=== PATIENT | male | born 1965 | race Caucasian/White ===

== ENCOUNTER 2016-10-15 17:37 | Emergency (ER) | payer BC ==
[2016-10-15 17:52] VITALS: O2SAT 99
[2016-10-15] MEDS ORDERED: solu-MEDROL 125 MG IM ONE (18:37)
[2016-10-15] MEDS ORDERED: DUONEB 0.5-3 MG/3 ml Neb IH ONE ×2 (18:37→18:42)
[2016-10-15] MEDS ORDERED: solu-MEDROL 125 MG ONE (18:38)
--- NOTE | 2016-10-15 18:39 | ERPHSYRPT ---
- History of Present Illness Time Seen by Provider: 10/15/16 18:32 Source: patient Exam Limitations: no limitations Patient Subjective Stated Complaint: cough Triage Nursing Assessment: cough intermittent for 4 weeks. yellow/green sputum production. no fever. clear nasal drainage. lungs clear. states gets sob with excertion. dry cough noted. moist oral membranes Physician History: The patient is a 50-year-old male with his complaining of a cough and shortness of breath for 4 weeks. He has been treated twice with antibiotics. The last antibiotic was a Z-Arnaldo. He has a past medical history of COPD and asthma. He took a breathing treatment today because a cough and shortness of breath or worsening and the breathing treatment did not help. His past medical history also includes diabetes. Timing/Duration: week(s) (4) Cough Quality/Degree: dry cough Possible Cause: occasional episodes Modifying Factors: Improves With: activity, albuterol inhaler, coughing Associated Symptoms: chest pain/soreness, cough, shortness of breath, wheezing Allergies/Adverse Reactions: lisinopril Allergy (Mild, Verified 10/15/16 17:52) Hives naproxen Allergy (Mild, Verified 10/15/16 17:52) Hives Iodinated Contrast Media - Oral and [Iodinated Contrast Media - IV Dye] Adverse Reaction (Verified 10/15/16 17:52) Home Medications: Fluticasone/Salmeterol 500/50* [Advair 500-50 Diskus] 1 each IH BID PRN 02/26 [History] Hydrocodone/APAP 5/325 [[place] 5/325 mg] 1 tab PO Q6H PRN PRN 02/26/15 [ History] Metformin HCl 500 mg [Glucophage 500 MG] 500 mg PO BID 02/26/15 [History] Nebivolol HCl 5 MG [Bystolic 5 MG] 10 mg PO DAILY 02/26/15 [History] Loperamide HCl [Loperamide] 2 tab PO TID 10/31/15 [History] Albuterol 2.5 mg/3 ml Neb [Proventil 2.5 mg/3 ml Neb] 2.5 mg IH TIDPRN PRN 10/15/16 [History] Albuterol Sulfate [Proair Hfa] 8.5 gm IH QIDPRN PRN 10/15/16 [History] Hx Tetanus, Diphtheria Vaccination/Date Given: Yes Hx Influenza Vaccination/Date Given: No Hx Pneumococcal Vaccination/Date Given: No Immunizations Up to Date: Yes - Review of Systems Constitutional: No Fever, No Chills Eyes: No Symptoms Ears, Nose, & Throat: No Symptoms Respiratory: Cough, Dyspnea on Exertion (CURRAN) Cardiac: No Chest Pain, No Edema, No Syncope Abdominal/Gastrointestinal: No Abdominal Pain, No Nausea, No Vomiting, No Diarrhea Genitourinary Symptoms: No Dysuria Musculoskeletal: No Back Pain, No Neck Pain Skin: No Rash Neurological: No Dizziness, No Focal Weakness, No Sensory Changes Psychological: No Symptoms Endocrine: No Symptoms All Other Systems: Reviewed and Negative - Past Medical History Pertinent Past Medical History: Yes Neurological History: No Pertinent History ENT History: No Pertinent History Cardiac History: High Cholesterol, Hypertension Respiratory History: Asthma, Lung Cancer Endocrine Medical History: Diabetes Type II Musculoskeletal History: No Pertinent History GI Medical History: No Pertinent History History: No Pertinent History Psycho-Social History: No Pertinent History Male Reproductive Disorders: No Pertinent History Other Medical History: Lung CA in remission. - Past Surgical History Past Surgical History: Yes Neuro Surgical History: No Pertinent History Cardiac: No Pertinent History Respiratory: Lobectomy Gastrointestinal: Cholecystectomy Genitourinary: No Pertinent History Musculoskeletal: No Pertinent History Male Surgical History: No Pertinent History Other Surgical History: Lung resection for carcinoid tumor. lt Wrist surgery - Social History Smoking Status: Never smoker Exposure to second hand smoke: Yes Drug Use: none Patient Lives Alone: No Significant Family History: no pertinent family hx - Nursing Vital Signs Nursing Vital Signs: Initial Vital Signs Temperature 98.7 F Temperature Source Oral Pulse Rate 93 Respiratory Rate 24 Blood Pressure [Right Arm] 180/128 Pain Intensity 8 - Physical Exam General Appearance: no apparent distress, alert Eye Exam: PERRL/EOMI, eyes nml inspection Ears, Nose, Throat Exam: normal ENT inspection, TMs normal, pharynx normal, moist mucous membranes Neck Exam: normal inspection, non-tender, supple, full range of motion Respiratory Exam: diminished breath sounds Cardiovascular Exam: regular rate/rhythm, normal heart sounds Gastrointestinal/Abdomen Exam: soft, No tenderness Rectal Exam: not done Back Exam: normal inspection, No CVA tenderness, No vertebral tenderness Extremity Exam: normal inspection, normal range of motion Neurologic Exam: alert, oriented x 3, cooperative, normal mood/affect, sensation nml, No motor deficits Skin Exam: normal color, warm, dry, No rash Lymphatic Exam: No adenopathy SpO2 Interpretation: normal SpO2: 99 Oxygen Delivery: Room Air - Radiology Exams Chest X-ray Interpretation: Interpreted by me, Negative, Other (No acute, granulomatous disease, scarring right lung, comp cxr 02/26/16) Ordered Tests: Active Orders 24 hr Category Date Time Status CHEST 2 VIEWS (PA AND LAT) Stat Exams 10/15/16 18:37 Ordered Respiratory Nebulizer STAT RT 10/15/16 18:38 Active Medication Summary Discontinued Medications Generic Name Dose Route Start Last Admin Trade Name Melloq PRN Reason Stop Dose Admin Albuterol/Ipratropium 3 ml 10/15/16 18:37 10/15/16 18:50 Duoneb 0.5-3 Mg/3 Ml Neb IH 10/15/16 18:38 3 ml STAT ONE Administration Albuterol/Ipratropium Confirm 10/15/16 18:42 Duoneb 0.5-3 Mg/3 Ml Neb Administered 10/15/16 18:43 Dose 3 ml IH .STK-MED ONE Methylprednisolone Sodium Succinate 125 mg 10/15/16 18:37 Solu-Medrol 125 Mg IM 10/15/16 18:38 STAT ONE Methylprednisolone Sodium Succinate Confirm 10/15/16 18:38 Solu-Medrol 125 Mg Administered 10/15/16 18:39 Dose 125 mg .ROUTE .STK-MED ONE - Progress Progress: improved Air Movement: good Progress Note: 10/15/16 18:56 Pt feeling better after solumedrol 125 mg IV and duo neb treatment. Blood Culture(s) Obtained: No Antibiotics given: No Counseled pt/family regarding: diagnosis, rad results - Departure Time of Disposition: 18:56 Departure Disposition: Home Clinical Impression: Bronchitis Condition: Stable Critical Care Time: No Additional Instructions: You have bronchitis. You were given solumedrol 125 mg IM in the ER. Take prednisones 60 mg daily for 5 days. Take augmentin 875 twice a day for 10 days. Use your breathing treatments as needed. Follow up as needed. Prescriptions: Amoxicillin/Potassium Clav [Augmentin 875-125 Tablet] 875 mg PO BID #20 tablet Prednisone 10 mg [Deltasone 10 mg] 60 mg PO DAILY #30 tablet
[2016-10-15 19:10] VITALS: BP 130/71; PULSE 70
--- NOTE | 2016-10-16 08:50 | XRAY ---
Indication: Cough and short of breath. COPD. History of lung cancer with surgery. Comparison: February 25, 2013. PA/lateral chest demonstrates stable right mid to lower lung pleural-parenchymal opacity presumed postoperative. Remaining lungs clear. Heart is not enlarged. Bony thorax intact again with minimal degenerative changes. Impression: Stable nonacute chest with chronic features.
== END 2016-10-15 19:10 | disposition home or self-care (01) ==
LOC: ED 17:37
DX: J40 Bronchitis, not specified as acute or chronic (principal); R05 Cough; R06.02 Shortness of breath; E11.8 Type 2 diabetes mellitus with unspecified complications; I10 Essential (primary) hypertension; E78.00 Pure hypercholesterolemia, unspecified; Z79.84 Long term (current) use of oral hypoglycemic drugs; Z79.899 Other long term (current) drug therapy
CPT/HCPCS: 71020; 94640; 96372; 99284; J2930; A9270-GY

== ENCOUNTER 2016-11-09 17:16 | Emergency (ER) | payer BC ==
[2016-11-09 17:56] VITALS: O2SAT 97
[2016-11-09] MEDS ORDERED: Sodium Chloride 0.9% 1000 ML 1,000 ML ONE (18:03)
[2016-11-09] MEDS ORDERED: Zofran 4 MG/2 ML VIAL ONE (18:03)
[2016-11-09] MEDS ORDERED: Sodium Chloride 0.9% 1000 ML 1,000 ML IV STA (18:03)
[2016-11-09] MEDS ORDERED: Zofran 4 MG/2 ML VIAL IV ONE (18:03)
--- NOTE | 2016-11-09 18:08 | ERPHSYRPT ---
- History of Present Illness Time Seen by Provider: 11/09/16 18:06 Source: patient Exam Limitations: no limitations Patient Subjective Stated Complaint: states he hasnt felt well in week been puking fever nausea Triage Nursing Assessment: has been vomitting cannot keep anything down , lungs sounds clear, no cough, knows his blood pressure is high because he cannot keep b/p medicine down either Physician History: 50-year-old male came to the emergency room with complaining of nausea, vomiting , fever, generalized malaise and flulike symptoms for last 2-3 days. Since yesterday he is vomiting got worse and he could not keep anything down so he came to the emergency room. He is also complaining of headache. Timing/Duration: day(s) (2-3 days) Cough Quality/Degree: no cough Possible Cause: no prior episodes Associated Symptoms: fever, chills, muscle aches, other (vomiting) Allergies/Adverse Reactions: lisinopril Allergy (Mild, Verified 11/09/16 17:57) Hives naproxen Allergy (Mild, Verified 11/09/16 17:57) Hives Iodinated Contrast Media - Oral and [Iodinated Contrast Media - IV Dye] Adverse Reaction (Verified 11/09/16 17:57) Home Medications: Fluticasone/Salmeterol 500/50* [Advair 500-50 Diskus] 1 each IH BID PRN 02/26 [History] Hydrocodone/APAP 5/325 [[place] 5/325 mg] 1 tab PO Q6H PRN PRN 02/26/15 [ History] Metformin HCl 500 mg [Glucophage 500 MG] 500 mg PO BID 02/26/15 [History] Nebivolol HCl 5 MG [Bystolic 5 MG] 10 mg PO DAILY 02/26/15 [History] Loperamide HCl [Loperamide] 2 tab PO TID 10/31/15 [History] Albuterol 2.5 mg/3 ml Neb [Proventil 2.5 mg/3 ml Neb] 2.5 mg IH TIDPRN PRN 10/15/16 [History] Albuterol Sulfate [Proair Hfa] 8.5 gm IH QIDPRN PRN 10/15/16 [History] Hx Tetanus, Diphtheria Vaccination/Date Given: Yes Hx Influenza Vaccination/Date Given: Yes Hx Pneumococcal Vaccination/Date Given: No Immunizations Up to Date: Yes - Review of Systems Constitutional: Fever, Chills, Malaise Eyes: No Symptoms Ears, Nose, & Throat: No Symptoms Respiratory: No Cough, No Dyspnea Cardiac: No Chest Pain, No Edema, No Syncope Abdominal/Gastrointestinal: Nausea, Vomiting, No Abdominal Pain, No Diarrhea Genitourinary Symptoms: No Dysuria Musculoskeletal: No Back Pain, No Neck Pain Skin: No Rash Neurological: Headache, No Dizziness, No Focal Weakness, No Sensory Changes Psychological: No Symptoms Endocrine: No Symptoms All Other Systems: Reviewed and Negative - Past Medical History Pertinent Past Medical History: Yes Neurological History: No Pertinent History ENT History: No Pertinent History Cardiac History: High Cholesterol, Hypertension Respiratory History: Asthma, Lung Cancer Endocrine Medical History: Diabetes Type II Musculoskeletal History: No Pertinent History GI Medical History: No Pertinent History History: No Pertinent History Psycho-Social History: No Pertinent History Male Reproductive Disorders: No Pertinent History Other Medical History: Lung CA in remission. - Past Surgical History Past Surgical History: Yes Neuro Surgical History: No Pertinent History Cardiac: No Pertinent History Respiratory: Lobectomy Gastrointestinal: Cholecystectomy Genitourinary: No Pertinent History Musculoskeletal: No Pertinent History Male Surgical History: No Pertinent History Other Surgical History: Lung resection for carcinoid tumor. lt Wrist surgery - Social History Smoking Status: Never smoker Exposure to second hand smoke: Yes Drug Use: none Patient Lives Alone: No Significant Family History: no pertinent family hx - Nursing Vital Signs Nursing Vital Signs: Initial Vital Signs Temperature 99.4 F Temperature Source Oral Pulse Rate 80 Respiratory Rate 20 Blood Pressure [Right Arm] 162/100 Pain Intensity 5 - Physical Exam General Appearance: no apparent distress, alert Eye Exam: PERRL/EOMI, eyes nml inspection Ears, Nose, Throat Exam: normal ENT inspection, TMs normal, pharynx normal, moist mucous membranes Neck Exam: normal inspection, non-tender, supple, full range of motion Respiratory Exam: normal breath sounds, lungs clear, No respiratory distress Cardiovascular Exam: regular rate/rhythm, normal heart sounds Gastrointestinal/Abdomen Exam: soft, No tenderness Back Exam: normal inspection, No CVA tenderness, No vertebral tenderness Extremity Exam: normal inspection, normal range of motion Neurologic Exam: alert, oriented x 3, cooperative, normal mood/affect, sensation nml, No motor deficits Skin Exam: normal color, warm, dry, No rash Lymphatic Exam: No adenopathy SpO2: 97 Oxygen Delivery: Room Air - Course Nursing assessment & vital signs reviewed: Yes Ordered Tests: Active Orders 24 hr Category Date Time Status IV Insertion STAT Care 11/09/16 18:15 Active CBC W DIFF Stat Lab 11/09/16 18:13 Completed CMP Stat Lab 11/09/16 18:13 Completed Medication Summary Generic Name Dose Route Start Last Admin Trade Name Freq PRN Reason Stop Dose Admin Sodium Chloride 1,000 mls @ 999 mls/hr 11/09/16 18:03 11/09/16 18:05 Sodium Chloride 0.9% 1000 Ml IV 11/09/16 19:03 999 mls/hr .Q1H1M STA Administration Discontinued Medications Generic Name Dose Route Start Last Admin Trade Name Freq PRN Reason Stop Dose Admin Sodium Chloride Confirm 11/09/16 18:03 Sodium Chloride 0.9% 1000 Ml Administered 11/09/16 18:04 Dose 1,000 mls @ ud .ROUTE .STK-MED ONE Ondansetron HCl 4 mg 11/09/16 18:03 11/09/16 18:05 Zofran 4 Mg/2 Ml Vial IV 11/09/16 18:04 4 mg STAT ONE Administration Ondansetron HCl Confirm 11/09/16 18:03 Zofran 4 Mg/2 Ml Vial Administered 11/09/16 18:04 Dose 4 mg .ROUTE .STK-MED ONE Lab/Rad Data: Laboratory Result Diagrams 11/09/16 18:13 11/09/16 18:13 Laboratory Results 11/09/16 11/09/16 Range/Units 18:13 18:13 WBC 3.6 L (4.0-10.5) K/mm3 RBC 5.02 (4.1-5.6) M/mm3 Hgb 15.2 (12.5-18.0) gm/dl Hct 43.0 (42-50) % MCV 85.7 (78-100) fl MCH 30.3 (26-32) pg MCHC 35.3 (32-36) g/dl RDW 13.3 (11.5-14.0) % Plt Count 187 (150-450) K/mm3 MPV 9.3 (6-9.5) fl Gran % 52.2 (36.0-66.0) % Lymphocytes % 29.7 (24.0-44.0) % Monocytes % 17.3 H (0.0-12.0) % Eosinophils % 0.3 (0.00-5.0) % Basophils % 0.5 (0.0-0.4) % Basophils # 0.02 (0-0.4) Sodium 140 (136-145) mEq/L Potassium 4.2 (3.5-5.1) mEq/L Chloride 102 (98-107) mEq/L Carbon Dioxide 26.5 (21-32) mEq/L Anion Gap 15.8 H (5-15) MEQ/L BUN 18 (9-20) mg/dL Creatinine 1.37 H (0.55-1.30) mg/dl Estimated GFR 58 ML/MIN Glucose 311 H (70-110) MG/DL Calcium 9.1 (8.5-10.1) mg/dL Total Bilirubin 0.6 (0.2-1.0) mg/dL AST 26 (15-37) U/L ALT 37 (12-78) U/L Alkaline Phosphatase 88 (46-116) U/L Serum Total Protein 7.2 (6.4-8.2) gm/dL Albumin 4.1 (3.4-5.0) g/dL - Progress Progress: improved Air Movement: good Blood Culture(s) Obtained: No Antibiotics given: No Counseled pt/family regarding: lab results, diagnosis, need for follow-up - Departure Time of Disposition: 18:51 Departure Disposition: Home Clinical Impression: Influenza Diabetes type 2, controlled Qualifiers: Diabetes mellitus complication status: without complication Diabetes mellitus nursing home insulin use: without nursing home use Qualified Code(s): E11.9 - Type 2 diabetes mellitus without complications Condition: Stable Critical Care Time: No Referrals: HARRISON VENTURA MD [Primary Care Provider] - Instructions: Influenza -- Adult Additional Instructions: VIRAL ILLNESS 1. Rest at home and take any prescribed medications as directed or until gone. 2. Offer plenty of fluids as tolerated. 3. Acetaminophen or Ibuprofen as directed. 4. Be sure to follow up with your family physician or return to the emergency department if symptoms change or become worse. VOMITING AND DIARRHEA 1. Take only small amounts of clear, cool liquids at frequent intervals as tolerated for the next 24-48 hours. Avoid milk products and orange juice. Clear liquids are those liquids which you can see through. 2. Pedialyte and popsicles are recommended clear liquids. 3. If the condition worsens you should contact your family physician or return to the emergency department for re-evaluation. Forms: Work/School Release Form Prescriptions: Oseltamivir 75 mg [Tamiflu 75MG Capsule] 75 mg PO BID #10 cap Ondansetron [Zofran Odt] 4 mg PO Q6H #20 tab.[email or web address]
[2016-11-09 18:17] LABS: BASOPHIL % 0.5 % (0.0-0.4); Eosinophil % 0.3 % (0.00-5.0); Granulocytes % 52.2 % (36.0-66.0); Lymphocytes % 29.7 % (24.0-44.0); Mean Cell Volume 85.7 fl (78-100); Mean Corpuscular Hemoglobin 30.3 pg (26-32); Mean Platelet Volume 9.3 fl (6-9.5); Monocytes % 17.3 % (0.0-12.0); Platelet Count 187 K/mm3 (150-450); Red Blood Count 5.02 M/mm3 (4.1-5.6); Red Cell Distribution Width 13.3 % (11.5-14.0); White Blood Count 3.6 K/mm3 (4.0-10.5)
[2016-11-09 18:37] LABS: ALBUMIN 4.1 g/dL (3.4-5.0); ANION GAP 15.8 MEQ/L (5-15); BILIRUBIN,TOTAL 0.6 mg/dL (0.2-1.0); Carbon Dioxide 26.5 mEq/L (21-32); Potassium 4.2 mEq/L (3.5-5.1); Total Protein 7.2 gm/dL (6.4-8.2)
[2016-11-09] MEDS ORDERED: Tamiflu 75MG Capsule PO ONE ×2 (18:51→18:53)
[2016-11-09 20:14] VITALS: BP 150/90; PULSE 82
== END 2016-11-09 20:14 | disposition home or self-care (01) ==
LOC: ED 17:16
DX: J44.1 Chronic obstructive pulmonary disease with (acute) exacerbation (principal); E11.9 Type 2 diabetes mellitus without complications; R50.9 Fever, unspecified; R11.2 Nausea with vomiting, unspecified; Z79.84 Long term (current) use of oral hypoglycemic drugs; Z79.899 Other long term (current) drug therapy; E78.00 Pure hypercholesterolemia, unspecified; I10 Essential (primary) hypertension
CPT/HCPCS: 36000; 36415; 80053; 85025; 87631; 96360; 96365; 96374; 99284; J2405; A9270-GY

== ENCOUNTER 2017-10-17 17:54 | Inpatient (IN) | payer BC ==
[2017-10-17] MEDS ORDERED: BABY ASPIRIN 81 MG CHEW PO ONE (19:19)
[2017-10-17] MEDS ORDERED: Nitrostat 0.4 MG (ED) SL ONE ×2 (19:19→19:30)
--- NOTE | 2017-10-17 19:19 | ERPHSYRPT ---
- History of Present Illness Time Seen by Provider: 10/17/17 18:16 Historian: patient Exam Limitations: no limitations Patient Subjective Stated Complaint: pt reports increased sob over last few days -reports being dx with bronchitis a few days ago-pt has lung cancer Triage Nursing Assessment: pt flushed warm and [id number] labored upon arrival-lungs diminished Physician History: pt reports feeling like pressure on his chest after treatmetn for URI on steroids and AB and remote Hx of right lung resection for carcinoid; chronic asthma also; no N/V no fever, no prior cardiac; prior similar feelings with resp per pt. Timing/Duration: today, day(s) Activities at Onset: none Quality: fullness, pressure, tightness Location: substernal Chest Pain Radiation: no radiation Severity of Pain-Max: moderate Severity of Pain-Current: moderate Modifying Factors: Improves With: coughing Associated Symptoms: shortness of breath, cough Nitro Today/Relief: 0.4 mg x 1, provided by ED Aspirin Treatment Today: 81 mg x 4, provided by ED Allergies/Adverse Reactions: lisinopril Allergy (Mild, Verified 10/17/17 17:58) Hives naproxen Allergy (Mild, Verified 10/17/17 17:58) Hives Iodinated Contrast- Oral and IV Dye [Iodinated Contrast Media - IV Dye] Adverse Reaction (Verified 10/17/17 17:58) Home Medications: Fluticasone/Salmeterol 500/50* [Advair 500-50 Diskus] 1 each IH BID PRN 02/26 [History] Hydrocodone/APAP 5/325 [[place] 5/325 mg] 1 tab PO Q6H PRN PRN 02/26/15 [ History] Metformin HCl 500 mg [Glucophage 500 MG] 500 mg PO BID 02/26/15 [History] Nebivolol HCl 5 MG [Bystolic 5 MG] 10 mg PO DAILY 02/26/15 [History] Loperamide HCl [Loperamide] 2 tab PO TID 10/31/15 [History] Albuterol 2.5 mg/3 ml Neb [Proventil 2.5 mg/3 ml Neb] 2.5 mg IH TIDPRN PRN 10/15/16 [History] Albuterol Sulfate [Proair Hfa] 8.5 gm IH QIDPRN PRN 10/15/16 [History] Hx Tetanus, Diphtheria Vaccination/Date Given: Yes Hx Influenza Vaccination/Date Given: Yes Hx Pneumococcal Vaccination/Date Given: No Immunizations Up to Date: Yes - Review of Systems Constitutional: No Fever, No Chills Eyes: No Symptoms Ears, Nose, & Throat: No Symptoms Respiratory: Cough, Dyspnea Cardiac: Chest Pain, No Edema, No Syncope Abdominal/Gastrointestinal: No Abdominal Pain, No Nausea, No Vomiting, No Diarrhea Genitourinary Symptoms: No Dysuria Musculoskeletal: No Back Pain, No Neck Pain Skin: No Rash Neurological: No Dizziness, No Focal Weakness, No Sensory Changes Psychological: No Symptoms Endocrine: No Symptoms All Other Systems: Reviewed and Negative - Past Medical History Pertinent Past Medical History: Yes Neurological History: No Pertinent History ENT History: No Pertinent History Cardiac History: High Cholesterol, Hypertension Respiratory History: Asthma, Lung Cancer Endocrine Medical History: Diabetes Type II Musculoskeletal History: No Pertinent History GI Medical History: No Pertinent History History: No Pertinent History Psycho-Social History: No Pertinent History Male Reproductive Disorders: No Pertinent History Other Medical History: Lung CA in remission. - Past Surgical History Past Surgical History: Yes Neuro Surgical History: No Pertinent History Cardiac: No Pertinent History Respiratory: Lobectomy Gastrointestinal: Cholecystectomy Genitourinary: No Pertinent History Musculoskeletal: No Pertinent History Male Surgical History: No Pertinent History Other Surgical History: Lung resection for carcinoid tumor. lt Wrist surgery - Social History Smoking Status: Never smoker Exposure to second hand smoke: Yes Drug Use: none Patient Lives Alone: No Significant Family History: no pertinent family hx - Nursing Vital Signs Nursing Vital Signs: Initial Vital Signs Temperature 98.1 F 10/17/17 17:54 Pulse Rate 91 H 10/17/17 17:54 Respiratory Rate 18 10/17/17 17:54 Blood Pressure 177/94 10/17/17 17:54 O2 Sat by Pulse Oximetry 100 10/17/17 17:54 Pain Scale Pain Intensity 7 - Physical Exam General Appearance: no apparent distress, alert Eye Exam: PERRL/EOMI, eyes nml inspection Ears, Nose, Throat Exam: normal ENT inspection, moist mucous membranes Neck Exam: normal inspection, non-tender, supple, full range of motion Respiratory Exam: normal breath sounds, lungs clear, No respiratory distress Cardiovascular Exam: regular rate/rhythm, normal heart sounds Gastrointestinal/Abdomen Exam: soft, No tenderness, No mass Rectal Exam: deferred Back Exam: normal inspection, No CVA tenderness, No vertebral tenderness Extremity Exam: normal inspection, normal range of motion Neurologic Exam: alert, oriented x 3, cooperative, normal mood/affect, sensation nml, No motor deficits Skin Exam: normal color, warm, dry SpO2: 97 Oxygen Delivery: Room Air - Course Nursing assessment & vital signs reviewed: Yes EKG Interpreted by Me: Sinus Rhythm, Right Bundle Branch Block (incomplete), Non -specific ST Changes, Other (poor r wave prog) - Radiology Exams Chest X-ray Interpretation: Reviewed by me, No Pneumonia, No Infiltrates, Other (old scar /atelectasis) Ordered Tests: Active Orders 24 hr Category Date Time Status Planner Chief STAT Care 10/17/17 19:21 Active Clean Catch Urine Specimen STAT Care 10/17/17 18:16 Active EKG-ER Only STAT Care 10/17/17 18:14 Active IV Insertion STAT Care 10/17/17 18:14 Active Pulse Oximetry (ED) STAT Care 10/17/17 18:14 Active CHEST 1 VIEW (PORTABLE) Stat Exams 10/17/17 19:21 Completed CBC W DIFF Stat Lab 10/17/17 18:15 Completed CMP Stat Lab 10/17/17 18:15 Completed Lactic Acid Stat Lab 10/17/17 19:19 Ordered NT PRO BNP Stat Lab 10/17/17 18:15 Completed TROPONIN Q3H Lab 10/17/17 21:30 Completed TROPONIN Q3H Lab 10/18/17 00:30 Ordered TROPONIN Q3H Lab 10/18/17 03:30 Ordered TROPONIN Q3H Lab 10/18/17 06:30 Ordered TROPONIN Q3H Lab 10/18/17 09:30 Ordered Medication Summary Generic Name Dose Route Start Last Admin Trade Name Freq PRN Reason Stop Dose Admin Sodium Chloride 1,000 mls @ 100 mls/hr 10/17/17 19:30 10/17/17 19:31 Sodium Chloride 0.9% 1000 Ml IV 11/16/17 19:29 100 mls/hr .Q10H LEONIE Administration Sodium Chloride 1,000 mls @ 999 mls/hr 10/17/17 21:41 Sodium Chloride 0.9% 1000 Ml IV 10/17/17 22:41 .Q1H1M STA Discontinued Medications Generic Name Dose Route Start Last Admin Trade Name Rosalba PRN Reason Stop Dose Admin Aspirin 324 mg 10/17/17 19:19 10/17/17 19:31 Baby Aspirin 81 Mg Chew PO 10/17/17 19:20 324 mg STAT ONE Administration Aspirin Confirm 10/17/17 19:29 Baby Aspirin 81 Mg Chew Administered 10/17/17 19:30 Dose 324 mg .ROUTE .STK-MED ONE Nitroglycerin 0.4 mg 10/17/17 19:19 10/17/17 19:31 Nitrostat 0.4 Mg (Ed) SL 10/17/17 19:20 0.4 mg STAT ONE Administration Nitroglycerin Confirm 10/17/17 19:30 Nitrostat 0.4 Mg (Ed) Administered 10/17/17 19:31 Dose 0.4 mg SL .STK-MED ONE Lab/Rad Data: Laboratory Result Diagrams 10/17/17 18:15 10/17/17 18:15 Laboratory Results 10/17/17 10/17/17 10/17/17 Range/Units 21:30 19:45 18:15 WBC (4.0-10.5) K/mm3 RBC (4.1-5.6) M/mm3 Hgb (12.5-18.0) gm/dl Hct (42-50) % MCV (78-100) fl MCH (26-32) pg MCHC (32-36) g/dl RDW (11.5-14.0) % Plt Count (150-450) K/mm3 MPV (6-9.5) fl Gran % (36.0-66.0) % Lymphocytes % (24.0-44.0) % Monocytes % (0.0-12.0) % Eosinophils % (0.00-5.0) % Basophils % (0.0-0.4) % Basophils # (0-0.4) Sodium 123 L (137-145) mmol/L Potassium 3.9 (3.5-5.1) mmol/L Chloride 87 L (98-107) mmol/L Carbon Dioxide 19 L (22-30) mmol/L Anion Gap 21.1 H (5-15) MEQ/L BUN 16 (9-20) mg/dL Creatinine 1.00 (0.66-1.25) mg/dL Estimated GFR > 60 ML/MIN Glucose 876 H (74-106) mg/dL Calcium 9.3 (8.4-10.2) mg/dL Total Bilirubin 0.50 (0.2-1.3) mg/dL AST 29 (17-59) U/L ALT 35 (0-50) U/L Alkaline Phosphatase 117 (38-126) U/L Troponin I < 0.012 (0.000-0.034) ng/mL NT-Pro-B Natriuret Pep 56.9 (0-900) pg/mL Serum Total Protein 6.3 (6.3-8.2) g/dL Albumin 4.0 (3.5-5.0) g/dL Influenza Type A Ag NEGATIVE (NEGATIVE) Influenza Type B Ag NEGATIVE (NEGATIVE) RSV (PCR) NEGATIVE (Negative) 10/17/17 Range/Units 18:15 WBC 9.8 (4.0-10.5) K/mm3 RBC 4.56 (4.1-5.6) M/mm3 Hgb 13.9 (12.5-18.0) gm/dl Hct 39.5 L (42-50) % MCV 86.6 (78-100) fl MCH 30.5 (26-32) pg MCHC 35.2 (32-36) g/dl RDW 12.6 (11.5-14.0) % Plt Count 263 (150-450) K/mm3 MPV 10.4 H (6-9.5) fl Gran % 75.7 H (36.0-66.0) % Lymphocytes % 18.1 L (24.0-44.0) % Monocytes % 5.9 (0.0-12.0) % Eosinophils % 0.1 (0.00-5.0) % Basophils % 0.2 (0.0-0.4) % Basophils # 0.02 (0-0.4) Sodium (137-145) mmol/L Potassium (3.5-5.1) mmol/L Chloride (98-107) mmol/L Carbon Dioxide (22-30) mmol/L Anion Gap (5-15) MEQ/L BUN (9-20) mg/dL Creatinine (0.66-1.25) mg/dL Estimated GFR ML/MIN Glucose (74-106) mg/dL Calcium (8.4-10.2) mg/dL Total Bilirubin (0.2-1.3) mg/dL AST (17-59) U/L ALT (0-50) U/L Alkaline Phosphatase (38-126) U/L Troponin I (0.000-0.034) ng/mL NT-Pro-B Natriuret Pep (0-900) pg/mL Serum Total Protein (6.3-8.2) g/dL Albumin (3.5-5.0) g/dL Influenza Type A Ag (NEGATIVE) Influenza Type B Ag (NEGATIVE) RSV (PCR) (Negative) - Progress Progress: improved, re-examined Air Movement: good Progress Note: 10/17/17 21:54 discussed with pt , family and Dr Ervin covering and will admit for Diabetes control and rehydration Blood Culture(s) Obtained: No Antibiotics given: Yes Discussed with Dr.: Wally Tian Will see patient in: hospital (full admit) Counseled pt/family regarding: lab results, diagnosis, need for follow-up, rad results - Departure Time of Disposition: 21:55 Departure Disposition: In-patient Admission Clinical Impression: Nonketotic hyperglycinemia Condition: Good Critical Care Time: No Referrals: HARRISON VENTURA MD [Primary Care Provider] -
[2017-10-17] MEDS ORDERED: BABY ASPIRIN 81 MG CHEW ONE (19:29)
[2017-10-17] MEDS: Sodium Chloride 0.9% 1000 ML 1,000 ML IV SCH (19:31)
[2017-10-17 19:32] LABS: BASOPHIL % 0.2 % (0.0-0.4); Basophil (Absolute #) 0.02 (0-0.4); Eosinophil % 0.1 % (0.00-5.0); Eosinophil (Absolute #) 0.01 (0-0.5); Granulocyte Absolute (ANC) 7.39 (1.4-6.9); Granulocytes % 75.7 % (36.0-66.0); Hematocrit 39.5 % (42-50); Hemoglobin 13.9 gm/dl (12.5-18.0); Lymphocyte (Absolute #) 1.77 (1.0-4.6); Lymphocytes % 18.1 % (24.0-44.0); Mean Cell Volume 86.6 fl (78-100); Mean Corpuscular Hemoglobin 30.5 pg (26-32); Mean Corpuscular Hgb Concent. 35.2 g/dl (32-36); Mean Platelet Volume 10.4 fl (6-9.5); Monocyte (Absolute #) 0.58 (0.0-1.3); Monocytes % 5.9 % (0.0-12.0); Platelet Count 263 K/mm3 (150-450); Red Blood Count 4.56 M/mm3 (4.1-5.6); Red Cell Distribution Width 12.6 % (11.5-14.0); White Blood Count 9.8 K/mm3 (4.0-10.5)
[2017-10-17 19:35] LABS: ALKALINE PHOSPHATASE 117 U/L (38-126); ANION GAP 21.1 MEQ/L (5-15); BLOOD UREA NITROGEN 16 mg/dL (9-20); CHLORIDE 87 mmol/L (98-107); Calcium 9.3 mg/dL (8.4-10.2); Carbon Dioxide 19 mmol/L (22-30); Potassium 3.9 mmol/L (3.5-5.1); SGOT/AST 29 U/L (17-59); SODIUM 123 mmol/L (137-145); Total Protein 6.3 g/dL (6.3-8.2)
[2017-10-17 19:43] LABS: NT PRO BNP 56.9 pg/mL (0-900)
[2017-10-17 20:09] LABS: SGPT/ALT 35 U/L (0-50)
[2017-10-17 20:20] LABS: Glucose 876 mg/dL (74-106)
[2017-10-17 20:24] LABS: INFLUENZA A NEGATIVE (NEGATIVE); INFLUENZA B NEGATIVE (NEGATIVE); RESPIRATORY SYNCTIAL VIRUS NEGATIVE (Negative)
--- NOTE | 2017-10-17 21:36 | XRAY ---
Indication: Chest pressure and short of breath. Comparison: October 15, 2016. Portable chest unchanged with stable right lung post surgical changes. Remaining heart and lungs unremarkable. Bony thorax intact. No new/acute findings.
[2017-10-17] MEDS ORDERED: Sodium Chloride 0.9% 1000 ML 1,000 ML IV STA (21:41)
[2017-10-17] MEDS ORDERED: NOVOLIN R INSULIN (FOR DRIPS)** 100 UNITS in Sodium Chloride 0.9% 100 ML IVPB 100 ML IV PRN (23:05)
[2017-10-17] MEDS ORDERED: Zofran 4 MG/2 ML VIAL IV PRN (23:05)
[2017-10-17] MEDS ORDERED: NovoLIN R ONE (23:09)
[2017-10-17] MEDS ORDERED: Sodium Chloride 0.9% 100 ML IVPB 100 ML IV ONE (23:10)
[2017-10-18] MEDS: Pepcid 20 MG VIAL IV SCH ×2 (01:08→10:19)
[2017-10-18 01:45] LABS: Lactic Acid 2.2 (0.4-2.0)
[2017-10-18 01:47] LABS: VBG BASE EXCESS -3.1 (-2.0-2.0); VBG CARBOXYHEMOGLOBIN 3.4 % T HGB (0.0-6.9); VBG HCO3- 21.2 meq/L (22-28); VBG HEMOGLOBIN 14.2; VBG O2 SATURATION 96.5 (95-100); VBG POTASSIUM 3.2 (3.5-5.1); VBG pH 7.39 (7.32-7.42)
[2017-10-18 02:02] LABS: ANION GAP 18.3 MEQ/L (5-15); BLOOD UREA NITROGEN 15 mg/dL (9-20); CHLORIDE 97 mmol/L (98-107); Calcium 9.2 mg/dL (8.4-10.2); Carbon Dioxide 19 mmol/L (22-30); Creatinine 1 0.71 mg/dL (0.66-1.25); Glucose 439 mg/dL (74-106); Potassium 3.3 mmol/L (3.5-5.1); SODIUM 130 mmol/L (137-145)
[2017-10-18] MEDS: POTASSIUM CHLORIDE 20 mEq IN WATER 100ML 20 MEQ/100 ML BAG IV SCH ×2 (02:35→05:06)
[2017-10-18] MEDS: Sodium Chloride 0.9% W/ 20 mEq KCl/LITER 1,000 ML IV SCH ×2 (02:58→07:32)
[2017-10-18 05:21] LABS: Lactic Acid 2.2 (0.4-2.0)
[2017-10-18 05:26] LABS: BASOPHIL % 0.2 % (0.0-0.4); Basophil (Absolute #) 0.02 (0-0.4); Eosinophil % 0.1 % (0.00-5.0); Eosinophil (Absolute #) 0.01 (0-0.5); Granulocyte Absolute (ANC) 6.63 (1.4-6.9); Granulocytes % 60.9 % (36.0-66.0); Hematocrit 36.7 % (42-50); Hemoglobin 13.2 gm/dl (12.5-18.0); Lymphocyte (Absolute #) 3.25 (1.0-4.6); Lymphocytes % 29.8 % (24.0-44.0); Mean Cell Volume 83.6 fl (78-100); Mean Corpuscular Hemoglobin 30.1 pg (26-32); Monocyte (Absolute #) 0.98 (0.0-1.3); Platelet Count 247 K/mm3 (150-450); Red Blood Count 4.39 M/mm3 (4.1-5.6); Red Cell Distribution Width 12.5 % (11.5-14.0); White Blood Count 10.9 K/mm3 (4.0-10.5)
[2017-10-18 05:34] LABS: ALBUMIN 3.7 g/dL (3.5-5.0); ALKALINE PHOSPHATASE 84 U/L (38-126); ANION GAP 13.8 MEQ/L (5-15); BLOOD UREA NITROGEN 14 mg/dL (9-20); CHLORIDE 100 mmol/L (98-107); Calcium 9.3 mg/dL (8.4-10.2); Carbon Dioxide 24 mmol/L (22-30); Creatinine 1 0.67 mg/dL (0.66-1.25); Glucose 206 mg/dL (74-106); Potassium 3.4 mmol/L (3.5-5.1); SGOT/AST 20 U/L (17-59); SGPT/ALT 28 U/L (0-50); SODIUM 135 mmol/L (137-145); Total Protein 6.1 g/dL (6.3-8.2)
[2017-10-18] MEDS ORDERED: ROCEPHIN 1 Gm-D5w 50 ml Bag** 1 G/50 ML IVPB IV SCH (10:00)
[2017-10-18] MEDS: Sodium Chloride 0.9% 1000 ML 1,000 ML IV SCH (10:18)
[2017-10-18 10:31] LABS: TROPONIN 0.013 ng/mL (0.000-0.034)
[2017-10-18] MEDS: NovoLOG Insulin SQ PRN ×3 (10:42→19:44)
[2017-10-18] MEDS ORDERED: PROVENTIL 2.5 MG/3 ML NEB IH PRN (13:59)
[2017-10-18] MEDS ORDERED: ADVAIR 500-50 DISKUS IH PRN (13:59)
[2017-10-18] MEDS ORDERED: Ventolin Hfa MDI IH PRN (13:59)
[2017-10-18] MEDS ORDERED: NORCO 5/325 MG PO PRN (13:59)
[2017-10-18] MEDS ORDERED: Bystolic 5 MG PO PRN (13:59)
[2017-10-18] MEDS ORDERED: AZITHROMYCIN 500 MG PO SCH (14:00)
[2017-10-18] MEDS ORDERED: Lantus Insulin SQ SCH (14:00)
[2017-10-18] MEDS ORDERED: PROVENTIL COMMON CANISTER IH PRN (14:06)
[2017-10-18 14:55] LABS: ANION GAP 11.5 MEQ/L (5-15); BLOOD UREA NITROGEN 14 mg/dL (9-20); CHLORIDE 100 mmol/L (98-107); Calcium 9.2 mg/dL (8.4-10.2); Carbon Dioxide 27 mmol/L (22-30); Creatinine 1 0.79 mg/dL (0.66-1.25); Glucose 331 mg/dL (74-106); Potassium 4.1 mmol/L (3.5-5.1); SODIUM 134 mmol/L (137-145)
[2017-10-18] MEDS ORDERED: IMODIUM 2 MG PO PRN (15:00)
[2017-10-18] MEDS ORDERED: Zithromax 250 MG TABLET PO SCH (15:00)
[2017-10-18 15:23] LABS: A-aADO2 19; ABG HEMOGLOBIN 14.4; ABG POTASSIUM 3.2 (3.5-5.1); ARTERIAL BLD GAS O2 SATURATION 100.8 % (95-100); ARTERIAL BLOOD GAS BASE EXCESS 0.9 (-2.0-2.0); ARTERIAL BLOOD GAS FIO2 21 %; ARTERIAL BLOOD GAS PCO2 33 mmHg (35-45); ARTERIAL BLOOD GAS PO2 89 mmHg (75-100); ARTERIAL BLOOD GAS pH 7.47 (7.35-7.45); CARBOXYHEMOGLOBIN 3.8 % THgb (0.0-6.9); HGB O2 SAT 96.6 g/dF (94-100); Methhemoglobin 0.5 % (1.4-1.5); paO2 pAO1 0.82
[2017-10-18 15:24] LABS: ABG SITE RIGHT BRACHIAL; ALLEN TEST OK? YES
[2017-10-18 15:41] LABS: Appearance CLEAR (CLEAR); Bilirubin NEGATIVE (NEGATIVE); Blood NEGATIVE Ery/ul (0-5); Glucose 1000 mg/dL (NEGATIVE); Ketones NEGATIVE (NEGATIVE); Leukocyte Esterase NEGATIVE (NEGATIVE); Nitrite NEGATIVE (NEGATIVE); Protein,Urine Dip NEGATIVE (Negative); Specific Gravity 1.015 (1.005-1.025); Urobilinogen NORMAL mg/dL (0-1)
[2017-10-18 17:32] VITALS: BP 149/96; PULSE 58; O2SAT 98
[2017-10-18] MEDS ORDERED: Advair Hfa 230/21 Mcg COMMON CANISTER IH SCH (19:00)
[2017-10-18] MEDS ORDERED: Pepcid 20 MG PO SCH (22:00)
[2017-10-19] MEDS ORDERED: LOPERAMIDE HCL PO SCH (10:00)
--- NOTE | 2017-10-19 10:03 | HP ---
HISTORY OF PRESENT ILLNESS: Albert Benítez is a 51 year old male with past medical history of hypertension, hyperlipidemia, lung cancer, diabetes mellitus. Reportedly his A1C was over 14 about four months ago. The patient states on routine medication of Metformin. He was not being well controlled and hence his medication was changed to another medication and insurance did not cover that. The patient did see Dr. Silva for office visit during last week with symptoms of bronchitis and was placed on antibiotics and steroids. He presented to the emergency room yesterday with symptoms of fatigue, chest pain or shortness of breath for a few weeks. There was no reported history of fever, nausea or vomiting. Initial vitals in the emergency room were blood pressure 177/94, heart rate 90, respiratory rate 18 and temperature 98.1F. Oxygen saturation of 100%. Initial lab work up was notable for CMP with glucose of 876, anion gap of 17. He was placed on insulin drip and was admitted to ICU for further monitoring and management. He was treated with nitroglycerin 0.4 mg sublingual x1, aspirin 81 mg x1, normal saline 1 liter x1. He was placed on insulin drip and was admitted to ICU for further monitoring and management. Since admission he was continued on insulin drip overnight with close monitoring of his Accu-Chek's. Eventually I was contacted by nurse. His nurse stated earlier this morning that his Accu-Chek is near 100 and at that time his insulin drip was discontinued. Further close monitoring of his Accu-Chek's was continued. Earlier the patient ate breakfast and his Accu-Chek's did increase to more than 300. At the time of this evaluation he is alert, awake and comfortable. He states overall he feels better from yesterday. Denies chest pain, increased shortness of breath. Denies any other new complaints. PAST MEDICAL HISTORY: As noted above. PAST SURGICAL HISTORY: Lobectomy, cholecystectomy. History of lung resection for carcinoid tumor, left wrist surgery. MEDICATIONS: Current medications were reviewed. ALLERGIES: LISINOPRIL, NAPROXEN, IODINATED CONTRAST. FAMILY HISTORY: Noncontributory. SOCIAL HISTORY: The patient has never smoked, denies illicit drug use. REVIEW OF SYSTEMS: Denies headache or dizziness. Complains of fatigue. History of chest pain, shortness of breath that has resolved. Complains of dry cough. Denies abdominal pain, nausea or vomiting. Denies constipation or diarrhea. Denies urinary complaints. PHYSICAL EXAMINATION: A middle aged male lying comfortably in bed, not in acute distress. VITAL SIGNS: Blood pressure 154/95, heart rate 65, respiratory rate 14, temperature 98.4F. Oxygen saturation 99% on room air. HEENT: No pallor or icterus is noted. NECK: No JVD is present. CVS: S1, S2 present. RESPIRATORY: Breath sounds are diminished. ABDOMEN: Soft, nontender. NEURO: He is alert, oriented x3. EXTREMITIES: No edema on bilateral lower extremities. LABORATORY DATA AND TESTS: Labs from admission showed unremarkable CBC. CBC notable for white blood cell count 10.9. ABG showed pH 7.39. Initial CMP was notable for sodium 123, BUN 15, creatinine 1, glucose 876. Liver function test within normal limits. Troponin has been within normal limits x4. Today's CMP showed sodium 130, potassium 3.3 (the day after replacement). Anion gap 13. Glucose 439. Flu A/B and respiratory syncytial virus were negative. Initial lactic acid was 2.2 x2 and 2.1 earlier today. NT-BNP was 56.9. Hemoglobin A1C is pending. Chest x-ray from 10/17/2017 showed stable right posterior lung surgical changes. No new or acute findings. ASSESSMENT: A 51 year old male with impression: 1) Hyperglycemia, improved. 2) History of diabetes mellitus, uncontrolled. 3) History of hypertension. 4) History of shortness of breath. 5) History of bronchitis. 6) History of lung cancer. 7) History of hyperlipidemia. PLAN: Will follow hemoglobin A1C. The patient was started on Levemir 10 units. First dose has been given now. Continue to monitor Accu-Chek's. Will obtain repeat BMP. I discussed with patient at length regarding strict compliance with medication as directed. Will obtain D-dimer. If work up is unremarkable and the patient improves he may likely be discharged home today? I have advised the patient to continue to monitor his Accu-Chek's close and comply with diet and medication recommendations as scheduled. The patient states that he would like see assurance officer and that will be arranged from office by Dr. Silva. If discharged, I have advised the patient to follow up with Dr. Silva in office in the next couple of days. Also I have advised him to continue to monitor his Accu-Chek's and call if abnormal readings are noted. I have advised him to return to the emergency room [facility] if any new signs, symptoms or reappearance of previous signs/symptoms are noted. The patient's clinical condition, work up results, plan of management as outlined was discussed with him at length. He seems to be in understanding and agreement. I have advised the patient to continue his antibiotics for bronchitis for now and discontinue his steroids. He seems to be in understanding and agreement. The plan was discussed with the patient's nurse, Skyler.
== END 2017-10-18 19:55 | disposition home or self-care (01) | DRG 639 ==
LOC: ED 17:54 → ICU 22:57
PROVIDERS: ADMIT General Practice; ATTEND General Practice
DX: E11.65 Type 2 diabetes mellitus with hyperglycemia (principal); R53.83 Other fatigue; R07.9 Chest pain, unspecified; I10 Essential (primary) hypertension; R06.02 Shortness of breath; Z85.118 Personal history of other malignant neoplasm of bronchus and lung; J40 Bronchitis, not specified as acute or chronic; Z79.899 Other long term (current) drug therapy
CPT/HCPCS: 36000; 36415; 36600; 71045; 80048; 80053; 81002; 82375; 82803; 82805; 82962; 83036; 83605; 83735; 83880; 84132; 84484; 85025; 85379; 87631; 93005; 93041; 96360; 96361; 99285; J0696; J1815; J3480; A9270-GY

== ENCOUNTER 2018-05-17 14:00 | Observation (INO) | payer BC ==
[2018-05-17] MEDS ORDERED: PROVENTIL 2.5 MG/3 ML NEB IH PRN (16:12)
[2018-05-17] MEDS ORDERED: Bystolic 5 MG PO PRN (16:39)
[2018-05-17] MEDS ORDERED: NORCO 5/325 MG PO PRN (16:39)
[2018-05-17] MEDS: Robitussin AC Syrup Unit Dose Cup PO PRN (17:03)
[2018-05-17] MEDS: Sodium Chloride 0.9% 1000 ML 1,000 ML IV SCH (17:03)
[2018-05-17] MEDS: ROCEPHIN 1 Gm-D5w 50 ml Bag** 1 G/50 ML IVPB IV SCH (17:04)
[2018-05-17 17:10] LABS: Granulocyte Absolute (ANC) 5.61 (1.4-6.9); Hematocrit 46.8 % (42-50); Hemoglobin 17.2 gm/dl (12.5-18.0); Mean Cell Volume 82.8 fl (78-100); Mean Corpuscular Hemoglobin 30.4 pg (26-32); Mean Corpuscular Hgb Concent. 36.8 g/dl (32-36); Mean Platelet Volume 9.9 fl (6-9.5); Platelet Count 309 K/mm3 (150-450); Red Blood Count 5.65 M/mm3 (4.1-5.6); Red Cell Distribution Width 12.9 % (11.5-14.0); White Blood Count 8.7 K/mm3 (4.0-10.5)
[2018-05-17] MEDS: Lantus Insulin SQ SCH (17:17)
[2018-05-17] MEDS: NovoLOG Insulin SQ PRN ×2 (17:17→22:10)
[2018-05-17 17:30] LABS: ANION GAP 19.7 MEQ/L (5-15); BLOOD UREA NITROGEN 15 mg/dL (9-20); CHLORIDE 95 mmol/L (98-107); Calcium 10.1 mg/dL (8.4-10.2); Carbon Dioxide 25 mmol/L (22-30); Creatinine 1 0.76 mg/dL (0.66-1.25); Glucose 461 mg/dL (74-106); Potassium 4.1 mmol/L (3.5-5.1); SODIUM 136 mmol/L (137-145)
[2018-05-17] MEDS: Zithromax 500 MG/ 250 ML NaCl Premix 500 MG/250 ML IVPB IV SCH (18:14)
[2018-05-17 18:28] LABS: Lymphocytes 27 % (24-44); Monocyte 1 % (0.0-12.0); Neutrophils 72 % (36.-66.); Platelet Estimate NORMAL (NORMAL); Total Cells Counted 100
[2018-05-17 18:36] LABS: INFLUENZA A NEGATIVE (NEGATIVE); INFLUENZA B NEGATIVE (NEGATIVE); RESPIRATORY SYNCTIAL VIRUS NEGATIVE (Negative)
[2018-05-17] MEDS: PROVENTIL 2.5 MG/3 ML NEB IH SCH ×2 (19:12→22:49)
[2018-05-17] MEDS: Advair Hfa 230/21 Mcg COMMON CANISTER IH SCH (19:12)
[2018-05-18] MEDS: PROVENTIL 2.5 MG/3 ML NEB IH SCH ×3 (03:13→10:50)
[2018-05-18] MEDS: Sodium Chloride 0.9% 1000 ML 1,000 ML IV SCH (05:28)
[2018-05-18] MEDS: Advair Hfa 230/21 Mcg COMMON CANISTER IH SCH (06:57)
[2018-05-18 07:31] VITALS: BP 139/85
[2018-05-18] MEDS: NovoLOG Insulin SQ PRN ×2 (07:45→12:23)
--- NOTE | 2018-05-18 08:28 | XRAY ---
Exam: Two-view chest from 05/17/2018. Comparison: AP upright portable chest film from 10/17/2017 and two-view chest from 10/15/2016. Indication: Bronchitis 3 weeks, cough, sinus drainage and congestion, shortness of breath, history of lung right lung cancer with partial right lung resection and removal of some right-sided lymph nodes. Findings: Upright PA and lateral chest films are submitted for evaluation. The heart size is normal. The winsome and mediastinal structures appear unremarkable. There is mild elevation of the anterior aspect of the right hemidiaphragm representing no change. Fine surgical sutures are seen coursing within the right midlung field and right lower lung field. I also note some mild focal interstitial scarring/fibrosis within the peripheral right lung base representing no change. There is a small calcified granuloma within the peripheral right midlung field. This can be seen on the CT exam of the chest from 06/21/2013 as well. The remainder of the lungs appears clear. No air space infiltrates to suggest focal pneumonia are seen. No vascular congestion, pneumothorax, or pleural fluid is seen. There is mild lower thoracic dextroscoliosis and moderate osteoarthritic spurring within the mid and lower thoracic spine. There is evidence of prior cholecystectomy. Impression: 1. Stable postoperative right lower lung field changes are seen with mild right basilar interstitial scarring/fibrosis. 2. No air space infiltrates to suggest focal pneumonia or other acute cardiopulmonary disease is seen. The chest findings are stable.
[2018-05-18] MEDS ORDERED: IMODIUM 2 MG PO SCH (10:00)
[2018-05-18] MEDS ORDERED: INSULIN GLARGINE HUM REC ANLOG 15 UNIT SQ SCH (10:00)
[2018-05-18] MEDS ORDERED: LOPERAMIDE HCL PO SCH (10:00)
[2018-05-18] MEDS: ROCEPHIN 1 Gm-D5w 50 ml Bag** 1 G/50 ML IVPB IV SCH (10:45)
[2018-05-18] MEDS: Lantus Insulin SQ SCH (10:51)
[2018-05-18] MEDS: Zithromax 500 MG/ 250 ML NaCl Premix 500 MG/250 ML IVPB IV SCH (11:24)
[2018-05-18] MEDS: Robitussin AC Syrup Unit Dose Cup PO PRN (11:41)
[2018-05-18 11:47] VITALS: PULSE 75; O2SAT 94
--- NOTE | 2018-05-18 11:50 | PCM.SSS ---
History of Present Illness - Chief Complaint Chief Complaint: c/o cough, fever and shortness of breath for 3 days History of Present Illness: is a 52 year old male.came to office with cough, chest congestion and shortness of breath. - Review of Systems Constitutional: No Fever, No Chills Eyes: No Symptoms Ears, Nose, & Throat: No Symptoms Respiratory: No Cough, No Short Of Breath Cardiac: No Chest Pain, No Edema, No Syncope Abdominal/Gastrointestinal: No Abdominal Pain, No Nausea, No Vomiting, No Diarrhea Genitourinary Symptoms: No Dysuria Musculoskeletal: No Back Pain, No Neck Pain Skin: No Rash Neurological: No Dizziness, No Focal Weakness, No Sensory Changes Psychological: No Symptoms Endocrine: No Symptoms Hematologic/Lymphatic: No Symptoms Immunological/Allergic: No Symptoms Medications & Allergies Home Medications: Home Medication List Fluticasone/Salmeterol 500/50* [Advair 500-50 Diskus] 1 each IH BID PRN 02/26 [History Confirmed 05/17/18] Hydrocodone/APAP 5/325 [[place] 5/325 mg] 1 tab PO Q6H PRN PRN 02/26/15 [ History Confirmed 05/17/18] Nebivolol HCl 5 MG [Bystolic 5 MG] 5 mg PO DAILY PRN PRN 02/26/15 [ History Confirmed 05/17/18] Loperamide HCl [Loperamide] 6 tab PO DAILY 10/31/15 [History Confirmed 05/17/18] Albuterol 2.5 mg/3 ml Neb [Proventil 2.5 mg/3 ml Neb] 2.5 mg IH TIDPRN PRN 10/15/16 [History Confirmed 05/17/18] Albuterol Sulfate [Proair Hfa] 8.5 gm IH QIDPRN PRN 10/15/16 [History Confirmed 05/17/18] Insulin Glargine,Hum.rec.anlog [Basaglar Kwikpen U-100] 15 units SQ DAILY [History Confirmed 05/17/18] Codeine Phosphate/Guaifenesin [Cheratussin AC Syrup] 5 ml PO QID #150 liquid [Rx] Allergies/Adverse Reactions: Allergies Allergy/AdvReac Type Severity Reaction Status Date / Time lisinopril Allergy Mild Anaphylactic Verified 05/17/18 16:06 Reaction naproxen AdvReac Mild Rash Verified 05/17/18 16:06 Iodinated Contrast- Oral and AdvReac Verified 05/17/18 16:07 IV Dye [Iodinated Contrast Media - IV Dye] - Past Medical History Past Medical History: Yes Neurological History: No Pertinent History ENT History: No Pertinent History Cardiac History: High Cholesterol, Hypertension Respiratory History: Asthma, Bronchitis, Lung Cancer Endocrine Medical History: Diabetes Type II Musculoskelatal History: Osteoarthritis GI Medical History: Gallbladder Disease, Irritable Bowel History: No Pertinent History Pyscho-Social History: No Pertinent History Male Reproductive Disorders: No Pertinent History Comment: Lung CA in remission. - Past Surgical History Past Surgical History: Yes Neuro Surgical History: No Pertinent History Cardiac History: No Pertinent History Respiratory Surgery: Lobectomy GI Surgical History: Cholecystectomy Genitourinary Surgical Hx: No Pertinent History Musculskeletal Surgical Hx: No Pertinent History Male Surgical History: No Pertinent History Other Surgical History: right side lymph nodes removed - Social History Smoking Status: Never smoker Exposure to second hand smoke: No Alcohol: None Drug Use: none Significant Family History: no pertinent family hx - Physical Exam Vital Signs: Vital Signs - 24 hr Temp Pulse Resp BP Pulse Ox 05/18/18 10:54 80 20 05/18/18 07:29 98.2 F 72 18 139/85 92 L 05/18/18 07:03 72 20 97 05/18/18 04:00 98.2 F 65 18 117/67 99 05/18/18 03:13 66 18 96 05/18/18 00:00 98.5 F 72 18 147/77 96 05/17/18 22:49 80 18 98 05/17/18 19:42 98.1 F 78 18 127/81 96 05/17/18 19:13 93 H 18 98 05/17/18 16:16 84 20 95 05/17/18 15:30 98.0 F 96 H 18 157/98 98 05/17/18 15:07 98.0 F 96 H 18 157/98 98 General Appearance: no apparent distress, alert Neurologic Exam: alert, oriented x 3, cooperative, normal mood/affect, nml cerebellar function, nml station & gait, sensation nml, No motor deficits Eye Exam: PERRL/EOMI, eyes nml inspection Ears, Nose, Throat Exam: normal ENT inspection, TMs normal, pharynx normal, moist mucous membranes Neck Exam: normal inspection, non-tender, supple, full range of motion Respiratory Exam: normal breath sounds, lungs clear, No respiratory distress Cardiovascular Exam: regular rate/rhythm, normal heart sounds, normal peripheral pulses Gastrointestinal/Abdomen Exam: soft, normal bowel sounds, No tenderness, No mass Back Exam: normal inspection, normal range of motion, No CVA tenderness, No vertebral tenderness Extremity Exam: normal inspection, normal range of motion, pelvis stable Skin Exam: normal color, warm, dry, No rash Lymphatic Exam: No adenopathy Results - Labs Lab/Micro Results: Accuchecks Date 05/17/18 Time 22:00 Accucheck Value: 310 Accucheck Value: 360 Lab Results-Last 24 Hours 05/17/18 05/17/18 05/17/18 Range/Units 17:03 17:03 17:03 WBC 8.7 (4.0-10.5) K/mm3 RBC 5.65 H (4.1-5.6) M/mm3 Hgb 17.2 (12.5-18.0) gm/dl Hct 46.8 (42-50) % MCV 82.8 (78-100) fl MCH 30.4 (26-32) pg MCHC 36.8 H (32-36) g/dl RDW 12.9 (11.5-14.0) % Plt Count 309 (150-450) K/mm3 MPV 9.9 H (6-9.5) fl Absolute Granulocytes 5.61 (1.4-6.9) Segmented Neutrophils 72 H (36.-66.) % Lymphocytes (Manual) 27 (24-44) % Monocytes (Manual) 1 (0.0-12.0) % Platelet Estimate NORMAL (NORMAL) RBC Morphology NORMAL Sodium 136 L (137-145) mmol/L Potassium 4.1 (3.5-5.1) mmol/L Chloride 95 L (98-107) mmol/L Carbon Dioxide 25 (22-30) mmol/L Anion Gap 19.7 H (5-15) MEQ/L BUN 15 (9-20) mg/dL Creatinine 0.76 (0.66-1.25) mg/dL Estimated GFR > 60.0 ML/MIN Glucose 461 H (74-106) mg/dL Hemoglobin A1c > 14.00 H (4.5-6.0) % Calcium 10.1 (8.4-10.2) mg/dL Influenza Type A Ag (NEGATIVE) Influenza Type B Ag (NEGATIVE) RSV (PCR) (Negative) 05/17/18 Range/Units 17:16 WBC (4.0-10.5) K/mm3 RBC (4.1-5.6) M/mm3 Hgb (12.5-18.0) gm/dl Hct (42-50) % MCV (78-100) fl MCH (26-32) pg MCHC (32-36) g/dl RDW (11.5-14.0) % Plt Count (150-450) K/mm3 MPV (6-9.5) fl Absolute Granulocytes (1.4-6.9) Segmented Neutrophils (36.-66.) % Lymphocytes (Manual) (24-44) % Monocytes (Manual) (0.0-12.0) % Platelet Estimate (NORMAL) RBC Morphology Sodium (137-145) mmol/L Potassium (3.5-5.1) mmol/L Chloride (98-107) mmol/L Carbon Dioxide (22-30) mmol/L Anion Gap (5-15) MEQ/L BUN (9-20) mg/dL Creatinine (0.66-1.25) mg/dL Estimated GFR ML/MIN Glucose (74-106) mg/dL Hemoglobin A1c (4.5-6.0) % Calcium (8.4-10.2) mg/dL Influenza Type A Ag NEGATIVE (NEGATIVE) Influenza Type B Ag NEGATIVE (NEGATIVE) RSV (PCR) NEGATIVE (Negative) Accuchecks Date 05/17/18 Time 22:00 Accucheck Value: 310 Accucheck Value: 360 - Radiology Impressions Radiology Exams & Impressions: Radiology Procedures Category Date Time Status CHEST 2 VIEWS (PA AND LAT) Stat Exams 05/17/18 16:31 Completed - Other Procedures and Tests Respiratory Therapy 05/17/18 16:00 Peak Expiratory Flow Rate ONCE Respiratory Therapy Assessment DAILY Assessment/Plan (1) Viral bronchitis Current Visit: Yes Status: Acute Assessment & Plan: Chief Complaint Diagnosis Bronchitis Allergies Allergy/AdvReac Type Severity Reaction Status Date / Time lisinopril Allergy Mild Anaphylactic Verified 05/17/18 16:06 Reaction naproxen AdvReac Mild Rash Verified 05/17/18 16:06 Iodinated Contrast- Oral and AdvReac Verified 05/17/18 16:07 IV Dye [Iodinated Contrast Media - IV Dye] Vital Signs (Last 24 hours) Temp Pulse Resp BP Pulse Ox 05/18/18 11:47 98.5 F 75 18 139/85 94 L 05/18/18 10:54 80 20 05/18/18 07:29 98.2 F 72 18 139/85 92 L 05/18/18 07:03 72 20 97 05/18/18 04:00 98.2 F 65 18 117/67 99 05/18/18 03:13 66 18 96 05/18/18 00:00 98.5 F 72 18 147/77 96 05/17/18 22:49 80 18 98 05/17/18 19:42 98.1 F 78 18 127/81 96 05/17/18 19:13 93 H 18 98 05/17/18 16:16 84 20 95 05/17/18 15:30 98.0 F 96 H 18 157/98 98 05/17/18 15:07 98.0 F 96 H 18 157/98 98 Home Medications Medication Instructions Recorded Confirmed Last Taken Type Insulin Glargine,Hum.rec.anlog 15 units SQ DAILY 05/17/18 05/17/18 04/17/18 History [Basaglar [place] U-100] Current Medications Generic Name Dose Route Start Last Admin Trade Name Freq PRN Reason Stop Dose Admin Hydrocodone Bitart/Acetaminophen 1 tab 05/17/18 16:39 [place] 5/325 Mg PO 05/22/18 16:38 Q6H PRN PRN pain Albuterol Sulfate 2.5 mg 05/17/18 19:00 05/18/18 10:50 Proventil 2.5 Mg/3 Ml Neb IH 06/16/18 18:59 2.5 mg Q4HRT LEONIE Administration Albuterol Sulfate 2.5 mg 05/17/18 16:12 05/17/18 16:14 Proventil 2.5 Mg/3 Ml Neb IH 06/16/18 16:11 2.5 mg Q2H PRN PRN Administration SHORTNESS OF BREATH/WHEEZING Guaifenesin/Codeine Phosphate 5 ml 05/17/18 16:30 05/18/18 11:41 Robitussin Ac Syrup Unit Dose Cup PO 06/16/18 16:29 5 ml Q4H PRN PRN Administration COUGH Ceftriaxone Sodium/Dextrose 1 g in 50 mls @ 100 mls/hr 05/17/18 17:00 10:45 Rocephin 1 Gm-D5w 50 Ml Bag IV 06/16/18 16:59 100 mls/hr Q24H10 LEONIE Administration Azithromycin 500 mg in 250 mls @ 125 mls/hr 05/17/18 17:00 05/18/18 11:24 Zithromax 500 Mg/ 250 Ml Nacl Premix IV 06/16/18 16:59 125 mls/hr DAILY LEONIE Administration Sodium Chloride 1,000 mls @ 100 mls/hr 05/17/18 16:45 05/18/18 05:28 Sodium Chloride 0.9% 1000 Ml IV 06/16/18 16:44 100 mls/hr .Q10H LEONIE Administration Insulin Aspart 0 unit 05/17/18 16:52 05/18/18 07:45 Novolog Insulin SQ 06/16/18 16:51 12 unit UD PRN Administration HYPERGLYCEMIA Insulin Glargine 15 unit 05/17/18 17:00 05/18/18 10:51 Lantus Insulin SQ 06/16/18 16:59 15 unit DAILY LEONIE Administration Loperamide HCl 12 mg 05/18/18 10:00 05/18/18 10:44 Imodium 2 Mg PO 06/17/18 09:59 12 mg DAILY LEONIE Administration Nebivolol 5 mg 05/17/18 16:39 Bystolic 5 Mg PO 06/16/18 16:38 DAILY PRN PRN HYPERTENSION Fluticasone/Salmeterol 2 puff 05/17/18 19:00 05/18/18 06:57 Advair Hfa 230/21 Mcg Common Canister* IH 06/16/18 18:59 2 puff BIDRT LEONIE Administration Intake & Output (Last 24 hours) 05/15/18 05/16/18 05/17/18 05/18/18 11:59 11:59 11:59 11:59 Intake Total 2621 Output Total 450 Balance 2171 Weight 76.1 kg Microbiology Results (Last 24 hours) 05/17/18 17:03 Blood Blood Culture Gram Stain - Pending 05/17/18 17:03 Blood Blood Culture - Pending 05/17/18 17:03 Blood Blood Culture Gram Stain - Pending 05/17/18 17:03 Blood Blood Culture - Pending Laboratory Results (Last 24 hours) 05/17/18 05/17/18 05/17/18 17:16 17:03 17:03 WBC RBC Hgb Hct MCV MCH MCHC RDW Plt Count MPV Absolute Granulocytes Segmented Neutrophils Lymphocytes (Manual) Monocytes (Manual) Platelet Estimate RBC Morphology Sodium 136 L Potassium 4.1 Chloride 95 L Carbon Dioxide 25 Anion Gap 19.7 H BUN 15 Creatinine 0.76 Estimated GFR > 60.0 Glucose 461 H Hemoglobin A1c > 14.00 H Calcium 10.1 Influenza Type A Ag NEGATIVE Influenza Type B Ag NEGATIVE RSV (PCR) NEGATIVE 05/17/18 17:03 WBC 8.7 RBC 5.65 H Hgb 17.2 Hct 46.8 MCV 82.8 MCH 30.4 MCHC 36.8 H RDW 12.9 Plt Count 309 MPV 9.9 H Absolute Granulocytes 5.61 Segmented Neutrophils 72 H Lymphocytes (Manual) 27 Monocytes (Manual) 1 Platelet Estimate NORMAL RBC Morphology NORMAL Sodium Potassium Chloride Carbon Dioxide Anion Gap BUN Creatinine Estimated GFR Glucose Hemoglobin A1c Calcium Influenza Type A Ag Influenza Type B Ag RSV (PCR) Orders (Last 24 hours) Category Date Time Status Up Ad Silvia ROUTINE Activity 05/17/18 16:30 Active ACCUCHECK [Accucheck] ACHS Care 05/17/18 16:47 Active Code Status Order ROUTINE Care 05/17/18 16:30 Active IV Insertion ROUTINE Care 05/17/18 16:31 Completed Implement Pneumonia Pathway ROUTINE Care 05/17/18 16:[address] in Observation ROUTINE Care 05/17/18 16:30 Active Vital Signs Q4H Care 05/17/18 16:30 Active Nutritional Admission Screen Diet 05/17/18 16:02 Active Nutritional Admission Screen Diet 05/17/18 16:33 Active Regular Diet Diet 05/17/18 Dinner Active CHEST 2 VIEWS (PA AND LAT) Stat Exams 05/17/18 16:31 Completed BLOOD CULTURE Stat Lab 05/17/18 17:03 Received BMP Stat Lab 05/17/18 17:03 Completed CBC W DIFF Stat Lab 05/17/18 17:03 Completed HEMOGLOBIN A1C Urgent Lab 05/17/18 17:03 Completed Manual Differential NC Stat Lab 05/17/18 17:03 Completed Respiratory Panel Routine Lab 05/17/18 17:16 Completed Albuterol 2.5 mg/3 ml Neb [Proventil 2.5 mg/3 ml Neb Med 05/17/18 16:12 Active ] 2.5 mg IH Q2H PRN PRN Albuterol 2.5 mg/3 ml Neb [Proventil 2.5 mg/3 ml Neb Med 05/17/18 19:00 Active ] 2.5 mg IH Q4HRT Azithromycin 500 mg/250 ml [Zithromax 500 MG/ 250 ML Med 05/17/18 17:00 Active NaCl Premix] 500 mg in 250 ml IV DAILY Ceftriaxone 1 GM/50 ML PREMIX* [ROCEPHIN 1 Gm-D5w 50 ml Med 05/17/18 17:00 Active Bag] 1 g in 50 ml IV Q24H10 Fluticasone/Salmeterol 230/21 [Advair Hfa 230/21 Mcg Med 05/17/18 19:00 Active COMMON CANISTER*] 2 puff IH BIDRT Guaifenesin/Codeine 5 ml [Robitussin AC Syrup Unit Med 05/17/18 16:30 Active Dose Cup] 5 ml PO Q4H PRN PRN Hydrocodone/APAP 5/325 [[place] 5/325 mg] Med 05/17/18 16:39 Active 1 tab PO Q6H PRN PRN Insulin Aspart [NovoLOG Insulin] Med 05/17/18 16:52 Active See Dose Instructions SQ UD PRN Insulin Glargine [Lantus Insulin] Med 05/17/18 17:00 Active 15 unit SQ DAILY Loperamide HCl 2 mg [Imodium 2 mg] Med 05/18/18 10:00 Active 12 mg PO DAILY NaCl 0.9% 1000 ml [Sodium Chloride 0.9% 1000 ML] 1,000 Med 05/17/18 16:45 Active ml IV 100 mls/hr Nebivolol HCl 5 MG [Bystolic 5 MG] Med 05/17/18 16:39 Active 5 mg PO DAILY PRN PRN Peak Expiratory Flow Rate ONCE RT 05/17/18 16:00 Active Pulse Oximetry .spot check RT 05/17/18 16:00 Active RT Screen per Nursing Assess ONCE RT 05/17/18 16:02 Completed Respiratory MDI BID RT 05/17/18 19:00 Completed Respiratory Nebulizer Q4H RT 05/17/18 19:00 Completed Respiratory Therapy Assessment DAILY RT 05/17/18 16:00 Active Respiratory Therapy Consult ROUTINE RT 05/17/18 16:30 Completed Respiratory Therapy Consult ROUTINE RT 05/17/18 16:31 Completed Code(s): J20.8 - ACUTE BRONCHITIS DUE TO OTHER SPECIFIED ORGANISMS Hospital Summary - Hospital Course Hospital Course: Last Vital Signs Temp 98.5 F 05/18/18 11:47 Pulse 75 05/18/18 11:47 Resp 18 05/18/18 11:47 BP 139/85 05/18/18 11:47 Pulse Ox 94 L 05/18/18 11:47 Allergies lisinopril Allergy (Mild, Verified 05/17/18 16:06) Anaphylactic Reaction naproxen Adverse Reaction (Mild, Verified 05/17/18 16:06) Rash Iodinated Contrast- Oral and IV Dye [Iodinated Contrast Media - IV Dye] Adverse Reaction (Verified 05/17/18 16:07) Pt states unsure if he is really allergic to contrast Active Medications Hydrocodone Bitart/Acetaminophen ([place] 5/325 Mg) 1 tab PO Q6H PRN PRN PRN Reason: pain Stop: 05/22/18 16:38 Albuterol Sulfate (Proventil 2.5 Mg/3 Ml Neb) 2.5 mg IH Q4HRT LEONIE Stop: 06/16/18 18:59 Last Admin: 05/18/18 10:50 Dose: 2.5 mg Albuterol Sulfate (Proventil 2.5 Mg/3 Ml Neb) 2.5 mg IH Q2H PRN PRN PRN Reason: SHORTNESS OF BREATH/WHEEZING Stop: 06/16/18 16:11 Last Admin: 05/17/18 16:14 Dose: 2.5 mg Guaifenesin/Codeine Phosphate (Robitussin Ac Syrup Unit Dose Cup) 5 ml PO Q4H PRN PRN PRN Reason: COUGH Stop: 06/16/18 16:29 Last Admin: 05/18/18 11:41 Dose: 5 ml Ceftriaxone Sodium/Dextrose (Rocephin 1 Gm-D5w 50 Ml Bag) 1 g in 50 mls @ 100 mls/hr IV Q24H10 [facility] Stop: 06/16/18 16:59 Last Admin: 05/18/18 10:45 Dose: 100 mls/hr Azithromycin (Zithromax 500 Mg/ 250 Ml Nacl Premix) 500 mg in 250 mls @ 125 mls /hr IV DAILY [facility] Stop: 06/16/18 16:59 Last Admin: 05/18/18 11:24 Dose: 125 mls/hr Sodium Chloride (Sodium Chloride 0.9% 1000 Ml) 1,000 mls @ 100 mls/hr IV .Q10H [facility] Stop: 06/16/18 16:44 Last Admin: 05/18/18 05:28 Dose: 100 mls/hr Insulin Aspart (Novolog Insulin) 0 unit SQ UD PRN PRN Reason: HYPERGLYCEMIA Stop: 06/16/18 16:51 Last Admin: 05/18/18 07:45 Dose: 12 unit Insulin Glargine (Lantus Insulin) 15 unit SQ DAILY [facility] Stop: 06/16/18 16:59 Last Admin: 05/18/18 10:51 Dose: 15 unit Loperamide HCl (Imodium 2 Mg) 12 mg PO DAILY [facility] Stop: 06/17/18 09:59 Last Admin: 05/18/18 10:44 Dose: 12 mg Nebivolol (Bystolic 5 Mg) 5 mg PO DAILY PRN PRN PRN Reason: HYPERTENSION Stop: 06/16/18 16:38 Fluticasone/Salmeterol (Advair Hfa 230/21 Mcg Common Canister*) 2 puff IH BIDRT [facility] Stop: 06/16/18 18:59 Last Admin: 05/18/18 06:57 Dose: 2 puff Intake & Output 05/17/18 05/18/18 11:59 11:59 Intake Total 2621 Output Total 450 Balance 2171 Weight 76.1 kg Orders 05/17/18 16:00 Peak Expiratory Flow Rate ONCE Pulse Oximetry .spot check Respiratory Therapy Assessment DAILY 05/17/18 16:02 Nutritional Admission Screen 05/17/18 16:12 Albuterol 2.5 mg/3 ml Neb [Proventil 2.5 mg/3 ml Neb] 2.5 mg IH Q2H PRN PRN 05/17/18 16:30 Up Ad Silvia ROUTINE Code Status Order ROUTINE Place in Observation ROUTINE Vital Signs Q4H Guaifenesin/Codeine 5 ml [Robitussin AC Syrup Unit Dose Cup] 5 ml PO Q4H PRN PRN 05/17/18 16:31 Implement Pneumonia Pathway ROUTINE 05/17/18 16:33 Nutritional Admission Screen 05/17/18 16:39 Hydrocodone/APAP 5/325 [[place] 5/325 mg] 1 tab PO Q6H PRN PRN Nebivolol HCl 5 MG [Bystolic 5 MG] 5 mg PO DAILY PRN PRN 05/17/18 16:45 NaCl 0.9% 1000 ml [Sodium Chloride 0.9% 1000 ML] 1,000 ml IV 100 mls/hr 05/17/18 16:47 ACCUCHECK [Accucheck] ACHS 05/17/18 16:52 Insulin Aspart [NovoLOG Insulin] See Dose Instructions SQ UD PRN 05/17/18 17:00 Azithromycin 500 mg/250 ml [Zithromax 500 MG/ 250 ML NaCl Premix] 500 mg in 250 ml IV DAILY Ceftriaxone 1 GM/50 ML PREMIX* [ROCEPHIN 1 Gm-D5w 50 ml Bag] 1 g in 50 ml IV Q24H10 Insulin Glargine [Lantus Insulin] 15 unit SQ DAILY 05/17/18 17:03 BLOOD CULTURE Stat 05/17/18 19:00 Albuterol 2.5 mg/3 ml Neb [Proventil 2.5 mg/3 ml Neb] 2.5 mg IH Q4HRT Fluticasone/Salmeterol 230/21 [Advair Hfa 230/21 Mcg COMMON CANISTER*] 2 puff IH BIDRT 05/17/18 Dinner Regular Diet 05/18/18 10:00 Loperamide HCl 2 mg [Imodium 2 mg] 12 mg PO DAILY Lab Tests 05/17/18 05/17/18 05/17/18 17:03 17:03 17:03 WBC 8.7 RBC 5.65 H Hgb 17.2 Hct 46.8 MCV 82.8 MCH 30.4 MCHC 36.8 H RDW 12.9 Plt Count 309 MPV 9.9 H Absolute Granulocytes 5.61 Segmented Neutrophils 72 H Lymphocytes (Manual) 27 Monocytes (Manual) 1 Platelet Estimate NORMAL RBC Morphology NORMAL Sodium 136 L Potassium 4.1 Chloride 95 L Carbon Dioxide 25 Anion Gap 19.7 H BUN 15 Creatinine 0.76 Estimated GFR > 60.0 Glucose 461 H Hemoglobin A1c > 14.00 H Calcium 10.1 Influenza Type A Ag Influenza Type B Ag RSV (PCR) 05/17/18 17:16 WBC RBC Hgb Hct MCV MCH MCHC RDW Plt Count MPV Absolute Granulocytes Segmented Neutrophils Lymphocytes (Manual) Monocytes (Manual) Platelet Estimate RBC Morphology Sodium Potassium Chloride Carbon Dioxide Anion Gap BUN Creatinine Estimated GFR Glucose Hemoglobin A1c Calcium Influenza Type A Ag NEGATIVE Influenza Type B Ag NEGATIVE RSV (PCR) NEGATIVE - Vitals & Intake/Output Vital Signs: Vital Signs Temperature 98.2 F 05/18/18 07:29 Pulse Rate 80 05/18/18 10:54 Respiratory Rate 20 05/18/18 10:54 Blood Pressure 139/85 05/18/18 07:29 O2 Sat by Pulse Oximetry 92 L 05/18/18 07:29 Intake & Output: Intake & Output 05/15/18 05/16/18 05/17/18 05/18/18 11:59 11:59 11:59 11:59 Intake Total 2621 Output Total 450 Balance 2171 Weight 76.1 kg - Lab Result Diagrams: 05/17/18 17:03 05/17/18 17:03 Lab Results-Last 24 Hrs: Accuchecks Date 05/17/18 Time 22:00 Accucheck Value: 310 Accucheck Value: 360 Lab Results-Last 24 Hours 05/17/18 05/17/18 05/17/18 Range/Units 17:03 17:03 17:03 WBC 8.7 (4.0-10.5) K/mm3 RBC 5.65 H (4.1-5.6) M/mm3 Hgb 17.2 (12.5-18.0) gm/dl Hct 46.8 (42-50) % MCV 82.8 (78-100) fl MCH 30.4 (26-32) pg MCHC 36.8 H (32-36) g/dl RDW 12.9 (11.5-14.0) % Plt Count 309 (150-450) K/mm3 MPV 9.9 H (6-9.5) fl Absolute Granulocytes 5.61 (1.4-6.9) Segmented Neutrophils 72 H (36.-66.) % Lymphocytes (Manual) 27 (24-44) % Monocytes (Manual) 1 (0.0-12.0) % Platelet Estimate NORMAL (NORMAL) RBC Morphology NORMAL Sodium 136 L (137-145) mmol/L Potassium 4.1 (3.5-5.1) mmol/L Chloride 95 L (98-107) mmol/L Carbon Dioxide 25 (22-30) mmol/L Anion Gap 19.7 H (5-15) MEQ/L BUN 15 (9-20) mg/dL Creatinine 0.76 (0.66-1.25) mg/dL Estimated GFR > 60.0 ML/MIN Glucose 461 H (74-106) mg/dL Hemoglobin A1c > 14.00 H (4.5-6.0) % Calcium 10.1 (8.4-10.2) mg/dL Influenza Type A Ag (NEGATIVE) Influenza Type B Ag (NEGATIVE) RSV (PCR) (Negative) 05/17/18 Range/Units 17:16 WBC (4.0-10.5) K/mm3 RBC (4.1-5.6) M/mm3 Hgb (12.5-18.0) gm/dl Hct (42-50) % MCV (78-100) fl MCH (26-32) pg MCHC (32-36) g/dl RDW (11.5-14.0) % Plt Count (150-450) K/mm3 MPV (6-9.5) fl Absolute Granulocytes (1.4-6.9) Segmented Neutrophils (36.-66.) % Lymphocytes (Manual) (24-44) % Monocytes (Manual) (0.0-12.0) % Platelet Estimate (NORMAL) RBC Morphology Sodium (137-145) mmol/L Potassium (3.5-5.1) mmol/L Chloride (98-107) mmol/L Carbon Dioxide (22-30) mmol/L Anion Gap (5-15) MEQ/L BUN (9-20) mg/dL Creatinine (0.66-1.25) mg/dL Estimated GFR ML/MIN Glucose (74-106) mg/dL Hemoglobin A1c (4.5-6.0) % Calcium (8.4-10.2) mg/dL Influenza Type A Ag NEGATIVE (NEGATIVE) Influenza Type B Ag NEGATIVE (NEGATIVE) RSV (PCR) NEGATIVE (Negative) Micro Results-Entire Visit: Accuchecks Date 05/17/18 Time 22:00 Accucheck Value: 310 Accucheck Value: 360 - Radiology Exams Ordered Rad Exams-Entire Visit: Radiology Procedures Category Date Time Status CHEST 2 VIEWS (PA AND LAT) Stat Exams 05/17/18 16:31 Completed - Procedures and Test Procedures and Tests throughout Hospitalization: Therapy Orders & Screens 05/17/18 16:00 Peak Expiratory Flow Rate ONCE Comment: Reason For Exam: Diagnosis: Bronchitis Respiratory Therapy Assessment DAILY Comment: Diagnosis: Bronchitis 05/17/18 16:02 RT Screen per Nursing Assess ONCE Comment: Protocol Order Physician Instructions: Greater than 3 points order RT Admission Screen Reason For Exam: Triggered on Admission Diagnosis: Bronchitis Diagnosis: Bronchitis Pneumonia: No Home O2: No Asthma: Yes CHF: No Home CPAP/BIPAP: No Home Nebs/MDI: Yes Total Points: 9 05/17/18 16:30 Respiratory Therapy Consult ROUTINE Comment: Reason For Exam: Diagnosis: Bronchitis 05/17/18 16:31 Respiratory Therapy Consult ROUTINE Comment: Reason For Exam: Diagnosis: Bronchitis 05/17/18 19:00 Respiratory MDI BID Comment: Diagnosis: Bronchitis Respiratory Nebulizer Q4H Comment: Diagnosis: Bronchitis - Discharge Discharge Date: 05/18/18 Disposition: Home, Self-Care Condition: Stable Prescriptions: New Codeine Phosphate/Guaifenesin [Cheratussin AC Syrup] 5 ml PO QID #150 liquid Continue Nebivolol HCl 5 MG [Bystolic 5 MG] 5 mg PO DAILY PRN PRN PRN Reason: Hypertension Fluticasone/Salmeterol 500/50* [Advair 500-50 Diskus] 1 each IH BID PRN PRN Reason: asthma Hydrocodone/APAP 5/325 [[place] 5/325 mg] 1 tab PO Q6H PRN PRN PRN Reason: pain Loperamide HCl [Loperamide] 6 tab PO DAILY Albuterol Sulfate [Proair Hfa] 8.5 gm IH QIDPRN PRN PRN Reason: sob Albuterol 2.5 mg/3 ml Neb [Proventil 2.5 mg/3 ml Neb] 2.5 mg IH TIDPRN PRN PRN Reason: sob Insulin Glargine,Hum.rec.anlog [Joshaglfiona Oglesbyikpen U-100] 15 units SQ DAILY Follow up with: HARRISON VENTURA MD [Primary Care Provider] - 05/25/18 10:45 am ([facility])
== END 2018-05-18 14:40 | disposition home or self-care (01) ==
LOC: MED SURG 14:46
PROVIDERS: ADMIT General Practice; ATTEND General Practice
DX: J20.8 Acute bronchitis due to other specified organisms (principal); I10 Essential (primary) hypertension; E78.00 Pure hypercholesterolemia, unspecified; J45.909 Unspecified asthma, uncomplicated; Z85.118 Personal history of other malignant neoplasm of bronchus and lung; M19.90 Unspecified osteoarthritis, unspecified site; E11.9 Type 2 diabetes mellitus without complications; Z79.4 Long term (current) use of insulin; K58.9 Irritable bowel syndrome, unspecified; Z79.899 Other long term (current) drug therapy
CPT/HCPCS: 36415; 71046; 80048; 82962; 83036; 85025; 87040; 87631; 94150; 94640; 94760; G0378; J7609; J0456; J0696; A9270-GY

== ENCOUNTER 2020-07-22 23:44 | Observation (INO) | payer BC ==
[2020-07-23] MEDS ORDERED: VENTOLIN COMMON CANISTER IH PRN (00:07)
[2020-07-23] MEDS ORDERED: Decadron 4 MG PO STA (00:07)
--- NOTE | 2020-07-23 00:10 | ERPHSYRPT ---
- History of Present Illness Time Seen by Provider: 07/23/20 00:00 Source: patient, EMS Exam Limitations: no limitations Physician History: The patient is a 54-year-old male with a past medical history significant for COPD/asthma, lung cancer for which he is currently in remission and what was reported to be a partial lobectomy, and who recently tested positive for COVID- 19 on July 12, 2020 presents with a chief complaint of shortness of breath. Onset reportedly was around the 10th of this month. He is also endorsed having a cough that is been nonproductive. Your shortness of breath reportedly got worse this evening prompting him to call EMS to have been transported to the emergency department for further evaluation and management. The patient reportedly just finished a course of azithromycin and what sounds like p.o. steroids. The steroids finished a couple days ago according the patient. He denies chest pain, history of PE or DVT, diarrhea. He reportedly felt nauseous and had an episode of vomiting today. There is no reported fever. He does not use supplemental oxygen at home. EMS reports that the patient's room air oxygen saturations on the scene were 87 to 89% for which they administered supplemental oxygen via nasal cannula prior to arrival. Associated Symptoms: nausea, vomiting, shortness of breath, cough, No chest pain, No fever Allergies/Adverse Reactions: lisinopril Allergy (Mild, Verified 07/23/20 00:14) Anaphylactic Reaction naproxen Adverse Reaction (Mild, Verified 07/23/20 00:14) Rash Home Medications: Fluticasone/Salmeterol 500/50* [Advair 500-50 Diskus] 1 each IH BID PRN 02/26/15 [History] Hydrocodone/APAP 5/325 [[place] 5/325 mg] 1 tab PO Q6H PRN PRN 02/26/15 [History] Nebivolol HCl 5 MG [Bystolic 5 MG] 5 mg PO DAILY PRN PRN 02/26/15 [History] Loperamide HCl [Loperamide] 6 tab PO DAILY 10/31/15 [History] Albuterol 2.5 mg/3 ml Neb [Proventil 2.5 mg/3 ml Neb] 2.5 mg IH TIDPRN PRN 10/15/16 [History] Albuterol Sulfate [Proair Hfa] 8.5 gm IH QIDPRN PRN 10/15/16 [History] Insulin Glargine,Hum.rec.anlog [Basaglar Kwikpen U-100] 15 units SQ DAILY 05/17/18 [History] Hx Tetanus, Diphtheria Vaccination/Date Given: Yes Hx Influenza Vaccination/Date Given: Yes Hx Pneumococcal Vaccination/Date Given: No - Review of Systems Constitutional: No Symptoms, Chills, Fatigue, No Fever Eyes: No Symptoms Ears, Nose, & Throat: No Symptoms Respiratory: Cough, Dyspnea, Wheezing Cardiac: No Chest Pain, No Palpitations, No Syncope Abdominal/Gastrointestinal: Nausea, Vomiting, No Abdominal Pain Genitourinary Symptoms: No Symptoms Musculoskeletal: No Symptoms Skin: No Symptoms Neurological: No Symptoms Psychological: No Symptoms Endocrine: No Symptoms Hematologic/Lymphatic: No Symptoms Immunological/Allergic: No Symptoms - Past Medical History Pertinent Past Medical History: Yes Neurological History: No Pertinent History ENT History: No Pertinent History Cardiac History: High Cholesterol, Hypertension Respiratory History: Asthma, Bronchitis, Lung Cancer Endocrine Medical History: Diabetes Type II Musculoskeletal History: Osteoarthritis GI Medical History: Gallbladder Disease, Irritable Bowel History: No Pertinent History Psycho-Social History: No Pertinent History Male Reproductive Disorders: No Pertinent History Other Medical History: Lung CA in remission. - Past Surgical History Past Surgical History: Yes Neuro Surgical History: No Pertinent History Cardiac: No Pertinent History Respiratory: Lobectomy Gastrointestinal: Cholecystectomy Genitourinary: No Pertinent History Musculoskeletal: No Pertinent History Male Surgical History: No Pertinent History Other Surgical History: right side lymph nodes removed - Social History Smoking Status: Never smoker Exposure to second hand smoke: No Drug Use: none Patient Lives Alone: No Significant Family History: no pertinent family hx - Nursing Vital Signs Nursing Vital Signs: Initial Vital Signs Temperature 100.8 F 07/23/20 00:24 Pulse Rate 109 H 07/23/20 00:24 Respiratory Rate 26 H 07/23/20 00:24 Blood Pressure 197/116 07/23/20 00:24 O2 Sat by Pulse Oximetry 93 L 07/23/20 00:24 Pain Scale Pain Intensity 0 - Physical Exam General Appearance: no apparent distress, alert Eye Exam: PERRL/EOMI, eyes nml inspection Ears, Nose, Throat Exam: normal ENT inspection Neck Exam: normal inspection, non-tender, supple Respiratory Exam: wheezing (Fine scattered intermittent expiratory wheezing when auscultating posteriorly), other (The patient was able to speak in full sentences and appeared to be comfortabley tachypneic.), No chest tenderness, No respiratory distress Cardiovascular Exam: normal peripheral pulses, capillary refill <2 sec, other (Tachycardia), No murmur, No friction rub, No gallop Gastrointestinal/Abdomen Exam: soft Back Exam: normal inspection Extremity Exam: normal inspection Neurologic Exam: alert, oriented x 3, cooperative Skin Exam: normal color, warm, dry, other (Skin is hot to touch), No rash, No petechiae SpO2 Interpretation: normal O2 Delivery: Nasal Cannula - Course Nursing assessment & vital signs reviewed: Yes EKG Interpreted by Me: RATE, Sinus Tach, Right Bundle Branch Block, NORMAL ST-T, Other (No evidence of STEMI) - CT Exams Chest CT Interpretation: Tele-radiologist Report (Patchy groundglass nodular opacities in the lung suspicious for pneumonitis. No evidence of pulmonary embolus.) Ordered Tests: Active Orders 24 hr Category Date Time Status Up Ad Silvia ROUTINE Activity 07/23/20 02:07 Active Supervisor Shuttle Fitting STAT Care 07/23/20 00:06 Active Code Status Order ROUTINE Care 07/23/20 02:06 Active EKG-ER Only STAT Care 07/23/20 00:03 Active IV Care Q6H Care 07/23/20 02:04 Active IV Insertion STAT Care 07/23/20 00:03 Active Isolation, Initiate & Maintain Q6H Care 07/23/20 02:[address] in Observation ROUTINE Care 07/23/20 02:05 Active Consistent Carbohydrate Diet 1800 Calorie Diet 07/23/20 Breakfast Active CHEST WITH CONTRAST [CT] Stat Exams 07/23/20 00:05 Ordered ABG [ARTERIAL BLOOD GASES] Stat Lab 07/23/20 01:17 Completed BMP Stat Lab 07/23/20 00:25 Completed CBC W DIFF Stat Lab 07/23/20 00:25 Completed Manual Differential NC Stat Lab 07/23/20 00:25 Completed NT PRO BNP Stat Lab 07/23/20 00:25 Completed TROPONIN Stat Lab 07/23/20 00:25 Completed Pulse Oximetry ROUTINE RT 07/23/20 02:04 Active Respiratory Therapy Assessment DAILY RT 07/23/20 00:33 Active Respiratory Therapy Consult ROUTINE RT 07/23/20 02:04 Active Medication Summary Generic Name Dose Route Start Last Admin Trade Name Rosalba PRN Reason Stop Dose Admin Acetaminophen 650 mg 07/23/20 02:04 Tylenol 325 Mg PO 08/22/20 02:03 Q4H PRN PRN PAIN AND/OR FEVER Albuterol Sulfate 4 puff 07/23/20 00:07 07/23/20 00:33 Ventolin Common Canister IH 08/22/20 00:06 4 puff Q4H PRN PRN Administration SHORTNESS OF BREATH/WHEEZING Albuterol Sulfate 4 puff 07/23/20 02:04 Ventolin Common Canister IH 08/22/20 02:03 Q4H PRN PRN SHORTNESS OF BREATH/WHEEZING Enoxaparin Sodium 40 mg 07/23/20 10:00 Enoxaparin Sodium SQ 08/22/20 09:59 DAILY LEONIE Famotidine 20 mg 07/23/20 10:00 Pepcid 20 Mg Vial IV 08/22/20 09:59 Q12HT LEONIE Discontinued Medications Generic Name Dose Route Start Last Admin Trade Name Rosalba PRN Reason Stop Dose Admin Acetaminophen 1,000 mg 07/23/20 00:36 07/23/20 00:38 Tylenol Extra Strength 500 Mg PO 07/23/20 00:37 1,000 mg STAT STA Administration Acetaminophen Confirm 07/23/20 00:35 Tylenol Extra Strength 500 Mg Administered 07/23/20 00:36 Dose 1,000 mg .ROUTE .STK-MED ONE Dexamethasone 6 mg 07/23/20 00:07 07/23/20 00:22 Decadron 4 Mg PO 07/23/20 00:08 6 mg STAT STA Administration Sodium Chloride 1,000 mls @ 999 mls/hr 07/23/20 01:22 07/23/20 02:01 Sodium Chloride 0.9% 1000 Ml IV 07/23/20 02:22 999 mls/hr .Q1H1M STA Administration Sodium Chloride Confirm 07/23/20 02:00 Sodium Chloride 0.9% 1000 Ml Administered 07/23/20 02:01 Dose 1,000 mls @ ud .ROUTE .STK-MED ONE Insulin Human Lispro 20 unit 07/23/20 01:18 07/23/20 02:00 Humalog SQ 07/23/20 01:19 20 unit STAT ONE Administration Insulin Human Lispro Confirm 07/23/20 02:00 Humalog Administered 07/23/20 02:01 Dose 20 unit .ROUTE .[facility]-MED ONE Lab/Rad Data: Laboratory Result Diagrams 07/23/20 00:25 07/23/20 00:25 Laboratory Results 07/23/20 07/23/20 07/23/20 Range/Units 01:17 00:25 00:25 WBC 10.7 H (4.0-10.5) K/mm3 RBC 5.20 (4.1-5.6) M/mm3 Hgb 15.5 (12.5-18.0) gm/dl Hct 43.7 (42-50) % MCV 84.0 (78-100) fl MCH 29.8 (26-32) pg MCHC 35.5 (32-36) g/dl RDW 12.6 (11.5-14.0) % Plt Count 262 (150-450) K/mm3 MPV 9.9 (7.5-11.0) fl Segmented Neutrophils 78 H (36.-66.) % Lymphocytes (Manual) 18 L (24-44) % Monocytes (Manual) 4 (0.0-12.0) % Platelet Estimate NORMAL (NORMAL) RBC Morphology NORMAL Puncture Site RIGHT BRACHIAL pCO2 34 L (35-45) mmHg pO2 76 (75-100) mmHg Base Excess -0.5 (-2.0-2.0) O2 Saturation 94.8 (94-100) g/dF ABG pH 7.44 (7.35-7.45) ABG HCO3 23.1 (22-28) ABG O2 Sat (Measured) 96.9 (95-100) % Kapil Test YES A-a Gradient 31 a/A Ratio 0.71 Hemoglobin 15.1 Carboxyhemoglobin 1.5 (0.0-6.9) % THgb Methemoglobin 0.7 L (1.4-1.5) % Temperature 37.0 C POC O2 Flow Rate 21 % Sodium 128 L (137-145) mmol/L Potassium 3.7 4.1 (3.5-5.1) mmol/L Chloride 91 L (98-107) mmol/L Carbon Dioxide 25 (22-30) mmol/L Anion Gap 16.4 H (5-15) MEQ/L BUN 16 (9-20) mg/dL Creatinine 0.75 (0.66-1.25) mg/dL Estimated GFR > 60.0 ML/MIN Glucose 517 H* (74-106) mg/dL Calcium 9.3 (8.4-10.2) mg/dL Troponin I < 0.012 (0.000-0.034) ng/mL NT-Pro-B Natriuret Pep 77.0 (0-900) pg/mL - Progress Progress: improved Progress Note: 07/23/20 01:20 Corrected serum sodium for glucose was 135 mEq/L. I also reviewed the patient's EMR and it appears he has a positive COVID-19 test in our system dated July 12, 2020. 07/23/20 01:21 The patient was noted to have hyperglycemia with a level in the 500s. This is likely sequelae of his history of diabetes mellitus in conjunction with recently taking oral steroids. 20 units of insulin have been ordered. It also appears the patient has low bicarb and an ABG has been ordered to eval for evidence of acidosis. 07/23/20 02:[address] Ventura who agreed to admit for observation The patient was reassessed to find that his dyspnea had improved after receiving an Albuterol MDI and his room air SpO2 was 95%. He appeared to be in no obvious distress. 07/23/20 02:28 I reviewed the patient's chest CT and did not notice any obvious pulmonary embolus. Currently awaiting formal radiology review. Discussed with : Marshall Will see patient in: hospital (observation) Counseled pt/family regarding: lab results, diagnosis, rad results - Departure Departure Disposition: Observation Clinical Impression: Acute respiratory failure with hypoxia, Pneumonia due to 2019-nCoV, Hyperglyc emia, History of COPD, Hx of diabetes mellitus Condition: Stable Critical Care Time: No Referrals: HARRISON VENTURA MD [Primary Care Provider] -
[2020-07-23] MEDS ORDERED: TYLENOL EXTRA STRENGTH 500 MG ONE (00:35)
[2020-07-23] MEDS ORDERED: TYLENOL EXTRA STRENGTH 500 MG PO STA (00:36)
[2020-07-23 00:40] LABS: Hematocrit 43.7 % (42-50); Hemoglobin 15.5 gm/dl (12.5-18.0); Mean Corpuscular Hemoglobin 29.8 pg (26-32); Mean Corpuscular Hgb Concent. 35.5 g/dl (32-36); Mean Platelet Volume 9.9 fl (7.5-11.0); Platelet Count 262 K/mm3 (150-450); Red Cell Distribution Width 12.6 % (11.5-14.0); White Blood Count 10.7 K/mm3 (4.0-10.5)
[2020-07-23 01:04] LABS: ANION GAP 16.4 MEQ/L (5-15); BLOOD UREA NITROGEN 16 mg/dL (9-20); CHLORIDE 91 mmol/L (98-107); Calcium 9.3 mg/dL (8.4-10.2); Carbon Dioxide 25 mmol/L (22-30); Creatinine 1 0.75 mg/dL (0.66-1.25); EST GLOMERULAR FILTRATION RATE > 60.0 ML/MIN; Potassium 4.1 mmol/L (3.5-5.1); SODIUM 128 mmol/L (137-145); TROPONIN < 0.012 ng/mL (0.000-0.034)
[2020-07-23 01:15] LABS: Glucose 517 mg/dL (74-106)
[2020-07-23] MEDS ORDERED: HUMALOG SQ ONE (01:18)
[2020-07-23] MEDS ORDERED: Sodium Chloride 0.9% 1000 ML 1,000 ML IV STA (01:22)
[2020-07-23 01:33] LABS: A-aADO2 31; ABG HEMOGLOBIN 15.1; ABG POTASSIUM 3.7 (3.5-5.1); ABG SITE RIGHT BRACHIAL; ALLEN TEST OK? YES; ARTERIAL BLD GAS O2 SATURATION 96.9 % (95-100); ARTERIAL BLOOD GAS BASE EXCESS -0.5 (-2.0-2.0); ARTERIAL BLOOD GAS FIO2 21 %; ARTERIAL BLOOD GAS PCO2 34 mmHg (35-45); ARTERIAL BLOOD GAS PO2 76 mmHg (75-100); ARTERIAL BLOOD GAS pH 7.44 (7.35-7.45); CARBOXYHEMOGLOBIN 1.5 % THgb (0.0-6.9); HCO3- 23.1 (22-28); HGB O2 SAT 94.8 g/dF (94-100); Methhemoglobin 0.7 % (1.4-1.5); paO2 pAO1 0.71
[2020-07-23 01:49] LABS: Lymphocytes 18 % (24-44); Monocyte 4 % (0.0-12.0); Neutrophils 78 % (36.-66.); Total Cells Counted 100
[2020-07-23 01:50] LABS: Platelet Estimate NORMAL (NORMAL)
[2020-07-23] MEDS ORDERED: HUMALOG ONE (02:00)
[2020-07-23] MEDS ORDERED: Sodium Chloride 0.9% 1000 ML 1,000 ML ONE (02:00)
[2020-07-23] MEDS ORDERED: TYLENOL 325 MG PO PRN (02:04)
--- NOTE | 2020-07-23 09:04 | XRAY ---
Indication: [place] breath and nonproductive cough. Positive Covid 19. History lung cancer. Multiple contiguous axial images obtained through the chest using 100 cc Isovue 370 contrast and PE protocol. Comparison: Conventional CT chest June 21, 2013. There is good opacification of the pulmonary arteries to includes the lobar and segmental branches. No pulmonary embolus. Heart is not enlarged. Aorta is normal in course and caliber without aneurysm/dissection. No pathologic mediastinal/hilar lymphadenopathy. Lungs demonstrates new diffuse patchy groundglass airspace disease bilaterally. No consolidation/effusion. Stable right pleural-parenchymal fibrosis/scarring and tiny right mid lung calcified granuloma. Bony thorax intact with mild degenerative changes throughout the spine. Limited upper abdomen again demonstrates cholecystectomy. Impression: 1. Negative pulmonary embolus. 2. New diffuse bilateral patchy groundglass airspace disease without consolidation/effusion. 3. Stable right lung pleural-parenchymal fibrosis/scarring. Comment: Preliminary interpretation was made by [facility]. No critical discrepancy.
[2020-07-23] MEDS ORDERED: FLUZONE QUAD 2020-2021 SYRINGE IM ONE (10:00)
[2020-07-23] MEDS ORDERED: Pepcid 20 MG VIAL IV SCH (10:00)
[2020-07-23] MEDS: ENOXAPARIN SODIUM SQ SCH (11:04)
[2020-07-23] MEDS ORDERED: Ativan 1 MG PO PRN (11:10)
[2020-07-23] MEDS ORDERED: ADVAIR 500-50 DISKUS IH PRN (11:15)
[2020-07-23] MEDS ORDERED: LOPERAMIDE HCL PO PRN (11:15)
[2020-07-23] MEDS: HUMALOG SQ PRN ×3 (11:36→23:34)
[2020-07-23] MEDS: Lantus Insulin SQ SCH (11:36)
[2020-07-23] MEDS: Protonix 40MG Tablet PO SCH (11:51)
[2020-07-23] MEDS: Decadron 4 MG INJ IV SCH ×2 (11:51→22:48)
[2020-07-23] MEDS ORDERED: Advair Hfa 230/21 Mcg COMMON CANISTER IH SCH (12:00)
[2020-07-23] MEDS ORDERED: REMDESIVIR 200 MG in Sodium Chloride 0.9% 250 ML 250 ML IV ONE (12:00)
[2020-07-23] MEDS: IMODIUM 2 MG PO PRN ×2 (12:12→12:28)
[2020-07-23] MEDS: QUESTRAN Light 4 GM Packet PO SCH (12:29)
[2020-07-23] MEDS: VENTOLIN COMMON CANISTER IH PRN (21:10)
[2020-07-23] MEDS ORDERED: Ativan 1 MG PO SCH (22:00)
[2020-07-24 06:19] LABS: INR 1.13 (0.8-3.0); PROTIME 12.8 SECONDS (8.83-12.87)
[2020-07-24 06:26] LABS: ALBUMIN 3.4 g/dL (3.5-5.0); ALKALINE PHOSPHATASE 82 U/L (38-126); BLOOD UREA NITROGEN 19 mg/dL (9-20); CHLORIDE 99 mmol/L (98-107); Calcium 9.2 mg/dL (8.4-10.2); Carbon Dioxide 26 mmol/L (22-30); Creatinine 1 0.68 mg/dL (0.66-1.25); EST GLOMERULAR FILTRATION RATE > 60.0 ML/MIN; Glucose 328 mg/dL (74-106); Potassium 4.5 mmol/L (3.5-5.1); SGOT/AST 20 U/L (17-59); SGPT/ALT 15 U/L (0-50); SODIUM 131 mmol/L (137-145); Total Protein 6.1 g/dL (6.3-8.2)
[2020-07-24] MEDS: HUMALOG SQ PRN (08:34)
[2020-07-24] MEDS: IMODIUM 2 MG PO PRN (08:34)
[2020-07-24] MEDS ORDERED: NON-FORMULARY ITEM (Omeprazole [Omeprazole] 40 MG) PO SCH (10:00)
[2020-07-24] MEDS ORDERED: REMDESIVIR 100 MG in Sodium Chloride 0.9% 100 ML IVPB 100 ML IV SCH (10:00)
[2020-07-24] MEDS ORDERED: Pepcid 20 MG PO SCH (10:00)
[2020-07-24] MEDS ORDERED: INSULIN GLARGINE HUM REC ANLOG 20 UNIT SQ SCH (10:00)
[2020-07-24] MEDS ORDERED: FLUZONE QUAD 2020-2021 SYRINGE IM ONE (10:00)
[2020-07-24] MEDS ORDERED: NON-FORMULARY ITEM (Famotidine [Pepcid] 40 MG) PO SCH (10:00)
[2020-07-24] MEDS: VENTOLIN COMMON CANISTER IH PRN (10:34)
[2020-07-24 10:35] VITALS: O2SAT 96
[2020-07-24] MEDS: Decadron 4 MG INJ IV SCH (10:45)
[2020-07-24] MEDS: ENOXAPARIN SODIUM SQ SCH (10:48)
[2020-07-24] MEDS: Protonix 40MG Tablet PO SCH (10:52)
[2020-07-24] MEDS: QUESTRAN Light 4 GM Packet PO SCH (10:52)
[2020-07-24] MEDS: Lantus Insulin SQ SCH (11:02)
[2020-07-24 12:33] VITALS: BP 147/92; PULSE 70
== END 2020-07-24 13:00 | disposition home or self-care (01) ==
LOC: ED 23:44 → MED SURG 07-23 02:54
PROVIDERS: ADMIT General Practice; ATTEND General Practice
DX: U07.1 COVID-19 (principal); J12.89 Other viral pneumonia; J45.909 Unspecified asthma, uncomplicated; Z79.899 Other long term (current) drug therapy; Z85.118 Personal history of other malignant neoplasm of bronchus and lung; I10 Essential (primary) hypertension; E78.00 Pure hypercholesterolemia, unspecified; E11.65 Type 2 diabetes mellitus with hyperglycemia; Z23 Encounter for immunization
CPT/HCPCS: 36000; 36415; 36600; 71260; 80048; 80053; 82375; 82803; 82947; 83036; 83880; 84484; 85025; 85379; 85610; 93005; 93041; 93268; 94640; 94762; 99285; G0008; G0378; 90686; J1100; J1650; J1817; A9270-GY

== ENCOUNTER 2020-11-12 17:50 | Observation (INO) | payer BC ==
[2020-11-12] MEDS ORDERED: Sodium Chloride 0.9% 1000 ML 1,000 ML IV STA ×3 (18:18→20:14)
[2020-11-12] MEDS ORDERED: Sodium Chloride 0.9% 1000 ML 1,000 ML ONE ×3 (18:20→20:31)
[2020-11-12] MEDS ORDERED: HUMULIN R SQ ONE (18:21)
[2020-11-12] MEDS ORDERED: HUMULIN R ONE ×3 (18:23→20:19)
[2020-11-12 18:35] LABS: Hematocrit 46.4 % (42-50); Hemoglobin 16.2 gm/dl (12.5-18.0); Mean Cell Volume 87.5 fl (78-100); Mean Corpuscular Hemoglobin 30.6 pg (26-32); Mean Corpuscular Hgb Concent. 34.9 g/dl (32-36); Mean Platelet Volume 10.4 fl (7.5-11.0); Platelet Count 294 K/mm3 (150-450); Red Cell Distribution Width 12.9 % (11.5-14.0); White Blood Count 11.4 K/mm3 (4.0-10.5)
[2020-11-12 18:47] LABS: ALBUMIN 4.4 g/dL (3.5-5.0); ALKALINE PHOSPHATASE 105 U/L (38-126); ANION GAP 27.9 MEQ/L (5-15); BLOOD UREA NITROGEN 39 mg/dL (9-20); CHLORIDE 91 mmol/L (98-107); Calcium 9.8 mg/dL (8.4-10.2); Creatinine 1 1.15 mg/dL (0.66-1.25); EST GLOMERULAR FILTRATION RATE > 60.0 ML/MIN; Potassium 4.5 mmol/L (3.5-5.1); SGOT/AST 20 U/L (17-59); SGPT/ALT 58 U/L (0-50); SODIUM 127 mmol/L (137-145); Total Protein 6.6 g/dL (6.3-8.2)
[2020-11-12] MEDS ORDERED: Zofran 4 MG/2 ML VIAL IV ONE (18:58)
[2020-11-12 18:59] LABS: Carbon Dioxide 12 mmol/L (22-30); Glucose 684 mg/dL (74-106)
[2020-11-12] MEDS ORDERED: Zofran 4 MG/2 ML VIAL ONE (19:04)
[2020-11-12] MEDS ORDERED: HUMULIN R IV ONE (19:05)
[2020-11-12 19:47] LABS: BAND 3 % (0.0-2.0); Lymphocytes 9 % (24-44); Neutrophils 85 % (36.-66.); Total Cells Counted 100
[2020-11-12 19:48] LABS: Monocyte 3 % (0.0-12.0); Platelet Estimate NORMAL (NORMAL)
[2020-11-12] MEDS ORDERED: HUMULIN R 100 UNIT in Sodium Chloride 0.9% 100 ML IVPB 100 ML IV PRN (20:12)
[2020-11-12] MEDS ORDERED: Sodium Chloride 0.9% 100 ML IVPB 100 ML IV ONE (20:19)
[2020-11-12 20:30] LABS: Appearance CLEAR (CLEAR); Bilirubin NEGATIVE (NEGATIVE); Blood NEGATIVE Ery/ul (0-5); Glucose >=500 mg/dL (NEGATIVE); Ketones MODERATE (NEGATIVE); Leukocyte Esterase NEGATIVE (NEGATIVE); Nitrite NEGATIVE (NEGATIVE); Protein,Urine Dip NEGATIVE (Negative); Specific Gravity 1.026 (1.005-1.025); Urobilinogen NEGATIVE mg/dL (0-1)
[2020-11-12 21:00] LABS: INFLUENZA A NEGATIVE (NEGATIVE); INFLUENZA B NEGATIVE (NEGATIVE); RESPIRATORY SYNCTIAL VIRUS NEGATIVE (Negative)
[2020-11-12 21:32] LABS: ANION GAP 16.3 MEQ/L (5-15); BLOOD UREA NITROGEN 33 mg/dL (9-20); Calcium 8.8 mg/dL (8.4-10.2); Carbon Dioxide 19 mmol/L (22-30); Creatinine 1 0.89 mg/dL (0.66-1.25); EST GLOMERULAR FILTRATION RATE > 60.0 ML/MIN; Glucose 302 mg/dL (74-106)
[2020-11-12 21:33] LABS: CHLORIDE 103 mmol/L (98-107); Potassium 3.5 mmol/L (3.5-5.1); SODIUM 135 mmol/L (137-145)
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
[2020-11-12] MEDS ORDERED: Zofran 4 MG/2 ML VIAL IV PRN (21:51)
[2020-11-12] MEDS ORDERED: Sodium Chloride 0.9% W/ 20 mEq KCl/LITER 1,000 ML IV SCH (22:00)
[2020-11-12] MEDS ORDERED: SODIUM CHLORIDE 0.9% W/ 40 mEq KCL 1000ML 1,000 ML IV ONE (22:21)
[2020-11-12] MEDS ORDERED: SODIUM CHLORIDE 0.9% W/ 40 mEq KCL 1000ML 1,000 ML IV SCH (22:30)
[2020-11-12] MEDS: D5W/0.45NS W/ 20mEq KCl 1000 ML 1,000 ML IV SCH (23:28)
[2020-11-13] MEDS ORDERED: Lantus Insulin SQ ONE (00:15)
[2020-11-13 00:27] LABS: ANION GAP 10.6 MEQ/L (5-15); BLOOD UREA NITROGEN 30 mg/dL (9-20); CHLORIDE 107 mmol/L (98-107); Calcium 8.7 mg/dL (8.4-10.2); Carbon Dioxide 21 mmol/L (22-30); Creatinine 1 0.73 mg/dL (0.66-1.25); EST GLOMERULAR FILTRATION RATE > 60.0 ML/MIN; Glucose 184 mg/dL (74-106); Potassium 3.5 mmol/L (3.5-5.1); SODIUM 135 mmol/L (137-145)
[2020-11-13] MEDS ORDERED: HUMULIN R SQ PRN (02:07)
[2020-11-13 03:37] VITALS: O2SAT 98
[2020-11-13 04:07] LABS: BASOPHIL % 0.3 % (0.0-0.4); Basophil (Absolute #) 0.03 (0-0.4); Eosinophil % 0.1 % (0.00-5.0); Eosinophil (Absolute #) 0.01 (0-0.5); Hematocrit 37.2 % (42-50); Hemoglobin 13.2 gm/dl (12.5-18.0); Lymphocytes % 12.1 % (24.0-44.0); Mean Cell Volume 87.5 fl (78-100); Mean Corpuscular Hemoglobin 31.1 pg (26-32); Mean Corpuscular Hgb Concent. 35.5 g/dl (32-36); Mean Platelet Volume 9.4 fl (7.5-11.0); Monocyte (Absolute #) 1.07 (0.0-1.3); Neutrophil % 77.5 % (36.0-66.0); Platelet Count 238 K/mm3 (150-450); Red Blood Count 4.25 M/mm3 (4.1-5.6); Red Cell Distribution Width 12.7 % (11.5-14.0); White Blood Count 10.7 K/mm3 (4.0-10.5)
[2020-11-13 04:26] LABS: ALBUMIN 2.9 g/dL (3.5-5.0); ALKALINE PHOSPHATASE 78 U/L (38-126); ANION GAP 9.2 MEQ/L (5-15); BLOOD UREA NITROGEN 27 mg/dL (9-20); CHLORIDE 106 mmol/L (98-107); Calcium 8.6 mg/dL (8.4-10.2); Carbon Dioxide 21 mmol/L (22-30); Creatinine 1 0.69 mg/dL (0.66-1.25); EST GLOMERULAR FILTRATION RATE > 60.0 ML/MIN; Glucose 223 mg/dL (74-106); Potassium 3.6 mmol/L (3.5-5.1); SGOT/AST 35 U/L (17-59); SGPT/ALT 45 U/L (0-50); SODIUM 133 mmol/L (137-145); Total Protein 4.9 g/dL (6.3-8.2)
[2020-11-13] MEDS: D5W/0.45NS W/ 20mEq KCl 1000 ML 1,000 ML IV SCH (05:05)
[2020-11-13] MEDS: HUMALOG SQ PRN ×2 (05:51→10:00)
[2020-11-13] MEDS ORDERED: ADVAIR 500-50 DISKUS IH PRN (07:53)
[2020-11-13] MEDS ORDERED: PROVENTIL 2.5 MG/3 ML NEB IH PRN (07:53)
[2020-11-13] MEDS ORDERED: Ventolin Hfa MDI IH PRN (07:53)
[2020-11-13] MEDS ORDERED: Advair Hfa 230/21 Mcg COMMON CANISTER IH PRN (08:01)
[2020-11-13] MEDS ORDERED: VENTOLIN COMMON CANISTER IH PRN (08:08)
[2020-11-13] MEDS ORDERED: MEDICATION INTERVENTION MC SCH (08:15)
[2020-11-13 09:01] LABS: ANION GAP 8.6 MEQ/L (5-15); BLOOD UREA NITROGEN 24 mg/dL (9-20); CHLORIDE 105 mmol/L (98-107); Calcium 8.8 mg/dL (8.4-10.2); Carbon Dioxide 23 mmol/L (22-30); Creatinine 1 0.68 mg/dL (0.66-1.25); EST GLOMERULAR FILTRATION RATE > 60.0 ML/MIN; Glucose 219 mg/dL (74-106); Potassium 3.4 mmol/L (3.5-5.1); SODIUM 133 mmol/L (137-145)
[2020-11-13] MEDS ORDERED: NON-FORMULARY ITEM (Fluticasone/Umeclidin/Vilanter [Trelegy Ellipta 100-62.5-25] 1 PUFF) IH SCH (10:00)
[2020-11-13] MEDS ORDERED: PROTONIX 40 MG IV IV SCH (10:00)
[2020-11-13] MEDS ORDERED: NON-FORMULARY ITEM (Omeprazole [Omeprazole] 40 MG) PO SCH (10:00)
[2020-11-13] MEDS ORDERED: NON-FORMULARY ITEM (Famotidine [Pepcid] 40 MG) PO SCH (10:00)
[2020-11-13] MEDS ORDERED: Pepcid 20 MG PO SCH (10:00)
[2020-11-13] MEDS ORDERED: Lomotil PO PRN (10:00)
[2020-11-13] MEDS ORDERED: NORVASC 5 MG PO SCH (10:00)
[2020-11-13] MEDS ORDERED: Protonix 40MG Tablet PO SCH (10:00)
[2020-11-13] MEDS ORDERED: DELTASONE 20 MG PO SCH (10:00)
[2020-11-13 11:44] VITALS: BP 135/77; PULSE 82
--- NOTE | 2020-11-13 13:02 | PCM.SSS ---
History of Present Illness - Chief Complaint Chief Complaint: nausea and vomiting for 1-2 days History of Present Illness: is a 54 year old male.presents w N/V/anorexia x1 day. Pt denies abdominal pain/chest pain/fever/hematemesis/diarrhea/melena/hematochezia/cough. Timing/Duration: yesterday Activities at Onset: rest Quality: other (No pain) Abdominal Pain Onset Location: other (No pain) Pain Radiation: no radiation Severity of Pain-Max: none Severity of Pain-Current: none Modifying Factors: Improves With: eating, vomiting. Worsens With: analgesics, antacids, breathing, coughing, defecating, exercise, lying down, movement, palpation, rest, urinating, position, walking Associated Symptoms: loss of appetite, nausea, vomiting, weakness, No back, No chest pain, No diaphoresis, No diarrhea, No fever/chills, No fatigue, No headache, No heartburn, No neck pain, No rash, No shortness of breath, No syncope, No testicular pain Previous symptoms: same symptoms as today - Review of Systems Constitutional: Weakness, No Fever, No Chills Eyes: No Symptoms Ears, Nose, & Throat: No Symptoms Respiratory: No Cough, No Short Of Breath Cardiac: No Chest Pain, No Edema, No Syncope Abdominal/Gastrointestinal: Nausea, Vomiting, No Abdominal Pain, No Diarrhea Genitourinary Symptoms: No Dysuria Musculoskeletal: No Back Pain, No Neck Pain Skin: No Rash Neurological: No Dizziness, No Focal Weakness, No Sensory Changes Psychological: No Symptoms Endocrine: No Symptoms Hematologic/Lymphatic: No Symptoms Immunological/Allergic: No Symptoms Medications & Allergies Home Medications: Home Medication List Fluticasone/Salmeterol 500/50* [Advair 500-50 Diskus] 1 puff IH BID PRN 02/26/15 [History Confirmed 11/12/20] Albuterol 2.5 mg/3 ml Neb [Proventil 2.5 mg/3 ml Neb] 3 ml IH QID PRN PRN 10/15/16 [History Confirmed 11/12/20] Albuterol Sulfate [Proair Hfa] 2 puffs IH QIDPRN PRN 10/15/16 [History Confirmed 11/12/20] Famotidine [Pepcid] 40 mg PO DAILY 07/23/20 [History Confirmed 11/12/20] Fluticasone/Umeclidin/Vilanter [Trelegy Ellipta 100-62.5-25] 1 puff IH DAILY 07/23/20 [History Confirmed 11/12/20] Omeprazole 40 mg PO DAILY 07/23/20 [History Confirmed 11/12/20] predniSONE [Prednisone] 20 mg PO UD #60 tablet 07/24/20 [Rx Confirmed 11/12/20] Amlodipine Besylate 5 mg [Norvasc 5 mg] 5 mg PO DAILY 11/12/20 [History Confirmed 11/12/20] Diphenoxylate HCl/Atropine [Lomotil] 3 udtab PO DAILY 11/12/20 [History Confirmed 11/12/20] Insulin Glargine,Hum.rec.anlog [Basaglar Kwikpen U-100] 30 unit SQ HS 11/13/20 [History Confirmed 11/13/20] Insulin Regular, Human [Novolin R Flexpen] 20 units SQ BID 11/13/20 [History Confirmed 11/13/20] Allergies/Adverse Reactions: Allergies Allergy/AdvReac Type Severity Reaction Status Date / Time lisinopril Allergy Mild Anaphylactic Verified 07/23/20 00:14 Reaction naproxen AdvReac Mild Rash Verified 07/23/20 00:14 - Past Medical History Past Medical History: Yes Neurological History: No Pertinent History ENT History: Cataracts Cardiac History: No Pertinent History Respiratory History: Asthma, COPD, Lung Cancer, Pneumonia, Other Endocrine Medical History: Diabetes Type II Musculoskelatal History: Fractures GI Medical History: Gallbladder Disease, Irritable Bowel History: No Pertinent History Pyscho-Social History: No Pertinent History Male Reproductive Disorders: No Pertinent History Comment: HAS BEEN IN REMISSION FOR LUNG CANCER X 10 YEARS. HX FRACTURE RIBS AND T6, T7 6 YEARS AGO AFTER FALL FROM LADDER. HX OF IBS, CHOLECYSTECTOMY - Past Surgical History Past Surgical History: Yes Neuro Surgical History: No Pertinent History Cardiac History: No Pertinent History Respiratory Surgery: Lobectomy GI Surgical History: Cholecystectomy Genitourinary Surgical Hx: No Pertinent History Musculskeletal Surgical Hx: No Pertinent History Male Surgical History: No Pertinent History Other Surgical History: right side lymph nodes removed - Social History Smoking Status: Never smoker Exposure to second hand smoke: No Alcohol: None Drug Use: none Significant Family History: no pertinent family hx - Physical Exam Vital Signs: Vital Signs - 24 hr Temp Pulse Resp BP Pulse Ox 11/13/20 11:44 98.2 F 82 16 135/77 98 11/13/20 11:15 18 11/13/20 07:32 71 18 11/13/20 05:06 67 16 131/74 98 11/13/20 03:37 79 19 11/13/20 03:36 70 19 114/68 98 11/13/20 02:00 78 18 145/79 99 11/13/20 00:52 77 18 123/79 98 11/12/20 23:39 84 17 98 11/12/20 23:19 87 14 126/72 11/12/20 22:21 97.3 F 94 H 16 124/83 99 11/12/20 21:56 99 11/12/20 21:00 79 16 136/72 99 11/12/20 20:00 88 16 118/73 97 11/12/20 19:00 83 16 147/86 100 11/12/20 18:54 95 H 14 136/88 99 11/12/20 17:57 97.0 F 96 H 20 147/92 100 General Appearance: no apparent distress, alert Neurologic Exam: alert, oriented x 3, cooperative, normal mood/affect, nml cerebellar function, nml station & gait, sensation nml, No motor deficits Eye Exam: PERRL/EOMI, eyes nml inspection Ears, Nose, Throat Exam: normal ENT inspection, TMs normal, pharynx normal, moist mucous membranes Neck Exam: normal inspection, non-tender, supple, full range of motion Respiratory Exam: normal breath sounds, lungs clear, No respiratory distress Cardiovascular Exam: regular rate/rhythm, normal heart sounds, normal peripheral pulses Gastrointestinal/Abdomen Exam: soft, normal bowel sounds, No tenderness, No mass Back Exam: normal inspection, normal range of motion, No CVA tenderness, No vertebral tenderness Extremity Exam: normal inspection, normal range of motion, pelvis stable Skin Exam: normal color, warm, dry, No rash Lymphatic Exam: No adenopathy Results - Labs Lab/Micro Results: Lab Results-Last 24 Hours 11/12/20 11/12/20 11/12/20 Range/Units 18:00 18:00 18:00 WBC 11.4 H (4.0-10.5) K/mm3 RBC 5.30 (4.1-5.6) M/mm3 Hgb 16.2 (12.5-18.0) gm/dl Hct 46.4 (42-50) % MCV 87.5 (78-100) fl MCH 30.6 (26-32) pg MCHC 34.9 (32-36) g/dl RDW 12.9 (11.5-14.0) % Plt Count 294 (150-450) K/mm3 MPV 10.4 (7.5-11.0) fl Gran % (36.0-66.0) % Eos # (Auto) (0-0.5) Absolute Lymphs (auto) (1.0-4.6) Absolute Monos (auto) (0.0-1.3) Lymphocytes % (24.0-44.0) % Monocytes % (0.0-12.0) % Eosinophils % (0.00-5.0) % Basophils % (0.0-0.4) % Absolute Granulocytes (1.4-6.9) Segmented Neutrophils 85 H (36.-66.) % Band Neutrophils 3 H (0.0-2.0) % Lymphocytes (Manual) 9 L (24-44) % Monocytes (Manual) 3 (0.0-12.0) % Basophils # (0-0.4) Platelet Estimate NORMAL (NORMAL) RBC Morphology NORMAL Sodium 127 L (137-145) mmol/L Potassium 4.5 (3.5-5.1) mmol/L Chloride 91 L (98-107) mmol/L Carbon Dioxide 12 L* (22-30) mmol/L Anion Gap 27.9 H (5-15) MEQ/L BUN 39 H (9-20) mg/dL Creatinine 1.15 (0.66-1.25) mg/dL Estimated GFR > 60.0 ML/MIN Glucose 684 H* (74-106) mg/dL POC Glucometer (50 to 500) mg/dL Lactic Acid (0.4-2.0) Calcium 9.8 (8.4-10.2) mg/dL Phosphorus (2.5-4.5) mg/dL Magnesium (1.6-2.3) mg/dL Total Bilirubin 0.50 (0.2-1.3) mg/dL AST 20 (17-59) U/L ALT 58 H (0-50) U/L Alkaline Phosphatase 105 (38-126) U/L Troponin I < 0.012 (0.000-0.034) ng/mL Serum Total Protein 6.6 (6.3-8.2) g/dL Albumin 4.4 (3.5-5.0) g/dL Urine Color (YELLOW) Urine Appearance (CLEAR) Urine pH (5-6) Ur Specific [place] (1.005-1.025) Urine Protein (Negative) Urine Ketones (NEGATIVE) Urine Blood (0-5) Kaden/ul Urine Nitrite (NEGATIVE) Urine Bilirubin (NEGATIVE) Urine Urobilinogen (0-1) mg/dL Ur Leukocyte Esterase (NEGATIVE) Urine WBC (Auto) (0-5) /HPF Urine RBC (Auto) (0-2) /HPF U Epithel Cells (Auto) (FEW) /HPF Urine Bacteria (Auto) (NEGATIVE) /HPF Urine Culture Reflexed (NO) Urine Glucose (NEGATIVE) mg/dL Influenza Type A Ag (NEGATIVE) Influenza Type B Ag (NEGATIVE) RSV (PCR) (Negative) SARS-CoV-2 (PCR) (NEGATIVE) 11/12/20 11/12/20 11/12/20 Range/Units 18:00 18:00 18:45 WBC (4.0-10.5) K/mm3 RBC (4.1-5.6) M/mm3 Hgb (12.5-18.0) gm/dl Hct (42-50) % MCV (78-100) fl MCH (26-32) pg MCHC (32-36) g/dl RDW (11.5-14.0) % Plt Count (150-450) K/mm3 MPV (7.5-11.0) fl Gran % (36.0-66.0) % Eos # (Auto) (0-0.5) Absolute Lymphs (auto) (1.0-4.6) Absolute Monos (auto) (0.0-1.3) Lymphocytes % (24.0-44.0) % Monocytes % (0.0-12.0) % Eosinophils % (0.00-5.0) % Basophils % (0.0-0.4) % Absolute Granulocytes (1.4-6.9) Segmented Neutrophils (36.-66.) % Band Neutrophils (0.0-2.0) % Lymphocytes (Manual) (24-44) % Monocytes (Manual) (0.0-12.0) % Basophils # (0-0.4) Platelet Estimate (NORMAL) RBC Morphology Sodium (137-145) mmol/L Potassium (3.5-5.1) mmol/L Chloride (98-107) mmol/L Carbon Dioxide (22-30) mmol/L Anion Gap (5-15) MEQ/L BUN (9-20) mg/dL Creatinine (0.66-1.25) mg/dL Estimated GFR ML/MIN Glucose (74-106) mg/dL POC Glucometer (50 to 500) mg/dL Lactic Acid 2.1 H (0.4-2.0) Calcium (8.4-10.2) mg/dL Phosphorus 4.4 (2.5-4.5) mg/dL Magnesium 2.5 H (1.6-2.3) mg/dL Total Bilirubin (0.2-1.3) mg/dL AST (17-59) U/L ALT (0-50) U/L Alkaline Phosphatase (38-126) U/L Troponin I (0.000-0.034) ng/mL Serum Total Protein (6.3-8.2) g/dL Albumin (3.5-5.0) g/dL Urine Color (YELLOW) Urine Appearance (CLEAR) Urine pH (5-6) Ur Specific [place] (1.005-1.025) Urine Protein (Negative) Urine Ketones (NEGATIVE) Urine Blood (0-5) Kaden/ul Urine Nitrite (NEGATIVE) Urine Bilirubin (NEGATIVE) Urine Urobilinogen (0-1) mg/dL Ur Leukocyte Esterase (NEGATIVE) Urine WBC (Auto) (0-5) /HPF Urine RBC (Auto) (0-2) /HPF U Epithel Cells (Auto) (FEW) /HPF Urine Bacteria (Auto) (NEGATIVE) /HPF Urine Culture Reflexed (NO) Urine Glucose (NEGATIVE) mg/dL Influenza Type A Ag (NEGATIVE) Influenza Type B Ag (NEGATIVE) RSV (PCR) (Negative) SARS-CoV-2 (PCR) (NEGATIVE) 11/12/20 11/12/20 11/12/20 Range/Units 20:00 20:10 20:11 WBC (4.0-10.5) K/mm3 RBC (4.1-5.6) M/mm3 Hgb (12.5-18.0) gm/dl Hct (42-50) % MCV (78-100) fl MCH (26-32) pg MCHC (32-36) g/dl RDW (11.5-14.0) % Plt Count (150-450) K/mm3 MPV (7.5-11.0) fl Gran % (36.0-66.0) % Eos # (Auto) (0-0.5) Absolute Lymphs (auto) (1.0-4.6) Absolute Monos (auto) (0.0-1.3) Lymphocytes % (24.0-44.0) % Monocytes % (0.0-12.0) % Eosinophils % (0.00-5.0) % Basophils % (0.0-0.4) % Absolute Granulocytes (1.4-6.9) Segmented Neutrophils (36.-66.) % Band Neutrophils (0.0-2.0) % Lymphocytes (Manual) (24-44) % Monocytes (Manual) (0.0-12.0) % Basophils # (0-0.4) Platelet Estimate (NORMAL) RBC Morphology Sodium (137-145) mmol/L Potassium (3.5-5.1) mmol/L Chloride (98-107) mmol/L Carbon Dioxide (22-30) mmol/L Anion Gap (5-15) MEQ/L BUN (9-20) mg/dL Creatinine (0.66-1.25) mg/dL Estimated GFR ML/MIN Glucose (74-106) mg/dL POC Glucometer 521 H* (50 to 500) mg/dL Lactic Acid (0.4-2.0) Calcium (8.4-10.2) mg/dL Phosphorus (2.5-4.5) mg/dL Magnesium (1.6-2.3) mg/dL Total Bilirubin (0.2-1.3) mg/dL AST (17-59) U/L ALT (0-50) U/L Alkaline Phosphatase (38-126) U/L Troponin I (0.000-0.034) ng/mL Serum Total Protein (6.3-8.2) g/dL Albumin (3.5-5.0) g/dL Urine Color YELLOW (YELLOW) Urine Appearance CLEAR (CLEAR) Urine pH 5.0 (5-6) Ur Specific [place] 1.026 (1.005-1.025) Urine Protein NEGATIVE (Negative) Urine Ketones MODERATE (NEGATIVE) Urine Blood NEGATIVE (0-5) Kaden/ul Urine Nitrite NEGATIVE (NEGATIVE) Urine Bilirubin NEGATIVE (NEGATIVE) Urine Urobilinogen NEGATIVE (0-1) mg/dL Ur Leukocyte Esterase NEGATIVE (NEGATIVE) Urine WBC (Auto) NONE (0-5) /HPF Urine RBC (Auto) NONE (0-2) /HPF U Epithel Cells (Auto) NONE (FEW) /HPF Urine Bacteria (Auto) NONE (NEGATIVE) /HPF Urine Culture Reflexed NO (NO) Urine Glucose >=500 (NEGATIVE) mg/dL Influenza Type A Ag NEGATIVE (NEGATIVE) Influenza Type B Ag NEGATIVE (NEGATIVE) RSV (PCR) NEGATIVE (Negative) SARS-CoV-2 (PCR) NEGATIVE (NEGATIVE) 11/12/20 11/12/20 11/12/20 Range/Units 20:53 21:20 21:31 WBC (4.0-10.5) K/mm3 RBC (4.1-5.6) M/mm3 Hgb (12.5-18.0) gm/dl Hct (42-50) % MCV (78-100) fl MCH (26-32) pg MCHC (32-36) g/dl RDW (11.5-14.0) % Plt Count (150-450) K/mm3 MPV (7.5-11.0) fl Gran % (36.0-66.0) % Eos # (Auto) (0-0.5) Absolute Lymphs (auto) (1.0-4.6) Absolute Monos (auto) (0.0-1.3) Lymphocytes % (24.0-44.0) % Monocytes % (0.0-12.0) % Eosinophils % (0.00-5.0) % Basophils % (0.0-0.4) % Absolute Granulocytes (1.4-6.9) Segmented Neutrophils (36.-66.) % Band Neutrophils (0.0-2.0) % Lymphocytes (Manual) (24-44) % Monocytes (Manual) (0.0-12.0) % Basophils # (0-0.4) Platelet Estimate (NORMAL) RBC Morphology Sodium 135 L D (137-145) mmol/L Potassium 3.5 D (3.5-5.1) mmol/L Chloride 103 D (98-107) mmol/L Carbon Dioxide 19 L (22-30) mmol/L Anion Gap 16.3 H (5-15) MEQ/L BUN 33 H (9-20) mg/dL Creatinine 0.89 (0.66-1.25) mg/dL Estimated GFR > 60.0 ML/MIN Glucose 302 H (74-106) mg/dL POC Glucometer 302 H (50 to 500) mg/dL Lactic Acid 1.9 (0.4-2.0) Calcium 8.8 (8.4-10.2) mg/dL Phosphorus (2.5-4.5) mg/dL Magnesium (1.6-2.3) mg/dL Total Bilirubin (0.2-1.3) mg/dL AST (17-59) U/L ALT (0-50) U/L Alkaline Phosphatase (38-126) U/L Troponin I (0.000-0.034) ng/mL Serum Total Protein (6.3-8.2) g/dL Albumin (3.5-5.0) g/dL Urine Color (YELLOW) Urine Appearance (CLEAR) Urine pH (5-6) Ur Specific [place] (1.005-1.025) Urine Protein (Negative) Urine Ketones (NEGATIVE) Urine Blood (0-5) Kaden/ul Urine Nitrite (NEGATIVE) Urine Bilirubin (NEGATIVE) Urine Urobilinogen (0-1) mg/dL Ur Leukocyte Esterase (NEGATIVE) Urine WBC (Auto) (0-5) /HPF Urine RBC (Auto) (0-2) /HPF U Epithel Cells (Auto) (FEW) /HPF Urine Bacteria (Auto) (NEGATIVE) /HPF Urine Culture Reflexed (NO) Urine Glucose (NEGATIVE) mg/dL Influenza Type A Ag (NEGATIVE) Influenza Type B Ag (NEGATIVE) RSV (PCR) (Negative) SARS-CoV-2 (PCR) (NEGATIVE) 11/12/20 11/12/20 11/13/20 Range/Units 22:59 23:59 00:14 WBC (4.0-10.5) K/mm3 RBC (4.1-5.6) M/mm3 Hgb (12.5-18.0) gm/dl Hct (42-50) % MCV (78-100) fl MCH (26-32) pg MCHC (32-36) g/dl RDW (11.5-14.0) % Plt Count (150-450) K/mm3 MPV (7.5-11.0) fl Gran % (36.0-66.0) % Eos # (Auto) (0-0.5) Absolute Lymphs (auto) (1.0-4.6) Absolute Monos (auto) (0.0-1.3) Lymphocytes % (24.0-44.0) % Monocytes % (0.0-12.0) % Eosinophils % (0.00-5.0) % Basophils % (0.0-0.4) % Absolute Granulocytes (1.4-6.9) Segmented Neutrophils (36.-66.) % Band Neutrophils (0.0-2.0) % Lymphocytes (Manual) (24-44) % Monocytes (Manual) (0.0-12.0) % Basophils # (0-0.4) Platelet Estimate (NORMAL) RBC Morphology Sodium 135 L (137-145) mmol/L Potassium 3.5 (3.5-5.1) mmol/L Chloride 107 (98-107) mmol/L Carbon Dioxide 21 L (22-30) mmol/L Anion Gap 10.6 (5-15) MEQ/L BUN 30 H (9-20) mg/dL Creatinine 0.73 (0.66-1.25) mg/dL Estimated GFR > 60.0 ML/MIN Glucose 184 H (74-106) mg/dL POC Glucometer 234 H 183 H (50 to 500) mg/dL Lactic Acid (0.4-2.0) Calcium 8.7 (8.4-10.2) mg/dL Phosphorus (2.5-4.5) mg/dL Magnesium (1.6-2.3) mg/dL Total Bilirubin (0.2-1.3) mg/dL AST (17-59) U/L ALT (0-50) U/L Alkaline Phosphatase (38-126) U/L Troponin I (0.000-0.034) ng/mL Serum Total Protein (6.3-8.2) g/dL Albumin (3.5-5.0) g/dL Urine Color (YELLOW) Urine Appearance (CLEAR) Urine pH (5-6) Ur Specific [place] (1.005-1.025) Urine Protein (Negative) Urine Ketones (NEGATIVE) Urine Blood (0-5) Kaedn/ul Urine Nitrite (NEGATIVE) Urine Bilirubin (NEGATIVE) Urine Urobilinogen (0-1) mg/dL Ur Leukocyte Esterase (NEGATIVE) Urine WBC (Auto) (0-5) /HPF Urine RBC (Auto) (0-2) /HPF U Epithel Cells (Auto) (FEW) /HPF Urine Bacteria (Auto) (NEGATIVE) /HPF Urine Culture Reflexed (NO) Urine Glucose (NEGATIVE) mg/dL Influenza Type A Ag (NEGATIVE) Influenza Type B Ag (NEGATIVE) RSV (PCR) (Negative) SARS-CoV-2 (PCR) (NEGATIVE) 11/13/20 11/13/20 11/13/20 Range/Units 01:02 01:57 04:04 WBC 10.7 H (4.0-10.5) K/mm3 RBC 4.25 (4.1-5.6) M/mm3 Hgb 13.2 (12.5-18.0) gm/dl Hct 37.2 L (42-50) % MCV 87.5 (78-100) fl MCH 31.1 (26-32) pg MCHC 35.5 (32-36) g/dl RDW 12.7 (11.5-14.0) % Plt Count 238 (150-450) K/mm3 MPV 9.4 (7.5-11.0) fl Gran % 77.5 H (36.0-66.0) % Eos # (Auto) 0.01 (0-0.5) Absolute Lymphs (auto) 1.30 (1.0-4.6) Absolute Monos (auto) 1.07 (0.0-1.3) Lymphocytes % 12.1 L (24.0-44.0) % Monocytes % 10.0 (0.0-12.0) % Eosinophils % 0.1 (0.00-5.0) % Basophils % 0.3 (0.0-0.4) % Absolute Granulocytes 8.30 H (1.4-6.9) Segmented Neutrophils (36.-66.) % Band Neutrophils (0.0-2.0) % Lymphocytes (Manual) (24-44) % Monocytes (Manual) (0.0-12.0) % Basophils # 0.03 (0-0.4) Platelet Estimate (NORMAL) RBC Morphology Sodium (137-145) mmol/L Potassium (3.5-5.1) mmol/L Chloride (98-107) mmol/L Carbon Dioxide (22-30) mmol/L Anion Gap (5-15) MEQ/L BUN (9-20) mg/dL Creatinine (0.66-1.25) mg/dL Estimated GFR ML/MIN Glucose (74-106) mg/dL POC Glucometer 190 H 186 H (50 to 500) mg/dL Lactic Acid (0.4-2.0) Calcium (8.4-10.2) mg/dL Phosphorus (2.5-4.5) mg/dL Magnesium (1.6-2.3) mg/dL Total Bilirubin (0.2-1.3) mg/dL AST (17-59) U/L ALT (0-50) U/L Alkaline Phosphatase (38-126) U/L Troponin I (0.000-0.034) ng/mL Serum Total Protein (6.3-8.2) g/dL Albumin (3.5-5.0) g/dL Urine Color (YELLOW) Urine Appearance (CLEAR) Urine pH (5-6) Ur Specific [place] (1.005-1.025) Urine Protein (Negative) Urine Ketones (NEGATIVE) Urine Blood (0-5) Kaden/ul Urine Nitrite (NEGATIVE) Urine Bilirubin (NEGATIVE) Urine Urobilinogen (0-1) mg/dL Ur Leukocyte Esterase (NEGATIVE) Urine WBC (Auto) (0-5) /HPF Urine RBC (Auto) (0-2) /HPF U Epithel Cells (Auto) (FEW) /HPF Urine Bacteria (Auto) (NEGATIVE) /HPF Urine Culture Reflexed (NO) Urine Glucose (NEGATIVE) mg/dL Influenza Type A Ag (NEGATIVE) Influenza Type B Ag (NEGATIVE) RSV (PCR) (Negative) SARS-CoV-2 (PCR) (NEGATIVE) 0411/13/20 11/13/20 Range/Units 04:04 05:46 07:50 WBC (4.0-10.5) K/mm3 RBC (4.1-5.6) M/mm3 Hgb (12.5-18.0) gm/dl Hct (42-50) % MCV (78-100) fl MCH (26-32) pg MCHC (32-36) g/dl RDW (11.5-14.0) % Plt Count (150-450) K/mm3 MPV (7.5-11.0) fl Gran % (36.0-66.0) % Eos # (Auto) (0-0.5) Absolute Lymphs (auto) (1.0-4.6) Absolute Monos (auto) (0.0-1.3) Lymphocytes % (24.0-44.0) % Monocytes % (0.0-12.0) % Eosinophils % (0.00-5.0) % Basophils % (0.0-0.4) % Absolute Granulocytes (1.4-6.9) Segmented Neutrophils (36.-66.) % Band Neutrophils (0.0-2.0) % Lymphocytes (Manual) (24-44) % Monocytes (Manual) (0.0-12.0) % Basophils # (0-0.4) Platelet Estimate (NORMAL) RBC Morphology Sodium 133 L 133 L (137-145) mmol/L Potassium 3.6 3.4 L (3.5-5.1) mmol/L Chloride 106 105 (98-107) mmol/L Carbon Dioxide 21 L 23 (22-30) mmol/L Anion Gap 9.2 8.6 (5-15) MEQ/L BUN 27 H 24 H (9-20) mg/dL Creatinine 0.69 0.68 (0.66-1.25) mg/dL Estimated GFR > 60.0 > 60.0 ML/MIN Glucose 223 H 219 H (74-106) mg/dL POC Glucometer 217 H (50 to 500) mg/dL Lactic Acid (0.4-2.0) Calcium 8.6 8.8 (8.4-10.2) mg/dL Phosphorus (2.5-4.5) mg/dL Magnesium (1.6-2.3) mg/dL Total Bilirubin 0.30 (0.2-1.3) mg/dL AST 35 (17-59) U/L ALT 45 (0-50) U/L Alkaline Phosphatase 78 (38-126) U/L Troponin I (0.000-0.034) ng/mL Serum Total Protein 4.9 L (6.3-8.2) g/dL Albumin 2.9 L (3.5-5.0) g/dL Urine Color (YELLOW) Urine Appearance (CLEAR) Urine pH (5-6) Ur Specific [place] (1.005-1.025) Urine Protein (Negative) Urine Ketones (NEGATIVE) Urine Blood (0-5) Kaden/ul Urine Nitrite (NEGATIVE) Urine Bilirubin (NEGATIVE) Urine Urobilinogen (0-1) mg/dL Ur Leukocyte Esterase (NEGATIVE) Urine WBC (Auto) (0-5) /HPF Urine RBC (Auto) (0-2) /HPF U Epithel Cells (Auto) (FEW) /HPF Urine Bacteria (Auto) (NEGATIVE) /HPF Urine Culture Reflexed (NO) Urine Glucose (NEGATIVE) mg/dL Influenza Type A Ag (NEGATIVE) Influenza Type B Ag (NEGATIVE) RSV (PCR) (Negative) SARS-CoV-2 (PCR) (NEGATIVE) 11/13/20 Range/Units 11:11 WBC (4.0-10.5) K/mm3 RBC (4.1-5.6) M/mm3 Hgb (12.5-18.0) gm/dl Hct (42-50) % MCV (78-100) fl MCH (26-32) pg MCHC (32-36) g/dl RDW (11.5-14.0) % Plt Count (150-450) K/mm3 MPV (7.5-11.0) fl Gran % (36.0-66.0) % Eos # (Auto) (0-0.5) Absolute Lymphs (auto) (1.0-4.6) Absolute Monos (auto) (0.0-1.3) Lymphocytes % (24.0-44.0) % Monocytes % (0.0-12.0) % Eosinophils % (0.00-5.0) % Basophils % (0.0-0.4) % Absolute Granulocytes (1.4-6.9) Segmented Neutrophils (36.-66.) % Band Neutrophils (0.0-2.0) % Lymphocytes (Manual) (24-44) % Monocytes (Manual) (0.0-12.0) % Basophils # (0-0.4) Platelet Estimate (NORMAL) RBC Morphology Sodium (137-145) mmol/L Potassium (3.5-5.1) mmol/L Chloride (98-107) mmol/L Carbon Dioxide (22-30) mmol/L Anion Gap (5-15) MEQ/L BUN (9-20) mg/dL Creatinine (0.66-1.25) mg/dL Estimated GFR ML/MIN Glucose (74-106) mg/dL POC Glucometer 144 H (50 to 500) mg/dL Lactic Acid (0.4-2.0) Calcium (8.4-10.2) mg/dL Phosphorus (2.5-4.5) mg/dL Magnesium (1.6-2.3) mg/dL Total Bilirubin (0.2-1.3) mg/dL AST (17-59) U/L ALT (0-50) U/L Alkaline Phosphatase (38-126) U/L Troponin I (0.000-0.034) ng/mL Serum Total Protein (6.3-8.2) g/dL Albumin (3.5-5.0) g/dL Urine Color (YELLOW) Urine Appearance (CLEAR) Urine pH (5-6) Ur Specific [place] (1.005-1.025) Urine Protein (Negative) Urine Ketones (NEGATIVE) Urine Blood (0-5) Kaden/ul Urine Nitrite (NEGATIVE) Urine Bilirubin (NEGATIVE) Urine Urobilinogen (0-1) mg/dL Ur Leukocyte Esterase (NEGATIVE) Urine WBC (Auto) (0-5) /HPF Urine RBC (Auto) (0-2) /HPF U Epithel Cells (Auto) (FEW) /HPF Urine Bacteria (Auto) (NEGATIVE) /HPF Urine Culture Reflexed (NO) Urine Glucose (NEGATIVE) mg/dL Influenza Type A Ag (NEGATIVE) Influenza Type B Ag (NEGATIVE) RSV (PCR) (Negative) SARS-CoV-2 (PCR) (NEGATIVE) Accuchecks Date 11/13/20 Date 11/13/20 Date 11/13/20 Date 11/13/20 Date 11/13/20 Date 11/13/20 Date 11/12/20 Date 11/12/20 Time 11:12 Time 05:49 Time 01:57 Time 01:00 Time 00:00 Time 21:30 Time 18:42 Assessment/Plan (1) DKA (diabetic ketoacidoses) Current Visit: Yes Status: Acute Assessment & Plan: Chief Complaint Diagnosis dka Allergies Allergy/AdvReac Type Severity Reaction Status Date / Time lisinopril Allergy Mild Anaphylactic Verified 07/23/20 00:14 Reaction naproxen AdvReac Mild Rash Verified 07/23/20 00:14 Vital Signs (Last 24 hours) Temp Pulse Resp BP Pulse Ox 11/13/20 11:44 98.2 F 82 16 135/77 98 11/13/20 11:15 18 11/13/20 07:32 71 18 11/13/20 05:06 67 16 131/74 98 11/13/20 03:37 79 19 11/13/20 03:36 70 19 114/68 98 11/13/20 02:00 78 18 145/79 99 11/13/20 00:52 77 18 123/79 98 11/12/20 23:39 84 17 98 11/12/20 23:19 87 14 126/72 11/12/20 22:21 97.3 F 94 H 16 124/83 99 11/12/20 21:56 99 11/12/20 21:00 79 16 136/72 99 11/12/20 20:00 88 16 118/73 97 11/12/20 19:00 83 16 147/86 100 11/12/20 18:54 95 H 14 136/88 99 11/12/20 17:57 97.0 F 96 H 20 147/92 100 Home Medications Medication Instructions Recorded Confirmed Last Taken Type Amlodipine Besylate 5 mg 5 mg PO DAILY 11/12/20 11/12/20 11/11/20 10:00 History [Norvasc 5 mg] Diphenoxylate HCl/Atropine 3 udtab PO DAILY 11/12/20 11/12/20 11/11/20 10:00 History [Lomotil] 3 tabs Insulin Glargine,Hum.rec.anlog 30 unit SQ HS 11/13/20 11/13/20 11/12/20 History [Basaglar Kwikpen U-100] Insulin Regular, Human [Novolin R 20 units SQ BID 11/13/20 11/13/20 11/13/20 History Flexpen] Current Medications Generic Name Dose Route Start Last Admin Trade Name Freq PRN Reason Stop Dose Admin Albuterol Sulfate 2.5 mg 11/13/20 07:53 Proventil 2.5 Mg/3 Ml Neb IH 12/13/20 07:52 QID PRN PRN sob Albuterol Sulfate 2 puff 11/13/20 08:08 Ventolin Common Canister IH 12/13/20 08:07 QIDPRN PRN sob Amlodipine Besylate 5 mg 11/13/20 10:00 11/13/20 08:52 Norvasc 5 Mg PO 12/13/20 09:59 5 mg DAILY LEONIE Administration Diphenoxylate HCl/Atropine 3 tablet 11/13/20 10:00 11/13/20 08:52 Lomotil PO 12/13/20 09:59 3 tablet DAILY PRN PRN Administration DIARRHEA Famotidine 40 mg 11/13/20 10:00 11/13/20 08:52 Pepcid 20 Mg PO 12/13/20 09:59 40 mg DAILY LEONIE Administration Insulin Glargine 20 unit 11/13/20 22:00 Lantus Insulin SQ 12/13/20 21:59 HS LEONIE Insulin Human Lispro 0 unit 11/13/20 02:10 11/13/20 10:00 Humalog SQ 12/13/20 02:09 5 unit UD PRN Administration HYPERGLYCEMIA Miscellaneous Information 1 each 11/13/20 08:15 Medication Intervention 12/13/20 08:14 .RT TO CHECK ON LEONIE Ondansetron HCl 4 mg 11/12/20 21:51 Zofran 4 Mg/2 Ml Vial IV 12/12/20 21:50 Q6H PRN PRN NAUSEA/VOMITING Pantoprazole Sodium 40 mg 11/13/20 10:00 11/13/20 08:52 Protonix 40mg Tablet PO 12/13/20 09:59 40 mg DAILY LEONIE Administration Prednisone 40 mg 11/13/20 10:00 11/13/20 08:51 Deltasone 20 Mg PO 11/17/20 10:01 40 mg DAILY LEONIE Administration Fluticasone/Salmeterol 2 puff 11/13/20 08:01 Advair Hfa 230/21 Mcg Common Canister* IH 12/13/20 08:00 BID PRN PRN ASTHMA Discontinued Medications Generic Name Dose Route Start Last Admin Trade Name Freq PRN Reason Stop Dose Admin Sodium Chloride 1,000 mls @ 999 mls/hr 11/12/20 18:18 11/12/20 18:22 Sodium Chloride 0.9% 1000 Ml IV 11/12/20 19:18 999 mls/hr .Q1H1M STA Administration Sodium Chloride Confirm 11/12/20 18:20 Sodium Chloride 0.9% 1000 Ml Administered 11/12/20 18:21 Dose 1,000 mls @ ud .ROUTE .STK-MED ONE Sodium Chloride 1,000 mls @ 999 mls/hr 11/12/20 19:05 11/12/20 19:29 Sodium Chloride 0.9% 1000 Ml IV 11/12/20 20:05 999 mls/hr .Q1H1M STA Administration Sodium Chloride Confirm 11/12/20 19:27 Sodium Chloride 0.9% 1000 Ml Administered 11/12/20 19:28 Dose 1,000 mls @ ud .ROUTE .STK-MED ONE Insulin Human Regular 100 unit 100 mls @ 6 mls/hr 11/12/20 20:12 11/13/20 02:01 / Sodium Chloride IV 12/12/20 20:11 0 unit/hr .[id number] PRN 0 mls/hr DKA/HYPERGLYCEMIA Titration Protocol 6 UNIT/HR Sodium Chloride 1,000 mls @ 999 mls/hr 11/12/20 20:14 11/12/20 20:32 Sodium Chloride 0.9% 1000 Ml IV 11/12/20 21:14 999 mls/hr .Q1H1M STA Administration Sodium Chloride Confirm 11/12/20 20:19 Sodium Chloride 0.9% 100 Ml Ivpb Administered 11/12/20 20:20 Dose 100 mls @ ud IV .STK-MED ONE Sodium Chloride Confirm 11/12/20 20:31 Sodium Chloride 0.9% 1000 Ml Administered 11/12/20 20:32 Dose 1,000 mls @ ud .ROUTE .STK-MED ONE Potassium Chloride/Sodium Chloride 1,000 mls @ 150 mls/hr 11/12/20 22:00 11/13/20 07:16 Sodium Chloride 0.9% W/ 20 Meq Kcl/Liter IV 12/12/20 21:59 Not Given .Q6H40M LEONIE Potassium Chloride/Sodium Chloride 1,000 mls @ 150 mls/hr 11/12/20 22:30 11/01 09/23 22:34 Sodium Chloride 0.9% W/ 40 Meq Kcl 1000ml IV 12/12/20 22:29 150 mls/hr .Q6H40M LEONIE Administration Potassium Chloride/Dextrose/Sod Cl 1,000 mls @ 150 mls/hr 11/12/20 23:30 05:05 D5w/0.45ns W/ 20meq Kcl 1000 Ml IV 12/12/20 23:29 100 mls/hr .Q6H40M LEONIE Administration Potassium Chloride/Sodium Chloride Confirm 11/12/20 22:21 Sodium Chloride 0.9% W/ 40 Meq Kcl 1000ml Administered 11/12/20 22:22 Dose 1,000 mls @ ud IV .STK-MED ONE Insulin Glargine 28 unit 11/13/20 00:15 11/13/20 00:06 Lantus Insulin SQ 11/13/20 00:16 28 unit STAT ONE Administration Insulin Human Regular 10 unit 11/12/20 18:21 11/12/20 18:24 Humulin R SQ 11/12/20 18:22 10 unit STAT ONE Administration Insulin Human Regular Confirm 11/12/20 18:23 Humulin R Administered 11/12/20 18:24 Dose 10 unit .ROUTE .STK-MED ONE Insulin Human Regular 10 unit 11/12/20 19:05 11/12/20 19:21 Humulin R IV 11/12/20 19:06 10 unit STAT ONE Administration Insulin Human Regular Confirm 11/12/20 19:19 Humulin R Administered 11/12/20 19:20 Dose 10 unit .ROUTE .STK-MED ONE Insulin Human Regular Confirm 11/12/20 20:19 Humulin R Administered 11/12/20 20:20 Dose 100 unit .ROUTE .STK-MED ONE Insulin Human Regular 0 unit 11/13/20 02:07 Humulin R SQ 12/13/20 02:06 UD PRN HYPERGLYCEMIA Ondansetron HCl 4 mg 11/12/20 18:58 11/12/20 19:05 Zofran 4 Mg/2 Ml Vial IV 11/12/20 18:59 4 mg STAT ONE Administration Ondansetron HCl Confirm 11/12/20 19:04 Zofran 4 Mg/2 Ml Vial Administered 11/12/20 19:05 Dose 4 mg .ROUTE .STK-MED ONE Pantoprazole Sodium 40 mg 11/13/20 10:00 Protonix 40 Mg Iv IV 12/13/20 09:59 Q24H10 LEONIE Intake & Output (Last 24 hours) 11/11/20 11/12/20 11/13/20 11/14/20 11:59 11:59 11:59 11:59 Intake Total 1520 Output Total 1000 Balance 520 Weight 70.9 kg Laboratory Results (Last 24 hours) 11/13/20 11/13/20 11/13/20 11:11 07:50 05:46 WBC RBC Hgb Hct MCV MCH MCHC RDW Plt Count MPV Gran % Eos # (Auto) Absolute Lymphs (auto) Absolute Monos (auto) Lymphocytes % Monocytes % Eosinophils % Basophils % Absolute Granulocytes Segmented Neutrophils Band Neutrophils Lymphocytes (Manual) Monocytes (Manual) Basophils # Platelet Estimate RBC Morphology Sodium 133 L Potassium 3.4 L Chloride 105 Carbon Dioxide 23 Anion Gap 8.6 BUN 24 H Creatinine 0.68 Estimated GFR > 60.0 Glucose 219 H POC Glucometer 144 H 217 H Lactic Acid Calcium 8.8 Phosphorus Magnesium Total Bilirubin AST ALT Alkaline Phosphatase Troponin I Serum Total Protein Albumin Urine Color Urine Appearance Urine pH Ur Specific [place] Urine Protein Urine Ketones Urine Blood Urine Nitrite Urine Bilirubin Urine Urobilinogen Ur Leukocyte Esterase Urine WBC (Auto) Urine RBC (Auto) U Epithel Cells (Auto) Urine Bacteria (Auto) Urine Culture Reflexed Urine Glucose Influenza Type A Ag Influenza Type B Ag RSV (PCR) SARS-CoV-2 (PCR) 11/13/20 11/13/20 11/13/20 04:04 04:04 01:57 WBC 10.7 H RBC 4.25 Hgb 13.2 Hct 37.2 L MCV 87.5 MCH 31.1 MCHC 35.5 RDW 12.7 Plt Count 238 MPV 9.4 Gran % 77.5 H Eos # (Auto) 0.01 Absolute Lymphs (auto) 1.30 Absolute Monos (auto) 1.07 Lymphocytes % 12.1 L Monocytes % 10.0 Eosinophils % 0.1 Basophils % 0.3 Absolute Granulocytes 8.30 H Segmented Neutrophils Band Neutrophils Lymphocytes (Manual) Monocytes (Manual) Basophils # 0.03 Platelet Estimate RBC Morphology Sodium 133 L Potassium 3.6 Chloride 106 Carbon Dioxide 21 L Anion Gap 9.2 BUN 27 H Creatinine 0.69 Estimated GFR > 60.0 Glucose 223 H POC Glucometer 186 H Lactic Acid Calcium 8.6 Phosphorus Magnesium Total Bilirubin 0.30 AST 35 ALT 45 Alkaline Phosphatase 78 Troponin I Serum Total Protein 4.9 L Albumin 2.9 L Urine Color Urine Appearance Urine pH Ur Specific [place] Urine Protein Urine Ketones Urine Blood Urine Nitrite Urine Bilirubin Urine Urobilinogen Ur Leukocyte Esterase Urine WBC (Auto) Urine RBC (Auto) U Epithel Cells (Auto) Urine Bacteria (Auto) Urine Culture Reflexed Urine Glucose Influenza Type A Ag Influenza Type B Ag RSV (PCR) SARS-CoV-2 (PCR) 11/13/20 11/13/20 11/12/20 01:02 00:14 23:59 WBC RBC Hgb Hct MCV MCH MCHC RDW Plt Count MPV Gran % Eos # (Auto) Absolute Lymphs (auto) Absolute Monos (auto) Lymphocytes % Monocytes % Eosinophils % Basophils % Absolute Granulocytes Segmented Neutrophils Band Neutrophils Lymphocytes (Manual) Monocytes (Manual) Basophils # Platelet Estimate RBC Morphology Sodium 135 L Potassium 3.5 Chloride 107 Carbon Dioxide 21 L Anion Gap 10.6 BUN 30 H Creatinine 0.73 Estimated GFR > 60.0 Glucose 184 H POC Glucometer 190 H 183 H Lactic Acid Calcium 8.7 Phosphorus Magnesium Total Bilirubin AST ALT Alkaline Phosphatase Troponin I Serum Total Protein Albumin Urine Color Urine Appearance Urine pH Ur Specific [place] Urine Protein Urine Ketones Urine Blood Urine Nitrite Urine Bilirubin Urine Urobilinogen Ur Leukocyte Esterase Urine WBC (Auto) Urine RBC (Auto) U Epithel Cells (Auto) Urine Bacteria (Auto) Urine Culture Reflexed Urine Glucose Influenza Type A Ag Influenza Type B Ag RSV (PCR) SARS-CoV-2 (PCR) 11/12/20 11/12/20 11/12/20 22:59 21:31 21:20 WBC RBC Hgb Hct MCV MCH MCHC RDW Plt Count MPV Gran % Eos # (Auto) Absolute Lymphs (auto) Absolute Monos (auto) Lymphocytes % Monocytes % Eosinophils % Basophils % Absolute Granulocytes Segmented Neutrophils Band Neutrophils Lymphocytes (Manual) Monocytes (Manual) Basophils # Platelet Estimate RBC Morphology Sodium 135 L D Potassium 3.5 D Chloride 103 D Carbon Dioxide 19 L Anion Gap 16.3 H BUN 33 H Creatinine 0.89 Estimated GFR > 60.0 Glucose 302 H POC Glucometer 234 H 302 H Lactic Acid Calcium 8.8 Phosphorus Magnesium Total Bilirubin AST ALT Alkaline Phosphatase Troponin I Serum Total Protein Albumin Urine Color Urine Appearance Urine pH Ur Specific [place] Urine Protein Urine Ketones Urine Blood Urine Nitrite Urine Bilirubin Urine Urobilinogen Ur Leukocyte Esterase Urine WBC (Auto) Urine RBC (Auto) U Epithel Cells (Auto) Urine Bacteria (Auto) Urine Culture Reflexed Urine Glucose Influenza Type A Ag Influenza Type B Ag RSV (PCR) SARS-CoV-2 (PCR) 11/12/20 11/12/20 11/12/20 20:53 20:11 20:10 WBC RBC Hgb Hct MCV MCH MCHC RDW Plt Count MPV Gran % Eos # (Auto) Absolute Lymphs (auto) Absolute Monos (auto) Lymphocytes % Monocytes % Eosinophils % Basophils % Absolute Granulocytes Segmented Neutrophils Band Neutrophils Lymphocytes (Manual) Monocytes (Manual) Basophils # Platelet Estimate RBC Morphology Sodium Potassium Chloride Carbon Dioxide Anion Gap BUN Creatinine Estimated GFR Glucose POC Glucometer 521 H* Lactic Acid 1.9 Calcium Phosphorus Magnesium Total Bilirubin AST ALT Alkaline Phosphatase Troponin I Serum Total Protein Albumin Urine Color Urine Appearance Urine pH Ur Specific [place] Urine Protein Urine Ketones Urine Blood Urine Nitrite Urine Bilirubin Urine Urobilinogen Ur Leukocyte Esterase Urine WBC (Auto) Urine RBC (Auto) U Epithel Cells (Auto) Urine Bacteria (Auto) Urine Culture Reflexed Urine Glucose Influenza Type A Ag NEGATIVE Influenza Type B Ag NEGATIVE RSV (PCR) NEGATIVE SARS-CoV-2 (PCR) NEGATIVE 11/12/20 11/12/20 11/12/20 20:00 18:45 18:00 WBC RBC Hgb Hct MCV MCH MCHC RDW Plt Count MPV Gran % Eos # (Auto) Absolute Lymphs (auto) Absolute Monos (auto) Lymphocytes % Monocytes % Eosinophils % Basophils % Absolute Granulocytes Segmented Neutrophils Band Neutrophils Lymphocytes (Manual) Monocytes (Manual) Basophils # Platelet Estimate RBC Morphology Sodium Potassium Chloride Carbon Dioxide Anion Gap BUN Creatinine Estimated GFR Glucose POC Glucometer Lactic Acid 2.1 H Calcium Phosphorus Magnesium 2.5 H Total Bilirubin AST ALT Alkaline Phosphatase Troponin I Serum Total Protein Albumin Urine Color YELLOW Urine Appearance CLEAR Urine pH 5.0 Ur Specific [place] 1.026 Urine Protein NEGATIVE Urine Ketones MODERATE Urine Blood NEGATIVE Urine Nitrite NEGATIVE Urine Bilirubin NEGATIVE Urine Urobilinogen NEGATIVE Ur Leukocyte Esterase NEGATIVE Urine WBC (Auto) NONE Urine RBC (Auto) NONE U Epithel Cells (Auto) NONE Urine Bacteria (Auto) NONE Urine Culture Reflexed NO Urine Glucose >=500 Influenza Type A Ag Influenza Type B Ag RSV (PCR) SARS-CoV-2 (PCR) 11/12/20 11/12/20 11/12/20 18:00 18:00 18:00 WBC RBC Hgb Hct MCV MCH MCHC RDW Plt Count MPV Gran % Eos # (Auto) Absolute Lymphs (auto) Absolute Monos (auto) Lymphocytes % Monocytes % Eosinophils % Basophils % Absolute Granulocytes Segmented Neutrophils Band Neutrophils Lymphocytes (Manual) Monocytes (Manual) Basophils # Platelet Estimate RBC Morphology Sodium 127 L Potassium 4.5 Chloride 91 L Carbon Dioxide 12 L* Anion Gap 27.9 H BUN 39 H Creatinine 1.15 Estimated GFR > 60.0 Glucose 684 H* POC Glucometer Lactic Acid Calcium 9.8 Phosphorus 4.4 Magnesium Total Bilirubin 0.50 AST 20 ALT 58 H Alkaline Phosphatase 105 Troponin I < 0.012 Serum Total Protein 6.6 Albumin 4.4 Urine Color Urine Appearance Urine pH Ur Specific [place] Urine Protein Urine Ketones Urine Blood Urine Nitrite Urine Bilirubin Urine Urobilinogen Ur Leukocyte Esterase Urine WBC (Auto) Urine RBC (Auto) U Epithel Cells (Auto) Urine Bacteria (Auto) Urine Culture Reflexed Urine Glucose Influenza Type A Ag Influenza Type B Ag RSV (PCR) SARS-CoV-2 (PCR) 11/12/20 18:00 WBC 11.4 H RBC 5.30 Hgb 16.2 Hct 46.4 MCV 87.5 MCH 30.6 MCHC 34.9 RDW 12.9 Plt Count 294 MPV 10.4 Gran % Eos # (Auto) Absolute Lymphs (auto) Absolute Monos (auto) Lymphocytes % Monocytes % Eosinophils % Basophils % Absolute Granulocytes Segmented Neutrophils 85 H Band Neutrophils 3 H Lymphocytes (Manual) 9 L Monocytes (Manual) 3 Basophils # Platelet Estimate NORMAL RBC Morphology NORMAL Sodium Potassium Chloride Carbon Dioxide Anion Gap BUN Creatinine Estimated GFR Glucose POC Glucometer Lactic Acid Calcium Phosphorus Magnesium Total Bilirubin AST ALT Alkaline Phosphatase Troponin I Serum Total Protein Albumin Urine Color Urine Appearance Urine pH Ur Specific [place] Urine Protein Urine Ketones Urine Blood Urine Nitrite Urine Bilirubin Urine Urobilinogen Ur Leukocyte Esterase Urine WBC (Auto) Urine RBC (Auto) U Epithel Cells (Auto) Urine Bacteria (Auto) Urine Culture Reflexed Urine Glucose Influenza Type A Ag Influenza Type B Ag RSV (PCR) SARS-CoV-2 (PCR) Orders (Last 24 hours) Category Date Time Status Bedrest with BRP/BSC ROUTINE Activity 11/12/20 21:52 Active Code Status Order ROUTINE Care 11/12/20 21:51 Active EKG-ER Only STAT Care 11/12/20 18:18 Completed IV Care Q6H Care 11/12/20 21:51 Active IV Insertion STAT Care 11/12/20 18:18 Completed Intake and Output Q12H Care 11/12/20 21:51 Active POCT Glucose Check ACHS Care 11/13/20 10:[address] in Observation ROUTINE Care 11/12/20 21:51 Active Telemetry q6h Care 11/13/20 07:44 Active Consistent Carbohydrate Diet 2000 Calorie Diet 11/13/20 Breakfast Active NPO Diet 11/12/20 21:52 Completed Nutritional Admission Screen ONCE Diet 11/12/20 22:40 Completed Discharge Routine Discharge 11/13/20 Ordered BMP Q4H Lab 11/13/20 00:14 Completed BMP Q4H Lab 11/13/20 07:50 Completed BMP Stat Lab 11/12/20 21:20 Completed CBC W DIFF Stat Lab 11/12/20 18:00 Completed CBC W DIFF Urgent Lab 11/12/20 21:51 Completed CMP AM.LAB Lab 11/13/20 04:04 Completed CMP Stat Lab 11/12/20 18:00 Completed Lactic Acid Stat Lab 11/12/20 18:45 Completed Lactic Acid Stat Lab 11/12/20 20:53 Completed MAGNESIUM Stat Lab 11/12/20 18:00 Completed Manual Differential NC Stat Lab 11/12/20 18:00 Completed PHOSPHOROUS Stat Lab 11/12/20 18:00 Completed POCT GLUCOSE Stat Lab 11/12/20 20:11 Completed POCT GLUCOSE Stat Lab 11/12/20 21:31 Completed POCT GLUCOSE Stat Lab 11/12/20 22:59 Completed POCT GLUCOSE Stat Lab 11/12/20 23:59 Completed POCT GLUCOSE Stat Lab 11/13/20 01:02 Completed POCT GLUCOSE Stat Lab 11/13/20 01:57 Completed POCT GLUCOSE Stat Lab 11/13/20 05:46 Completed POCT GLUCOSE Stat Lab 11/13/20 11:11 Completed TROPONIN Q3H Lab 11/12/20 18:00 Completed UA W/RFX UR CULTURE Stat Lab 11/12/20 20:00 Completed Albuterol 2.5 mg/3 ml Neb [Proventil 2.5 mg/3 ml Neb Med 11/13/20 07:53 Active ] 2.5 mg IH QID PRN PRN Albuterol Common Canister [Ventolin Common Canister* Med 11/13/20 08:08 Active ] 2 puff IH QIDPRN PRN Amlodipine Besylate 5 mg [Norvasc 5 mg] Med 11/13/20 10:00 Active 5 mg PO DAILY D5w-0.45NACL W/ 20Meq KCl [D5W/0.45NS W/ 20mEq KCl 1000 Med 11/12/20 23:30 Discontinued ML] 1,000 ml IV 150 mls/hr Diphenoxylate HCl/Atropine [Lomotil] Med 11/13/20 10:00 Active 3 tablet PO DAILY PRN PRN Famotidine 20 mg [Pepcid 20 MG] Med 11/13/20 10:00 Active 40 mg PO DAILY Fluticasone/Salmeterol [Advair Hfa Mcg Med 11/13/20 08:01 Active COMMON CANISTER*] 2 puff IH BID PRN PRN Insulin Glargine [Lantus Insulin] Med 11/13/20 22:00 Active 20 unit SQ HS Insulin Glargine [Lantus Insulin] Med 11/13/20 00:15 Discontinued 28 unit SQ STAT ONE Insulin Lispro [Humalog] Med 11/13/20 02:10 Active See Dose Instructions SQ UD PRN Insulin Regular, Human [Humulin R] Med 11/12/20 18:23 Discontinued 10 unit .ROUTE .STK-MED ONE Insulin Regular, Human [Humulin R] Med 11/12/20 19:19 Discontinued 10 unit .ROUTE .STK-MED ONE Insulin Regular, Human [Humulin R] Med 11/12/20 19:05 Discontinued 10 unit IV STAT ONE Insulin Regular, Human [Humulin R] Med 11/12/20 18:21 Discontinued 10 unit SQ STAT ONE Insulin Regular, Human [Humulin R] Med 11/12/20 20:19 Discontinued 100 unit .ROUTE .STK-MED ONE Insulin Regular, Human [Humulin R] Med 11/13/20 02:07 Discontinued See Dose Instructions SQ UD PRN Medication Intervention Med 11/13/20 08:15 Active 1 each .RT TO CHECK ON NaCl 0.9% 1000 ml + KCl 20 Meq [Sodium Chloride 0.9% W/ Med 11/12/20 22:00 Discontinued 20 mEq KCl/LITER] 1,000 ml IV 150 mls/hr NaCl 0.9% 1000 ml + KCl 40 Meq [SODIUM CHLORIDE 0.9% W/ Med 11/12/20 22:30 Discontinued 40 mEq KCL 1000ML] 1,000 ml IV 150 mls/hr NaCl 0.9% 1000 ml + KCl 40 Meq [SODIUM CHLORIDE 0.9% W/ Med 11/12/20 22:21 Discontinued 40 mEq KCL 1000ML] 1,000 ml IV UD NaCl 0.9% 1000 ml [Sodium Chloride 0.9% 1000 ML] 1,000 Med 11/12/20 18:20 Discontinued ml .ROUTE UD NaCl 0.9% 1000 ml [Sodium Chloride 0.9% 1000 ML] 1,000 Med 11/12/20 19:27 Discontinued ml .ROUTE UD NaCl 0.9% 1000 ml [Sodium Chloride 0.9% 1000 ML] 1,000 Med 11/12/20 20:31 Discontinued ml .ROUTE UD NaCl 0.9% 1000 ml [Sodium Chloride 0.9% 1000 ML] 1,000 Med 11/12/20 18:18 Discontinued ml IV 999 mls/hr NaCl 0.9% 1000 ml [Sodium Chloride 0.9% 1000 ML] 1,000 Med 11/12/20 19:05 Discontinued ml IV 999 mls/hr NaCl 0.9% 1000 ml [Sodium Chloride 0.9% 1000 ML] 1,000 Med 11/12/20 20:14 Discontinued ml IV 999 mls/hr NaCl 0.9% 100Ml [Sodium Chloride 0.9% 100 ML IVPB] 100 Med 11/12/20 20:12 Discontinued ml Insulin Regular, Human [Humulin R] 100 unit IV 6 unit/hr NaCl 0.9% 100Ml [Sodium Chloride 0.9% 100 ML IVPB] 100 Med 11/12/20 20:19 Discontinued ml IV UD Ondansetron HCl 4 mg/2 ml [Zofran 4 MG/2 ML VIAL] Med 11/12/20 19:04 Di scontinued 4 mg .ROUTE .STK-MED ONE Ondansetron HCl 4 mg/2 ml [Zofran 4 MG/2 ML VIAL] Med 11/12/20 21:51 Active 4 mg IV Q6H PRN PRN Ondansetron HCl 4 mg/2 ml [Zofran 4 MG/2 ML VIAL] Med 11/12/20 18:58 Discontinued 4 mg IV STAT ONE PANTOPRAZOLE 40 mg Tablet [Protonix 40MG Tablet] Med 11/13/20 10:00 Active 40 mg PO DAILY Pantoprazole 40 mg [Protonix 40 mg IV] Med 11/13/20 10:00 Discontinued 40 mg IV Q24H10 Prednisone 20 mg [Deltasone 20 mg] Med 11/13/20 10:00 Active 40 mg PO DAILY Transfer Order Routine Transfer 11/13/20 Completed Patient Care Notes (Last 24 hours) 11/13/20 09:26 Nursing Note by Maria Luisa Koenig DR NOTIFIED THAT HIS PATIENT WAS ADMITTED. Initialized on 11/13/20 09:26 - END OF NOTE Code(s): E11.10 - TYPE 2 DIABETES MELLITUS WITH KETOACIDOSIS WITHOUT COMA Hospital Summary - Hospital Course Hospital Course: Last Vital Signs Temp 98.2 F 11/13/20 11:44 Pulse 82 11/13/20 11:44 Resp 16 11/13/20 11:44 BP 135/77 11/13/20 11:44 Pulse Ox 98 11/13/20 11:44 Allergies lisinopril Allergy (Mild, Verified 07/23/20 00:14) Anaphylactic Reaction naproxen Adverse Reaction (Mild, Verified 07/23/20 00:14) Rash Active Medications Albuterol Sulfate (Proventil 2.5 Mg/3 Ml Neb) 2.5 mg IH QID PRN PRN PRN Reason: sob Stop: 12/13/20 07:52 Albuterol Sulfate (Ventolin Common Canister) 2 puff IH QIDPRN PRN PRN Reason: sob Stop: 12/13/20 08:07 Amlodipine Besylate (Norvasc 5 Mg) 5 mg PO DAILY LEONIE Stop: 12/13/20 09:59 Last Admin: 11/13/20 08:52 Dose: 5 mg Documented by: Diphenoxylate HCl/Atropine (Lomotil) 3 tablet PO DAILY PRN PRN PRN Reason: DIARRHEA Stop: 12/13/20 09:59 Last Admin: 11/13/20 08:52 Dose: 3 tablet Documented by: Famotidine (Pepcid 20 Mg) 40 mg PO DAILY LEONIE Stop: 12/13/20 09:59 Last Admin: 11/13/20 08:52 Dose: 40 mg Documented by: Insulin Glargine (Lantus Insulin) 20 unit SQ HS LEONIE Stop: 12/13/20 21:59 Insulin Human Lispro (Humalog) 0 unit SQ UD PRN PRN Reason: HYPERGLYCEMIA Stop: 12/13/20 02:09 Last Admin: 11/13/20 10:00 Dose: 5 unit Documented by: Miscellaneous Information (Medication Intervention) 1 each MC .RT TO CHECK ON [facility] Stop: 12/13/20 08:14 Ondansetron HCl (Zofran 4 Mg/2 Ml Vial) 4 mg IV Q6H PRN PRN PRN Reason: NAUSEA/VOMITING Stop: 12/12/20 21:50 Pantoprazole Sodium (Protonix 40mg Tablet) 40 mg PO DAILY [facility] Stop: 12/13/20 09:59 Last Admin: 11/13/20 08:52 Dose: 40 mg Documented by: Prednisone (Deltasone 20 Mg) 40 mg PO DAILY [facility] Stop: 11/17/20 10:01 Last Admin: 11/13/20 08:51 Dose: 40 mg Documented by: Fluticasone/Salmeterol (Advair Hfa 230/21 Mcg Common Canister*) 2 puff IH BID PRN PRN PRN Reason: ASTHMA Stop: 12/13/20 08:00 Intake & Output 11/13/20 11/14/20 11:59 11:59 Intake Total 1520 Output Total 1000 Balance 520 Weight 70.9 kg Orders 11/12/20 21:51 Code Status Order ROUTINE IV Care Q6H Intake and Output Q12H Place in Observation ROUTINE 11/12/20 21:52 Bedrest with BRP/BSC ROUTINE 11/13/20 Discharge Routine 11/13/20 Breakfast Consistent Carbohydrate Diet 2000 Calorie 11/13/20 07:44 Telemetry q6h 11/13/20 07:53 Albuterol 2.5 mg/3 ml Neb [Proventil 2.5 mg/3 ml Neb] 2.5 mg IH QID PRN PRN 11/13/20 08:01 Fluticasone/Salmeterol 230/21 [Advair Hfa 230/21 Mcg COMMON CANISTER*] 2 puff IH BID PRN PRN 11/13/20 08:08 Albuterol Common Canister [Ventolin Common Canister] 2 puff IH QIDPRN PRN 11/13/20 08:15 Medication Intervention 1 each .RT TO CHECK ON 11/13/20 10:00 POCT Glucose Check ACHS Amlodipine Besylate 5 mg [Norvasc 5 mg] 5 mg PO DAILY Diphenoxylate HCl/Atropine [Lomotil] 3 tablet PO DAILY PRN PRN Famotidine 20 mg [Pepcid 20 MG] 40 mg PO DAILY PANTOPRAZOLE 40 mg Tablet [Protonix 40MG Tablet] 40 mg PO DAILY Prednisone 20 mg [Deltasone 20 mg] 40 mg PO DAILY 11/13/20 22:00 Insulin Glargine [Lantus Insulin] 20 unit SQ HS Lab Tests 11/12/20 11/12/20 11/12/20 18:00 18:00 18:00 WBC 11.4 H RBC 5.30 Hgb 16.2 Hct 46.4 MCV 87.5 MCH 30.6 MCHC 34.9 RDW 12.9 Plt Count 294 MPV 10.4 Gran % Eos # (Auto) Absolute Lymphs (auto) Absolute Monos (auto) Lymphocytes % Monocytes % Eosinophils % Basophils % Absolute Granulocytes Segmented Neutrophils 85 H Band Neutrophils 3 H Lymphocytes (Manual) 9 L Monocytes (Manual) 3 Basophils # Platelet Estimate NORMAL RBC Morphology NORMAL Sodium 127 L Potassium 4.5 Chloride 91 L Carbon Dioxide 12 L* Anion Gap 27.9 H BUN 39 H Creatinine 1.15 Estimated GFR > 60.0 Glucose 684 H* POC Glucometer Lactic Acid Calcium 9.8 Phosphorus Magnesium Total Bilirubin 0.50 AST 20 ALT 58 H Alkaline Phosphatase 105 Troponin I < 0.012 Serum Total Protein 6.6 Albumin 4.4 Urine Color Urine Appearance Urine pH Ur Specific [place] Urine Protein Urine Ketones Urine Blood Urine Nitrite Urine Bilirubin Urine Urobilinogen Ur Leukocyte Esterase Urine WBC (Auto) Urine RBC (Auto) U Epithel Cells (Auto) Urine Bacteria (Auto) Urine Culture Reflexed Urine Glucose Influenza Type A Ag Influenza Type B Ag RSV (PCR) SARS-CoV-2 (PCR) 11/12/20 11/12/20 11/12/20 18:00 18:00 18:45 WBC RBC Hgb Hct MCV MCH MCHC RDW Plt Count MPV Gran % Eos # (Auto) Absolute Lymphs (auto) Absolute Monos (auto) Lymphocytes % Monocytes % Eosinophils % Basophils % Absolute Granulocytes Segmented Neutrophils Band Neutrophils Lymphocytes (Manual) Monocytes (Manual) Basophils # Platelet Estimate RBC Morphology Sodium Potassium Chloride Carbon Dioxide Anion Gap BUN Creatinine Estimated GFR Glucose POC Glucometer Lactic Acid 2.1 H Calcium Phosphorus 4.4 Magnesium 2.5 H Total Bilirubin AST ALT Alkaline Phosphatase Troponin I Serum Total Protein Albumin Urine Color Urine Appearance Urine pH Ur Specific [place] Urine Protein Urine Ketones Urine Blood Urine Nitrite Urine Bilirubin Urine Urobilinogen Ur Leukocyte Esterase Urine WBC (Auto) Urine RBC (Auto) U Epithel Cells (Auto) Urine Bacteria (Auto) Urine Culture Reflexed Urine Glucose Influenza Type A Ag Influenza Type B Ag RSV (PCR) SARS-CoV-2 (PCR) 11/12/20 11/12/20 11/12/20 20:00 20:10 20:11 WBC RBC Hgb Hct MCV MCH MCHC RDW Plt Count MPV Gran % Eos # (Auto) Absolute Lymphs (auto) Absolute Monos (auto) Lymphocytes % Monocytes % Eosinophils % Basophils % Absolute Granulocytes Segmented Neutrophils Band Neutrophils Lymphocytes (Manual) Monocytes (Manual) Basophils # Platelet Estimate RBC Morphology Sodium Potassium Chloride Carbon Dioxide Anion Gap BUN Creatinine Estimated GFR Glucose POC Glucometer 521 H* Lactic Acid Calcium Phosphorus Magnesium Total Bilirubin AST ALT Alkaline Phosphatase Troponin I Serum Total Protein Albumin Urine Color YELLOW Urine Appearance CLEAR Urine pH 5.0 Ur Specific [place] 1.026 Urine Protein NEGATIVE Urine Ketones MODERATE Urine Blood NEGATIVE Urine Nitrite NEGATIVE Urine Bilirubin NEGATIVE Urine Urobilinogen NEGATIVE Ur Leukocyte Esterase NEGATIVE Urine WBC (Auto) NONE Urine RBC (Auto) NONE U Epithel Cells (Auto) NONE Urine Bacteria (Auto) NONE Urine Culture Reflexed NO Urine Glucose >=500 Influenza Type A Ag NEGATIVE Influenza Type B Ag NEGATIVE RSV (PCR) NEGATIVE SARS-CoV-2 (PCR) NEGATIVE 11/12/20 11/12/20 11/12/20 20:53 21:20 21:31 WBC RBC Hgb Hct MCV MCH MCHC RDW Plt Count MPV Gran % Eos # (Auto) Absolute Lymphs (auto) Absolute Monos (auto) Lymphocytes % Monocytes % Eosinophils % Basophils % Absolute Granulocytes Segmented Neutrophils Band Neutrophils Lymphocytes (Manual) Monocytes (Manual) Basophils # Platelet Estimate RBC Morphology Sodium 135 L D Potassium 3.5 D Chloride 103 D Carbon Dioxide 19 L Anion Gap 16.3 H BUN 33 H Creatinine 0.89 Estimated GFR > 60.0 Glucose 302 H POC Glucometer 302 H Lactic Acid 1.9 Calcium 8.8 Phosphorus Magnesium Total Bilirubin AST ALT Alkaline Phosphatase Troponin I Serum Total Protein Albumin Urine Color Urine Appearance Urine pH Ur Specific [place] Urine Protein Urine Ketones Urine Blood Urine Nitrite Urine Bilirubin Urine Urobilinogen Ur Leukocyte Esterase Urine WBC (Auto) Urine RBC (Auto) U Epithel Cells (Auto) Urine Bacteria (Auto) Urine Culture Reflexed Urine Glucose Influenza Type A Ag Influenza Type B Ag RSV (PCR) SARS-CoV-2 (PCR) 11/12/20 11/12/20 11/13/20 22:59 23:59 00:14 WBC RBC Hgb Hct MCV MCH MCHC RDW Plt Count MPV Gran % Eos # (Auto) Absolute Lymphs (auto) Absolute Monos (auto) Lymphocytes % Monocytes % Eosinophils % Basophils % Absolute Granulocytes Segmented Neutrophils Band Neutrophils Lymphocytes (Manual) Monocytes (Manual) Basophils # Platelet Estimate RBC Morphology Sodium 135 L Potassium 3.5 Chloride 107 Carbon Dioxide 21 L Anion Gap 10.6 BUN 30 H Creatinine 0.73 Estimated GFR > 60.0 Glucose 184 H POC Glucometer 234 H 183 H Lactic Acid Calcium 8.7 Phosphorus Magnesium Total Bilirubin AST ALT Alkaline Phosphatase Troponin I Serum Total Protein Albumin Urine Color Urine Appearance Urine pH Ur Specific [place] Urine Protein Urine Ketones Urine Blood Urine Nitrite Urine Bilirubin Urine Urobilinogen Ur Leukocyte Esterase Urine WBC (Auto) Urine RBC (Auto) U Epithel Cells (Auto) Urine Bacteria (Auto) Urine Culture Reflexed Urine Glucose Influenza Type A Ag Influenza Type B Ag RSV (PCR) SARS-CoV-2 (PCR) 11/13/20 11/13/20 11/13/20 01:02 01:57 04:04 WBC 10.7 H RBC 4.25 Hgb 13.2 Hct 37.2 L MCV 87.5 MCH 31.1 MCHC 35.5 RDW 12.7 Plt Count 238 MPV 9.4 Gran % 77.5 H Eos # (Auto) 0.01 Absolute Lymphs (auto) 1.30 Absolute Monos (auto) 1.07 Lymphocytes % 12.1 L Monocytes % 10.0 Eosinophils % 0.1 Basophils % 0.3 Absolute Granulocytes 8.30 H Segmented Neutrophils Band Neutrophils Lymphocytes (Manual) Monocytes (Manual) Basophils # 0.03 Platelet Estimate RBC Morphology Sodium Potassium Chloride Carbon Dioxide Anion Gap BUN Creatinine Estimated GFR Glucose POC Glucometer 190 H 186 H Lactic Acid Calcium Phosphorus Magnesium Total Bilirubin AST ALT Alkaline Phosphatase Troponin I Serum Total Protein Albumin Urine Color Urine Appearance Urine pH Ur Specific [place] Urine Protein Urine Ketones Urine Blood Urine Nitrite Urine Bilirubin Urine Urobilinogen Ur Leukocyte Esterase Urine WBC (Auto) Urine RBC (Auto) U Epithel Cells (Auto) Urine Bacteria (Auto) Urine Culture Reflexed Urine Glucose Influenza Type A Ag Influenza Type B Ag RSV (PCR) SARS-CoV-2 (PCR) 11/13/20 11/13/20 11/13/20 04:04 05:46 07:50 WBC RBC Hgb Hct MCV MCH MCHC RDW Plt Count MPV Gran % Eos # (Auto) Absolute Lymphs (auto) Absolute Monos (auto) Lymphocytes % Monocytes % Eosinophils % Basophils % Absolute Granulocytes Segmented Neutrophils Band Neutrophils Lymphocytes (Manual) Monocytes (Manual) Basophils # Platelet Estimate RBC Morphology Sodium 133 L 133 L Potassium 3.6 3.4 L Chloride 106 105 Carbon Dioxide 21 L 23 Anion Gap 9.2 8.6 BUN 27 H 24 H Creatinine 0.69 0.68 Estimated GFR > 60.0 > 60.0 Glucose 223 H 219 H POC Glucometer 217 H Lactic Acid Calcium 8.6 8.8 Phosphorus Magnesium Total Bilirubin 0.30 AST 35 ALT 45 Alkaline Phosphatase 78 Troponin I Serum Total Protein 4.9 L Albumin 2.9 L Urine Color Urine Appearance Urine pH Ur Specific [place] Urine Protein Urine Ketones Urine Blood Urine Nitrite Urine Bilirubin Urine Urobilinogen Ur Leukocyte Esterase Urine WBC (Auto) Urine RBC (Auto) U Epithel Cells (Auto) Urine Bacteria (Auto) Urine Culture Reflexed Urine Glucose Influenza Type A Ag Influenza Type B Ag RSV (PCR) SARS-CoV-2 (PCR) 11/13/20 11:11 WBC RBC Hgb Hct MCV MCH MCHC RDW Plt Count MPV Gran % Eos # (Auto) Absolute Lymphs (auto) Absolute Monos (auto) Lymphocytes % Monocytes % Eosinophils % Basophils % Absolute Granulocytes Segmented Neutrophils Band Neutrophils Lymphocytes (Manual) Monocytes (Manual) Basophils # Platelet Estimate RBC Morphology Sodium Potassium Chloride Carbon Dioxide Anion Gap BUN Creatinine Estimated GFR Glucose POC Glucometer 144 H Lactic Acid Calcium Phosphorus Magnesium Total Bilirubin AST ALT Alkaline Phosphatase Troponin I Serum Total Protein Albumin Urine Color Urine Appearance Urine pH Ur Specific [place] Urine Protein Urine Ketones Urine Blood Urine Nitrite Urine Bilirubin Urine Urobilinogen Ur Leukocyte Esterase Urine WBC (Auto) Urine RBC (Auto) U Epithel Cells (Auto) Urine Bacteria (Auto) Urine Culture Reflexed Urine Glucose Influenza Type A Ag Influenza Type B Ag RSV (PCR) SARS-CoV-2 (PCR) - Vitals & Intake/Output Vital Signs: Vital Signs Temperature 98.2 F 11/13/20 11:44 Pulse Rate 82 11/13/20 11:44 Respiratory Rate 16 11/13/20 11:44 Blood Pressure 135/77 11/13/20 11:44 O2 Sat by Pulse Oximetry 98 11/13/20 11:44 Intake & Output: Intake & Output 11/11/20 11/12/20 11/13/20 11/14/20 11:59 11:59 11:59 11:59 Intake Total 1520 Output Total 1000 Balance 520 Weight 70.9 kg - Lab Result Diagrams: 11/13/20 04:04 11/13/20 07:50 Lab Results-Last 24 Hrs: Lab Results-Last 24 Hours 11/12/20 11/12/20 11/12/20 Range/Units 18:00 18:00 18:00 WBC 11.4 H (4.0-10.5) K/mm3 RBC 5.30 (4.1-5.6) M/mm3 Hgb 16.2 (12.5-18.0) gm/dl Hct 46.4 (42-50) % MCV 87.5 (78-100) fl MCH 30.6 (26-32) pg MCHC 34.9 (32-36) g/dl RDW 12.9 (11.5-14.0) % Plt Count 294 (150-450) K/mm3 MPV 10.4 (7.5-11.0) fl Gran % (36.0-66.0) % Eos # (Auto) (0-0.5) Absolute Lymphs (auto) (1.0-4.6) Absolute Monos (auto) (0.0-1.3) Lymphocytes % (24.0-44.0) % Monocytes % (0.0-12.0) % Eosinophils % (0.00-5.0) % Basophils % (0.0-0.4) % Absolute Granulocytes (1.4-6.9) Segmented Neutrophils 85 H (36.-66.) % Band Neutrophils 3 H (0.0-2.0) % Lymphocytes (Manual) 9 L (24-44) % Monocytes (Manual) 3 (0.0-12.0) % Basophils # (0-0.4) Platelet Estimate NORMAL (NORMAL) RBC Morphology NORMAL Sodium 127 L (137-145) mmol/L Potassium 4.5 (3.5-5.1) mmol/L Chloride 91 L (98-107) mmol/L Carbon Dioxide 12 L* (22-30) mmol/L Anion Gap 27.9 H (5-15) MEQ/L BUN 39 H (9-20) mg/dL Creatinine 1.15 (0.66-1.25) mg/dL Estimated GFR > 60.0 ML/MIN Glucose 684 H* (74-106) mg/dL POC Glucometer (50 to 500) mg/dL Lactic Acid (0.4-2.0) Calcium 9.8 (8.4-10.2) mg/dL Phosphorus (2.5-4.5) mg/dL Magnesium (1.6-2.3) mg/dL Total Bilirubin 0.50 (0.2-1.3) mg/dL AST 20 (17-59) U/L ALT 58 H (0-50) U/L Alkaline Phosphatase 105 (38-126) U/L Troponin I < 0.012 (0.000-0.034) ng/mL Serum Total Protein 6.6 (6.3-8.2) g/dL Albumin 4.4 (3.5-5.0) g/dL Urine Color (YELLOW) Urine Appearance (CLEAR) Urine pH (5-6) Ur Specific [place] (1.005-1.025) Urine Protein (Negative) Urine Ketones (NEGATIVE) Urine Blood (0-5) Kaden/ul Urine Nitrite (NEGATIVE) Urine Bilirubin (NEGATIVE) Urine Urobilinogen (0-1) mg/dL Ur Leukocyte Esterase (NEGATIVE) Urine WBC (Auto) (0-5) /HPF Urine RBC (Auto) (0-2) /HPF U Epithel Cells (Auto) (FEW) /HPF Urine Bacteria (Auto) (NEGATIVE) /HPF Urine Culture Reflexed (NO) Urine Glucose (NEGATIVE) mg/dL Influenza Type A Ag (NEGATIVE) Influenza Type B Ag (NEGATIVE) RSV (PCR) (Negative) SARS-CoV-2 (PCR) (NEGATIVE) 11/12/20 11/12/20 11/12/20 Range/Units 18:00 18:00 18:45 WBC (4.0-10.5) K/mm3 RBC (4.1-5.6) M/mm3 Hgb (12.5-18.0) gm/dl Hct (42-50) % MCV (78-100) fl MCH (26-32) pg MCHC (32-36) g/dl RDW (11.5-14.0) % Plt Count (150-450) K/mm3 MPV (7.5-11.0) fl Gran % (36.0-66.0) % Eos # (Auto) (0-0.5) Absolute Lymphs (auto) (1.0-4.6) Absolute Monos (auto) (0.0-1.3) Lymphocytes % (24.0-44.0) % Monocytes % (0.0-12.0) % Eosinophils % (0.00-5.0) % Basophils % (0.0-0.4) % Absolute Granulocytes (1.4-6.9) Segmented Neutrophils (36.-66.) % Band Neutrophils (0.0-2.0) % Lymphocytes (Manual) (24-44) % Monocytes (Manual) (0.0-12.0) % Basophils # (0-0.4) Platelet Estimate (NORMAL) RBC Morphology Sodium (137-145) mmol/L Potassium (3.5-5.1) mmol/L Chloride (98-107) mmol/L Carbon Dioxide (22-30) mmol/L Anion Gap (5-15) MEQ/L BUN (9-20) mg/dL Creatinine (0.66-1.25) mg/dL Estimated GFR ML/MIN Glucose (74-106) mg/dL POC Glucometer (50 to 500) mg/dL Lactic Acid 2.1 H (0.4-2.0) Calcium (8.4-10.2) mg/dL Phosphorus 4.4 (2.5-4.5) mg/dL Magnesium 2.5 H (1.6-2.3) mg/dL Total Bilirubin (0.2-1.3) mg/dL AST (17-59) U/L ALT (0-50) U/L Alkaline Phosphatase (38-126) U/L Troponin I (0.000-0.034) ng/mL Serum Total Protein (6.3-8.2) g/dL Albumin (3.5-5.0) g/dL Urine Color (YELLOW) Urine Appearance (CLEAR) Urine pH (5-6) Ur Specific [place] (1.005-1.025) Urine Protein (Negative) Urine Ketones (NEGATIVE) Urine Blood (0-5) Kaden/ul Urine Nitrite (NEGATIVE) Urine Bilirubin (NEGATIVE) Urine Urobilinogen (0-1) mg/dL Ur Leukocyte Esterase (NEGATIVE) Urine WBC (Auto) (0-5) /HPF Urine RBC (Auto) (0-2) /HPF U Epithel Cells (Auto) (FEW) /HPF Urine Bacteria (Auto) (NEGATIVE) /HPF Urine Culture Reflexed (NO) Urine Glucose (NEGATIVE) mg/dL Influenza Type A Ag (NEGATIVE) Influenza Type B Ag (NEGATIVE) RSV (PCR) (Negative) SARS-CoV-2 (PCR) (NEGATIVE) 11/12/20 11/12/20 11/12/20 Range/Units 20:00 20:10 20:11 WBC (4.0-10.5) K/mm3 RBC (4.1-5.6) M/mm3 Hgb (12.5-18.0) gm/dl Hct (42-50) % MCV (78-100) fl MCH (26-32) pg MCHC (32-36) g/dl RDW (11.5-14.0) % Plt Count (150-450) K/mm3 MPV (7.5-11.0) fl Gran % (36.0-66.0) % Eos # (Auto) (0-0.5) Absolute Lymphs (auto) (1.0-4.6) Absolute Monos (auto) (0.0-1.3) Lymphocytes % (24.0-44.0) % Monocytes % (0.0-12.0) % Eosinophils % (0.00-5.0) % Basophils % (0.0-0.4) % Absolute Granulocytes (1.4-6.9) Segmented Neutrophils (36.-66.) % Band Neutrophils (0.0-2.0) % Lymphocytes (Manual) (24-44) % Monocytes (Manual) (0.0-12.0) % Basophils # (0-0.4) Platelet Estimate (NORMAL) RBC Morphology Sodium (137-145) mmol/L Potassium (3.5-5.1) mmol/L Chloride (98-107) mmol/L Carbon Dioxide (22-30) mmol/L Anion Gap (5-15) MEQ/L BUN (9-20) mg/dL Creatinine (0.66-1.25) mg/dL Estimated GFR ML/MIN Glucose (74-106) mg/dL POC Glucometer 521 H* (50 to 500) mg/dL Lactic Acid (0.4-2.0) Calcium (8.4-10.2) mg/dL Phosphorus (2.5-4.5) mg/dL Magnesium (1.6-2.3) mg/dL Total Bilirubin (0.2-1.3) mg/dL AST (17-59) U/L ALT (0-50) U/L Alkaline Phosphatase (38-126) U/L Troponin I (0.000-0.034) ng/mL Serum Total Protein (6.3-8.2) g/dL Albumin (3.5-5.0) g/dL Urine Color YELLOW (YELLOW) Urine Appearance CLEAR (CLEAR) Urine pH 5.0 (5-6) Ur Specific [place] 1.026 (1.005-1.025) Urine Protein NEGATIVE (Negative) Urine Ketones MODERATE (NEGATIVE) Urine Blood NEGATIVE (0-5) Kaden/ul Urine Nitrite NEGATIVE (NEGATIVE) Urine Bilirubin NEGATIVE (NEGATIVE) Urine Urobilinogen NEGATIVE (0-1) mg/dL Ur Leukocyte Esterase NEGATIVE (NEGATIVE) Urine WBC (Auto) NONE (0-5) /HPF Urine RBC (Auto) NONE (0-2) /HPF U Epithel Cells (Auto) NONE (FEW) /HPF Urine Bacteria (Auto) NONE (NEGATIVE) /HPF Urine Culture Reflexed NO (NO) Urine Glucose >=500 (NEGATIVE) mg/dL Influenza Type A Ag NEGATIVE (NEGATIVE) Influenza Type B Ag NEGATIVE (NEGATIVE) RSV (PCR) NEGATIVE (Negative) SARS-CoV-2 (PCR) NEGATIVE (NEGATIVE) 11/12/20 11/12/20 11/12/20 Range/Units 20:53 21:20 21:31 WBC (4.0-10.5) K/mm3 RBC (4.1-5.6) M/mm3 Hgb (12.5-18.0) gm/dl Hct (42-50) % MCV (78-100) fl MCH (26-32) pg MCHC (32-36) g/dl RDW (11.5-14.0) % Plt Count (150-450) K/mm3 MPV (7.5-11.0) fl Gran % (36.0-66.0) % Eos # (Auto) (0-0.5) Absolute Lymphs (auto) (1.0-4.6) Absolute Monos (auto) (0.0-1.3) Lymphocytes % (24.0-44.0) % Monocytes % (0.0-12.0) % Eosinophils % (0.00-5.0) % Basophils % (0.0-0.4) % Absolute Granulocytes (1.4-6.9) Segmented Neutrophils (36.-66.) % Band Neutrophils (0.0-2.0) % Lymphocytes (Manual) (24-44) % Monocytes (Manual) (0.0-12.0) % Basophils # (0-0.4) Platelet Estimate (NORMAL) RBC Morphology Sodium 135 L D (137-145) mmol/L Potassium 3.5 D (3.5-5.1) mmol/L Chloride 103 D (98-107) mmol/L Carbon Dioxide 19 L (22-30) mmol/L Anion Gap 16.3 H (5-15) MEQ/L BUN 33 H (9-20) mg/dL Creatinine 0.89 (0.66-1.25) mg/dL Estimated GFR > 60.0 ML/MIN Glucose 302 H (74-106) mg/dL POC Glucometer 302 H (50 to 500) mg/dL Lactic Acid 1.9 (0.4-2.0) Calcium 8.8 (8.4-10.2) mg/dL Phosphorus (2.5-4.5) mg/dL Magnesium (1.6-2.3) mg/dL Total Bilirubin (0.2-1.3) mg/dL AST (17-59) U/L ALT (0-50) U/L Alkaline Phosphatase (38-126) U/L Troponin I (0.000-0.034) ng/mL Serum Total Protein (6.3-8.2) g/dL Albumin (3.5-5.0) g/dL Urine Color (YELLOW) Urine Appearance (CLEAR) Urine pH (5-6) Ur Specific [place] (1.005-1.025) Urine Protein (Negative) Urine Ketones (NEGATIVE) Urine Blood (0-5) Kaden/ul Urine Nitrite (NEGATIVE) Urine Bilirubin (NEGATIVE) Urine Urobilinogen (0-1) mg/dL Ur Leukocyte Esterase (NEGATIVE) Urine WBC (Auto) (0-5) /HPF Urine RBC (Auto) (0-2) /HPF U Epithel Cells (Auto) (FEW) /HPF Urine Bacteria (Auto) (NEGATIVE) /HPF Urine Culture Reflexed (NO) Urine Glucose (NEGATIVE) mg/dL Influenza Type A Ag (NEGATIVE) Influenza Type B Ag (NEGATIVE) RSV (PCR) (Negative) SARS-CoV-2 (PCR) (NEGATIVE) 11/12/20 11/12/20 11/13/20 Range/Units 22:59 23:59 00:14 WBC (4.0-10.5) K/mm3 RBC (4.1-5.6) M/mm3 Hgb (12.5-18.0) gm/dl Hct (42-50) % MCV (78-100) fl MCH (26-32) pg MCHC (32-36) g/dl RDW (11.5-14.0) % Plt Count (150-450) K/mm3 MPV (7.5-11.0) fl Gran % (36.0-66.0) % Eos # (Auto) (0-0.5) Absolute Lymphs (auto) (1.0-4.6) Absolute Monos (auto) (0.0-1.3) Lymphocytes % (24.0-44.0) % Monocytes % (0.0-12.0) % Eosinophils % (0.00-5.0) % Basophils % (0.0-0.4) % Absolute Granulocytes (1.4-6.9) Segmented Neutrophils (36.-66.) % Band Neutrophils (0.0-2.0) % Lymphocytes (Manual) (24-44) % Monocytes (Manual) (0.0-12.0) % Basophils # (0-0.4) Platelet Estimate (NORMAL) RBC Morphology Sodium 135 L (137-145) mmol/L Potassium 3.5 (3.5-5.1) mmol/L Chloride 107 (98-107) mmol/L Carbon Dioxide 21 L (22-30) mmol/L Anion Gap 10.6 (5-15) MEQ/L BUN 30 H (9-20) mg/dL Creatinine 0.73 (0.66-1.25) mg/dL Estimated GFR > 60.0 ML/MIN Glucose 184 H (74-106) mg/dL POC Glucometer 234 H 183 H (50 to 500) mg/dL Lactic Acid (0.4-2.0) Calcium 8.7 (8.4-10.2) mg/dL Phosphorus (2.5-4.5) mg/dL Magnesium (1.6-2.3) mg/dL Total Bilirubin (0.2-1.3) mg/dL AST (17-59) U/L ALT (0-50) U/L Alkaline Phosphatase (38-126) U/L Troponin I (0.000-0.034) ng/mL Serum Total Protein (6.3-8.2) g/dL Albumin (3.5-5.0) g/dL Urine Color (YELLOW) Urine Appearance (CLEAR) Urine pH (5-6) Ur Specific [place] (1.005-1.025) Urine Protein (Negative) Urine Ketones (NEGATIVE) Urine Blood (0-5) Kaden/ul Urine Nitrite (NEGATIVE) Urine Bilirubin (NEGATIVE) Urine Urobilinogen (0-1) mg/dL Ur Leukocyte Esterase (NEGATIVE) Urine WBC (Auto) (0-5) /HPF Urine RBC (Auto) (0-2) /HPF U Epithel Cells (Auto) (FEW) /HPF Urine Bacteria (Auto) (NEGATIVE) /HPF Urine Culture Reflexed (NO) Urine Glucose (NEGATIVE) mg/dL Influenza Type A Ag (NEGATIVE) Influenza Type B Ag (NEGATIVE) RSV (PCR) (Negative) SARS-CoV-2 (PCR) (NEGATIVE) 11/13/20 11/13/20 11/13/20 Range/Units 01:02 01:57 04:04 WBC 10.7 H (4.0-10.5) K/mm3 RBC 4.25 (4.1-5.6) M/mm3 Hgb 13.2 (12.5-18.0) gm/dl Hct 37.2 L (42-50) % MCV 87.5 (78-100) fl MCH 31.1 (26-32) pg MCHC 35.5 (32-36) g/dl RDW 12.7 (11.5-14.0) % Plt Count 238 (150-450) K/mm3 MPV 9.4 (7.5-11.0) fl Gran % 77.5 H (36.0-66.0) % Eos # (Auto) 0.01 (0-0.5) Absolute Lymphs (auto) 1.30 (1.0-4.6) Absolute Monos (auto) 1.07 (0.0-1.3) Lymphocytes % 12.1 L (24.0-44.0) % Monocytes % 10.0 (0.0-12.0) % Eosinophils % 0.1 (0.00-5.0) % Basophils % 0.3 (0.0-0.4) % Absolute Granulocytes 8.30 H (1.4-6.9) Segmented Neutrophils (36.-66.) % Band Neutrophils (0.0-2.0) % Lymphocytes (Manual) (24-44) % Monocytes (Manual) (0.0-12.0) % Basophils # 0.03 (0-0.4) Platelet Estimate (NORMAL) RBC Morphology Sodium (137-145) mmol/L Potassium (3.5-5.1) mmol/L Chloride (98-107) mmol/L Carbon Dioxide (22-30) mmol/L Anion Gap (5-15) MEQ/L BUN (9-20) mg/dL Creatinine (0.66-1.25) mg/dL Estimated GFR ML/MIN Glucose (74-106) mg/dL POC Glucometer 190 H 186 H (50 to 500) mg/dL Lactic Acid (0.4-2.0) Calcium (8.4-10.2) mg/dL Phosphorus (2.5-4.5) mg/dL Magnesium (1.6-2.3) mg/dL Total Bilirubin (0.2-1.3) mg/dL AST (17-59) U/L ALT (0-50) U/L Alkaline Phosphatase (38-126) U/L Troponin I (0.000-0.034) ng/mL Serum Total Protein (6.3-8.2) g/dL Albumin (3.5-5.0) g/dL Urine Color (YELLOW) Urine Appearance (CLEAR) Urine pH (5-6) Ur Specific [place] (1.005-1.025) Urine Protein (Negative) Urine Ketones (NEGATIVE) Urine Blood (0-5) Kaden/ul Urine Nitrite (NEGATIVE) Urine Bilirubin (NEGATIVE) Urine Urobilinogen (0-1) mg/dL Ur Leukocyte Esterase (NEGATIVE) Urine WBC (Auto) (0-5) /HPF Urine RBC (Auto) (0-2) /HPF U Epithel Cells (Auto) (FEW) /HPF Urine Bacteria (Auto) (NEGATIVE) /HPF Urine Culture Reflexed (NO) Urine Glucose (NEGATIVE) mg/dL Influenza Type A Ag (NEGATIVE) Influenza Type B Ag (NEGATIVE) RSV (PCR) (Negative) SARS-CoV-2 (PCR) (NEGATIVE) 11/13/20 11/13/20 11/13/20 Range/Units 04:04 05:46 07:50 WBC (4.0-10.5) K/mm3 RBC (4.1-5.6) M/mm3 Hgb (12.5-18.0) gm/dl Hct (42-50) % MCV (78-100) fl MCH (26-32) pg MCHC (32-36) g/dl RDW (11.5-14.0) % Plt Count (150-450) K/mm3 MPV (7.5-11.0) fl Gran % (36.0-66.0) % Eos # (Auto) (0-0.5) Absolute Lymphs (auto) (1.0-4.6) Absolute Monos (auto) (0.0-1.3) Lymphocytes % (24.0-44.0) % Monocytes % (0.0-12.0) % Eosinophils % (0.00-5.0) % Basophils % (0.0-0.4) % Absolute Granulocytes (1.4-6.9) Segmented Neutrophils (36.-66.) % Band Neutrophils (0.0-2.0) % Lymphocytes (Manual) (24-44) % Monocytes (Manual) (0.0-12.0) % Basophils # (0-0.4) Platelet Estimate (NORMAL) RBC Morphology Sodium 133 L 133 L (137-145) mmol/L Potassium 3.6 3.4 L (3.5-5.1) mmol/L Chloride 106 105 (98-107) mmol/L Carbon Dioxide 21 L 23 (22-30) mmol/L Anion Gap 9.2 8.6 (5-15) MEQ/L BUN 27 H 24 H (9-20) mg/dL Creatinine 0.69 0.68 (0.66-1.25) mg/dL Estimated GFR > 60.0 > 60.0 ML/MIN Glucose 223 H 219 H (74-106) mg/dL POC Glucometer 217 H (50 to 500) mg/dL Lactic Acid (0.4-2.0) Calcium 8.6 8.8 (8.4-10.2) mg/dL Phosphorus (2.5-4.5) mg/dL Magnesium (1.6-2.3) mg/dL Total Bilirubin 0.30 (0.2-1.3) mg/dL AST 35 (17-59) U/L ALT 45 (0-50) U/L Alkaline Phosphatase 78 (38-126) U/L Troponin I (0.000-0.034) ng/mL Serum Total Protein 4.9 L (6.3-8.2) g/dL Albumin 2.9 L (3.5-5.0) g/dL Urine Color (YELLOW) Urine Appearance (CLEAR) Urine pH (5-6) Ur Specific [place] (1.005-1.025) Urine Protein (Negative) Urine Ketones (NEGATIVE) Urine Blood (0-5) Kaden/ul Urine Nitrite (NEGATIVE) Urine Bilirubin (NEGATIVE) Urine Urobilinogen (0-1) mg/dL Ur Leukocyte Esterase (NEGATIVE) Urine WBC (Auto) (0-5) /HPF Urine RBC (Auto) (0-2) /HPF U Epithel Cells (Auto) (FEW) /HPF Urine Bacteria (Auto) (NEGATIVE) /HPF Urine Culture Reflexed (NO) Urine Glucose (NEGATIVE) mg/dL Influenza Type A Ag (NEGATIVE) Influenza Type B Ag (NEGATIVE) RSV (PCR) (Negative) SARS-CoV-2 (PCR) (NEGATIVE) 11/13/20 Range/Units 11:11 WBC (4.0-10.5) K/mm3 RBC (4.1-5.6) M/mm3 Hgb (12.5-18.0) gm/dl Hct (42-50) % MCV (78-100) fl MCH (26-32) pg MCHC (32-36) g/dl RDW (11.5-14.0) % Plt Count (150-450) K/mm3 MPV (7.5-11.0) fl Gran % (36.0-66.0) % Eos # (Auto) (0-0.5) Absolute Lymphs (auto) (1.0-4.6) Absolute Monos (auto) (0.0-1.3) Lymphocytes % (24.0-44.0) % Monocytes % (0.0-12.0) % Eosinophils % (0.00-5.0) % Basophils % (0.0-0.4) % Absolute Granulocytes (1.4-6.9) Segmented Neutrophils (36.-66.) % Band Neutrophils (0.0-2.0) % Lymphocytes (Manual) (24-44) % Monocytes (Manual) (0.0-12.0) % Basophils # (0-0.4) Platelet Estimate (NORMAL) RBC Morphology Sodium (137-145) mmol/L Potassium (3.5-5.1) mmol/L Chloride (98-107) mmol/L Carbon Dioxide (22-30) mmol/L Anion Gap (5-15) MEQ/L BUN (9-20) mg/dL Creatinine (0.66-1.25) mg/dL Estimated GFR ML/MIN Glucose (74-106) mg/dL POC Glucometer 144 H (50 to 500) mg/dL Lactic Acid (0.4-2.0) Calcium (8.4-10.2) mg/dL Phosphorus (2.5-4.5) mg/dL Magnesium (1.6-2.3) mg/dL Total Bilirubin (0.2-1.3) mg/dL AST (17-59) U/L ALT (0-50) U/L Alkaline Phosphatase (38-126) U/L Troponin I (0.000-0.034) ng/mL Serum Total Protein (6.3-8.2) g/dL Albumin (3.5-5.0) g/dL Urine Color (YELLOW) Urine Appearance (CLEAR) Urine pH (5-6) Ur Specific [place] (1.005-1.025) Urine Protein (Negative) Urine Ketones (NEGATIVE) Urine Blood (0-5) Kaden/ul Urine Nitrite (NEGATIVE) Urine Bilirubin (NEGATIVE) Urine Urobilinogen (0-1) mg/dL Ur Leukocyte Esterase (NEGATIVE) Urine WBC (Auto) (0-5) /HPF Urine RBC (Auto) (0-2) /HPF U Epithel Cells (Auto) (FEW) /HPF Urine Bacteria (Auto) (NEGATIVE) /HPF Urine Culture Reflexed (NO) Urine Glucose (NEGATIVE) mg/dL Influenza Type A Ag (NEGATIVE) Influenza Type B Ag (NEGATIVE) RSV (PCR) (Negative) SARS-CoV-2 (PCR) (NEGATIVE) Micro Results-Entire Visit: Accuchecks Date 11/13/20 Date 11/13/20 Date 11/13/20 Date 11/13/20 Date 11/13/20 Date 11/13/20 Date 11/12/20 Date 11/12/20 Time 11:12 Time 05:49 Time 01:57 Time 01:00 Time 00:00 Time 21:30 Time 18:42 - Discharge Discharge Date: 11/13/20 Disposition: Home, Self-Care Condition: Stable Prescriptions: Continue Fluticasone/Salmeterol 500/50* [Advair 500-50 Diskus] 1 puff IH BID PRN PRN Reason: asthma Albuterol Sulfate [Proair Hfa] 2 puffs IH QIDPRN PRN PRN Reason: sob Albuterol 2.5 mg/3 ml Neb [Proventil 2.5 mg/3 ml Neb] 3 ml IH QID PRN PRN PRN Reason: sob Omeprazole 40 mg PO DAILY Famotidine [Pepcid] 40 mg PO DAILY Fluticasone/Umeclidin/Vilanter [Trelegy Ellipta 100-62.5-25] 1 puff IH DAILY predniSONE [Prednisone] 20 mg PO UD #60 tablet Diphenoxylate HCl/Atropine [Lomotil] 3 udtab PO DAILY Amlodipine Besylate 5 mg [Norvasc 5 mg] 5 mg PO DAILY Insulin Glargine,Hum.rec.anlog [Basaglar Kwikpen U-100] 30 unit SQ HS Insulin Regular, Human [Novolin R Flexpen] 20 units SQ BID Instructions: Diabetic Ketoacidosis (DC) Follow up with: HARRISON VENTURA MD [Primary Care Provider] - 11/20/20 3:30 pm (WILL BE SEEN AT THE [facility] OFFICE)
[2020-11-13] MEDS ORDERED: INSULIN GLARGINE HUM REC ANLOG 20 UNIT SQ SCH (22:00)
[2020-11-13] MEDS ORDERED: Lantus Insulin SQ SCH (22:00)
== END 2020-11-13 12:33 | disposition home or self-care (01) ==
LOC: ED 17:50 → ICU 22:02
PROVIDERS: ADMIT General Practice; ATTEND General Practice
DX: E11.10 Type 2 diabetes mellitus with ketoacidosis without coma (principal); R11.2 Nausea with vomiting, unspecified; Z79.899 Other long term (current) drug therapy; Z79.4 Long term (current) use of insulin; Z85.118 Personal history of other malignant neoplasm of bronchus and lung; Z20.828 Contact with and (suspected) exposure to other viral communicable diseases
CPT/HCPCS: 0241U; 36000; 36415; 80048; 80053; 81001; 82947; 83605; 83735; 84100; 84484; 85025; 93005; 93268; 96365; 96372; 96374; 96376; 99284; 99291; G0378; 96375; J1815; J1817; J2405; A9270-GY

== ENCOUNTER 2020-11-28 17:55 | Observation (INO) | payer BC ==
[2020-11-28] MEDS ORDERED: DUONEB 0.5-3 MG/3 ml Neb IH ONE ×2 (18:24→18:31)
[2020-11-28] MEDS ORDERED: solu-MEDROL 125 MG IV ONE (18:24)
[2020-11-28] MEDS ORDERED: BABY ASPIRIN 81 MG CHEW PO ONE (18:26)
[2020-11-28] MEDS ORDERED: BABY ASPIRIN 81 MG CHEW ONE (18:30)
[2020-11-28] MEDS ORDERED: solu-MEDROL 125 MG ONE (18:30)
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
[2020-11-28 18:37] LABS: Absolute Neutrophil Ct (ANC) 5.16 (1.4-6.9); BASOPHIL % 0.7 % (0.0-0.4); Basophil (Absolute #) 0.05 (0-0.4); Eosinophil (Absolute #) 0.08 (0-0.5); Hematocrit 38.7 % (42-50); Hemoglobin 12.6 gm/dl (12.5-18.0); Lymphocyte (Absolute #) 1.41 (1.0-4.6); Lymphocytes % 18.4 % (24.0-44.0); Mean Cell Volume 94.6 fl (78-100); Mean Corpuscular Hemoglobin 30.8 pg (26-32); Mean Corpuscular Hgb Concent. 32.6 g/dl (32-36); Mean Platelet Volume 9.1 fl (7.5-11.0); Monocyte (Absolute #) 0.95 (0.0-1.3); Monocytes % 12.4 % (0.0-12.0); Neutrophil % 67.5 % (36.0-66.0); Platelet Count 272 K/mm3 (150-450); Red Blood Count 4.09 M/mm3 (4.1-5.6); Red Cell Distribution Width 13.4 % (11.5-14.0); White Blood Count 7.7 K/mm3 (4.0-10.5)
[2020-11-28 18:50] LABS: ALBUMIN 4.2 g/dL (3.5-5.0); ALKALINE PHOSPHATASE 177 U/L (38-126); ANION GAP 13.3 MEQ/L (5-15); BLOOD UREA NITROGEN 16 mg/dL (9-20); CHLORIDE 100 mmol/L (98-107); Calcium 9.4 mg/dL (8.4-10.2); Carbon Dioxide 26 mmol/L (22-30); Creatinine 1 0.59 mg/dL (0.66-1.25); EST GLOMERULAR FILTRATION RATE > 60.0 ML/MIN; Glucose 269 mg/dL (74-106); MAGNESIUM 1.8 mg/dL (1.6-2.3); NT PRO BNP 163 pg/mL (0-900); Potassium 3.6 mmol/L (3.5-5.1); SGOT/AST 36 U/L (17-59); SGPT/ALT 47 U/L (0-50); SODIUM 136 mmol/L (137-145); Total Protein 6.9 g/dL (6.3-8.2)
[2020-11-28] MEDS ORDERED: ROCEPHIN 1 Gm-D5w 50 ml Bag** 1 G/50 ML IVPB IV STA (19:38)
[2020-11-28] MEDS ORDERED: Zithromax 500 MG/ 250 ML NaCl Premix 500 MG/250 ML IVPB IV STA (19:38)
[2020-11-28] MEDS ORDERED: ROCEPHIN 1 Gm-D5w 50 ml Bag** 1 G/50 ML IVPB IV ONE (21:02)
[2020-11-28] MEDS ORDERED: Zithromax 500 MG/ 250 ML NaCl Premix 500 MG/250 ML IVPB IV ONE (21:02)
[2020-11-28 21:03] LABS: INFLUENZA A NEGATIVE (NEGATIVE); INFLUENZA B NEGATIVE (NEGATIVE); RESPIRATORY SYNCTIAL VIRUS NEGATIVE (Negative)
[2020-11-28] MEDS ORDERED: Pepcid 20 MG VIAL IV SCH (22:07)
[2020-11-28] MEDS ORDERED: TYLENOL 325 MG PO PRN (22:07)
[2020-11-28] MEDS ORDERED: MORPHINE SULFATE 2 MG INJ IV PRN (22:07)
[2020-11-28] MEDS ORDERED: HUMALOG SQ PRN (22:07)
[2020-11-28] MEDS ORDERED: DUONEB 0.5-3 MG/3 ml Neb IH PRN (22:49)
[2020-11-28] MEDS ORDERED: DUONEB 0.5-3 MG/3 ml Neb IH SCH (23:00)
[2020-11-28] MEDS ORDERED: Lantus Insulin SQ SCH (23:00)
[2020-11-28] MEDS: HUMALOG SQ PRN (23:12)
[2020-11-28] MEDS: solu-MEDROL 125 MG IV SCH (23:13)
[2020-11-29] MEDS: solu-MEDROL 125 MG IV SCH (03:59)
[2020-11-29 05:21] LABS: Absolute Neutrophil Ct (ANC) 6.39 (1.4-6.9); BASOPHIL % 0.4 % (0.0-0.4); Basophil (Absolute #) 0.03 (0-0.4); Eosinophil (Absolute #) 0 (0-0.5); Hematocrit 34.9 % (42-50); Hemoglobin 11.5 gm/dl (12.5-18.0); Lymphocytes % 8.4 % (24.0-44.0); Mean Cell Volume 93.8 fl (78-100); Mean Corpuscular Hemoglobin 30.9 pg (26-32); Monocyte (Absolute #) 0.12 (0.0-1.3); Monocytes % 1.7 % (0.0-12.0); Neutrophil % 89.5 % (36.0-66.0); Platelet Count 241 K/mm3 (150-450); Red Blood Count 3.72 M/mm3 (4.1-5.6); Red Cell Distribution Width 13.3 % (11.5-14.0); White Blood Count 7.1 K/mm3 (4.0-10.5)
[2020-11-29 05:40] LABS: ALBUMIN 3.5 g/dL (3.5-5.0); ALKALINE PHOSPHATASE 146 U/L (38-126); ANION GAP 12.8 MEQ/L (5-15); BLOOD UREA NITROGEN 20 mg/dL (9-20); CHLORIDE 100 mmol/L (98-107); Calcium 8.9 mg/dL (8.4-10.2); Carbon Dioxide 23 mmol/L (22-30); Creatinine 1 0.58 mg/dL (0.66-1.25); EST GLOMERULAR FILTRATION RATE > 60.0 ML/MIN; Glucose 446 mg/dL (74-106); SGOT/AST 26 U/L (17-59); SGPT/ALT 40 U/L (0-50); SODIUM 132 mmol/L (137-145)
[2020-11-29] MEDS ORDERED: INSULIN REGULAR HUMAN SQ PRN (07:43)
[2020-11-29] MEDS ORDERED: ADVAIR 500-50 DISKUS IH PRN (07:43)
[2020-11-29] MEDS ORDERED: Ventolin Hfa MDI IH PRN (07:43)
[2020-11-29] MEDS ORDERED: NON-FORMULARY ITEM (Fluticasone/Umeclidin/Vilanter [Trelegy Ellipta 100-62.5-25] 1 PUFF) IH PRN (07:43)
[2020-11-29] MEDS ORDERED: PROVENTIL 2.5 MG/3 ML NEB IH PRN (07:43)
[2020-11-29] MEDS ORDERED: Advair Hfa 230/21 Mcg COMMON CANISTER IH PRN (07:47)
[2020-11-29] MEDS ORDERED: VENTOLIN COMMON CANISTER IH PRN (07:49)
[2020-11-29] MEDS ORDERED: HUMULIN R SQ PRN (07:49)
[2020-11-29] MEDS: HUMALOG SQ PRN ×2 (07:58→11:59)
[2020-11-29] MEDS ORDERED: MEDICATION INTERVENTION MC SCH (08:00)
--- NOTE | 2020-11-29 08:50 | XRAY ---
Indication: Recurrent pneumonia. History right lung cancer. Multiple contiguous axial images obtained through the chest prior to and following 80 cc Isovue 370 contrast as ordered. Comparison: September 11, 2020. Stable right midlung pleural parenchymal fibrosis/scarring and suture material. Also stable right mid lung calcified granuloma. No new pulmonary mass/nodule, infiltrate, or effusion. Heart is not enlarged. Aorta is normal in course and caliber. Stable tiny right hilar calcified node. No pathologic mediastinal/hilar lymphadenopathy. Bony thorax intact again with mild degenerative changes throughout the spine. Limited upper abdomen again demonstrates cholecystectomy clips. Impression: 1. Stable right lung postsurgical changes and old granulomatous disease. 2. Remaining CT chest with and without contrast exam is negative.
--- NOTE | 2020-11-29 08:52 | XRAY ---
Indication: Short of breath. History right lung cancer with surgery. Comparison: May 17, 2018. Portable chest demonstrates new right midlung suture material with lung volume loss consistent with patient's surgical history. Stable right mid lung calcified granuloma. Remaining heart and lungs unremarkable. Bony thorax intact.
[2020-11-29] MEDS ORDERED: Lomotil PO SCH (10:00)
[2020-11-29] MEDS ORDERED: NON-FORMULARY ITEM (Omeprazole [Omeprazole] 40 MG) PO SCH (10:00)
[2020-11-29] MEDS ORDERED: Protonix 40MG Tablet PO SCH (10:00)
[2020-11-29] MEDS ORDERED: Pepcid 20 MG PO SCH (10:00)
[2020-11-29] MEDS ORDERED: NORVASC 5 MG PO SCH (10:00)
[2020-11-29] MEDS ORDERED: NON-FORMULARY ITEM (Famotidine [Pepcid] 40 MG) PO SCH (10:00)
[2020-11-29 11:49] VITALS: BP 134/81; PULSE 76; O2SAT 97
[2020-11-29] MEDS ORDERED: solu-MEDROL 125 MG IV SCH ×2 (12:00→18:00)
[2020-11-29] MEDS ORDERED: Zithromax 500 MG/ 250 ML NaCl Premix 500 MG/250 ML IVPB IV SCH (22:00)
[2020-11-29] MEDS ORDERED: ROCEPHIN 1 Gm-D5w 50 ml Bag** 1 G/50 ML IVPB IV SCH (22:00)
--- NOTE | 2020-11-30 11:58 | PCM.SSS ---
History of Present Illness - Chief Complaint Chief Complaint: shortness of breath for 1 day History of Present Illness: is a 55 year old male.with history of COPD, lung cancer status post lobectomy, hypertension, hyperlipidemia, diabetes mellitus presented to the ER with chief complaint of increasing shortness of breath for the last 2 days. Patient report initially started with a cough minimally productive and gradually worsening to productive of yellow-green sputum moderate in amount. Initially patient was feeling short of breath with activity and now having coughing bouts and feeling short of breath even at resting. He also started to have low-grade fever and chills feeling this afternoon. He has been using his inhaler with no significant relief. Denies any chest pain but has generalized soreness. Denies any sick contact. Timing/Duration: day(s) (2), intermittent, gradual onset, worse Activities at Onset: rest Severity of Dyspnea-Max: moderate Severity of Dyspnea-Current: moderate Modifying Factors: Improves With: albuterol inhaler. Worsens With: coughing, exertion Associated Symptoms: anxiety, cough, chest pain/discomfort, fever, ankle swelling, lightheadedness, painful breathing, productive cough, tightness - Review of Systems Constitutional: No Fever, No Chills Eyes: No Symptoms Ears, Nose, & Throat: No Symptoms Respiratory: Short Of Breath, No Cough Cardiac: No Chest Pain, No Edema, No Syncope Abdominal/Gastrointestinal: No Abdominal Pain, No Nausea, No Vomiting, No Diarrhea Genitourinary Symptoms: No Dysuria Musculoskeletal: No Back Pain, No Neck Pain Skin: No Rash Neurological: No Dizziness, No Focal Weakness, No Sensory Changes Psychological: No Symptoms Endocrine: No Symptoms Hematologic/Lymphatic: No Symptoms Immunological/Allergic: No Symptoms Medications & Allergies Home Medications: Home Medication List Fluticasone/Salmeterol 500/50* [Advair 500-50 Diskus] 1 puff IH BID PRN PRN 02/26/15 [History Confirmed 11/28/20] Albuterol 2.5 mg/3 ml Neb [Proventil 2.5 mg/3 ml Neb] 3 ml IH QID PRN PRN 10/15/16 [History Confirmed 11/28/20] Albuterol Sulfate [Proair Hfa] 2 puffs IH QIDPRN PRN 10/15/16 [History Confirmed 11/28/20] Famotidine [Pepcid] 40 mg PO DAILY 07/23/20 [History Confirmed 11/28/20] Fluticasone/Umeclidin/Vilanter [Trelegy Ellipta 100-62.5-25] 1 puff IH DAILY PRN PRN 07/23/20 [History Confirmed 11/28/20] Omeprazole 40 mg PO DAILY 07/23/20 [History Confirmed 11/28/20] Amlodipine Besylate 5 mg [Norvasc 5 mg] 5 mg PO DAILY 11/12/20 [History Confirmed 11/28/20] Diphenoxylate HCl/Atropine [Lomotil] 3 udtab PO DAILY 11/12/20 [History Confirmed 11/28/20] Insulin Glargine,Hum.rec.anlog [Basaglar Kwikpen U-100] 20 unit SQ HS 11/13/20 [History Confirmed 11/28/20] Insulin Regular, Human [Novolin R Flexpen] 20 units SQ DAILY PRN PRN 11/13/20 [History Confirmed 11/28/20] Methylprednisolone Packet [Medrol Dosepack] 4 mg PO UD #30 packet 11/29/20 [Rx] Allergies/Adverse Reactions: Allergies Allergy/AdvReac Type Severity Reaction Status Date / Time lisinopril Allergy Mild Anaphylactic Verified 11/28/20 22:13 Reaction naproxen AdvReac Mild Rash Verified 11/28/20 22:13 - Past Medical History Past Medical History: Yes Neurological History: No Pertinent History ENT History: Cataracts Cardiac History: No Pertinent History Respiratory History: Asthma, COPD, Lung Cancer, Pneumonia, Other Endocrine Medical History: Diabetes Type II Musculoskelatal History: Fractures GI Medical History: Gallbladder Disease, Irritable Bowel History: No Pertinent History Pyscho-Social History: No Pertinent History Male Reproductive Disorders: No Pertinent History Comment: HAS BEEN IN REMISSION FOR LUNG CANCER X 10 YEARS. HX FRACTURE RIBS AND T6, T7 6 YEARS AGO AFTER FALL FROM LADDER. 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 both cataracts removed- suboptical implant in - Social History Smoking Status: Never smoker Exposure to second hand smoke: No Alcohol: None Drug Use: none Significant Family History: no pertinent family hx - Physical Exam General Appearance: no apparent distress, alert Neurologic Exam: alert, oriented x 3, cooperative, normal mood/affect, nml cerebellar function, nml station & gait, sensation nml, No motor deficits Eye Exam: PERRL/EOMI, eyes nml inspection Ears, Nose, Throat Exam: normal ENT inspection, TMs normal, pharynx normal, moist mucous membranes Neck Exam: normal inspection, non-tender, supple, full range of motion Respiratory Exam: normal breath sounds, lungs clear, No respiratory distress Cardiovascular Exam: regular rate/rhythm, normal heart sounds, normal peripheral pulses Gastrointestinal/Abdomen Exam: soft, normal bowel sounds, No tenderness, No mass Back Exam: normal inspection, normal range of motion, No CVA tenderness, No vertebral tenderness Extremity Exam: normal inspection, normal range of motion, pelvis stable Skin Exam: normal color, warm, dry, No rash Lymphatic Exam: No adenopathy Results - Labs Lab/Micro Results: Lab Results-Last 24 Hours 11/29/20 Range/Units 08:00 Hemoglobin A1c > 14.00 H (4.5-6.0) % - Radiology Impressions Radiology Exams & Impressions: Radiology Procedures Category Date Time Status CHEST 1 VIEW (PORTABLE) Stat Exams 11/28/20 18:25 Completed CHEST W/WO CONTRAST [CT] Stat Exams 11/28/20 20:01 Completed Assessment/Plan (1) Viral bronchitis Status: Acute Assessment & Plan: Last Vital Signs Temp 97.6 F 11/29/20 11:48 Pulse 76 11/29/20 11:48 Resp 16 11/29/20 11:48 BP 134/81 11/29/20 11:48 Pulse Ox 97 11/29/20 11:48 Allergies lisinopril Allergy (Mild, Verified 11/28/20 22:13) Anaphylactic Reaction naproxen Adverse Reaction (Mild, Verified 11/28/20 22:13) Rash Intake & Output 11/29/20 11/30/20 11:59 11:59 Intake Total 2480 360 Output Total 3400 1900 Balance -920 -1540 Weight 77 kg Lab Tests 11/29/20 08:00 Hemoglobin A1c > 14.00 H Code(s): J20.8 - ACUTE BRONCHITIS DUE TO OTHER SPECIFIED ORGANISMS (2) Hx of diabetes mellitus Status: Acute Code(s): Z86.39 - PERSONAL HISTORY OF ENDO, NUTRITIONAL AND METABOLIC DISEASE (3) Hypertension Status: Acute Code(s): I10 - ESSENTIAL (PRIMARY) HYPERTENSION Hospital Summary - Hospital Course Hospital Course: Chief Complaint Diagnosis pneumonia Allergies Allergy/AdvReac Type Severity Reaction Status Date / Time lisinopril Allergy Mild Anaphylactic Verified 11/28/20 22:13 Reaction naproxen AdvReac Mild Rash Verified 11/28/20 22:13 Home Medications Medication Instructions Recorded Confirmed Last Taken Type Methylprednisolone Packet 4 mg PO UD #30 packet 11/29/20 Unknown Rx [Medrol Dosepack] Current Medications Discontinued Medications Generic Name Dose Route Start Last Admin Trade Name Freq PRN Reason Stop Dose Admin Acetaminophen 650 mg 11/28/20 22:07 11/29/20 08:01 Tylenol 325 Mg PO 12/28/20 22:06 650 mg Q4H PRN PRN Administration PAIN AND/OR FEVER Albuterol Sulfate 2.5 mg 11/29/20 07:43 Proventil 2.5 Mg/3 Ml Neb IH 12/29/20 07:42 QID PRN PRN sob Albuterol Sulfate 2 puff 11/29/20 07:49 Ventolin Common Canister IH 12/29/20 07:48 QIDPRN PRN sob Albuterol/Ipratropium 3 ml 11/28/20 18:24 11/28/20 18:33 Duoneb 0.5-3 Mg/3 Ml Neb IH 11/28/20 18:25 3 ml STAT ONE Administration Albuterol/Ipratropium Confirm 11/28/20 18:31 Duoneb 0.5-3 Mg/3 Ml Neb Administered 11/28/20 18:32 Dose 3 ml IH .STK-MED ONE Albuterol/Ipratropium 3 ml 11/28/20 23:00 Duoneb 0.5-3 Mg/3 Ml Neb IH 12/28/20 22:59 Q4HRT LEONIE Albuterol/Ipratropium 3 ml 11/28/20 22:49 11/29/20 05:24 Duoneb 0.5-3 Mg/3 Ml Neb IH 12/28/20 22:48 3 ml Q4HPRN PRN Administration SHORTNESS OF BREATH/WHEEZING Amlodipine Besylate 5 mg 11/29/20 10:00 11/29/20 09:47 Norvasc 5 Mg PO 12/29/20 09:59 5 mg DAILY LEONIE Administration Aspirin 324 mg 11/28/20 18:26 11/28/20 18:32 Baby Aspirin 81 Mg Chew PO 11/28/20 18:27 324 mg STAT ONE Administration Aspirin Confirm 11/28/20 18:30 Baby Aspirin 81 Mg Chew Administered 11/28/20 18:31 Dose 324 mg .ROUTE .STK-MED ONE Diphenoxylate HCl/Atropine 3 tablet 11/29/20 10:00 11/29/20 09:47 Lomotil PO 12/29/20 09:59 3 tablet DAILY LEONIE Administration Famotidine 20 mg 11/28/20 22:07 11/28/20 23:13 Pepcid 20 Mg Vial IV 12/28/20 22:06 20 mg Q12HT LEONIE Administration Famotidine 40 mg 11/29/20 10:00 11/29/20 09:46 Pepcid 20 Mg PO 12/29/20 09:59 40 mg DAILY LEONIE Administration Azithromycin 500 mg in 250 mls @ 250 mls/hr 11/28/20 19:38 11/28/20 21:05 Zithromax 500 Mg/ 250 Ml Nacl Premix IV 11/28/20 20:37 250 ml/hr STAT STA 250 mls/hr Administration Ceftriaxone Sodium/Dextrose 1 g in 50 mls @ 100 mls/hr 11/28/20 19:38 11/28/20 21:04 Rocephin 1 Gm-D5w 50 Ml Bag IV 11/28/20 20:07 100 ml/hr STAT STA 100 mls/hr Administration Azithromycin Confirm 11/28/20 21:02 Zithromax 500 Mg/ 250 Ml Nacl Premix Administered 11/28/20 21:03 Dose 500 mg in 250 mls @ ud IV .STK-MED ONE Ceftriaxone Sodium/Dextrose Confirm 11/28/20 21:02 Rocephin 1 Gm-D5w 50 Ml Bag Administered 11/28/20 21:03 Dose 1 g in 50 mls @ ud IV .STK-MED ONE Azithromycin 500 mg in 250 mls @ 250 mls/hr 11/29/20 22:00 Zithromax 500 Mg/ 250 Ml Nacl Premix IV 12/29/20 21:59 Q24H22 LEONIE Ceftriaxone Sodium/Dextrose 1 g in 50 mls @ 100 mls/hr 11/29/20 22:00 Rocephin 1 Gm-D5w 50 Ml Bag IV 12/02/20 21:59 Q24H22 LEONIE Insulin Glargine 20 unit 11/28/20 23:00 11/28/20 23:12 Lantus Insulin SQ 12/28/20 22:59 20 unit HS LEONIE Administration Insulin Human Lispro 0 unit 11/28/20 22:07 Humalog SQ 12/28/20 22:06 UD PRN HYPERGLYCEMIA Insulin Human Lispro 0 unit 11/28/20 22:54 11/29/20 11:59 Humalog SQ 12/28/20 22:53 8 unit UD PRN Administration HYPERGLYCEMIA Insulin Human Regular 20 unit 11/29/20 07:49 Humulin R SQ 12/29/20 07:48 DAILY PRN PRN HYPERGLYCEMIA Methylprednisolone Sodium Succinate 125 mg 11/28/20 18:24 11/28/20 18:32 Solu-Medrol 125 Mg IV 11/28/20 18:25 125 mg STAT ONE Administration Methylprednisolone Sodium Succinate Confirm 11/28/20 18:30 Solu-Medrol 125 Mg Administered 11/28/20 18:31 Dose 125 mg .ROUTE .STK-MED ONE Methylprednisolone Sodium Succinate 80 mg 11/28/20 22:07 11/29/20 03:59 Solu-Medrol 125 Mg IV 12/28/20 22:06 80 mg Q6H LEONIE Administration Methylprednisolone Sodium Succinate 80 mg 11/29/20 12:00 Solu-Medrol 125 Mg IV 12/29/20 11:59 Q6HT LEONIE Methylprednisolone Sodium Succinate 80 mg 11/29/20 18:00 Solu-Medrol 125 Mg IV 12/29/20 17:59 Q12H [facility] Miscellaneous Information 1 each 11/29/20 08:00 Medication Intervention 12/29/20 07:59 .RT TO CHECK ON LEONIE Morphine Sulfate 2 mg 11/28/20 22:07 Morphine Sulfate 2 Mg Inj IV 12/03/20 22:06 Q4H PRN PRN PAIN Pantoprazole Sodium 40 mg 11/29/20 10:00 11/29/20 09:47 Protonix 40mg Tablet PO 12/29/20 09:59 40 mg DAILY LEONIE Administration Fluticasone/Salmeterol 2 puff 11/29/20 07:47 Advair Hfa 230/ Mcg Common Canister* IH 12/29/20 07:46 BID PRN PRN ASTHMA Intake & Output (Last 24 hours) 11/27/20 11/28/20 11/29/20 11/30/20 11:59 11:59 11:59 11:59 Intake Total 2480 360 Output Total 3400 1900 Balance -920 -1540 Weight 77 kg Laboratory Results (Last 24 hours) 11/29/20 08:00 Hemoglobin A1c > 14.00 H Orders (Last 24 hours) Category Date Time Status POCT GLUCOSE Stat Lab 11/29/20 11:16 Completed Azithromycin 500 mg/250 ml [Zithromax 500 MG/ 250 ML Med 11/29/20 22:00 Dis continued NaCl Premix] 500 mg in 250 ml IV Q24H22 Ceftriaxone 1 GM/50 ML PREMIX* [ROCEPHIN 1 Gm-D5w 50 ml Med 11/29/20 22:00 Discontinued Bag] 1 g in 50 ml IV Q24H22 Methylprednis Sod Succ 125 mg* [solu-MEDROL 125 MG] Med 11/29/20 18:00 Discontinued 80 mg IV Q12H Methylprednis Sod Succ 125 mg* [solu-MEDROL 125 MG] Med 11/29/20 12:00 Discontinued 80 mg IV Q6HT - Vitals & Intake/Output Vital Signs: Vital Signs Temperature 97.6 F 11/29/20 11:48 Pulse Rate 76 11/29/20 11:48 Respiratory Rate 16 11/29/20 11:48 Blood Pressure 134/81 11/29/20 11:48 O2 Sat by Pulse Oximetry 97 11/29/20 11:48 Intake & Output: Intake & Output 11/27/20 11/28/20 11/29/20 11/30/20 11:59 11:59 11:59 11:59 Intake Total 2480 360 Output Total 3400 1900 Balance -920 -1540 Weight 77 kg - Lab Result Diagrams: 11/29/20 04:55 11/29/20 04:55 Lab Results-Last 24 Hrs: Lab Results-Last 24 Hours 11/29/20 Range/Units 08:00 Hemoglobin A1c > 14.00 H (4.5-6.0) % - Radiology Exams Ordered Rad Exams-Entire Visit: Radiology Procedures Category Date Time Status CHEST 1 VIEW (PORTABLE) Stat Exams 11/28/20 18:25 Completed CHEST W/WO CONTRAST [CT] Stat Exams 11/28/20 20:01 Completed - Procedures and Test Procedures and Tests throughout Hospitalization: Therapy Orders & Screens 11/28/20 18:30 Respiratory Therapy Assessment DAILY Comment: 11/28/20 22:07 Oxygen Nasal Cannula 2 lpm Comment: 11/28/20 22:51 Respiratory Therapy Assessment DAILY Comment: Diagnosis: pneumonia 11/28/20 23:44 RT Screen per Nursing Assess ONCE Comment: Protocol Order Physician Instructions: Greater than 3 points order RT Admission Screen Reason For Exam: Triggered on Admission Diagnosis: pneumonia Diagnosis: pneumonia Pneumonia: Yes Home O2: No Asthma: Yes CHF: No Home CPAP/BIPAP: No Home Nebs/MDI: Yes Total Points: 12 - Discharge Discharge Date: 11/29/20 Disposition: Home, Self-Care Condition: Stable Prescriptions: New Methylprednisolone Packet [Medrol Dosepack] 4 mg PO UD #30 packet Continue Fluticasone/Salmeterol 500/50* [Advair 500-50 Diskus] 1 puff IH BID PRN PRN PRN Reason: asthma Albuterol Sulfate [Proair Hfa] 2 puffs IH QIDPRN PRN PRN Reason: sob Albuterol 2.5 mg/3 ml Neb [Proventil 2.5 mg/3 ml Neb] 3 ml IH QID PRN PRN PRN Reason: sob Omeprazole 40 mg PO DAILY Famotidine [Pepcid] 40 mg PO DAILY Fluticasone/Umeclidin/Vilanter [Trelegy Ellipta 100-62.5-25] 1 puff IH DAILY PRN PRN PRN Reason: Shortness Of Breath Diphenoxylate HCl/Atropine [Lomotil] 3 udtab PO DAILY Amlodipine Besylate 5 mg [Norvasc 5 mg] 5 mg PO DAILY Insulin Glargine,Hum.rec.anlog [Basaglar Kwikpen U-100] 20 unit SQ HS Insulin Regular, Human [Novolin R Flexpen] 20 units SQ DAILY PRN PRN PRN Reason: Hyperglycemia Instructions: Pneumonia, Adult (DC) Follow up with: HARRISON VENTURA MD [Primary Care Provider] - 12/10/20 2:30 pm (AT [facility]) Forms: Discharge Instructions
== END 2020-11-29 14:00 | disposition home or self-care (01) ==
LOC: ED 17:55 → MED SURG 22:00
PROVIDERS: ADMIT General Practice; ATTEND General Practice
DX: J20.8 Acute bronchitis due to other specified organisms (principal); Z85.118 Personal history of other malignant neoplasm of bronchus and lung; I10 Essential (primary) hypertension; E78.5 Hyperlipidemia, unspecified; E11.9 Type 2 diabetes mellitus without complications; Z79.899 Other long term (current) drug therapy; Z20.828 Contact with and (suspected) exposure to other viral communicable diseases; J44.9 Chronic obstructive pulmonary disease, unspecified; Z86.16 Personal history of COVID-19; Z79.4 Long term (current) use of insulin
CPT/HCPCS: 0241U; 36000; 36415; 71045; 71270; 80053; 82947; 83036; 83605; 83735; 83880; 84145; 84484; 85025; 85379; 93005; 93041; 94640; 94760; 96365; 96368; 96374; 99285; 93268; J0456; J0696; J1817; J2930; A9270-GY; G0378

== ENCOUNTER 2021-02-17 21:59 | Emergency (ER) | payer BC ==
[2021-02-17] MEDS ORDERED: PERCOCET TABLET 5/325MG PO ONE (22:24)
[2021-02-17] MEDS ORDERED: Norflex 60 MG/2 ML IM ONE (22:24)
[2021-02-17] MEDS ORDERED: PERCOCET TABLET 5/325MG ONE (22:28)
[2021-02-17] MEDS ORDERED: Norflex 60 MG/2 ML ONE (22:28)
--- NOTE | 2021-02-17 22:30 | ERPHSYRPT ---
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 Physician History: 55 years old male with history of hypertension, diabetes mellitus, chronic back pain presented in the ER with acute worsening of low back pain after he tried to lift it right on the lawn more to get it fixed around 5 PM this evening with sudden onset low back pain more in the left sacroiliac area which is aggravated with ambulation and no significant relieving factor. He took 1 Aleve with no significant relief. Patient denies any numbness tingling or weakness of lower extremities. No loss of bowel or bladder control. No perineal numbness. Timing/Duration: hour(s) (5), constant, sudden, worse Method of Injury: lifting Quality: sharp Back Pain Location: lumbar spine, paraspinous muscles Severity of Pain-Max: severe Severity of Pain-Current: severe Modifying Factors: Improves With: rest. Worsens With: movement Associated Symptoms: lower back pain, No urinary incontinence, No loss of bowel control, No constipation, No problems urinating, No light-headedness, No dizziness, No numbness in legs/feet, No weakness, No sensory/motor loss, No muscle spasms Previous symptoms: same symptoms as today Allergies/Adverse Reactions: lisinopril Allergy (Mild, Verified 02/17/21 22:06) Anaphylactic Reaction naproxen Adverse Reaction (Mild, Verified 02/17/21 22:06) Rash Home Medications: Fluticasone/Salmeterol 500/50* [Advair 500-50 Diskus] 1 puff IH BID PRN PRN 02/26/15 [History] Albuterol 2.5 mg/3 ml Neb [Proventil 2.5 mg/3 ml Neb] 3 ml IH QID PRN PRN 10/15/16 [History] Albuterol Sulfate [Proair Hfa] 2 puffs IH QIDPRN PRN 10/15/16 [History] Famotidine [Pepcid] 40 mg PO DAILY 07/23/20 [History] Fluticasone/Umeclidin/Vilanter [Trelegy Ellipta 100-62.5-25] 1 puff IH DAILY PRN PRN 07/23/20 [History] Omeprazole 40 mg PO DAILY 07/23/20 [History] Amlodipine Besylate 5 mg [Norvasc 5 mg] 5 mg PO DAILY 11/12/20 [History] Diphenoxylate HCl/Atropine [Lomotil] 3 udtab PO DAILY 11/12/20 [History] Insulin Glargine,Hum.rec.anlog [Basaglar Kwikpen U-100] 20 unit SQ DAILY 11/13/20 [History] Insulin Regular, Human [Novolin R Flexpen] 20 units SQ DAILY PRN PRN 11/13/20 [History] Gabapentin 300 mg [Neurontin 300 mg] 600 mg PO TID 02/17/21 [History] Hydrocodone/Acetaminophen [Hydrocodone-Acetamin 5-325 mg] 1 tab PO Q4HPRN PRN MDD 6 02/17/21 [History] Hx Tetanus, Diphtheria Vaccination/Date Given: Yes Hx Influenza Vaccination/Date Given: Yes Hx Pneumococcal Vaccination/Date Given: Yes Immunizations Up to Date: Yes Travel Risk - International Travel Have you traveled outside of the country in past 3 weeks: No - Coronavirus Screening Are you exhibiting any of the following symptoms?: No Close contact with a COVID-19 positive Pt in past 14-21 Days: No - Vaccine Status Have you recieved a Covid-19 vaccination: Yes 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[employer] [place] - Vaccination Dates Comment: pt was scheduled to take [employer] and Brayan then got pout on hold; pt is going to reschedule - Review of Systems Constitutional: No Symptoms Eyes: No Symptoms Respiratory: No Symptoms Cardiac: No Symptoms Abdominal/Gastrointestinal: No Symptoms Genitourinary Symptoms: No Symptoms Musculoskeletal: Back Pain Skin: No Symptoms Neurological: No Symptoms Psychological: No Symptoms Endocrine: No Symptoms Hematologic/Lymphatic: No Symptoms Immunological/Allergic: No Symptoms - Past Medical History Pertinent Past Medical History: Yes Neurological History: No Pertinent History ENT History: Cataracts Cardiac History: No Pertinent History Respiratory History: Asthma, COPD, Lung Cancer, Pneumonia, Other Endocrine Medical History: Diabetes Type II Musculoskeletal History: Fractures GI Medical History: Gallbladder Disease, Irritable Bowel History: No Pertinent History Psycho-Social History: No Pertinent History Male Reproductive Disorders: No Pertinent History Other Medical History: HAS BEEN IN REMISSION FOR LUNG CANCER X 10 YEARS. HX FRACTURE RIBS AND T6, T7 6 YEARS AGO AFTER FALL FROM LADDER. 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 both cataracts removed- suboptical implant in - Social History Smoking Status: Never smoker Exposure to second hand smoke: Yes Drug Use: none Patient Lives Alone: No Significant Family History: no pertinent family hx - Nursing Vital Signs Nursing Vital Signs: Initial Vital Signs Temperature 98.6 F 02/17/21 22:05 Pulse Rate 74 02/17/21 22:05 Respiratory Rate 20 02/17/21 22:05 Blood Pressure 167/93 02/17/21 22:05 O2 Sat by Pulse Oximetry 98 02/17/21 22:05 Pain Scale Pain Intensity [Lower Back] 9 Pain Intensity 7 - Physical Exam General Appearance: no apparent distress, alert Eye Exam: eyes nml inspection Neck Exam: normal inspection, supple, full range of motion Respiratory Exam: normal breath sounds, lungs clear Cardiovascular Exam: regular rate/rhythm, normal heart sounds Gastrointestinal Exam: soft, normal bowel sounds, No tenderness Back Exam: normal inspection, decreased range of motion, muscle spasm, point tenderness, No vertebral tenderness (Left sacroiliac area) Extremity Exam: normal inspection, normal range of motion, pelvis stable Neurologic Exam: alert, oriented x 3, cooperative, test preparer II-XII nml as tested, normal mood/affect, nml cerebellar function, sensation nml, other (Straight leg raising test positive at 60 degrees elevation on the left.), No motor deficits, No sensory deficit Skin Exam: normal color, warm SpO2 Interpretation: normal SpO2: 98 O2 Delivery: Room Air Ordered Tests: Medication Summary Discontinued Medications Generic Name Dose Route Start Last Admin Trade Name Freq PRN Reason Stop Dose Admin Orphenadrine Citrate 60 mg 02/17/21 22:24 02/17/21 22:30 Norflex 60 Mg/2 Ml IM 02/17/21 22:25 60 mg STAT ONE Administration Orphenadrine Citrate Confirm 02/17/21 22:28 Norflex 60 Mg/2 Ml Administered 02/17/21 22:29 Dose 60 mg .ROUTE .STK-MED ONE Oxycodone/Acetaminophen 1 tab 02/17/21 22:24 02/17/21 22:30 Percocet Tablet 5/325mg PO 02/17/21 22:25 1 tab STAT ONE Administration Oxycodone/Acetaminophen Confirm 02/17/21 22:28 Percocet Tablet 5/325mg Administered 02/17/21 22:29 Dose 1 tab .ROUTE .STK-MED ONE - Progress Progress: improved, re-examined Progress Note: he is given Percocet and Norflex, reevaluation feeling better. Negative neuro exam in lower extremities. Patient does have Mcbain at home which he is advised to take as needed. Do not think he needs imaging or any other work-up I believe he has a back strain. We will continue with muscle relaxants and NSAIDs to go home along with Mcbain which he has at home. Discussed signs symptoms of worsening needing return to ER which he seems understanding. Stable for discharge. 02/17/21 23:37 Counseled pt/family regarding: diagnosis, need for follow-up - Departure Departure Disposition: Home Clinical Impression: Low back strain Qualifiers: Encounter type: initial encounter Qualified Code(s): S39.012A - Strain of muscle, fascia and tendon of lower back, initial encounter Condition: Stable Critical Care Time: No Referrals: HARRISON VENTURA MD [Primary Care Provider] - Follow Up with PCP/3 days () Instructions: Low Back Pain (DC), Sciatica (DC) Additional Instructions: Take Mcbain's which you have at home as needed. Take ibuprofen as needed along with muscle relaxant. Follow-up with primary care for reevaluation. Return to ER for intractable low back pain, numbness tingling weakness of lower extremities/loss of bowel or bladder control or perineal numbness. Prescriptions: Ibuprofen 600 mg PO Q6HPRN PRN 10 Days #20 tablet PRN Reason: Pain Cyclobenzaprine HCl 10 mg [Flexeril 10 MG] 10 mg PO TID #20 tablet
[2021-02-17 23:33] VITALS: BP 158/92; PULSE 67
[2021-02-17 23:38] VITALS: O2SAT 98
== END 2021-02-17 23:34 | disposition home or self-care (01) ==
LOC: ED 21:59
DX: S39.012A Strain of muscle, fascia and tendon of lower back, initial encounter (principal); X50.0XXA Overexertion from strenuous movement or load, initial encounter; Y93.89 Activity, other specified; Y92.9 Unspecified place or not applicable; I10 Essential (primary) hypertension; M45.4 Ankylosing spondylitis of thoracic region; E11.9 Type 2 diabetes mellitus without complications; J44.9 Chronic obstructive pulmonary disease, unspecified; Z85.118 Personal history of other malignant neoplasm of bronchus and lung
CPT/HCPCS: 96372; 99283; J2360; A9270-GY

== ENCOUNTER 2021-07-06 12:57 | Emergency (ER) | payer BC ==
[2021-07-06] MEDS ORDERED: TORAdol 30 mg Injection IM ONE (13:22)
[2021-07-06] MEDS ORDERED: Norflex 60 MG/2 ML IM ONE (13:23)
[2021-07-06] MEDS ORDERED: TORAdol 30 mg Injection ONE (13:33)
[2021-07-06] MEDS ORDERED: Norflex 60 MG/2 ML ONE (13:33)
--- NOTE | 2021-07-06 14:13 | ERPHSYRPT ---
- History of Present Illness Time Seen by Provider: 07/06/21 13:00 Source: patient Exam Limitations: no limitations Patient Subjective Stated Complaint: Pt states "Last night I was walking into the kitchen and my back popped really loud and now it hurts. I took a norco last night and was able to sleep but i have tried a heating pad and naproxen and it does not help." Triage Nursing Assessment: Pt presented alert and oriented X 3, skin pwd Pt am bulates with a slow hunched over gait with arms outstretched and grunting with each step. no bruising, deformity noted to lower back, CSMX 4 Physician History: 55 years old male with history of hypertension, hyperlipidemia, remote history of low back injury, chronic pain and some numbness in lower extremities on Neurontin presented in the ER with chief complaint of sudden onset low back pain while he was walking and heard a popping sound in the low back with moderate to severe sharp pain, partial relief with heating pad and Manning. This morning he woke up and is having difficulty ambulation due to pain in the low back. Nonradiating. No numbness tingling weakness of lower extremities, no loss of bowel or bladder control. Timing/Duration: yesterday, constant, sudden, worse Method of Injury: unknown Quality: sharp Back Pain Location: lumbar spine Severity of Pain-Max: moderate Severity of Pain-Current: moderate Modifying Factors: Improves With: other. Worsens With: movement Associated Symptoms: numbness in legs/feet, lower back pain, muscle spasms, No fever, No urinary incontinence, No loss of bowel control, No constipation, No problems urinating, No weakness Allergies/Adverse Reactions: lisinopril Allergy (Mild, Verified 02/17/21 22:06) Anaphylactic Reaction naproxen Adverse Reaction (Mild, Verified 02/17/21 22:06) Rash Home Medications: Fluticasone/Salmeterol 500/50* [Advair 500-50 Diskus] 1 puff IH BID PRN PRN 02/26/15 [History] Albuterol 2.5 mg/3 ml Neb [Proventil 2.5 mg/3 ml Neb] 3 ml IH QID PRN PRN 10/15/16 [History] Albuterol Sulfate [Proair Hfa] 2 puffs IH QIDPRN PRN 10/15/16 [History] Famotidine [Pepcid] 40 mg PO DAILY 07/23/20 [History] Fluticasone/Umeclidin/Vilanter [Trelegy Ellipta 100-62.5-25] 1 puff IH DAILY PRN PRN 07/23/20 [History] Omeprazole 40 mg PO DAILY 07/23/20 [History] Amlodipine Besylate 5 mg [Norvasc 5 mg] 5 mg PO DAILY 11/12/20 [History] Diphenoxylate HCl/Atropine [Lomotil] 3 udtab PO DAILY 11/12/20 [History] Insulin Glargine,Hum.rec.anlog [Basaglar Kwikpen U-100] 20 unit SQ DAILY 11/13/20 [History] Insulin Regular, Human [Novolin R Flexpen] 20 units SQ DAILY PRN PRN 11/13/20 [History] Gabapentin 300 mg [Neurontin 300 mg] 600 mg PO TID 02/17/21 [History] Hydrocodone/Acetaminophen [Hydrocodone-Acetamin 5-325 mg] 1 tab PO Q4HPRN PRN MDD 6 02/17/21 [History] Hx Tetanus, Diphtheria Vaccination/Date Given: Yes Hx Influenza Vaccination/Date Given: Yes Hx Pneumococcal Vaccination/Date Given: Yes Immunizations Up to Date: Yes Travel Risk - International Travel Have you traveled outside of the country in past 3 weeks: No - Coronavirus Screening Are you exhibiting any of the following symptoms?: No - Vaccine Status Have you recieved a Covid-19 vaccination: Yes [employer] Super[employer]: [employer] - Vaccination Dates Comment: pt was scheduled to take Brayan and Brayan then got pout on hold; pt is going to reschedule - Review of Systems Constitutional: No Symptoms Eyes: No Symptoms Ears, Nose, & Throat: No Symptoms Respiratory: No Symptoms Cardiac: No Symptoms Abdominal/Gastrointestinal: No Symptoms Genitourinary Symptoms: No Symptoms Musculoskeletal: Back Pain Skin: No Symptoms Neurological: Sensory Changes Psychological: No Symptoms Endocrine: No Symptoms Hematologic/Lymphatic: No Symptoms Immunological/Allergic: No Symptoms - Past Medical History Pertinent Past Medical History: Yes Neurological History: No Pertinent History ENT History: Cataracts Cardiac History: No Pertinent History Respiratory History: Asthma, COPD, Lung Cancer, Pneumonia, Other Endocrine Medical History: Diabetes Type II Musculoskeletal History: Fractures GI Medical History: Gallbladder Disease, Irritable Bowel History: No Pertinent History Psycho-Social History: No Pertinent History Male Reproductive Disorders: No Pertinent History Other Medical History: HAS BEEN IN REMISSION FOR LUNG CANCER X 10 YEARS. HX FRACTURE RIBS AND T6, T7 6 YEARS AGO AFTER FALL FROM LADDER. 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 both cataracts removed- suboptical implant in - Social History Smoking Status: Never smoker Exposure to second hand smoke: Yes Drug Use: none Patient Lives Alone: No Significant Family History: no pertinent family hx - Nursing Vital Signs Nursing Vital Signs: Initial Vital Signs Temperature 98.2 F 07/06/21 13:03 Pulse Rate 86 07/06/21 13:03 Respiratory Rate 20 07/06/21 13:03 Blood Pressure 187/106 07/06/21 13:03 O2 Sat by Pulse Oximetry 99 07/06/21 13:03 Pain Scale Pain Intensity [Lower Back] 8 Pain Intensity 4 - Physical Exam General Appearance: no apparent distress, alert Eye Exam: PERRL/EOMI, eyes nml inspection Ears, Nose, Throat Exam: normal ENT inspection Neck Exam: normal inspection, supple, full range of motion Respiratory Exam: normal breath sounds, lungs clear Cardiovascular Exam: regular rate/rhythm, normal heart sounds Gastrointestinal Exam: soft, normal bowel sounds, No tenderness Back Exam: normal inspection, vertebral tenderness (Mild lumbar spinal and paraspinal tenderness.), muscle spasm Extremity Exam: normal inspection, normal range of motion Neurologic Exam: alert, oriented x 3, cooperative, 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 author of II-XII nml as tested, other (Straight leg raising test negative on right but positive on the left at 60 degrees.), No nml station & gait, No sensation nml Skin Exam: normal color (Given FOLFOX) SpO2 Interpretation: normal SpO2: 99 O2 Delivery: Room Air Ordered Tests: Active Orders 24 hr Category Date Time Status LUMBAR SPINE W/O [CT] Stat Exams 07/06/21 13:39 Taken Medication Summary Discontinued Medications Generic Name Dose Route Start Last Admin Trade Name Rosalba PRN Reason Stop Dose Admin Ketorolac Tromethamine 30 mg 07/06/21 13:22 07/06/21 13:34 Ketorolac Tromethamine 30 Mg/Ml Inj IM 07/06/21 13:23 30 mg STAT ONE Administration Ketorolac Tromethamine Confirm 07/06/21 13:33 Ketorolac Tromethamine 30 Mg/Ml Inj Administered 07/06/21 13:34 Dose 30 mg .ROUTE .STK-MED ONE Orphenadrine Citrate 60 mg 07/06/21 13:23 07/06/21 13:34 Orphenadrine Citrate 60 Mg/2 Ml Amp IM 07/06/21 13:24 60 mg STAT ONE Administration Orphenadrine Citrate Confirm 07/06/21 13:33 Orphenadrine Citrate 60 Mg/2 Ml Amp Administered 07/06/21 13:34 Dose 60 mg .ROUTE .STK-MED ONE - Progress Progress: improved, pain not gone completely, re-examined Progress Note: 07/06/21 14:56 Given symptomatic treatment with Toradol and Norflex, reevaluation feeling b tadeo. No signs of cauda equina. Has chronic numbness in lower extremity which is not any worse than usual. I have obtained CT lumbar spine which did not show any acute fracture or subluxation. I believe patient has a strain, recommended continuing with pain medication he is on and will give it course of muscle relaxants to go home. Discussed signs symptoms of worsening needing return to ER which he seems understanding. Stable for discharge. Counseled pt/family regarding: diagnosis, need for follow-up, rad results - Departure Departure Disposition: Home Clinical Impression: Low back strain Qualifiers: Encounter type: initial encounter Qualified Code(s): S39.012A - Strain of muscle, fascia and tendon of lower back, initial encounter Condition: Stable Critical Care Time: No Referrals: HARRISON VENTURA MD [Primary Care Provider] - Follow up/PCP as directed (In 2 days for reevaluation) Instructions: Low Back Pain (DC) Additional Instructions: Take pain medication which you have at home as needed. Follow-up with your primary care for reevaluation. Return to ER if having increased/excruciating low back pain with numbness tingling weakness of lower extremities/perineal numbness/loss of bowel or bladder control. Prescriptions: Cyclobenzaprine HCl 10 mg [Flexeril 10 MG] 10 mg PO TID #21 tablet
[2021-07-06 15:07] VITALS: BP 159/90; PULSE 59; O2SAT 98
--- NOTE | 2021-07-06 23:04 | XRAY ---
Indication: Low back pain radiating to tailbone. Multiple contiguous axial images obtained through the lumbar spine. Sagittal and coronal reformatted images obtained. Comparison: October 31, 2015. New remote-appearing L3 superior endplate fracture with less than 25% height loss and minimal L2-L3 degenerative vacuum disc phenomena. Again minimal broad-based disc bulge L3-S1 levels and mild bilateral degenerative facet arthropathy. No acute fracture, suspicious bony lesions, or spinal canal stenosis. Sagittal and coronal reformatted images again demonstrates normal lumbar alignment with disc spaces maintained. No acute compression fracture or subluxation. Visualized noncontrasted soft tissues again demonstrates minimal aortoiliac calcifications. Impression: 1. New remote L3 superior endplate fracture and minimal L2-L3 degenerative vacuum disc phenomena. 2. Stable multilevel degenerative spondylosis and aortoiliac calcifications. Comment: Preliminary interpretation made by [facility]. No critical discrepancy.
== END 2021-07-06 15:23 | disposition home or self-care (01) ==
LOC: ED 12:57
DX: S39.012A Strain of muscle, fascia and tendon of lower back, initial encounter (principal); I10 Essential (primary) hypertension; E78.5 Hyperlipidemia, unspecified; G89.29 Other chronic pain; E11.8 Type 2 diabetes mellitus with unspecified complications; Z79.4 Long term (current) use of insulin; G54.5 Neuralgic amyotrophy; U09.9 Post COVID-19 condition, unspecified; Z79.891 Long term (current) use of opiate analgesic
CPT/HCPCS: 72131; 96372; 99284; J1885; J2360

== ENCOUNTER 2021-08-25 00:22 | Emergency (ER) | payer BC ==
[2021-08-25] MEDS ORDERED: Hydromorphone 1 mg/ml Injection IV ONE (00:34)
[2021-08-25] MEDS ORDERED: Zofran 4 MG/2 ML VIAL IV ONE (00:34)
[2021-08-25] MEDS ORDERED: Compazine 10 MG/2 ML IV ONE (00:34)
[2021-08-25] MEDS ORDERED: PROTONIX 40 MG IV IV ONE ×2 (00:34→00:39)
[2021-08-25] MEDS ORDERED: Sodium Chloride 0.9% 1000 ML 1,000 ML IV STA (00:34)
[2021-08-25] MEDS ORDERED: Hydromorphone 1 mg/ml Injection ONE (00:39)
[2021-08-25] MEDS ORDERED: Zofran 4 MG/2 ML VIAL ONE (00:39)
[2021-08-25] MEDS ORDERED: Compazine 10 MG/2 ML ONE (00:40)
[2021-08-25] MEDS ORDERED: Sodium Chloride 0.9% 1000 ML 1,000 ML ONE (00:40)
[2021-08-25 00:56] LABS: Basophil (Absolute #) 0.05 (0-0.4); Eosinophil (Absolute #) 0.08 (0-0.5); Hematocrit 38.6 % (42-50); Hemoglobin 13.6 gm/dl (12.5-18.0); Lymphocyte (Absolute #) 2.51 (1.0-4.6); Mean Cell Volume 85.6 fl (78-100); Mean Corpuscular Hemoglobin 30.2 pg (26-32); Mean Corpuscular Hgb Concent. 35.2 g/dl (32-36); Mean Platelet Volume 9.3 fl (7.5-11.0); Monocyte (Absolute #) 0.61 (0.0-1.3); Monocytes % 7.8 % (0.0-12.0); Neutrophil % 58.6 % (36.0-66.0); Platelet Count 243 K/mm3 (150-450); Red Blood Count 4.51 M/mm3 (4.1-5.6); Red Cell Distribution Width 12.7 % (11.5-14.0); White Blood Count 7.9 K/mm3 (4.0-10.5)
[2021-08-25 01:00] LABS: Appearance CLEAR (CLEAR); Bilirubin NEGATIVE (NEGATIVE); Blood NEGATIVE Ery/ul (0-5); Glucose >=500 mg/dL (NEGATIVE); Ketones NEGATIVE (NEGATIVE); Leukocyte Esterase NEGATIVE (NEGATIVE); Nitrite NEGATIVE (NEGATIVE); Protein,Urine Dip NEGATIVE (Negative); Specific Gravity 1.021 (1.005-1.025); Urobilinogen NEGATIVE mg/dL (0-1)
[2021-08-25 01:03] LABS: Bacteria NONE SEEN /HPF (NEGATIVE); RBC NONE SEEN /HPF (0-2)
[2021-08-25 01:07] LABS: ALBUMIN 4.2 g/dL (3.5-5.0); ALKALINE PHOSPHATASE 93 U/L (38-126); AMYLASE 46 U/L (30-110); ANION GAP 13.2 MEQ/L (5-15); BLOOD UREA NITROGEN 18 mg/dL (9-20); CHLORIDE 95 mmol/L (98-107); Calcium 9.2 mg/dL (8.4-10.2); Carbon Dioxide 29 mmol/L (22-30); Creatinine 1 0.93 mg/dL (0.66-1.25); EST GLOMERULAR FILTRATION RATE > 60.0 ML/MIN; LIPASE 51 U/L (23-300); Potassium 3.8 mmol/L (3.5-5.1); SGOT/AST 18 U/L (17-59); SGPT/ALT 18 U/L (0-50); SODIUM 133 mmol/L (137-145); Total Protein 6.7 g/dL (6.3-8.2)
--- NOTE | 2021-08-25 01:09 | ERPHSYRPT ---
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 Patient denies any diarrhea vomiting nausea. Patient also denies any fever or chills. Patient has COVID infection and is also fully vaccinated. Timing/Duration: day(s) (two days) Activities at Onset: none Quality: cramping Abdominal Pain Onset Location: RLQ Pain Radiation: no radiation Severity of Pain-Max: moderate Severity of Pain-Current: moderate Modifying Factors: Improves With: nothing Associated Symptoms: denies symptoms Previous symptoms: same symptoms as today Allergies/Adverse Reactions: lisinopril Allergy (Mild, Verified 02/17/21 22:06) Anaphylactic Reaction naproxen Adverse Reaction (Mild, Verified 02/17/21 22:06) Rash Home Medications: Fluticasone/Salmeterol 500/50* [Advair 500-50 Diskus] 1 puff IH BID PRN PRN 02/26/15 [History] Albuterol 2.5 mg/3 ml Neb [Proventil 2.5 mg/3 ml Neb] 3 ml IH QID PRN PRN 10/15/16 [History] Albuterol Sulfate [Proair Hfa] 2 puffs IH QIDPRN PRN 10/15/16 [History] Famotidine [Pepcid] 40 mg PO DAILY 07/23/20 [History] Fluticasone/Umeclidin/Vilanter [Trelegy Ellipta 100-62.5-25] 1 puff IH DAILY PRN PRN 07/23/20 [History] Omeprazole 40 mg PO DAILY 07/23/20 [History] Amlodipine Besylate 5 mg [Norvasc 5 mg] 5 mg PO DAILY 11/12/20 [History] Diphenoxylate HCl/Atropine [Lomotil] 3 udtab PO DAILY 11/12/20 [History] Insulin Glargine,Hum.rec.anlog [Basaglar Kwikpen U-100] 20 unit SQ DAILY 11/13 [History] Insulin Regular, Human [Novolin R Flexpen] 20 units SQ DAILY PRN PRN 11/13/20 [History] Gabapentin 300 mg [Neurontin 300 mg] 600 mg PO TID 02/17/21 [History] Hydrocodone/Acetaminophen [Hydrocodone-Acetamin 5-325 mg] 1 tab PO Q4HPRN PRN MDD 6 02/17/21 [History] Hx Tetanus, Diphtheria Vaccination/Date Given: Yes Hx Influenza Vaccination/Date Given: Yes Hx Pneumococcal Vaccination/Date Given: Yes Travel Risk - International Travel Have you traveled outside of the country in past 3 weeks: No - Coronavirus Screening Are you exhibiting any of the following symptoms?: No Close contact with a COVID-19 positive Pt in past 14-21 Days: No - Vaccine Status Have you recieved a Covid-19 vaccination: Yes [employer]: [employer] - Vaccination Dates Date of 2cond Vaccination (if applicable): january Comment: pt was scheduled to take Brayan and Bryaan then got pout on hold; pt is going to reschedule - Review of Systems Constitutional: No Fever, No Chills Eyes: No Symptoms Ears, Nose, & Throat: No Symptoms Respiratory: No Cough, No Dyspnea Cardiac: No Chest Pain, No Edema, No Syncope Abdominal/Gastrointestinal: Abdominal Pain, No Nausea, No Vomiting, No Diarrhea Genitourinary Symptoms: No Dysuria Musculoskeletal: No Back Pain, No Neck Pain Skin: No Rash Neurological: No Dizziness, No Focal Weakness, No Sensory Changes Psychological: No Symptoms Endocrine: No Symptoms All Other Systems: Reviewed and Negative - Past Medical History Pertinent Past Medical History: Yes Neurological History: No Pertinent History ENT History: Cataracts Cardiac History: No Pertinent History Respiratory History: Asthma, COPD, Lung Cancer, Pneumonia, Other Endocrine Medical History: Diabetes Type II Musculoskeletal History: Fractures GI Medical History: Gallbladder Disease, Irritable Bowel History: No Pertinent History Psycho-Social History: No Pertinent History Male Reproductive Disorders: No Pertinent History Other Medical History: HAS BEEN IN REMISSION FOR LUNG CANCER X 10 YEARS. HX FRA CTURE RIBS AND T6, T7 6 YEARS AGO AFTER FALL FROM LADDER. 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 both cataracts removed- suboptical implant in - Social History Smoking Status: Never smoker Exposure to second hand smoke: Yes Drug Use: none Patient Lives Alone: No Significant Family History: no pertinent family hx - Nursing Vital Signs Nursing Vital Signs: Initial Vital Signs Temperature 97.7 F 08/25/21 00:29 Pulse Rate 79 08/25/21 00:29 Respiratory Rate 20 08/25/21 00:29 Blood Pressure 227/127 08/25/21 00:29 O2 Sat by Pulse Oximetry 98 08/25/21 00:29 Pain Scale Pain Intensity 3 - Physical Exam General Appearance: no apparent distress, alert Eye Exam: PERRL/EOMI, eyes nml inspection Ears, Nose, Throat Exam: normal ENT inspection, pharynx normal, moist mucous membranes Neck Exam: normal inspection, non-tender, supple, full range of motion Respiratory Exam: normal breath sounds, lungs clear, No respiratory distress Cardiovascular Exam: regular rate/rhythm, normal heart sounds Gastrointestinal/Abdomen Exam: soft, tenderness (Right mid and lower abdomen), No mass Male Genitalia Exam: No hernia, No testicular tenderness Back Exam: normal inspection, normal range of motion, No CVA tenderness, No vertebral tenderness Extremity Exam: normal inspection, normal range of motion, pelvis stable Neurologic Exam: alert, oriented x 3, cooperative, normal mood/affect, nml cerebellar function, sensation nml, No motor deficits Skin Exam: normal color, warm, dry SpO2: 98 - Course Nursing assessment & vital signs reviewed: Yes - CT Exams Abdomen/Pelvis CT Interpretation: Tele-radiologist Report (noacute pathology) Ordered Tests: Active Orders 24 hr Category Date Time Status EKG-ER Only STAT Care 08/25/21 00:34 Active ABDOMEN AND PELVIS W/0 CONTRAS [CT] Stat Exams 08/25/21 00:35 Taken AMYLASE Stat Lab 08/25/21 00:53 Completed CBC W DIFF Stat Lab 08/25/21 00:53 Completed CMP Stat Lab 08/25/21 00:53 Completed LIPASE Stat Lab 08/25/21 00:53 Completed Lactic Acid Stat Lab 08/25/21 00:34 Completed POCT GLUCOSE Stat Lab 08/25/21 01:52 Received UA W/RFX UR CULTURE Stat Lab 08/25/21 00:53 Completed Medication Summary Discontinued Medications Generic Name Dose Route Start Last Admin Trade Name Freq PRN Reason Stop Dose Admin Hydromorphone HCl 1 mg 08/25/21 00:34 08/25/21 00:44 Hydromorphone 1 Mg/1ml Inj 1 Mg/Ml Syringe IV 08/25/21 00:35 1 mg STAT ONE Administration Hydromorphone HCl Confirm 08/25/21 00:39 Hydromorphone 1 Mg/1ml Inj 1 Mg/Ml Syringe Administered 08/25/21 00:40 Dose 1 mg .ROUTE .STK-MED ONE Sodium Chloride 1,000 mls @ 999 mls/hr 08/25/21 00:34 08/25/21 00:43 Sodium Chloride 0.9% 1000 Ml IV 08/25/21 01:34 999 mls/hr .Q1H1M STA Administration Sodium Chloride Confirm 08/25/21 00:40 Sodium Chloride 0.9% 1000 Ml Administered 08/25/21 00:41 Dose 1,000 mls @ ud .ROUTE .STK-MED ONE Insulin Human Regular 15 unit 08/25/21 01:20 08/25/21 01:25 Insulin Regular, Human 1 Unit IV 08/25/21 01:21 15 unit STAT ONE Administration Insulin Human Regular Confirm 08/25/21 01:23 Insulin Regular, Human 1 Unit Administered 08/25/21 01:24 Dose 15 unit .ROUTE .STK-MED ONE Ondansetron HCl 4 mg 08/25/21 00:34 08/25/21 00:43 Ondansetron Hcl 4 Mg/2 Ml Vial IV 08/25/21 00:35 4 mg STAT ONE Administration Ondansetron HCl Confirm 08/25/21 00:39 Ondansetron Hcl 4 Mg/2 Ml Vial Administered 08/25/21 00:40 Dose 4 mg .ROUTE .STK-MED ONE Pantoprazole Sodium 40 mg 08/25/21 00:34 08/25/21 00:44 Pantoprazole 40 Mg Vial IV 08/25/21 00:35 40 mg STAT ONE Administration Pantoprazole Sodium Confirm 08/25/21 00:39 Pantoprazole 40 Mg Vial Administered 08/25/21 00:40 Dose 40 mg IV .STK-MED ONE Prochlorperazine Edisylate 5 mg 08/25/21 00:34 08/25/21 00:42 Prochlorperazine Edisylate 10 Mg/2 Ml Vial IV 08/25/21 00:35 5 mg STAT ONE Administration Prochlorperazine Edisylate Confirm 08/25/21 00:40 Prochlorperazine Edisylate 10 Mg/2 Ml Vial Administered 08/25/21 00:41 Dose 10 mg .ROUTE .[facility] ONE Lab/Rad Data: Laboratory Result Diagrams 08/25/21 00:53 08/25/21 00:53 Laboratory Results 08/25/21 08/25/21 08/25/21 Range/Units 00:53 00:53 00:53 WBC 7.9 (4.0-10.5) K/mm3 RBC 4.51 (4.1-5.6) M/mm3 Hgb 13.6 (12.5-18.0) gm/dl Hct 38.6 L (42-50) % MCV 85.6 (78-100) fl MCH 30.2 (26-32) pg MCHC 35.2 (32-36) g/dl RDW 12.7 (11.5-14.0) % Plt Count 243 (150-450) K/mm3 MPV 9.3 (7.5-11.0) fl Gran % 58.6 (36.0-66.0) % Eos # (Auto) 0.08 (0-0.5) Absolute Lymphs (auto) 2.51 (1.0-4.6) Absolute Monos (auto) 0.61 (0.0-1.3) Lymphocytes % 32.0 (24.0-44.0) % Monocytes % 7.8 (0.0-12.0) % Eosinophils % 1.0 (0.00-5.0) % Basophils % 0.6 (0.0-0.4) % Absolute Granulocytes 4.60 (1.4-6.9) Basophils # 0.05 (0-0.4) Sodium 133 L (137-145) mmol/L Potassium 3.8 (3.5-5.1) mmol/L Chloride 95 L (98-107) mmol/L Carbon Dioxide 29 (22-30) mmol/L Anion Gap 13.2 (5-15) MEQ/L BUN 18 (9-20) mg/dL Creatinine 0.93 (0.66-1.25) mg/dL Estimated GFR > 60.0 ML/MIN Glucose 542 H* (74-106) mg/dL Lactic Acid (0.4-2.0) Calcium 9.2 (8.4-10.2) mg/dL Total Bilirubin 0.60 (0.2-1.3) mg/dL AST 18 (17-59) U/L ALT 18 (0-50) U/L Alkaline Phosphatase 93 (38-126) U/L Serum Total Protein 6.7 (6.3-8.2) g/dL Albumin 4.2 (3.5-5.0) g/dL Amylase 46 (30-110) U/L Lipase 51 (23-300) U/L Urine Color COLORLESS (YELLOW) Urine Appearance CLEAR (CLEAR) Urine pH 7.0 (5-6) Ur Specific [place] 1.021 (1.005-1.025) Urine Protein NEGATIVE (Negative) Urine Ketones NEGATIVE (NEGATIVE) Urine Blood NEGATIVE (0-5) Kaden/ul Urine Nitrite NEGATIVE (NEGATIVE) Urine Bilirubin NEGATIVE (NEGATIVE) Urine Urobilinogen NEGATIVE (0-1) mg/dL Ur Leukocyte Esterase NEGATIVE (NEGATIVE) Urine WBC (Auto) NONE (0-5) /HPF Urine RBC (Auto) NONE SEEN (0-2) /HPF U Epithel Cells (Auto) NONE (FEW) /HPF Urine Bacteria (Auto) NONE SEEN (NEGATIVE) /HPF Urine Culture Reflexed NO (NO) Urine Glucose >=500 (NEGATIVE) mg/dL 08/25/21 Range/Units 00:34 WBC (4.0-10.5) K/mm3 RBC (4.1-5.6) M/mm3 Hgb (12.5-18.0) gm/dl Hct (42-50) % MCV (78-100) fl MCH (26-32) pg MCHC (32-36) g/dl RDW (11.5-14.0) % Plt Count (150-450) K/mm3 MPV (7.5-11.0) fl Gran % (36.0-66.0) % Eos # (Auto) (0-0.5) Absolute Lymphs (auto) (1.0-4.6) Absolute Monos (auto) (0.0-1.3) Lymphocytes % (24.0-44.0) % Monocytes % (0.0-12.0) % Eosinophils % (0.00-5.0) % Basophils % (0.0-0.4) % Absolute Granulocytes (1.4-6.9) Basophils # (0-0.4) Sodium (137-145) mmol/L Potassium (3.5-5.1) mmol/L Chloride (98-107) mmol/L Carbon Dioxide (22-30) mmol/L Anion Gap (5-15) MEQ/L BUN (9-20) mg/dL Creatinine (0.66-1.25) mg/dL Estimated GFR ML/MIN Glucose (74-106) mg/dL Lactic Acid 1.4 (0.4-2.0) Calcium (8.4-10.2) mg/dL Total Bilirubin (0.2-1.3) mg/dL AST (17-59) U/L ALT (0-50) U/L Alkaline Phosphatase (38-126) U/L Serum Total Protein (6.3-8.2) g/dL Albumin (3.5-5.0) g/dL Amylase (30-110) U/L Lipase (23-300) U/L Urine Color (YELLOW) Urine Appearance (CLEAR) Urine pH (5-6) Ur Specific [place] (1.005-1.025) Urine Protein (Negative) Urine Ketones (NEGATIVE) Urine Blood (0-5) Kaden/ul Urine Nitrite (NEGATIVE) Urine Bilirubin (NEGATIVE) Urine Urobilinogen (0-1) mg/dL Ur Leukocyte Esterase (NEGATIVE) Urine WBC (Auto) (0-5) /HPF Urine RBC (Auto) (0-2) /HPF U Epithel Cells (Auto) (FEW) /HPF Urine Bacteria (Auto) (NEGATIVE) /HPF Urine Culture Reflexed (NO) Urine Glucose (NEGATIVE) mg/dL - Progress Progress: improved, pain not gone completely Counseled pt/family regarding: lab results, diagnosis, need for follow-up, rad results - Departure Departure Disposition: Home Clinical Impression: Constipation by delayed colonic transit, Hyperglycemia Abdominal pain Qualifiers: Abdominal location: right lower quadrant Qualified Code(s): R10.31 - Right lower quadrant pain Hypertension Qualifiers: Hypertension type: primary hypertension Qualified Code(s): I10 - Essential (primary) hypertension Condition: Stable Critical Care Time: Yes Critical Care Time(excluding separately billable procedures): Critical 30-74 mins Referrals: HARRISON VENTURA MD [Primary Care Provider] - Follow up/PCP as directed Instructions: Acute Abdomen (Belly Pain), Adult (DC) Additional Instructions: Discharge/Care Plan NILAY MOREJON was seen on 08/25/21 in the Emergency Room. The patient was counseled regarding Diagnosis,Lab results, Imaging studies, need for follow up and when to return to the Emergency Room. Prescriptions given: Discharge Note I have spoken with the patient and/or caregivers. I have explained the patient's condition, diagnosis and treatment plan based on the information available to me at this time. I have answered the patient's and/or caregiver's questions and addressed any concerns. The patient and/or caregivers have as good understanding of the patient's diagnosis, condition and treatment plan as can be expected at t his point. The vital signs have been stable. The patient's condition is stable and appropriate for discharge from the emergency department. The patient will pursue further outpatient evaluation with the primary care physician or other designated or consulting physician as outlined in the discharge instructions. The patient and/or caregivers are agreeable to this plan of care and follow-up instructions have been explained in detail. The patient and/or caregivers have received these instruction. The patient/and or caregivers are aware that any significant change in condition or worsening of symptoms should prompt an immediate return to this or the closest emergency department or call 911. NILAY MOREJON was seen on 08/25/21 n the Emergency Room. At that time you were treated for an emergent condition, during your visit Laboratory, Radiology and/or other procedures may have been ordered. It is very important that you follow-up with your Primary Care Physician HARRISON VENTURA within the next 24-48 hours to review your Emergency Room visit and the final results of testing that was ordered. Some test results such as Urine Cultures, Blood Cultures, and other cultures if ordered will not be finalized for 24-48 hours. If you do not have a Primary Care Provider please call the medical records department at [phone] to obtain a copy of your results or you may sign into our patient portal to obtain these results by visiting us @ [email or web address] and completing the following steps: 1. Click on the Patient Portal link 2. Click the Patient Self Enrollment Link to complete the enrollment form and entering your 3. Once the enrollment form is completed you will receive an email with a temporary ID and password at the email address you provided. 4. Next choose a user name and password. Your user name must be at least 4 characters long and your password must be at least 4 characters long. 5. Choose a security question from the list and provide your answer to the question. If you already have signed into the Health Portal you may access your Health Care Information 23/02 by the following steps: 1. Login to our website @ [email or web address] 2. Enter your original user name and password. FAQS The [facility] Health Portal is an online tool that contains your Lab Results, Ra diology Reports, Visit History, Discharge Instructions and Health Summary Lab and Radiology Results will not be available for 72 hours on the portal. The Portal is a secure site, passwords are encryted and URLs are re-written so they cannot be copied and pasted. You and authorized family members are the only ones who can access your Portal. Also there is a timeout feature that protects your information if you leave the Portal page open. If you have technical difficulty please use the Contact Us link on the page this will allow you to submit any questions you have regarding the Portal or you may contact the Medical Record Department at [phone].
[2021-08-25 01:15] LABS: Glucose 542 mg/dL (74-106)
[2021-08-25] MEDS ORDERED: HUMULIN R IV ONE ×2 (01:20→01:54)
[2021-08-25] MEDS ORDERED: HUMULIN R ONE (01:23)
[2021-08-25] MEDS ORDERED: HUMALOG ONE (01:57)
[2021-08-25 03:06] VITALS: BP 127/72; PULSE 100; O2SAT 97
--- NOTE | 2021-08-25 08:42 | XRAY ---
Indication: Right lower quadrant pain. Multiple contiguous axial images obtained through the abdomen and pelvis without contrast. Comparison: October 31, 2015 Lung bases demonstrate stable right mid lung pleural-parenchymal fibrosis/scarring. No infiltrate or effusion. Heart not enlarged. Stomach is markedly distended with food/fluid. Noncontrasted stomach and bowel loops nonobstructed with normal appendix. There is now moderate diffuse scatter colonic fecal debris throughout including rectum. Again previous cholecystectomy. No free fluid/air. Remaining liver, pancreas, spleen, adrenal glands, kidneys, ureters, and bladder are unremarkable for noncontrast exam. Again minimal aortoiliac calcifications without AAA. Osseous structures again demonstrates mild osteopenia and mild degenerative changes throughout the thoracolumbar spine. Superior endplate L3 demonstrates new remote-appearing compression fracture with less than 25% height loss. Impression: 1. New diffuse fecal stasis. 2. New remote L3 endplate fracture. 3. Again osteopenia and multilevel degenerative spondylosis. 4. Remaining CT abdomen/pelvis without contrast exam is negative. Comment: Preliminary interpretation made by [facility]. No critical discrepancy.
== END 2021-08-25 03:08 | disposition home or self-care (01) ==
LOC: ED 00:22
DX: K59.01 Slow transit constipation (principal); K31.9 Disease of stomach and duodenum, unspecified; E11.65 Type 2 diabetes mellitus with hyperglycemia; Z79.4 Long term (current) use of insulin; R10.31 Right lower quadrant pain; I10 Essential (primary) hypertension; G54.5 Neuralgic amyotrophy; U09.9 Post COVID-19 condition, unspecified; Z85.110 Personal history of malignant carcinoid tumor of bronchus and lung; J44.9 Chronic obstructive pulmonary disease, unspecified; Z79.891 Long term (current) use of opiate analgesic; Z79.899 Other long term (current) drug therapy
CPT/HCPCS: 36415; 74176; 80053; 81001; 82150; 82947; 83605; 83690; 85025; 93005; 96374; 96375; 96376; 99284; 99291; J1170; J1815; J1817; J2405

== ENCOUNTER 2021-09-01 10:22 | Observation (INO) | payer BC ==
--- NOTE | 2021-09-01 11:11 | ERPHSYRPT ---
- History of Present Illness Time Seen by Provider: 09/01/21 11:11 Historian: patient, old records Exam Limitations: no limitations Patient Subjective Stated Complaint: "Right side abd pain x1 week. Seen here in ER 1 wk ago and was told was constipated". Instructed to go home drink apple juice and take otc laxatives". Back today d/t increased abd pain and no bm for past 2 days. Triage Nursing Assessment: AAox3, c/o right side abd pain. Patient states worried about intestinal blockage d/t no bm past 2 days. Pain in right side upper and lower abd, vomiting off and on, liquid stools a few days ago. Denies problems with urination. Walked in. Physician History: pt is 55 yr old male with abd pain at least [address] except for old fx L3 and fecal stasis last week, some vomiting. nondistended with tender general right abdomen. no hx recent trauma. did have glucose of 500s at that visit one week ago. Timing/Duration: day(s) Activities at Onset: none Quality: cramping, sharpness Abdominal Pain Onset Location: RUQ, RLQ Pain Radiation: RUQ, RLQ Severity of Pain-Max: moderate Severity of Pain-Current: moderate Modifying Factors: Improves With: nothing Associated Symptoms: nausea, vomiting Previous symptoms: same symptoms as today Allergies/Adverse Reactions: lisinopril Allergy (Mild, Verified 02/17/21 22:06) Anaphylactic Reaction naproxen Adverse Reaction (Mild, Verified 02/17/21 22:06) Rash Home Medications: Fluticasone/Salmeterol 500/50* [Advair 500-50 Diskus] 1 puff IH BID PRN PRN 02/26/15 [History] Albuterol 2.5 mg/3 ml Neb [Proventil 2.5 mg/3 ml Neb] 3 ml IH QID PRN PRN 10/15/16 [History] Albuterol Sulfate [Proair Hfa] 2 puffs IH QIDPRN PRN 10/15/16 [History] Famotidine [Pepcid] 40 mg PO DAILY 07/23/20 [History] Fluticasone/Umeclidin/Vilanter [Trelegy Ellipta 100-62.5-25] 1 puff IH DAILY PRN PRN 07/23/20 [History] Omeprazole 40 mg PO DAILY 07/23/20 [History] Amlodipine Besylate 5 mg [Norvasc 5 mg] 5 mg PO DAILY 11/12/20 [History] Diphenoxylate HCl/Atropine [Lomotil] 3 udtab PO DAILY 11/12/20 [History] Insulin Glargine,Hum.rec.anlog [Basaglar Kwikpen U-100] 20 unit SQ DAILY 11/13/20 [History] Insulin Regular, Human [Novolin R Flexpen] 20 units SQ DAILY PRN PRN 11/13/20 [History] Gabapentin 300 mg [Neurontin 300 mg] 600 mg PO TID 02/17/21 [History] Hydrocodone/Acetaminophen [Hydrocodone-Acetamin 5-325 mg] 1 tab PO Q4HPRN PRN MDD 6 02/17/21 [History] Hx Tetanus, Diphtheria Vaccination/Date Given: Yes Hx Influenza Vaccination/Date Given: Yes Hx Pneumococcal Vaccination/Date Given: Yes Immunizations Up to Date: Yes Travel Risk - International Travel Have you traveled outside of the country in past 3 weeks: No - Coronavirus Screening Are you exhibiting any of the following symptoms?: No Close contact with a COVID-19 positive Pt in past 14-21 Days: No - Vaccine Status Have you recieved a Covid-19 vaccination: Yes [employer]: [employer] - Vaccination Dates Date of 2cond Vaccination (if applicable): January 2021 - Review of Systems Constitutional: No Fever, No Chills Eyes: No Symptoms Ears, Nose, & Throat: No Symptoms Respiratory: No Cough, No Dyspnea Cardiac: No Chest Pain, No Edema, No Syncope Abdominal/Gastrointestinal: Abdominal Pain, Nausea, Vomiting, No Diarrhea Genitourinary Symptoms: No Dysuria Musculoskeletal: No Symptoms, No Back Pain, No Neck Pain Skin: No Symptoms, No Rash Neurological: No Dizziness, No Focal Weakness, No Sensory Changes Psychological: No Symptoms Endocrine: No Symptoms Hematologic/Lymphatic: No Symptoms Immunological/Allergic: No Symptoms All Other Systems: Reviewed and Negative - Past Medical History Pertinent Past Medical History: Yes Neurological History: No Pertinent History ENT History: Cataracts Cardiac History: No Pertinent History Respiratory History: Asthma, COPD, Lung Cancer, Pneumonia, Other Endocrine Medical History: Diabetes Type II Musculoskeletal History: Fractures GI Medical History: Gallbladder Disease, Irritable Bowel History: No Pertinent History Psycho-Social History: No Pertinent History Male Reproductive Disorders: No Pertinent History Other Medical History: HAS BEEN IN REMISSION FOR LUNG CANCER X 10 YEARS. HX FRACTURE RIBS AND T6, T7 6 YEARS AGO AFTER FALL FROM LADDER. 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 both cataracts removed- suboptical implant in - Social History Smoking Status: Never smoker Exposure to second hand smoke: Yes Drug Use: none Patient Lives Alone: No Significant Family History: no pertinent family hx - Nursing Vital Signs Nursing Vital Signs: Initial Vital Signs Temperature 98.8 F 09/01/21 10:41 Pulse Rate 74 09/01/21 10:41 Respiratory Rate 16 09/01/21 10:41 Blood Pressure 187/113 09/01/21 10:41 Pain Scale Pain Intensity 4 - Physical Exam General Appearance: no apparent distress, alert Eye Exam: PERRL/EOMI, eyes nml inspection Ears, Nose, Throat Exam: normal ENT inspection, pharynx normal, moist mucous membranes Neck Exam: normal inspection, non-tender, supple, full range of motion Respiratory Exam: normal breath sounds, lungs clear, No respiratory distress Cardiovascular Exam: regular rate/rhythm, normal heart sounds Gastrointestinal/Abdomen Exam: soft, tenderness, guarding, No mass, No pulsatile mass, No rebound Male Genitalia Exam: normal genitalia, No hernia Rectal Exam: deferred Back Exam: normal inspection, normal range of motion, No CVA tenderness, No vertebral tenderness Extremity Exam: normal inspection, normal range of motion, pelvis stable Neurologic Exam: alert, oriented x 3, cooperative, normal mood/affect, nml cerebellar function, sensation nml, No motor deficits Skin Exam: normal color, warm, dry - Course Nursing assessment & vital signs reviewed: Yes EKG Interpreted by Me: Sinus Rhythm, Non-specific ST Changes, Other (incomplete RBBB) - Radiology Exams Abdomen X-ray Interpretation: Reviewed by me, Other (one area of slightly dilated bowel) - CT Exams Abdomen/Pelvis CT Interpretation: Tele-radiologist Report, Normal Appendix, Other (ileus with slight increase in jejunal dilation.) Ordered Tests: Active Orders 24 hr Category Date Time Status EKG-ER Only STAT Care 09/01/21 11:22 Active Enema STAT Care 09/01/21 11:25 Active Enema STAT Care 09/01/21 12:52 Active IV Insertion STAT Care 09/01/21 11:22 Active Pulse Oximetry (ED) STAT Care 09/01/21 11:22 Active ABDOMEN AND PELVIS W/0 CONTRAS [CT] Stat Exams 09/01/21 17:22 Taken OBSTR/ACUTE ABDOMEN SERIES Stat Exams 09/01/21 16:16 Taken AMYLASE Stat Lab 09/01/21 11:00 Completed CBC W DIFF Stat Lab 09/01/21 11:00 Completed CMP Stat Lab 09/01/21 11:00 Completed LIPASE Stat Lab 09/01/21 11:00 Completed Lactic Acid Stat Lab 09/01/21 11:22 Completed POCT GLUCOSE Stat Lab 09/01/21 10:59 Completed POCT GLUCOSE Stat Lab 09/01/21 14:32 Completed TROPONIN Q3H Lab 09/01/21 11:00 Completed UA W/RFX UR CULTURE Stat Lab 09/01/21 12:49 Completed Medication Summary Discontinued Medications Generic Name Dose Route Start Last Admin Trade Name Freq PRN Reason Stop Dose Admin Diphenhydramine HCl 25 mg 09/01/21 11:22 09/01/21 11:36 Diphenhydramine Hcl 50 Mg/Ml Vial IV 09/01/21 11:23 25 mg STAT ONE Administration Diphenhydramine HCl Confirm 09/01/21 11:29 Diphenhydramine Hcl 50 Mg/Ml Vial Administered 09/01/21 11:30 Dose 50 mg .ROUTE .STK-MED ONE Sodium Chloride 1,000 mls @ 999 mls/hr 09/01/21 11:22 09/01/21 12:49 Sodium Chloride 0.9% 1000 Ml IV 09/01/21 12:22 Infused .Q1H1M STA Infusion Sodium Chloride Confirm 09/01/21 11:30 Sodium Chloride 0.9% 1000 Ml Administered 09/01/21 11:31 Dose 1,000 mls @ ud .ROUTE .STK-MED ONE Sodium Chloride 1,000 mls @ 999 mls/hr 09/01/21 14:41 09/01/21 16:06 Sodium Chloride 0.9% 1000 Ml IV 09/01/21 15:41 Infused .Q1H1M STA Infusion Sodium Chloride Confirm 09/01/21 14:48 Sodium Chloride 0.9% 1000 Ml Administered 09/01/21 14:49 Dose 1,000 mls @ ud .ROUTE .STK-MED ONE Insulin Human Regular 10 unit 09/01/21 12:53 09/01/21 12:57 Insulin Regular, Human 1 Unit IV 09/01/21 12:54 10 unit STAT ONE Administration Insulin Human Regular Confirm 09/01/21 12:57 Insulin Regular, Human 1 Unit Administered 09/01/21 12:58 Dose 10 unit .ROUTE .STK-MED ONE Magnesium Citrate 296 ml 09/01/21 12:51 09/01/21 12:58 Magnesium Citrate 296 Ml Solution PO 09/01/21 12:52 296 ml STAT ONE Administration Magnesium Citrate Confirm 09/01/21 12:55 Magnesium Citrate 296 Ml Solution Administered 09/01/21 12:56 Dose 296 ml .ROUTE .STK-MED ONE Morphine Sulfate 4 mg 09/01/21 11:22 09/01/21 11:38 Morphine Sulfate 4 Mg/Ml Injection IV 09/01/21 11:23 4 mg STAT ONE Administration Morphine Sulfate Confirm 09/01/21 11:29 Morphine Sulfate 4 Mg/Ml Injection Administered 09/01/21 11:30 Dose 4 mg .ROUTE .STK-MED ONE Ondansetron HCl 4 mg 09/01/21 11:22 09/01/21 11:33 Ondansetron Hcl 4 Mg/2 Ml Vial IV 09/01/21 11:23 4 mg STAT ONE Administration Ondansetron HCl Confirm 09/01/21 11:29 Ondansetron Hcl 4 Mg/2 Ml Vial Administered 09/01/21 11:30 Dose 4 mg .ROUTE .STK-MED ONE Lab/Rad Data: Laboratory Result Diagrams 09/01/21 11:00 09/01/21 11:00 Laboratory Results 09/01/21 09/01/21 09/01/21 Range/Units 14:32 12:49 11:22 WBC (4.0-10.5) K/mm3 RBC (4.1-5.6) M/mm3 Hgb (12.5-18.0) gm/dl Hct (42-50) % MCV (78-100) fl MCH (26-32) pg MCHC (32-36) g/dl RDW (11.5-14.0) % Plt Count (150-450) K/mm3 MPV (7.5-11.0) fl Gran % (36.0-66.0) % Eos # (Auto) (0-0.5) Absolute Lymphs (auto) (1.0-4.6) Absolute Monos (auto) (0.0-1.3) Lymphocytes % (24.0-44.0) % Monocytes % (0.0-12.0) % Eosinophils % (0.00-5.0) % Basophils % (0.0-0.4) % Absolute Granulocytes (1.4-6.9) Basophils # (0-0.4) Sodium (137-145) mmol/L Potassium (3.5-5.1) mmol/L Chloride (98-107) mmol/L Carbon Dioxide (22-30) mmol/L Anion Gap (5-15) MEQ/L BUN (9-20) mg/dL Creatinine (0.66-1.25) mg/dL Estimated GFR ML/MIN Glucose (74-106) mg/dL POC Glucometer 237 H (74 to 106) mg/dL Lactic Acid 1.3 (0.4-2.0) Calcium (8.4-10.2) mg/dL Total Bilirubin (0.2-1.3) mg/dL AST (17-59) U/L ALT (0-50) U/L Alkaline Phosphatase (38-126) U/L Troponin I (0.000-0.034) ng/mL Serum Total Protein (6.3-8.2) g/dL Albumin (3.5-5.0) g/dL Amylase (30-110) U/L Lipase (23-300) U/L Urine Color STRAW (YELLOW) Urine Appearance CLEAR (CLEAR) Urine pH 5.0 (5-6) Ur Specific [place] 1.030 (1.005-1.025) Urine Protein NEGATIVE (Negative) Urine Ketones SMALL (NEGATIVE) Urine Blood NEGATIVE (0-5) Kaden/ul Urine Nitrite NEGATIVE (NEGATIVE) Urine Bilirubin NEGATIVE (NEGATIVE) Urine Urobilinogen NEGATIVE (0-1) mg/dL Ur Leukocyte Esterase NEGATIVE (NEGATIVE) Urine WBC (Auto) NONE (0-5) /HPF Urine RBC (Auto) NONE (0-2) /HPF U Epithel Cells (Auto) NONE (FEW) /HPF Urine Bacteria (Auto) NONE (NEGATIVE) /HPF Urine Culture Reflexed NO (NO) Urine Glucose >=500 (NEGATIVE) mg/dL 09/01/21 09/01/21 09/01/21 Range/Units 11:00 11:00 11:00 WBC 8.1 (4.0-10.5) K/mm3 RBC 4.65 (4.1-5.6) M/mm3 Hgb 14.1 (12.5-18.0) gm/dl Hct 40.0 L (42-50) % MCV 86.0 (78-100) fl MCH 30.3 (26-32) pg MCHC 35.3 (32-36) g/dl RDW 12.7 (11.5-14.0) % Plt Count 255 (150-450) K/mm3 MPV 9.5 (7.5-11.0) fl Gran % 65.6 (36.0-66.0) % Eos # (Auto) 0.08 (0-0.5) Absolute Lymphs (auto) 2.11 (1.0-4.6) Absolute Monos (auto) 0.56 (0.0-1.3) Lymphocytes % 26.0 (24.0-44.0) % Monocytes % 6.9 (0.0-12.0) % Eosinophils % 1.0 (0.00-5.0) % Basophils % 0.5 (0.0-0.4) % Absolute Granulocytes 5.33 (1.4-6.9) Basophils # 0.04 (0-0.4) Sodium 132 L (137-145) mmol/L Potassium 3.9 (3.5-5.1) mmol/L Chloride 98 (98-107) mmol/L Carbon Dioxide 26 (22-30) mmol/L Anion Gap 11.7 (5-15) MEQ/L BUN 28 H (9-20) mg/dL Creatinine 0.98 (0.66-1.25) mg/dL Estimated GFR > 60.0 ML/MIN Glucose 376 H (74-106) mg/dL POC Glucometer (74 to 106) mg/dL Lactic Acid (0.4-2.0) Calcium 9.0 (8.4-10.2) mg/dL Total Bilirubin 0.60 (0.2-1.3) mg/dL AST 17 (17-59) U/L ALT 16 (0-50) U/L Alkaline Phosphatase 89 (38-126) U/L Troponin I < 0.012 (0.000-0.034) ng/mL Serum Total Protein 6.7 (6.3-8.2) g/dL Albumin 4.2 (3.5-5.0) g/dL Amylase 62 (30-110) U/L Lipase 207 (23-300) U/L Urine Color (YELLOW) Urine Appearance (CLEAR) Urine pH (5-6) Ur Specific [place] (1.005-1.025) Urine Protein (Negative) Urine Ketones (NEGATIVE) Urine Blood (0-5) Kaden/ul Urine Nitrite (NEGATIVE) Urine Bilirubin (NEGATIVE) Urine Urobilinogen (0-1) mg/dL Ur Leukocyte Esterase (NEGATIVE) Urine WBC (Auto) (0-5) /HPF Urine RBC (Auto) (0-2) /HPF U Epithel Cells (Auto) (FEW) /HPF Urine Bacteria (Auto) (NEGATIVE) /HPF Urine Culture Reflexed (NO) Urine Glucose (NEGATIVE) mg/dL 09/01/21 Range/Units 10:59 WBC (4.0-10.5) K/mm3 RBC (4.1-5.6) M/mm3 Hgb (12.5-18.0) gm/dl Hct (42-50) % MCV (78-100) fl MCH (26-32) pg MCHC (32-36) g/dl RDW (11.5-14.0) % Plt Count (150-450) K/mm3 MPV (7.5-11.0) fl Gran % (36.0-66.0) % Eos # (Auto) (0-0.5) Absolute Lymphs (auto) (1.0-4.6) Absolute Monos (auto) (0.0-1.3) Lymphocytes % (24.0-44.0) % Monocytes % (0.0-12.0) % Eosinophils % (0.00-5.0) % Basophils % (0.0-0.4) % Absolute Granulocytes (1.4-6.9) Basophils # (0-0.4) Sodium (137-145) mmol/L Potassium (3.5-5.1) mmol/L Chloride (98-107) mmol/L Carbon Dioxide (22-30) mmol/L Anion Gap (5-15) MEQ/L BUN (9-20) mg/dL Creatinine (0.66-1.25) mg/dL Estimated GFR ML/MIN Glucose (74-106) mg/dL POC Glucometer 385 H (74 to 106) mg/dL Lactic Acid (0.4-2.0) Calcium (8.4-10.2) mg/dL Total Bilirubin (0.2-1.3) mg/dL AST (17-59) U/L ALT (0-50) U/L Alkaline Phosphatase (38-126) U/L Troponin I (0.000-0.034) ng/mL Serum Total Protein (6.3-8.2) g/dL Albumin (3.5-5.0) g/dL Amylase (30-110) U/L Lipase (23-300) U/L Urine Color (YELLOW) Urine Appearance (CLEAR) Urine pH (5-6) Ur Specific [place] (1.005-1.025) Urine Protein (Negative) Urine Ketones (NEGATIVE) Urine Blood (0-5) Kaden/ul Urine Nitrite (NEGATIVE) Urine Bilirubin (NEGATIVE) Urine Urobilinogen (0-1) mg/dL Ur Leukocyte Esterase (NEGATIVE) Urine WBC (Auto) (0-5) /HPF Urine RBC (Auto) (0-2) /HPF U Epithel Cells (Auto) (FEW) /HPF Urine Bacteria (Auto) (NEGATIVE) /HPF Urine Culture Reflexed (NO) Urine Glucose (NEGATIVE) mg/dL - Progress Progress: improved, re-examined Progress Note: 09/01/21 13:09 taking time for the enemas to work and observing for results and any additional symptoms. 09/01/21 14:32 pt had small stool result, and glucose has improved to about his average in mid to low 200s. He feels that bowels are about to move and would like to stay a while longer to confirm that in ER. 09/01/21 16:15 pt did not have further result so will check abd film. 09/01/21 17:20 unfortunately the abd film does show a small somewhat dilated loop and tenderness persists and pt not yet comfortable to leave and would like further evaluatoin. discussed risks and benefits and will proceed for comparison CT. but this will add to time to eval. 09/01/21 18:[address] reading which has been taking more time recently. 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 09/01/21 18:27 CT a slightly increased in dilation and ileus. Discussed with Dr. Tinoco amd pt and will place in on obs anbd routine surg consult for in am. 09/01/21 18:29 Discussed with .: Catalina Will see patient in: hospital (observation) Counseled pt/family regarding: lab results, diagnosis, need for follow-up - Departure Departure Disposition: Observation Clinical Impression: Adynamic ileus Condition: Good Critical Care Time: No Referrals: HARRISON VENTURA MD [Primary Care Provider] - Follow up/PCP as directed Additional Instructions: follow-up blood pressure with your
[2021-09-01] MEDS ORDERED: MORPHINE SULFATE 4 MG INJ IV ONE (11:22)
[2021-09-01] MEDS ORDERED: BENADRYL 50 MG/ML IV ONE (11:22)
[2021-09-01] MEDS ORDERED: Sodium Chloride 0.9% 1000 ML 1,000 ML IV STA ×2 (11:22→14:41)
[2021-09-01] MEDS ORDERED: Zofran 4 MG/2 ML VIAL IV ONE (11:22)
[2021-09-01] MEDS ORDERED: Zofran 4 MG/2 ML VIAL ONE (11:29)
[2021-09-01] MEDS ORDERED: MORPHINE SULFATE 4 MG INJ ONE (11:29)
[2021-09-01] MEDS ORDERED: BENADRYL 50 MG/ML ONE (11:29)
[2021-09-01] MEDS ORDERED: Sodium Chloride 0.9% 1000 ML 1,000 ML ONE ×2 (11:30→14:48)
[2021-09-01 11:33] LABS: Absolute Neutrophil Ct (ANC) 5.33 (1.4-6.9); Basophil (Absolute #) 0.04 (0-0.4); Eosinophil (Absolute #) 0.08 (0-0.5); Hemoglobin 14.1 gm/dl (12.5-18.0); Lymphocyte (Absolute #) 2.11 (1.0-4.6); Mean Corpuscular Hemoglobin 30.3 pg (26-32); Mean Corpuscular Hgb Concent. 35.3 g/dl (32-36); Mean Platelet Volume 9.5 fl (7.5-11.0); Monocyte (Absolute #) 0.56 (0.0-1.3); Monocytes % 6.9 % (0.0-12.0); Neutrophil % 65.6 % (36.0-66.0); Platelet Count 255 K/mm3 (150-450); Red Blood Count 4.65 M/mm3 (4.1-5.6); Red Cell Distribution Width 12.7 % (11.5-14.0); White Blood Count 8.1 K/mm3 (4.0-10.5)
[2021-09-01 12:10] LABS: ALBUMIN 4.2 g/dL (3.5-5.0); ALKALINE PHOSPHATASE 89 U/L (38-126); AMYLASE 62 U/L (30-110); ANION GAP 11.7 MEQ/L (5-15); BLOOD UREA NITROGEN 28 mg/dL (9-20); CHLORIDE 98 mmol/L (98-107); Carbon Dioxide 26 mmol/L (22-30); Creatinine 1 0.98 mg/dL (0.66-1.25); EST GLOMERULAR FILTRATION RATE > 60.0 ML/MIN; Glucose 376 mg/dL (74-106); LIPASE 207 U/L (23-300); Potassium 3.9 mmol/L (3.5-5.1); SGOT/AST 17 U/L (17-59); SGPT/ALT 16 U/L (0-50); SODIUM 132 mmol/L (137-145); Total Protein 6.7 g/dL (6.3-8.2)
[2021-09-01] MEDS ORDERED: CITROMA 296 ML PO ONE (12:51)
[2021-09-01] MEDS ORDERED: HUMULIN R IV ONE (12:53)
[2021-09-01] MEDS ORDERED: CITROMA 296 ML ONE (12:55)
[2021-09-01] MEDS ORDERED: HUMULIN R ONE (12:57)
[2021-09-01 13:04] LABS: Appearance CLEAR (CLEAR); Bilirubin NEGATIVE (NEGATIVE); Blood NEGATIVE Ery/ul (0-5); Glucose >=500 mg/dL (NEGATIVE); Ketones SMALL (NEGATIVE); Leukocyte Esterase NEGATIVE (NEGATIVE); Nitrite NEGATIVE (NEGATIVE); Protein,Urine Dip NEGATIVE (Negative); Urobilinogen NEGATIVE mg/dL (0-1)
[2021-09-01 19:20] LABS: INFLUENZA A NEGATIVE (NEGATIVE); INFLUENZA B NEGATIVE (NEGATIVE); RESPIRATORY SYNCTIAL VIRUS NEGATIVE (Negative); SARS-CoV-2 Xpert Express NEGATIVE (NEGATIVE)
[2021-09-01] MEDS ORDERED: HUMULIN R SQ PRN (20:38)
[2021-09-01] MEDS ORDERED: TYLENOL 325 MG PO PRN (20:38)
[2021-09-01] MEDS ORDERED: MORPHINE SULFATE 4 MG INJ IV PRN (20:38)
[2021-09-01] MEDS ORDERED: Zofran 4 MG/2 ML VIAL IV PRN (20:38)
[2021-09-01] MEDS ORDERED: NORVASC 5 MG PO ONE (20:38)
[2021-09-01] MEDS ORDERED: Sodium Chloride 0.9% 1000 ML 1,000 ML IV SCH (20:38)
[2021-09-01] MEDS ORDERED: VENTOLIN COMMON CANISTER IH PRN (21:58)
[2021-09-01] MEDS ORDERED: HUMALOG ONE (22:24)
[2021-09-01] MEDS: NEURONTIN 300 MG PO SCH (22:25)
[2021-09-01] MEDS: HUMALOG SQ PRN (22:33)
[2021-09-02 05:23] LABS: Absolute Neutrophil Ct (ANC) 4.19 (1.4-6.9); Basophil (Absolute #) 0.04 (0-0.4); Eosinophil % 1.3 % (0.00-5.0); Hemoglobin 13.6 gm/dl (12.5-18.0); Lymphocyte (Absolute #) 2.73 (1.0-4.6); Lymphocytes % 35.7 % (24.0-44.0); Mean Cell Volume 86.1 fl (78-100); Mean Corpuscular Hgb Concent. 34.9 g/dl (32-36); Mean Platelet Volume 9.2 fl (7.5-11.0); Monocyte (Absolute #) 0.58 (0.0-1.3); Monocytes % 7.6 % (0.0-12.0); Neutrophil % 54.9 % (36.0-66.0); Platelet Count 234 K/mm3 (150-450); Red Blood Count 4.53 M/mm3 (4.1-5.6); Red Cell Distribution Width 12.9 % (11.5-14.0); White Blood Count 7.6 K/mm3 (4.0-10.5)
[2021-09-02 05:43] LABS: ALBUMIN 3.6 g/dL (3.5-5.0); ALKALINE PHOSPHATASE 91 U/L (38-126); ANION GAP 8.6 MEQ/L (5-15); BLOOD UREA NITROGEN 21 mg/dL (9-20); CHLORIDE 101 mmol/L (98-107); Calcium 8.5 mg/dL (8.4-10.2); Carbon Dioxide 29 mmol/L (22-30); Creatinine 1 0.78 mg/dL (0.66-1.25); EST GLOMERULAR FILTRATION RATE > 60.0 ML/MIN; Glucose 141 mg/dL (74-106); Potassium 3.3 mmol/L (3.5-5.1); SGOT/AST 178 U/L (17-59); SGPT/ALT 74 U/L (0-50); SODIUM 135 mmol/L (137-145); Total Protein 6.1 g/dL (6.3-8.2)
[2021-09-02] MEDS: Advair Hfa 230/21 Mcg COMMON CANISTER IH SCH ×2 (06:54→07:08)
[2021-09-02 08:07] VITALS: O2SAT 98
[2021-09-02] MEDS: HUMALOG SQ PRN ×2 (08:40→12:07)
--- NOTE | 2021-09-02 08:49 | XRAY ---
Indication: Right abdomen pain. Constipation. Multiple contiguous axial images obtained through the abdomen and pelvis without contrast. Comparison: August 25, 2021. Lung bases again demonstrates right midlung pleural-parenchymal fibrosis/scarring. Heart is not enlarged. Noncontrasted stomach and bowel loops are nonobstructed again with normal appendix. There is now mild fluid distended jejunal bowel loops up to 2.6 cm, ileus versus enteritis. There remains moderate diffuse scattered colonic fecal debris throughout. Again cholecystectomy. No free fluid/air. Remaining liver, pancreas, spleen, adrenal glands, kidneys, ureters, and bladder are unremarkable for noncontrast exam. Again minimal aortoiliac calcifications without AAA. Osseous structures again emesis mild osteopenia, degenerative changes throughout the thoracal lumbar spine, and remote L3 superior endplate fracture. Impression: 1. Mild fluid distended jejunum, ileus versus enteritis. 2. Stable diffuse fecal stasis and chronic bony findings. Comment: Preliminary interpretation made by [facility]. No critical discrepancy
--- NOTE | 2021-09-02 08:51 | XRAY ---
Indication: Constipation. Comparison: Chest exam November 28, 2020. 2 view abdomen nonacute and nonobstructed with mild diffuse fecal debris and cholecystotomy clips. Solid organs unremarkable. Osseous structures intact with mild osteopenia and mild degenerative changes throughout the spine. Single frontal chest again demonstrates right base fibrosis/scarring and right mid lung calcified granuloma. Remaining heart and lungs unremarkable. Bony thorax intact. Impression: 1. Fecal stasis without obstruction. 2. Nonacute one view chest with chronic features.
[2021-09-02] MEDS ORDERED: NORCO 5/325 MG PO PRN (10:22)
[2021-09-02] MEDS ORDERED: PROVENTIL 2.5 MG/3 ML NEB IH PRN (10:22)
[2021-09-02] MEDS ORDERED: ADVAIR 500-50 DISKUS IH PRN (10:22)
[2021-09-02] MEDS ORDERED: Ventolin Hfa MDI IH PRN (10:22)
[2021-09-02] MEDS ORDERED: MOTRIN 600 MG PO PRN (10:22)
[2021-09-02] MEDS: NEURONTIN 300 MG PO SCH (10:30)
[2021-09-02] MEDS ORDERED: HUMULIN R SQ PRN (10:33)
[2021-09-02] MEDS ORDERED: NORVASC 5 MG PO SCH (11:00)
[2021-09-02] MEDS ORDERED: Protonix 40MG Tablet PO SCH (11:00)
[2021-09-02] MEDS ORDERED: Pepcid 20 MG PO SCH (11:00)
[2021-09-02] MEDS ORDERED: Lomotil PO SCH (11:00)
[2021-09-02] MEDS ORDERED: Lantus Insulin SQ SCH (11:00)
[2021-09-02 12:06] VITALS: BP 162/93; PULSE 65
--- NOTE | 2021-09-02 18:01 | PCM.SSS ---
History of Present Illness - Chief Complaint Chief Complaint: abdominal pain for 1 days History of Present Illness: is a 55 year old male with abd pain at least [address] ex cept for old fx L3 and fecal stasis last week, some vomiting. nondistended with tender general right abdomen. no hx recent trauma. did have glucose of 500s at that visit one week ago. - Review of Systems Constitutional: No Fever, No Chills Eyes: No Symptoms Ears, Nose, & Throat: No Symptoms Respiratory: No Cough, No Short Of Breath Cardiac: No Chest Pain, No Edema, No Syncope Abdominal/Gastrointestinal: Abdominal Pain, Constipation, No Nausea, No Vomiting, No Diarrhea Genitourinary Symptoms: No Dysuria Musculoskeletal: No Back Pain, No Neck Pain Skin: No Rash Neurological: No Dizziness, No Focal Weakness, No Sensory Changes Psychological: No Symptoms Endocrine: No Symptoms Hematologic/Lymphatic: No Symptoms Immunological/Allergic: No Symptoms Medications & Allergies Home Medications: Home Medication List Fluticasone/Salmeterol 500/50* [Advair 500-50 Diskus] 1 puff IH BID PRN PRN 02/26/15 [History Confirmed 07/06/21] Albuterol 2.5 mg/3 ml Neb [Proventil 2.5 mg/3 ml Neb] 3 ml IH QID PRN PRN 10/15/16 [History Confirmed 07/06/21] Albuterol Sulfate [Proair Hfa] 2 puffs IH QIDPRN PRN 10/15/16 [History Confirmed 07/06/21] Famotidine [Pepcid] 40 mg PO DAILY 07/23/20 [History Confirmed 07/06/21] Fluticasone/Umeclidin/Vilanter [Trelegy Ellipta 100-62.5-25] 1 puff IH DAILY PRN PRN 07/23/20 [History Confirmed 07/06/21] Omeprazole 40 mg PO DAILY 07/23/20 [History Confirmed 07/06/21] Amlodipine Besylate 5 mg [Norvasc 5 mg] 5 mg PO DAILY 11/12/20 [History Confirmed 07/06/21] Insulin Glargine,Hum.rec.anlog [Tremayne Oseguera U-100] 20 unit SQ BID 11/13/20 [History Confirmed 07/06/21] Insulin Regular, Human [Novolin R Flexpen] 20 units SQ DAILY PRN PRN 11/13/20 [History Confirmed 07/06/21] Gabapentin 300 mg [Neurontin 300 mg] 600 mg PO BID 02/17/21 [History Confirmed 07/06/21] Hydrocodone/Acetaminophen [Hydrocodone-Acetamin 5-325 mg] 1 tab PO Q4HPRN PRN MDD 6 02/17/21 [History Confirmed 07/06/21] Ibuprofen 600 mg PO Q6HPRN PRN 10 Days #20 tablet 02/17/21 [Rx Confirmed 07/06/21] Allergies/Adverse Reactions: Allergies Allergy/AdvReac Type Severity Reaction Status Date / Time lisinopril Allergy Mild Anaphylactic Verified 02/17/21 22:06 Reaction naproxen AdvReac Mild Rash Verified 02/17/21 22:06 - Past Medical History Past Medical History: Yes Neurological History: No Pertinent History ENT History: Cataracts Cardiac History: No Pertinent History Respiratory History: Asthma, COPD, Lung Cancer, Pneumonia, Other Endocrine Medical History: Diabetes Type II Musculoskelatal History: Fractures GI Medical History: Gallbladder Disease, Irritable Bowel History: No Pertinent History Pyscho-Social History: No Pertinent History Male Reproductive Disorders: No Pertinent History Comment: HAS BEEN IN REMISSION FOR LUNG CANCER X 10 YEARS. HX FRACTURE RIBS AND T6, T7 6 YEARS AGO AFTER FALL FROM LADDER. 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 both cataracts removed- suboptical implant in - Social History Smoking Status: Never smoker Exposure to second hand smoke: Yes Alcohol: None Drug Use: none Significant Family History: no pertinent family hx - Physical Exam Vital Signs: Vital Signs - 24 hr Temp Pulse Resp BP Pulse Ox 09/02/21 12:00 98.0 F 65 18 162/93 98 09/02/21 08:00 98.1 F 69 14 168/89 98 01/31/22 06:56 60 16 95 09/02/21 04:00 97.9 F 62 18 117/74 98 09/02/21 00:00 97.9 F 65 18 109/59 96 09/01/21 22:35 164/90 09/01/21 21:55 67 16 97 09/01/21 21:00 37.1 F 63 16 178/107 98 09/01/21 20:38 97 General Appearance: no apparent distress, alert Neurologic Exam: alert, oriented x 3, cooperative, normal mood/affect, nml cerebellar function, nml station & gait, sensation nml, No motor deficits Eye Exam: PERRL/EOMI, eyes nml inspection Ears, Nose, Throat Exam: normal ENT inspection, TMs normal, pharynx normal, moist mucous membranes Neck Exam: normal inspection, non-tender, supple, full range of motion Respiratory Exam: normal breath sounds, lungs clear, No respiratory distress Cardiovascular Exam: regular rate/rhythm, normal heart sounds, normal peripheral pulses Gastrointestinal/Abdomen Exam: soft, distention, No tenderness, No mass Back Exam: normal inspection, normal range of motion, No CVA tenderness, No vertebral tenderness Extremity Exam: normal inspection, normal range of motion, pelvis stable Skin Exam: normal color, warm, dry, No rash Lymphatic Exam: No adenopathy Results - Labs Lab/Micro Results: Lab Results-Last 24 Hours 09/01/21 09/01/21 09/02/21 Range/Units 18:37 22:19 04:30 WBC 7.6 (4.0-10.5) K/mm3 RBC 4.53 (4.1-5.6) M/mm3 Hgb 13.6 (12.5-18.0) gm/dl Hct 39.0 L (42-50) % MCV 86.1 (78-100) fl MCH 30.0 (26-32) pg MCHC 34.9 (32-36) g/dl RDW 12.9 (11.5-14.0) % Plt Count 234 (150-450) K/mm3 MPV 9.2 (7.5-11.0) fl Gran % 54.9 (36.0-66.0) % Eos # (Auto) 0.10 (0-0.5) Absolute Lymphs (auto) 2.73 (1.0-4.6) Absolute Monos (auto) 0.58 (0.0-1.3) Lymphocytes % 35.7 (24.0-44.0) % Monocytes % 7.6 (0.0-12.0) % Eosinophils % 1.3 (0.00-5.0) % Basophils % 0.5 (0.0-0.4) % Absolute Granulocytes 4.19 (1.4-6.9) Basophils # 0.04 (0-0.4) Sodium (137-145) mmol/L Potassium (3.5-5.1) mmol/L Chloride (98-107) mmol/L Carbon Dioxide (22-30) mmol/L Anion Gap (5-15) MEQ/L BUN (9-20) mg/dL Creatinine (0.66-1.25) mg/dL Estimated GFR ML/MIN Glucose (74-106) mg/dL POC Glucometer 217 H (74 to 106) mg/dL Lactic Acid (0.4-2.0) Calcium (8.4-10.2) mg/dL Total Bilirubin (0.2-1.3) mg/dL AST (17-59) U/L ALT (0-50) U/L Alkaline Phosphatase (38-126) U/L Serum Total Protein (6.3-8.2) g/dL Albumin (3.5-5.0) g/dL Influenza Type A Ag NEGATIVE (NEGATIVE) Influenza Type B Ag NEGATIVE (NEGATIVE) RSV (PCR) NEGATIVE (Negative) SARS-CoV-2 (PCR) NEGATIVE (NEGATIVE) 09/02/21 09/02/21 09/02/21 Range/Units 04:30 04:30 07:44 WBC (4.0-10.5) K/mm3 RBC (4.1-5.6) M/mm3 Hgb (12.5-18.0) gm/dl Hct (42-50) % MCV (78-100) fl MCH (26-32) pg MCHC (32-36) g/dl RDW (11.5-14.0) % Plt Count (150-450) K/mm3 MPV (7.5-11.0) fl Gran % (36.0-66.0) % Eos # (Auto) (0-0.5) Absolute Lymphs (auto) (1.0-4.6) Absolute Monos (auto) (0.0-1.3) Lymphocytes % (24.0-44.0) % Monocytes % (0.0-12.0) % Eosinophils % (0.00-5.0) % Basophils % (0.0-0.4) % Absolute Granulocytes (1.4-6.9) Basophils # (0-0.4) Sodium 135 L (137-145) mmol/L Potassium 3.3 L (3.5-5.1) mmol/L Chloride 101 (98-107) mmol/L Carbon Dioxide 29 (22-30) mmol/L Anion Gap 8.6 (5-15) MEQ/L BUN 21 H (9-20) mg/dL Creatinine 0.78 (0.66-1.25) mg/dL Estimated GFR > 60.0 ML/MIN Glucose 141 H (74-106) mg/dL POC Glucometer 176 H (74 to 106) mg/dL Lactic Acid 0.9 (0.4-2.0) Calcium 8.5 (8.4-10.2) mg/dL Total Bilirubin 0.80 (0.2-1.3) mg/dL AST 178 H (17-59) U/L ALT 74 H (0-50) U/L Alkaline Phosphatase 91 (38-126) U/L Serum Total Protein 6.1 L (6.3-8.2) g/dL Albumin 3.6 (3.5-5.0) g/dL Influenza Type A Ag (NEGATIVE) Influenza Type B Ag (NEGATIVE) RSV (PCR) (Negative) SARS-CoV-2 (PCR) (NEGATIVE) 09/02/21 Range/Units 11:46 WBC (4.0-10.5) K/mm3 RBC (4.1-5.6) M/mm3 Hgb (12.5-18.0) gm/dl Hct (42-50) % MCV (78-100) fl MCH (26-32) pg MCHC (32-36) g/dl RDW (11.5-14.0) % Plt Count (150-450) K/mm3 MPV (7.5-11.0) fl Gran % (36.0-66.0) % Eos # (Auto) (0-0.5) Absolute Lymphs (auto) (1.0-4.6) Absolute Monos (auto) (0.0-1.3) Lymphocytes % (24.0-44.0) % Monocytes % (0.0-12.0) % Eosinophils % (0.00-5.0) % Basophils % (0.0-0.4) % Absolute Granulocytes (1.4-6.9) Basophils # (0-0.4) Sodium (137-145) mmol/L Potassium (3.5-5.1) mmol/L Chloride (98-107) mmol/L Carbon Dioxide (22-30) mmol/L Anion Gap (5-15) MEQ/L BUN (9-20) mg/dL Creatinine (0.66-1.25) mg/dL Estimated GFR ML/MIN Glucose (74-106) mg/dL POC Glucometer 196 H (74 to 106) mg/dL Lactic Acid (0.4-2.0) Calcium (8.4-10.2) mg/dL Total Bilirubin (0.2-1.3) mg/dL AST (17-59) U/L ALT (0-50) U/L Alkaline Phosphatase (38-126) U/L Serum Total Protein (6.3-8.2) g/dL Albumin (3.5-5.0) g/dL Influenza Type A Ag (NEGATIVE) Influenza Type B Ag (NEGATIVE) RSV (PCR) (Negative) SARS-CoV-2 (PCR) (NEGATIVE) Accuchecks Date 09/02/21 Date 09/02/21 Time 11:46 Time 07:45 - Radiology Impressions Radiology Exams & Impressions: Radiology Procedures Category Date Time Status ABDOMEN AND PELVIS W/0 CONTRAS [CT] Stat Exams 09/01/21 17:22 Completed OBSTR/ACUTE ABDOMEN SERIES Stat Exams 09/01/21 16:16 Completed Assessment/Plan (1) Abdominal pain Status: Acute Qualifiers: Abdominal location: right lower quadrant Qualified Code(s): R10.31 - Right lower quadrant pain Assessment & Plan: Chief Complaint Diagnosis abdominal pain for 1 days Allergies Allergy/AdvReac Type Severity Reaction Status Date / Time lisinopril Allergy Mild Anaphylactic Verified 02/17/21 22:06 Reaction naproxen AdvReac Mild Rash Verified 02/17/21 22:06 Vital Signs (Last 24 hours) Temp Pulse Resp BP Pulse Ox 09/02/21 12:00 98.0 F 65 18 162/93 98 09/02/21 08:00 98.1 F 69 14 168/89 98 09/02/21 06:56 60 16 95 09/02/21 04:00 97.9 F 62 18 117/74 98 09/02/21 00:00 97.9 F 65 18 109/59 96 09/01/21 22:35 164/90 09/01/21 21:55 67 16 97 09/01/21 21:00 37.1 F 63 16 178/107 98 09/01/21 20:38 97 Current Medications Discontinued Medications Generic Name Dose Route Start Last Admin Trade Name Freq PRN Reason Stop Dose Admin Acetaminophen 650 mg 09/01/21 20:38 09/02/21 08:46 Acetaminophen 325 Mg Tablet PO 10/01/21 20:37 650 mg Q4H PRN PRN Administration PAIN AND/OR FEVER Hydrocodone Bitart/Acetaminophen 1 tab 09/02/21 10:22 Hydrocodone/Apap 5/325 Mg Tablet PO 09/07/21 10:21 Q4HPRN PRN PAIN Albuterol Sulfate 4 puff 09/01/21 21:58 Albuterol Common Canister Inhaler 10/01/21 21:57 Q4H PRN PRN SHORTNESS OF BREATH/WHEEZING Albuterol Sulfate gm 09/02/21 10:22 Albuterol Sulfate 8 Gm Mdi Hfa 10/02/21 10:21 QIDPRN PRN sob Albuterol Sulfate 2.5 mg 09/02/21 10:22 Albuterol Sulfate 2.5 Mg/3 Ml Neb 10/02/21 10:21 QID PRN PRN sob Amlodipine Besylate 5 mg 09/01/21 20:38 09/01/21 21:21 Amlodipine Besylate 5 Mg Tablet PO 09/01/21 20:39 5 mg STAT ONE Administration Amlodipine Besylate 5 mg 09/02/21 11:00 09/02/21 11:04 Amlodipine Besylate 5 Mg Tablet PO 10/02/21 10:59 5 mg DAILY LEONIE Administration Diphenhydramine HCl 25 mg 09/01/21 11:22 09/01/21 11:36 Diphenhydramine Hcl 50 Mg/Ml Vial IV 09/01/21 11:23 25 mg STAT ONE Administration Diphenhydramine HCl Confirm 09/01/21 11:29 Diphenhydramine Hcl 50 Mg/Ml Vial Administered 09/01/21 11:30 Dose 50 mg .ROUTE .STK-MED ONE Diphenoxylate HCl/Atropine 3 tablet 09/02/21 11:00 Diphenoxylate Hcl/Atropine 1 Tablet PO 10/02/21 10:59 DAILY LEONIE Famotidine 40 mg 09/02/21 11:00 09/02/21 11:04 Famotidine 20 Mg Tablet PO 10/02/21 10:59 40 mg DAILY LEONIE Administration Gabapentin 600 mg 09/01/21 22:15 09/02/21 10:30 Gabapentin 300 Mg Capsule PO 10/01/21 22:14 600 mg BID LEONIE Administration Gabapentin 600 mg 09/02/21 22:00 Gabapentin 300 Mg Capsule PO 10/02/21 21:59 BID LEONIE Sodium Chloride 1,000 mls @ 999 mls/hr 09/01/21 11:22 09/01/21 12:49 Sodium Chloride 0.9% 1000 Ml IV 09/01/21 12:22 Infused .Q1H1M STA Infusion Sodium Chloride Confirm 09/01/21 11:30 Sodium Chloride 0.9% 1000 Ml Administered 09/01/21 11:31 Dose 1,000 mls @ ud .ROUTE .STK-MED ONE Sodium Chloride 1,000 mls @ 999 mls/hr 09/01/21 14:41 09/01/21 16:06 Sodium Chloride 0.9% 1000 Ml IV 09/01/21 15:41 Infused .Q1H1M STA Infusion Sodium Chloride Confirm 09/01/21 14:48 Sodium Chloride 0.9% 1000 Ml Administered 09/01/21 14:49 Dose 1,000 mls @ ud .ROUTE .STK-MED ONE Sodium Chloride 1,000 mls @ 150 mls/hr 09/01/21 20:38 09/02/21 04:55 Sodium Chloride 0.9% 1000 Ml IV 10/01/21 20:37 150 mls/hr .Q6H40M LEONIE Administration Ibuprofen 600 mg 09/02/21 10:22 Ibuprofen 600 Mg Tablet PO 10/02/21 10:21 Q6HPRN PRN PAIN Insulin Glargine 20 unit 09/02/21 11:00 09/02/21 11:11 Insulin Glargine 1 Unit SQ 10/02/21 10:59 Not Given BID LEONIE Insulin Human Lispro Confirm 09/01/21 22:24 Insulin Lispro 1 Unit Administered 09/01/21 22:25 Dose 5 unit .ROUTE .STK-MED ONE Insulin Human Lispro 0 unit 09/01/21 22:31 09/02/21 12:07 Insulin Lispro 1 Unit SQ 10/01/21 22:30 1 unit UD PRN Administration HYPERGLYCEMIA Insulin Human Regular 10 unit 09/01/21 12:53 09/01/21 12:57 Insulin Regular, Human 1 Unit IV 09/01/21 12:54 10 unit STAT ONE Administration Insulin Human Regular Confirm 09/01/21 12:57 Insulin Regular, Human 1 Unit Administered 09/01/21 12:58 Dose 10 unit .ROUTE .STK-MED ONE Insulin Human Regular 0 unit 09/01/21 20:38 Insulin Regular, Human 1 Unit SQ 10/01/21 20:37 UD PRN HYPERGLYCEMIA Insulin Human Regular 20 unit 09/02/21 10:33 Insulin Regular, Human 1 Unit SQ 10/02/21 10:32 DAILY PRN PRN HYPERGLYCEMIA Magnesium Citrate 296 ml 09/01/21 12:51 09/01/21 12:58 Magnesium Citrate 296 Ml Solution PO 09/01/21 12:52 296 ml STAT ONE Administration Magnesium Citrate Confirm 09/01/21 12:55 Magnesium Citrate 296 Ml Solution Administered 09/01/21 12:56 Dose 296 ml .ROUTE .STK-MED ONE Morphine Sulfate 4 mg 09/01/21 11:22 09/01/21 11:38 Morphine Sulfate 4 Mg/Ml Injection IV 09/01/21 11:23 4 mg STAT ONE Administration Morphine Sulfate Confirm 09/01/21 11:29 Morphine Sulfate 4 Mg/Ml Injection Administered 09/01/21 11:30 Dose 4 mg .ROUTE .STK-MED ONE Morphine Sulfate 4 mg 09/01/21 20:38 09/01/21 21:21 Morphine Sulfate 4 Mg/Ml Injection IV 09/06/21 20:37 4 mg Q3H/PRN PRN Administration PAIN Ondansetron HCl 4 mg 09/01/21 11:22 09/01/21 11:33 Ondansetron Hcl 4 Mg/2 Ml Vial IV 09/01/21 11:23 4 mg STAT ONE Administration Ondansetron HCl Confirm 09/01/21 11:29 Ondansetron Hcl 4 Mg/2 Ml Vial Administered 09/01/21 11:30 Dose 4 mg .ROUTE .STK-MED ONE Ondansetron HCl 4 mg 09/01/21 20:38 09/01/21 21:20 Ondansetron Hcl 4 Mg/2 Ml Vial IV 10/01/21 20:37 4 mg Q6H PRN PRN Administration NAUSEA/VOMITING Pantoprazole Sodium 40 mg 09/02/21 11:00 09/02/21 11:04 Protonix (Pantoprazole) 40 Mg Tablet PO 10/02/21 10:59 40 mg DAILY LEONIE Administration Fluticasone/Salmeterol 2 puff 09/02/21 07:00 09/02/21 07:08 Fluticasone/Salmeterol 230/21 Common Canister IH 10/02/21 06:59 2 puff BIDRT LEONIE Administration Fluticasone/Salmeterol each 09/02/21 10:22 Fluticasone/Salmeterol 500/50* 1 Each Inh IH 10/02/21 10:21 BID PRN PRN asthma Intake & Output (Last 24 hours) 08/31/21 09/01/21 09/02/21 09/03/21 11:59 11:59 11:59 11:59 Intake Total 1832 480 Output Total 1 Balance 1831 480 Weight 77.111 kg 75.8 kg Laboratory Results (Last 24 hours) 09/02/21 09/02/21 09/02/21 11:46 07:44 04:30 WBC RBC Hgb Hct MCV MCH MCHC RDW Plt Count MPV Gran % Eos # (Auto) Absolute Lymphs (auto) Absolute Monos (auto) Lymphocytes % Monocytes % Eosinophils % Basophils % Absolute Granulocytes Basophils # Sodium 135 L Potassium 3.3 L Chloride 101 Carbon Dioxide 29 Anion Gap 8.6 BUN 21 H Creatinine 0.78 Estimated GFR > 60.0 Glucose 141 H POC Glucometer 196 H 176 H Lactic Acid Calcium 8.5 Total Bilirubin 0.80 AST 178 H ALT 74 H Alkaline Phosphatase 91 Serum Total Protein 6.1 L Albumin 3.6 Influenza Type A Ag Influenza Type B Ag RSV (PCR) SARS-CoV-2 (PCR) 09/02/21 09/02/21 09/01/21 04:30 04:30 22:19 WBC 7.6 RBC 4.53 Hgb 13.6 Hct 39.0 L MCV 86.1 MCH 30.0 MCHC 34.9 RDW 12.9 Plt Count 234 MPV 9.2 Gran % 54.9 Eos # (Auto) 0.10 Absolute Lymphs (auto) 2.73 Absolute Monos (auto) 0.58 Lymphocytes % 35.7 Monocytes % 7.6 Eosinophils % 1.3 Basophils % 0.5 Absolute Granulocytes 4.19 Basophils # 0.04 Sodium Potassium Chloride Carbon Dioxide Anion Gap BUN Creatinine Estimated GFR Glucose POC Glucometer 217 H Lactic Acid 0.9 Calcium Total Bilirubin AST ALT Alkaline Phosphatase Serum Total Protein Albumin Influenza Type A Ag Influenza Type B Ag RSV (PCR) SARS-CoV-2 (PCR) 09/01/21 18:37 WBC RBC Hgb Hct MCV MCH MCHC RDW Plt Count MPV Gran % Eos # (Auto) Absolute Lymphs (auto) Absolute Monos (auto) Lymphocytes % Monocytes % Eosinophils % Basophils % Absolute Granulocytes Basophils # Sodium Potassium Chloride Carbon Dioxide Anion Gap BUN Creatinine Estimated GFR Glucose POC Glucometer Lactic Acid Calcium Total Bilirubin AST ALT Alkaline Phosphatase Serum Total Protein Albumin Influenza Type A Ag NEGATIVE Influenza Type B Ag NEGATIVE RSV (PCR) NEGATIVE SARS-CoV-2 (PCR) NEGATIVE Orders (Last 24 hours) Category Date Time Status Bedrest with BRP/BSC ROUTINE Activity 09/01/21 20:38 Completed Up With Assistance ROUTINE Activity 09/01/21 20:38 Completed Code Status Order ROUTINE Care 09/01/21 20:38 Completed Fall Protocol Q1H Care 09/01/21 20:38 Completed IV Care Q6H Care 09/01/21 20:38 Completed POCT Glucose Check ACHS Care 09/01/21 20:[address] in Observation ROUTINE Care 09/01/21 20:38 Completed Loy Mcdowell, Apply ROUTINE Care 09/01/21 20:38 Completed Telemetry q6h Care 09/01/21 20:38 Completed Weight,Daily 0600 Care 09/01/21 20:38 Completed Consult Surgery ROUTINE Cons 09/01/21 20:38 Completed Infection Control Consult ROUTINE Cons 09/02/21 08:00 Completed Button Spindler/Discharge Plan ROUTINE Cons 09/02/21 08:00 Completed 1800 Calorie Carbohydrate Diet [Consistent Carbohydrate Diet 09/02/21 [facility] Completed Diet 1800 Calorie] Nutritional Admission Screen ONCE Diet 09/02/21 08:00 Completed Discharge Routine Discharge 09/02/21 Ordered ABDOMEN AND PELVIS W/0 CONTRAS [CT] Stat Exams 09/01/21 17:22 Completed CBC W DIFF AM.LAB Lab 09/02/21 04:30 Completed CMP AM.LAB Lab 09/02/21 04:30 Completed Lactic Acid AM.LAB Lab 09/02/21 04:30 Completed POCT GLUCOSE Stat Lab 09/01/21 22:19 Completed POCT GLUCOSE Stat Lab 09/02/21 07:44 Completed POCT GLUCOSE Stat Lab 09/02/21 11:46 Completed Acetaminophen 325 mg [Tylenol 325 mg] Med 09/01/21 20:38 Discontinued 650 mg PO Q4H PRN PRN Albuterol 2.5 mg/3 ml Neb [Proventil 2.5 mg/3 ml Neb Med 09/02/21 10:22 Discontinued ] 2.5 mg IH QID PRN PRN Albuterol 8 gm Mdi Hfa [Ventolin Hfa MDI] Med 09/02/21 10:22 Discontinued DOSE gm IH QIDPRN PRN Albuterol Common Canister [Ventolin Common Canister* Med 09/01/21 21:58 Discontinued ] 4 puff IH Q4H PRN PRN Amlodipine Besylate 5 mg [Norvasc 5 mg] Med 09/02/21 11:00 Discontinued 5 mg PO DAILY Amlodipine Besylate 5 mg [Norvasc 5 mg] Med 09/01/21 20:38 Discontinued 5 mg PO STAT ONE Diphenoxylate HCl/Atropine [Lomotil] Med 09/02/21 11:00 Discontinued 3 tablet PO DAILY Famotidine 20 mg [Pepcid 20 MG] Med 09/02/21 11:00 Discontinued 40 mg PO DAILY Fluticasone/Salmeterol 230/21 [Advair Hfa 230/21 Mcg Med 09/02/21 07:00 Discontinued COMMON CANISTER*] 2 puff IH BIDRT Fluticasone/Salmeterol 500/50* [Advair 500-50 Diskus Med 09/02/21 10:22 Discontinued ] DOSE each IH BID PRN PRN Gabapentin 300 mg [Neurontin 300 mg] Med 09/01/21 22:15 Discontinued 600 mg PO BID Gabapentin 300 mg [Neurontin 300 mg] Med 09/02/21 22:00 Discontinued 600 mg PO BID Hydrocodone/APAP 5/325 [[place] 5/325 mg] Med 09/02/21 10:22 Discontinued 1 tab PO Q4HPRN PRN Ibuprofen 600 mg [Motrin 600 mg] Med 09/02/21 10:22 Discontinued 600 mg PO Q6HPRN PRN Insulin Glargine [Lantus Insulin] Med 09/02/21 11:00 Discontinued 20 unit SQ BID Insulin Lispro [Humalog] Med 09/01/21 22:24 Discontinued 5 unit .ROUTE .STK-MED ONE Insulin Lispro [Humalog] Med 09/01/21 22:31 Discontinued See Dose Instructions SQ UD PRN Insulin Regular, Human [Humulin R] Med 09/02/21 10:33 Discontinued 20 unit SQ DAILY PRN PRN Insulin Regular, Human [Humulin R] Med 09/01/21 20:38 Discontinued See Dose Instructions SQ UD PRN Morphine Sulfate 4 mg Inj Med 09/01/21 20:38 Discontinued 4 mg IV Q3H/PRN PRN NaCl 0.9% 1000 ml [Sodium Chloride 0.9% 1000 ML] 1,000 Med 09/01/21 20:38 Discontinued ml IV 150 mls/hr Ondansetron HCl 4 mg/2 ml [Zofran 4 MG/2 ML VIAL] Med 09/01/21 20:38 Discontinued 4 mg IV Q6H PRN PRN PANTOPRAZOLE 40 mg Tablet [Protonix 40MG Tablet] Med 09/02/21 11:00 Discontinued 40 mg PO DAILY Pulse Oximetry CONTINUOUS RT 09/01/21 20:38 Completed Respiratory Therapy Assessment DAILY RT 09/01/21 21:56 Completed Respiratory Therapy Consult ROUTINE RT 09/01/21 20:38 Completed Patient Care Notes (Last 24 hours) 09/02/21 09:50 Nursing Note by Maria Luisa Koenig CALLED [facility] ABOUT REFERRAL. SPOKE TO ANTONI WILL WAIT FOR FOLLOW UP JEANINE [id number] JEANINE Initialized on 09/02/21 09:50 - END OF NOTE 09/01/21 22:32 Nursing Note by Asmita Will Called Dr. Zuñiga, ER physician to clarify insulin sliding scale. He stated it could be changed to Humalog. Initialized on 09/01/21 22:32 - END OF NOTE 09/01/21 22:00 (created 09/02/21 07:26) Nursing Note by Amelia Haley Dr. was contacted by this RN for orders to restart patients home medications. Gabapentin 600mg PO BID was restarted at this time. Initialized on 09/02/21 07:26 - END OF NOTE Code(s): R10.9 - UNSPECIFIED ABDOMINAL PAIN (2) Adynamic ileus Status: Acute Code(s): K56.0 - PARALYTIC ILEUS (3) Hx of diabetes mellitus Status: Acute Code(s): Z86.39 - PERSONAL HISTORY OF ENDO, NUTRITIONAL AND METABOLIC DISEASE Hospital Summary - Hospital Course Hospital Course: Last Vital Signs Temp 98.0 F 09/02/21 12:00 Pulse 65 09/02/21 12:00 Resp 18 09/02/21 12:00 BP 162/93 09/02/21 12:00 Pulse Ox 98 09/02/21 12:00 Allergies lisinopril Allergy (Mild, Verified 02/17/21 22:06) Anaphylactic Reaction naproxen Adverse Reaction (Mild, Verified 02/17/21 22:06) Rash Intake & Output 09/02/21 09/03/21 11:59 11:59 Intake Total 1832 480 Output Total 1 Balance 1831 480 Weight 75.8 kg Orders 09/02/21 Discharge Routine Lab Tests 09/01/21 09/01/21 09/02/21 18:37 22:19 04:30 WBC 7.6 RBC 4.53 Hgb 13.6 Hct 39.0 L MCV 86.1 MCH 30.0 MCHC 34.9 RDW 12.9 Plt Count 234 MPV 9.2 Gran % 54.9 Eos # (Auto) 0.10 Absolute Lymphs (auto) 2.73 Absolute Monos (auto) 0.58 Lymphocytes % 35.7 Monocytes % 7.6 Eosinophils % 1.3 Basophils % 0.5 Absolute Granulocytes 4.19 Basophils # 0.04 Sodium Potassium Chloride Carbon Dioxide Anion Gap BUN Creatinine Estimated GFR Glucose POC Glucometer 217 H Lactic Acid Calcium Total Bilirubin AST ALT Alkaline Phosphatase Serum Total Protein Albumin Influenza Type A Ag NEGATIVE Influenza Type B Ag NEGATIVE RSV (PCR) NEGATIVE SARS-CoV-2 (PCR) NEGATIVE 09/02/21 09/02/21 09/02/21 04:30 04:30 07:44 WBC RBC Hgb Hct MCV MCH MCHC RDW Plt Count MPV Gran % Eos # (Auto) Absolute Lymphs (auto) Absolute Monos (auto) Lymphocytes % Monocytes % Eosinophils % Basophils % Absolute Granulocytes Basophils # Sodium 135 L Potassium 3.3 L Chloride 101 Carbon Dioxide 29 Anion Gap 8.6 BUN 21 H Creatinine 0.78 Estimated GFR > 60.0 Glucose 141 H POC Glucometer 176 H Lactic Acid 0.9 Calcium 8.5 Total Bilirubin 0.80 AST 178 H ALT 74 H Alkaline Phosphatase 91 Serum Total Protein 6.1 L Albumin 3.6 Influenza Type A Ag Influenza Type B Ag RSV (PCR) SARS-CoV-2 (PCR) 09/02/21 11:46 WBC RBC Hgb Hct MCV MCH MCHC RDW Plt Count MPV Gran % Eos # (Auto) Absolute Lymphs (auto) Absolute Monos (auto) Lymphocytes % Monocytes % Eosinophils % Basophils % Absolute Granulocytes Basophils # Sodium Potassium Chloride Carbon Dioxide Anion Gap BUN Creatinine Estimated GFR Glucose POC Glucometer 196 H Lactic Acid Calcium Total Bilirubin AST ALT Alkaline Phosphatase Serum Total Protein Albumin Influenza Type A Ag Influenza Type B Ag RSV (PCR) SARS-CoV-2 (PCR) - Vitals & Intake/Output Vital Signs: Vital Signs Temperature 98.0 F 09/02/21 12:00 Pulse Rate 65 09/02/21 12:00 Respiratory Rate 18 09/02/21 12:00 Blood Pressure 162/93 09/02/21 12:00 O2 Sat by Pulse Oximetry 98 09/02/21 12:00 Intake & Output: Intake & Output 08/31/21 09/01/21 09/02/21 09/03/21 11:59 11:59 11:59 11:59 Intake Total 1832 480 Output Total 1 Balance 1831 480 Weight 77.111 kg 75.8 kg - Lab Result Diagrams: 09/02/21 04:30 09/02/21 04:30 Lab Results-Last 24 Hrs: Lab Results-Last 24 Hours 09/01/21 09/01/21 09/02/21 Range/Units 18:37 22:19 04:30 WBC 7.6 (4.0-10.5) K/mm3 RBC 4.53 (4.1-5.6) M/mm3 Hgb 13.6 (12.5-18.0) gm/dl Hct 39.0 L (42-50) % MCV 86.1 (78-100) fl MCH 30.0 (26-32) pg MCHC 34.9 (32-36) g/dl RDW 12.9 (11.5-14.0) % Plt Count 234 (150-450) K/mm3 MPV 9.2 (7.5-11.0) fl Gran % 54.9 (36.0-66.0) % Eos # (Auto) 0.10 (0-0.5) Absolute Lymphs (auto) 2.73 (1.0-4.6) Absolute Monos (auto) 0.58 (0.0-1.3) Lymphocytes % 35.7 (24.0-44.0) % Monocytes % 7.6 (0.0-12.0) % Eosinophils % 1.3 (0.00-5.0) % Basophils % 0.5 (0.0-0.4) % Absolute Granulocytes 4.19 (1.4-6.9) Basophils # 0.04 (0-0.4) Sodium (137-145) mmol/L Potassium (3.5-5.1) mmol/L Chloride (98-107) mmol/L Carbon Dioxide (22-30) mmol/L Anion Gap (5-15) MEQ/L BUN (9-20) mg/dL Creatinine (0.66-1.25) mg/dL Estimated GFR ML/MIN Glucose (74-106) mg/dL POC Glucometer 217 H (74 to 106) mg/dL Lactic Acid (0.4-2.0) Calcium (8.4-10.2) mg/dL Total Bilirubin (0.2-1.3) mg/dL AST (17-59) U/L ALT (0-50) U/L Alkaline Phosphatase (38-126) U/L Serum Total Protein (6.3-8.2) g/dL Albumin (3.5-5.0) g/dL Influenza Type A Ag NEGATIVE (NEGATIVE) Influenza Type B Ag NEGATIVE (NEGATIVE) RSV (PCR) NEGATIVE (Negative) SARS-CoV-2 (PCR) NEGATIVE (NEGATIVE) 09/02/21 09/02/21 09/02/21 Range/Units 04:30 04:30 07:44 WBC (4.0-10.5) K/mm3 RBC (4.1-5.6) M/mm3 Hgb (12.5-18.0) gm/dl Hct (42-50) % MCV (78-100) fl MCH (26-32) pg MCHC (32-36) g/dl RDW (11.5-14.0) % Plt Count (150-450) K/mm3 MPV (7.5-11.0) fl Gran % (36.0-66.0) % Eos # (Auto) (0-0.5) Absolute Lymphs (auto) (1.0-4.6) Absolute Monos (auto) (0.0-1.3) Lymphocytes % (24.0-44.0) % Monocytes % (0.0-12.0) % Eosinophils % (0.00-5.0) % Basophils % (0.0-0.4) % Absolute Granulocytes (1.4-6.9) Basophils # (0-0.4) Sodium 135 L (137-145) mmol/L Potassium 3.3 L (3.5-5.1) mmol/L Chloride 101 (98-107) mmol/L Carbon Dioxide 29 (22-30) mmol/L Anion Gap 8.6 (5-15) MEQ/L BUN 21 H (9-20) mg/dL Creatinine 0.78 (0.66-1.25) mg/dL Estimated GFR > 60.0 ML/MIN Glucose 141 H (74-106) mg/dL POC Glucometer 176 H (74 to 106) mg/dL Lactic Acid 0.9 (0.4-2.0) Calcium 8.5 (8.4-10.2) mg/dL Total Bilirubin 0.80 (0.2-1.3) mg/dL AST 178 H (17-59) U/L ALT 74 H (0-50) U/L Alkaline Phosphatase 91 (38-126) U/L Serum Total Protein 6.1 L (6.3-8.2) g/dL Albumin 3.6 (3.5-5.0) g/dL Influenza Type A Ag (NEGATIVE) Influenza Type B Ag (NEGATIVE) RSV (PCR) (Negative) SARS-CoV-2 (PCR) (NEGATIVE) 09/02/21 Range/Units 11:46 WBC (4.0-10.5) K/mm3 RBC (4.1-5.6) M/mm3 Hgb (12.5-18.0) gm/dl Hct (42-50) % MCV (78-100) fl MCH (26-32) pg MCHC (32-36) g/dl RDW (11.5-14.0) % Plt Count (150-450) K/mm3 MPV (7.5-11.0) fl Gran % (36.0-66.0) % Eos # (Auto) (0-0.5) Absolute Lymphs (auto) (1.0-4.6) Absolute Monos (auto) (0.0-1.3) Lymphocytes % (24.0-44.0) % Monocytes % (0.0-12.0) % Eosinophils % (0.00-5.0) % Basophils % (0.0-0.4) % Absolute Granulocytes (1.4-6.9) Basophils # (0-0.4) Sodium (137-145) mmol/L Potassium (3.5-5.1) mmol/L Chloride (98-107) mmol/L Carbon Dioxide (22-30) mmol/L Anion Gap (5-15) MEQ/L BUN (9-20) mg/dL Creatinine (0.66-1.25) mg/dL Estimated GFR ML/MIN Glucose (74-106) mg/dL POC Glucometer 196 H (74 to 106) mg/dL Lactic Acid (0.4-2.0) Calcium (8.4-10.2) mg/dL Total Bilirubin (0.2-1.3) mg/dL AST (17-59) U/L ALT (0-50) U/L Alkaline Phosphatase (38-126) U/L Serum Total Protein (6.3-8.2) g/dL Albumin (3.5-5.0) g/dL Influenza Type A Ag (NEGATIVE) Influenza Type B Ag (NEGATIVE) RSV (PCR) (Negative) SARS-CoV-2 (PCR) (NEGATIVE) Micro Results-Entire Visit: Accuchecks Date 09/02/21 Date 09/02/21 Time 11:46 Time 07:45 - Radiology Exams Ordered Rad Exams-Entire Visit: Radiology Procedures Category Date Time Status ABDOMEN AND PELVIS W/0 CONTRAS [CT] Stat Exams 09/01/21 17:22 Completed OBSTR/ACUTE ABDOMEN SERIES Stat Exams 09/01/21 16:16 Completed - Procedures and Test Procedures and Tests throughout Hospitalization: Therapy Orders & Screens 09/01/21 20:38 Respiratory Therapy Consult ROUTINE Comment: Reason For Exam: 09/01/21 21:56 Respiratory Therapy Assessment DAILY Comment: - Discharge Discharge Date: 09/02/21 Disposition: Home, Self-Care Condition: Stable Prescriptions: Continue Fluticasone/Salmeterol 500/50* [Advair 500-50 Diskus] 1 puff IH BID PRN PRN PRN Reason: asthma Albuterol Sulfate [Proair Hfa] 2 puffs IH QIDPRN PRN PRN Reason: sob Albuterol 2.5 mg/3 ml Neb [Proventil 2.5 mg/3 ml Neb] 3 ml IH QID PRN PRN PRN Reason: sob Omeprazole 40 mg PO DAILY Famotidine [Pepcid] 40 mg PO DAILY Fluticasone/Umeclidin/Vilanter [Trelegy Ellipta 100-62.5-25] 1 puff IH DAILY PRN PRN PRN Reason: Shortness Of Breath Amlodipine Besylate 5 mg [Norvasc 5 mg] 5 mg PO DAILY Insulin Glargine,Hum.rec.anlog [Basaglar Kwikpen U-100] 20 unit SQ BID Insulin Regular, Human [Novolin R Flexpen] 20 units SQ DAILY PRN PRN PRN Reason: Hyperglycemia Ibuprofen 600 mg PO Q6HPRN PRN 10 Days #20 tablet PRN Reason: Pain Gabapentin 300 mg [Neurontin 300 mg] 600 mg PO BID Discontinued Diphenoxylate HCl/Atropine [Lomotil] 3 udtab PO DAILY No Action Hydrocodone/Acetaminophen [Hydrocodone-Acetamin 5-325 mg] 1 tab PO Q4HPRN PRN MDD 6 PRN Reason: Pain Instructions: Intestinal Pseudo-obstruction (DC), Diabetic Meal Planning Follow up with: BLANCA RIVERS [ACTIVE STAFF] - 09/23/22 8:20 am HARRISON VENTURA MD [Primary Care Provider] - 09/09/21 11:00 am Forms: Discharge Instructions, Work/School Release Form
[2021-09-02] MEDS ORDERED: NEURONTIN 300 MG PO SCH (22:00)
[2021-09-03] MEDS ORDERED: NON-FORMULARY ITEM (Famotidine [Pepcid] 40 MG Tablet) PO SCH (10:00)
[2021-09-03] MEDS ORDERED: NON-FORMULARY ITEM (Omeprazole [Omeprazole] 40 MG Capsule.Dr) PO SCH (10:00)
== END 2021-09-02 13:18 | disposition home or self-care (01) ==
LOC: ED 10:22 → MED SURG 20:37
PROVIDERS: ADMIT Family Medicine; ATTEND General Practice
DX: R10.31 Right lower quadrant pain (principal); K56.0 Paralytic ileus; E11.9 Type 2 diabetes mellitus without complications; Z86.39 Personal history of other endocrine, nutritional and metabolic disease; Z20.828 Contact with and (suspected) exposure to other viral communicable diseases; Z79.899 Other long term (current) drug therapy
CPT/HCPCS: 0241U; 36000; 36415; 74022; 74176; 80053; 81001; 82150; 82947; 83605; 83690; 84484; 85025; 93005; 93268; 94640; 94760; 94762; 96360; 96361; 96374; 96375; 99285; G0378; J1200; J1815; J1817; J2270; J2405; A9270-GY

== ENCOUNTER 2021-10-21 08:27 | Day surgery (SDC) | payer BC ==
--- NOTE | 2021-10-21 08:46 | HP ---
DATE OF SURGERY: 10/21/2021 HISTORY OF PRESENT ILLNESS: The patient is a 55-year-old had emergency room visit twice. He had some pain on the right side of his abdomen and a burning sensation. He had some loose stools, had some change in bowel habits. No bloody stools. Family history negative for colon cancer, negative for ulcerative colitis. Last colonoscopy ten years ago. He had some abdominal pain, change in bowel habits. He is in need of upper and lower endoscopy for evaluate for colitis, neoplasia, peptic ulcer disease, inflammatory bowel disease, celiac disease or other etiology. PAST MEDICAL HISTORY: He had some lung cancer follow up with Dr. Fernandes. Arthritis, diabetes, hypertension, chronic obstructive pulmonary disease, lung cancer. He had some [place] Syndrome from [facility]. PAST SURGICAL HISTORY: Cholecystectomy. Lung removed in the past. MEDICATIONS: Include albuterol, amlodipine, cyclobenzaprine, Diphenoxylate/atropine, omeprazole, famotidine, fluticasone, gabapentin, hydrocodone, ibuprofen, loperamide, Sildenafil. ALLERGIES: LISINOPRIL. NAPROXEN. FAMILY HISTORY: Cancer but negative for colon cancer or ulcerative colitis. SOCIAL HISTORY: No smoking or alcohol abuse. REVIEW OF SYSTEMS: Fourteen systems reviewed. No chest pain or palpitations. Other systems negative or noncontributory as above and per preadmission questionnaire. PHYSICAL EXAMINATION: GENERAL: No acute distress. HEENT: Sclerae nonicteric. NECK: No JVD. CHEST: Equal excursion, nonlabored breathing. CVS: Regular rate and rhythm. ABDOMEN: Soft. No peritoneal signs. EXTREMITIES: No significant edema. NEURO: Alert, oriented, moving extremities symmetrically. No gross motor deficits noted. RECTAL: Deferred timed to endoscopy exam. PSYCH: Appropriate mood and affect. IMPRESSION: Abdominal pain, change in bowel habits, history of carcinoma in the past. He is in need of upper and lower endoscopy to evaluate for colitis, neoplasia, peptic ulcer disease, inflammatory bowel disease, celiac disease, GI carcinoid or other issues. Risks and benefits explained in detail including but not limited to bleeding or infection, risk of bowel injury or perforation, risk of missed or nondiagnosis or incomplete exam possibly requiring barium enema, barium swallow, other studies or procedures. General risk of anesthesia or sedation, risk of bowel prep but not limited to, consent obtained. Will proceed with EGD and colonoscopy as an outpatient.
[2021-10-21] MEDS ORDERED: Lactated Ringers 1,000 ML IV SCH (09:00)
[2021-10-21 09:03] VITALS: O2SAT 98
[2021-10-21] MEDS ORDERED: Lactated Ringers 1,000 ML IV ONE (09:05)
[2021-10-21] MEDS ORDERED: DIPRIVAN 200 MG/20 ML IV ONE ×2 (10:31→10:32)
[2021-10-21] MEDS ORDERED: Xylocaine-Mpf 2% 5 Ml Vial ONE (10:31)
[2021-10-21] MEDS ORDERED: Versed 2 MG/2 ML Injection ONE (10:32)
[2021-10-21 11:50] VITALS: BP 156/94; PULSE 70
--- NOTE | 2021-10-21 13:49 | OP ---
SURGERY DATE/TIME: 10/21/2021 1037 PREOPERATIVE DIAGNOSES: History of change in bowel habits, history of some vague right side abdominal pain, history of carcinoid in the past, need for upper and lower endoscopy for further evaluation. POSTOPERATIVE DIAGNOSES: 1) Erosive gastritis in the antrum. 2) Mild diverticulosis. 3) Small early polyp versus hyperplastic lesion cecum and ascending colon. 4) Fair bowel prep. 5) Normal appearing terminal ileum. PROCEDURES: 1) EGD with cold biopsy of the antrum to evaluate for Helicobacter pylori. 2) Cold biopsy distal esophagus to evaluate for possible short segment of Lepe's distal esophagus. 3) Colonoscopy to terminal ileum. 4) Retrograde ileoscopy. 5) Random cold biopsy of ileum to evaluate for microscopic ileitis. 6) Random cold biopsy of colon to evaluate for microscopic colitis. 7) Hot biopsy removal of small vague early polyp versus hyperplastic lesion of cecum. 8) Hot biopsy polypectomy small early polyp versus hyperplastic lesion proximal ascending colon x2. 9) ASA Class II. SURGEON: Dr. Isaac Ramos. ANESTHESIA: MAC. ESTIMATED BLOOD LOSS: Minimal. INDICATIONS: As noted above. Risks and benefits explained in detail and not limited to and consent obtained. DESCRIPTION OF PROCEDURE AND FINDINGS: The patient is taken to the operating room. MAC anesthesia introduced. After official time out and no disagreement with planned procedure, bite block positioned. Video gastroscope easily passed down the esophagus to the third portion of the duodenum. Third, second and first portion of the duodenum grossly unremarkable. Given his right side symptom complaints, cold biopsy taken to evaluate for celiac sprue or other etiology in this normal appearing small bowel. Scope pulled back in the stomach. He did have an area of some erosive gastritis in the antrum. Cold biopsy taken to evaluate for Helicobacter pylori. There is no evidence of any vague ulcer. On retroflex, the gastroesophageal junction is snug against the scope. The scope straightened. Gastroesophageal junction about 40 cm. There was one little fingerlette of salmon-pink mucosa extending up. Cold biopsy taken to evaluate for Lepe's esophagus. Otherwise, there are no signs of any obvious masses or nodules on withdrawal of the scope. The patient tolerated the procedure well. Attention was then turned to colonoscopy. Digital rectal exam did not reveal any rectal masses. Video colonoscope inserted and passed up through the slightly tortuous sigmoid, descending, transverse, ascending colon around to the cecum. Up in the terminal ileum, the terminal ileum grossly unremarkable. Given his right side complaints, some random cold biopsies taken in the ileum to evaluate for microscopic colitis. Some random cold biopsies taken in the right colon to evaluate for microscopic colitis. The prep overall was fair, a little bit of liquidy semi-solid stool and a few solid stool balls just slightly limiting the exam for small lesions. There was a very small, vague early polyp versus hyperplastic lesion of the cecum removed with hot biopsy forceps with brief bursts of cautery. Good hemostasis noted. Two small, early polyps removed in the proximal ascending colon. Early polyps versus hyperplastic lesions proximal ascending colon removed with hot biopsy forceps with brief bursts of cautery. Good hemostasis noted. Otherwise some random cold biopsies taken in the right colon to evaluate for microscopic colitis. Otherwise, he had a few scattered diverticula throughout mostly the left colon. There were no signs of any large polyps, masses or obstructing lesions. The patient tolerated the procedure well. There were no immediate complications. Question whether the burning pain on the right could be some sort of musculoskeletal back issue or referred pain. There is no gross macroscopic sources identified with the scope. Findings discussed with the family out in the waiting area.
== END 2021-10-21 11:55 | disposition home or self-care (01) ==
LOC: SDC 08:27
PROVIDERS: ATTEND Surgery
DX: K29.70 Gastritis, unspecified, without bleeding (principal); K57.30 Diverticulosis of large intestine without perforation or abscess without bleeding; D12.2 Benign neoplasm of ascending colon; D12.0 Benign neoplasm of cecum; R19.4 Change in bowel habit; R10.9 Unspecified abdominal pain; E11.9 Type 2 diabetes mellitus without complications; Z85.118 Personal history of other malignant neoplasm of bronchus and lung
CPT/HCPCS: 82947; J2250; J2704

== ENCOUNTER 2021-12-26 20:39 | Emergency (ER) | payer BC ==
[2021-12-26 21:36] LABS: Absolute Neutrophil Ct (ANC) 5.55 x10^3/uL (1.4-6.9); Basophil (Absolute #) 0.04 x10^3/uL (0-0.4); Eosinophil % 1.1 % (0.00-5.0); Eosinophil (Absolute #) 0.09 x10^3/uL (0-0.5); Hematocrit 40.7 % (42-50); Hemoglobin 14.1 g/dL (12.5-18.0); Lymphocyte (Absolute #) 1.84 x10^3/uL (1.0-4.6); Lymphocytes % 22.5 % (24.0-44.0); Mean Cell Volume 90.4 fL (78-100); Mean Corpuscular Hemoglobin 31.3 pg (26-32); Mean Corpuscular Hgb Concent. 34.6 g/dL (32-36); Mean Platelet Volume 10.1 fL (7.5-11.0); Monocyte (Absolute #) 0.64 x10^3/uL (0.0-1.3); Monocytes % 7.8 % (0.0-12.0); Neutrophil % 67.9 % (36.0-66.0); Platelet Count 263 x10^3/uL (150-450); Red Cell Distribution Width 12.4 % (11.5-14.0); White Blood Count 8.2 x10^3/uL (4.0-10.5)
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
[2021-12-26 21:51] LABS: ALBUMIN 4.4 g/dL (3.5-5.0); ALKALINE PHOSPHATASE 123 U/L (38-126); ANION GAP 18.2 MEQ/L (5-15); BLOOD UREA NITROGEN 16 mg/dL (9-20); CHLORIDE 93 mmol/L (98-107); Calcium 10.1 mg/dL (8.4-10.2); Carbon Dioxide 26 mmol/L (22-30); Creatinine 1 0.81 mg/dL (0.66-1.25); EST GLOMERULAR FILTRATION RATE > 60.0 ML/MIN; Potassium 4.5 mmol/L (3.5-5.1); SGOT/AST 27 U/L (17-59); SGPT/ALT 24 U/L (0-50); SODIUM 133 mmol/L (137-145); Total Protein 6.8 g/dL (6.3-8.2)
[2021-12-26 22:20] LABS: Glucose 720 mg/dL (74-106)
[2021-12-26] MEDS ORDERED: Sodium Chloride 0.9% 1000 ML 1,000 ML IV STA ×2 (22:20→23:59)
[2021-12-26] MEDS ORDERED: Sodium Chloride 0.9% 1000 ML 1,000 ML ONE ×2 (22:21→23:58)
[2021-12-26] MEDS ORDERED: Zofran 4 MG/2 ML VIAL IV ONE (22:34)
[2021-12-26] MEDS ORDERED: Zofran 4 MG/2 ML VIAL ONE (22:35)
[2021-12-26] MEDS ORDERED: HUMULIN R ONE (23:06)
[2021-12-26] MEDS ORDERED: HUMULIN R SQ ONE (23:07)
[2021-12-26] MEDS ORDERED: DUONEB 0.5-3 MG/3 ml Neb IH ONE (23:59)
[2021-12-27] MEDS ORDERED: DUONEB 0.5-3 MG/3 ml Neb IH ONE (00:10)
[2021-12-27 01:40] LABS: ALBUMIN 4.2 g/dL (3.5-5.0); ALKALINE PHOSPHATASE 112 U/L (38-126); ANION GAP 12.5 MEQ/L (5-15); BLOOD UREA NITROGEN 16 mg/dL (9-20); CHLORIDE 99 mmol/L (98-107); Carbon Dioxide 29 mmol/L (22-30); Creatinine 1 0.73 mg/dL (0.66-1.25); EST GLOMERULAR FILTRATION RATE > 60.0 ML/MIN; Glucose 337 mg/dL (74-106); SGOT/AST 25 U/L (17-59); SGPT/ALT 23 U/L (0-50); SODIUM 137 mmol/L (137-145)
[2021-12-27 01:44] LABS: Potassium 3.4 mmol/L (3.5-5.1)
[2021-12-27 02:16] VITALS: BP 132/75; PULSE 78
[2021-12-27 02:17] VITALS: O2SAT 97
[2021-12-27] MEDS ORDERED: Klor Con PO ONE ×2 (02:24→02:25)
--- NOTE | 2021-12-27 09:03 | XRAY ---
Indication: Chest pressure and cough. Pulmonary embolus. History right lung cancer, COPD, and asthma. Multiple contiguous images obtained through the chest using 100 cc Isovue 370 contrast and PE protocol. Comparison: November 28, 2020. Good opacification of the pulmonary arteries to include the lobar and segmental branches. No pulmonary embolus. Heart not enlarged. Aorta is minimally arteriosclerotic without aneurysm/dissection. No pathologic mediastinal/hilar lymphadenopathy. Stable subcentimeter left thyroid hypodense nodule/cyst. Lungs demonstrate stable right midlung pleural parenchymal fibrosis/scarring and suture material. Again incidental small right midlung peripheral calcified granuloma. No new pulmonary mass/nodule, infiltrate, or effusion. Bony thorax intact again with mild degenerative changes throughout the spine. Limited upper abdomen demonstrates moderately distended stomach with food/fluid and cholecystectomy clips. Impression: 1. Negative pulmonary embolus. No new/acute cardiopulmonary abnormalities. 2. Stable right lung postsurgical changes, small left thyroid hypodense nodule/cyst, chronic bony findings, and old granulomatous disease. Comment: Preliminary interpretation made by [facility]. No critical discrepancy.
== END 2021-12-27 02:32 | disposition home or self-care (01) ==
LOC: ED 20:39
DX: R06.02 Shortness of breath (principal); E04.1 Nontoxic single thyroid nodule; J84.10 Pulmonary fibrosis, unspecified; I11.9 Hypertensive heart disease without heart failure; I25.10 Atherosclerotic heart disease of native coronary artery without angina pectoris; R05.1 Acute cough; J44.9 Chronic obstructive pulmonary disease, unspecified; E11.9 Type 2 diabetes mellitus without complications; Z86.16 Personal history of COVID-19; Z79.4 Long term (current) use of insulin; Z79.899 Other long term (current) drug therapy
CPT/HCPCS: 36000; 36415; 71260; 80053; 82947; 84484; 85025; 87040; 94640; 96360; 96372; 96374; 99284; J1815; J2405; A9270-GY

== ENCOUNTER 2022-03-29 21:27 | Observation (INO) | payer BC ==
[2022-03-29] MEDS ORDERED: Sodium Chloride 0.9% 1000 ML 1,000 ML IV STA ×2 (21:36→22:42)
[2022-03-29] MEDS ORDERED: Zofran 4 MG/2 ML VIAL IV ONE (21:36)
[2022-03-29] MEDS ORDERED: PROTONIX 40 MG IV IV ONE ×2 (21:36→21:41)
[2022-03-29] MEDS ORDERED: Sodium Chloride 0.9% 1000 ML 1,000 ML ONE ×2 (21:41→22:43)
[2022-03-29] MEDS ORDERED: Zofran 4 MG/2 ML VIAL ONE (21:41)
--- NOTE | 2022-03-29 22:19 | ERPHSYRPT ---
- History of Present Illness Time Seen by Provider: 03/29/22 21:28 Historian: patient Exam Limitations: no limitations Patient Subjective Stated Complaint: pt states "I took a home test last night and it was positive. I have been vomiting and diarrhea for the past 2 days. I can't keep anything down." Triage Nursing Assessment: pt came into the er via ambulance; pt is axo x4; c/o N/V/D; pt denies pain; hyperactive bowel sounds in all quads; abd is soft and round; non tender with palpation; tachycardic; hypertensive Physician History: 56 years old male with a history of diabetes mellitus presented in the ER with chief complaint of abdominal pain with nausea vomiting and diarrhea off and on for the last 6 days. Patient is tested positive for COVID-19. Patient reports having multiple episodes of nonprojectile, nonbilious vomiting which are getting worse for the last couple of days. He is not able to hold anything down. Abdominal pain is dull aching to cramping mild to moderate which is more with vomiting. He had diarrhea initially which is improved now and last episode of loose stool was yesterday. Having generalized weakness fatigue and tiredness. Denies any fever or chills. Timing/Duration: day(s) (6), gradual onset, worse Activities at Onset: rest Quality: aching, cramping Abdominal Pain Onset Location: generalized abdomen Pain Radiation: no radiation Severity of Pain-Max: moderate Severity of Pain-Current: mild Modifying Factors: Worsens With: movement, palpation, vomiting Associated Symptoms: diarrhea, fatigue, nausea, vomiting, No shortness of breath Previous symptoms: no prior history Allergies/Adverse Reactions: lisinopril Allergy (Mild, Verified 12/26/21 20:41) Anaphylactic Reaction naproxen Adverse Reaction (Mild, Verified 12/26/21 20:41) Rash Home Medications: Albuterol 2.5 mg/3 ml Neb [Proventil 2.5 mg/3 ml Neb] 3 ml IH QID PRN PRN 10/15/16 [History] Albuterol Sulfate [Proair Hfa] 2 puffs IH QIDPRN PRN 10/15/16 [History] Amlodipine Besylate 5 mg [Norvasc 5 mg] 5 mg PO DAILY 11/12/20 [History] Insulin Glargine,Hum.rec.anlog [Basaglar Kwikpen U-100] 30 unit SQ BID 11/13/20 [History] Insulin Regular, Human [Novolin R Flexpen] 20 units SQ DAILY PRN PRN 11/13/20 [History] Gabapentin [Neurontin ] 600 mg PO TID 02/17/21 [History] Esomeprazole Magnesium [Nexium] 40 mg PO 12/26/21 [History] Sildenafil Citrate [Viagra] 100 mg PO 12/26/21 [History] Hx Tetanus, Diphtheria Vaccination/Date Given: Yes Hx Influenza Vaccination/Date Given: Yes Hx Pneumococcal Vaccination/Date Given: Yes Travel Risk - International Travel Have you traveled outside of the country in past 3 weeks: No - Coronavirus Screening Are you exhibiting any of the following symptoms?: Yes Symptoms: Vomiting/Diarrhea - Vaccine Status Have you recieved a Covid-19 vaccination: Yes 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[employer] - Vaccination Dates Date of 2cond Vaccination (if applicable): January 2021 - Review of Systems Constitutional: Fatigue, Weakness Eyes: No Symptoms Ears, Nose, & Throat: No Symptoms Respiratory: No Symptoms Cardiac: No Symptoms Abdominal/Gastrointestinal: Abdominal Pain, Nausea, Vomiting, Diarrhea Genitourinary Symptoms: No Symptoms Musculoskeletal: Myalgias Skin: No Symptoms Neurological: No Symptoms Psychological: No Symptoms Endocrine: No Symptoms Hematologic/Lymphatic: No Symptoms Immunological/Allergic: No Symptoms - Past Medical History Pertinent Past Medical History: Yes Neurological History: Other ENT History: Cataracts Cardiac History: Hypertension Respiratory History: Asthma, COPD, Lung Cancer, Pneumonia, Other Endocrine Medical History: Diabetes Type II Musculoskeletal History: Fractures GI Medical History: Gallbladder Disease, Irritable Bowel, Other History: No Pertinent History Psycho-Social History: No Pertinent History Male Reproductive Disorders: No Pertinent History Other Medical History: HAS BEEN IN REMISSION FOR LUNG CANCER X 10 YEARS. HX FR ACTURE RIBS AND T6, T7 6 YEARS AGO AFTER FALL FROM LADDER. 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 both cataracts removed- suboptical implant in;. rt middle lobe remove - Social History Smoking Status: Never smoker Exposure to second hand smoke: No Drug Use: none Patient Lives Alone: No Significant Family History: no pertinent family hx - Nursing Vital Signs Nursing Vital Signs: Initial Vital Signs Temperature 97.9 F 03/29/22 21:30 Pulse Rate 106 H 03/29/22 21:30 Respiratory Rate 20 03/29/22 21:30 Blood Pressure 143/85 03/29/22 21:30 O2 Sat by Pulse Oximetry 99 03/29/22 21:30 Pain Scale Pain Intensity 4 - Physical Exam General Appearance: no apparent distress, alert Eye Exam: PERRL/EOMI, eyes nml inspection Ears, Nose, Throat Exam: normal ENT inspection, TMs normal, pharynx normal, moist mucous membranes Neck Exam: normal inspection, non-tender, supple, full range of motion Respiratory Exam: normal breath sounds, lungs clear Cardiovascular Exam: regular rate/rhythm, normal heart sounds Gastrointestinal/Abdomen Exam: soft, normal bowel sounds, tenderness (Mild generalized), No guarding Back Exam: normal inspection, normal range of motion Extremity Exam: normal inspection, normal range of motion Neurologic Exam: alert, oriented x 3, cooperative, 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 repairer II-XII nml as tested Skin Exam: normal color SpO2 Interpretation: normal SpO2: 99 O2 Delivery: Room Air - Course EKG Interpreted by Me: RATE (105), Sinus Tach, NORMAL AXIS, Right Bundle Branch Block, Q-wave (Inferior leads), Non-specific ST Changes, Other (Nonspecific T wave change) Ordered Tests: Active Orders 24 hr Category Date Time Status EKG-ER Only STAT Care 03/29/22 21:36 Active IV Insertion STAT Care 03/29/22 21:36 Active ABDOMEN AND PELVIS W/0 CONTRAS [CT] Stat Exams 03/29/22 21:36 Taken BLOOD CULTURE Stat Lab 03/29/22 22:35 Received CBC W DIFF Stat Lab 03/29/22 22:30 Completed CMP Stat Lab 03/29/22 22:30 Completed LIPASE Stat Lab 03/29/22 22:30 Completed Lactic Acid Stat Lab 03/29/22 22:35 Completed Lactic Acid Stat Lab 03/30/22 00:41 Received MAGNESIUM Stat Lab 03/29/22 22:30 Completed TROPONIN Q4H Lab 03/29/22 22:30 Completed TROPONIN Q4H Lab 03/30/22 01:45 Ordered TROPONIN Q4H Lab 03/30/22 05:45 Ordered UA W/RFX CULTURE Stat Lab 03/29/22 21:54 Completed VENOUS BLOOD GAS Urgent Lab 03/29/22 22:35 Completed Transfer Order Routine Transfer 03/30/22 Ordered Medication Summary Generic Name Dose Route Start Last Admin Trade Name Freq PRN Reason Stop Dose Admin Remdesivir 200 mg/ Sodium 250 mls @ 125 mls/hr 03/29/22 23:35 Chloride IV 03/30/22 01:34 ONCE ONE Insulin Human Regular 100 unit 100 mls @ 7.412 mls/hr 03/30/22 00:32 03/30/22 00:34 / Sodium Chloride IV 04/29/22 00:31 0.1 unit/kg/hr .[id number] PRN 7.412 mls/hr DKA/HYPERGLYCEMIA Administration Protocol 0.1 UNIT/KG/HR Sodium Chloride 1,000 mls @ 150 mls/hr 03/30/22 00:45 03/30/22 00:34 Sodium Chloride 0.9% 1000 Ml IV 04/29/22 00:44 150 mls/hr .[id number] LEONIE Administration Discontinued Medications Generic Name Dose Route Start Last Admin Trade Name Melloq PRN Reason Stop Dose Admin Sodium Chloride 1,000 mls @ 999 mls/hr 03/29/22 21:36 03/29/22 22:58 Sodium Chloride 0.9% 1000 Ml IV 03/29/22 22:36 Infused .Q1H1M STA Infusion Sodium Chloride Confirm 03/29/22 21:41 Sodium Chloride 0.9% 1000 Ml Administered 03/29/22 21:42 Dose 1,000 mls @ ud .ROUTE .STK-MED ONE Promethazine HCl 25 mg/ Sodium 101 mls @ 200 mls/hr 03/29/22 22:40 03/29/22 22:47 Chloride IV 03/29/22 23:10 200 mls/hr ONCE ONE Administration Sodium Chloride 1,000 mls @ 999 mls/hr 03/29/22 22:42 03/30/22 00:14 Sodium Chloride 0.9% 1000 Ml IV 03/29/22 23:42 Infused .Q1H1M STA Infusion Sodium Chloride Confirm 03/29/22 22:43 Sodium Chloride 0.9% Administered 03/29/22 22:44 Dose 100 mls @ ud .ROUTE .STK-MED ONE Sodium Chloride Confirm 03/29/22 22:43 Sodium Chloride 0.9% 1000 Ml Administered 03/29/22 22:44 Dose 1,000 mls @ ud .ROUTE .STK-MED ONE Sodium Chloride Confirm 03/30/22 00:26 Sodium Chloride 0.9% Administered 03/30/22 00:27 Dose 100 mls @ ud .ROUTE .STK-MED ONE Sodium Chloride Confirm 03/30/22 00:26 Sodium Chloride 0.9% 1000 Ml Administered 03/30/22 00:27 Dose 1,000 mls @ ud .ROUTE .STK-MED ONE Insulin Human Regular Confirm 03/30/22 00:26 Insulin Regular, Human 1 Unit Administered 03/30/22 00:27 Dose 100 unit .ROUTE .STK-MED ONE Ondansetron HCl 4 mg 03/29/22 21:36 03/29/22 21:44 Ondansetron Hcl 4 Mg/2 Ml Vial IV 03/29/22 21:37 4 mg STAT ONE Administration Ondansetron HCl Confirm 03/29/22 21:41 Ondansetron Hcl 4 Mg/2 Ml Vial Administered 03/29/22 21:42 Dose 4 mg .ROUTE .STK-MED ONE Pantoprazole Sodium 40 mg 03/29/22 21:36 03/29/22 21:44 Pantoprazole 40 Mg Vial IV 03/29/22 21:37 40 mg STAT ONE Administration Pantoprazole Sodium Confirm 03/29/22 21:41 Pantoprazole 40 Mg Vial Administered 03/29/22 21:42 Dose 40 mg IV .STK-MED ONE Promethazine HCl Confirm 03/29/22 22:43 Promethazine Hcl 25 Mg/Ml Vial Administered 03/29/22 22:44 Dose 25 mg .ROUTE .STK-MED ONE Lab/Rad Data: Laboratory Result Diagrams 03/29/22 22:30 03/29/22 22:30 Laboratory Results 03/29/22 03/29/22 03/29/22 Range/Units 23:57 22:35 22:35 WBC (4.0-10.5) x10^3/uL RBC (4.1-5.6) x10^6/uL Hgb (12.5-18.0) g/dL Hct (42-50) % MCV (78-100) fL MCH (26-32) pg MCHC (32-36) g/dL RDW (11.5-14.0) % Plt Count (150-450) x10^3/uL MPV (7.5-11.0) fL Gran % (36.0-66.0) % Immature Gran % (Auto) (0.00-0.4) % Nucleat RBC Rel Count (0.00-0.1) % Eos # (Auto) (0-0.5) x10^3/uL Immature Gran # (Auto) (0.00-0.03) x10^3u/L Absolute Lymphs (auto) (1.0-4.6) x10^3/uL Absolute Monos (auto) (0.0-1.3) x10^3/uL Absolute Nucleated RBC (0.00-0.01) x10^3u/L Lymphocytes % (24.0-44.0) % Monocytes % (0.0-12.0) % Eosinophils % (0.00-5.0) % Basophils % (0.0-0.4) % Absolute Granulocytes (1.4-6.9) x10^3/uL Basophils # (0-0.4) x10^3/uL pO2/FiO2 Ratio 21.0 % VBG pH 7.22 L* (7.32-7.42) VBG pCO2 at Pat Temp 22 L* (42-55) mm/Hg VBG pO2 at Pat Temp 80 H (25-40) mm/Hg VBG HCO3 9.0 L* (22-28) meq/L VBG O2 Sat ([place]) 95.7 (95-100) VBG Base Excess -16.7 L (-2.0-2.0) VBG Hemoglobin 16.5 VBG Carboxyhemoglobin 3.7 (0.0-6.9) % T HGB POC Potassium 4.3 (3.5-5.1) Sodium (137-145) mmol/L Potassium (3.5-5.1) mmol/L Chloride (98-107) mmol/L Carbon Dioxide (22-30) mmol/L Anion Gap (5-15) MEQ/L BUN (9-20) mg/dL Creatinine (0.66-1.25) mg/dL Estimated GFR ML/MIN Glucose (74-106) mg/dL Lactic Acid 4.3 H (0.4-2.0) Calcium (8.4-10.2) mg/dL Magnesium (1.6-2.3) mg/dL Total Bilirubin (0.2-1.3) mg/dL AST (17-59) U/L ALT (0-50) U/L Alkaline Phosphatase (38-126) U/L Troponin I (0.000-0.034) ng/mL Serum Total Protein (6.3-8.2) g/dL Albumin (3.5-5.0) g/dL Lipase (23-300) U/L Urinalys Dipstick Clnc Urine Color (YELLOW) Urine Appearance (CLEAR) Urine pH (5-6) Ur Specific [place] (1.005-1.025) POC Urine Protein Conf (Negative) Urine Ketones (NEGATIVE) Urine Nitrite (NEGATIVE) Urine Bilirubin (NEGATIVE) Urine Urobilinogen (0-1) mg/dL Urine Leukocytes (NEGATIVE) Urine WBC (Auto) (0-5) /HPF Urine RBC (Auto) (0-2) /HPF U Epithel Cells (Auto) (FEW) /HPF Urine Bacteria (Auto) (NEGATIVE) /HPF Urine RBC (0-5) Kaden/ul Ur Culture Indicated? Urine Glucose (NEGATIVE) mg/dL Influenza Type A Ag NEGATIVE (NEGATIVE) Influenza Type B Ag NEGATIVE (NEGATIVE) RSV (PCR) NEGATIVE (Negative) SARS-CoV-2 (PCR) NEGATIVE (NEGATIVE) 03/29/22 03/29/22 03/29/22 Range/Units 22:30 22:30 22:30 WBC 15.6 H (4.0-10.5) x10^3/uL RBC 5.15 (4.1-5.6) x10^6/uL Hgb 15.7 (12.5-18.0) g/dL Hct 48.1 (42-50) % MCV 93.4 (78-100) fL MCH 30.5 (26-32) pg MCHC 32.6 (32-36) g/dL RDW 12.8 (11.5-14.0) % Plt Count 298 (150-450) x10^3/uL MPV 9.6 (7.5-11.0) fL Gran % 90.6 H (36.0-66.0) % Immature Gran % (Auto) 0.7 H (0.00-0.4) % Nucleat RBC Rel Count 0.0 (0.00-0.1) % Eos # (Auto) 0.01 (0-0.5) x10^3/uL Immature Gran # (Auto) 0.11 H (0.00-0.03) x10^3u/L Absolute Lymphs (auto) 0.91 L (1.0-4.6) x10^3/uL Absolute Monos (auto) 0.39 (0.0-1.3) x10^3/uL Absolute Nucleated RBC 0.00 (0.00-0.01) x10^3u/L Lymphocytes % 5.8 L (24.0-44.0) % Monocytes % 2.5 (0.0-12.0) % Eosinophils % 0.1 (0.00-5.0) % Basophils % 0.3 (0.0-0.4) % Absolute Granulocytes 14.10 H (1.4-6.9) x10^3/uL Basophils # 0.05 (0-0.4) x10^3/uL pO2/FiO2 Ratio % VBG pH (7.32-7.42) VBG pCO2 at Pat Temp (42-55) mm/Hg VBG pO2 at Pat Temp (25-40) mm/Hg VBG HCO3 (22-28) meq/L VBG O2 Sat ([place]) (95-100) VBG Base Excess (-2.0-2.0) VBG Hemoglobin VBG Carboxyhemoglobin (0.0-6.9) % T HGB POC Potassium (3.5-5.1) Sodium 142 (137-145) mmol/L Potassium 4.4 (3.5-5.1) mmol/L Chloride 106 (98-107) mmol/L Carbon Dioxide 7 L* (22-30) mmol/L Anion Gap 33.0 H (5-15) MEQ/L BUN 31 H (9-20) mg/dL Creatinine 1.21 (0.66-1.25) mg/dL Estimated GFR > 60.0 ML/MIN Glucose 255 H (74-106) mg/dL Lactic Acid (0.4-2.0) Calcium 9.4 (8.4-10.2) mg/dL Magnesium 2.2 (1.6-2.3) mg/dL Total Bilirubin 1.10 (0.2-1.3) mg/dL AST 31 (17-59) U/L ALT 37 (0-50) U/L Alkaline Phosphatase 142 H (38-126) U/L Troponin I < 0.012 (0.000-0.034) ng/mL Serum Total Protein 8.0 (6.3-8.2) g/dL Albumin 5.1 H (3.5-5.0) g/dL Lipase 14 L (23-300) U/L Urinalys Dipstick Clnc Urine Color (YELLOW) Urine Appearance (CLEAR) Urine pH (5-6) Ur Specific [place] (1.005-1.025) POC Urine Protein Conf (Negative) Urine Ketones (NEGATIVE) Urine Nitrite (NEGATIVE) Urine Bilirubin (NEGATIVE) Urine Urobilinogen (0-1) mg/dL Urine Leukocytes (NEGATIVE) Urine WBC (Auto) (0-5) /HPF Urine RBC (Auto) (0-2) /HPF U Epithel Cells (Auto) (FEW) /HPF Urine Bacteria (Auto) (NEGATIVE) /HPF Urine RBC (0-5) Kaden/ul Ur Culture Indicated? Urine Glucose (NEGATIVE) mg/dL Influenza Type A Ag (NEGATIVE) Influenza Type B Ag (NEGATIVE) RSV (PCR) (Negative) SARS-CoV-2 (PCR) (NEGATIVE) 03/29/22 Range/Units 21:54 WBC (4.0-10.5) x10^3/uL RBC (4.1-5.6) x10^6/uL Hgb (12.5-18.0) g/dL Hct (42-50) % MCV (78-100) fL MCH (26-32) pg MCHC (32-36) g/dL RDW (11.5-14.0) % Plt Count (150-450) x10^3/uL MPV (7.5-11.0) fL Gran % (36.0-66.0) % Immature Gran % (Auto) (0.00-0.4) % Nucleat RBC Rel Count (0.00-0.1) % Eos # (Auto) (0-0.5) x10^3/uL Immature Gran # (Auto) (0.00-0.03) x10^3u/L Absolute Lymphs (auto) (1.0-4.6) x10^3/uL Absolute Monos (auto) (0.0-1.3) x10^3/uL Absolute Nucleated RBC (0.00-0.01) x10^3u/L Lymphocytes % (24.0-44.0) % Monocytes % (0.0-12.0) % Eosinophils % (0.00-5.0) % Basophils % (0.0-0.4) % Absolute Granulocytes (1.4-6.9) x10^3/uL Basophils # (0-0.4) x10^3/uL pO2/FiO2 Ratio % VBG pH (7.32-7.42) VBG pCO2 at Pat Temp (42-55) mm/Hg VBG pO2 at Pat Temp (25-40) mm/Hg VBG HCO3 (22-28) meq/L VBG O2 Sat ([place]) (95-100) VBG Base Excess (-2.0-2.0) VBG Hemoglobin VBG Carboxyhemoglobin (0.0-6.9) % T HGB POC Potassium (3.5-5.1) Sodium (137-145) mmol/L Potassium (3.5-5.1) mmol/L Chloride (98-107) mmol/L Carbon Dioxide (22-30) mmol/L Anion Gap (5-15) MEQ/L BUN (9-20) mg/dL Creatinine (0.66-1.25) mg/dL Estimated GFR ML/MIN Glucose (74-106) mg/dL Lactic Acid (0.4-2.0) Calcium (8.4-10.2) mg/dL Magnesium (1.6-2.3) mg/dL Total Bilirubin (0.2-1.3) mg/dL AST (17-59) U/L ALT (0-50) U/L Alkaline Phosphatase (38-126) U/L Troponin I (0.000-0.034) ng/mL Serum Total Protein (6.3-8.2) g/dL Albumin (3.5-5.0) g/dL Lipase (23-300) U/L Urinalys Dipstick Clnc MAIN LAB Urine Color YELLOW (YELLOW) Urine Appearance CLEAR (CLEAR) Urine pH 5.5 (5-6) Ur Specific [place] >=1.030 (1.005-1.025) POC Urine Protein Conf NEGATIVE (Negative) Urine Ketones LARGE-80 (NEGATIVE) Urine Nitrite NEGATIVE (NEGATIVE) Urine Bilirubin NEGATIVE (NEGATIVE) Urine Urobilinogen 0.2 (0-1) mg/dL Urine Leukocytes NEGATIVE (NEGATIVE) Urine WBC (Auto) NONE (0-5) /HPF Urine RBC (Auto) NONE (0-2) /HPF U Epithel Cells (Auto) RARE (FEW) /HPF Urine Bacteria (Auto) NONE (NEGATIVE) /HPF Urine RBC NEGATIVE (0-5) Kaden/ul Ur Culture Indicated? NO Urine Glucose 500 (NEGATIVE) mg/dL Influenza Type A Ag (NEGATIVE) Influenza Type B Ag (NEGATIVE) RSV (PCR) (Negative) SARS-CoV-2 (PCR) (NEGATIVE) - Progress Progress: improved Progress Note: 03/30/22 00:02 56 years old is evaluated for abdominal pain with nausea vomiting and diarrhea with positive COVID-19. Given fluid bolus along with symptomatic treatment, on reevaluation feeling much better. Work-up showed white count of 15, pH of 7.2 with a bicarb of 7, gap of 33 and lactate of 4.3. Positive ketones in urine. EKG showed sinus tach with no acute ST elevations. Is given a dose of remdesivir as well. Patient does not have any respiratory symptoms at all. I believe patient has a combination of factor with DKA and dehydration causing above lab abnormalities. Started on low-dose insulin drip. Discussed with Dr. Barajas, reviewed history, work-up and patient is excepted for admission. Discussed with : Rajiv Counseled pt/family regarding: lab results, diagnosis, rad results - Departure Departure Disposition: Observation Clinical Impression: DKA (diabetic ketoacidoses), COVID-19, Acute gastroenteritis Condition: Stable Critical Care Time: No Referrals: HARRISON VENTURA MD [Primary Care Provider] - Follow up/PCP as directed
[2022-03-29 22:20] LABS: Epithelial Cells RARE /HPF (FEW)
[2022-03-29 22:21] LABS: Appearance CLEAR (CLEAR); Bilirubin NEGATIVE (NEGATIVE); Glucose 500 mg/dL (NEGATIVE); Ketones LARGE-80 (NEGATIVE); Ph 5.5 (5-6); Protein,Urine Dip NEGATIVE (Negative); RBC NEGATIVE Ery/ul (0-5); Specific Gravity >=1.030 (1.005-1.025); Urobilinogen 0.2 mg/dL (0-1)
[2022-03-29 22:22] LABS: Dipstick done @ ? MAIN LAB; Nitrite NEGATIVE (NEGATIVE); Urine Cultured Indicated? NO
[2022-03-29] MEDS ORDERED: Phenergan 25 MG INJ*** 25 MG in Sodium Chloride 0.9% 100 ML IV ONE (22:40)
[2022-03-29 22:43] LABS: VBG BASE EXCESS -16.7 (-2.0-2.0); VBG CARBOXYHEMOGLOBIN 3.7 % T HGB (0.0-6.9); VBG HEMOGLOBIN 16.5; VBG O2 SATURATION 95.7 (95-100); VBG POTASSIUM 4.3 (3.5-5.1); VBG pH 7.22 (7.32-7.42)
[2022-03-29] MEDS ORDERED: Sodium Chloride 0.9% 100 ML ONE (22:43)
[2022-03-29] MEDS ORDERED: Phenergan 25 MG INJ ONE (22:43)
[2022-03-29 22:47] LABS: Basophil (Absolute #) 0.05 x10^3/uL (0-0.4); Eosinophil % 0.1 % (0.00-5.0); Eosinophil (Absolute #) 0.01 x10^3/uL (0-0.5); Hematocrit 48.1 % (42-50); Hemoglobin 15.7 g/dL (12.5-18.0); Lymphocyte (Absolute #) 0.91 x10^3/uL (1.0-4.6); Lymphocytes % 5.8 % (24.0-44.0); Mean Cell Volume 93.4 fL (78-100); Mean Corpuscular Hemoglobin 30.5 pg (26-32); Mean Corpuscular Hgb Concent. 32.6 g/dL (32-36); Mean Platelet Volume 9.6 fL (7.5-11.0); Monocyte (Absolute #) 0.39 x10^3/uL (0.0-1.3); Monocytes % 2.5 % (0.0-12.0); Neutrophil % 90.6 % (36.0-66.0); Platelet Count 298 x10^3/uL (150-450); Red Blood Count 5.15 x10^6/uL (4.1-5.6); Red Cell Distribution Width 12.8 % (11.5-14.0); White Blood Count 15.6 x10^3/uL (4.0-10.5)
[2022-03-29 23:06] LABS: ALBUMIN 5.1 g/dL (3.5-5.0); ALKALINE PHOSPHATASE 142 U/L (38-126); BLOOD UREA NITROGEN 31 mg/dL (9-20); CHLORIDE 106 mmol/L (98-107); Calcium 9.4 mg/dL (8.4-10.2); Creatinine 1 1.21 mg/dL (0.66-1.25); EST GLOMERULAR FILTRATION RATE > 60.0 ML/MIN; Glucose 255 mg/dL (74-106); LIPASE 14 U/L (23-300); MAGNESIUM 2.2 mg/dL (1.6-2.3); Potassium 4.4 mmol/L (3.5-5.1); SGOT/AST 31 U/L (17-59); SGPT/ALT 37 U/L (0-50); SODIUM 142 mmol/L (137-145)
[2022-03-29 23:15] LABS: Carbon Dioxide 7 mmol/L (22-30)
[2022-03-29] MEDS ORDERED: REMDESIVIR 200 MG in Sodium Chloride 0.9% 250 ML 250 ML IV ONE (23:35)
[2022-03-30] MEDS ORDERED: HUMULIN R ONE (00:26)
[2022-03-30] MEDS ORDERED: Sodium Chloride 0.9% 1000 ML 1,000 ML ONE ×2 (00:26→22:08)
[2022-03-30] MEDS ORDERED: Sodium Chloride 0.9% 100 ML ONE (00:26)
[2022-03-30] MEDS: HUMULIN R 100 UNIT in Sodium Chloride 0.9% 100 ML IV PRN ×2 (00:34→04:22)
[2022-03-30 00:36] LABS: INFLUENZA A NEGATIVE (NEGATIVE); INFLUENZA B NEGATIVE (NEGATIVE); RESPIRATORY SYNCTIAL VIRUS NEGATIVE (Negative); SARS-CoV-2 Xpert Express NEGATIVE (NEGATIVE)
[2022-03-30] MEDS ORDERED: Sodium Chloride 0.9% 1000 ML 1,000 ML IV SCH (00:45)
[2022-03-30] MEDS ORDERED: Reglan 10 MG/2 ML IV ONE (00:49)
[2022-03-30] MEDS ORDERED: BENADRYL 50 MG/ML IV ONE (00:49)
[2022-03-30] MEDS ORDERED: BENADRYL 50 MG/ML ONE (00:52)
[2022-03-30] MEDS ORDERED: Reglan 10 MG/2 ML ONE (00:52)
[2022-03-30] MEDS ORDERED: TYLENOL 325 MG PO PRN (01:28)
[2022-03-30] MEDS ORDERED: Zofran 4 MG/2 ML VIAL IV PRN (01:28)
[2022-03-30] MEDS ORDERED: DUONEB 0.5-3 MG/3 ml Neb IH PRN (01:28)
[2022-03-30] MEDS ORDERED: MORPHINE SULFATE 2 MG INJ IV PRN (01:28)
[2022-03-30] MEDS ORDERED: PROVENTIL 2.5 MG/3 ML NEB IH PRN ×2 (02:36→12:15)
[2022-03-30] MEDS ORDERED: VENTOLIN COMMON CANISTER IH PRN ×2 (02:37→12:15)
[2022-03-30 02:38] LABS: ALBUMIN 4.6 g/dL (3.5-5.0); ALKALINE PHOSPHATASE 121 U/L (38-126); ANION GAP 27.7 MEQ/L (5-15); BLOOD UREA NITROGEN 28 mg/dL (9-20); CHLORIDE 111 mmol/L (98-107); Calcium 8.6 mg/dL (8.4-10.2); Creatinine 1 1.22 mg/dL (0.66-1.25); Direct Bilirubin 0.2 mg/dL (0.0-0.4); EST GLOMERULAR FILTRATION RATE > 60.0 ML/MIN; Glucose 260 mg/dL (74-106); Potassium 4.6 mmol/L (3.5-5.1); SGOT/AST 25 U/L (17-59); SGPT/ALT 33 U/L (0-50); SODIUM 142 mmol/L (137-145); Total Protein 7.2 g/dL (6.3-8.2)
[2022-03-30 02:44] LABS: Carbon Dioxide 7 mmol/L (22-30)
[2022-03-30] MEDS ORDERED: D5W/0.45NS W/ 20mEq KCl 1000 ML 1,000 ML IV ONE (05:07)
[2022-03-30] MEDS: D5W/0.45NS W/ 20mEq KCl 1000 ML 1,000 ML IV SCH ×3 (05:13→20:06)
[2022-03-30] MEDS ORDERED: DEXTROSE 5% -NACL 0.9% 1000 ML + KCl 20 MEQ 1,000 ML IV SCH (05:30)
--- NOTE | 2022-03-30 07:22 | XRAY ---
Indication: Abdomen pain, nausea, and vomiting. Multiple contiguous axial images obtained through the abdomen and pelvis without contrast. Comparison: September 01, 2021 Lung bases again demonstrates right midlung pleural-parenchymal fibrosis/scarring. Heart not enlarged. Visualized esophagus is now mildly fluid distended favoring gastroesophageal reflux. Stomach is mildly fluid distended. Noncontrasted stomach and bowel loops appear nonobstructed again with normal appendix. Mild descending and sigmoid diverticulosis without diverticulitis. No free fluid/air. Again previous cholecystectomy. Remaining liver, pancreas, spleen, adrenal glands, kidneys, ureters, and bladder are unremarkable for noncontrast exam. Again mild scattered aortoiliac calcifications without AAA. Osseous structures intact again with osteopenia, mild multilevel degenerative spondylosis, and remote L3 superior endplate fracture. Impression: 1. Fluid distended distal esophagus favoring GERD. 2. Chronic findings including right mid lung pleural-parenchymal fibrosis/scarring, colonic diverticulosis, arteriosclerotic disease, and chronic bony findings. 3. Remaining CT abdomen/pelvis without contrast exam is negative. Comment: Preliminary interpretation made by [facility]. No critical discrepancy.
[2022-03-30 07:23] LABS: Hematocrit 42.8 % (42-50); Hemoglobin 14.5 g/dL (12.5-18.0); Mean Cell Volume 91.5 fL (78-100); Mean Corpuscular Hgb Concent. 33.9 g/dL (32-36); Mean Platelet Volume 9.6 fL (7.5-11.0); Platelet Count 278 x10^3/uL (150-450); Red Blood Count 4.68 x10^6/uL (4.1-5.6); White Blood Count 15.6 x10^3/uL (4.0-10.5)
[2022-03-30 08:00] LABS: ALBUMIN 4.5 g/dL (3.5-5.0); ALKALINE PHOSPHATASE 109 U/L (38-126); ANION GAP 24.7 MEQ/L (5-15); BLOOD UREA NITROGEN 28 mg/dL (9-20); CHLORIDE 112 mmol/L (98-107); Calcium 8.9 mg/dL (8.4-10.2); Creatinine 1 1.23 mg/dL (0.66-1.25); Direct Bilirubin 0.2 mg/dL (0.0-0.4); EST GLOMERULAR FILTRATION RATE > 60.0 ML/MIN; Glucose 220 mg/dL (74-106); Potassium 4.6 mmol/L (3.5-5.1); SGOT/AST 21 U/L (17-59); SGPT/ALT 31 U/L (0-50); SODIUM 144 mmol/L (137-145); Total Protein 6.9 g/dL (6.3-8.2)
[2022-03-30 08:03] LABS: Carbon Dioxide 12 mmol/L (22-30)
[2022-03-30] MEDS ORDERED: PROTONIX 40 MG IV IV SCH (10:00)
[2022-03-30 11:27] LABS: ALBUMIN 4.6 g/dL (3.5-5.0); ALKALINE PHOSPHATASE 116 U/L (38-126); ANION GAP 19.9 MEQ/L (5-15); BLOOD UREA NITROGEN 26 mg/dL (9-20); CHLORIDE 113 mmol/L (98-107); Calcium 9.1 mg/dL (8.4-10.2); Creatinine 1 1.11 mg/dL (0.66-1.25); Direct Bilirubin 0.4 mg/dL (0.0-0.4); EST GLOMERULAR FILTRATION RATE > 60.0 ML/MIN; Glucose 215 mg/dL (74-106); Potassium 4.4 mmol/L (3.5-5.1); SGOT/AST 23 U/L (17-59); SGPT/ALT 30 U/L (0-50); SODIUM 143 mmol/L (137-145); Total Protein 7.1 g/dL (6.3-8.2)
[2022-03-30] MEDS ORDERED: Sodium Chloride 0.9% 1000 ML 1,000 ML IV STA (11:32)
[2022-03-30 11:34] LABS: Carbon Dioxide 15 mmol/L (22-30)
[2022-03-30] MEDS ORDERED: NON-FORMULARY ITEM (Dulaglutide [Trulicity] 0.75 MG/0.5 ML Pen.Injctr) SQ SCH (12:15)
[2022-03-30 14:29] LABS: ALBUMIN 4.1 g/dL (3.5-5.0); ALKALINE PHOSPHATASE 103 U/L (38-126); ANION GAP 15.3 MEQ/L (5-15); BLOOD UREA NITROGEN 23 mg/dL (9-20); CHLORIDE 117 mmol/L (98-107); Calcium 8.6 mg/dL (8.4-10.2); Creatinine 1 0.98 mg/dL (0.66-1.25); Direct Bilirubin 0.2 mg/dL (0.0-0.4); EST GLOMERULAR FILTRATION RATE > 60.0 ML/MIN; Glucose 165 mg/dL (74-106); SGOT/AST 19 U/L (17-59); SGPT/ALT 27 U/L (0-50); SODIUM 144 mmol/L (137-145); Total Protein 6.7 g/dL (6.3-8.2)
[2022-03-30 14:42] LABS: Carbon Dioxide 14 mmol/L (22-30)
[2022-03-30] MEDS ORDERED: HUMULIN R SQ SCH (15:00)
[2022-03-30] MEDS ORDERED: MEDICATION INTERVENTION MC SCH ×2 (15:00)
[2022-03-30] MEDS: NEURONTIN PO SCH ×2 (16:11→22:14)
[2022-03-30 20:27] LABS: ANION GAP 14.1 MEQ/L (5-15); BLOOD UREA NITROGEN 18 mg/dL (9-20); CHLORIDE 113 mmol/L (98-107); Calcium 9.1 mg/dL (8.4-10.2); Carbon Dioxide 20 mmol/L (22-30); EST GLOMERULAR FILTRATION RATE > 60.0 ML/MIN; Glucose 140 mg/dL (74-106); Potassium 3.9 mmol/L (3.5-5.1); SODIUM 143 mmol/L (137-145)
[2022-03-30] MEDS ORDERED: NON-FORMULARY ITEM (Esomeprazole Magnesium [Nexium] 40 MG Suspdr.Pkt) PO SCH (22:00)
[2022-03-30] MEDS ORDERED: NON-FORMULARY ITEM (Insulin Glargine,Hum.Rec.Anlog [Basaglar Kwikpen U-100] 100 UNIT/ML In SQ SCH (22:00)
[2022-03-30] MEDS ORDERED: NORVASC 5 MG PO PRN (22:00)
[2022-03-30] MEDS ORDERED: Lantus Insulin ONE (22:07)
[2022-03-30] MEDS: Lantus Insulin SQ SCH (22:13)
[2022-03-30] MEDS: Sodium Chloride 0.9% 1000 ML 1,000 ML IV SCH (22:13)
[2022-03-30] MEDS: Lopressor 25MG Tab PO SCH (22:14)
[2022-03-31] MEDS: Sodium Chloride 0.9% 1000 ML 1,000 ML IV SCH (05:12)
[2022-03-31 05:46] LABS: Absolute Neutrophil Ct (ANC) 9.62 x10^3/uL (1.4-6.9); Basophil (Absolute #) 0.04 x10^3/uL (0-0.4); Eosinophil (Absolute #) 0 x10^3/uL (0-0.5); Hematocrit 40.6 % (42-50); Hemoglobin 13.4 g/dL (12.5-18.0); Lymphocyte (Absolute #) 1.68 x10^3/uL (1.0-4.6); Lymphocytes % 13.5 % (24.0-44.0); Mean Cell Volume 93.1 fL (78-100); Mean Corpuscular Hemoglobin 30.7 pg (26-32); Mean Platelet Volume 9.6 fL (7.5-11.0); Monocyte (Absolute #) 1.03 x10^3/uL (0.0-1.3); Monocytes % 8.3 % (0.0-12.0); Neutrophil % 77.3 % (36.0-66.0); Platelet Count 240 x10^3/uL (150-450); Red Blood Count 4.36 x10^6/uL (4.1-5.6); White Blood Count 12.4 x10^3/uL (4.0-10.5)
[2022-03-31 06:04] LABS: ANION GAP 13.5 MEQ/L (5-15); BLOOD UREA NITROGEN 16 mg/dL (9-20); CHLORIDE 112 mmol/L (98-107); Calcium 8.4 mg/dL (8.4-10.2); Carbon Dioxide 20 mmol/L (22-30); Creatinine 1 0.85 mg/dL (0.66-1.25); EST GLOMERULAR FILTRATION RATE > 60.0 ML/MIN; Glucose 107 mg/dL (74-106); Potassium 3.2 mmol/L (3.5-5.1); SODIUM 142 mmol/L (137-145)
[2022-03-31] MEDS: HUMULIN R SQ SCH ×2 (09:23→12:43)
[2022-03-31] MEDS ORDERED: VITAMIN D2 PO SCH (10:00)
[2022-03-31] MEDS ORDERED: JARDIANCE PO SCH (10:00)
[2022-03-31] MEDS ORDERED: Protonix 40MG Tablet PO SCH (10:00)
[2022-03-31] MEDS ORDERED: TESTOSTERONE TOP SCH (10:00)
[2022-03-31] MEDS: Lantus Insulin SQ SCH (10:31)
[2022-03-31] MEDS: Lopressor 25MG Tab PO SCH (10:33)
[2022-03-31] MEDS: NEURONTIN PO SCH (10:33)
[2022-03-31 12:02] VITALS: BP 146/87; PULSE 67; O2SAT 98
[2022-03-31] MEDS ORDERED: Klor Con PO ONE (12:03)
--- NOTE | 2022-03-31 19:41 | PCM.SSS ---
History of Present Illness - Chief Complaint Chief Complaint: nausea vomiting diarrhea for 2-3 days History of Present Illness: is a 56 year old male.with a history of diabetes mellitus presented in the ER with chief complaint of abdominal pain with nausea vomiting and diarrhea off and on for the last 6 days. Patient is tested positive for COVID-19. Patient reports having multiple episodes of nonprojectile, nonbilious vomiting which are getting worse for the last couple of days. He is not able to hold anything down. Abdominal pain is dull aching to cramping mild to moderate which is more with vomiting. He had diarrhea initially which is improved now and last episode of loose stool was yesterday. Having generalized weakness fatigue and tiredness. Denies any fever or chills. Timing/Duration: day(s) (6), gradual onset, worse Activities at Onset: rest Quality: aching, cramping Abdominal Pain Onset Location: generalized abdomen Pain Radiation: no radiation Severity of Pain-Max: moderate Severity of Pain-Current: mild Modifying Factors: Worsens With: movement, palpation, vomiting Associated Symptoms: diarrhea, fatigue, nausea, vomiting, No shortness of breath Previous symptoms: no prior history - Review of Systems Constitutional: Weakness, No Fever, No Chills Eyes: No Symptoms Ears, Nose, & Throat: No Symptoms Respiratory: No Cough, No Short Of Breath Cardiac: No Chest Pain, No Edema, No Syncope Abdominal/Gastrointestinal: Nausea, Vomiting, Diarrhea, No Abdominal Pain Genitourinary Symptoms: No Dysuria Musculoskeletal: No Back Pain, No Neck Pain Skin: No Rash Neurological: No Dizziness, No Focal Weakness, No Sensory Changes Psychological: No Symptoms Endocrine: No Symptoms Hematologic/Lymphatic: No Symptoms Immunological/Allergic: No Symptoms Medications & Allergies Home Medications: Home Medication List Albuterol 2.5 mg/3 ml Neb [Proventil 2.5 mg/3 ml Neb] 3 ml IH QID PRN PRN 10/15/16 [History Confirmed 03/30/22] Albuterol Sulfate [Proair Hfa] 2 puffs IH QIDPRN PRN 10/15/16 [History Confirmed 03/30/22] Amlodipine Besylate 5 mg [Norvasc 5 mg] 10 mg PO BID 11/12/20 [History Confirmed 03/30/22] Insulin Glargine,Hum.rec.anlog [Basaglar Kwikpen U-100] 20 unit SQ BID 11/13/20 [History Confirmed 03/30/22] Insulin Regular, Human [Novolin R Flexpen] 10 units SQ UD 11/13/20 [History Confirmed 03/30/22] Gabapentin [Neurontin ] 600 mg PO TID 02/17/21 [History Confirmed 2] Esomeprazole Magnesium [Nexium] 40 mg PO BID 12/26/21 [History Confirmed 03/30/22] Sildenafil Citrate [Viagra] 100 mg PO DAILY PRN PRN 12/26/21 [History Confirmed 03/30/22] Dulaglutide [Trulicity] 0.75 mg SQ UD 03/30/22 [History Confirmed 03/30/22] Empagliflozin [Jardiance] 25 mg PO DAILY 03/30/22 [History Confirmed 03/30/22] Ergocalciferol (Vitamin D2) [Vitamin D2] 50,000 unit PO UD 03/30/22 [History Confirmed 03/30/22] Metoprolol Tartrate 25 mg [Lopressor 25MG Tab] 25 mg PO BID 03/30/22 [History Confirmed 03/30/22] Testosterone 2 pump TOP DAILY 03/30/22 [History Confirmed 03/30/22] Allergies/Adverse Reactions: Allergies Allergy/AdvReac Type Severity Reaction Status Date / Time lisinopril Allergy Mild Anaphylactic Verified 03/30/22 01:35 Reaction naproxen AdvReac Mild Rash Verified 03/30/22 01:35 - Past Medical History Past Medical History: Yes Neurological History: Peripheral Neuropathy ENT History: Cataracts Cardiac History: Hypertension Respiratory History: Asthma, COPD, Lung Cancer, Pneumonia, Other Endocrine Medical History: Diabetes Type II Musculoskelatal History: Fractures GI Medical History: GERD, Gallbladder Disease, Irritable Bowel, Other History: No Pertinent History Pyscho-Social History: No Pertinent History Male Reproductive Disorders: No Pertinent History Comment: HAS BEEN IN REMISSION FOR LUNG CANCER X 10 YEARS. HX FRACTURE RIBS AND T6, T7 6 YEARS AGO AFTER FALL FROM LADDER. 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 both cataracts removed- suboptical implant in;. rt middle lobe remove - Social History Smoking Status: Never smoker Exposure to second hand smoke: No Alcohol: None Drug Use: none Significant Family History: no pertinent family hx - Physical Exam Vital Signs: Vital Signs - 24 hr Temp Pulse Resp BP Pulse Ox 03/31/22 12:00 97.9 F 67 16 146/87 98 03/31/22 08:00 70 03/31/22 07:56 98.7 F 70 12 130/59 95 03/31/22 07:14 69 18 98 03/31/22 04:00 98.5 F 71 18 136/74 99 03/31/22 00:01 83 03/31/22 00:00 83 18 152/78 97 03/30/22 20:00 97.0 F 88 18 160/92 98 General Appearance: no apparent distress, alert Neurologic Exam: alert, oriented x 3, cooperative, normal mood/affect, nml cer ebellar function, nml station & gait, sensation nml, No motor deficits Eye Exam: PERRL/EOMI, eyes nml inspection Ears, Nose, Throat Exam: normal ENT inspection, TMs normal, pharynx normal, moist mucous membranes Neck Exam: normal inspection, non-tender, supple, full range of motion Respiratory Exam: normal breath sounds, lungs clear, No respiratory distress Cardiovascular Exam: regular rate/rhythm, normal heart sounds, normal peripheral pulses Gastrointestinal/Abdomen Exam: soft, normal bowel sounds, No tenderness, No mass Back Exam: normal inspection, normal range of motion, No CVA tenderness, No vertebral tenderness Extremity Exam: normal inspection, normal range of motion, pelvis stable Skin Exam: normal color, warm, dry, No rash Lymphatic Exam: No adenopathy Results - Labs Lab/Micro Results: Lab Results-Last 24 Hours 03/30/22 03/30/22 03/30/22 Range/Units 14:10 20:09 21:08 WBC (4.0-10.5) x10^3/uL RBC (4.1-5.6) x10^6/uL Hgb (12.5-18.0) g/dL Hct (42-50) % MCV (78-100) fL MCH (26-32) pg MCHC (32-36) g/dL RDW (11.5-14.0) % Plt Count (150-450) x10^3/uL MPV (7.5-11.0) fL Gran % (36.0-66.0) % Immature Gran % (Auto) (0.00-0.4) % Nucleat RBC Rel Count (0.00-0.1) % Eos # (Auto) (0-0.5) x10^3/uL Immature Gran # (Auto) (0.00-0.03) x10^3u/L Absolute Lymphs (auto) (1.0-4.6) x10^3/uL Absolute Monos (auto) (0.0-1.3) x10^3/uL Absolute Nucleated RBC (0.00-0.01) x10^3u/L Lymphocytes % (24.0-44.0) % Monocytes % (0.0-12.0) % Eosinophils % (0.00-5.0) % Basophils % (0.0-0.4) % Absolute Granulocytes (1.4-6.9) x10^3/uL Basophils # (0-0.4) x10^3/uL Sodium 144 143 (137-145) mmol/L Potassium 4.0 3.9 (3.5-5.1) mmol/L Chloride 117 H 113 H (98-107) mmol/L Carbon Dioxide 14 L* 20 L (22-30) mmol/L Anion Gap 15.3 H 14.1 (5-15) MEQ/L BUN 23 H 18 (9-20) mg/dL Creatinine 0.98 1.00 (0.66-1.25) mg/dL Estimated GFR > 60.0 > 60.0 ML/MIN Glucose 165 H 140 H (74-106) mg/dL POC Glucometer 144 H (74 to 106) mg/dL Calcium 8.6 9.1 (8.4-10.2) mg/dL Total Bilirubin 0.90 (0.2-1.3) mg/dL Direct Bilirubin 0.2 (0.0-0.4) mg/dL AST 19 (17-59) U/L ALT 27 (0-50) U/L Alkaline Phosphatase 103 (38-126) U/L Serum Total Protein 6.7 (6.3-8.2) g/dL Albumin 4.1 (3.5-5.0) g/dL 03/30/22 03/31/22 03/31/22 Range/Units 22:04 01:53 05:45 WBC 12.4 H (4.0-10.5) x10^3/uL RBC 4.36 (4.1-5.6) x10^6/uL Hgb 13.4 (12.5-18.0) g/dL Hct 40.6 L (42-50) % MCV 93.1 (78-100) fL MCH 30.7 (26-32) pg MCHC 33.0 (32-36) g/dL RDW 13.0 (11.5-14.0) % Plt Count 240 (150-450) x10^3/uL MPV 9.6 (7.5-11.0) fL Gran % 77.3 H (36.0-66.0) % Immature Gran % (Auto) 0.6 H (0.00-0.4) % Nucleat RBC Rel Count 0.0 (0.00-0.1) % Eos # (Auto) 0 (0-0.5) x10^3/uL Immature Gran # (Auto) 0.07 H (0.00-0.03) x10^3u/L Absolute Lymphs (auto) 1.68 (1.0-4.6) x10^3/uL Absolute Monos (auto) 1.03 (0.0-1.3) x10^3/uL Absolute Nucleated RBC 0.00 (0.00-0.01) x10^3u/L Lymphocytes % 13.5 L (24.0-44.0) % Monocytes % 8.3 (0.0-12.0) % Eosinophils % 0.0 (0.00-5.0) % Basophils % 0.3 (0.0-0.4) % Absolute Granulocytes 9.62 H (1.4-6.9) x10^3/uL Basophils # 0.04 (0-0.4) x10^3/uL Sodium (137-145) mmol/L Potassium (3.5-5.1) mmol/L Chloride (98-107) mmol/L Carbon Dioxide (22-30) mmol/L Anion Gap (5-15) MEQ/L BUN (9-20) mg/dL Creatinine (0.66-1.25) mg/dL Estimated GFR ML/MIN Glucose (74-106) mg/dL POC Glucometer 139 H 110 H (74 to 106) mg/dL Calcium (8.4-10.2) mg/dL Total Bilirubin (0.2-1.3) mg/dL Direct Bilirubin (0.0-0.4) mg/dL AST (17-59) U/L ALT (0-50) U/L Alkaline Phosphatase (38-126) U/L Serum Total Protein (6.3-8.2) g/dL Albumin (3.5-5.0) g/dL 03/31/22 03/31/22 03/31/22 Range/Units 05:45 07:31 11:57 WBC (4.0-10.5) x10^3/uL RBC (4.1-5.6) x10^6/uL Hgb (12.5-18.0) g/dL Hct (42-50) % MCV (78-100) fL MCH (26-32) pg MCHC (32-36) g/dL RDW (11.5-14.0) % Plt Count (150-450) x10^3/uL MPV (7.5-11.0) fL Gran % (36.0-66.0) % Immature Gran % (Auto) (0.00-0.4) % Nucleat RBC Rel Count (0.00-0.1) % Eos # (Auto) (0-0.5) x10^3/uL Immature Gran # (Auto) (0.00-0.03) x10^3u/L Absolute Lymphs (auto) (1.0-4.6) x10^3/uL Absolute Monos (auto) (0.0-1.3) x10^3/uL Absolute Nucleated RBC (0.00-0.01) x10^3u/L Lymphocytes % (24.0-44.0) % Monocytes % (0.0-12.0) % Eosinophils % (0.00-5.0) % Basophils % (0.0-0.4) % Absolute Granulocytes (1.4-6.9) x10^3/uL Basophils # (0-0.4) x10^3/uL Sodium 142 (137-145) mmol/L Potassium 3.2 L (3.5-5.1) mmol/L Chloride 112 H (98-107) mmol/L Carbon Dioxide 20 L (22-30) mmol/L Anion Gap 13.5 (5-15) MEQ/L BUN 16 (9-20) mg/dL Creatinine 0.85 (0.66-1.25) mg/dL Estimated GFR > 60.0 ML/MIN Glucose 107 H (74-106) mg/dL POC Glucometer 83 89 (74 to 106) mg/dL Calcium 8.4 (8.4-10.2) mg/dL Total Bilirubin (0.2-1.3) mg/dL Direct Bilirubin (0.0-0.4) mg/dL AST (17-59) U/L ALT (0-50) U/L Alkaline Phosphatase (38-126) U/L Serum Total Protein (6.3-8.2) g/dL Albumin (3.5-5.0) g/dL Microbiology 03/29/22 22:35 Blood Culture - Preliminary Blood NO GROWTH TO DATE 03/29/22 22:30 Blood Culture - Preliminary Blood NO GROWTH TO DATE Accuchecks Date 03/31/22 Date 03/31/22 Date 03/31/22 Date 03/30/22 Date 03/30/22 Date 03/30/22 Time 12:03 Time 05:30 Time 01:55 Time 22:00 Time 21:00 Time 20:00 - Radiology Impressions Radiology Exams & Impressions: Radiology Procedures Category Date Time Status ABDOMEN AND PELVIS W/0 CONTRAS [CT] Stat Exams 03/29/22 21:[address]/ABDOMEN AND PELVIS W/0 CONTRAS Indication: Abdomen pain, nausea, and vomiting. Multiple contiguous axial images obtained through the abdomen and pelvis without contrast. Comparison: September 01, 2021 Lung bases again demonstrates right midlung pleural-parenchymal fibrosis/scarring. Heart not enlarged. Visualized esophagus is now mildly fluid distended favoring gastroesophageal reflux. Stomach is mildly fluid distended. Noncontrasted stomach and bowel loops appear nonobstructed again with normal appendix. Mild descending and sigmoid diverticulosis without diverticulitis. No free fluid/air. Again previous cholecystectomy. Remaining liver, pancreas, spleen, adrenal glands, kidneys, ureters, and bladder are unremarkable for noncontrast exam. Again mild scattered aortoiliac calcifications without AAA. Osseous structures intact again with osteopenia, mild multilevel degenerative spondylosis, and remote L3 superior endplate fracture. Impression: 1. Fluid distended distal esophagus favoring GERD. 2. Chronic findings including right mid lung pleural-parenchymal fibrosis/scarring, colonic diverticulosis, arteriosclerotic disease, and chronic bony findings. 3. Remaining CT abdomen/pelvis without contrast exam is negative. Assessment/Plan (1) DKA (diabetic ketoacidoses) Status: Acute Qualifiers: Diabetes mellitus type: type 2 Diabetes mellitus complication detail: without coma Qualified Code(s): E11.10 - Type 2 diabetes mellitus with ketoacidosis without coma Assessment & Plan: Chief Complaint Diagnosis DKA Allergies Allergy/AdvReac Type Severity Reaction Status Date / Time lisinopril Allergy Mild Anaphylactic Verified 03/30/22 01:35 Reaction naproxen AdvReac Mild Rash Verified 03/30/22 01:35 Vital Signs (Last 24 hours) Temp Pulse Resp BP Pulse Ox 03/31/22 12:00 97.9 F 67 16 146/87 98 03/31/22 08:00 70 03/31/22 07:56 98.7 F 70 12 130/59 95 03/31/22 07:14 69 18 98 03/31/22 04:00 98.5 F 71 18 136/74 99 03/31/22 00:01 83 03/31/22 00:00 83 18 152/78 97 03/30/22 20:00 97.0 F 88 18 160/92 98 Home Medications Medication Instructions Recorded Confirmed Last Taken Type Dulaglutide [Trulicity] 0.75 mg SQ UD 03/30/22 03/30/22 03/26/22 History Empagliflozin [Jardiance] 25 mg PO DAILY 03/30/22 03/30/22 03/27/22 History Ergocalciferol (Vitamin D2) 50,000 unit PO UD 03/30/22 03/30/22 03/24/22 History [Vitamin D2] Metoprolol Tartrate 25 mg 25 mg PO BID 03/30/22 03/30/22 03/27/22 History [Lopressor 25MG Tab] Testosterone 2 pump TOP DAILY 03/30/22 03/30/22 03/27/22 History Current Medications Discontinued Medications Generic Name Dose Route Start Last Admin Trade Name Freq PRN Reason Stop Dose Admin Acetaminophen 650 mg 03/30/22 01:28 Acetaminophen 325 Mg Tablet PO 04/29/22 01:27 Q4H PRN PRN PAIN AND/OR FEVER Albuterol Sulfate 2.5 mg 03/30/22 02:36 Albuterol Sulfate 2.5 Mg/3 Ml [facility] 04/29/22 02:35 Q4H PRN PRN SHORTNESS OF BREATH/WHEEZING Albuterol Sulfate 2 puff 03/30/22 02:37 Albuterol Common Canister Inhaler 04/29/22 02:36 Q4H PRN PRN SHORTNESS OF BREATH/WHEEZING Albuterol Sulfate 2.5 mg 03/30/22 12:15 Albuterol Sulfate 2.5 Mg/3 Ml [facility] 04/29/22 02:35 QIDPRN PRN SHORTNESS OF BREATH/WHEEZING Albuterol Sulfate 2 puff 03/30/22 12:15 Albuterol Common Canister Inhaler 04/29/22 02:36 QIDPRN PRN SHORTNESS OF BREATH/WHEEZING Albuterol/Ipratropium 3 ml 03/30/22 01:28 Ipratropium/Albuterol Sulfate 3 Ml Ampul.[facility] 04/29/22 01:27 Q4HPRN PRN SHORTNESS OF BREATH/WHEEZING Amlodipine Besylate 10 mg 03/30/22 22:00 Amlodipine Besylate 5 Mg Tablet PO 04/29/22 21:59 BIDPRN PRN Diphenhydramine HCl 25 mg 03/30/22 00:49 03/30/22 00:52 Diphenhydramine Hcl 50 Mg/Ml Vial IV 03/30/22 00:50 25 mg STAT ONE Administration Diphenhydramine HCl Confirm 03/30/22 00:52 Diphenhydramine Hcl 50 Mg/Ml Vial Administered 03/30/22 00:53 Dose 50 mg .ROUTE .STK-MED ONE Empagliflozin 25 mg 03/31/22 10:00 03/31/22 10:32 Empagliflozin 10 Mg Tablet PO 04/30/22 09:59 25 mg DAILY LEONIE Administration Ergocalciferol 50,000 unit 03/31/22 10:00 03/31/22 10:32 Ergocalciferol (Vitamin D2) 50,000 Unit Capsule PO 04/30/22 09:59 50,000 unit Q7D LEONIE Administration Gabapentin 600 mg 03/30/22 15:00 03/31/22 10:33 Gabapentin 300 Mg Capsule PO 04/29/22 14:59 600 mg TID LEONIE Administration Sodium Chloride 1,000 mls @ 999 mls/hr 03/29/22 21:36 03/29/22 22:58 Sodium Chloride 0.9% 1000 Ml IV 03/29/22 22:36 Infused .Q1H1M STA Infusion Sodium Chloride Confirm 03/29/22 21:41 Sodium Chloride 0.9% 1000 Ml Administered 03/29/22 21:42 Dose 1,000 mls @ ud .ROUTE .STK-MED ONE Promethazine HCl 25 mg/ Sodium 101 mls @ 200 mls/hr 03/29/22 22:40 03/29/22 22:47 Chloride IV 03/29/22 23:10 200 mls/hr ONCE ONE Administration Sodium Chloride 1,000 mls @ 999 mls/hr 03/29/22 22:42 03/30/22 00:14 Sodium Chloride 0.9% 1000 Ml IV 03/29/22 23:42 Infused .Q1H1M STA Infusion Sodium Chloride Confirm 03/29/22 22:43 Sodium Chloride 0.9% Administered 03/29/22 22:44 Dose 100 mls @ ud .ROUTE .STK-MED ONE Sodium Chloride Confirm 03/29/22 22:43 Sodium Chloride 0.9% 1000 Ml Administered 03/29/22 22:44 Dose 1,000 mls @ ud .ROUTE .STK-MED ONE Remdesivir 200 mg/ Sodium 250 mls @ 125 mls/hr 03/29/22 23:35 03/30/22 00:48 Chloride IV 03/30/22 01:34 Not Given ONCE ONE Sodium Chloride Confirm 03/30/22 00:26 Sodium Chloride 0.9% Administered 03/30/22 00:27 Dose 100 mls @ ud .ROUTE .STK-MED ONE Sodium Chloride Confirm 03/30/22 00:26 Sodium Chloride 0.9% 1000 Ml Administered 03/30/22 00:27 Dose 1,000 mls @ ud .ROUTE .STK-MED ONE Insulin Human Regular 100 unit 100 mls @ 7.412 mls/hr 03/30/22 00:32 03/30/22 22:15 / Sodium Chloride IV 04/29/22 00:31 0 unit/kg/hr .[id number] PRN 0 mls/hr DKA/HYPERGLYCEMIA Titration Protocol 0.1 UNIT/KG/HR Sodium Chloride 1,000 mls @ 150 mls/hr 03/30/22 00:45 03/30/22 00:34 Sodium Chloride 0.9% 1000 Ml IV 04/29/22 00:44 150 mls/hr .Q6H40M LEONIE Administration Sodium Chloride 1,000 mls @ 150 mls/hr 03/30/22 03:30 03/30/22 03:18 Sodium Chloride 0.45% 1000 Ml IV 04/29/22 03:29 150 mls/hr .Q6H40M LEONIE Administration Potassium Chloride/Dextrose/Sod Cl 1,000 mls @ 150 mls/hr 03/30/22 05:30 Dextrose 5% -Nacl 0.9% 1000 Ml + Kcl 20 Meq IV 04/29/22 05:29 .Q6H40M LEONIE Potassium Chloride/Dextrose/Sod Cl Confirm 03/30/22 05:07 D5w/0.45ns W/ 20meq Kcl 1000 Ml Administered 03/30/22 05:08 Dose 1,000 mls @ ud IV .STK-MED ONE Potassium Chloride/Dextrose/Sod Cl 1,000 mls @ 150 mls/hr 03/30/22 05:30 03/30/22 20:06 D5w/0.45ns W/ 20meq Kcl 1000 Ml IV 04/29/22 05:29 150 mls/hr .Q6H40M LEONIE Administration Sodium Chloride Confirm 03/30/22 03:18 Sodium Chloride 0.45% 1000 Ml Administered 03/30/22 03:19 Dose 1,000 mls @ ud IV .STK-MED ONE Sodium Chloride 1,000 mls @ 999 mls/hr 03/30/22 11:32 03/30/22 11:57 Sodium Chloride 0.9% 1000 Ml IV 03/30/22 12:32 999 mls/hr .Q1H1M STA Administration Sodium Chloride Confirm 03/30/22 22:08 Sodium Chloride 0.9% 1000 Ml Administered 03/30/22 22:09 Dose 1,000 mls @ ud .ROUTE .STK-MED ONE Sodium Chloride 1,000 mls @ 150 mls/hr 03/30/22 22:15 03/31/22 05:12 Sodium Chloride 0.9% 1000 Ml IV 04/29/22 22:14 150 mls/hr .Q6H40M LEONIE Administration Insulin Glargine 20 unit 03/30/22 22:00 03/31/22 10:31 Insulin Glargine 1 Unit SQ 04/29/22 21:59 20 unit BID LEONIE Administration Insulin Glargine Confirm 03/30/22 22:07 Insulin Glargine 1 Unit Administered 03/30/22 22:08 Dose 20 unit .ROUTE .STK-MED ONE Insulin Human Regular Confirm 03/30/22 00:26 Insulin Regular, Human 1 Unit Administered 03/30/22 00:27 Dose 100 unit .ROUTE .STK-MED ONE Insulin Human Regular 10 unit 03/30/22 15:00 Insulin Regular, Human 1 Unit SQ 04/29/22 14:59 UD LEONIE Insulin Human Regular 10 unit 03/31/22 08:00 03/31/22 12:43 Insulin Regular, Human 1 Unit SQ 04/29/22 14:59 Not Given TIDWM LEONIE Metoclopramide HCl 10 mg 03/30/22 00:49 03/30/22 00:53 Metoclopramide Hcl 10 Mg/2 Ml Vial IV 03/30/22 00:50 10 mg STAT ONE Administration Metoclopramide HCl Confirm 03/30/22 00:52 Metoclopramide Hcl 10 Mg/2 Ml Vial Administered 03/30/22 00:53 Dose 10 mg .ROUTE .STK-MED ONE Metoprolol Tartrate 25 mg 03/30/22 22:00 03/31/22 10:33 Metoprolol Tartrate 25 Mg Tab PO 04/29/22 21:59 25 mg BID LEONIE Administration Miscellaneous Information 1 each 03/30/22 15:00 Medication Intervention 1 Each Each 04/29/22 14:59 .RN TO CHECK LEONIE Miscellaneous Information 1 each 03/30/22 15:00 Medication Intervention 1 Each Each 04/29/22 14:59 .RN TO CHECK LEONIE Morphine Sulfate 2 mg 03/30/22 01:28 Morphine Sulfate 2 Mg/Ml Inj IV 04/04/22 01:27 Q4H PRN PRN PAIN Ondansetron HCl 4 mg 03/29/22 21:36 03/29/22 21:44 Ondansetron Hcl 4 Mg/2 Ml Vial IV 03/29/22 21:37 4 mg STAT ONE Administration Ondansetron HCl Confirm 03/29/22 21:41 Ondansetron Hcl 4 Mg/2 Ml Vial Administered 03/29/22 21:42 Dose 4 mg .ROUTE .STK-MED ONE Ondansetron HCl 4 mg 03/30/22 01:28 Ondansetron Hcl 4 Mg/2 Ml Vial IV 04/29/22 01:27 Q6H PRN PRN NAUSEA/VOMITING Pantoprazole Sodium 40 mg 03/29/22 21:36 03/29/22 21:44 Pantoprazole 40 Mg Vial IV 03/29/22 21:37 40 mg STAT ONE Administration Pantoprazole Sodium Confirm 03/29/22 21:41 Pantoprazole 40 Mg Vial Administered 03/29/22 21:42 Dose 40 mg IV .STK-MED ONE Pantoprazole Sodium 40 mg 03/30/22 10:00 03/30/22 11:34 Pantoprazole 40 Mg Vial IV 04/29/22 09:59 40 mg Q24H10 LEONIE Administration Pantoprazole Sodium 40 mg 03/31/22 10:00 03/31/22 10:49 Protonix (Pantoprazole) 40 Mg Tablet PO 04/30/22 09:59 40 mg DAILY LEONIE Administration Potassium Chloride 40 meq 03/31/22 12:03 03/31/22 12:14 Potassium Chloride Tab 10 Meq Tab PO 03/31/22 12:04 40 meq STAT ONE Administration Promethazine HCl Confirm 03/29/22 22:43 Promethazine Hcl 25 Mg/Ml Vial Administered 03/29/22 22:44 Dose 25 mg .ROUTE .STK-MED ONE Intake & Output (Last 24 hours) 03/29/22 03/30/22 03/31/22 04/01/22 11:59 11:59 11:59 11:59 Intake Total 754 2931 Output Total 2400 4000 Balance -1646 -1069 Weight 75.3 kg Microbiology Results (Last 24 hours) 03/29/22 22:35 Blood Blood Culture Gram Stain - Pending 03/29/22 22:35 Blood Blood Culture - Preliminary NO GROWTH TO DATE 03/29/22 22:30 Blood Blood Culture Gram Stain - Pending 03/29/22 22:30 Blood Blood Culture - Preliminary NO GROWTH TO DATE Laboratory Results (Last 24 hours) 03/31/22 03/31/22 03/31/22 11:57 07:31 05:45 WBC RBC Hgb Hct MCV MCH MCHC RDW Plt Count MPV Gran % Immature Gran % (Auto) Nucleat RBC Rel Count Eos # (Auto) Immature Gran # (Auto) Absolute Lymphs (auto) Absolute Monos (auto) Absolute Nucleated RBC Lymphocytes % Monocytes % Eosinophils % Basophils % Absolute Granulocytes Basophils # Sodium 142 Potassium 3.2 L Chloride 112 H Carbon Dioxide 20 L Anion Gap 13.5 BUN 16 Creatinine 0.85 Estimated GFR > 60.0 Glucose 107 H POC Glucometer 89 83 Calcium 8.4 Total Bilirubin Direct Bilirubin AST ALT Alkaline Phosphatase Serum Total Protein Albumin 03/31/22 03/31/22 03/30/22 05:45 01:53 22:04 WBC 12.4 H RBC 4.36 Hgb 13.4 Hct 40.6 L MCV 93.1 MCH 30.7 MCHC 33.0 RDW 13.0 Plt Count 240 MPV 9.6 Gran % 77.3 H Immature Gran % (Auto) 0.6 H Nucleat RBC Rel Count 0.0 Eos # (Auto) 0 Immature Gran # (Auto) 0.07 H Absolute Lymphs (auto) 1.68 Absolute Monos (auto) 1.03 Absolute Nucleated RBC 0.00 Lymphocytes % 13.5 L Monocytes % 8.3 Eosinophils % 0.0 Basophils % 0.3 Absolute Granulocytes 9.62 H Basophils # 0.04 Sodium Potassium Chloride Carbon Dioxide Anion Gap BUN Creatinine Estimated GFR Glucose POC Glucometer 110 H 139 H Calcium Total Bilirubin Direct Bilirubin AST ALT Alkaline Phosphatase Serum Total Protein Albumin 03/30/22 03/30/22 03/30/22 21:08 20:09 14:10 WBC RBC Hgb Hct MCV MCH MCHC RDW Plt Count MPV Gran % Immature Gran % (Auto) Nucleat RBC Rel Count Eos # (Auto) Immature Gran # (Auto) Absolute Lymphs (auto) Absolute Monos (auto) Absolute Nucleated RBC Lymphocytes % Monocytes % Eosinophils % Basophils % Absolute Granulocytes Basophils # Sodium 143 144 Potassium 3.9 4.0 Chloride 113 H 117 H Carbon Dioxide 20 L 14 L* Anion Gap 14.1 15.3 H BUN 18 23 H Creatinine 1.00 0.98 Estimated GFR > 60.0 > 60.0 Glucose 140 H 165 H POC Glucometer 144 H Calcium 9.1 8.6 Total Bilirubin 0.90 Direct Bilirubin 0.2 AST 19 ALT 27 Alkaline Phosphatase 103 Serum Total Protein 6.7 Albumin 4.1 Orders (Last 24 hours) Category Date Time Status Discharge Routine Discharge 03/31/22 13:00 Ordered BMP Routine Lab 03/31/22 05:45 Completed BMP Stat Lab 03/30/22 20:09 Completed CBC W DIFF Routine Lab 03/31/22 05:45 Completed POCT GLUCOSE Stat Lab 03/30/22 19:05 Completed POCT GLUCOSE Stat Lab 03/30/22 21:08 Completed POCT GLUCOSE Stat Lab 03/30/22 22:04 Completed POCT GLUCOSE Stat Lab 03/31/22 01:53 Completed POCT GLUCOSE Stat Lab 03/31/22 07:31 Completed POCT GLUCOSE Stat Lab 03/31/22 11:57 Completed Amlodipine Besylate 5 mg [Norvasc 5 mg] Med 03/30/22 22:00 Discontinued 10 mg PO BIDPRN PRN Empagliflozin [Jardiance] Med 03/31/22 10:00 Discontinued 25 mg PO DAILY Ergocalciferol (Vitamin D2) [Vitamin D2] Med 03/31/22 10:00 Discontinued 50,000 unit PO Q7D Insulin Glargine [Lantus Insulin] Med 03/30/22 22:07 Discontinued 20 unit .ROUTE .STK-MED ONE Insulin Glargine [Lantus Insulin] Med 03/30/22 22:00 Discontinued 20 unit SQ BID Insulin Regular, Human [Humulin R] Med 03/31/22 08:00 Discontinued 10 unit SQ TIDWM Metoprolol Tartrate 25 mg [Lopressor 25MG Tab] Med 03/30/22 22:00 Discontinued 25 mg PO BID NaCl 0.9% 1000 ml [Sodium Chloride 0.9% 1000 ML] 1,000 Med 03/30/22 22:08 Discontinued ml .ROUTE UD NaCl 0.9% 1000 ml [Sodium Chloride 0.9% 1000 ML] 1,000 Med 03/30/22 22:15 Discontinued ml IV 150 mls/hr PANTOPRAZOLE 40 mg Tablet [Protonix 40MG Tablet] Med 03/31/22 10:00 Discontinued 40 mg PO DAILY Potassium Chloride Tab* [Klor Con] Med 03/31/22 12:03 Discontinued 40 meq PO STAT ONE Patient Care Notes (Last 24 hours) 03/31/22 12:52 Nursing Note by Mica Damon DC instructions reviewed and verbalized understanding Initialized on 03/31/22 12:52 - END OF NOTE 03/31/22 12:01 Nursing Note by Steph Henson ON PT WITH DR. VENTURA AT THIS TIME. REVIEWED POTASSIUM OF 3.2 TODAY. RECEIVED THE FOLLOWING ORDERS: GIVE POTASSIUM 40MEQ PO X 1 THEN DISCHARGE TO HOME AFTER LUNCH. Initialized on 03/31/22 12:01 - END OF NOTE 03/30/22 22:17 Nursing Note by Jennifer Mims This nurse contacted Dr. Barajas and notified him of patient's CO2 20, anion gap 14.1, blood glucose 139. Order received to discontinue insulin drip, change IV fluids to NS, and resume home insulins. New orders entered into EMR, and POC explained to patient. Initialized on 03/30/22 22:17 - END OF NOTE 03/30/22 21:31 Nursing Note by Jennifer Mims This nurse attempted to contact Dr. Barajas to notify him that patient's DKA has corrected. No answer at this time. Voicemail left for him to return call. Initialized on 03/30/22 21:31 - END OF NOTE Patient is feeling much better. Eating well Code(s): E11.10 - TYPE 2 DIABETES MELLITUS WITH KETOACIDOSIS WITHOUT COMA (2) Acute gastroenteritis Status: Acute Code(s): K52.9 - NONINFECTIVE GASTROENTERITIS AND COLITIS, UNSPECIFIED (3) COVID-19 Status: Acute Code(s): U07.1 - COVID-19 Hospital Summary - Hospital Course Hospital Course: Chief Complaint Diagnosis DKA Allergies Allergy/AdvReac Type Severity Reaction Status Date / Time lisinopril Allergy Mild Anaphylactic Verified 03/30/22 01:35 Reaction naproxen AdvReac Mild Rash Verified 03/30/22 01:35 Vital Signs (Last 24 hours) Temp Pulse Resp BP Pulse Ox 03/31/22 12:00 97.9 F 67 16 146/87 98 03/31/22 08:00 70 03/31/22 07:56 98.7 F 70 12 130/59 95 03/31/22 07:14 69 18 98 03/31/22 04:00 98.5 F 71 18 136/74 99 03/31/22 00:01 83 03/31/22 00:00 83 18 152/78 97 03/30/22 20:00 97.0 F 88 18 160/92 98 Home Medications Medication Instructions Recorded Confirmed Last Taken Type Dulaglutide [Trulicity] 0.75 mg SQ UD 03/30/22 03/30/22 03/26/22 History Empagliflozin [Jardiance] 25 mg PO DAILY 03/30/22 03/30/22 03/27/22 History Ergocalciferol (Vitamin D2) 50,000 unit PO UD 03/30/22 03/30/22 03/24/22 History [Vitamin D2] Metoprolol Tartrate 25 mg 25 mg PO BID 03/30/22 03/30/22 03/27/22 History [Lopressor 25MG Tab] Testosterone 2 pump TOP DAILY 03/30/22 03/30/22 03/27/22 History Current Medications Discontinued Medications Generic Name Dose Route Start Last Admin Trade Name Freq PRN Reason Stop Dose Admin Acetaminophen 650 mg 03/30/22 01:28 Acetaminophen 325 Mg Tablet PO 04/29/22 01:27 Q4H PRN PRN PAIN AND/OR FEVER Albuterol Sulfate 2.5 mg 03/30/22 02:36 Albuterol Sulfate 2.5 Mg/3 Ml [facility] 04/29/22 02:35 Q4H PRN PRN SHORTNESS OF BREATH/WHEEZING Albuterol Sulfate 2 puff 03/30/22 02:37 Albuterol Common Canister Inhaler 04/29/22 02:36 Q4H PRN PRN SHORTNESS OF BREATH/WHEEZING Albuterol Sulfate 2.5 mg 03/30/22 12:15 Albuterol Sulfate 2.5 Mg/3 Ml [facility] 04/29/22 02:35 QIDPRN PRN SHORTNESS OF BREATH/WHEEZING Albuterol Sulfate 2 puff 03/30/22 12:15 Albuterol Common Canister Inhaler 04/29/22 02:36 QIDPRN PRN SHORTNESS OF BREATH/WHEEZING Albuterol/Ipratropium 3 ml 03/30/22 01:28 Ipratropium/Albuterol Sulfate 3 Ml Ampul.Neb 04/29/22 01:27 Q4HPRN PRN SHORTNESS OF BREATH/WHEEZING Amlodipine Besylate 10 mg 03/30/22 22:00 Amlodipine Besylate 5 Mg Tablet PO 04/29/22 21:59 BIDPRN PRN Diphenhydramine HCl 25 mg 03/30/22 00:49 03/30/22 00:52 Diphenhydramine Hcl 50 Mg/Ml Vial IV 03/30/22 00:50 25 mg STAT ONE Administration Diphenhydramine HCl Confirm 03/30/22 00:52 Diphenhydramine Hcl 50 Mg/Ml Vial Administered 03/30/22 00:53 Dose 50 mg .ROUTE .STK-MED ONE Empagliflozin 25 mg 03/31/22 10:00 03/31/22 10:32 Empagliflozin 10 Mg Tablet PO 04/30/22 09:59 25 mg DAILY LEONIE Administration Ergocalciferol 50,000 unit 03/31/22 10:00 03/31/22 10:32 Ergocalciferol (Vitamin D2) 50,000 Unit Capsule PO 04/30/22 09:59 50,000 unit Q7D LEONIE Administration Gabapentin 600 mg 03/30/22 15:00 03/31/22 10:33 Gabapentin 300 Mg Capsule PO 04/29/22 14:59 600 mg TID LEONIE Administration Sodium Chloride 1,000 mls @ 999 mls/hr 03/29/22 21:36 03/29/22 22:58 Sodium Chloride 0.9% 1000 Ml IV 03/29/22 22:36 Infused .Q1H1M STA Infusion Sodium Chloride Confirm 03/29/22 21:41 Sodium Chloride 0.9% 1000 Ml Administered 03/29/22 21:42 Dose 1,000 mls @ ud .ROUTE .STK-MED ONE Promethazine HCl 25 mg/ Sodium 101 mls @ 200 mls/hr 03/29/22 22:40 03/29/22 22:47 Chloride IV 03/29/22 23:10 200 mls/hr ONCE ONE Administration Sodium Chloride 1,000 mls @ 999 mls/hr 03/29/22 22:42 03/30/22 00:14 Sodium Chloride 0.9% 1000 Ml IV 03/29/22 23:42 Infused .Q1H1M STA Infusion Sodium Chloride Confirm 03/29/22 22:43 Sodium Chloride 0.9% Administered 03/29/22 22:44 Dose 100 mls @ ud .ROUTE .STK-MED ONE Sodium Chloride Confirm 03/29/22 22:43 Sodium Chloride 0.9% 1000 Ml Administered 03/29/22 22:44 Dose 1,000 mls @ ud .ROUTE .STK-MED ONE Remdesivir 200 mg/ Sodium 250 mls @ 125 mls/hr 03/29/22 23:35 03/30/22 00:48 Chloride IV 03/30/22 01:34 Not Given ONCE ONE Sodium Chloride Confirm 03/30/22 00:26 Sodium Chloride 0.9% Administered 03/30/22 00:27 Dose 100 mls @ ud .ROUTE .STK-MED ONE Sodium Chloride Confirm 03/30/22 00:26 Sodium Chloride 0.9% 1000 Ml Administered 03/30/22 00:27 Dose 1,000 mls @ ud .ROUTE .STK-MED ONE Insulin Human Regular 100 unit 100 mls @ 7.412 mls/hr 03/30/22 00:32 03/30/22 22:15 / Sodium Chloride IV 04/29/22 00:31 0 unit/kg/hr .[id number] PRN 0 mls/hr DKA/HYPERGLYCEMIA Titration Protocol 0.1 UNIT/KG/HR Sodium Chloride 1,000 mls @ 150 mls/hr 03/30/22 00:45 03/30/22 00:34 Sodium Chloride 0.9% 1000 Ml IV 04/29/22 00:44 150 mls/hr .Q6H40M LEONIE Administration Sodium Chloride 1,000 mls @ 150 mls/hr 03/30/22 03:30 03/30/22 03:18 Sodium Chloride 0.45% 1000 Ml IV 04/29/22 03:29 150 mls/hr .Q6H40M LEONIE Administration Potassium Chloride/Dextrose/Sod Cl 1,000 mls @ 150 mls/hr 03/30/22 05:30 Dextrose 5% -Nacl 0.9% 1000 Ml + Kcl 20 Meq IV 04/29/22 05:29 .Q6H40M LEONIE Potassium Chloride/Dextrose/Sod Cl Confirm 03/30/22 05:07 D5w/0.45ns W/ 20meq Kcl 1000 Ml Administered 03/30/22 05:08 Dose 1,000 mls @ ud IV .STK-MED ONE Potassium Chloride/Dextrose/Sod Cl 1,000 mls @ 150 mls/hr 03/30/22 05:30 03/30/22 20:06 D5w/0.45ns W/ 20meq Kcl 1000 Ml IV 04/29/22 05:29 150 mls/hr .Q6H40M LEONIE Administration Sodium Chloride Confirm 03/30/22 03:18 Sodium Chloride 0.45% 1000 Ml Administered 03/30/22 03:19 Dose 1,000 mls @ ud IV .STK-MED ONE Sodium Chloride 1,000 mls @ 999 mls/hr 03/30/22 11:32 03/30/22 11:57 Sodium Chloride 0.9% 1000 Ml IV 03/30/22 12:32 999 mls/hr .Q1H1M STA Administration Sodium Chloride Confirm 03/30/22 22:08 Sodium Chloride 0.9% 1000 Ml Administered 03/30/22 22:09 Dose 1,000 mls @ ud .ROUTE .STK-MED ONE Sodium Chloride 1,000 mls @ 150 mls/hr 03/30/22 22:15 03/31/22 05:12 Sodium Chloride 0.9% 1000 Ml IV 04/29/22 22:14 150 mls/hr .Q6H40M LEONIE Administration Insulin Glargine 20 unit 03/30/22 22:00 03/31/22 10:31 Insulin Glargine 1 Unit SQ 04/29/22 21:59 20 unit BID LEONIE Administration Insulin Glargine Confirm 03/30/22 22:07 Insulin Glargine 1 Unit Administered 03/30/22 22:08 Dose 20 unit .ROUTE .STK-MED ONE Insulin Human Regular Confirm 03/30/22 00:26 Insulin Regular, Human 1 Unit Administered 03/30/22 00:27 Dose 100 unit .ROUTE .STK-MED ONE Insulin Human Regular 10 unit 03/30/22 15:00 Insulin Regular, Human 1 Unit SQ 04/29/22 14:59 UD [facility] Insulin Human Regular 10 unit 03/31/22 08:00 03/31/22 12:43 Insulin Regular, Human 1 Unit SQ 04/29/22 14:59 Not Given TIDWM LEONIE Metoclopramide HCl 10 mg 03/30/22 00:49 03/30/22 00:53 Metoclopramide Hcl 10 Mg/2 Ml Vial IV 03/30/22 00:50 10 mg STAT ONE Administration Metoclopramide HCl Confirm 03/30/22 00:52 Metoclopramide Hcl 10 Mg/2 Ml Vial Administered 03/30/22 00:53 Dose 10 mg .ROUTE .STK-MED ONE Metoprolol Tartrate 25 mg 03/30/22 22:00 03/31/22 10:33 Metoprolol Tartrate 25 Mg Tab PO 04/29/22 21:59 25 mg BID LEONIE Administration Miscellaneous Information 1 each 03/30/22 15:00 Medication Intervention 1 Each Each MC 04/29/22 14:59 .RN TO CHECK [facility] Miscellaneous Information 1 each 03/30/22 15:00 Medication Intervention 1 Each Each MC 04/29/22 14:59 .RN TO CHECK LEONIE Morphine Sulfate 2 mg 03/30/22 01:28 Morphine Sulfate 2 Mg/Ml Inj IV 04/04/22 01:27 Q4H PRN PRN PAIN Ondansetron HCl 4 mg 03/29/22 21:36 03/29/22 21:44 Ondansetron Hcl 4 Mg/2 Ml Vial IV 03/29/22 21:37 4 mg STAT ONE Administration Ondansetron HCl Confirm 03/29/22 21:41 Ondansetron Hcl 4 Mg/2 Ml Vial Administered 03/29/22 21:42 Dose 4 mg .ROUTE .STK-MED ONE Ondansetron HCl 4 mg 03/30/22 01:28 Ondansetron Hcl 4 Mg/2 Ml Vial IV 04/29/22 01:27 Q6H PRN PRN NAUSEA/VOMITING Pantoprazole Sodium 40 mg 03/29/22 21:36 03/29/22 21:44 Pantoprazole 40 Mg Vial IV 03/29/22 21:37 40 mg STAT ONE Administration Pantoprazole Sodium Confirm 03/29/22 21:41 Pantoprazole 40 Mg Vial Administered 03/29/22 21:42 Dose 40 mg IV .STK-MED ONE Pantoprazole Sodium 40 mg 03/30/22 10:00 03/30/22 11:34 Pantoprazole 40 Mg Vial IV 04/29/22 09:59 40 mg Q24H10 LEONIE Administration Pantoprazole Sodium 40 mg 03/31/22 10:00 03/31/22 10:49 Protonix (Pantoprazole) 40 Mg Tablet PO 04/30/22 09:59 40 mg DAILY LEONIE Administration Potassium Chloride 40 meq 03/31/22 12:03 03/31/22 12:14 Potassium Chloride Tab 10 Meq Tab PO 03/31/22 12:04 40 meq STAT ONE Administration Promethazine HCl Confirm 03/29/22 22:43 Promethazine Hcl 25 Mg/Ml Vial Administered 03/29/22 22:44 Dose 25 mg .ROUTE .STK-MED ONE Intake & Output (Last 24 hours) 03/29/22 03/30/22 03/31/22 04/01/22 11:59 11:59 11:59 11:59 Intake Total 754 2931 Output Total 2400 4000 Balance -1646 -1069 Weight 75.3 kg Microbiology Results (Last 24 hours) 03/29/22 22:35 Blood Blood Culture Gram Stain - Pending 03/29/22 22:35 Blood Blood Culture - Preliminary NO GROWTH TO DATE 03/29/22 22:30 Blood Blood Culture Gram Stain - Pending 03/29/22 22:30 Blood Blood Culture - Preliminary NO GROWTH TO DATE Laboratory Results (Last 24 hours) 03/31/22 03/31/22 03/31/22 11:57 07:31 05:45 WBC RBC Hgb Hct MCV MCH MCHC RDW Plt Count MPV Gran % Immature Gran % (Auto) Nucleat RBC Rel Count Eos # (Auto) Immature Gran # (Auto) Absolute Lymphs (auto) Absolute Monos (auto) Absolute Nucleated RBC Lymphocytes % Monocytes % Eosinophils % Basophils % Absolute Granulocytes Basophils # Sodium 142 Potassium 3.2 L Chloride 112 H Carbon Dioxide 20 L Anion Gap 13.5 BUN 16 Creatinine 0.85 Estimated GFR > 60.0 Glucose 107 H POC Glucometer 89 83 Calcium 8.4 Total Bilirubin Direct Bilirubin AST ALT Alkaline Phosphatase Serum Total Protein Albumin 03/31/22 03/31/2222 05:45 01:53 22:04 WBC 12.4 H RBC 4.36 Hgb 13.4 Hct 40.6 L MCV 93.1 MCH 30.7 MCHC 33.0 RDW 13.0 Plt Count 240 MPV 9.6 Gran % 77.3 H Immature Gran % (Auto) 0.6 H Nucleat RBC Rel Count 0.0 Eos # (Auto) 0 Immature Gran # (Auto) 0.07 H Absolute Lymphs (auto) 1.68 Absolute Monos (auto) 1.03 Absolute Nucleated RBC 0.00 Lymphocytes % 13.5 L Monocytes % 8.3 Eosinophils % 0.0 Basophils % 0.3 Absolute Granulocytes 9.62 H Basophils # 0.04 Sodium Potassium Chloride Carbon Dioxide Anion Gap BUN Creatinine Estimated GFR Glucose POC Glucometer 110 H 139 H Calcium Total Bilirubin Direct Bilirubin AST ALT Alkaline Phosphatase Serum Total Protein Albumin 03/30/22 03/30/22 03/30/22 21:08 20:09 14:10 WBC RBC Hgb Hct MCV MCH MCHC RDW Plt Count MPV Gran % Immature Gran % (Auto) Nucleat RBC Rel Count Eos # (Auto) Immature Gran # (Auto) Absolute Lymphs (auto) Absolute Monos (auto) Absolute Nucleated RBC Lymphocytes % Monocytes % Eosinophils % Basophils % Absolute Granulocytes Basophils # Sodium 143 144 Potassium 3.9 4.0 Chloride 113 H 117 H Carbon Dioxide 20 L 14 L* Anion Gap 14.1 15.3 H BUN 18 23 H Creatinine 1.00 0.98 Estimated GFR > 60.0 > 60.0 Glucose 140 H 165 H POC Glucometer 144 H Calcium 9.1 8.6 Total Bilirubin 0.90 Direct Bilirubin 0.2 AST 19 ALT 27 Alkaline Phosphatase 103 Serum Total Protein 6.7 Albumin 4.1 Orders (Last 24 hours) Category Date Time Status Discharge Routine Discharge 03/31/22 13:00 Ordered BMP Routine Lab 03/31/22 05:45 Completed BMP Stat Lab 03/30/22 20:09 Completed CBC W DIFF Routine Lab 03/31/22 05:45 Completed POCT GLUCOSE Stat Lab 03/30/22 19:05 Completed POCT GLUCOSE Stat Lab 03/30/22 21:08 Completed POCT GLUCOSE Stat Lab 03/30/22 22:04 Completed POCT GLUCOSE Stat Lab 03/31/22 01:53 Completed POCT GLUCOSE Stat Lab 03/31/22 07:31 Completed POCT GLUCOSE Stat Lab 03/31/22 11:57 Completed Amlodipine Besylate 5 mg [Norvasc 5 mg] Med 03/30/22 22:00 Discontinued 10 mg PO BIDPRN PRN Empagliflozin [Jardiance] Med 03/31/22 10:00 Discontinued 25 mg PO DAILY Ergocalciferol (Vitamin D2) [Vitamin D2] Med 03/31/22 10:00 Discontinued 50,000 unit PO Q7D Insulin Glargine [Lantus Insulin] Med 03/30/22 22:07 Discontinued 20 unit .ROUTE .STK-MED ONE Insulin Glargine [Lantus Insulin] Med 03/30/22 22:00 Discontinued 20 unit SQ BID Insulin Regular, Human [Humulin R] Med 03/31/22 08:00 Discontinued 10 unit SQ TIDWM Metoprolol Tartrate 25 mg [Lopressor 25MG Tab] Med 03/30/22 22:00 Discontinued 25 mg PO BID NaCl 0.9% 1000 ml [Sodium Chloride 0.9% 1000 ML] 1,000 Med 03/30/22 22:08 Discontinued ml .ROUTE UD NaCl 0.9% 1000 ml [Sodium Chloride 0.9% 1000 ML] 1,000 Med 03/30/22 22:15 Discontinued ml IV 150 mls/hr PANTOPRAZOLE 40 mg Tablet [Protonix 40MG Tablet] Med 03/31/22 10:00 Discontinued 40 mg PO DAILY Potassium Chloride Tab* [Klor Con] Med 03/31/22 12:03 Discontinued 40 meq PO STAT ONE Patient Care Notes (Last 24 hours) 03/31/22 12:52 Nursing Note by Mica Damon DC instructions reviewed and verbalized understanding Initialized on 03/31/22 12:52 - END OF NOTE 03/31/22 12:01 Nursing Note by Steph Henson ON PT WITH DR. VENTURA AT THIS TIME. REVIEWED POTASSIUM OF 3.2 TODAY. RECEIVED THE FOLLOWING ORDERS: GIVE POTASSIUM 40MEQ PO X 1 THEN DISCHARGE TO HOME AFTER LUNCH. Initialized on 03/31/22 12:01 - END OF NOTE 03/30/22 22:17 Nursing Note by Jennifer Mims This nurse contacted Dr. Barajas and notified him of patient's CO2 20, anion gap 14.1, blood glucose 139. Order received to discontinue insulin drip, change IV fluids to NS, and resume home insulins. New orders entered into EMR, and POC explained to patient. Initialized on 03/30/22 22:17 - END OF NOTE 03/30/22 21:31 Nursing Note by Jennifer Mims This nurse attempted to contact Dr. Barajas to notify him that patient's DKA has corrected. No answer at this time. Voicemail left for him to return call. Initialized on 03/30/22 21:31 - END OF NOTE - Vitals & Intake/Output Vital Signs: Vital Signs Temperature 97.9 F 03/31/22 12:00 Pulse Rate 67 03/31/22 12:00 Respiratory Rate 16 03/31/22 12:00 Blood Pressure 146/87 03/31/22 12:00 O2 Sat by Pulse Oximetry 98 03/31/22 12:00 Intake & Output: Intake & Output 03/29/22 03/30/22 03/31/22 04/01/22 11:59 11:59 11:59 11:59 Intake Total 754 2931 Output Total 2400 4000 Balance -1646 -1069 Weight 75.3 kg - Lab Result Diagrams: 03/31/22 05:45 03/31/22 05:45 Lab Results-Last 24 Hrs: Lab Results-Last 24 Hours 03/30/22 03/30/22 03/30/22 Range/Units 14:10 20:09 21:08 WBC (4.0-10.5) x10^3/uL RBC (4.1-5.6) x10^6/uL Hgb (12.5-18.0) g/dL Hct (42-50) % MCV (78-100) fL MCH (26-32) pg MCHC (32-36) g/dL RDW (11.5-14.0) % Plt Count (150-450) x10^3/uL MPV (7.5-11.0) fL Gran % (36.0-66.0) % Immature Gran % (Auto) (0.00-0.4) % Nucleat RBC Rel Count (0.00-0.1) % Eos # (Auto) (0-0.5) x10^3/uL Immature Gran # (Auto) (0.00-0.03) x10^3u/L Absolute Lymphs (auto) (1.0-4.6) x10^3/uL Absolute Monos (auto) (0.0-1.3) x10^3/uL Absolute Nucleated RBC (0.00-0.01) x10^3u/L Lymphocytes % (24.0-44.0) % Monocytes % (0.0-12.0) % Eosinophils % (0.00-5.0) % Basophils % (0.0-0.4) % Absolute Granulocytes (1.4-6.9) x10^3/uL Basophils # (0-0.4) x10^3/uL Sodium 144 143 (137-145) mmol/L Potassium 4.0 3.9 (3.5-5.1) mmol/L Chloride 117 H 113 H (98-107) mmol/L Carbon Dioxide 14 L* 20 L (22-30) mmol/L Anion Gap 15.3 H 14.1 (5-15) MEQ/L BUN 23 H 18 (9-20) mg/dL Creatinine 0.98 1.00 (0.66-1.25) mg/dL Estimated GFR > 60.0 > 60.0 ML/MIN Glucose 165 H 140 H (74-106) mg/dL POC Glucometer 144 H (74 to 106) mg/dL Calcium 8.6 9.1 (8.4-10.2) mg/dL Total Bilirubin 0.90 (0.2-1.3) mg/dL Direct Bilirubin 0.2 (0.0-0.4) mg/dL AST 19 (17-59) U/L ALT 27 (0-50) U/L Alkaline Phosphatase 103 (38-126) U/L Serum Total Protein 6.7 (6.3-8.2) g/dL Albumin 4.1 (3.5-5.0) g/dL 03/30/22 03/31/22 03/31/22 Range/Units 22:04 01:53 05:45 WBC 12.4 H (4.0-10.5) x10^3/uL RBC 4.36 (4.1-5.6) x10^6/uL Hgb 13.4 (12.5-18.0) g/dL Hct 40.6 L (42-50) % MCV 93.1 (78-100) fL MCH 30.7 (26-32) pg MCHC 33.0 (32-36) g/dL RDW 13.0 (11.5-14.0) % Plt Count 240 (150-450) x10^3/uL MPV 9.6 (7.5-11.0) fL Gran % 77.3 H (36.0-66.0) % Immature Gran % (Auto) 0.6 H (0.00-0.4) % Nucleat RBC Rel Count 0.0 (0.00-0.1) % Eos # (Auto) 0 (0-0.5) x10^3/uL Immature Gran # (Auto) 0.07 H (0.00-0.03) x10^3u/L Absolute Lymphs (auto) 1.68 (1.0-4.6) x10^3/uL Absolute Monos (auto) 1.03 (0.0-1.3) x10^3/uL Absolute Nucleated RBC 0.00 (0.00-0.01) x10^3u/L Lymphocytes % 13.5 L (24.0-44.0) % Monocytes % 8.3 (0.0-12.0) % Eosinophils % 0.0 (0.00-5.0) % Basophils % 0.3 (0.0-0.4) % Absolute Granulocytes 9.62 H (1.4-6.9) x10^3/uL Basophils # 0.04 (0-0.4) x10^3/uL Sodium (137-145) mmol/L Potassium (3.5-5.1) mmol/L Chloride (98-107) mmol/L Carbon Dioxide (22-30) mmol/L Anion Gap (5-15) MEQ/L BUN (9-20) mg/dL Creatinine (0.66-1.25) mg/dL Estimated GFR ML/MIN Glucose (74-106) mg/dL POC Glucometer 139 H 110 H (74 to 106) mg/dL Calcium (8.4-10.2) mg/dL Total Bilirubin (0.2-1.3) mg/dL Direct Bilirubin (0.0-0.4) mg/dL AST (17-59) U/L ALT (0-50) U/L Alkaline Phosphatase (38-126) U/L Serum Total Protein (6.3-8.2) g/dL Albumin (3.5-5.0) g/dL 03/31/22 03/31/22 03/31/22 Range/Units 05:45 07:31 11:57 WBC (4.0-10.5) x10^3/uL RBC (4.1-5.6) x10^6/uL Hgb (12.5-18.0) g/dL Hct (42-50) % MCV (78-100) fL MCH (26-32) pg MCHC (32-36) g/dL RDW (11.5-14.0) % Plt Count (150-450) x10^3/uL MPV (7.5-11.0) fL Gran % (36.0-66.0) % Immature Gran % (Auto) (0.00-0.4) % Nucleat RBC Rel Count (0.00-0.1) % Eos # (Auto) (0-0.5) x10^3/uL Immature Gran # (Auto) (0.00-0.03) x10^3u/L Absolute Lymphs (auto) (1.0-4.6) x10^3/uL Absolute Monos (auto) (0.0-1.3) x10^3/uL Absolute Nucleated RBC (0.00-0.01) x10^3u/L Lymphocytes % (24.0-44.0) % Monocytes % (0.0-12.0) % Eosinophils % (0.00-5.0) % Basophils % (0.0-0.4) % Absolute Granulocytes (1.4-6.9) x10^3/uL Basophils # (0-0.4) x10^3/uL Sodium 142 (137-145) mmol/L Potassium 3.2 L (3.5-5.1) mmol/L Chloride 112 H (98-107) mmol/L Carbon Dioxide 20 L (22-30) mmol/L Anion Gap 13.5 (5-15) MEQ/L BUN 16 (9-20) mg/dL Creatinine 0.85 (0.66-1.25) mg/dL Estimated GFR > 60.0 ML/MIN Glucose 107 H (74-106) mg/dL POC Glucometer 83 89 (74 to 106) mg/dL Calcium 8.4 (8.4-10.2) mg/dL Total Bilirubin (0.2-1.3) mg/dL Direct Bilirubin (0.0-0.4) mg/dL AST (17-59) U/L ALT (0-50) U/L Alkaline Phosphatase (38-126) U/L Serum Total Protein (6.3-8.2) g/dL Albumin (3.5-5.0) g/dL Micro Results-Entire Visit: Microbiology 03/29/22 22:35 Blood Culture - Preliminary Blood NO GROWTH TO DATE 03/29/22 22:30 Blood Culture - Preliminary Blood NO GROWTH TO DATE Accuchecks Date 03/31/22 Date 03/31/22 Date 03/31/22 Date 03/30/22 Date 03/30/22 Date 03/30/22 Time 12:03 Time 05:30 Time 01:55 Time 22:00 Time 21:00 Time 20:00 - Radiology Exams Ordered Rad Exams-Entire Visit: Radiology Procedures Category Date Time Status ABDOMEN AND PELVIS W/0 CONTRAS [CT] Stat Exams 03/29/22 21:36 Completed - Procedures and Test Procedures and Tests throughout Hospitalization: Therapy Orders & Screens 03/30/22 02:37 Respiratory Therapy Assessment DAILY Comment: Diagnosis: DKA - Discharge Discharge Date: 03/31/22 Disposition: Home, Self-Care Condition: Stable Prescriptions: Continue Albuterol Sulfate [Proair Hfa] 2 puffs IH QIDPRN PRN PRN Reason: sob Albuterol 2.5 mg/3 ml Neb [Proventil 2.5 mg/3 ml Neb] 3 ml IH QID PRN PRN PRN Reason: sob Amlodipine Besylate 5 mg [Norvasc 5 mg] 10 mg PO BID Insulin Glargine,Hum.rec.anlog [Basaglar Kwikpen U-100] 20 unit SQ BID Insulin Regular, Human [Novolin R Flexpen] 10 units SQ UD Gabapentin [Neurontin ] 600 mg PO TID Sildenafil Citrate [Viagra] 100 mg PO DAILY PRN PRN PRN Reason: erectile dysfuction Esomeprazole Magnesium [Nexium] 40 mg PO BID Metoprolol Tartrate 25 mg [Lopressor 25MG Tab] 25 mg PO BID Ergocalciferol (Vitamin D2) [Vitamin D2] 50,000 unit PO UD Testosterone 2 pump TOP DAILY Empagliflozin [Jardiance] 25 mg PO DAILY Dulaglutide [Trulicity] 0.75 mg SQ UD Instructions: Diabetic Ketoacidosis (DC) Follow up with: HARRISON VENTURA MD [Primary Care Provider] - 04/08/22 11:00 am Forms: Discharge Instructions
== END 2022-03-31 13:15 | disposition home or self-care (01) ==
LOC: ED 21:27 → ICU 03-30 01:26
PROVIDERS: ADMIT Family Medicine; ATTEND General Practice
DX: E11.10 Type 2 diabetes mellitus with ketoacidosis without coma (principal); K52.9 Noninfective gastroenteritis and colitis, unspecified; U07.1 COVID-19; I10 Essential (primary) hypertension; J44.9 Chronic obstructive pulmonary disease, unspecified; Z79.899 Other long term (current) drug therapy; Z20.828 Contact with and (suspected) exposure to other viral communicable diseases; Z85.118 Personal history of other malignant neoplasm of bronchus and lung
CPT/HCPCS: 0241U; 36000; 36415; 74176; 80048; 80053; 80076; 81015; 82805; 82947; 83605; 83690; 83735; 84484; 85025; 85027; 87040; 93005; 93268; 96360; 96361; 96365; 96367; 96374; 96375; 99285; G0378; J1200; J1815; J2405; J2550; A9270-GY

== ENCOUNTER 2022-07-28 14:58 | Inpatient (IN) | payer BC ==
[2022-07-28] MEDS ORDERED: Zofran 4 MG/2 ML VIAL IV ONE (15:26)
[2022-07-28 15:42] LABS: Absolute Neutrophil Ct (ANC) 14.24 x10^3/uL (1.4-6.9); Basophil (Absolute #) 0.04 x10^3/uL (0-0.4); Eosinophil (Absolute #) 0 x10^3/uL (0-0.5); Hematocrit 56.5 % (42-50); Hemoglobin 17.9 g/dL (12.5-18.0); Lymphocyte (Absolute #) 1.16 x10^3/uL (1.0-4.6); Lymphocytes % 7.2 % (24.0-44.0); Mean Cell Volume 93.1 fL (78-100); Mean Corpuscular Hemoglobin 29.5 pg (26-32); Mean Corpuscular Hgb Concent. 31.7 g/dL (32-36); Mean Platelet Volume 9.8 fL (7.5-11.0); Monocyte (Absolute #) 0.55 x10^3/uL (0.0-1.3); Monocytes % 3.4 % (0.0-12.0); Neutrophil % 88.6 % (36.0-66.0); Platelet Count 316 x10^3/uL (150-450); Red Blood Count 6.07 x10^6/uL (4.1-5.6); Red Cell Distribution Width 13.2 % (11.5-14.0); White Blood Count 16.1 x10^3/uL (4.0-10.5)
[2022-07-28] MEDS ORDERED: Zofran 4 MG/2 ML VIAL ONE (15:51)
[2022-07-28 15:57] LABS: ALBUMIN 5.5 g/dL (3.5-5.0); ANION GAP 40.6 MEQ/L (5-15); BILIRUBIN,TOTAL 0.8 mg/dL (0.2-1.3); Calcium 10.6 mg/dL (8.4-10.2); Creatinine 1 1.9 mg/dL (0.66-1.25); D-DIMER QUANTITATIVE 0.38 mg/L (0.0-0.50); EST GLOMERULAR FILTRATION RATE 38.9 ML/MIN; INR 1.03 (0.8-3.0); PROTIME 10.9 SECONDS (9.4-12.5); PTT 25.6 SECONDS (25.1-36.5); Potassium 4.1 mmol/L (3.5-5.1); Total Protein 9.5 g/dL (6.3-8.2)
--- NOTE | 2022-07-28 16:12 | XRAY ---
Indication: Dyspnea. Covid 19. Comparison: November 28, 2020 Portable chest better inflated and is now clear again with incidental right midlung suture material and tiny calcified granuloma. Remaining heart and lungs unremarkable. Bony thorax intact again with mild osteopenia, degenerative changes, and mild dextroscoliosis. Impression: Nonacute chest with chronic features.
[2022-07-28 16:18] LABS: INFLUENZA A NEGATIVE (NEGATIVE); INFLUENZA B NEGATIVE (NEGATIVE); RESPIRATORY SYNCTIAL VIRUS NEGATIVE (Negative)
[2022-07-28 16:26] LABS: SARS-CoV-2 Xpert Express POSITIVE (NEGATIVE)
[2022-07-28 16:38] LABS: VBG BASE EXCESS -19.5 (-2.0-2.0); VBG HCO3- 7.7 meq/L (22-28); VBG HEMOGLOBIN 18.4; VBG O2 SATURATION 90.6 (95-100); VBG POTASSIUM 4.2 (3.5-5.1); VBG pH 7.13 (7.32-7.42)
[2022-07-28] MEDS: HUMULIN R 100 UNIT in Sodium Chloride 0.9% 100 ML IV PRN (17:09)
[2022-07-28] MEDS ORDERED: Sodium Chloride 0.9% 1000 ML 1,000 ML ONE (19:19)
--- NOTE | 2022-07-28 19:23 | ERPHSYRPT ---
- History of Present Illness Historian: patient Exam Limitations: no limitations Patient Subjective Stated Complaint: Pt states "I took an at home covid test on thursday and it was positive, I have not been able to keep anything down. I have even tried just sprite and i keep vomiting." Triage Nursing Assessment: Pt presented alert and oriented X 3, skin pwd. Pt able to speak in clear full sentences pt in no apparent respiratory distress. pt has general weakness as well Physician History: 56yo M presents to the ER w/ a 4 day hx of dizziness, weakness, nausea, vomiting and abdominal pain. He took a home COVID on Thursday that was positive. He reports over 10 episodes of NBNB emesis per day over this time. Patient also reports starting Ozempic 2 weeks ago. His abdominal pain is diffuse and sharp in nature. Patient states his glucose levels haven't been well controlled. Timing/Duration: day(s) (5) Activities at Onset: none Quality: aching Abdominal Pain Onset Location: RLQ, epigastric Pain Radiation: no radiation Severity of Pain-Max: mild Severity of Pain-Current: mild Modifying Factors: Improves With: nothing Associated Symptoms: diarrhea, fever/chills, fatigue, loss of appetite, nausea, vomiting, weakness, No shortness of breath Previous symptoms: no prior history Allergies/Adverse Reactions: lisinopril Allergy (Mild, Verified 07/28/22 22:28) Anaphylactic Reaction naproxen Adverse Reaction (Mild, Verified 07/28/22 22:28) Rash Home Medications: Albuterol 2.5 mg/3 ml Neb [Proventil 2.5 mg/3 ml Neb] 3 ml IH QID PRN PRN 10/15/16 [History] Albuterol Sulfate [Proair Hfa] 2 puffs IH QIDPRN PRN 10/15/16 [History] Amlodipine Besylate 5 mg [Norvasc 5 mg] 10 mg PO BID 11/12/20 [History] Insulin Glargine,Hum.rec.anlog [Basaglar Kwikpen U-100] 20 unit SQ BID 11/13/20 [History] Gabapentin [Neurontin ] 600 mg PO TID 02/17/21 [History] Esomeprazole Magnesium [Nexium] 40 mg PO BID 12/26/21 [History] Sildenafil Citrate [Viagra] 100 mg PO DAILY PRN PRN 12/26/21 [History] Empagliflozin [Jardiance] 25 mg PO DAILY 03/30/22 [History] Ergocalciferol (Vitamin D2) [Vitamin D2] 50,000 unit PO UD 03/30/22 [History] Metoprolol Tartrate 25 mg [Lopressor 25MG Tab] 25 mg PO BID 03/30/22 [History] Testosterone 1 pump TOP DAILY 03/30/22 [History] Diphenoxylate HCl/Atropine [Lomotil] 1 tab PO QIDPRN PRN 07/28/22 [History] Semaglutide [Ozempic] 0.5 mg SQ WEEKLY 07/28/22 [History] Hx Tetanus, Diphtheria Vaccination/Date Given: Yes Hx Influenza Vaccination/Date Given: Yes Hx Pneumococcal Vaccination/Date Given: Yes Immunizations Up to Date: Yes Travel Risk - International Travel Have you traveled outside of the country in past 3 weeks: No - Coronavirus Screening Are you exhibiting any of the following symptoms?: Yes Symptoms: Cough: New Onset, Vomiting/Diarrhea - Vaccine Status Have you recieved a Covid-19 vaccination: Yes Clinical Dental Technician: Personal Medicine - Vaccination Dates Date of 2cond Vaccination (if applicable): January 2021 - Review of Systems Constitutional: Fatigue, Lethargy, Malaise, Weakness, No Fever, No Chills Eyes: No Symptoms Ears, Nose, & Throat: No Symptoms Respiratory: Cough, No Dyspnea, No Wheezing Cardiac: No Symptoms Abdominal/Gastrointestinal: Abdominal Pain (RLQ, Epigastric), Nausea, Vomiting, Diarrhea, Appetite Changes Genitourinary Symptoms: No Symptoms Musculoskeletal: No Symptoms Skin: No Symptoms Neurological: No Symptoms Psychological: No Symptoms Endocrine: No Symptoms Hematologic/Lymphatic: No Symptoms Immunological/Allergic: No Symptoms All Other Systems: Reviewed and Negative - Past Medical History Pertinent Past Medical History: Yes Neurological History: Peripheral Neuropathy ENT History: Cataracts Cardiac History: Hypertension Respiratory History: Asthma, COPD, Lung Cancer, Pneumonia, Other Endocrine Medical History: Diabetes Type II Musculoskeletal History: Fractures GI Medical History: GERD, Gallbladder Disease, Irritable Bowel, Other History: No Pertinent History Psycho-Social History: No Pertinent History Male Reproductive Disorders: No Pertinent History Other Medical History: HAS BEEN IN REMISSION FOR LUNG CANCER X 10 YEARS. HX FRACTURE RIBS AND T6, T7 6 YEARS AGO AFTER FALL FROM LADDER. 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 both cataracts removed- suboptical implant in;. rt middle lobe remove - Social History Smoking Status: Never smoker Exposure to second hand smoke: No Drug Use: none Patient Lives Alone: No Significant Family History: no pertinent family hx - Nursing Vital Signs Nursing Vital Signs: Initial Vital Signs Temperature 97.2 F 07/28/22 14:59 Pulse Rate 103 H 07/28/22 14:59 Respiratory Rate 20 07/28/22 14:59 Blood Pressure 125/96 07/28/22 14:59 O2 Sat by Pulse Oximetry 99 07/28/22 14:59 Pain Scale Pain Intensity 4 - Physical Exam General Appearance: moderate distress Eye Exam: PERRL/EOMI Ears, Nose, Throat Exam: normal ENT inspection Neck Exam: normal inspection, non-tender, supple, full range of motion Respiratory Exam: normal breath sounds, lungs clear Cardiovascular Exam: regular rate/rhythm, normal heart sounds Gastrointestinal/Abdomen Exam: soft, tenderness, No distention, No guarding, No rebound Extremity Exam: normal inspection, No calf tenderness, No maría's sign, No swelling Neurologic Exam: alert, oriented x 3, cooperative Skin Exam: normal color, warm, dry, pale SpO2 Interpretation: normal SpO2: 98 O2 Delivery: Room Air - Course Nursing assessment & vital signs reviewed: Yes - Radiology Exams Chest X-ray Interpretation: Negative Ordered Tests: Medication Summary Discontinued Medications Generic Name Dose Route Start Last Admin Trade Name Freq PRN Reason Stop Dose Admin Albuterol Sulfate 2.5 mg 07/28/22 22:47 Albuterol Sulfate 2.5 Mg/3 Ml Neb 08/27/22 22:46 QIDPRN PRN SHORTNESS OF BREATH/WHEEZING Albuterol Sulfate 2 puff 07/28/22 22:47 07/29/22 05:23 Albuterol Common Canister Inhaler 08/27/22 22:46 2 puff QIDPRN PRN Administration SHORTNESS OF BREATH/WHEEZING Albuterol Sulfate 4 puff 07/29/22 06:44 Albuterol Common Canister Inhaler 08/27/22 22:46 QIDPRN PRN SHORTNESS OF BREATH/WHEEZING Albuterol Sulfate puff 07/29/22 16:54 Albuterol Common Canister Inhaler 08/28/22 16:53 QIDPRN PRN sob Albuterol Sulfate 2.5 mg 07/29/22 16:54 Albuterol Sulfate 2.5 Mg/3 Ml Neb 08/28/22 16:53 QID PRN PRN sob Amlodipine Besylate 10 mg 07/29/22 23:00 07/28/22 22:59 Amlodipine Besylate 5 Mg Tablet PO 07/29/22 23:01 10 mg ONCE ONE Administration Amlodipine Besylate Confirm 07/28/22 22:58 Amlodipine Besylate 5 Mg Tablet Administered 07/28/22 22:59 Dose 10 mg .ROUTE .STK-MED ONE Amlodipine Besylate 10 mg 07/29/22 22:00 07/30/22 09:32 Amlodipine Besylate 5 Mg Tablet PO 08/28/22 21:59 10 mg BID LEONIE Administration Benzonatate 200 mg 07/30/22 13:08 Benzonatate 100 Mg Capsule PO 08/29/22 13:07 TID PRN PRN COUGH Chlorphenir/Hydrocodone Polistirex 5 ml 07/29/22 13:15 07/30/22 09:33 Hydrocodone/Chlorphen P-Stirex 1 Ml Cyndie.Er.12h PO 08/28/22 13:14 5 ml [id number] PRN Administration COUGH Diphenoxylate HCl/Atropine 1 tablet 07/28/22 22:48 07/29/22 06:36 Diphenoxylate Hcl/Atropine 1 Tablet PO 08/27/22 22:47 1 tablet QID PRN PRN Administration DIARRHEA Diphenoxylate HCl/Atropine tablet 07/29/22 16:54 Diphenoxylate Hcl/Atropine 1 Tablet PO 08/28/22 16:53 QIDPRN PRN DIARRHEA Droperidol 1.25 mg 07/28/22 17:03 07/28/22 17:10 Droperidol 5 Mg/2 Ml Vial IV 07/28/22 17:04 1.25 mg STAT ONE Administration Droperidol Confirm 07/28/22 17:09 Droperidol 5 Mg/2 Ml Vial Administered 07/28/22 17:10 Dose 5 mg .ROUTE .STK-MED ONE Empagliflozin 25 mg 07/29/22 18:00 07/30/22 09:34 Empagliflozin 10 Mg Tablet PO 08/28/22 17:59 25 mg DAILY LEONIE Administration Ergocalciferol 50,000 unit 07/31/22 10:00 Ergocalciferol (Vitamin D2) 50,000 Unit Capsule PO 08/30/22 09:59 MoTh LEONIE Gabapentin 600 mg 07/29/22 23:00 07/28/22 22:59 Gabapentin 300 Mg Capsule PO 07/29/22 23:01 600 mg ONCE ONE Administration Gabapentin Confirm 07/28/22 22:58 Gabapentin 300 Mg Capsule Administered 07/28/22 22:59 Dose 600 mg .ROUTE .STK-MED ONE Gabapentin 600 mg 07/29/22 22:00 07/30/22 09:33 Gabapentin 300 Mg Capsule PO 08/28/22 21:59 600 mg TID LEONIE Administration Insulin Human Regular 100 unit 100 mls @ 7.39 mls/hr 07/28/22 16:36 07/29/22 12:08 / Sodium Chloride IV 08/27/22 16:35 0.1 unit/kg/hr .[id number] PRN 7.3 mls/hr DKA/HYPERGLYCEMIA Administration Protocol 0.1 UNIT/KG/HR Sodium Chloride 1,000 mls @ 150 mls/hr 07/28/22 19:30 07/28/22 19:20 Sodium Chloride 0.9% 1000 Ml IV 08/27/22 19:29 150 mls/hr .[id number] LEONIE Administration Sodium Chloride Confirm 07/28/22 19:19 Sodium Chloride 0.9% 1000 Ml Administered 07/28/22 19:20 Dose 1,000 mls @ ud .ROUTE .STK-MED ONE Sodium Chloride 1,000 mls @ 250 mls/hr 07/28/22 22:42 07/29/22 01:19 Sodium Chloride 0.9% 1000 Ml IV 07/29/22 02:41 999 mls/hr .Q4H STA Administration Potassium Chloride 20 meq in 100 mls @ 50 mls/hr 07/29/22 00:15 07/29/22 02:21 Potassium Chloride 20 Meq In Water 100ml IV 07/29/22 04:14 50 mls/hr Q2H LEONIE Administration Potassium Chloride/Dextrose/Sod Cl 1,000 mls @ 150 mls/hr 07/29/22 02:30 07/29/22 09:43 D5w/0.45ns W/ 20meq Kcl 1000 Ml IV 08/28/22 02:29 150 mls/hr .[id number] LEONIE Administration Potassium Chloride 20 meq in 100 mls @ 50 mls/hr 07/29/22 08:15 07/29/22 10:29 Potassium Chloride 20 Meq In Water 100ml IV 07/29/22 12:14 50 mls/hr Q2H LEONIE Administration Insulin Glargine 20 unit 07/29/22 22:00 07/30/22 09:33 Insulin Glargine 1 Unit SQ 08/28/22 21:59 20 unit BID LEONIE Administration Insulin Human Lispro 0 unit 07/29/22 12:21 07/30/22 12:52 Insulin Lispro 1 Unit SQ 08/28/22 12:20 4 unit UD PRN Administration HYPERGLYCEMIA Metoprolol Tartrate 25 mg 07/29/22 23:00 07/28/22 22:59 Metoprolol Tartrate 25 Mg Tab PO 07/29/22 23:01 25 mg ONCE ONE Administration Metoprolol Tartrate Confirm 07/28/22 22:58 Metoprolol Tartrate 25 Mg Tab Administered 07/28/22 22:59 Dose 25 mg .ROUTE .STK-MED ONE Metoprolol Tartrate 25 mg 07/29/22 22:00 07/30/22 09:32 Metoprolol Tartrate 25 Mg Tab PO 08/28/22 21:59 25 mg BID LEONIE Administration Miscellaneous Information 1 each 07/29/22 17:15 Medication Intervention 1 Each Each 08/28/22 17:14 .RN TO CHECK LEONIE Miscellaneous Information 1 each 07/29/22 17:15 Medication Intervention 1 Each Each 08/28/22 17:14 .RN TO CHECK LEONIE Ondansetron HCl 4 mg 07/28/22 15:26 07/28/22 15:52 Ondansetron Hcl 4 Mg/2 Ml Vial IV 07/28/22 15:27 4 mg STAT ONE Administration Ondansetron HCl Confirm 07/28/22 15:51 Ondansetron Hcl 4 Mg/2 Ml Vial Administered 07/28/22 15:52 Dose 4 mg .ROUTE .STK-MED ONE Ondansetron HCl 4 mg 07/28/22 22:51 Ondansetron Hcl 4 Mg/2 Ml Vial IV 08/27/22 22:50 Q4H PRN PRN NAUSEA/VOMITING Pantoprazole Sodium 40 mg 07/29/22 23:00 07/28/22 22:59 Protonix (Pantoprazole) 40 Mg Tablet PO 07/29/22 23:01 40 mg ONCE ONE Administration Pantoprazole Sodium Confirm 07/28/22 22:58 Protonix (Pantoprazole) 40 Mg Tablet Administered 07/28/22 22:59 Dose 40 mg .ROUTE .STK-MED ONE Pantoprazole Sodium 40 mg 07/29/22 22:00 07/30/22 09:32 Protonix (Pantoprazole) 40 Mg Tablet PO 08/28/22 21:59 40 mg BID LEONIE Administration Lab/Rad Data: Laboratory Result Diagrams 07/28/22 15:26 07/28/22 15:37 Laboratory Results 07/28/22 07/28/22 07/28/22 Range/Units 21:24 19:24 19:20 WBC (4.0-10.5) x10^3/uL RBC (4.1-5.6) x10^6/uL Hgb (12.5-18.0) g/dL Hct (42-50) % MCV (78-100) fL MCH (26-32) pg MCHC (32-36) g/dL RDW (11.5-14.0) % Plt Count (150-450) x10^3/uL MPV (7.5-11.0) fL Gran % (36.0-66.0) % Immature Gran % (Auto) (0.00-0.4) % Nucleat RBC Rel Count (0.00-0.1) % Eos # (Auto) (0-0.5) x10^3/uL Immature Gran # (Auto) (0.00-0.03) x10^3u/L Absolute Lymphs (auto) (1.0-4.6) x10^3/uL Absolute Monos (auto) (0.0-1.3) x10^3/uL Absolute Nucleated RBC (0.00-0.01) x10^3u/L Lymphocytes % (24.0-44.0) % Monocytes % (0.0-12.0) % Eosinophils % (0.00-5.0) % Basophils % (0.0-0.4) % Absolute Granulocytes (1.4-6.9) x10^3/uL Basophils # (0-0.4) x10^3/uL PT (9.4-12.5) SECONDS INR (0.8-3.0) APTT (25.1-36.5) SECONDS D-Dimer (0.0-0.50) mg/L pO2/FiO2 Ratio % VBG pH (7.32-7.42) VBG pCO2 at Pat Temp (42-55) mm/Hg VBG pO2 at Pat Temp (25-40) mm/Hg VBG HCO3 (22-28) meq/L VBG O2 Sat ([place]) (95-100) VBG Base Excess (-2.0-2.0) VBG Hemoglobin VBG Carboxyhemoglobin (0.0-6.9) % T HGB POC Potassium (3.5-5.1) Sodium (137-145) mmol/L Potassium (3.5-5.1) mmol/L Chloride (98-107) mmol/L Carbon Dioxide (22-30) mmol/L Anion Gap (5-15) MEQ/L BUN (9-20) mg/dL Creatinine (0.66-1.25) mg/dL Estimated GFR ML/MIN Glucose (74-106) mg/dL POC Glucometer 262 H (74 to 106) mg/dL Lactic Acid 3.9 H (0.4-2.0) Calcium (8.4-10.2) mg/dL Ferritin (17.9-464) ng/mL Total Bilirubin (0.2-1.3) mg/dL AST (17-59) U/L ALT (0-50) U/L Alkaline Phosphatase (38-126) U/L Lactate Dehydrogenase (120-246) U/L Troponin I < 0.012 (0.000-0.034) ng/mL Serum Total Protein (6.3-8.2) g/dL Albumin (3.5-5.0) g/dL Lipase (23-300) U/L Urinalys Dipstick Clnc Urine Color (YELLOW) Urine Appearance (CLEAR) Urine pH (5-6) Ur Specific [place] (1.005-1.025) POC Urine Protein Conf (Negative) Urine Ketones (NEGATIVE) Urine Nitrite (NEGATIVE) Urine Bilirubin (NEGATIVE) Urine Urobilinogen (0-1) mg/dL Urine Leukocytes (NEGATIVE) Urine WBC (Auto) (0-5) /HPF Urine RBC (Auto) (0-2) /HPF U Hyaline Cast (Auto) (0-2) /LPF U Epithel Cells (Auto) (FEW) /HPF Urine Bacteria (Auto) (NEGATIVE) /HPF Urine RBC (0-5) Kaden/ul Urine Mucus (Auto) (NEGATIVE) /HPF Ur Culture Indicated? Urine Glucose (NEGATIVE) mg/dL Influenza Type A Ag (NEGATIVE) Influenza Type B Ag (NEGATIVE) RSV (PCR) (Negative) SARS-CoV-2 (PCR) (NEGATIVE) 07/28/22 07/28/22 07/28/22 Range/Units 19:16 16:36 15:40 WBC (4.0-10.5) x10^3/uL RBC (4.1-5.6) x10^6/uL Hgb (12.5-18.0) g/dL Hct (42-50) % MCV (78-100) fL MCH (26-32) pg MCHC (32-36) g/dL RDW (11.5-14.0) % Plt Count (150-450) x10^3/uL MPV (7.5-11.0) fL Gran % (36.0-66.0) % Immature Gran % (Auto) (0.00-0.4) % Nucleat RBC Rel Count (0.00-0.1) % Eos # (Auto) (0-0.5) x10^3/uL Immature Gran # (Auto) (0.00-0.03) x10^3u/L Absolute Lymphs (auto) (1.0-4.6) x10^3/uL Absolute Monos (auto) (0.0-1.3) x10^3/uL Absolute Nucleated RBC (0.00-0.01) x10^3u/L Lymphocytes % (24.0-44.0) % Monocytes % (0.0-12.0) % Eosinophils % (0.00-5.0) % Basophils % (0.0-0.4) % Absolute Granulocytes (1.4-6.9) x10^3/uL Basophils # (0-0.4) x10^3/uL PT (9.4-12.5) SECONDS INR (0.8-3.0) APTT (25.1-36.5) SECONDS D-Dimer (0.0-0.50) mg/L pO2/FiO2 Ratio 21.0 % VBG pH 7.13 L* (7.32-7.42) VBG pCO2 at Pat Temp 23 L* (42-55) mm/Hg VBG pO2 at Pat Temp 57 H (25-40) mm/Hg VBG HCO3 7.7 L* (22-28) meq/L VBG O2 Sat ([place]) 90.6 L (95-100) VBG Base Excess -19.5 L (-2.0-2.0) VBG Hemoglobin 18.4 VBG Carboxyhemoglobin 3.0 (0.0-6.9) % T HGB POC Potassium 4.2 (3.5-5.1) Sodium (137-145) mmol/L Potassium (3.5-5.1) mmol/L Chloride (98-107) mmol/L Carbon Dioxide (22-30) mmol/L Anion Gap (5-15) MEQ/L BUN (9-20) mg/dL Creatinine (0.66-1.25) mg/dL Estimated GFR ML/MIN Glucose (74-106) mg/dL POC Glucometer 420 H (74 to 106) mg/dL Lactic Acid (0.4-2.0) Calcium (8.4-10.2) mg/dL Ferritin (17.9-464) ng/mL Total Bilirubin (0.2-1.3) mg/dL AST (17-59) U/L ALT (0-50) U/L Alkaline Phosphatase (38-126) U/L Lactate Dehydrogenase (120-246) U/L Troponin I (0.000-0.034) ng/mL Serum Total Protein (6.3-8.2) g/dL Albumin (3.5-5.0) g/dL Lipase (23-300) U/L Urinalys Dipstick Clnc Urine Color (YELLOW) Urine Appearance (CLEAR) Urine pH (5-6) Ur Specific [place] (1.005-1.025) POC Urine Protein Conf (Negative) Urine Ketones (NEGATIVE) Urine Nitrite (NEGATIVE) Urine Bilirubin (NEGATIVE) Urine Urobilinogen (0-1) mg/dL Urine Leukocytes (NEGATIVE) Urine WBC (Auto) (0-5) /HPF Urine RBC (Auto) (0-2) /HPF U Hyaline Cast (Auto) (0-2) /LPF U Epithel Cells (Auto) (FEW) /HPF Urine Bacteria (Auto) (NEGATIVE) /HPF Urine RBC (0-5) Kaden/ul Urine Mucus (Auto) (NEGATIVE) /HPF Ur Culture Indicated? Urine Glucose (NEGATIVE) mg/dL Influenza Type A Ag NEGATIVE (NEGATIVE) Influenza Type B Ag NEGATIVE (NEGATIVE) RSV (PCR) NEGATIVE (Negative) SARS-CoV-2 (PCR) POSITIVE A (NEGATIVE) 07/28/22 07/28/22 07/28/22 Range/Units 15:37 15:37 15:37 WBC (4.0-10.5) x10^3/uL RBC (4.1-5.6) x10^6/uL Hgb (12.5-18.0) g/dL Hct (42-50) % MCV (78-100) fL MCH (26-32) pg MCHC (32-36) g/dL RDW (11.5-14.0) % Plt Count (150-450) x10^3/uL MPV (7.5-11.0) fL Gran % (36.0-66.0) % Immature Gran % (Auto) (0.00-0.4) % Nucleat RBC Rel Count (0.00-0.1) % Eos # (Auto) (0-0.5) x10^3/uL Immature Gran # (Auto) (0.00-0.03) x10^3u/L Absolute Lymphs (auto) (1.0-4.6) x10^3/uL Absolute Monos (auto) (0.0-1.3) x10^3/uL Absolute Nucleated RBC (0.00-0.01) x10^3u/L Lymphocytes % (24.0-44.0) % Monocytes % (0.0-12.0) % Eosinophils % (0.00-5.0) % Basophils % (0.0-0.4) % Absolute Granulocytes (1.4-6.9) x10^3/uL Basophils # (0-0.4) x10^3/uL PT (9.4-12.5) SECONDS INR (0.8-3.0) APTT (25.1-36.5) SECONDS D-Dimer (0.0-0.50) mg/L pO2/FiO2 Ratio % VBG pH (7.32-7.42) VBG pCO2 at Pat Temp (42-55) mm/Hg VBG pO2 at Pat Temp (25-40) mm/Hg VBG HCO3 (22-28) meq/L VBG O2 Sat ([place]) (95-100) VBG Base Excess (-2.0-2.0) VBG Hemoglobin VBG Carboxyhemoglobin (0.0-6.9) % T HGB POC Potassium (3.5-5.1) Sodium (137-145) mmol/L Potassium (3.5-5.1) mmol/L Chloride (98-107) mmol/L Carbon Dioxide (22-30) mmol/L Anion Gap (5-15) MEQ/L BUN (9-20) mg/dL Creatinine (0.66-1.25) mg/dL Estimated GFR ML/MIN Glucose (74-106) mg/dL POC Glucometer (74 to 106) mg/dL Lactic Acid (0.4-2.0) Calcium (8.4-10.2) mg/dL Ferritin 454 (17.9-464) ng/mL Total Bilirubin (0.2-1.3) mg/dL AST (17-59) U/L ALT (0-50) U/L Alkaline Phosphatase (38-126) U/L Lactate Dehydrogenase (120-246) U/L Troponin I < 0.012 (0.000-0.034) ng/mL Serum Total Protein (6.3-8.2) g/dL Albumin (3.5-5.0) g/dL Lipase 31 (23-300) U/L Urinalys Dipstick Clnc Urine Color (YELLOW) Urine Appearance (CLEAR) Urine pH (5-6) Ur Specific [place] (1.005-1.025) POC Urine Protein Conf (Negative) Urine Ketones (NEGATIVE) Urine Nitrite (NEGATIVE) Urine Bilirubin (NEGATIVE) Urine Urobilinogen (0-1) mg/dL Urine Leukocytes (NEGATIVE) Urine WBC (Auto) (0-5) /HPF Urine RBC (Auto) (0-2) /HPF U Hyaline Cast (Auto) (0-2) /LPF U Epithel Cells (Auto) (FEW) /HPF Urine Bacteria (Auto) (NEGATIVE) /HPF Urine RBC (0-5) Kaden/ul Urine Mucus (Auto) (NEGATIVE) /HPF Ur Culture Indicated? Urine Glucose (NEGATIVE) mg/dL Influenza Type A Ag (NEGATIVE) Influenza Type B Ag (NEGATIVE) RSV (PCR) (Negative) SARS-CoV-2 (PCR) (NEGATIVE) 07/28/22 07/28/22 07/28/22 Range/Units 15:37 15:37 15:32 WBC (4.0-10.5) x10^3/uL RBC (4.1-5.6) x10^6/uL Hgb (12.5-18.0) g/dL Hct (42-50) % MCV (78-100) fL MCH (26-32) pg MCHC (32-36) g/dL RDW (11.5-14.0) % Plt Count (150-450) x10^3/uL MPV (7.5-11.0) fL Gran % (36.0-66.0) % Immature Gran % (Auto) (0.00-0.4) % Nucleat RBC Rel Count (0.00-0.1) % Eos # (Auto) (0-0.5) x10^3/uL Immature Gran # (Auto) (0.00-0.03) x10^3u/L Absolute Lymphs (auto) (1.0-4.6) x10^3/uL Absolute Monos (auto) (0.0-1.3) x10^3/uL Absolute Nucleated RBC (0.00-0.01) x10^3u/L Lymphocytes % (24.0-44.0) % Monocytes % (0.0-12.0) % Eosinophils % (0.00-5.0) % Basophils % (0.0-0.4) % Absolute Granulocytes (1.4-6.9) x10^3/uL Basophils # (0-0.4) x10^3/uL PT 10.9 (9.4-12.5) SECONDS INR 1.03 (0.8-3.0) APTT 25.6 (25.1-36.5) SECONDS D-Dimer 0.38 (0.0-0.50) mg/L pO2/FiO2 Ratio % VBG pH (7.32-7.42) VBG pCO2 at Pat Temp (42-55) mm/Hg VBG pO2 at Pat Temp (25-40) mm/Hg VBG HCO3 (22-28) meq/L VBG O2 Sat ([place]) (95-100) VBG Base Excess (-2.0-2.0) VBG Hemoglobin VBG Carboxyhemoglobin (0.0-6.9) % T HGB POC Potassium (3.5-5.1) Sodium 146 H (137-145) mmol/L Potassium 4.1 (3.5-5.1) mmol/L Chloride 104 (98-107) mmol/L Carbon Dioxide 6 L* (22-30) mmol/L Anion Gap 40.6 H (5-15) MEQ/L BUN 39 H (9-20) mg/dL Creatinine 1.90 H (0.66-1.25) mg/dL Estimated GFR 38.9 ML/MIN Glucose 521 H* (74-106) mg/dL POC Glucometer (74 to 106) mg/dL Lactic Acid 4.8 H (0.4-2.0) Calcium 10.6 H (8.4-10.2) mg/dL Ferritin (17.9-464) ng/mL Total Bilirubin 0.80 (0.2-1.3) mg/dL AST 24 (17-59) U/L ALT 24 (0-50) U/L Alkaline Phosphatase 154 H (38-126) U/L Lactate Dehydrogenase 201 (120-246) U/L Troponin I (0.000-0.034) ng/mL Serum Total Protein 9.5 H (6.3-8.2) g/dL Albumin 5.5 H (3.5-5.0) g/dL Lipase (23-300) U/L Urinalys Dipstick Clnc Urine Color (YELLOW) Urine Appearance (CLEAR) Urine pH (5-6) Ur Specific [place] (1.005-1.025) POC Urine Protein Conf (Negative) Urine Ketones (NEGATIVE) Urine Nitrite (NEGATIVE) Urine Bilirubin (NEGATIVE) Urine Urobilinogen (0-1) mg/dL Urine Leukocytes (NEGATIVE) Urine WBC (Auto) (0-5) /HPF Urine RBC (Auto) (0-2) /HPF U Hyaline Cast (Auto) (0-2) /LPF U Epithel Cells (Auto) (FEW) /HPF Urine Bacteria (Auto) (NEGATIVE) /HPF Urine RBC (0-5) Kaden/ul Urine Mucus (Auto) (NEGATIVE) /HPF Ur Culture Indicated? Urine Glucose (NEGATIVE) mg/dL Influenza Type A Ag (NEGATIVE) Influenza Type B Ag (NEGATIVE) RSV (PCR) (Negative) SARS-CoV-2 (PCR) (NEGATIVE) 07/28/22 07/28/22 Range/Units 15:26 00:25 WBC 16.1 H (4.0-10.5) x10^3/uL RBC 6.07 H (4.1-5.6) x10^6/uL Hgb 17.9 (12.5-18.0) g/dL Hct 56.5 H (42-50) % MCV 93.1 (78-100) fL MCH 29.5 (26-32) pg MCHC 31.7 L (32-36) g/dL RDW 13.2 (11.5-14.0) % Plt Count 316 (150-450) x10^3/uL MPV 9.8 (7.5-11.0) fL Gran % 88.6 H (36.0-66.0) % Immature Gran % (Auto) 0.6 H (0.00-0.4) % Nucleat RBC Rel Count 0.0 (0.00-0.1) % Eos # (Auto) 0 (0-0.5) x10^3/uL Immature Gran # (Auto) 0.09 H (0.00-0.03) x10^3u/L Absolute Lymphs (auto) 1.16 (1.0-4.6) x10^3/uL Absolute Monos (auto) 0.55 (0.0-1.3) x10^3/uL Absolute Nucleated RBC 0.00 (0.00-0.01) x10^3u/L Lymphocytes % 7.2 L (24.0-44.0) % Monocytes % 3.4 (0.0-12.0) % Eosinophils % 0.0 (0.00-5.0) % Basophils % 0.2 (0.0-0.4) % Absolute Granulocytes 14.24 H (1.4-6.9) x10^3/uL Basophils # 0.04 (0-0.4) x10^3/uL PT (9.4-12.5) SECONDS INR (0.8-3.0) APTT (25.1-36.5) SECONDS D-Dimer (0.0-0.50) mg/L pO2/FiO2 Ratio % VBG pH (7.32-7.42) VBG pCO2 at Pat Temp (42-55) mm/Hg VBG pO2 at Pat Temp (25-40) mm/Hg VBG HCO3 (22-28) meq/L VBG O2 Sat ([place]) (95-100) VBG Base Excess (-2.0-2.0) VBG Hemoglobin VBG Carboxyhemoglobin (0.0-6.9) % T HGB POC Potassium (3.5-5.1) Sodium (137-145) mmol/L Potassium (3.5-5.1) mmol/L Chloride (98-107) mmol/L Carbon Dioxide (22-30) mmol/L Anion Gap (5-15) MEQ/L BUN (9-20) mg/dL Creatinine (0.66-1.25) mg/dL Estimated GFR ML/MIN Glucose (74-106) mg/dL POC Glucometer (74 to 106) mg/dL Lactic Acid (0.4-2.0) Calcium (8.4-10.2) mg/dL Ferritin (17.9-464) ng/mL Total Bilirubin (0.2-1.3) mg/dL AST (17-59) U/L ALT (0-50) U/L Alkaline Phosphatase (38-126) U/L Lactate Dehydrogenase (120-246) U/L Troponin I (0.000-0.034) ng/mL Serum Total Protein (6.3-8.2) g/dL Albumin (3.5-5.0) g/dL Lipase (23-300) U/L Urinalys Dipstick Clnc MAIN LAB Urine Color YELLOW (YELLOW) Urine Appearance CLEAR (CLEAR) Urine pH 5.0 (5-6) Ur Specific [place] 1.015 (1.005-1.025) POC Urine Protein Conf 30 A (Negative) Urine Ketones LARGE-80 A (NEGATIVE) Urine Nitrite NEGATIVE (NEGATIVE) Urine Bilirubin MODERATE A (NEGATIVE) Urine Urobilinogen 0.2 (0-1) mg/dL Urine Leukocytes NEGATIVE (NEGATIVE) Urine WBC (Auto) 0-2 (0-5) /HPF Urine RBC (Auto) NONE (0-2) /HPF U Hyaline Cast (Auto) 6-10 A (0-2) /LPF U Epithel Cells (Auto) RARE (FEW) /HPF Urine Bacteria (Auto) NONE (NEGATIVE) /HPF Urine RBC MODERATE A (0-5) Kaden/ul Urine Mucus (Auto) SLIGHT A (NEGATIVE) /HPF Ur Culture Indicated? YES Urine Glucose 500 A (NEGATIVE) mg/dL Influenza Type A Ag (NEGATIVE) Influenza Type B Ag (NEGATIVE) RSV (PCR) (Negative) SARS-CoV-2 (PCR) (NEGATIVE) - Progress Progress: unchanged Progress Note: Patient has tested positive for COVID and appears to be in DKA. pH 7.13, HCO3 6, AG 22, K 4.1, Glu 521, lactate 4.8, WBC 16.1. Patient was started on insulin gtt and IVF. He will go to ICU. 07/31/22 15:12 07/31/22 15:13 Discussed with : Catalina Will see patient in: hospital (observation) Counseled pt/family regarding: lab results, diagnosis, rad results - Departure Departure Disposition: In-patient Admission Clinical Impression: DKA (diabetic ketoacidosis), COVID-19, Leukocytosis Condition: Stable Critical Care Time: Yes Critical Care Time(excluding separately billable procedures): Critical 30-74 mins
[2022-07-28] MEDS ORDERED: Sodium Chloride 0.9% 1000 ML 1,000 ML IV SCH (19:30)
[2022-07-28] MEDS ORDERED: VENTOLIN COMMON CANISTER IH PRN (22:47)
[2022-07-28] MEDS ORDERED: PROVENTIL 2.5 MG/3 ML NEB IH PRN (22:47)
[2022-07-28] MEDS ORDERED: Lomotil PO PRN (22:48)
[2022-07-28] MEDS ORDERED: Zofran 4 MG/2 ML VIAL IV PRN (22:51)
[2022-07-28] MEDS ORDERED: NEURONTIN ONE (22:58)
[2022-07-28] MEDS ORDERED: NORVASC 5 MG ONE (22:58)
[2022-07-28] MEDS ORDERED: Protonix 40MG Tablet ONE (22:58)
[2022-07-28] MEDS ORDERED: Lopressor 25MG Tab ONE (22:58)
[2022-07-28] MEDS: Sodium Chloride 0.9% 1000 ML 1,000 ML IV STA (22:59)
[2022-07-28 23:43] LABS: A-aADO2 -17; ABG HEMOGLOBIN 16.8; ABG POTASSIUM 3.4 (3.5-5.1); ARTERIAL BLD GAS O2 SATURATION 98.4 % (95-100); ARTERIAL BLOOD GAS BASE EXCESS -9.5 (-2.0-2.0); ARTERIAL BLOOD GAS FIO2 21 %; ARTERIAL BLOOD GAS PCO2 21 mmHg (35-45); ARTERIAL BLOOD GAS PO2 140 mmHg (75-100); ARTERIAL BLOOD GAS pH 7.39 (7.35-7.45); CARBOXYHEMOGLOBIN 2.1 % THgb (0.0-6.9); HCO3- 12.7 (22-28); HGB O2 SAT 95.5 g/dF (94-100); Methhemoglobin 0.8 % (1.4-1.5)
[2022-07-28 23:45] LABS: ABG SITE RIGHT RADIAL; ALLEN TEST OK? YES
[2022-07-28 23:55] LABS: Calcium 9.8 mg/dL (8.4-10.2); Creatinine 1 1.67 mg/dL (0.66-1.25); EST GLOMERULAR FILTRATION RATE 45.1 ML/MIN; Potassium 3.3 mmol/L (3.5-5.1)
[2022-07-29] MEDS: POTASSIUM CHLORIDE 20 mEq IN WATER 100ML 20 MEQ/100 ML BAG IV SCH ×4 (00:17→10:29)
[2022-07-29 01:04] LABS: Appearance CLEAR (CLEAR); Bilirubin MODERATE (NEGATIVE); Dipstick done @ ? MAIN LAB; Glucose 500 mg/dL (NEGATIVE); Ketones LARGE-80 (NEGATIVE); Nitrite NEGATIVE (NEGATIVE); Protein,Urine Dip 30 (Negative); RBC MODERATE Ery/ul (0-5); Specific Gravity 1.015 (1.005-1.025); Urobilinogen 0.2 mg/dL (0-1)
[2022-07-29 01:12] LABS: Epithelial Cells RARE /HPF (FEW); Mucus SLIGHT /HPF (NEGATIVE); WBC 0-2 /HPF (0-5)
[2022-07-29 01:18] LABS: Urine Cultured Indicated? YES
[2022-07-29] MEDS: Sodium Chloride 0.9% 1000 ML 1,000 ML IV STA (01:19)
[2022-07-29] MEDS: D5W/0.45NS W/ 20mEq KCl 1000 ML 1,000 ML IV SCH ×2 (02:07→09:43)
[2022-07-29 03:32] LABS: A-aADO2 12; ABG HEMOGLOBIN 14.4; ABG POTASSIUM 4.1 (3.5-5.1); ARTERIAL BLD GAS O2 SATURATION 98.7 % (95-100); ARTERIAL BLOOD GAS BASE EXCESS -6.5 (-2.0-2.0); ARTERIAL BLOOD GAS FIO2 21 %; ARTERIAL BLOOD GAS PCO2 27 mmHg (35-45); ARTERIAL BLOOD GAS PO2 104 mmHg (75-100); CARBOXYHEMOGLOBIN 2.5 % THgb (0.0-6.9); HCO3- 16.7 (22-28); HGB O2 SAT 95.5 g/dF (94-100); Methhemoglobin 0.7 % (1.4-1.5)
[2022-07-29 03:33] LABS: ABG SITE RIGHT RADIAL; ALLEN TEST OK? YES
[2022-07-29 03:43] LABS: ANION GAP 11.9 MEQ/L (5-15); Calcium 8.3 mg/dL (8.4-10.2); Creatinine 1 1.31 mg/dL (0.66-1.25); EST GLOMERULAR FILTRATION RATE 59.7 ML/MIN; Potassium 3.8 mmol/L (3.5-5.1)
[2022-07-29 06:02] LABS: Hematocrit 42.4 % (42-50); Hemoglobin 14.2 g/dL (12.5-18.0); Mean Cell Volume 88.9 fL (78-100); Mean Corpuscular Hemoglobin 29.8 pg (26-32); Mean Corpuscular Hgb Concent. 33.5 g/dL (32-36); Mean Platelet Volume 9.6 fL (7.5-11.0); Platelet Count 262 x10^3/uL (150-450); Red Blood Count 4.77 x10^6/uL (4.1-5.6); Red Cell Distribution Width 13.2 % (11.5-14.0); White Blood Count 14.5 x10^3/uL (4.0-10.5)
[2022-07-29] MEDS ORDERED: VENTOLIN COMMON CANISTER IH PRN ×2 (06:44→16:54)
[2022-07-29 07:54] LABS: ANION GAP 14.7 MEQ/L (5-15); BLOOD UREA NITROGEN 40 mg/dL (9-20); CHLORIDE 114 mmol/L (98-107); Calcium 8.2 mg/dL (8.4-10.2); Creatinine 1 1.18 mg/dL (0.66-1.25); EST GLOMERULAR FILTRATION RATE > 60.0 ML/MIN; Glucose 252 mg/dL (74-106); Potassium 3.7 mmol/L (3.5-5.1); SODIUM 140 mmol/L (137-145)
[2022-07-29 07:56] LABS: Carbon Dioxide 14 mmol/L (22-30)
[2022-07-29 11:18] LABS: BLOOD UREA NITROGEN 32 mg/dL (9-20); CHLORIDE 112 mmol/L (98-107); Carbon Dioxide 18 mmol/L (22-30); Creatinine 1 1.05 mg/dL (0.66-1.25); EST GLOMERULAR FILTRATION RATE > 60.0 ML/MIN; Glucose 169 mg/dL (74-106); Potassium 4.2 mmol/L (3.5-5.1); SODIUM 135 mmol/L (137-145)
--- NOTE | 2022-07-29 11:28 | PCM.HP ---
History of Present Illness - Chief Complaint Chief Complaint: DKA, COVID History of Present Illness: is a 56 year old male came to Abdominal pain RLQ, nausea, vomiting - Review of Systems Constitutional: No Fever, No Chills Eyes: No Symptoms Ears, Nose, & Throat: No Symptoms Respiratory: No Cough, No Short Of Breath Cardiac: No Chest Pain, No Edema, No Syncope Abdominal/Gastrointestinal: Abdominal Pain, No Nausea, No Vomiting, No Diarrhea Genitourinary Symptoms: No Dysuria Musculoskeletal: No Back Pain, No Neck Pain Skin: No Rash Neurological: No Dizziness, No Focal Weakness, No Sensory Changes Psychological: No Symptoms Endocrine: No Symptoms Hematologic/Lymphatic: No Symptoms Immunological/Allergic: No Symptoms Medications & Allergies Home Medications: Home Medication List Albuterol 2.5 mg/3 ml Neb [Proventil 2.5 mg/3 ml Neb] 3 ml IH QID PRN PRN 10/15/16 [History Confirmed 07/28/22] Albuterol Sulfate [Proair Hfa] 2 puffs IH QIDPRN PRN 10/15/16 [History Confirmed 07/28/22] Amlodipine Besylate 5 mg [Norvasc 5 mg] 10 mg PO BID 11/12/20 [History Confirmed 07/28/22] Insulin Glargine,Hum.rec.anlog [Basaglar Kwikpen U-100] 20 unit SQ BID 11/13/20 [History Confirmed 07/28/22] Gabapentin [Neurontin ] 600 mg PO TID 02/17/21 [History Confirmed 07/04 01/22] Esomeprazole Magnesium [Nexium] 40 mg PO BID 12/26/21 [History Confirmed 07/28/22] Sildenafil Citrate [Viagra] 100 mg PO DAILY PRN PRN 12/26/21 [History Confirmed 07/28/22] Empagliflozin [Jardiance] 25 mg PO DAILY 03/30/22 [History Confirmed 07/28/22] Ergocalciferol (Vitamin D2) [Vitamin D2] 50,000 unit PO UD 03/30/22 [History Confirmed 07/28/22] Metoprolol Tartrate 25 mg [Lopressor 25MG Tab] 25 mg PO BID 03/30/22 [History Confirmed 07/28/22] Testosterone 1 pump TOP DAILY 03/30/22 [History Confirmed 07/28/22] Diphenoxylate HCl/Atropine [Lomotil] 1 tab PO QIDPRN PRN 07/28/22 [History Confirmed 07/28/22] Semaglutide [Ozempic] 0.5 mg SQ WEEKLY 07/28/22 [History Confirmed 07/28/22] Allergies/Adverse Reactions: Allergies Allergy/AdvReac Type Severity Reaction Status Date / Time lisinopril Allergy Mild Anaphylactic Verified 07/28/22 22:28 Reaction naproxen AdvReac Mild Rash Verified 07/28/22 22:28 - Past Medical History Past Medical History: Yes Neurological History: Peripheral Neuropathy ENT History: Cataracts Cardiac History: Hypertension Respiratory History: Asthma, COPD, Lung Cancer, Pneumonia, Other Endocrine Medical History: Diabetes Type II Musculoskelatal History: Fractures GI Medical History: GERD, Gallbladder Disease, Irritable Bowel, Other History: No Pertinent History Pyscho-Social History: No Pertinent History Male Reproductive Disorders: No Pertinent History Comment: HAS BEEN IN REMISSION FOR LUNG CANCER X 10 YEARS. HX FRACTURE RIBS AND T6, T7 6 YEARS AGO AFTER FALL FROM LADDER. 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 both cataracts removed- suboptical implant in;. rt middle lobe remove - Social History Smoking Status: Never smoker Exposure to second hand smoke: No Alcohol: None Drug Use: none Significant Family History: no pertinent family hx - Physical Exam Vital Signs: Vital Signs - 24 hr Temp Pulse Resp BP Pulse Ox 07/29/22 10:00 84 24 115/70 07/29/22 08:00 88 19 07/29/22 07:20 97.3 F 88 19 127/69 97 07/29/22 06:00 87 20 128/80 97 07/29/22 05:24 88 23 95 07/29/22 04:00 98.6 F 82 20 144/87 96 07/29/22 02:00 83 17 124/78 97 07/29/22 00:01 93 H 07/29/22 00:00 98.8 F 93 H 17 126/82 97 07/28/22 23:45 109 H 17 98 07/28/22 23:11 97.3 F 111 H 16 117/79 98 07/28/22 21:00 115 H 102/65 97 07/28/22 20:08 107 H 22 101/64 99 07/28/22 19:23 98 07/28/22 19:09 108 H 26 H 98 07/28/22 18:13 97.9 F 106 H 26 H 99/68 98 07/28/22 17:15 97.2 F 111 H 22 120/74 99 07/28/22 16:31 97.2 F 104 H 22 129/85 99 07/28/22 14:59 97.2 F 103 H 20 125/96 99 General Appearance: no apparent distress, alert Neurologic Exam: alert, oriented x 3, cooperative, normal mood/affect, nml cerebellar function, nml station & gait, sensation nml, No motor deficits Eye Exam: PERRL/EOMI, eyes nml inspection Ears, Nose, Throat Exam: normal ENT inspection, TMs normal, pharynx normal, moist mucous membranes Neck Exam: normal inspection, non-tender, supple, full range of motion Respiratory Exam: normal breath sounds, lungs clear, No respiratory distress Cardiovascular Exam: regular rate/rhythm, normal heart sounds, normal peripheral pulses Gastrointestinal/Abdomen Exam: soft, normal bowel sounds, No tenderness, No mass Back Exam: normal inspection, normal range of motion, No CVA tenderness, No vertebral tenderness Extremity Exam: normal inspection, normal range of motion, pelvis stable Skin Exam: normal color, warm, dry, No rash Lymphatic Exam: No adenopathy Results - Labs Lab/Micro Results: Lab Results-Last 24 Hours 07/28/22 07/28/22 07/28/22 Range/Units 00:25 15:26 15:32 WBC 16.1 H (4.0-10.5) x10^3/uL RBC 6.07 H (4.1-5.6) x10^6/uL Hgb 17.9 (12.5-18.0) g/dL Hct 56.5 H (42-50) % MCV 93.1 (78-100) fL MCH 29.5 (26-32) pg MCHC 31.7 L (32-36) g/dL RDW 13.2 (11.5-14.0) % Plt Count 316 (150-450) x10^3/uL MPV 9.8 (7.5-11.0) fL Gran % 88.6 H (36.0-66.0) % Immature Gran % (Auto) 0.6 H (0.00-0.4) % Nucleat RBC Rel Count 0.0 (0.00-0.1) % Eos # (Auto) 0 (0-0.5) x10^3/uL Immature Gran # (Auto) 0.09 H (0.00-0.03) x10^3u/L Absolute Lymphs (auto) 1.16 (1.0-4.6) x10^3/uL Absolute Monos (auto) 0.55 (0.0-1.3) x10^3/uL Absolute Nucleated RBC 0.00 (0.00-0.01) x10^3u/L Lymphocytes % 7.2 L (24.0-44.0) % Monocytes % 3.4 (0.0-12.0) % Eosinophils % 0.0 (0.00-5.0) % Basophils % 0.2 (0.0-0.4) % Absolute Granulocytes 14.24 H (1.4-6.9) x10^3/uL Basophils # 0.04 (0-0.4) x10^3/uL PT (9.4-12.5) SECONDS INR (0.8-3.0) APTT (25.1-36.5) SECONDS D-Dimer (0.0-0.50) mg/L Puncture Site pCO2 (35-45) mmHg pO2 (75-100) mmHg pO2/FiO2 Ratio % Base Excess (-2.0-2.0) O2 Saturation (94-100) g/dF ABG pH (7.35-7.45) ABG HCO3 (22-28) ABG O2 Sat (Measured) (95-100) % Kapil Test VBG pH (7.32-7.42) VBG pCO2 at Pat Temp (42-55) mm/Hg VBG pO2 at Pat Temp (25-40) mm/Hg VBG HCO3 (22-28) meq/L VBG O2 Sat ([place]) (95-100) VBG Base Excess (-2.0-2.0) VBG Hemoglobin VBG Carboxyhemoglobin (0.0-6.9) % T HGB A-a Gradient a/A Ratio Hemoglobin Carboxyhemoglobin (0.0-6.9) % THgb Methemoglobin (1.4-1.5) % POC Potassium (3.5-5.1) Temperature C POC O2 Flow Rate % Sodium (137-145) mmol/L Potassium (3.5-5.1) mmol/L Chloride (98-107) mmol/L Carbon Dioxide (22-30) mmol/L Anion Gap (5-15) MEQ/L BUN (9-20) mg/dL Creatinine (0.66-1.25) mg/dL Estimated GFR ML/MIN Glucose (74-106) mg/dL POC Glucometer (74 to 106) mg/dL Hemoglobin A1c (4.5-6.0) % Lactic Acid 4.8 H (0.4-2.0) Calcium (8.4-10.2) mg/dL Ferritin (17.9-464) ng/mL Total Bilirubin (0.2-1.3) mg/dL AST (17-59) U/L ALT (0-50) U/L Alkaline Phosphatase (38-126) U/L Lactate Dehydrogenase (120-246) U/L Troponin I (0.000-0.034) ng/mL Serum Total Protein (6.3-8.2) g/dL Albumin (3.5-5.0) g/dL Lipase (23-300) U/L Urinalys Dipstick Clnc MAIN LAB Urine Color YELLOW (YELLOW) Urine Appearance CLEAR (CLEAR) Urine pH 5.0 (5-6) Ur Specific Adger 1.015 (1.005-1.025) POC Urine Protein Conf 30 A (Negative) Urine Ketones LARGE-80 A (NEGATIVE) Urine Nitrite NEGATIVE (NEGATIVE) Urine Bilirubin MODERATE A (NEGATIVE) Urine Urobilinogen 0.2 (0-1) mg/dL Urine Leukocytes NEGATIVE (NEGATIVE) Urine WBC (Auto) 0-2 (0-5) /HPF Urine RBC (Auto) NONE (0-2) /HPF U Hyaline Cast (Auto) 6-10 A (0-2) /LPF U Epithel Cells (Auto) RARE (FEW) /HPF Urine Bacteria (Auto) NONE (NEGATIVE) /HPF Urine RBC MODERATE A (0-5) Kaden/ul Urine Mucus (Auto) SLIGHT A (NEGATIVE) /HPF Ur Culture Indicated? YES Urine Glucose 500 A (NEGATIVE) mg/dL Influenza Type A Ag (NEGATIVE) Influenza Type B Ag (NEGATIVE) RSV (PCR) (Negative) SARS-CoV-2 (PCR) (NEGATIVE) 07/28/22 07/28/22 07/28/22 Range/Units 15:37 15:37 15:37 WBC (4.0-10.5) x10^3/uL RBC (4.1-5.6) x10^6/uL Hgb (12.5-18.0) g/dL Hct (42-50) % MCV (78-100) fL MCH (26-32) pg MCHC (32-36) g/dL RDW (11.5-14.0) % Plt Count (150-450) x10^3/uL MPV (7.5-11.0) fL Gran % (36.0-66.0) % Immature Gran % (Auto) (0.00-0.4) % Nucleat RBC Rel Count (0.00-0.1) % Eos # (Auto) (0-0.5) x10^3/uL Immature Gran # (Auto) (0.00-0.03) x10^3u/L Absolute Lymphs (auto) (1.0-4.6) x10^3/uL Absolute Monos (auto) (0.0-1.3) x10^3/uL Absolute Nucleated RBC (0.00-0.01) x10^3u/L Lymphocytes % (24.0-44.0) % Monocytes % (0.0-12.0) % Eosinophils % (0.00-5.0) % Basophils % (0.0-0.4) % Absolute Granulocytes (1.4-6.9) x10^3/uL Basophils # (0-0.4) x10^3/uL PT 10.9 (9.4-12.5) SECONDS INR 1.03 (0.8-3.0) APTT 25.6 (25.1-36.5) SECONDS D-Dimer 0.38 (0.0-0.50) mg/L Puncture Site pCO2 (35-45) mmHg pO2 (75-100) mmHg pO2/FiO2 Ratio % Base Excess (-2.0-2.0) O2 Saturation (94-100) g/dF ABG pH (7.35-7.45) ABG HCO3 (22-28) ABG O2 Sat (Measured) (95-100) % Kapil Test VBG pH (7.32-7.42) VBG pCO2 at Pat Temp (42-55) mm/Hg VBG pO2 at Pat Temp (25-40) mm/Hg VBG HCO3 (22-28) meq/L VBG O2 Sat ([place]) (95-100) VBG Base Excess (-2.0-2.0) VBG Hemoglobin VBG Carboxyhemoglobin (0.0-6.9) % T HGB A-a Gradient a/A Ratio Hemoglobin Carboxyhemoglobin (0.0-6.9) % THgb Methemoglobin (1.4-1.5) % POC Potassium (3.5-5.1) Temperature C POC O2 Flow Rate % Sodium 146 H (137-145) mmol/L Potassium 4.1 (3.5-5.1) mmol/L Chloride 104 (98-107) mmol/L Carbon Dioxide 6 L* (22-30) mmol/L Anion Gap 40.6 H (5-15) MEQ/L BUN 39 H (9-20) mg/dL Creatinine 1.90 H (0.66-1.25) mg/dL Estimated GFR 38.9 ML/MIN Glucose 521 H* (74-106) mg/dL POC Glucometer (74 to 106) mg/dL Hemoglobin A1c (4.5-6.0) % Lactic Acid (0.4-2.0) Calcium 10.6 H (8.4-10.2) mg/dL Ferritin (17.9-464) ng/mL Total Bilirubin 0.80 (0.2-1.3) mg/dL AST 24 (17-59) U/L ALT 24 (0-50) U/L Alkaline Phosphatase 154 H (38-126) U/L Lactate Dehydrogenase 201 (120-246) U/L Troponin I < 0.012 (0.000-0.034) ng/mL Serum Total Protein 9.5 H (6.3-8.2) g/dL Albumin 5.5 H (3.5-5.0) g/dL Lipase (23-300) U/L Urinalys Dipstick Clnc Urine Color (YELLOW) Urine Appearance (CLEAR) Urine pH (5-6) Ur Specific Adger (1.005-1.025) POC Urine Protein Conf (Negative) Urine Ketones (NEGATIVE) Urine Nitrite (NEGATIVE) Urine Bilirubin (NEGATIVE) Urine Urobilinogen (0-1) mg/dL Urine Leukocytes (NEGATIVE) Urine WBC (Auto) (0-5) /HPF Urine RBC (Auto) (0-2) /HPF U Hyaline Cast (Auto) (0-2) /LPF U Epithel Cells (Auto) (FEW) /HPF Urine Bacteria (Auto) (NEGATIVE) /HPF Urine RBC (0-5) Kaden/ul Urine Mucus (Auto) (NEGATIVE) /HPF Ur Culture Indicated? Urine Glucose (NEGATIVE) mg/dL Influenza Type A Ag (NEGATIVE) Influenza Type B Ag (NEGATIVE) RSV (PCR) (Negative) SARS-CoV-2 (PCR) (NEGATIVE) 07/28/22 07/28/22 07/28/22 Range/Units 15:37 15:37 15:40 WBC (4.0-10.5) x10^3/uL RBC (4.1-5.6) x10^6/uL Hgb (12.5-18.0) g/dL Hct (42-50) % MCV (78-100) fL MCH (26-32) pg MCHC (32-36) g/dL RDW (11.5-14.0) % Plt Count (150-450) x10^3/uL MPV (7.5-11.0) fL Gran % (36.0-66.0) % Immature Gran % (Auto) (0.00-0.4) % Nucleat RBC Rel Count (0.00-0.1) % Eos # (Auto) (0-0.5) x10^3/uL Immature Gran # (Auto) (0.00-0.03) x10^3u/L Absolute Lymphs (auto) (1.0-4.6) x10^3/uL Absolute Monos (auto) (0.0-1.3) x10^3/uL Absolute Nucleated RBC (0.00-0.01) x10^3u/L Lymphocytes % (24.0-44.0) % Monocytes % (0.0-12.0) % Eosinophils % (0.00-5.0) % Basophils % (0.0-0.4) % Absolute Granulocytes (1.4-6.9) x10^3/uL Basophils # (0-0.4) x10^3/uL PT (9.4-12.5) SECONDS INR (0.8-3.0) APTT (25.1-36.5) SECONDS D-Dimer (0.0-0.50) mg/L Puncture Site pCO2 (35-45) mmHg pO2 (75-100) mmHg pO2/FiO2 Ratio % Base Excess (-2.0-2.0) O2 Saturation (94-100) g/dF ABG pH (7.35-7.45) ABG HCO3 (22-28) ABG O2 Sat (Measured) (95-100) % Kapil Test VBG pH (7.32-7.42) VBG pCO2 at Pat Temp (42-55) mm/Hg VBG pO2 at Pat Temp (25-40) mm/Hg VBG HCO3 (22-28) meq/L VBG O2 Sat ([place]) (95-100) VBG Base Excess (-2.0-2.0) VBG Hemoglobin VBG Carboxyhemoglobin (0.0-6.9) % T HGB A-a Gradient a/A Ratio Hemoglobin Carboxyhemoglobin (0.0-6.9) % THgb Methemoglobin (1.4-1.5) % POC Potassium (3.5-5.1) Temperature C POC O2 Flow Rate % Sodium (137-145) mmol/L Potassium (3.5-5.1) mmol/L Chloride (98-107) mmol/L Carbon Dioxide (22-30) mmol/L Anion Gap (5-15) MEQ/L BUN (9-20) mg/dL Creatinine (0.66-1.25) mg/dL Estimated GFR ML/MIN Glucose (74-106) mg/dL POC Glucometer (74 to 106) mg/dL Hemoglobin A1c (4.5-6.0) % Lactic Acid (0.4-2.0) Calcium (8.4-10.2) mg/dL Ferritin 454 (17.9-464) ng/mL Total Bilirubin (0.2-1.3) mg/dL AST (17-59) U/L ALT (0-50) U/L Alkaline Phosphatase (38-126) U/L Lactate Dehydrogenase (120-246) U/L Troponin I (0.000-0.034) ng/mL Serum Total Protein (6.3-8.2) g/dL Albumin (3.5-5.0) g/dL Lipase 31 (23-300) U/L Urinalys Dipstick Clnc Urine Color (YELLOW) Urine Appearance (CLEAR) Urine pH (5-6) Ur Specific Adger (1.005-1.025) POC Urine Protein Conf (Negative) Urine Ketones (NEGATIVE) Urine Nitrite (NEGATIVE) Urine Bilirubin (NEGATIVE) Urine Urobilinogen (0-1) mg/dL Urine Leukocytes (NEGATIVE) Urine WBC (Auto) (0-5) /HPF Urine RBC (Auto) (0-2) /HPF U Hyaline Cast (Auto) (0-2) /LPF U Epithel Cells (Auto) (FEW) /HPF Urine Bacteria (Auto) (NEGATIVE) /HPF Urine RBC (0-5) Kaden/ul Urine Mucus (Auto) (NEGATIVE) /HPF Ur Culture Indicated? Urine Glucose (NEGATIVE) mg/dL Influenza Type A Ag NEGATIVE (NEGATIVE) Influenza Type B Ag NEGATIVE (NEGATIVE) RSV (PCR) NEGATIVE (Negative) SARS-CoV-2 (PCR) POSITIVE A (NEGATIVE) 07/28/22 07/28/22 07/28/22 Range/Units 16:36 19:16 19:20 WBC (4.0-10.5) x10^3/uL RBC (4.1-5.6) x10^6/uL Hgb (12.5-18.0) g/dL Hct (42-50) % MCV (78-100) fL MCH (26-32) pg MCHC (32-36) g/dL RDW (11.5-14.0) % Plt Count (150-450) x10^3/uL MPV (7.5-11.0) fL Gran % (36.0-66.0) % Immature Gran % (Auto) (0.00-0.4) % Nucleat RBC Rel Count (0.00-0.1) % Eos # (Auto) (0-0.5) x10^3/uL Immature Gran # (Auto) (0.00-0.03) x10^3u/L Absolute Lymphs (auto) (1.0-4.6) x10^3/uL Absolute Monos (auto) (0.0-1.3) x10^3/uL Absolute Nucleated RBC (0.00-0.01) x10^3u/L Lymphocytes % (24.0-44.0) % Monocytes % (0.0-12.0) % Eosinophils % (0.00-5.0) % Basophils % (0.0-0.4) % Absolute Granulocytes (1.4-6.9) x10^3/uL Basophils # (0-0.4) x10^3/uL PT (9.4-12.5) SECONDS INR (0.8-3.0) APTT (25.1-36.5) SECONDS D-Dimer (0.0-0.50) mg/L Puncture Site pCO2 (35-45) mmHg pO2 (75-100) mmHg pO2/FiO2 Ratio 21.0 % Base Excess (-2.0-2.0) O2 Saturation (94-100) g/dF ABG pH (7.35-7.45) ABG HCO3 (22-28) ABG O2 Sat (Measured) (95-100) % Kapil Test VBG pH 7.13 L* (7.32-7.42) VBG pCO2 at Pat Temp 23 L* (42-55) mm/Hg VBG pO2 at Pat Temp 57 H (25-40) mm/Hg VBG HCO3 7.7 L* (22-28) meq/L VBG O2 Sat ([place]) 90.6 L (95-100) VBG Base Excess -19.5 L (-2.0-2.0) VBG Hemoglobin 18.4 VBG Carboxyhemoglobin 3.0 (0.0-6.9) % T HGB A-a Gradient a/A Ratio Hemoglobin Carboxyhemoglobin (0.0-6.9) % THgb Methemoglobin (1.4-1.5) % POC Potassium 4.2 (3.5-5.1) Temperature C POC O2 Flow Rate % Sodium (137-145) mmol/L Potassium (3.5-5.1) mmol/L Chloride (98-107) mmol/L Carbon Dioxide (22-30) mmol/L Anion Gap (5-15) MEQ/L BUN (9-20) mg/dL Creatinine (0.66-1.25) mg/dL Estimated GFR ML/MIN Glucose (74-106) mg/dL POC Glucometer 420 H (74 to 106) mg/dL Hemoglobin A1c (4.5-6.0) % Lactic Acid (0.4-2.0) Calcium (8.4-10.2) mg/dL Ferritin (17.9-464) ng/mL Total Bilirubin (0.2-1.3) mg/dL AST (17-59) U/L ALT (0-50) U/L Alkaline Phosphatase (38-126) U/L Lactate Dehydrogenase (120-246) U/L Troponin I < 0.012 (0.000-0.034) ng/mL Serum Total Protein (6.3-8.2) g/dL Albumin (3.5-5.0) g/dL Lipase (23-300) U/L Urinalys Dipstick Clnc Urine Color (YELLOW) Urine Appearance (CLEAR) Urine pH (5-6) Ur Specific Adger (1.005-1.025) POC Urine Protein Conf (Negative) Urine Ketones (NEGATIVE) Urine Nitrite (NEGATIVE) Urine Bilirubin (NEGATIVE) Urine Urobilinogen (0-1) mg/dL Urine Leukocytes (NEGATIVE) Urine WBC (Auto) (0-5) /HPF Urine RBC (Auto) (0-2) /HPF U Hyaline Cast (Auto) (0-2) /LPF U Epithel Cells (Auto) (FEW) /HPF Urine Bacteria (Auto) (NEGATIVE) /HPF Urine RBC (0-5) Kaden/ul Urine Mucus (Auto) (NEGATIVE) /HPF Ur Culture Indicated? Urine Glucose (NEGATIVE) mg/dL Influenza Type A Ag (NEGATIVE) Influenza Type B Ag (NEGATIVE) RSV (PCR) (Negative) SARS-CoV-2 (PCR) (NEGATIVE) 07/28/22 07/28/22 07/28/22 Range/Units 19:24 21:24 23:05 WBC (4.0-10.5) x10^3/uL RBC (4.1-5.6) x10^6/uL Hgb (12.5-18.0) g/dL Hct (42-50) % MCV (78-100) fL MCH (26-32) pg MCHC (32-36) g/dL RDW (11.5-14.0) % Plt Count (150-450) x10^3/uL MPV (7.5-11.0) fL Gran % (36.0-66.0) % Immature Gran % (Auto) (0.00-0.4) % Nucleat RBC Rel Count (0.00-0.1) % Eos # (Auto) (0-0.5) x10^3/uL Immature Gran # (Auto) (0.00-0.03) x10^3u/L Absolute Lymphs (auto) (1.0-4.6) x10^3/uL Absolute Monos (auto) (0.0-1.3) x10^3/uL Absolute Nucleated RBC (0.00-0.01) x10^3u/L Lymphocytes % (24.0-44.0) % Monocytes % (0.0-12.0) % Eosinophils % (0.00-5.0) % Basophils % (0.0-0.4) % Absolute Granulocytes (1.4-6.9) x10^3/uL Basophils # (0-0.4) x10^3/uL PT (9.4-12.5) SECONDS INR (0.8-3.0) APTT (25.1-36.5) SECONDS D-Dimer (0.0-0.50) mg/L Puncture Site pCO2 (35-45) mmHg pO2 (75-100) mmHg pO2/FiO2 Ratio % Base Excess (-2.0-2.0) O2 Saturation (94-100) g/dF ABG pH (7.35-7.45) ABG HCO3 (22-28) ABG O2 Sat (Measured) (95-100) % Kapil Test VBG pH (7.32-7.42) VBG pCO2 at Pat Temp (42-55) mm/Hg VBG pO2 at Pat Temp (25-40) mm/Hg VBG HCO3 (22-28) meq/L VBG O2 Sat ([place]) (95-100) VBG Base Excess (-2.0-2.0) VBG Hemoglobin VBG Carboxyhemoglobin (0.0-6.9) % T HGB A-a Gradient a/A Ratio Hemoglobin Carboxyhemoglobin (0.0-6.9) % THgb Methemoglobin (1.4-1.5) % POC Potassium (3.5-5.1) Temperature C POC O2 Flow Rate % Sodium (137-145) mmol/L Potassium (3.5-5.1) mmol/L Chloride (98-107) mmol/L Carbon Dioxide (22-30) mmol/L Anion Gap (5-15) MEQ/L BUN (9-20) mg/dL Creatinine (0.66-1.25) mg/dL Estimated GFR ML/MIN Glucose (74-106) mg/dL POC Glucometer 262 H 189 H (74 to 106) mg/dL Hemoglobin A1c (4.5-6.0) % Lactic Acid 3.9 H (0.4-2.0) Calcium (8.4-10.2) mg/dL Ferritin (17.9-464) ng/mL Total Bilirubin (0.2-1.3) mg/dL AST (17-59) U/L ALT (0-50) U/L Alkaline Phosphatase (38-126) U/L Lactate Dehydrogenase (120-246) U/L Troponin I (0.000-0.034) ng/mL Serum Total Protein (6.3-8.2) g/dL Albumin (3.5-5.0) g/dL Lipase (23-300) U/L Urinalys Dipstick Clnc Urine Color (YELLOW) Urine Appearance (CLEAR) Urine pH (5-6) Ur Specific Adger (1.005-1.025) POC Urine Protein Conf (Negative) Urine Ketones (NEGATIVE) Urine Nitrite (NEGATIVE) Urine Bilirubin (NEGATIVE) Urine Urobilinogen (0-1) mg/dL Urine Leukocytes (NEGATIVE) Urine WBC (Auto) (0-5) /HPF Urine RBC (Auto) (0-2) /HPF U Hyaline Cast (Auto) (0-2) /LPF U Epithel Cells (Auto) (FEW) /HPF Urine Bacteria (Auto) (NEGATIVE) /HPF Urine RBC (0-5) Kaden/ul Urine Mucus (Auto) (NEGATIVE) /HPF Ur Culture Indicated? Urine Glucose (NEGATIVE) mg/dL Influenza Type A Ag (NEGATIVE) Influenza Type B Ag (NEGATIVE) RSV (PCR) (Negative) SARS-CoV-2 (PCR) (NEGATIVE) 07/28/22 07/28/22 07/28/22 Range/Units 23:35 23:35 23:38 WBC (4.0-10.5) x10^3/uL RBC (4.1-5.6) x10^6/uL Hgb (12.5-18.0) g/dL Hct (42-50) % MCV (78-100) fL MCH (26-32) pg MCHC (32-36) g/dL RDW (11.5-14.0) % Plt Count (150-450) x10^3/uL MPV (7.5-11.0) fL Gran % (36.0-66.0) % Immature Gran % (Auto) (0.00-0.4) % Nucleat RBC Rel Count (0.00-0.1) % Eos # (Auto) (0-0.5) x10^3/uL Immature Gran # (Auto) (0.00-0.03) x10^3u/L Absolute Lymphs (auto) (1.0-4.6) x10^3/uL Absolute Monos (auto) (0.0-1.3) x10^3/uL Absolute Nucleated RBC (0.00-0.01) x10^3u/L Lymphocytes % (24.0-44.0) % Monocytes % (0.0-12.0) % Eosinophils % (0.00-5.0) % Basophils % (0.0-0.4) % Absolute Granulocytes (1.4-6.9) x10^3/uL Basophils # (0-0.4) x10^3/uL PT (9.4-12.5) SECONDS INR (0.8-3.0) APTT (25.1-36.5) SECONDS D-Dimer (0.0-0.50) mg/L Puncture Site RIGHT RADIAL pCO2 21 L (35-45) mmHg pO2 140 H* (75-100) mmHg pO2/FiO2 Ratio % Base Excess -9.5 L (-2.0-2.0) O2 Saturation 95.5 (94-100) g/dF ABG pH 7.39 (7.35-7.45) ABG HCO3 12.7 L* (22-28) ABG O2 Sat (Measured) 98.4 (95-100) % Kapil Test YES VBG pH (7.32-7.42) VBG pCO2 at Pat Temp (42-55) mm/Hg VBG pO2 at Pat Temp (25-40) mm/Hg VBG HCO3 (22-28) meq/L VBG O2 Sat ([place]) (95-100) VBG Base Excess (-2.0-2.0) VBG Hemoglobin VBG Carboxyhemoglobin (0.0-6.9) % T HGB A-a Gradient -17 a/A Ratio 1.14 Hemoglobin 16.8 Carboxyhemoglobin 2.1 (0.0-6.9) % THgb Methemoglobin 0.8 L (1.4-1.5) % POC Potassium (3.5-5.1) Temperature 37.0 C POC O2 Flow Rate 21 % Sodium 147 H (137-145) mmol/L Potassium 3.3 L 3.4 L (3.5-5.1) mmol/L Chloride 116 H (98-107) mmol/L Carbon Dioxide 14 L* (22-30) mmol/L Anion Gap 22.0 H (5-15) MEQ/L BUN 56 H (9-20) mg/dL Creatinine 1.67 H (0.66-1.25) mg/dL Estimated GFR 45.1 ML/MIN Glucose 187 H (74-106) mg/dL POC Glucometer (74 to 106) mg/dL Hemoglobin A1c (4.5-6.0) % Lactic Acid (0.4-2.0) Calcium 9.8 (8.4-10.2) mg/dL Ferritin (17.9-464) ng/mL Total Bilirubin (0.2-1.3) mg/dL AST (17-59) U/L ALT (0-50) U/L Alkaline Phosphatase (38-126) U/L Lactate Dehydrogenase (120-246) U/L Troponin I < 0.012 (0.000-0.034) ng/mL Serum Total Protein (6.3-8.2) g/dL Albumin (3.5-5.0) g/dL Lipase (23-300) U/L Urinalys Dipstick Clnc Urine Color (YELLOW) Urine Appearance (CLEAR) Urine pH (5-6) Ur Specific Adger (1.005-1.025) POC Urine Protein Conf (Negative) Urine Ketones (NEGATIVE) Urine Nitrite (NEGATIVE) Urine Bilirubin (NEGATIVE) Urine Urobilinogen (0-1) mg/dL Urine Leukocytes (NEGATIVE) Urine WBC (Auto) (0-5) /HPF Urine RBC (Auto) (0-2) /HPF U Hyaline Cast (Auto) (0-2) /LPF U Epithel Cells (Auto) (FEW) /HPF Urine Bacteria (Auto) (NEGATIVE) /HPF Urine RBC (0-5) Kaden/ul Urine Mucus (Auto) (NEGATIVE) /HPF Ur Culture Indicated? Urine Glucose (NEGATIVE) mg/dL Influenza Type A Ag (NEGATIVE) Influenza Type B Ag (NEGATIVE) RSV (PCR) (Negative) SARS-CoV-2 (PCR) (NEGATIVE) 07/29/22 07/29/22 07/29/22 Range/Units 00:02 01:05 02:01 WBC (4.0-10.5) x10^3/uL RBC (4.1-5.6) x10^6/uL Hgb (12.5-18.0) g/dL Hct (42-50) % MCV (78-100) fL MCH (26-32) pg MCHC (32-36) g/dL RDW (11.5-14.0) % Plt Count (150-450) x10^3/uL MPV (7.5-11.0) fL Gran % (36.0-66.0) % Immature Gran % (Auto) (0.00-0.4) % Nucleat RBC Rel Count (0.00-0.1) % Eos # (Auto) (0-0.5) x10^3/uL Immature Gran # (Auto) (0.00-0.03) x10^3u/L Absolute Lymphs (auto) (1.0-4.6) x10^3/uL Absolute Monos (auto) (0.0-1.3) x10^3/uL Absolute Nucleated RBC (0.00-0.01) x10^3u/L Lymphocytes % (24.0-44.0) % Monocytes % (0.0-12.0) % Eosinophils % (0.00-5.0) % Basophils % (0.0-0.4) % Absolute Granulocytes (1.4-6.9) x10^3/uL Basophils # (0-0.4) x10^3/uL PT (9.4-12.5) SECONDS INR (0.8-3.0) APTT (25.1-36.5) SECONDS D-Dimer (0.0-0.50) mg/L Puncture Site pCO2 (35-45) mmHg pO2 (75-100) mmHg pO2/FiO2 Ratio % Base Excess (-2.0-2.0) O2 Saturation (94-100) g/dF ABG pH (7.35-7.45) ABG HCO3 (22-28) ABG O2 Sat (Measured) (95-100) % Kapil Test VBG pH (7.32-7.42) VBG pCO2 at Pat Temp (42-55) mm/Hg VBG pO2 at Pat Temp (25-40) mm/Hg VBG HCO3 (22-28) meq/L VBG O2 Sat ([place]) (95-100) VBG Base Excess (-2.0-2.0) VBG Hemoglobin VBG Carboxyhemoglobin (0.0-6.9) % T HGB A-a Gradient a/A Ratio Hemoglobin Carboxyhemoglobin (0.0-6.9) % THgb Methemoglobin (1.4-1.5) % POC Potassium (3.5-5.1) Temperature C POC O2 Flow Rate % Sodium (137-145) mmol/L Potassium (3.5-5.1) mmol/L Chloride (98-107) mmol/L Carbon Dioxide (22-30) mmol/L Anion Gap (5-15) MEQ/L BUN (9-20) mg/dL Creatinine (0.66-1.25) mg/dL Estimated GFR ML/MIN Glucose (74-106) mg/dL POC Glucometer 164 H 174 H 97 (74 to 106) mg/dL Hemoglobin A1c (4.5-6.0) % Lactic Acid (0.4-2.0) Calcium (8.4-10.2) mg/dL Ferritin (17.9-464) ng/mL Total Bilirubin (0.2-1.3) mg/dL AST (17-59) U/L ALT (0-50) U/L Alkaline Phosphatase (38-126) U/L Lactate Dehydrogenase (120-246) U/L Troponin I (0.000-0.034) ng/mL Serum Total Protein (6.3-8.2) g/dL Albumin (3.5-5.0) g/dL Lipase (23-300) U/L Urinalys Dipstick Clnc Urine Color (YELLOW) Urine Appearance (CLEAR) Urine pH (5-6) Ur Specific Adger (1.005-1.025) POC Urine Protein Conf (Negative) Urine Ketones (NEGATIVE) Urine Nitrite (NEGATIVE) Urine Bilirubin (NEGATIVE) Urine Urobilinogen (0-1) mg/dL Urine Leukocytes (NEGATIVE) Urine WBC (Auto) (0-5) /HPF Urine RBC (Auto) (0-2) /HPF U Hyaline Cast (Auto) (0-2) /LPF U Epithel Cells (Auto) (FEW) /HPF Urine Bacteria (Auto) (NEGATIVE) /HPF Urine RBC (0-5) Kaden/ul Urine Mucus (Auto) (NEGATIVE) /HPF Ur Culture Indicated? Urine Glucose (NEGATIVE) mg/dL Influenza Type A Ag (NEGATIVE) Influenza Type B Ag (NEGATIVE) RSV (PCR) (Negative) SARS-CoV-2 (PCR) (NEGATIVE) 07/29/22 07/29/22 07/29/22 Range/Units 03:01 03:20 03:29 WBC (4.0-10.5) x10^3/uL RBC (4.1-5.6) x10^6/uL Hgb (12.5-18.0) g/dL Hct (42-50) % MCV (78-100) fL MCH (26-32) pg MCHC (32-36) g/dL RDW (11.5-14.0) % Plt Count (150-450) x10^3/uL MPV (7.5-11.0) fL Gran % (36.0-66.0) % Immature Gran % (Auto) (0.00-0.4) % Nucleat RBC Rel Count (0.00-0.1) % Eos # (Auto) (0-0.5) x10^3/uL Immature Gran # (Auto) (0.00-0.03) x10^3u/L Absolute Lymphs (auto) (1.0-4.6) x10^3/uL Absolute Monos (auto) (0.0-1.3) x10^3/uL Absolute Nucleated RBC (0.00-0.01) x10^3u/L Lymphocytes % (24.0-44.0) % Monocytes % (0.0-12.0) % Eosinophils % (0.00-5.0) % Basophils % (0.0-0.4) % Absolute Granulocytes (1.4-6.9) x10^3/uL Basophils # (0-0.4) x10^3/uL PT (9.4-12.5) SECONDS INR (0.8-3.0) APTT (25.1-36.5) SECONDS D-Dimer (0.0-0.50) mg/L Puncture Site RIGHT RADIAL pCO2 27 L (35-45) mmHg pO2 104 H (75-100) mmHg pO2/FiO2 Ratio % Base Excess -6.5 L (-2.0-2.0) O2 Saturation 95.5 (94-100) g/dF ABG pH 7.40 (7.35-7.45) ABG HCO3 16.7 L* (22-28) ABG O2 Sat (Measured) 98.7 (95-100) % Kapil Test YES VBG pH (7.32-7.42) VBG pCO2 at Pat Temp (42-55) mm/Hg VBG pO2 at Pat Temp (25-40) mm/Hg VBG HCO3 (22-28) meq/L VBG O2 Sat ([place]) (95-100) VBG Base Excess (-2.0-2.0) VBG Hemoglobin VBG Carboxyhemoglobin (0.0-6.9) % T HGB A-a Gradient 12 a/A Ratio 0.90 Hemoglobin 14.4 Carboxyhemoglobin 2.5 (0.0-6.9) % THgb Methemoglobin 0.7 L (1.4-1.5) % POC Potassium (3.5-5.1) Temperature 37.0 C POC O2 Flow Rate 21 % Sodium 143 (137-145) mmol/L Potassium 3.8 4.1 (3.5-5.1) mmol/L Chloride 117 H (98-107) mmol/L Carbon Dioxide 18 L (22-30) mmol/L Anion Gap 11.9 (5-15) MEQ/L BUN 47 H (9-20) mg/dL Creatinine 1.31 H (0.66-1.25) mg/dL Estimated GFR 59.7 ML/MIN Glucose 168 H (74-106) mg/dL POC Glucometer 131 H (74 to 106) mg/dL Hemoglobin A1c (4.5-6.0) % Lactic Acid (0.4-2.0) Calcium 8.3 L D (8.4-10.2) mg/dL Ferritin (17.9-464) ng/mL Total Bilirubin (0.2-1.3) mg/dL AST (17-59) U/L ALT (0-50) U/L Alkaline Phosphatase (38-126) U/L Lactate Dehydrogenase (120-246) U/L Troponin I (0.000-0.034) ng/mL Serum Total Protein (6.3-8.2) g/dL Albumin (3.5-5.0) g/dL Lipase (23-300) U/L Urinalys Dipstick Clnc Urine Color (YELLOW) Urine Appearance (CLEAR) Urine pH (5-6) Ur Specific Adger (1.005-1.025) POC Urine Protein Conf (Negative) Urine Ketones (NEGATIVE) Urine Nitrite (NEGATIVE) Urine Bilirubin (NEGATIVE) Urine Urobilinogen (0-1) mg/dL Urine Leukocytes (NEGATIVE) Urine WBC (Auto) (0-5) /HPF Urine RBC (Auto) (0-2) /HPF U Hyaline Cast (Auto) (0-2) /LPF U Epithel Cells (Auto) (FEW) /HPF Urine Bacteria (Auto) (NEGATIVE) /HPF Urine RBC (0-5) Kaden/ul Urine Mucus (Auto) (NEGATIVE) /HPF Ur Culture Indicated? Urine Glucose (NEGATIVE) mg/dL Influenza Type A Ag (NEGATIVE) Influenza Type B Ag (NEGATIVE) RSV (PCR) (Negative) SARS-CoV-2 (PCR) (NEGATIVE) 07/29/22 07/29/22 07/29/22 Range/Units 04:00 04:30 05:03 WBC 14.5 H (4.0-10.5) x10^3/uL RBC 4.77 (4.1-5.6) x10^6/uL Hgb 14.2 D (12.5-18.0) g/dL Hct 42.4 (42-50) % MCV 88.9 (78-100) fL MCH 29.8 (26-32) pg MCHC 33.5 (32-36) g/dL RDW 13.2 (11.5-14.0) % Plt Count 262 (150-450) x10^3/uL MPV 9.6 (7.5-11.0) fL Gran % (36.0-66.0) % Immature Gran % (Auto) (0.00-0.4) % Nucleat RBC Rel Count (0.00-0.1) % Eos # (Auto) (0-0.5) x10^3/uL Immature Gran # (Auto) (0.00-0.03) x10^3u/L Absolute Lymphs (auto) (1.0-4.6) x10^3/uL Absolute Monos (auto) (0.0-1.3) x10^3/uL Absolute Nucleated RBC (0.00-0.01) x10^3u/L Lymphocytes % (24.0-44.0) % Monocytes % (0.0-12.0) % Eosinophils % (0.00-5.0) % Basophils % (0.0-0.4) % Absolute Granulocytes (1.4-6.9) x10^3/uL Basophils # (0-0.4) x10^3/uL PT (9.4-12.5) SECONDS INR (0.8-3.0) APTT (25.1-36.5) SECONDS D-Dimer (0.0-0.50) mg/L Puncture Site pCO2 (35-45) mmHg pO2 (75-100) mmHg pO2/FiO2 Ratio % Base Excess (-2.0-2.0) O2 Saturation (94-100) g/dF ABG pH (7.35-7.45) ABG HCO3 (22-28) ABG O2 Sat (Measured) (95-100) % Kapil Test VBG pH (7.32-7.42) VBG pCO2 at Pat Temp (42-55) mm/Hg VBG pO2 at Pat Temp (25-40) mm/Hg VBG HCO3 (22-28) meq/L VBG O2 Sat ([place]) (95-100) VBG Base Excess (-2.0-2.0) VBG Hemoglobin VBG Carboxyhemoglobin (0.0-6.9) % T HGB A-a Gradient a/A Ratio Hemoglobin Carboxyhemoglobin (0.0-6.9) % THgb Methemoglobin (1.4-1.5) % POC Potassium (3.5-5.1) Temperature C POC O2 Flow Rate % Sodium (137-145) mmol/L Potassium (3.5-5.1) mmol/L Chloride (98-107) mmol/L Carbon Dioxide (22-30) mmol/L Anion Gap (5-15) MEQ/L BUN (9-20) mg/dL Creatinine (0.66-1.25) mg/dL Estimated GFR ML/MIN Glucose (74-106) mg/dL POC Glucometer 173 H 158 H (74 to 106) mg/dL Hemoglobin A1c (4.5-6.0) % Lactic Acid (0.4-2.0) Calcium (8.4-10.2) mg/dL Ferritin (17.9-464) ng/mL Total Bilirubin (0.2-1.3) mg/dL AST (17-59) U/L ALT (0-50) U/L Alkaline Phosphatase (38-126) U/L Lactate Dehydrogenase (120-246) U/L Troponin I (0.000-0.034) ng/mL Serum Total Protein (6.3-8.2) g/dL Albumin (3.5-5.0) g/dL Lipase (23-300) U/L Urinalys Dipstick Clnc Urine Color (YELLOW) Urine Appearance (CLEAR) Urine pH (5-6) Ur Specific Adger (1.005-1.025) POC Urine Protein Conf (Negative) Urine Ketones (NEGATIVE) Urine Nitrite (NEGATIVE) Urine Bilirubin (NEGATIVE) Urine Urobilinogen (0-1) mg/dL Urine Leukocytes (NEGATIVE) Urine WBC (Auto) (0-5) /HPF Urine RBC (Auto) (0-2) /HPF U Hyaline Cast (Auto) (0-2) /LPF U Epithel Cells (Auto) (FEW) /HPF Urine Bacteria (Auto) (NEGATIVE) /HPF Urine RBC (0-5) Kaden/ul Urine Mucus (Auto) (NEGATIVE) /HPF Ur Culture Indicated? Urine Glucose (NEGATIVE) mg/dL Influenza Type A Ag (NEGATIVE) Influenza Type B Ag (NEGATIVE) RSV (PCR) (Negative) SARS-CoV-2 (PCR) (NEGATIVE) 07/29/22 07/29/22 07/29/22 Range/Units 06:00 06:02 06:56 WBC (4.0-10.5) x10^3/uL RBC (4.1-5.6) x10^6/uL Hgb (12.5-18.0) g/dL Hct (42-50) % MCV (78-100) fL MCH (26-32) pg MCHC (32-36) g/dL RDW (11.5-14.0) % Plt Count (150-450) x10^3/uL MPV (7.5-11.0) fL Gran % (36.0-66.0) % Immature Gran % (Auto) (0.00-0.4) % Nucleat RBC Rel Count (0.00-0.1) % Eos # (Auto) (0-0.5) x10^3/uL Immature Gran # (Auto) (0.00-0.03) x10^3u/L Absolute Lymphs (auto) (1.0-4.6) x10^3/uL Absolute Monos (auto) (0.0-1.3) x10^3/uL Absolute Nucleated RBC (0.00-0.01) x10^3u/L Lymphocytes % (24.0-44.0) % Monocytes % (0.0-12.0) % Eosinophils % (0.00-5.0) % Basophils % (0.0-0.4) % Absolute Granulocytes (1.4-6.9) x10^3/uL Basophils # (0-0.4) x10^3/uL PT (9.4-12.5) SECONDS INR (0.8-3.0) APTT (25.1-36.5) SECONDS D-Dimer (0.0-0.50) mg/L Puncture Site pCO2 (35-45) mmHg pO2 (75-100) mmHg pO2/FiO2 Ratio % Base Excess (-2.0-2.0) O2 Saturation (94-100) g/dF ABG pH (7.35-7.45) ABG HCO3 (22-28) ABG O2 Sat (Measured) (95-100) % Kapil Test VBG pH (7.32-7.42) VBG pCO2 at Pat Temp (42-55) mm/Hg VBG pO2 at Pat Temp (25-40) mm/Hg VBG HCO3 (22-28) meq/L VBG O2 Sat ([place]) (95-100) VBG Base Excess (-2.0-2.0) VBG Hemoglobin VBG Carboxyhemoglobin (0.0-6.9) % T HGB A-a Gradient a/A Ratio Hemoglobin Carboxyhemoglobin (0.0-6.9) % THgb Methemoglobin (1.4-1.5) % POC Potassium (3.5-5.1) Temperature C POC O2 Flow Rate % Sodium (137-145) mmol/L Potassium (3.5-5.1) mmol/L Chloride (98-107) mmol/L Carbon Dioxide (22-30) mmol/L Anion Gap (5-15) MEQ/L BUN (9-20) mg/dL Creatinine (0.66-1.25) mg/dL Estimated GFR ML/MIN Glucose (74-106) mg/dL POC Glucometer 232 H 239 H (74 to 106) mg/dL Hemoglobin A1c 12.68 H (4.5-6.0) % Lactic Acid (0.4-2.0) Calcium (8.4-10.2) mg/dL Ferritin (17.9-464) ng/mL Total Bilirubin (0.2-1.3) mg/dL AST (17-59) U/L ALT (0-50) U/L Alkaline Phosphatase (38-126) U/L Lactate Dehydrogenase (120-246) U/L Troponin I (0.000-0.034) ng/mL Serum Total Protein (6.3-8.2) g/dL Albumin (3.5-5.0) g/dL Lipase (23-300) U/L Urinalys Dipstick Clnc Urine Color (YELLOW) Urine Appearance (CLEAR) Urine pH (5-6) Ur Specific Adger (1.005-1.025) POC Urine Protein Conf (Negative) Urine Ketones (NEGATIVE) Urine Nitrite (NEGATIVE) Urine Bilirubin (NEGATIVE) Urine Urobilinogen (0-1) mg/dL Urine Leukocytes (NEGATIVE) Urine WBC (Auto) (0-5) /HPF Urine RBC (Auto) (0-2) /HPF U Hyaline Cast (Auto) (0-2) /LPF U Epithel Cells (Auto) (FEW) /HPF Urine Bacteria (Auto) (NEGATIVE) /HPF Urine RBC (0-5) Kaden/ul Urine Mucus (Auto) (NEGATIVE) /HPF Ur Culture Indicated? Urine Glucose (NEGATIVE) mg/dL Influenza Type A Ag (NEGATIVE) Influenza Type B Ag (NEGATIVE) RSV (PCR) (Negative) SARS-CoV-2 (PCR) (NEGATIVE) 07/29/22 07/29/22 07/29/22 Range/Units 06:58 07:43 09:05 WBC (4.0-10.5) x10^3/uL RBC (4.1-5.6) x10^6/uL Hgb (12.5-18.0) g/dL Hct (42-50) % MCV (78-100) fL MCH (26-32) pg MCHC (32-36) g/dL RDW (11.5-14.0) % Plt Count (150-450) x10^3/uL MPV (7.5-11.0) fL Gran % (36.0-66.0) % Immature Gran % (Auto) (0.00-0.4) % Nucleat RBC Rel Count (0.00-0.1) % Eos # (Auto) (0-0.5) x10^3/uL Immature Gran # (Auto) (0.00-0.03) x10^3u/L Absolute Lymphs (auto) (1.0-4.6) x10^3/uL Absolute Monos (auto) (0.0-1.3) x10^3/uL Absolute Nucleated RBC (0.00-0.01) x10^3u/L Lymphocytes % (24.0-44.0) % Monocytes % (0.0-12.0) % Eosinophils % (0.00-5.0) % Basophils % (0.0-0.4) % Absolute Granulocytes (1.4-6.9) x10^3/uL Basophils # (0-0.4) x10^3/uL PT (9.4-12.5) SECONDS INR (0.8-3.0) APTT (25.1-36.5) SECONDS D-Dimer (0.0-0.50) mg/L Puncture Site pCO2 (35-45) mmHg pO2 (75-100) mmHg pO2/FiO2 Ratio % Base Excess (-2.0-2.0) O2 Saturation (94-100) g/dF ABG pH (7.35-7.45) ABG HCO3 (22-28) ABG O2 Sat (Measured) (95-100) % Kapil Test VBG pH (7.32-7.42) VBG pCO2 at Pat Temp (42-55) mm/Hg VBG pO2 at Pat Temp (25-40) mm/Hg VBG HCO3 (22-28) meq/L VBG O2 Sat ([place]) (95-100) VBG Base Excess (-2.0-2.0) VBG Hemoglobin VBG Carboxyhemoglobin (0.0-6.9) % T HGB A-a Gradient a/A Ratio Hemoglobin Carboxyhemoglobin (0.0-6.9) % THgb Methemoglobin (1.4-1.5) % POC Potassium (3.5-5.1) Temperature C POC O2 Flow Rate % Sodium 140 (137-145) mmol/L Potassium 3.7 (3.5-5.1) mmol/L Chloride 114 H (98-107) mmol/L Carbon Dioxide 14 L* (22-30) mmol/L Anion Gap 14.7 (5-15) MEQ/L BUN 40 H (9-20) mg/dL Creatinine 1.18 (0.66-1.25) mg/dL Estimated GFR > 60.0 ML/MIN Glucose 252 H (74-106) mg/dL POC Glucometer 202 H 182 H (74 to 106) mg/dL Hemoglobin A1c (4.5-6.0) % Lactic Acid (0.4-2.0) Calcium 8.2 L (8.4-10.2) mg/dL Ferritin (17.9-464) ng/mL Total Bilirubin (0.2-1.3) mg/dL AST (17-59) U/L ALT (0-50) U/L Alkaline Phosphatase (38-126) U/L Lactate Dehydrogenase (120-246) U/L Troponin I (0.000-0.034) ng/mL Serum Total Protein (6.3-8.2) g/dL Albumin (3.5-5.0) g/dL Lipase (23-300) U/L Urinalys Dipstick Clnc Urine Color (YELLOW) Urine Appearance (CLEAR) Urine pH (5-6) Ur Specific Adger (1.005-1.025) POC Urine Protein Conf (Negative) Urine Ketones (NEGATIVE) Urine Nitrite (NEGATIVE) Urine Bilirubin (NEGATIVE) Urine Urobilinogen (0-1) mg/dL Urine Leukocytes (NEGATIVE) Urine WBC (Auto) (0-5) /HPF Urine RBC (Auto) (0-2) /HPF U Hyaline Cast (Auto) (0-2) /LPF U Epithel Cells (Auto) (FEW) /HPF Urine Bacteria (Auto) (NEGATIVE) /HPF Urine RBC (0-5) Kaden/ul Urine Mucus (Auto) (NEGATIVE) /HPF Ur Culture Indicated? Urine Glucose (NEGATIVE) mg/dL Influenza Type A Ag (NEGATIVE) Influenza Type B Ag (NEGATIVE) RSV (PCR) (Negative) SARS-CoV-2 (PCR) (NEGATIVE) 07/29/22 07/29/22 07/29/22 Range/Units 10:00 11:00 11:00 WBC (4.0-10.5) x10^3/uL RBC (4.1-5.6) x10^6/uL Hgb (12.5-18.0) g/dL Hct (42-50) % MCV (78-100) fL MCH (26-32) pg MCHC (32-36) g/dL RDW (11.5-14.0) % Plt Count (150-450) x10^3/uL MPV (7.5-11.0) fL Gran % (36.0-66.0) % Immature Gran % (Auto) (0.00-0.4) % Nucleat RBC Rel Count (0.00-0.1) % Eos # (Auto) (0-0.5) x10^3/uL Immature Gran # (Auto) (0.00-0.03) x10^3u/L Absolute Lymphs (auto) (1.0-4.6) x10^3/uL Absolute Monos (auto) (0.0-1.3) x10^3/uL Absolute Nucleated RBC (0.00-0.01) x10^3u/L Lymphocytes % (24.0-44.0) % Monocytes % (0.0-12.0) % Eosinophils % (0.00-5.0) % Basophils % (0.0-0.4) % Absolute Granulocytes (1.4-6.9) x10^3/uL Basophils # (0-0.4) x10^3/uL PT (9.4-12.5) SECONDS INR (0.8-3.0) APTT (25.1-36.5) SECONDS D-Dimer (0.0-0.50) mg/L Puncture Site pCO2 (35-45) mmHg pO2 (75-100) mmHg pO2/FiO2 Ratio % Base Excess (-2.0-2.0) O2 Saturation (94-100) g/dF ABG pH (7.35-7.45) ABG HCO3 (22-28) ABG O2 Sat (Measured) (95-100) % Kapil Test VBG pH (7.32-7.42) VBG pCO2 at Pat Temp (42-55) mm/Hg VBG pO2 at Pat Temp (25-40) mm/Hg VBG HCO3 (22-28) meq/L VBG O2 Sat ([place]) (95-100) VBG Base Excess (-2.0-2.0) VBG Hemoglobin VBG Carboxyhemoglobin (0.0-6.9) % T HGB A-a Gradient a/A Ratio Hemoglobin Carboxyhemoglobin (0.0-6.9) % THgb Methemoglobin (1.4-1.5) % POC Potassium (3.5-5.1) Temperature C POC O2 Flow Rate % Sodium 135 L (137-145) mmol/L Potassium 4.2 (3.5-5.1) mmol/L Chloride 112 H (98-107) mmol/L Carbon Dioxide 18 L (22-30) mmol/L Anion Gap 9.0 (5-15) MEQ/L BUN 32 H (9-20) mg/dL Creatinine 1.05 (0.66-1.25) mg/dL Estimated GFR > 60.0 ML/MIN Glucose 169 H (74-106) mg/dL POC Glucometer 186 H 162 H (74 to 106) mg/dL Hemoglobin A1c (4.5-6.0) % Lactic Acid (0.4-2.0) Calcium 8.0 L (8.4-10.2) mg/dL Ferritin (17.9-464) ng/mL Total Bilirubin (0.2-1.3) mg/dL AST (17-59) U/L ALT (0-50) U/L Alkaline Phosphatase (38-126) U/L Lactate Dehydrogenase (120-246) U/L Troponin I (0.000-0.034) ng/mL Serum Total Protein (6.3-8.2) g/dL Albumin (3.5-5.0) g/dL Lipase (23-300) U/L Urinalys Dipstick Clnc Urine Color (YELLOW) Urine Appearance (CLEAR) Urine pH (5-6) Ur Specific Adger (1.005-1.025) POC Urine Protein Conf (Negative) Urine Ketones (NEGATIVE) Urine Nitrite (NEGATIVE) Urine Bilirubin (NEGATIVE) Urine Urobilinogen (0-1) mg/dL Urine Leukocytes (NEGATIVE) Urine WBC (Auto) (0-5) /HPF Urine RBC (Auto) (0-2) /HPF U Hyaline Cast (Auto) (0-2) /LPF U Epithel Cells (Auto) (FEW) /HPF Urine Bacteria (Auto) (NEGATIVE) /HPF Urine RBC (0-5) Kaden/ul Urine Mucus (Auto) (NEGATIVE) /HPF Ur Culture Indicated? Urine Glucose (NEGATIVE) mg/dL Influenza Type A Ag (NEGATIVE) Influenza Type B Ag (NEGATIVE) RSV (PCR) (Negative) SARS-CoV-2 (PCR) (NEGATIVE) Accuchecks Date 07/29/22 Date 07/29/22 Date 07/29/22 Date 07/29/22 Time 11:00 Time 10:05 Time 09:14 Time 08:00 - Radiology Impressions Radiology Exams & Impressions: Radiology Procedures Category Date Time Status CHEST 1 VIEW (PORTABLE) Stat Exams 07/28/22 15:26 Completed - Other Procedures and Tests Respiratory Therapy 07/28/22 23:49 Respiratory Therapy Assessment DAILY Assessment/Plan (1) COVID-19 Current Visit: Yes Status: Acute Code(s): U07.1 - COVID-19 (2) DKA (diabetic ketoacidoses) Current Visit: Yes Status: Acute Qualifiers: Diabetes mellitus type: type 2 Diabetes mellitus complication detail: without coma Qualified Code(s): E08.10 - Diabetes mellitus due to underlying condition with ketoacidosis without coma Code(s): E11.10 - TYPE 2 DIABETES MELLITUS WITH KETOACIDOSIS WITHOUT COMA (3) Leukocytosis Current Visit: Yes Status: Acute Qualifiers: Leukocytosis type: unspecified Qualified Code(s): D72.829 - Elevated white blood cell count, unspecified Code(s): D72.829 - ELEVATED WHITE BLOOD CELL COUNT, UNSPECIFIED
[2022-07-29] MEDS: HUMULIN R 100 UNIT in Sodium Chloride 0.9% 100 ML IV PRN (12:08)
[2022-07-29] MEDS: HYDROCODONE-CHLORPHEN ER SUSP PO PRN (14:06)
[2022-07-29] MEDS ORDERED: PROVENTIL 2.5 MG/3 ML NEB IH PRN (16:54)
[2022-07-29] MEDS ORDERED: Lomotil PO PRN (16:54)
[2022-07-29] MEDS ORDERED: NON-FORMULARY ITEM (Semaglutide [Ozempic] 0.25 MG/0.2 ML Pen.Injctr) SQ SCH (17:00)
[2022-07-29] MEDS: HUMALOG SQ PRN ×2 (17:11→22:12)
[2022-07-29] MEDS ORDERED: MEDICATION INTERVENTION MC SCH ×2 (17:15)
[2022-07-29] MEDS: JARDIANCE PO SCH (17:36)
[2022-07-29] MEDS ORDERED: NON-FORMULARY ITEM (Insulin Glargine,Hum.Rec.Anlog [Basaglar Kwikpen U-100] 100 UNIT/ML In SQ SCH (22:00)
[2022-07-29] MEDS ORDERED: NON-FORMULARY ITEM (Esomeprazole Magnesium [Nexium] 40 MG Suspdr.Pkt) PO SCH (22:00)
[2022-07-29] MEDS: Protonix 40MG Tablet PO SCH (22:11)
[2022-07-29] MEDS: Lopressor 25MG Tab PO SCH (22:11)
[2022-07-29] MEDS: NEURONTIN PO SCH (22:11)
[2022-07-29] MEDS: NORVASC 5 MG PO SCH (22:11)
[2022-07-29] MEDS: Lantus Insulin SQ SCH (22:12)
[2022-07-29] MEDS ORDERED: NEURONTIN PO ONE (23:00)
[2022-07-29] MEDS ORDERED: NORVASC 5 MG PO ONE (23:00)
[2022-07-29] MEDS ORDERED: Protonix 40MG Tablet PO ONE (23:00)
[2022-07-29] MEDS ORDERED: Lopressor 25MG Tab PO ONE (23:00)
[2022-07-30] MEDS: NORVASC 5 MG PO SCH (09:32)
[2022-07-30] MEDS: Protonix 40MG Tablet PO SCH (09:32)
[2022-07-30] MEDS: Lopressor 25MG Tab PO SCH (09:32)
[2022-07-30] MEDS: Lantus Insulin SQ SCH (09:33)
[2022-07-30] MEDS: HYDROCODONE-CHLORPHEN ER SUSP PO PRN (09:33)
[2022-07-30] MEDS: NEURONTIN PO SCH (09:33)
[2022-07-30] MEDS: JARDIANCE PO SCH (09:34)
[2022-07-30] MEDS ORDERED: TESTOSTERONE TOP SCH (10:00)
[2022-07-30 12:03] VITALS: BP 131/85
[2022-07-30] MEDS: HUMALOG SQ PRN (12:52)
[2022-07-30] MEDS ORDERED: Tessalon Perles 100 MG PO PRN (13:08)
[2022-07-30 13:37] VITALS: PULSE 78
--- NOTE | 2022-07-30 18:15 | PCM.DS ---
Discharge Summary Date of Admission: 07/28/22 21:30 Admitting Physician: HARRISON VENTURA Primary Care Provider: HARRISON VENTURA Allergies Allergies lisinopril Allergy (Mild, Verified 07/28/22 22:28) Anaphylactic Reaction naproxen Adverse Reaction (Mild, Verified 07/28/22 22:28) Rash Hospital Summary - Hospital Course Hospital Course: Chief Complaint Diagnosis DKA, COVID Allergies Allergy/AdvReac Type Severity Reaction Status Date / Time lisinopril Allergy Mild Anaphylactic Verified 07/28/22 22:28 Reaction naproxen AdvReac Mild Rash Verified 07/28/22 22:28 Vital Signs (Last 24 hours) Temp Pulse Resp BP Pulse Ox 07/30/22 12:00 99.3 F 78 16 131/85 93 L 07/30/22 08:40 94 L 07/30/22 08:00 99.3 F 82 16 138/85 94 L 07/30/22 05:52 68 23 91 L 07/30/22 04:00 98.9 F 70 19 131/78 91 L 07/30/22 00:00 99.5 F 79 17 122/76 95 07/29/22 20:00 98.2 F 85 22 132/82 93 L 07/29/22 19:12 72 20 95 Home Medications Medication Instructions Recorded Confirmed Last Taken Type Diphenoxylate HCl/Atropine 1 tab PO QIDPRN PRN 07/28/22 07/28/22 Unknown History [Lomotil] Semaglutide [Ozempic] 0.5 mg SQ WEEKLY 07/28/22 07/28/22 07/24/22 History 0.5 Benzonatate 200 mg PO TID PRN 10 Days #30 cap 07/30/22 Unknown Rx Current Medications Discontinued Medications Generic Name Dose Route Start Last Admin Trade Name Freq PRN Reason Stop Dose Admin Albuterol Sulfate 2.5 mg 07/28/22 22:47 Albuterol Sulfate 2.5 Mg/3 Ml Neb 08/27/22 22:46 QIDPRN PRN SHORTNESS OF BREATH/WHEEZING Albuterol Sulfate 2 puff 07/28/22 22:47 07/29/22 05:23 Albuterol Common Canister Inhaler 08/27/22 22:46 2 puff QIDPRN PRN Administration SHORTNESS OF BREATH/WHEEZING Albuterol Sulfate 4 puff 07/29/22 06:44 Albuterol Common Canister Inhaler IH 08/27/22 22:46 QIDPRN PRN SHORTNESS OF BREATH/WHEEZING Albuterol Sulfate puff 07/29/22 16:54 Albuterol Common Canister Inhaler 08/28/22 16:53 QIDPRN PRN sob Albuterol Sulfate 2.5 mg 07/29/22 16:54 Albuterol Sulfate 2.5 Mg/3 Ml Neb 08/28/22 16:53 QID PRN PRN sob Amlodipine Besylate 10 mg 07/29/22 23:00 07/28/22 22:59 Amlodipine Besylate 5 Mg Tablet PO 07/29/22 23:01 10 mg ONCE ONE Administration Amlodipine Besylate Confirm 07/28/22 22:58 Amlodipine Besylate 5 Mg Tablet Administered 07/28/22 22:59 Dose 10 mg .ROUTE .STK-MED ONE Amlodipine Besylate 10 mg 07/29/22 22:00 07/30/22 09:32 Amlodipine Besylate 5 Mg Tablet PO 08/28/22 21:59 10 mg BID LEONIE Administration Benzonatate 200 mg 07/30/22 13:08 Benzonatate 100 Mg Capsule PO 08/29/22 13:07 TID PRN PRN COUGH Chlorphenir/Hydrocodone Polistirex 5 ml 07/29/22 13:15 07/30/22 09:33 Hydrocodone/Chlorphen P-Stirex 1 Ml Cyndie.Er.12h PO 08/28/22 13:14 5 ml [id number] PRN Administration COUGH Diphenoxylate HCl/Atropine 1 tablet 07/28/22 22:48 07/29/22 06:36 Diphenoxylate Hcl/Atropine 1 Tablet PO 08/27/22 22:47 1 tablet QID PRN PRN Administration DIARRHEA Diphenoxylate HCl/Atropine tablet 07/29/22 16:54 Diphenoxylate Hcl/Atropine 1 Tablet PO 08/28/22 16:53 QIDPRN PRN DIARRHEA Droperidol 1.25 mg 07/28/22 17:03 07/28/22 17:10 Droperidol 5 Mg/2 Ml Vial IV 07/28/22 17:04 1.25 mg STAT ONE Administration Droperidol Confirm 07/28/22 17:09 Droperidol 5 Mg/2 Ml Vial Administered 07/28/22 17:10 Dose 5 mg .ROUTE .STK-MED ONE Empagliflozin 25 mg 07/29/22 18:00 07/30/22 09:34 Empagliflozin 10 Mg Tablet PO 08/28/22 17:59 25 mg DAILY LEONIE Administration Ergocalciferol 50,000 unit 07/31/22 10:00 Ergocalciferol (Vitamin D2) 50,000 Unit Capsule PO 08/30/22 09:59 MoTh LEONIE Gabapentin 600 mg 07/29/22 23:00 07/28/22 22:59 Gabapentin 300 Mg Capsule PO 07/29/22 23:01 600 mg ONCE ONE Administration Gabapentin Confirm 07/28/22 22:58 Gabapentin 300 Mg Capsule Administered 07/28/22 22:59 Dose 600 mg .ROUTE .STK-MED ONE Gabapentin 600 mg 07/29/22 22:00 07/30/22 09:33 Gabapentin 300 Mg Capsule PO 08/28/22 21:59 600 mg TID LEONIE Administration Insulin Human Regular 100 unit 100 mls @ 7.39 mls/hr 07/28/22 16:36 07/29/22 12:08 / Sodium Chloride IV 08/27/22 16:35 0.1 unit/kg/hr .[id number] PRN 7.3 mls/hr DKA/HYPERGLYCEMIA Administration Protocol 0.1 UNIT/KG/HR Sodium Chloride 1,000 mls @ 150 mls/hr 07/28/22 19:30 07/28/22 19:20 Sodium Chloride 0.9% 1000 Ml IV 08/27/22 19:29 150 mls/hr .[id number] LEONIE Administration Sodium Chloride Confirm 07/28/22 19:19 Sodium Chloride 0.9% 1000 Ml Administered 07/28/22 19:20 Dose 1,000 mls @ ud .ROUTE .STK-MED ONE Sodium Chloride 1,000 mls @ 250 mls/hr 07/28/22 22:42 07/29/22 01:19 Sodium Chloride 0.9% 1000 Ml IV 07/29/22 02:41 999 mls/hr .Q4H STA Administration Potassium Chloride 20 meq in 100 mls @ 50 mls/hr 07/29/22 00:15 12/27/22 02:21 Potassium Chloride 20 Meq In Water 100ml IV 07/29/22 04:14 50 mls/hr Q2H LEONIE Administration Potassium Chloride/Dextrose/Sod Cl 1,000 mls @ 150 mls/hr 07/29/22 02:30 07/29/22 09:43 D5w/0.45ns W/ 20meq Kcl 1000 Ml IV 08/28/22 02:29 150 mls/hr .Q6H40M LEONIE Administration Potassium Chloride 20 meq in 100 mls @ 50 mls/hr 07/29/22 08:15 07/29/22 10:29 Potassium Chloride 20 Meq In Water 100ml IV 07/29/22 12:14 50 mls/hr Q2H LEONIE Administration Insulin Glargine 20 unit 07/29/22 22:00 07/30/22 09:33 Insulin Glargine 1 Unit SQ 08/28/22 21:59 20 unit BID LEONIE Administration Insulin Human Lispro 0 unit 07/29/22 12:21 07/30/22 12:52 Insulin Lispro 1 Unit SQ 08/28/22 12:20 4 unit UD PRN Administration HYPERGLYCEMIA Metoprolol Tartrate 25 mg 07/29/22 23:00 07/28/22 22:59 Metoprolol Tartrate 25 Mg Tab PO 07/29/22 23:01 25 mg ONCE ONE Administration Metoprolol Tartrate Confirm 07/28/22 22:58 Metoprolol Tartrate 25 Mg Tab Administered 07/28/22 22:59 Dose 25 mg .ROUTE .STK-MED ONE Metoprolol Tartrate 25 mg 07/29/22 22:00 07/30/22 09:32 Metoprolol Tartrate 25 Mg Tab PO 08/28/22 21:59 25 mg BID LEONIE Administration Miscellaneous Information 1 each 07/29/22 17:15 Medication Intervention 1 Each Each 08/28/22 17:14 .RN TO CHECK LEONIE Miscellaneous Information 1 each 07/29/22 17:15 Medication Intervention 1 Each Each 08/28/22 17:14 .RN TO CHECK LEONIE Ondansetron HCl 4 mg 07/28/22 15:26 07/28/22 15:52 Ondansetron Hcl 4 Mg/2 Ml Vial IV 07/28/22 15:27 4 mg STAT ONE Administration Ondansetron HCl Confirm 07/28/22 15:51 Ondansetron Hcl 4 Mg/2 Ml Vial Administered 07/28/22 15:52 Dose 4 mg .ROUTE .STK-MED ONE Ondansetron HCl 4 mg 07/28/22 22:51 Ondansetron Hcl 4 Mg/2 Ml Vial IV 08/27/22 22:50 Q4H PRN PRN NAUSEA/VOMITING Pantoprazole Sodium 40 mg 07/29/22 23:00 07/28/22 22:59 Protonix (Pantoprazole) 40 Mg Tablet PO 07/29/22 23:01 40 mg ONCE ONE Administration Pantoprazole Sodium Confirm 07/28/22 22:58 Protonix (Pantoprazole) 40 Mg Tablet Administered 07/28/22 22:59 Dose 40 mg .ROUTE .STK-MED ONE Pantoprazole Sodium 40 mg 07/29/22 22:00 07/30/22 09:32 Protonix (Pantoprazole) 40 Mg Tablet PO 08/28/22 21:59 40 mg BID LEONIE Administration Intake & Output (Last 24 hours) 07/28/22 07/29/22 07/30/22 07/31/22 11:59 11:59 11:59 11:59 Intake Total 600 600 Output Total 1850 Balance 600 -1250 Weight 78.1 kg 79.3 kg Laboratory Results (Last 24 hours) 07/30/22 07/30/22 07/30/22 13:15 11:03 07:36 POC Glucometer 192 H 131 H SARS-CoV-2 Ag (Rapid) POSITIVE A* 07/29/22 20:55 POC Glucometer 177 H SARS-CoV-2 Ag (Rapid) Orders (Last 24 hours) Category Date Time Status Consistent Carbohydrate Diet 2000 Calorie Diet 07/30/22 Breakfast Completed Discharge Routine Discharge 07/30/22 Ordered Discharge/Telephone Order Routine Discharge 07/30/22 Active COVID AG -BINAX NOW RAPID TEST Stat Lab 07/30/22 13:15 Completed POCT GLUCOSE Stat Lab 07/29/22 20:55 Completed POCT GLUCOSE Stat Lab 07/30/22 07:36 Completed POCT GLUCOSE Stat Lab 07/30/22 11:03 Completed Amlodipine Besylate 5 mg [Norvasc 5 mg] Med 07/29/22 22:00 Discontinued 10 mg PO BID Amlodipine Besylate 5 mg [Norvasc 5 mg] Med 07/29/22 23:00 Discontinued 10 mg PO ONCE ONE Benzonatate 100 mg [Tessalon Perles 100 MG] Med 07/30/22 13:08 Discontinued 200 mg PO TID PRN PRN Empagliflozin [Jardiance] Med 07/29/22 18:00 Discontinued 25 mg PO DAILY Ergocalciferol (Vitamin D2) [Vitamin D2] Med 07/31/22 10:00 Discontinued 50,000 unit PO MoTh Gabapentin [Neurontin ] Med 07/29/22 23:00 Discontinued 600 mg PO ONCE ONE Gabapentin [Neurontin ] Med 07/29/22 22:00 Discontinued 600 mg PO TID Insulin Glargine [Lantus Insulin] Med 07/29/22 22:00 Discontinued 20 unit SQ BID Metoprolol Tartrate 25 mg [Lopressor 25MG Tab] Med 07/29/22 22:00 Discontinued 25 mg PO BID Metoprolol Tartrate 25 mg [Lopressor 25MG Tab] Med 07/29/22 23:00 Discontinued 25 mg PO ONCE ONE PANTOPRAZOLE 40 mg Tablet [Protonix 40MG Tablet] Med 07/29/22 22:00 Discontinued 40 mg PO BID PANTOPRAZOLE 40 mg Tablet [Protonix 40MG Tablet] Med 07/29/22 23:00 Discontinued 40 mg PO ONCE ONE Patient Care Notes (Last 24 hours) 07/30/22 12:17 Case Management Note by Vita Swartz S/W PATIENT- HE CONTINUES TO DENY ANY NEW NEEDS AT TIME OF DC. HE LIVES WITH HIS AND PLANS TO DC HOME TO HIS PLF. HE HAS A PULSE OX AT HOME ALREADY WELL Initialized on 07/30/22 12:17 - END OF NOTE - Vitals & Intake/Output Vital Signs: Vital Signs Temperature 99.3 F 07/30/22 12:00 Pulse Rate 78 07/30/22 12:00 Respiratory Rate 16 07/30/22 12:00 Blood Pressure 131/85 07/30/22 12:00 O2 Sat by Pulse Oximetry 93 L 07/30/22 12:00 Intake & Output: Intake & Output 07/28/22 07/29/22 07/30/22 07/31/22 11:59 11:59 11:59 11:59 Intake Total 600 600 Output Total 1850 Balance 600 -1250 Weight 78.1 kg 79.3 kg - Lab Result Diagrams: 07/29/22 04:30 07/29/22 11:00 Lab Results-Last 24 Hrs: Lab Results-Last 24 Hours 07/29/22 07/30/22 07/30/22 Range/Units 20:55 07:36 11:03 POC Glucometer 177 H 131 H 192 H (74 to 106) mg/dL SARS-CoV-2 Ag (Rapid) (NEGATIVE) 07/30/22 Range/Units 13:15 POC Glucometer (74 to 106) mg/dL SARS-CoV-2 Ag (Rapid) POSITIVE A* (NEGATIVE) Micro Results-Entire Visit: Accuchecks Date 07/30/22 Date 07/30/22 Date 07/29/22 Time 21:00 - Procedures and Test Procedures and Tests throughout Hospitalization: Therapy Orders & Screens 07/28/22 23:49 Respiratory Therapy Assessment DAILY Comment: Diagnosis: DKA, COVID Discharge Exam General Appearance: no apparent distress, alert Neurologic Exam: alert, oriented x 3, cooperative, normal mood/affect, nml cerebellar function, sensation nml, No motor deficits Eye Exam: PERRL, EOMI, eyes nml inspection Ears, Nose, Throat Exam: normal ENT inspection, pharynx normal, moist mucous membranes Neck Exam: normal inspection, non-tender, supple, full range of motion Respiratory Exam: normal breath sounds, lungs clear, No respiratory distress Cardiovascular Exam: regular rate/rhythm, normal heart sounds Gastrointestinal/Abdomen Exam: soft, No tenderness, No mass Male Genitalia Exam: deferred Rectal Exam: deferred Back Exam: normal inspection, normal range of motion, No CVA tenderness, No vertebral tenderness Extremity Exam: normal inspection, normal range of motion Skin Exam: normal color, warm, dry Final Diagnosis/Problem List - Final Discharge Diagnosis/Problem (1) COVID-19 Status: Acute Assessment & Plan: Chief Complaint Diagnosis DKA, COVID Allergies Allergy/AdvReac Type Severity Reaction Status Date / Time lisinopril Allergy Mild Anaphylactic Verified 07/28/22 22:28 Reaction naproxen AdvReac Mild Rash Verified 07/28/22 22:28 Vital Signs (Last 24 hours) Temp Pulse Resp BP Pulse Ox 07/30/22 12:00 99.3 F 78 16 131/85 93 L 07/30/22 08:40 94 L 07/30/22 08:00 99.3 F 82 16 138/85 94 L 07/30/22 05:52 68 23 91 L 07/30/22 04:00 98.9 F 70 19 131/78 91 L 07/30/22 00:00 99.5 F 79 17 122/76 95 07/29/22 20:00 98.2 F 85 22 132/82 93 L 07/29/22 19:12 72 20 95 Home Medications Medication Instructions Recorded Confirmed Last Taken Type Diphenoxylate HCl/Atropine 1 tab PO QIDPRN PRN 07/28/22 07/28/22 Unknown History [Lomotil] Semaglutide [Ozempic] 0.5 mg SQ WEEKLY 07/28/22 07/28/22 07/24/22 History 0.5 Benzonatate 200 mg PO TID PRN 10 Days #30 cap 07/30/22 Unknown Rx Current Medications Discontinued Medications Generic Name Dose Route Start Last Admin Trade Name Freq PRN Reason Stop Dose Admin Albuterol Sulfate 2.5 mg 07/28/22 22:47 Albuterol Sulfate 2.5 Mg/3 Ml [facility] 08/27/22 22:46 QIDPRN PRN SHORTNESS OF BREATH/WHEEZING Albuterol Sulfate 2 puff 07/28/22 22:47 07/29/22 05:23 Albuterol Common Canister Inhaler 08/27/22 22:46 2 puff QIDPRN PRN Administration SHORTNESS OF BREATH/WHEEZING Albuterol Sulfate 4 puff 07/29/22 06:44 Albuterol Common Canister Inhaler 08/27/22 22:46 QIDPRN PRN SHORTNESS OF BREATH/WHEEZING Albuterol Sulfate puff 07/29/22 16:54 Albuterol Common Canister Inhaler 08/28/22 16:53 QIDPRN PRN sob Albuterol Sulfate 2.5 mg 07/29/22 16:54 Albuterol Sulfate 2.5 Mg/3 Ml [facility] 08/28/22 16:53 QID PRN PRN sob Amlodipine Besylate 10 mg 07/29/22 23:00 07/28/22 22:59 Amlodipine Besylate 5 Mg Tablet PO 07/29/22 23:01 10 mg ONCE ONE Administration Amlodipine Besylate Confirm 07/28/22 22:58 Amlodipine Besylate 5 Mg Tablet Administered 07/28/22 22:59 Dose 10 mg .ROUTE .STK-MED ONE Amlodipine Besylate 10 mg 07/29/22 22:00 07/30/22 09:32 Amlodipine Besylate 5 Mg Tablet PO 08/28/22 21:59 10 mg BID LEONIE Administration Benzonatate 200 mg 07/30/22 13:08 Benzonatate 100 Mg Capsule PO 08/29/22 13:07 TID PRN PRN COUGH Chlorphenir/Hydrocodone Polistirex 5 ml 07/29/22 13:15 07/30/22 09:33 Hydrocodone/Chlorphen P-Stirex 1 Ml Cyndie.Er.12h PO 08/28/22 13:14 5 ml [id number] PRN Administration COUGH Diphenoxylate HCl/Atropine 1 tablet 07/28/22 22:48 07/29/22 06:36 Diphenoxylate Hcl/Atropine 1 Tablet PO 08/27/22 22:47 1 tablet QID PRN PRN Administration DIARRHEA Diphenoxylate HCl/Atropine tablet 07/29/22 16:54 Diphenoxylate Hcl/Atropine 1 Tablet PO 08/28/22 16:53 QIDPRN PRN DIARRHEA Droperidol 1.25 mg 07/28/22 17:03 07/28/22 17:10 Droperidol 5 Mg/2 Ml Vial IV 07/28/22 17:04 1.25 mg STAT ONE Administration Droperidol Confirm 07/28/22 17:09 Droperidol 5 Mg/2 Ml Vial Administered 07/28/22 17:10 Dose 5 mg .ROUTE .STK-MED ONE Empagliflozin 25 mg 07/29/22 18:00 07/30/22 09:34 Empagliflozin 10 Mg Tablet PO 08/28/22 17:59 25 mg DAILY LEONIE Administration Ergocalciferol 50,000 unit 07/31/22 10:00 Ergocalciferol (Vitamin D2) 50,000 Unit Capsule PO 08/30/22 09:59 MoTh LEONIE Gabapentin 600 mg 07/29/22 23:00 07/28/22 22:59 Gabapentin 300 Mg Capsule PO 07/29/22 23:01 600 mg ONCE ONE Administration Gabapentin Confirm 07/28/22 22:58 Gabapentin 300 Mg Capsule Administered 07/28/22 22:59 Dose 600 mg .ROUTE .STK-MED ONE Gabapentin 600 mg 07/29/22 22:00 07/30/22 09:33 Gabapentin 300 Mg Capsule PO 08/28/22 21:59 600 mg TID LEONIE Administration Insulin Human Regular 100 unit 100 mls @ 7.39 mls/hr 07/28/22 16:36 07/29/22 12:08 / Sodium Chloride IV 08/27/22 16:35 0.1 unit/kg/hr .[id number] PRN 7.3 mls/hr DKA/HYPERGLYCEMIA Administration Protocol 0.1 UNIT/KG/HR Sodium Chloride 1,000 mls @ 150 mls/hr 07/28/22 19:30 07/28/22 19:20 Sodium Chloride 0.9% 1000 Ml IV 08/27/22 19:29 150 mls/hr .Q6H40M LEONIE Administration Sodium Chloride Confirm 07/28/22 19:19 Sodium Chloride 0.9% 1000 Ml Administered 07/28/22 19:20 Dose 1,000 mls @ ud .ROUTE .STK-MED ONE Sodium Chloride 1,000 mls @ 250 mls/hr 07/28/22 22:42 07/29/22 01:19 Sodium Chloride 0.9% 1000 Ml IV 07/29/22 02:41 999 mls/hr .Q4H STA Administration Potassium Chloride 20 meq in 100 mls @ 50 mls/hr 07/29/22 00:15 07/29/22 02:21 Potassium Chloride 20 Meq In Water 100ml IV 07/29/22 04:14 50 mls/hr Q2H LEONIE Administration Potassium Chloride/Dextrose/Sod Cl 1,000 mls @ 150 mls/hr 07/29/22 02:30 07/29/22 09:43 D5w/0.45ns W/ 20meq Kcl 1000 Ml IV 08/28/22 02:29 150 mls/hr .Q6H40M LEONIE Administration Potassium Chloride 20 meq in 100 mls @ 50 mls/hr 07/29/22 08:15 07/29/22 10:29 Potassium Chloride 20 Meq In Water 100ml IV 07/29/22 12:14 50 mls/hr Q2H LEONIE Administration Insulin Glargine 20 unit 07/29/22 22:00 07/30/22 09:33 Insulin Glargine 1 Unit SQ 08/28/22 21:59 20 unit BID LEONIE Administration Insulin Human Lispro 0 unit 07/29/22 12:21 07/30/22 12:52 Insulin Lispro 1 Unit SQ 08/28/22 12:20 4 unit UD PRN Administration HYPERGLYCEMIA Metoprolol Tartrate 25 mg 07/29/22 23:00 07/28/22 22:59 Metoprolol Tartrate 25 Mg Tab PO 07/29/22 23:01 25 mg ONCE ONE Administration Metoprolol Tartrate Confirm 07/28/22 22:58 Metoprolol Tartrate 25 Mg Tab Administered 07/28/22 22:59 Dose 25 mg .ROUTE .STK-MED ONE Metoprolol Tartrate 25 mg 07/29/22 22:00 07/30/22 09:32 Metoprolol Tartrate 25 Mg Tab PO 08/28/22 21:59 25 mg BID LEONIE Administration Miscellaneous Information 1 each 07/29/22 17:15 Medication Intervention 1 Each Each 08/28/22 17:14 .RN TO CHECK [facility] Miscellaneous Information 1 each 07/29/22 17:15 Medication Intervention 1 Each Each 08/28/22 17:14 .RN TO CHECK LEONIE Ondansetron HCl 4 mg 07/28/22 15:26 07/28/22 15:52 Ondansetron Hcl 4 Mg/2 Ml Vial IV 07/28/22 15:27 4 mg STAT ONE Administration Ondansetron HCl Confirm 07/28/22 15:51 Ondansetron Hcl 4 Mg/2 Ml Vial Administered 07/28/22 15:52 Dose 4 mg .ROUTE .STK-MED ONE Ondansetron HCl 4 mg 07/28/22 22:51 Ondansetron Hcl 4 Mg/2 Ml Vial IV 08/27/22 22:50 Q4H PRN PRN NAUSEA/VOMITING Pantoprazole Sodium 40 mg 07/29/22 23:00 07/28/22 22:59 Protonix (Pantoprazole) 40 Mg Tablet PO 07/29/22 23:01 40 mg ONCE ONE Administration Pantoprazole Sodium Confirm 07/28/22 22:58 Protonix (Pantoprazole) 40 Mg Tablet Administered 07/28/22 22:59 Dose 40 mg .ROUTE .STK-MED ONE Pantoprazole Sodium 40 mg 07/29/22 22:00 07/30/22 09:32 Protonix (Pantoprazole) 40 Mg Tablet PO 08/28/22 21:59 40 mg BID LEONIE Administration Intake & Output (Last 24 hours) 07/28/22 07/29/22 07/30/22 07/31/22 11:59 11:59 11:59 11:59 Intake Total 600 600 Output Total 1850 Balance 600 -1250 Weight 78.1 kg 79.3 kg Laboratory Results (Last 24 hours) 07/30/22 07/30/22 07/30/22 13:15 11:03 07:36 POC Glucometer 192 H 131 H SARS-CoV-2 Ag (Rapid) POSITIVE A* 07/29/22 20:55 POC Glucometer 177 H SARS-CoV-2 Ag (Rapid) Orders (Last 24 hours) Category Date Time Status Consistent Carbohydrate Diet 2000 Calorie Diet 07/30/22 Breakfast Completed Discharge Routine Discharge 07/30/22 Ordered Discharge/Telephone Order Routine Discharge 07/30/22 Active COVID AG -BINAX NOW RAPID TEST Stat Lab 07/30/22 13:15 Completed POCT GLUCOSE Stat Lab 07/29/22 20:55 Completed POCT GLUCOSE Stat Lab 07/30/22 07:36 Completed POCT GLUCOSE Stat Lab 07/30/22 11:03 Completed Amlodipine Besylate 5 mg [Norvasc 5 mg] Med 07/29/22 22:00 Discontinued 10 mg PO BID Amlodipine Besylate 5 mg [Norvasc 5 mg] Med 07/29/22 23:00 Discontinued 10 mg PO ONCE ONE Benzonatate 100 mg [Tessalon Perles 100 MG] Med 07/30/22 13:08 Discontinued 200 mg PO TID PRN PRN Empagliflozin [Jardiance] Med 07/29/22 18:00 Discontinued 25 mg PO DAILY Ergocalciferol (Vitamin D2) [Vitamin D2] Med 07/31/22 10:00 Discontinued 50,000 unit PO MoTh Gabapentin [Neurontin ] Med 07/29/22 23:00 Discontinued 600 mg PO ONCE ONE Gabapentin [Neurontin ] Med 07/29/22 22:00 Discontinued 600 mg PO TID Insulin Glargine [Lantus Insulin] Med 07/29/22 22:00 Discontinued 20 unit SQ BID Metoprolol Tartrate 25 mg [Lopressor 25MG Tab] Med 07/29/22 22:00 Discontinued 25 mg PO BID Metoprolol Tartrate 25 mg [Lopressor 25MG Tab] Med 07/29/22 23:00 Discontinued 25 mg PO ONCE ONE PANTOPRAZOLE 40 mg Tablet [Protonix 40MG Tablet] Med 07/29/22 22:00 Discontinued 40 mg PO BID PANTOPRAZOLE 40 mg Tablet [Protonix 40MG Tablet] Med 07/29/22 23:00 Discontinued 40 mg PO ONCE ONE Patient Care Notes (Last 24 hours) 07/30/22 12:17 Case Management Note by Vita Swartz S/W PATIENT- HE CONTINUES TO DENY ANY NEW NEEDS AT TIME OF DC. HE LIVES WITH HIS AND PLANS TO DC HOME TO HIS PLF. HE HAS A PULSE OX AT HOME ALREADY WELL Initialized on 07/30/22 12:17 - END OF NOTE Code(s): U07.1 - COVID-19 (2) DKA (diabetic ketoacidoses) Status: Resolved Code(s): E11.10 - TYPE 2 DIABETES MELLITUS WITH KETOACIDOSIS WITHOUT COMA (3) Leukocytosis Status: Resolved Code(s): D72.829 - ELEVATED WHITE BLOOD CELL COUNT, UNSPECIFIED - Discharge Discharge Date: 07/30/22 Disposition: Home, Self-Care Condition: Stable Prescriptions: New Benzonatate 200 mg PO TID PRN 10 Days #30 cap PRN Reason: Cough Continue Albuterol Sulfate [Proair Hfa] 2 puffs IH QIDPRN PRN PRN Reason: sob Albuterol 2.5 mg/3 ml Neb [Proventil 2.5 mg/3 ml Neb] 3 ml IH QID PRN PRN PRN Reason: sob Amlodipine Besylate 5 mg [Norvasc 5 mg] 10 mg PO BID Insulin Glargine,Hum.rec.anlog [Basaglar Kwikpen U-100] 20 unit SQ BID Gabapentin [Neurontin ] 600 mg PO TID Sildenafil Citrate [Viagra] 100 mg PO DAILY PRN PRN PRN Reason: erectile dysfuction Esomeprazole Magnesium [Nexium] 40 mg PO BID Metoprolol Tartrate 25 mg [Lopressor 25MG Tab] 25 mg PO BID Ergocalciferol (Vitamin D2) [Vitamin D2] 50,000 unit PO UD Testosterone 1 pump TOP DAILY Empagliflozin [Jardiance] 25 mg PO DAILY Semaglutide [Ozempic] 0.5 mg SQ WEEKLY Diphenoxylate HCl/Atropine [Lomotil] 1 tab PO QIDPRN PRN PRN Reason: Diarrhea Instructions: Type 2 Diabetes, High Blood Sugar, Adult (DC) Additional Instructions: Add RX: Tessalon Perles 200 mg by mouth three times a day as needed for cough #30. Prescription called into [facility] [place]. Follow up with: HARRISON VENTURA MD [Primary Care Provider] - 08/21/22 3:30 pm
[2022-07-31] MEDS ORDERED: VITAMIN D2 PO SCH (10:00)
[2022-07-31 15:11] VITALS: O2SAT 98
== END 2022-07-30 14:15 | disposition home or self-care (01) | DRG 177 ==
LOC: ED 14:58 → ICU 21:30 → ED 21:43
PROVIDERS: ADMIT General Practice; ATTEND General Practice
DX: U07.1 COVID-19 (principal); E11.10 Type 2 diabetes mellitus with ketoacidosis without coma; D72.829 Elevated white blood cell count, unspecified; I10 Essential (primary) hypertension; J44.9 Chronic obstructive pulmonary disease, unspecified; Z79.899 Other long term (current) drug therapy; Z20.828 Contact with and (suspected) exposure to other viral communicable diseases; Z85.118 Personal history of other malignant neoplasm of bronchus and lung
CPT/HCPCS: 0241U; 36000; 36415; 36600; 71045; 80048; 80053; 81015; 82375; 82728; 82803; 82805; 82947; 83036; 83605; 83615; 83690; 84484; 85025; 85027; 85379; 85610; 85730; 87086; 87811; 93005; 93041; 94640; 94760; 96365; 96366; 96374; 96375; 99285; 99291; 87077; 87186; J1817; J2405; J3480; A9270-GY

== ENCOUNTER 2022-10-13 19:41 | Observation (INO) | payer BC ==
[2022-10-13] MEDS ORDERED: Reglan 10 MG/2 ML IV ONE (20:27)
[2022-10-13] MEDS ORDERED: Hydromorphone 1 mg/ml Injection IV ONE (20:27)
[2022-10-13] MEDS ORDERED: Hydromorphone 1 mg/ml Injection ONE (20:44)
[2022-10-13] MEDS ORDERED: Reglan 10 MG/2 ML ONE (20:44)
[2022-10-13] MEDS ORDERED: Sodium Chloride 0.9% 1000 ML 1,000 ML IV STA ×2 (20:48→21:58)
[2022-10-13] MEDS ORDERED: Sodium Chloride 0.9% 1000 ML 1,000 ML ONE ×2 (20:49→22:16)
[2022-10-13 21:06] LABS: Absolute Neutrophil Ct (ANC) 9.13 x10^3/uL (1.4-6.9); BASOPHIL % 0.2 % (0.0-0.4); Basophil (Absolute #) 0.02 x10^3/uL (0-0.4); Eosinophil % 0.1 % (0.00-5.0); Eosinophil (Absolute #) 0.01 x10^3/uL (0-0.5); Hematocrit 49.4 % (42-50); Hemoglobin 16.1 g/dL (12.5-18.0); IMMATURE GRAN # 0.05 x10^3u/L (0.00-0.03); IMMATURE GRAN % 0.5 % (0.00-0.4); Lymphocyte (Absolute #) 0.91 x10^3/uL (1.0-4.6); Lymphocytes % 8.8 % (24.0-44.0); Mean Cell Volume 92.7 fL (78-100); Mean Corpuscular Hemoglobin 30.2 pg (26-32); Mean Corpuscular Hgb Concent. 32.6 g/dL (32-36); Mean Platelet Volume 9.9 fL (7.5-11.0); Monocyte (Absolute #) 0.24 x10^3/uL (0.0-1.3); Monocytes % 2.3 % (0.0-12.0); Neutrophil % 88.1 % (36.0-66.0); Platelet Count 296 x10^3/uL (150-450); Red Blood Count 5.33 x10^6/uL (4.1-5.6); Red Cell Distribution Width 13.3 % (11.5-14.0); White Blood Count 10.4 x10^3/uL (4.0-10.5)
[2022-10-13 21:13] LABS: ADD URINE CULTURE? NO (NO); Appearance Clear (Clear); Bacteria None Seen /HPF (None Seen); Bilirubin Negative (Negative); Blood Negative (Negative); Epithelial Cells None Seen /HPF (None Seen); Glucose, Urine >=1000 mg/dL (Negative); Hyaline Casts NONE SEEN /LPF (0-2); Ketones >=160 (Negative); Leukocyte Esterase Negative (Negative); Nitrite Negative (Negative); Protein,Urine Dip 30 (Negative); RBC 0-2 /HPF (0-5); Specific Gravity >=1.030 (1.005-1.030); Urobilinogen 0.2 mg/dL (0.2); WBC 0-2 /HPF (0-5)
[2022-10-13 21:19] LABS: ALBUMIN 5.2 g/dL (3.5-5.0); ALKALINE PHOSPHATASE 136 U/L (38-126); AMYLASE 62 U/L (30-110); ANION GAP 34.1 MEQ/L (5-15); BLOOD UREA NITROGEN 31 mg/dL (9-20); CHLORIDE 105 mmol/L (98-107); Calcium 9.8 mg/dL (8.4-10.2); Creatinine 1 1.24 mg/dL (0.66-1.25); EST GLOMERULAR FILTRATION RATE > 60.0 ML/MIN; Glucose 414 mg/dL (74-106); LIPASE 20 U/L (23-300); Potassium 4.6 mmol/L (3.5-5.1); SGOT/AST 21 U/L (17-59); SGPT/ALT 24 U/L (0-50); SODIUM 143 mmol/L (137-145); Total Protein 8.7 g/dL (6.3-8.2)
[2022-10-13 21:26] LABS: Amphetamine,Urine NEGATIVE (NEGATIVE); Barbiturate,Urine NEGATIVE (NEGATIVE); Benzodiazepine,Urine NEGATIVE (NEGATIVE); Cocaine,Urine NEGATIVE (NEGATIVE); Methadone,Urine NEGATIVE (NEGATIVE); Opiate,Urine NEGATIVE (NEGATIVE); PCP,Urine NEGATIVE (NEGATIVE); THC,Urine NEGATIVE (NEGATIVE)
[2022-10-13 21:42] LABS: Carbon Dioxide 9 mmol/L (22-30)
--- NOTE | 2022-10-13 21:57 | ERPHSYRPT ---
- History of Present Illness Time Seen by Provider: 10/13/22 20:15 Patient Subjective Stated Complaint: pt states "I have been vomiting nonstop for 3 days. I think I am in DKA" Triage Nursing Assessment: pt ambulatory to bed by self, pt alert and oriented x3, pt c/o vomiting and diarrhea x3 days with slight diffuse abd pain, pt states "I think I am in DKA." pt fsbs 303, pt is a type 2 insulin dependent diabetic, skin pale and cool Physician History: Patient is a 41-year-old male who presents with vomiting. He has been sick since 7 AM today he has not been keeping anything down and has had some diarrhea his gallbladder is out he has right he has the right lower lobe removed as secondary to cancer and COPD and asthma he is also an insulin-dependent diabetic. Timing/Duration: today Activities at Onset: none Quality: cramping Abdominal Pain Onset Location: generalized abdomen Pain Radiation: no radiation Severity of Pain-Max: moderate Severity of Pain-Current: moderate Modifying Factors: Improves With: nothing Associated Symptoms: diarrhea, loss of appetite, nausea, vomiting Previous symptoms: same symptoms as today Allergies/Adverse Reactions: lisinopril Allergy (Mild, Verified 10/13/22 20:04) Anaphylactic Reaction naproxen Adverse Reaction (Mild, Verified 10/13/22 20:04) Rash Home Medications: Albuterol 2.5 mg/3 ml Neb [Proventil 2.5 mg/3 ml Neb] 3 ml IH QID PRN PRN 10/15/16 [History] Albuterol Sulfate [Proair Hfa] 2 puffs IH QIDPRN PRN 10/15/16 [History] Amlodipine Besylate 5 mg [Norvasc 5 mg] 10 mg PO BID 11/12/20 [History] Insulin Glargine,Hum.rec.anlog [Basaglar Kwikpen U-100] 20 unit SQ BID 11/13/20 [History] Gabapentin [Neurontin ] 600 mg PO TID 02/17/21 [History] Esomeprazole Magnesium [Nexium] 40 mg PO BID 12/26/21 [History] Sildenafil Citrate [Viagra] 100 mg PO DAILY PRN PRN 12/26/21 [History] Empagliflozin [Jardiance] 25 mg PO DAILY 03/30/22 [History] Ergocalciferol (Vitamin D2) [Vitamin D2] 50,000 unit PO UD 03/30/22 [History] Metoprolol Tartrate 25 mg [Lopressor 25MG Tab] 25 mg PO BID 03/30/22 [History] Testosterone 1 pump TOP DAILY 03/30/22 [History] Diphenoxylate HCl/Atropine [Lomotil] 1 tab PO QIDPRN PRN 07/28/22 [History] Semaglutide [Ozempic] 0.5 mg SQ WEEKLY 07/28/22 [History] Hx Tetanus, Diphtheria Vaccination/Date Given: Yes Hx Influenza Vaccination/Date Given: Yes Hx Pneumococcal Vaccination/Date Given: Yes Immunizations Up to Date: Yes Travel Risk - International Travel Have you traveled outside of the country in past 3 weeks: No - Coronavirus Screening Are you exhibiting any of the following symptoms?: No Close contact with a COVID-19 positive Pt in past 14-21 Days: No - Vaccine Status Have you recieved a Covid-19 vaccination: Yes 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 - Vaccination Dates Date of 2cond Vaccination (if applicable): 2020 - Review of Systems Constitutional: No Fever, No Chills Eyes: No Symptoms Ears, Nose, & Throat: No Symptoms Respiratory: No Cough, No Dyspnea Cardiac: No Chest Pain, No Edema, No Syncope Abdominal/Gastrointestinal: Abdominal Pain, Nausea, Vomiting, Diarrhea Genitourinary Symptoms: No Dysuria Musculoskeletal: No Back Pain, No Neck Pain Skin: No Rash Neurological: No Dizziness, No Focal Weakness, No Sensory Changes Psychological: No Symptoms Endocrine: No Symptoms All Other Systems: Reviewed and Negative - Past Medical History Pertinent Past Medical History: Yes Neurological History: Peripheral Neuropathy ENT History: Cataracts Cardiac History: Hypertension Respiratory History: Asthma, COPD, Lung Cancer, Pneumonia, Other Endocrine Medical History: Diabetes Type II Musculoskeletal History: Fractures GI Medical History: GERD, Gallbladder Disease, Irritable Bowel, Other History: No Pertinent History Psycho-Social History: No Pertinent History Male Reproductive Disorders: No Pertinent History Other Medical History: HAS BEEN IN REMISSION FOR LUNG CANCER X 10 YEARS. HX FRACTURE RIBS AND T6, T7 6 YEARS AGO AFTER FALL FROM LADDER. 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 both cataracts removed- suboptical implant in;. rt middle lobe remove - Social History Smoking Status: Never smoker Exposure to second hand smoke: No Drug Use: none Patient Lives Alone: No Significant Family History: no pertinent family hx - Nursing Vital Signs Nursing Vital Signs: Initial Vital Signs Temperature 97.7 F 10/13/22 20:04 Pulse Rate 101 H 10/13/22 20:04 Respiratory Rate 18 10/13/22 20:04 Blood Pressure 180/101 10/13/22 20:04 O2 Sat by Pulse Oximetry 99 10/13/22 20:04 Pain Scale Pain Intensity 3 - Physical Exam General Appearance: mild distress Eye Exam: PERRL/EOMI, eyes nml inspection Ears, Nose, Throat Exam: normal ENT inspection, pharynx normal, moist mucous membranes Neck Exam: normal inspection, non-tender, supple, full range of motion Respiratory Exam: normal breath sounds, lungs clear, No respiratory distress Cardiovascular Exam: regular rate/rhythm, normal heart sounds Gastrointestinal/Abdomen Exam: normal bowel sounds, tenderness, guarding, No rebound SpO2: 97 - Course Nursing assessment & vital signs reviewed: Yes - CT Exams Abdomen/Pelvis CT Interpretation: Tele-radiologist Report Ordered Tests: Active Orders 24 hr Category Date Time Status EKG-ER Only STAT Care 10/13/22 20:27 Active IV Insertion STAT Care 10/13/22 20:27 Active IV Insertion-2nd Peripheral STAT Care 10/13/22 22:03 Active POCT Glucose Check STAT Care 10/13/22 20:30 Active ABDOMEN AND PELVIS W CONTRAST [CT] Stat Exams 10/13/22 20:28 Taken AMYLASE Stat Lab 10/13/22 20:45 Completed CBC W DIFF Stat Lab 10/13/22 20:45 Completed CMP Stat Lab 10/13/22 20:45 Completed LIPASE Stat Lab 10/13/22 20:45 Completed Lactic Acid Stat Lab 10/13/22 21:09 Completed Lactic Acid Stat Lab 10/13/22 23:16 Received POCT GLUCOSE Stat Lab 10/13/22 20:04 Completed POCT GLUCOSE Stat Lab 10/13/22 23:08 Completed TROPONIN Q4H Lab 10/13/22 20:45 Completed TROPONIN Q4H Lab 10/14/22 00:30 Ordered TROPONIN Q4H Lab 10/14/22 04:30 Ordered UA W/RFX UR CULTURE Stat Lab 10/13/22 20:42 Completed Urine Triage Profile Stat Lab 10/13/22 20:42 Completed Medication Summary Generic Name Dose Route Start Last Admin Trade Name Freq PRN Reason Stop Dose Admin Insulin Human Regular 100 unit 100 mls @ 7.76 mls/hr 10/13/22 21:58 10/13/22 23:14 / Sodium Chloride IV 11/12/22 21:57 0.07 unit/kg/hr .[id number] PRN 5.5 mls/hr DKA/HYPERGLYCEMIA Titration Protocol 0.1 UNIT/KG/HR Discontinued Medications Generic Name Dose Route Start Last Admin Trade Name Freq PRN Reason Stop Dose Admin Hydromorphone HCl 1 mg 10/13/22 20:27 10/13/22 20:48 Hydromorphone 1 Mg/1ml Inj 1 Mg/Ml Syringe IV 10/13/22 20:28 1 mg STAT ONE Administration Hydromorphone HCl Confirm 10/13/22 20:44 Hydromorphone 1 Mg/1ml Inj 1 Mg/Ml Syringe Administered 10/13/22 20:45 Dose 1 mg .ROUTE .STK-MED ONE Sodium Chloride 1,000 mls @ 999 mls/hr 10/13/22 20:48 10/13/22 21:51 Sodium Chloride 0.9% 1000 Ml IV 10/13/22 21:48 Infused .Q1H1M STA Infusion Sodium Chloride Confirm 10/13/22 20:49 Sodium Chloride 0.9% 1000 Ml Administered 10/13/22 20:50 Dose 1,000 mls @ ud .ROUTE .STK-MED ONE Sodium Chloride 1,000 mls @ 999 mls/hr 10/13/22 21:58 10/13/22 22:22 Sodium Chloride 0.9% 1000 Ml IV 10/13/22 22:58 999 mls/hr .Q1H1M STA Administration Sodium Chloride Confirm 10/13/22 22:16 Sodium Chloride 0.9% Administered 10/13/22 22:17 Dose 100 mls @ ud .ROUTE .STK-MED ONE Sodium Chloride Confirm 10/13/22 22:16 Sodium Chloride 0.9% 1000 Ml Administered 10/13/22 22:17 Dose 1,000 mls @ ud .ROUTE .STK-[facility] ONE Insulin Human Regular 10 unit 10/13/22 21:58 10/13/22 22:23 Insulin Regular, Human 1 Unit IV 10/13/22 21:59 10 unit STAT ONE Administration Insulin Human Regular Confirm 10/13/22 22:16 Insulin Regular, Human 1 Unit Administered 10/13/22 22:17 Dose 110 unit .ROUTE .STK-MED ONE Metoclopramide HCl 10 mg 10/13/22 20:27 10/13/22 20:48 Metoclopramide Hcl 10 Mg/2 Ml Vial IV 10/13/22 20:28 10 mg STAT ONE Administration Metoclopramide HCl Confirm 10/13/22 20:44 Metoclopramide Hcl 10 Mg/2 Ml Vial Administered 10/13/22 20:45 Dose [address] ONE Lab/Rad Data: Laboratory Result Diagrams 10/13/22 20:45 10/13/22 20:45 Laboratory Results 10/13/22 10/13/22 10/13/22 Range/Units 23:08 21:09 20:45 WBC (4.0-10.5) x10^3/uL RBC (4.1-5.6) x10^6/uL Hgb (12.5-18.0) g/dL Hct (42-50) % MCV (78-100) fL MCH (26-32) pg MCHC (32-36) g/dL RDW (11.5-14.0) % Plt Count (150-450) x10^3/uL MPV (7.5-11.0) fL Gran % (36.0-66.0) % Immature Gran % (Auto) (0.00-0.4) % Nucleat RBC Rel Count (0.00-0.1) % Eos # (Auto) (0-0.5) x10^3/uL Immature Gran # (Auto) (0.00-0.03) x10^3u/L Absolute Lymphs (auto) (1.0-4.6) x10^3/uL Absolute Monos (auto) (0.0-1.3) x10^3/uL Absolute Nucleated RBC (0.00-0.01) x10^3u/L Lymphocytes % (24.0-44.0) % Monocytes % (0.0-12.0) % Eosinophils % (0.00-5.0) % Basophils % (0.0-0.4) % Absolute Granulocytes (1.4-6.9) x10^3/uL Basophils # (0-0.4) x10^3/uL Sodium (137-145) mmol/L Potassium (3.5-5.1) mmol/L Chloride (98-107) mmol/L Carbon Dioxide (22-30) mmol/L Anion Gap (5-15) MEQ/L BUN (9-20) mg/dL Creatinine (0.66-1.25) mg/dL Estimated GFR ML/MIN Glucose (74-106) mg/dL POC Glucometer 281 H (74 to 106) mg/dL Lactic Acid 4.3 H (0.4-2.0) Calcium (8.4-10.2) mg/dL Total Bilirubin (0.2-1.3) mg/dL AST (17-59) U/L ALT (0-50) U/L Alkaline Phosphatase (38-126) U/L Troponin I (0.000-0.034) ng/mL Serum Total Protein (6.3-8.2) g/dL Albumin (3.5-5.0) g/dL Amylase (30-110) U/L Lipase (23-300) U/L Urine Color (Yellow) Urine Appearance (Clear) Urine pH (4.6-8.0) Ur Specific Bradford (1.005-1.030) Urine Protein (Negative) Urine Glucose (UA) (Negative) mg/dL Urine Ketones (Negative) Urine Blood (Negative) Urine Nitrite (Negative) Urine Bilirubin (Negative) Urine Urobilinogen (0.2) mg/dL Ur Leukocyte Esterase (Negative) U Hyaline Cast (Auto) (0-2) /LPF Urine Microscopic RBC (0-5) /HPF Urine Microscopic WBC (0-5) /HPF Ur Epithelial Cells (None Seen) /HPF Urine Bacteria (None Seen) /HPF Urine Culture Reflexed (NO) Urine Opiates Level (NEGATIVE) Ur Methadone (NEGATIVE) Urine Barbiturates (NEGATIVE) Ur Phencyclidine (PCP) (NEGATIVE) Urine Amphetamine (NEGATIVE) U Benzodiazepine Level (NEGATIVE) Urine Cocaine (NEGATIVE) Urine Marijuana (THC) (NEGATIVE) Influenza Type A Ag NEGATIVE (NEGATIVE) Influenza Type B Ag NEGATIVE (NEGATIVE) RSV (PCR) NEGATIVE (Negative) SARS-CoV-2 (PCR) NEGATIVE (NEGATIVE) 10/13/22 10/13/22 10/13/22 Range/Units 20:45 20:45 20:45 WBC 10.4 (4.0-10.5) x10^3/uL RBC 5.33 (4.1-5.6) x10^6/uL Hgb 16.1 (12.5-18.0) g/dL Hct 49.4 (42-50) % MCV 92.7 (78-100) fL MCH 30.2 (26-32) pg MCHC 32.6 (32-36) g/dL RDW 13.3 (11.5-14.0) % Plt Count 296 (150-450) x10^3/uL MPV 9.9 (7.5-11.0) fL Gran % 88.1 H (36.0-66.0) % Immature Gran % (Auto) 0.5 H (0.00-0.4) % Nucleat RBC Rel Count 0.0 (0.00-0.1) % Eos # (Auto) 0.01 (0-0.5) x10^3/uL Immature Gran # (Auto) 0.05 H (0.00-0.03) x10^3u/L Absolute Lymphs (auto) 0.91 L (1.0-4.6) x10^3/uL Absolute Monos (auto) 0.24 (0.0-1.3) x10^3/uL Absolute Nucleated RBC 0.00 (0.00-0.01) x10^3u/L Lymphocytes % 8.8 L (24.0-44.0) % Monocytes % 2.3 (0.0-12.0) % Eosinophils % 0.1 (0.00-5.0) % Basophils % 0.2 (0.0-0.4) % Absolute Granulocytes 9.13 H (1.4-6.9) x10^3/uL Basophils # 0.02 (0-0.4) x10^3/uL Sodium 143 (137-145) mmol/L Potassium 4.6 (3.5-5.1) mmol/L Chloride 105 (98-107) mmol/L Carbon Dioxide 9 L* (22-30) mmol/L Anion Gap 34.1 H (5-15) MEQ/L BUN 31 H (9-20) mg/dL Creatinine 1.24 (0.66-1.25) mg/dL Estimated GFR > 60.0 ML/MIN Glucose 414 H (74-106) mg/dL POC Glucometer (74 to 106) mg/dL Lactic Acid (0.4-2.0) Calcium 9.8 (8.4-10.2) mg/dL Total Bilirubin 0.90 (0.2-1.3) mg/dL AST 21 (17-59) U/L ALT 24 (0-50) U/L Alkaline Phosphatase 136 H (38-126) U/L Troponin I < 0.012 (0.000-0.034) ng/mL Serum Total Protein 8.7 H (6.3-8.2) g/dL Albumin 5.2 H (3.5-5.0) g/dL Amylase 62 (30-110) U/L Lipase 20 L (23-300) U/L Urine Color (Yellow) Urine Appearance (Clear) Urine pH (4.6-8.0) Ur Specific Bradford (1.005-1.030) Urine Protein (Negative) Urine Glucose (UA) (Negative) mg/dL Urine Ketones (Negative) Urine Blood (Negative) Urine Nitrite (Negative) Urine Bilirubin (Negative) Urine Urobilinogen (0.2) mg/dL Ur Leukocyte Esterase (Negative) U Hyaline Cast (Auto) (0-2) /LPF Urine Microscopic RBC (0-5) /HPF Urine Microscopic WBC (0-5) /HPF Ur Epithelial Cells (None Seen) /HPF Urine Bacteria (None Seen) /HPF Urine Culture Reflexed (NO) Urine Opiates Level (NEGATIVE) Ur Methadone (NEGATIVE) Urine Barbiturates (NEGATIVE) Ur Phencyclidine (PCP) (NEGATIVE) Urine Amphetamine (NEGATIVE) U Benzodiazepine Level (NEGATIVE) Urine Cocaine (NEGATIVE) Urine Marijuana (THC) (NEGATIVE) Influenza Type A Ag (NEGATIVE) Influenza Type B Ag (NEGATIVE) RSV (PCR) (Negative) SARS-CoV-2 (PCR) (NEGATIVE) 10/13/22 10/13/22 10/13/22 Range/Units 20:42 20:42 20:04 WBC (4.0-10.5) x10^3/uL RBC (4.1-5.6) x10^6/uL Hgb (12.5-18.0) g/dL Hct (42-50) % MCV (78-100) fL MCH (26-32) pg MCHC (32-36) g/dL RDW (11.5-14.0) % Plt Count (150-450) x10^3/uL MPV (7.5-11.0) fL Gran % (36.0-66.0) % Immature Gran % (Auto) (0.00-0.4) % Nucleat RBC Rel Count (0.00-0.1) % Eos # (Auto) (0-0.5) x10^3/uL Immature Gran # (Auto) (0.00-0.03) x10^3u/L Absolute Lymphs (auto) (1.0-4.6) x10^3/uL Absolute Monos (auto) (0.0-1.3) x10^3/uL Absolute Nucleated RBC (0.00-0.01) x10^3u/L Lymphocytes % (24.0-44.0) % Monocytes % (0.0-12.0) % Eosinophils % (0.00-5.0) % Basophils % (0.0-0.4) % Absolute Granulocytes (1.4-6.9) x10^3/uL Basophils # (0-0.4) x10^3/uL Sodium (137-145) mmol/L Potassium (3.5-5.1) mmol/L Chloride (98-107) mmol/L Carbon Dioxide (22-30) mmol/L Anion Gap (5-15) MEQ/L BUN (9-20) mg/dL Creatinine (0.66-1.25) mg/dL Estimated GFR ML/MIN Glucose (74-106) mg/dL POC Glucometer 303 H (74 to 106) mg/dL Lactic Acid (0.4-2.0) Calcium (8.4-10.2) mg/dL Total Bilirubin (0.2-1.3) mg/dL AST (17-59) U/L ALT (0-50) U/L Alkaline Phosphatase (38-126) U/L Troponin I (0.000-0.034) ng/mL Serum Total Protein (6.3-8.2) g/dL Albumin (3.5-5.0) g/dL Amylase (30-110) U/L Lipase (23-300) U/L Urine Color Yellow (Yellow) Urine Appearance Clear (Clear) Urine pH 5.0 (4.6-8.0) Ur Specific Bradford >=1.030 A (1.005-1.030) Urine Protein 30 (Negative) Urine Glucose (UA) >=1000 A (Negative) mg/dL Urine Ketones >=160 A (Negative) Urine Blood Negative (Negative) Urine Nitrite Negative (Negative) Urine Bilirubin Negative (Negative) Urine Urobilinogen 0.2 (0.2) mg/dL Ur Leukocyte Esterase Negative (Negative) U Hyaline Cast (Auto) NONE SEEN (0-2) /LPF Urine Microscopic RBC 0-2 (0-5) /HPF Urine Microscopic WBC 0-2 (0-5) /HPF Ur Epithelial Cells None Seen (None Seen) /HPF Urine Bacteria None Seen (None Seen) /HPF Urine Culture Reflexed NO (NO) Urine Opiates Level NEGATIVE (NEGATIVE) Ur Methadone NEGATIVE (NEGATIVE) Urine Barbiturates NEGATIVE (NEGATIVE) Ur Phencyclidine (PCP) NEGATIVE (NEGATIVE) Urine Amphetamine NEGATIVE (NEGATIVE) U Benzodiazepine Level NEGATIVE (NEGATIVE) Urine Cocaine NEGATIVE (NEGATIVE) Urine Marijuana (THC) NEGATIVE (NEGATIVE) Influenza Type A Ag (NEGATIVE) Influenza Type B Ag (NEGATIVE) RSV (PCR) (Negative) SARS-CoV-2 (PCR) (NEGATIVE) - Progress Progress: improved Discussed with DrOzzy: Other (Dr. Lopez) Medical Desision Making - Discussion of managment Care discussed with:: hospitalist Reviewed:: Test results Agreed on:: Treatment plan Will see patient: in hospital - Risk of complications The pt has a high risk of morbidity or mortality based on: Drug therapy requiring intensive monitoring for toxicity - Departure Departure Disposition: In-patient Admission Clinical Impression: Diabetic ketoacidosis Condition: Stable Critical Care Time: Yes Critical Care Time(excluding separately billable procedures): Critical 30-74 mins (65) Referrals: HARRISON VENTURA MD [Primary Care Provider] - Follow up/PCP as directed
[2022-10-13] MEDS ORDERED: HUMULIN R IV ONE (21:58)
[2022-10-13] MEDS ORDERED: HUMULIN R 100 UNIT in Sodium Chloride 0.9% 100 ML IV PRN (21:58)
[2022-10-13 22:02] LABS: INFLUENZA A NEGATIVE (NEGATIVE); INFLUENZA B NEGATIVE (NEGATIVE); RESPIRATORY SYNCTIAL VIRUS NEGATIVE (Negative); SARS-CoV-2 Xpert Express NEGATIVE (NEGATIVE)
[2022-10-13] MEDS ORDERED: Sodium Chloride 0.9% 100 ML ONE (22:16)
[2022-10-13] MEDS ORDERED: HUMULIN R ONE (22:16)
[2022-10-13] MEDS ORDERED: Hydromorphone 1 mg/ml Injection IV PRN (23:27)
[2022-10-13] MEDS ORDERED: Zofran 4 MG/2 ML VIAL IV PRN (23:27)
[2022-10-14] MEDS ORDERED: D5W/0.45NS W/ 20mEq KCl 1000 ML 1,000 ML IV ONE (00:20)
[2022-10-14] MEDS ORDERED: D5W/0.45NS W/ 20mEq KCl 1000 ML 1,000 ML IV SCH (00:30)
[2022-10-14] MEDS ORDERED: TYLENOL 325 MG PO PRN (00:34)
[2022-10-14 01:27] LABS: ALBUMIN 4.2 g/dL (3.5-5.0); ALKALINE PHOSPHATASE 93 U/L (38-126); ANION GAP 21.9 MEQ/L (5-15); BLOOD UREA NITROGEN 30 mg/dL (9-20); CHLORIDE 112 mmol/L (98-107); Calcium 8.9 mg/dL (8.4-10.2); Creatinine 1 1.05 mg/dL (0.66-1.25); Direct Bilirubin 0.1 mg/dL (0.0-0.4); EST GLOMERULAR FILTRATION RATE > 60.0 ML/MIN; Glucose 217 mg/dL (74-106); MAGNESIUM 2.2 mg/dL (1.6-2.3); Potassium 4.3 mmol/L (3.5-5.1); SGOT/AST 19 U/L (17-59); SGPT/ALT 19 U/L (0-50); SODIUM 145 mmol/L (137-145); TROPONIN 0.034 ng/mL (0.000-0.034); Total Protein 7.2 g/dL (6.3-8.2)
[2022-10-14 01:35] LABS: Carbon Dioxide 15 mmol/L (22-30)
[2022-10-14] MEDS: Sodium Chloride 0.9% 1000 ML 1,000 ML IV SCH ×5 (02:29→22:23)
[2022-10-14 04:07] LABS: 027 TOX PROD PRESUMPTIVE NEGATIVE (NEGATIVE); TOXIGENIC C. DIFF ORG NEGATIVE (NEGATIVE)
[2022-10-14 05:42] LABS: ALBUMIN 3.6 g/dL (3.5-5.0); ALKALINE PHOSPHATASE 82 U/L (38-126); BLOOD UREA NITROGEN 26 mg/dL (9-20); CHLORIDE 105 mmol/L (98-107); Calcium 8.1 mg/dL (8.4-10.2); Carbon Dioxide 20 mmol/L (22-30); Creatinine 1 0.81 mg/dL (0.66-1.25); Direct Bilirubin 0.1 mg/dL (0.0-0.4); EST GLOMERULAR FILTRATION RATE > 60.0 ML/MIN; Glucose 193 mg/dL (74-106); Potassium 3.8 mmol/L (3.5-5.1); SGOT/AST 25 U/L (17-59); SGPT/ALT 17 U/L (0-50); SODIUM 134 mmol/L (137-145); Total Protein 6.4 g/dL (6.3-8.2)
[2022-10-14] MEDS ORDERED: HUMALOG SQ PRN (06:08)
[2022-10-14] MEDS: Lantus Insulin SQ SCH ×2 (06:21→22:24)
[2022-10-14] MEDS ORDERED: NON-FORMULARY ITEM (Benzonatate [Benzonatate] 200 MG Capsule) PO PRN (08:29)
[2022-10-14] MEDS ORDERED: VENTOLIN COMMON CANISTER IH PRN (08:29)
[2022-10-14] MEDS ORDERED: Lomotil PO PRN (08:29)
[2022-10-14] MEDS ORDERED: PROVENTIL 2.5 MG/3 ML NEB IH PRN (08:29)
[2022-10-14] MEDS ORDERED: Tessalon Perles 100 MG PO PRN (08:32)
--- NOTE | 2022-10-14 08:49 | XRAY ---
Indication: Abdomen pain, nausea, vomiting, diarrhea. Diabetic ketoacidosis. Multiple contiguous axial images obtained through the abdomen and pelvis using 80 cc Isovue 370 contrast. Comparison: March 29, 2022 Lung bases demonstrates grossly stable right midlung pleural-parenchymal fibrosis/scarring. No infiltrate or effusion. Heart not enlarged. Noncontrasted stomach and bowel loops nonobstructed again with normal appendix a few jejunal bowel loops are now mildly fluid distended, ileus versus enteritis. No free fluid/air. Again mild scattered colonic diverticulosis and cholecystotomy. Remaining liver, pancreas, spleen, adrenal glands, kidneys, ureters, and bladder are unremarkable. Again mild scattered aortoiliac calcifications. No AAA or pathologic retroperitoneal lymphadenopathy. Osseous structures intact again with osteopenia, mild multilevel degenerative changes, and remote L3 superior endplate fracture. Impression: 1. New mild small bowel ileus versus enteritis. 2. Again chronic findings including right midlung pleural-parenchymal fibrosis/scarring, colonic diverticulosis, arteriosclerotic disease, and chronic bony findings. Comment: Preliminary interpretation made by [facility]. No critical discrepancy.
[2022-10-14] MEDS: NORVASC 5 MG PO SCH ×2 (09:17→22:23)
[2022-10-14] MEDS: Lopressor 25MG Tab PO SCH ×2 (09:17→22:23)
[2022-10-14] MEDS: JARDIANCE PO SCH (09:18)
[2022-10-14] MEDS: NEURONTIN PO SCH ×3 (09:18→22:24)
[2022-10-14] MEDS: DEMADEX 20 MG PO SCH (09:18)
[2022-10-14] MEDS: Protonix 40MG Tablet PO SCH ×2 (09:18→22:24)
[2022-10-14 09:34] LABS: ALBUMIN 3.8 g/dL (3.5-5.0); ALKALINE PHOSPHATASE 92 U/L (38-126); ANION GAP 10.8 MEQ/L (5-15); BLOOD UREA NITROGEN 20 mg/dL (9-20); CHLORIDE 104 mmol/L (98-107); Calcium 8.3 mg/dL (8.4-10.2); Carbon Dioxide 24 mmol/L (22-30); Creatinine 1 0.81 mg/dL (0.66-1.25); EST GLOMERULAR FILTRATION RATE > 60.0 ML/MIN; Glucose 101 mg/dL (74-106); Potassium 3.6 mmol/L (3.5-5.1); SGOT/AST 24 U/L (17-59); SGPT/ALT 17 U/L (0-50); SODIUM 135 mmol/L (137-145); Total Protein 6.5 g/dL (6.3-8.2)
[2022-10-14 09:35] LABS: Direct Bilirubin 0 mg/dL (0.0-0.4)
[2022-10-14] MEDS ORDERED: NON-FORMULARY ITEM (Esomeprazole Magnesium [Nexium] 40 MG Suspdr.Pkt) PO SCH (10:00)
--- NOTE | 2022-10-14 13:00 | PCM.HP ---
History of Present Illness - Chief Complaint Chief Complaint: c/o severe vomiting for 1 day History of Present Illness: is a 56 year old male.who presents with vomiting. He has been sick since 7 AM today he has not been keeping anything down and has had some diarrhea his gallbladder is out he has right he has the right lower lobe removed as secondary to cancer and COPD and asthma he is also an insulin-dependent diabetic. Timing/Duration: today Activities at Onset: none Quality: cramping Abdominal Pain Onset Location: generalized abdomen Pain Radiation: no radiation Severity of Pain-Max: moderate Severity of Pain-Current: moderate Modifying Factors: Improves With: nothing Associated Symptoms: diarrhea, loss of appetite, nausea, vomiting Previous symptoms: same symptoms as today - Review of Systems Constitutional: No Fever, No Chills Eyes: No Symptoms Ears, Nose, & Throat: No Symptoms Respiratory: No Cough, No Short Of Breath Cardiac: No Chest Pain, No Edema, No Syncope Abdominal/Gastrointestinal: Vomiting, No Abdominal Pain, No Nausea, No Diarrhea Genitourinary Symptoms: No Dysuria Musculoskeletal: No Back Pain, No Neck Pain Skin: No Rash Neurological: No Dizziness, No Focal Weakness, No Sensory Changes Psychological: No Symptoms Endocrine: No Symptoms Hematologic/Lymphatic: No Symptoms Immunological/Allergic: No Symptoms Medications & Allergies Home Medications: Home Medication List Albuterol 2.5 mg/3 ml Neb [Proventil 2.5 mg/3 ml Neb] 1 neb IH QID PRN PRN 10/15/16 [History Confirmed 10/14/22] Albuterol Sulfate [Proair Hfa] 2 puffs IH QIDPRN PRN 10/15/16 [History Confirmed 10/14/22] Amlodipine Besylate 5 mg [Norvasc 5 mg] 10 mg PO BID 11/12/20 [History Confirmed 10/14/22] Insulin Glargine,Hum.rec.anlog [Basaglar Kwikpen U-100] 20 unit SQ BID 11/13/20 [History Confirmed 10/14/22] Gabapentin [Neurontin ] 600 mg PO TID 02/17/21 [History Confirmed 10/14/22] Esomeprazole Magnesium [Nexium] 40 mg PO BID 12/26/21 [History Confirmed 10/14/22] Sildenafil Citrate [Viagra] 100 mg PO DAILY PRN PRN 12/26/21 [History Confirmed 10/14/22] Empagliflozin [Jardiance] 25 mg PO DAILY 03/30/22 [History Confirmed 10/14/22] Ergocalciferol (Vitamin D2) [Vitamin D2] 50,000 unit PO UD 03/30/22 [History Confirmed 10/14/22] Metoprolol Tartrate 25 mg [Lopressor 25MG Tab] 25 mg PO BID 03/30/22 [History Confirmed 10/14/22] Testosterone 1 pump TOP DAILY 03/30/22 [History Confirmed 10/14/22] Diphenoxylate HCl/Atropine [Lomotil] 1 tab PO QIDPRN PRN 07/28/22 [History Confirmed 10/14/22] Benzonatate 200 mg PO TIDPRN PRN 10/14/22 [History Confirmed 10/14/22] Torsemide 20 mg [Demadex 20 mg] 20 mg PO DAILY 10/14/22 [History Confirmed 10/14/22] Allergies/Adverse Reactions: Allergies Allergy/AdvReac Type Severity Reaction Status Date / Time lisinopril Allergy Mild Anaphylactic Verified 10/14/22 00:33 Reaction naproxen AdvReac Mild Rash Verified 10/14/22 00:33 - Past Medical History Past Medical History: Yes Neurological History: Peripheral Neuropathy ENT History: Cataracts Cardiac History: Hypertension Respiratory History: Asthma, COPD, Lung Cancer, Pneumonia, Other Endocrine Medical History: Diabetes Type II Musculoskelatal History: Fractures GI Medical History: GERD, Gallbladder Disease, Irritable Bowel, Other History: No Pertinent History Pyscho-Social History: No Pertinent History Male Reproductive Disorders: No Pertinent History Comment: HAS BEEN IN REMISSION FOR LUNG CANCER X 10 YEARS. HX FRACTURE RIBS AND T6, T7 6 YEARS AGO AFTER FALL FROM LADDER. 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 both cataracts removed- suboptical implant in;. rt middle lobe lung remove - Social History Smoking Status: Never smoker Exposure to second hand smoke: No Alcohol: None Drug Use: none Significant Family History: no pertinent family hx - Physical Exam Vital Signs: Vital Signs - 24 hr Temp Pulse Resp BP BP Pulse Ox 10/14/22 11:46 98.4 F 61 17 117/75 94 L 10/14/22 09:25 72 26 H 99 10/14/22 09:14 97.0 F 73 17 159/97 159/97 99 10/14/22 08:00 62 10/14/22 07:26 98.4 F 70 16 153/87 97 10/14/22 05:48 71 17 98 10/14/22 04:00 97.8 F 70 18 137/83 97 10/14/22 02:00 73 18 97 10/14/22 00:45 97.7 F 94 H 18 133/79 98 10/13/22 23:39 89 13 123/71 97 10/13/22 23:24 97 10/13/22 23:02 94 H 18 162/90 98 10/13/22 22:04 90 18 162/90 98 10/13/22 21:19 77 18 125/72 97 10/13/22 20:04 97.7 F 101 H 18 180/101 99 General Appearance: no apparent distress, alert Neurologic Exam: alert, oriented x 3, cooperative, normal mood/affect, nml cerebellar function, nml station & gait, sensation nml, No motor deficits Eye Exam: PERRL/EOMI, eyes nml inspection Ears, Nose, Throat Exam: normal ENT inspection, TMs normal, pharynx normal, dry mucous membranes Neck Exam: normal inspection, non-tender, supple, full range of motion Respiratory Exam: normal breath sounds, lungs clear, No respiratory distress Cardiovascular Exam: regular rate/rhythm, normal heart sounds, normal peripheral pulses Gastrointestinal/Abdomen Exam: soft, normal bowel sounds, No tenderness, No mass Back Exam: normal inspection, normal range of motion, No CVA tenderness, No vertebral tenderness Extremity Exam: normal inspection, normal range of motion, pelvis stable Skin Exam: normal color, warm, dry, No rash Lymphatic Exam: No adenopathy Results - Labs Lab/Micro Results: Lab Results-Last 24 Hours 10/13/22 10/13/22 10/13/22 Range/Units 20:04 20:29 20:42 WBC (4.0-10.5) x10^3/uL RBC (4.1-5.6) x10^6/uL Hgb (12.5-18.0) g/dL Hct (42-50) % MCV (78-100) fL MCH (26-32) pg MCHC (32-36) g/dL RDW (11.5-14.0) % Plt Count (150-450) x10^3/uL MPV (7.5-11.0) fL Gran % (36.0-66.0) % Immature Gran % (Auto) (0.00-0.4) % Nucleat RBC Rel Count (0.00-0.1) % Eos # (Auto) (0-0.5) x10^3/uL Immature Gran # (Auto) (0.00-0.03) x10^3u/L Absolute Lymphs (auto) (1.0-4.6) x10^3/uL Absolute Monos (auto) (0.0-1.3) x10^3/uL Absolute Nucleated RBC (0.00-0.01) x10^3u/L Lymphocytes % (24.0-44.0) % Monocytes % (0.0-12.0) % Eosinophils % (0.00-5.0) % Basophils % (0.0-0.4) % Absolute Granulocytes (1.4-6.9) x10^3/uL Basophils # (0-0.4) x10^3/uL Sodium (137-145) mmol/L Potassium (3.5-5.1) mmol/L Chloride (98-107) mmol/L Carbon Dioxide (22-30) mmol/L Anion Gap (5-15) MEQ/L BUN (9-20) mg/dL Creatinine (0.66-1.25) mg/dL Estimated GFR ML/MIN Glucose (74-106) mg/dL POC Glucometer 303 H (74 to 106) mg/dL Lactic Acid (0.4-2.0) Calcium (8.4-10.2) mg/dL Magnesium (1.6-2.3) mg/dL Total Bilirubin (0.2-1.3) mg/dL Direct Bilirubin (0.0-0.4) mg/dL AST (17-59) U/L ALT (0-50) U/L Alkaline Phosphatase (38-126) U/L Troponin I (0.000-0.034) ng/mL Serum Total Protein (6.3-8.2) g/dL Albumin (3.5-5.0) g/dL Amylase (30-110) U/L Lipase (23-300) U/L Urine Color Yellow (Yellow) Urine Appearance Clear (Clear) Urine pH 5.0 (4.6-8.0) Ur Specific [place] >=1.030 A (1.005-1.030) Urine Protein 30 (Negative) Urine Glucose (UA) >=1000 A (Negative) mg/dL Urine Ketones >=160 A (Negative) Urine Blood Negative (Negative) Urine Nitrite Negative (Negative) Urine Bilirubin Negative (Negative) Urine Urobilinogen 0.2 (0.2) mg/dL Ur Leukocyte Esterase Negative (Negative) U Hyaline Cast (Auto) NONE SEEN (0-2) /LPF Urine Microscopic RBC 0-2 (0-5) /HPF Urine Microscopic WBC 0-2 (0-5) /HPF Ur Epithelial Cells None Seen (None Seen) /HPF Urine Bacteria None Seen (None Seen) /HPF Urine Culture Reflexed NO (NO) Urine Opiates Level (NEGATIVE) Ur Methadone (NEGATIVE) Urine Barbiturates (NEGATIVE) Ur Phencyclidine (PCP) (NEGATIVE) Urine Amphetamine (NEGATIVE) U Benzodiazepine Level (NEGATIVE) Urine Cocaine (NEGATIVE) Urine Marijuana (THC) (NEGATIVE) C. difficile Screen NEGATIVE (NEGATIVE) C.difficile 027-NAP1-B1 PRESUMPTIVE NEGATIVE (NEGATIVE) Influenza Type A Ag (NEGATIVE) Influenza Type B Ag (NEGATIVE) RSV (PCR) (Negative) SARS-CoV-2 (PCR) (NEGATIVE) 10/13/22 10/13/22 10/13/22 Range/Units 20:42 20:45 20:45 WBC 10.4 (4.0-10.5) x10^3/uL RBC 5.33 (4.1-5.6) x10^6/uL Hgb 16.1 (12.5-18.0) g/dL Hct 49.4 (42-50) % MCV 92.7 (78-100) fL MCH 30.2 (26-32) pg MCHC 32.6 (32-36) g/dL RDW 13.3 (11.5-14.0) % Plt Count 296 (150-450) x10^3/uL MPV 9.9 (7.5-11.0) fL Gran % 88.1 H (36.0-66.0) % Immature Gran % (Auto) 0.5 H (0.00-0.4) % Nucleat RBC Rel Count 0.0 (0.00-0.1) % Eos # (Auto) 0.01 (0-0.5) x10^3/uL Immature Gran # (Auto) 0.05 H (0.00-0.03) x10^3u/L Absolute Lymphs (auto) 0.91 L (1.0-4.6) x10^3/uL Absolute Monos (auto) 0.24 (0.0-1.3) x10^3/uL Absolute Nucleated RBC 0.00 (0.00-0.01) x10^3u/L Lymphocytes % 8.8 L (24.0-44.0) % Monocytes % 2.3 (0.0-12.0) % Eosinophils % 0.1 (0.00-5.0) % Basophils % 0.2 (0.0-0.4) % Absolute Granulocytes 9.13 H (1.4-6.9) x10^3/uL Basophils # 0.02 (0-0.4) x10^3/uL Sodium 143 (137-145) mmol/L Potassium 4.6 (3.5-5.1) mmol/L Chloride 105 (98-107) mmol/L Carbon Dioxide 9 L* (22-30) mmol/L Anion Gap 34.1 H (5-15) MEQ/L BUN 31 H (9-20) mg/dL Creatinine 1.24 (0.66-1.25) mg/dL Estimated GFR > 60.0 ML/MIN Glucose 414 H (74-106) mg/dL POC Glucometer (74 to 106) mg/dL Lactic Acid (0.4-2.0) Calcium 9.8 (8.4-10.2) mg/dL Magnesium (1.6-2.3) mg/dL Total Bilirubin 0.90 (0.2-1.3) mg/dL Direct Bilirubin (0.0-0.4) mg/dL AST 21 (17-59) U/L ALT 24 (0-50) U/L Alkaline Phosphatase 136 H (38-126) U/L Troponin I (0.000-0.034) ng/mL Serum Total Protein 8.7 H (6.3-8.2) g/dL Albumin 5.2 H (3.5-5.0) g/dL Amylase 62 (30-110) U/L Lipase 20 L (23-300) U/L Urine Color (Yellow) Urine Appearance (Clear) Urine pH (4.6-8.0) Ur Specific [place] (1.005-1.030) Urine Protein (Negative) Urine Glucose (UA) (Negative) mg/dL Urine Ketones (Negative) Urine Blood (Negative) Urine Nitrite (Negative) Urine Bilirubin (Negative) Urine Urobilinogen (0.2) mg/dL Ur Leukocyte Esterase (Negative) U Hyaline Cast (Auto) (0-2) /LPF Urine Microscopic RBC (0-5) /HPF Urine Microscopic WBC (0-5) /HPF Ur Epithelial Cells (None Seen) /HPF Urine Bacteria (None Seen) /HPF Urine Culture Reflexed (NO) Urine Opiates Level NEGATIVE (NEGATIVE) Ur Methadone NEGATIVE (NEGATIVE) Urine Barbiturates NEGATIVE (NEGATIVE) Ur Phencyclidine (PCP) NEGATIVE (NEGATIVE) Urine Amphetamine NEGATIVE (NEGATIVE) U Benzodiazepine Level NEGATIVE (NEGATIVE) Urine Cocaine NEGATIVE (NEGATIVE) Urine Marijuana (THC) NEGATIVE (NEGATIVE) C. difficile Screen (NEGATIVE) C.difficile 027-NAP1-B1 (NEGATIVE) Influenza Type A Ag (NEGATIVE) Influenza Type B Ag (NEGATIVE) RSV (PCR) (Negative) SARS-CoV-2 (PCR) (NEGATIVE) 10/13/22 10/13/22 10/13/22 Range/Units 20:45 20:45 21:09 WBC (4.0-10.5) x10^3/uL RBC (4.1-5.6) x10^6/uL Hgb (12.5-18.0) g/dL Hct (42-50) % MCV (78-100) fL MCH (26-32) pg MCHC (32-36) g/dL RDW (11.5-14.0) % Plt Count (150-450) x10^3/uL MPV (7.5-11.0) fL Gran % (36.0-66.0) % Immature Gran % (Auto) (0.00-0.4) % Nucleat RBC Rel Count (0.00-0.1) % Eos # (Auto) (0-0.5) x10^3/uL Immature Gran # (Auto) (0.00-0.03) x10^3u/L Absolute Lymphs (auto) (1.0-4.6) x10^3/uL Absolute Monos (auto) (0.0-1.3) x10^3/uL Absolute Nucleated RBC (0.00-0.01) x10^3u/L Lymphocytes % (24.0-44.0) % Monocytes % (0.0-12.0) % Eosinophils % (0.00-5.0) % Basophils % (0.0-0.4) % Absolute Granulocytes (1.4-6.9) x10^3/uL Basophils # (0-0.4) x10^3/uL Sodium (137-145) mmol/L Potassium (3.5-5.1) mmol/L Chloride (98-107) mmol/L Carbon Dioxide (22-30) mmol/L Anion Gap (5-15) MEQ/L BUN (9-20) mg/dL Creatinine (0.66-1.25) mg/dL Estimated GFR ML/MIN Glucose (74-106) mg/dL POC Glucometer (74 to 106) mg/dL Lactic Acid 4.3 H (0.4-2.0) Calcium (8.4-10.2) mg/dL Magnesium (1.6-2.3) mg/dL Total Bilirubin (0.2-1.3) mg/dL Direct Bilirubin (0.0-0.4) mg/dL AST (17-59) U/L ALT (0-50) U/L Alkaline Phosphatase (38-126) U/L Troponin I < 0.012 (0.000-0.034) ng/mL Serum Total Protein (6.3-8.2) g/dL Albumin (3.5-5.0) g/dL Amylase (30-110) U/L Lipase (23-300) U/L Urine Color (Yellow) Urine Appearance (Clear) Urine pH (4.6-8.0) Ur Specific [place] (1.005-1.030) Urine Protein (Negative) Urine Glucose (UA) (Negative) mg/dL Urine Ketones (Negative) Urine Blood (Negative) Urine Nitrite (Negative) Urine Bilirubin (Negative) Urine Urobilinogen (0.2) mg/dL Ur Leukocyte Esterase (Negative) U Hyaline Cast (Auto) (0-2) /LPF Urine Microscopic RBC (0-5) /HPF Urine Microscopic WBC (0-5) /HPF Ur Epithelial Cells (None Seen) /HPF Urine Bacteria (None Seen) /HPF Urine Culture Reflexed (NO) Urine Opiates Level (NEGATIVE) Ur Methadone (NEGATIVE) Urine Barbiturates (NEGATIVE) Ur Phencyclidine (PCP) (NEGATIVE) Urine Amphetamine (NEGATIVE) U Benzodiazepine Level (NEGATIVE) Urine Cocaine (NEGATIVE) Urine Marijuana (THC) (NEGATIVE) C. difficile Screen (NEGATIVE) C.difficile 027-NAP1-B1 (NEGATIVE) Influenza Type A Ag NEGATIVE (NEGATIVE) Influenza Type B Ag NEGATIVE (NEGATIVE) RSV (PCR) NEGATIVE (Negative) SARS-CoV-2 (PCR) NEGATIVE (NEGATIVE) 10/13/22 10/13/22 10/14/22 Range/Units 23:08 23:16 00:15 WBC (4.0-10.5) x10^3/uL RBC (4.1-5.6) x10^6/uL Hgb (12.5-18.0) g/dL Hct (42-50) % MCV (78-100) fL MCH (26-32) pg MCHC (32-36) g/dL RDW (11.5-14.0) % Plt Count (150-450) x10^3/uL MPV (7.5-11.0) fL Gran % (36.0-66.0) % Immature Gran % (Auto) (0.00-0.4) % Nucleat RBC Rel Count (0.00-0.1) % Eos # (Auto) (0-0.5) x10^3/uL Immature Gran # (Auto) (0.00-0.03) x10^3u/L Absolute Lymphs (auto) (1.0-4.6) x10^3/uL Absolute Monos (auto) (0.0-1.3) x10^3/uL Absolute Nucleated RBC (0.00-0.01) x10^3u/L Lymphocytes % (24.0-44.0) % Monocytes % (0.0-12.0) % Eosinophils % (0.00-5.0) % Basophils % (0.0-0.4) % Absolute Granulocytes (1.4-6.9) x10^3/uL Basophils # (0-0.4) x10^3/uL Sodium (137-145) mmol/L Potassium (3.5-5.1) mmol/L Chloride (98-107) mmol/L Carbon Dioxide (22-30) mmol/L Anion Gap (5-15) MEQ/L BUN (9-20) mg/dL Creatinine (0.66-1.25) mg/dL Estimated GFR ML/MIN Glucose (74-106) mg/dL POC Glucometer 281 H 206 H (74 to 106) mg/dL Lactic Acid 2.8 H (0.4-2.0) Calcium (8.4-10.2) mg/dL Magnesium (1.6-2.3) mg/dL Total Bilirubin (0.2-1.3) mg/dL Direct Bilirubin (0.0-0.4) mg/dL AST (17-59) U/L ALT (0-50) U/L Alkaline Phosphatase (38-126) U/L Troponin I (0.000-0.034) ng/mL Serum Total Protein (6.3-8.2) g/dL Albumin (3.5-5.0) g/dL Amylase (30-110) U/L Lipase (23-300) U/L Urine Color (Yellow) Urine Appearance (Clear) Urine pH (4.6-8.0) Ur Specific [place] (1.005-1.030) Urine Protein (Negative) Urine Glucose (UA) (Negative) mg/dL Urine Ketones (Negative) Urine Blood (Negative) Urine Nitrite (Negative) Urine Bilirubin (Negative) Urine Urobilinogen (0.2) mg/dL Ur Leukocyte Esterase (Negative) U Hyaline Cast (Auto) (0-2) /LPF Urine Microscopic RBC (0-5) /HPF Urine Microscopic WBC (0-5) /HPF Ur Epithelial Cells (None Seen) /HPF Urine Bacteria (None Seen) /HPF Urine Culture Reflexed (NO) Urine Opiates Level (NEGATIVE) Ur Methadone (NEGATIVE) Urine Barbiturates (NEGATIVE) Ur Phencyclidine (PCP) (NEGATIVE) Urine Amphetamine (NEGATIVE) U Benzodiazepine Level (NEGATIVE) Urine Cocaine (NEGATIVE) Urine Marijuana (THC) (NEGATIVE) C. difficile Screen (NEGATIVE) C.difficile 027-NAP1-B1 (NEGATIVE) Influenza Type A Ag (NEGATIVE) Influenza Type B Ag (NEGATIVE) RSV (PCR) (Negative) SARS-CoV-2 (PCR) (NEGATIVE) 10/14/22 10/14/22 10/14/22 Range/Units 00:45 01:05 02:03 WBC (4.0-10.5) x10^3/uL RBC (4.1-5.6) x10^6/uL Hgb (12.5-18.0) g/dL Hct (42-50) % MCV (78-100) fL MCH (26-32) pg MCHC (32-36) g/dL RDW (11.5-14.0) % Plt Count (150-450) x10^3/uL MPV (7.5-11.0) fL Gran % (36.0-66.0) % Immature Gran % (Auto) (0.00-0.4) % Nucleat RBC Rel Count (0.00-0.1) % Eos # (Auto) (0-0.5) x10^3/uL Immature Gran # (Auto) (0.00-0.03) x10^3u/L Absolute Lymphs (auto) (1.0-4.6) x10^3/uL Absolute Monos (auto) (0.0-1.3) x10^3/uL Absolute Nucleated RBC (0.00-0.01) x10^3u/L Lymphocytes % (24.0-44.0) % Monocytes % (0.0-12.0) % Eosinophils % (0.00-5.0) % Basophils % (0.0-0.4) % Absolute Granulocytes (1.4-6.9) x10^3/uL Basophils # (0-0.4) x10^3/uL Sodium 145 (137-145) mmol/L Potassium 4.3 (3.5-5.1) mmol/L Chloride 112 H (98-107) mmol/L Carbon Dioxide 15 L* (22-30) mmol/L Anion Gap 21.9 H (5-15) MEQ/L BUN 30 H (9-20) mg/dL Creatinine 1.05 (0.66-1.25) mg/dL Estimated GFR > 60.0 ML/MIN Glucose 217 H (74-106) mg/dL POC Glucometer 196 H 176 H (74 to 106) mg/dL Lactic Acid (0.4-2.0) Calcium 8.9 (8.4-10.2) mg/dL Magnesium 2.2 (1.6-2.3) mg/dL Total Bilirubin 0.60 (0.2-1.3) mg/dL Direct Bilirubin 0.1 (0.0-0.4) mg/dL AST 19 (17-59) U/L ALT 19 (0-50) U/L Alkaline Phosphatase 93 (38-126) U/L Troponin I 0.034 (0.000-0.034) ng/mL Serum Total Protein 7.2 (6.3-8.2) g/dL Albumin 4.2 (3.5-5.0) g/dL Amylase (30-110) U/L Lipase (23-300) U/L Urine Color (Yellow) Urine Appearance (Clear) Urine pH (4.6-8.0) Ur Specific [place] (1.005-1.030) Urine Protein (Negative) Urine Glucose (UA) (Negative) mg/dL Urine Ketones (Negative) Urine Blood (Negative) Urine Nitrite (Negative) Urine Bilirubin (Negative) Urine Urobilinogen (0.2) mg/dL Ur Leukocyte Esterase (Negative) U Hyaline Cast (Auto) (0-2) /LPF Urine Microscopic RBC (0-5) /HPF Urine Microscopic WBC (0-5) /HPF Ur Epithelial Cells (None Seen) /HPF Urine Bacteria (None Seen) /HPF Urine Culture Reflexed (NO) Urine Opiates Level (NEGATIVE) Ur Methadone (NEGATIVE) Urine Barbiturates (NEGATIVE) Ur Phencyclidine (PCP) (NEGATIVE) Urine Amphetamine (NEGATIVE) U Benzodiazepine Level (NEGATIVE) Urine Cocaine (NEGATIVE) Urine Marijuana (THC) (NEGATIVE) C. difficile Screen (NEGATIVE) C.difficile 027-NAP1-B1 (NEGATIVE) Influenza Type A Ag (NEGATIVE) Influenza Type B Ag (NEGATIVE) RSV (PCR) (Negative) SARS-CoV-2 (PCR) (NEGATIVE) 10/14/22 10/14/22 10/14/22 Range/Units 02:59 04:10 05:00 WBC (4.0-10.5) x10^3/uL RBC (4.1-5.6) x10^6/uL Hgb (12.5-18.0) g/dL Hct (42-50) % MCV (78-100) fL MCH (26-32) pg MCHC (32-36) g/dL RDW (11.5-14.0) % Plt Count (150-450) x10^3/uL MPV (7.5-11.0) fL Gran % (36.0-66.0) % Immature Gran % (Auto) (0.00-0.4) % Nucleat RBC Rel Count (0.00-0.1) % Eos # (Auto) (0-0.5) x10^3/uL Immature Gran # (Auto) (0.00-0.03) x10^3u/L Absolute Lymphs (auto) (1.0-4.6) x10^3/uL Absolute Monos (auto) (0.0-1.3) x10^3/uL Absolute Nucleated RBC (0.00-0.01) x10^3u/L Lymphocytes % (24.0-44.0) % Monocytes % (0.0-12.0) % Eosinophils % (0.00-5.0) % Basophils % (0.0-0.4) % Absolute Granulocytes (1.4-6.9) x10^3/uL Basophils # (0-0.4) x10^3/uL Sodium Cancelled (137-145) mmol/L Potassium Cancelled (3.5-5.1) mmol/L Chloride Cancelled (98-107) mmol/L Carbon Dioxide Cancelled (22-30) mmol/L Anion Gap Cancelled (5-15) MEQ/L BUN Cancelled (9-20) mg/dL Creatinine Cancelled (0.66-1.25) mg/dL Estimated GFR Cancelled ML/MIN Glucose Cancelled (74-106) mg/dL POC Glucometer 193 H 189 H (74 to 106) mg/dL Lactic Acid (0.4-2.0) Calcium Cancelled (8.4-10.2) mg/dL Magnesium (1.6-2.3) mg/dL Total Bilirubin Cancelled (0.2-1.3) mg/dL Direct Bilirubin Cancelled (0.0-0.4) mg/dL AST Cancelled (17-59) U/L ALT Cancelled (0-50) U/L Alkaline Phosphatase Cancelled (38-126) U/L Troponin I (0.000-0.034) ng/mL Serum Total Protein Cancelled (6.3-8.2) g/dL Albumin Cancelled (3.5-5.0) g/dL Amylase (30-110) U/L Lipase (23-300) U/L Urine Color (Yellow) Urine Appearance (Clear) Urine pH (4.6-8.0) Ur Specific [place] (1.005-1.030) Urine Protein (Negative) Urine Glucose (UA) (Negative) mg/dL Urine Ketones (Negative) Urine Blood (Negative) Urine Nitrite (Negative) Urine Bilirubin (Negative) Urine Urobilinogen (0.2) mg/dL Ur Leukocyte Esterase (Negative) U Hyaline Cast (Auto) (0-2) /LPF Urine Microscopic RBC (0-5) /HPF Urine Microscopic WBC (0-5) /HPF Ur Epithelial Cells (None Seen) /HPF Urine Bacteria (None Seen) /HPF Urine Culture Reflexed (NO) Urine Opiates Level (NEGATIVE) Ur Methadone (NEGATIVE) Urine Barbiturates (NEGATIVE) Ur Phencyclidine (PCP) (NEGATIVE) Urine Amphetamine (NEGATIVE) U Benzodiazepine Level (NEGATIVE) Urine Cocaine (NEGATIVE) Urine Marijuana (THC) (NEGATIVE) C. difficile Screen (NEGATIVE) C.difficile 027-[id number] (NEGATIVE) Influenza Type A Ag (NEGATIVE) Influenza Type B Ag (NEGATIVE) RSV (PCR) (Negative) SARS-CoV-2 (PCR) (NEGATIVE) 10/14/22 10/14/22 10/14/22 Range/Units 05:05 05:05 05:14 WBC (4.0-10.5) x10^3/uL RBC (4.1-5.6) x10^6/uL Hgb (12.5-18.0) g/dL Hct (42-50) % MCV (78-100) fL MCH (26-32) pg MCHC (32-36) g/dL RDW (11.5-14.0) % Plt Count (150-450) x10^3/uL MPV (7.5-11.0) fL Gran % (36.0-66.0) % Immature Gran % (Auto) (0.00-0.4) % Nucleat RBC Rel Count (0.00-0.1) % Eos # (Auto) (0-0.5) x10^3/uL Immature Gran # (Auto) (0.00-0.03) x10^3u/L Absolute Lymphs (auto) (1.0-4.6) x10^3/uL Absolute Monos (auto) (0.0-1.3) x10^3/uL Absolute Nucleated RBC (0.00-0.01) x10^3u/L Lymphocytes % (24.0-44.0) % Monocytes % (0.0-12.0) % Eosinophils % (0.00-5.0) % Basophils % (0.0-0.4) % Absolute Granulocytes (1.4-6.9) x10^3/uL Basophils # (0-0.4) x10^3/uL Sodium 134 L D (137-145) mmol/L Potassium 3.8 (3.5-5.1) mmol/L Chloride 105 (98-107) mmol/L Carbon Dioxide 20 L (22-30) mmol/L Anion Gap 12.0 (5-15) MEQ/L BUN 26 H (9-20) mg/dL Creatinine 0.81 (0.66-1.25) mg/dL Estimated GFR > 60.0 ML/MIN Glucose 193 H (74-106) mg/dL POC Glucometer 179 H (74 to 106) mg/dL Lactic Acid (0.4-2.0) Calcium 8.1 L (8.4-10.2) mg/dL Magnesium (1.6-2.3) mg/dL Total Bilirubin 0.60 (0.2-1.3) mg/dL Direct Bilirubin 0.1 (0.0-0.4) mg/dL AST 25 (17-59) U/L ALT 17 (0-50) U/L Alkaline Phosphatase 82 (38-126) U/L Troponin I 0.291 H* (0.000-0.034) ng/mL Serum Total Protein 6.4 (6.3-8.2) g/dL Albumin 3.6 (3.5-5.0) g/dL Amylase (30-110) U/L Lipase (23-300) U/L Urine Color (Yellow) Urine Appearance (Clear) Urine pH (4.6-8.0) Ur Specific [place] (1.005-1.030) Urine Protein (Negative) Urine Glucose (UA) (Negative) mg/dL Urine Ketones (Negative) Urine Blood (Negative) Urine Nitrite (Negative) Urine Bilirubin (Negative) Urine Urobilinogen (0.2) mg/dL Ur Leukocyte Esterase (Negative) U Hyaline Cast (Auto) (0-2) /LPF Urine Microscopic RBC (0-5) /HPF Urine Microscopic WBC (0-5) /HPF Ur Epithelial Cells (None Seen) /HPF Urine Bacteria (None Seen) /HPF Urine Culture Reflexed (NO) Urine Opiates Level (NEGATIVE) Ur Methadone (NEGATIVE) Urine Barbiturates (NEGATIVE) Ur Phencyclidine (PCP) (NEGATIVE) Urine Amphetamine (NEGATIVE) U Benzodiazepine Level (NEGATIVE) Urine Cocaine (NEGATIVE) Urine Marijuana (THC) (NEGATIVE) C. difficile Screen (NEGATIVE) C.difficile [id number] (NEGATIVE) Influenza Type A Ag (NEGATIVE) Influenza Type B Ag (NEGATIVE) RSV (PCR) (Negative) SARS-CoV-2 (PCR) (NEGATIVE) 10/14/22 10/14/22 10/14/22 Range/Units 06:03 06:58 07:58 WBC (4.0-10.5) x10^3/uL RBC (4.1-5.6) x10^6/uL Hgb (12.5-18.0) g/dL Hct (42-50) % MCV (78-100) fL MCH (26-32) pg MCHC (32-36) g/dL RDW (11.5-14.0) % Plt Count (150-450) x10^3/uL MPV (7.5-11.0) fL Gran % (36.0-66.0) % Immature Gran % (Auto) (0.00-0.4) % Nucleat RBC Rel Count (0.00-0.1) % Eos # (Auto) (0-0.5) x10^3/uL Immature Gran # (Auto) (0.00-0.03) x10^3u/L Absolute Lymphs (auto) (1.0-4.6) x10^3/uL Absolute Monos (auto) (0.0-1.3) x10^3/uL Absolute Nucleated RBC (0.00-0.01) x10^3u/L Lymphocytes % (24.0-44.0) % Monocytes % (0.0-12.0) % Eosinophils % (0.00-5.0) % Basophils % (0.0-0.4) % Absolute Granulocytes (1.4-6.9) x10^3/uL Basophils # (0-0.4) x10^3/uL Sodium (137-145) mmol/L Potassium (3.5-5.1) mmol/L Chloride (98-107) mmol/L Carbon Dioxide (22-30) mmol/L Anion Gap (5-15) MEQ/L BUN (9-20) mg/dL Creatinine (0.66-1.25) mg/dL Estimated GFR ML/MIN Glucose (74-106) mg/dL POC Glucometer 155 H 156 H 116 H (74 to 106) mg/dL Lactic Acid (0.4-2.0) Calcium (8.4-10.2) mg/dL Magnesium (1.6-2.3) mg/dL Total Bilirubin (0.2-1.3) mg/dL Direct Bilirubin (0.0-0.4) mg/dL AST (17-59) U/L ALT (0-50) U/L Alkaline Phosphatase (38-126) U/L Troponin I (0.000-0.034) ng/mL Serum Total Protein (6.3-8.2) g/dL Albumin (3.5-5.0) g/dL Amylase (30-110) U/L Lipase (23-300) U/L Urine Color (Yellow) Urine Appearance (Clear) Urine pH (4.6-8.0) Ur Specific [place] (1.005-1.030) Urine Protein (Negative) Urine Glucose (UA) (Negative) mg/dL Urine Ketones (Negative) Urine Blood (Negative) Urine Nitrite (Negative) Urine Bilirubin (Negative) Urine Urobilinogen (0.2) mg/dL Ur Leukocyte Esterase (Negative) U Hyaline Cast (Auto) (0-2) /LPF Urine Microscopic RBC (0-5) /HPF Urine Microscopic WBC (0-5) /HPF Ur Epithelial Cells (None Seen) /HPF Urine Bacteria (None Seen) /HPF Urine Culture Reflexed (NO) Urine Opiates Level (NEGATIVE) Ur Methadone (NEGATIVE) Urine Barbiturates (NEGATIVE) Ur Phencyclidine (PCP) (NEGATIVE) Urine Amphetamine (NEGATIVE) U Benzodiazepine Level (NEGATIVE) Urine Cocaine (NEGATIVE) Urine Marijuana (THC) (NEGATIVE) C. difficile Screen (NEGATIVE) C.difficile 027-NAP1-B1 (NEGATIVE) Influenza Type A Ag (NEGATIVE) Influenza Type B Ag (NEGATIVE) RSV (PCR) (Negative) SARS-CoV-2 (PCR) (NEGATIVE) 10/14/22 10/14/22 10/14/22 Range/Units 09:17 09:17 11:18 WBC (4.0-10.5) x10^3/uL RBC (4.1-5.6) x10^6/uL Hgb (12.5-18.0) g/dL Hct (42-50) % MCV (78-100) fL MCH (26-32) pg MCHC (32-36) g/dL RDW (11.5-14.0) % Plt Count (150-450) x10^3/uL MPV (7.5-11.0) fL Gran % (36.0-66.0) % Immature Gran % (Auto) (0.00-0.4) % Nucleat RBC Rel Count (0.00-0.1) % Eos # (Auto) (0-0.5) x10^3/uL Immature Gran # (Auto) (0.00-0.03) x10^3u/L Absolute Lymphs (auto) (1.0-4.6) x10^3/uL Absolute Monos (auto) (0.0-1.3) x10^3/uL Absolute Nucleated RBC (0.00-0.01) x10^3u/L Lymphocytes % (24.0-44.0) % Monocytes % (0.0-12.0) % Eosinophils % (0.00-5.0) % Basophils % (0.0-0.4) % Absolute Granulocytes (1.4-6.9) x10^3/uL Basophils # (0-0.4) x10^3/uL Sodium 135 L (137-145) mmol/L Potassium 3.6 (3.5-5.1) mmol/L Chloride 104 (98-107) mmol/L Carbon Dioxide 24 (22-30) mmol/L Anion Gap 10.8 (5-15) MEQ/L BUN 20 (9-20) mg/dL Creatinine 0.81 (0.66-1.25) mg/dL Estimated GFR > 60.0 ML/MIN Glucose 101 (74-106) mg/dL POC Glucometer 126 H (74 to 106) mg/dL Lactic Acid (0.4-2.0) Calcium 8.3 L (8.4-10.2) mg/dL Magnesium (1.6-2.3) mg/dL Total Bilirubin 0.70 (0.2-1.3) mg/dL Direct Bilirubin 0 (0.0-0.4) mg/dL AST 24 (17-59) U/L ALT 17 (0-50) U/L Alkaline Phosphatase 92 (38-126) U/L Troponin I 0.871 H* (0.000-0.034) ng/mL Serum Total Protein 6.5 (6.3-8.2) g/dL Albumin 3.8 (3.5-5.0) g/dL Amylase (30-110) U/L Lipase (23-300) U/L Urine Color (Yellow) Urine Appearance (Clear) Urine pH (4.6-8.0) Ur Specific [place] (1.005-1.030) Urine Protein (Negative) Urine Glucose (UA) (Negative) mg/dL Urine Ketones (Negative) Urine Blood (Negative) Urine Nitrite (Negative) Urine Bilirubin (Negative) Urine Urobilinogen (0.2) mg/dL Ur Leukocyte Esterase (Negative) U Hyaline Cast (Auto) (0-2) /LPF Urine Microscopic RBC (0-5) /HPF Urine Microscopic WBC (0-5) /HPF Ur Epithelial Cells (None Seen) /HPF Urine Bacteria (None Seen) /HPF Urine Culture Reflexed (NO) Urine Opiates Level (NEGATIVE) Ur Methadone (NEGATIVE) Urine Barbiturates (NEGATIVE) Ur Phencyclidine (PCP) (NEGATIVE) Urine Amphetamine (NEGATIVE) U Benzodiazepine Level (NEGATIVE) Urine Cocaine (NEGATIVE) Urine Marijuana (THC) (NEGATIVE) C. difficile Screen (NEGATIVE) C.difficile 027-NAP1-B1 (NEGATIVE) Influenza Type A Ag (NEGATIVE) Influenza Type B Ag (NEGATIVE) RSV (PCR) (Negative) SARS-CoV-2 (PCR) (NEGATIVE) Accuchecks Date 10/14/22 Date 10/13/22 Time 11:46 Time 20:04 - Radiology Impressions Radiology Exams & Impressions: Radiology Procedures Category Date Time Status ABDOMEN AND PELVIS W CONTRAST [CT] Stat Exams 10/13/22 20:28 Completed - Other Procedures and Tests Respiratory Therapy 10/14/22 09:25 Respiratory Therapy Assessment DAILY Assessment/Plan (1) Diabetic ketoacidosis Current Visit: Yes Status: Acute Qualifiers: Diabetes mellitus type: type 2 Diabetes mellitus complication detail: without coma Qualified Code(s): E11.10 - Type 2 diabetes mellitus with ketoacidosis without coma Assessment & Plan: Chief Complaint Diagnosis DKA Allergies Allergy/AdvReac Type Severity Reaction Status Date / Time lisinopril Allergy Mild Anaphylactic Verified 10/14/22 00:33 Reaction naproxen AdvReac Mild Rash Verified 10/14/22 00:33 Vital Signs (Last 24 hours) Temp Pulse Resp BP BP Pulse Ox 10/14/22 11:46 98.4 F 61 17 117/75 94 L 10/14/22 09:25 72 26 H 99 10/14/22 09:14 97.0 F 73 17 159/97 159/97 99 10/14/22 08:00 62 10/14/22 07:26 98.4 F 70 16 153/87 97 10/14/22 05:48 71 17 98 10/14/22 04:00 97.8 F 70 18 137/83 97 03/14/23 02:00 73 18 97 10/14/22 00:45 97.7 F 94 H 18 133/79 98 10/13/22 23:39 89 13 123/71 97 10/13/22 23:24 97 10/13/22 23:02 94 H 18 162/90 98 10/13/22 22:04 90 18 162/90 98 10/13/22 21:19 77 18 125/72 97 10/13/22 20:04 97.7 F 101 H 18 180/101 99 Home Medications Medication Instructions Recorded Confirmed Last Taken Type Benzonatate 200 mg PO TIDPRN PRN 10/14/22 10/14/22 Unknown History Torsemide 20 mg [Demadex 20 20 mg PO DAILY 10/14/22 10/14/22 Unknown History mg] Current Medications Generic Name Dose Route Start Last Admin Trade Name Freq PRN Reason Stop Dose Admin Acetaminophen 650 mg 10/14/22 00:34 10/14/22 00:44 Acetaminophen 325 Mg Tablet PO 11/13/22 00:33 650 mg Q6H PRN PRN Administration PAIN AND/OR FEVER Albuterol Sulfate 2.5 mg 10/14/22 08:29 Albuterol Sulfate 2.5 Mg/3 Ml Neb 11/13/22 08:28 QID PRN PRN sob Albuterol Sulfate 2 puff 10/14/22 08:29 Albuterol Common Canister Inhaler 11/13/22 08:28 QIDPRN PRN sob Amlodipine Besylate 10 mg 10/14/22 10:00 10/14/22 09:17 Amlodipine Besylate 5 Mg Tablet PO 11/13/22 09:59 10 mg BID LEONIE Administration Benzonatate 200 mg 10/14/22 08:32 Benzonatate 100 Mg Capsule PO 11/13/22 08:31 TIDPRN PRN COUGH Diphenoxylate HCl/Atropine 1 tablet 10/14/22 08:29 10/14/22 09:26 Diphenoxylate Hcl/Atropine 1 Tablet PO 11/13/22 08:28 1 tablet QIDPRN PRN Administration DIARRHEA Empagliflozin 25 mg 10/14/22 10:00 10/14/22 09:18 Empagliflozin 10 Mg Tablet PO 11/13/22 09:59 25 mg DAILY LEONIE Administration Ergocalciferol 50,000 unit 10/16/22 10:00 Ergocalciferol (Vitamin D2) 50,000 Unit Capsule PO 11/15/22 09:59 MoTh@1000 LEONIE Gabapentin 600 mg 10/14/22 10:00 10/14/22 09:18 Gabapentin 300 Mg Capsule PO 11/13/22 09:59 600 mg TID LEONIE Administration Hydromorphone HCl 1 mg 10/13/22 23:27 Hydromorphone 1 Mg/1ml Inj 1 Mg/Ml Syringe IV 10/18/22 23:26 Q4H PRN PRN PAIN Sodium Chloride 1,000 mls @ 100 mls/hr 10/13/22 23:30 10/14/22 07:12 Sodium Chloride 0.9% 1000 Ml IV 11/12/22 23:29 150 mls/hr .Q10H LEONIE Administration Insulin Glargine 20 unit 10/14/22 10:00 10/14/22 06:21 Insulin Glargine 1 Unit SQ 11/13/22 09:59 20 unit BID LEONIE Administration Insulin Human Lispro 0 unit 10/14/22 06:08 Insulin Lispro 1 Unit SQ 11/13/22 06:07 UD PRN HYPERGLYCEMIA Metoprolol Tartrate 25 mg 10/14/22 10:00 10/14/22 09:17 Metoprolol Tartrate 25 Mg Tab PO 11/13/22 09:59 25 mg BID LEONIE Administration Ondansetron HCl 4 mg 10/13/22 23:27 10/14/22 07:51 Ondansetron Hcl 4 Mg/2 Ml Vial IV 11/12/22 23:26 4 mg Q6H PRN PRN Administration NAUSEA/VOMITING Pantoprazole Sodium 40 mg 10/14/22 10:00 10/14/22 09:18 Protonix (Pantoprazole) 40 Mg Tablet PO 11/13/22 09:59 40 mg BID LEONIE Administration Torsemide 20 mg 10/14/22 10:00 10/14/22 09:18 Torsemide 20 Mg Tablet PO 11/13/22 09:59 20 mg DAILY LEONIE Administration Discontinued Medications Generic Name Dose Route Start Last Admin Trade Name Freq PRN Reason Stop Dose Admin Hydromorphone HCl 1 mg 10/13/22 20:27 10/13/22 20:48 Hydromorphone 1 Mg/1ml Inj 1 Mg/Ml Syringe IV 10/13/22 20:28 1 mg STAT ONE Administration Hydromorphone HCl Confirm 10/13/22 20:44 Hydromorphone 1 Mg/1ml Inj 1 Mg/Ml Syringe Administered 10/13/22 20:45 Dose 1 mg .ROUTE .STK-MED ONE Sodium Chloride 1,000 mls @ 999 mls/hr 10/13/22 20:48 10/13/22 21:51 Sodium Chloride 0.9% 1000 Ml IV 10/13/22 21:48 Infused .Q1H1M STA Infusion Sodium Chloride Confirm 10/13/22 20:49 Sodium Chloride 0.9% 1000 Ml Administered 10/13/22 20:50 Dose 1,000 mls @ ud .ROUTE .STK-MED ONE Sodium Chloride 1,000 mls @ 999 mls/hr 10/13/22 21:58 10/13/22 22:22 Sodium Chloride 0.9% 1000 Ml IV 10/13/22 22:58 999 mls/hr .Q1H1M STA Administration Insulin Human Regular 100 unit 100 mls @ 7.76 mls/hr 10/13/22 21:58 10/14/22 06:00 / Sodium Chloride IV 11/12/22 21:57 0.04 unit/kg/hr .[id number] PRN 3 mls/hr DKA/HYPERGLYCEMIA Titration Protocol 0.1 UNIT/KG/HR Sodium Chloride Confirm 10/13/22 22:16 Sodium Chloride 0.9% Administered 10/13/22 22:17 Dose 100 mls @ ud .ROUTE .STK-MED ONE Sodium Chloride Confirm 10/13/22 22:16 Sodium Chloride 0.9% 1000 Ml Administered 10/13/22 22:17 Dose 1,000 mls @ ud .ROUTE .STK-MED ONE Potassium Chloride/Dextrose/Sod Cl Confirm 10/14/22 00:20 D5w/0.45ns W/ 20meq Kcl 1000 Ml Administered 10/14/22 00:21 Dose 1,000 mls @ ud IV .STK-MED ONE Potassium Chloride/Dextrose/Sod Cl 1,000 mls @ 150 mls/hr 10/14/22 00:30 10/14/22 00:24 D5w/0.45ns W/ 20meq Kcl 1000 Ml IV 11/13/22 00:29 150 mls/hr .Q6H40M LEONIE Administration Insulin Human Regular 10 unit 10/13/22 21:58 10/13/22 22:23 Insulin Regular, Human 1 Unit IV 10/13/22 21:59 10 unit STAT ONE Administration Insulin Human Regular Confirm 10/13/22 22:16 Insulin Regular, Human 1 Unit Administered 10/13/22 22:17 Dose 110 unit .ROUTE .STK-MED ONE Metoclopramide HCl 10 mg 10/13/22 20:27 10/13/22 20:48 Metoclopramide Hcl 10 Mg/2 Ml Vial IV 10/13/22 20:28 10 mg STAT ONE Administration Metoclopramide HCl Confirm 10/13/22 20:44 Metoclopramide Hcl 10 Mg/2 Ml Vial Administered 10/13/22 20:45 Dose 10 mg .ROUTE .STK-MED ONE Intake & Output (Last 24 hours) 10/12/22 10/13/22 10/14/22 10/15/22 11:59 11:59 11:59 11:59 Intake Total 2339 Output Total 360 Balance 1979 Weight 78 kg Microbiology Results (Last 24 hours) 10/13/22 20:30 Stool Vibrio Culture - Pending 10/13/22 20:30 Stool - Pending 10/13/22 20:30 Stool - Pending 10/13/22 20:30 Stool - Pending 10/13/22 20:30 Stool - Pending 10/13/22 20:30 Stool Stool Culture Organism Suscept - Pending 10/13/22 20:30 Stool [place] Culture - Pending 10/13/22 20:30 Stool - Pending 10/13/22 20:30 Stool - Pending 10/13/22 20:30 Stool - Pending 10/13/22 20:30 Stool - Pending 10/13/22 20:30 Stool Stool Culture Organism Suscept - Pending 10/13/22 20:30 Stool Ova and Parasite Concentrate Exam - Pending 10/13/22 20:30 Stool Ova and Parasite Result 1 - Pending 10/13/22 20:30 Stool Ova and Parasite Result 2 - Pending 10/13/22 20:30 Stool Ova and Parasite Result 3 - Pending 10/13/22 20:30 Stool Ova and Parasite Result 4 - Pending 10/13/22 20:30 Stool Antimicrobic Susceptibility - Pending 10/13/22 20:30 Stool Giardia lamblia (PCR) - Pending 10/13/22 20:30 Stool Cryptosporidium Antigen - Pending Laboratory Results (Last 24 hours) 10/14/22 10/14/22 10/14/22 11:18 09:17 09:17 WBC RBC Hgb Hct MCV MCH MCHC RDW Plt Count MPV Gran % Immature Gran % (Auto) Nucleat RBC Rel Count Eos # (Auto) Immature Gran # (Auto) Absolute Lymphs (auto) Absolute Monos (auto) Absolute Nucleated RBC Lymphocytes % Monocytes % Eosinophils % Basophils % Absolute Granulocytes Basophils # Sodium 135 L Potassium 3.6 Chloride 104 Carbon Dioxide 24 Anion Gap 10.8 BUN 20 Creatinine 0.81 Estimated GFR > 60.0 Glucose 101 POC Glucometer 126 H Lactic Acid Calcium 8.3 L Magnesium Total Bilirubin 0.70 Direct Bilirubin 0 AST 24 ALT 17 Alkaline Phosphatase 92 Troponin I 0.871 H* Serum Total Protein 6.5 Albumin 3.8 Amylase Lipase Urine Color Urine Appearance Urine pH Ur Specific [place] Urine Protein Urine Glucose (UA) Urine Ketones Urine Blood Urine Nitrite Urine Bilirubin Urine Urobilinogen Ur Leukocyte Esterase U Hyaline Cast (Auto) Urine Microscopic RBC Urine Microscopic WBC Ur Epithelial Cells Urine Bacteria Urine Culture Reflexed Urine Opiates Level Ur Methadone Urine Barbiturates Ur Phencyclidine (PCP) Urine Amphetamine U Benzodiazepine Level Urine Cocaine Urine Marijuana (THC) C. difficile Screen C.difficile 027-NAP1-B1 Influenza Type A Ag Influenza Type B Ag RSV (PCR) SARS-CoV-2 (PCR) 10/14/22 10/14/22 10/14/22 07:58 06:58 06:03 WBC RBC Hgb Hct MCV MCH MCHC RDW Plt Count MPV Gran % Immature Gran % (Auto) Nucleat RBC Rel Count Eos # (Auto) Immature Gran # (Auto) Absolute Lymphs (auto) Absolute Monos (auto) Absolute Nucleated RBC Lymphocytes % Monocytes % Eosinophils % Basophils % Absolute Granulocytes Basophils # Sodium Potassium Chloride Carbon Dioxide Anion Gap BUN Creatinine Estimated GFR Glucose POC Glucometer 116 H 156 H 155 H Lactic Acid Calcium Magnesium Total Bilirubin Direct Bilirubin AST ALT Alkaline Phosphatase Troponin I Serum Total Protein Albumin Amylase Lipase Urine Color Urine Appearance Urine pH Ur Specific [place] Urine Protein Urine Glucose (UA) Urine Ketones Urine Blood Urine Nitrite Urine Bilirubin Urine Urobilinogen Ur Leukocyte Esterase U Hyaline Cast (Auto) Urine Microscopic RBC Urine Microscopic WBC Ur Epithelial Cells Urine Bacteria Urine Culture Reflexed Urine Opiates Level Ur Methadone Urine Barbiturates Ur Phencyclidine (PCP) Urine Amphetamine U Benzodiazepine Level Urine Cocaine Urine Marijuana (THC) C. difficile Screen C.difficile 027-NAP1-B1 Influenza Type A Ag Influenza Type B Ag RSV (PCR) SARS-CoV-2 (PCR) 10/14/22 10/14/22 10/14/22 05:14 05:05 05:05 WBC RBC Hgb Hct MCV MCH MCHC RDW Plt Count MPV Gran % Immature Gran % (Auto) Nucleat RBC Rel Count Eos # (Auto) Immature Gran # (Auto) Absolute Lymphs (auto) Absolute Monos (auto) Absolute Nucleated RBC Lymphocytes % Monocytes % Eosinophils % Basophils % Absolute Granulocytes Basophils # Sodium 134 L D Potassium 3.8 Chloride 105 Carbon Dioxide 20 L Anion Gap 12.0 BUN 26 H Creatinine 0.81 Estimated GFR > 60.0 Glucose 193 H POC Glucometer 179 H Lactic Acid Calcium 8.1 L Magnesium Total Bilirubin 0.60 Direct Bilirubin 0.1 AST 25 ALT 17 Alkaline Phosphatase 82 Troponin I 0.291 H* Serum Total Protein 6.4 Albumin 3.6 Amylase Lipase Urine Color Urine Appearance Urine pH Ur Specific [place] Urine Protein Urine Glucose (UA) Urine Ketones Urine Blood Urine Nitrite Urine Bilirubin Urine Urobilinogen Ur Leukocyte Esterase U Hyaline Cast (Auto) Urine Microscopic RBC Urine Microscopic WBC Ur Epithelial Cells Urine Bacteria Urine Culture Reflexed Urine Opiates Level Ur Methadone Urine Barbiturates Ur Phencyclidine (PCP) Urine Amphetamine U Benzodiazepine Level Urine Cocaine Urine Marijuana (THC) C. difficile Screen C.difficile 027-NAP1-B1 Influenza Type A Ag Influenza Type B Ag RSV (PCR) SARS-CoV-2 (PCR) 10/14/22 10/14/22 10/14/22 05:00 04:10 02:59 WBC RBC Hgb Hct MCV MCH MCHC RDW Plt Count MPV Gran % Immature Gran % (Auto) Nucleat RBC Rel Count Eos # (Auto) Immature Gran # (Auto) Absolute Lymphs (auto) Absolute Monos (auto) Absolute Nucleated RBC Lymphocytes % Monocytes % Eosinophils % Basophils % Absolute Granulocytes Basophils # Sodium Cancelled Potassium Cancelled Chloride Cancelled Carbon Dioxide Cancelled Anion Gap Cancelled BUN Cancelled Creatinine Cancelled Estimated GFR Cancelled Glucose Cancelled POC Glucometer 189 H 193 H Lactic Acid Calcium Cancelled Magnesium Total Bilirubin Cancelled Direct Bilirubin Cancelled AST Cancelled ALT Cancelled Alkaline Phosphatase Cancelled Troponin I Serum Total Protein Cancelled Albumin Cancelled Amylase Lipase Urine Color Urine Appearance Urine pH Ur Specific [place] Urine Protein Urine Glucose (UA) Urine Ketones Urine Blood Urine Nitrite Urine Bilirubin Urine Urobilinogen Ur Leukocyte Esterase U Hyaline Cast (Auto) Urine Microscopic RBC Urine Microscopic WBC Ur Epithelial Cells Urine Bacteria Urine Culture Reflexed Urine Opiates Level Ur Methadone Urine Barbiturates Ur Phencyclidine (PCP) Urine Amphetamine U Benzodiazepine Level Urine Cocaine Urine Marijuana (THC) C. difficile Screen C.difficile 027-NAP1-B1 Influenza Type A Ag Influenza Type B Ag RSV (PCR) SARS-CoV-2 (PCR) 10/14/22 10/14/22 10/14/22 02:03 01:05 00:45 WBC RBC Hgb Hct MCV MCH MCHC RDW Plt Count MPV Gran % Immature Gran % (Auto) Nucleat RBC Rel Count Eos # (Auto) Immature Gran # (Auto) Absolute Lymphs (auto) Absolute Monos (auto) Absolute Nucleated RBC Lymphocytes % Monocytes % Eosinophils % Basophils % Absolute Granulocytes Basophils # Sodium 145 Potassium 4.3 Chloride 112 H Carbon Dioxide 15 L* Anion Gap 21.9 H BUN 30 H Creatinine 1.05 Estimated GFR > 60.0 Glucose 217 H POC Glucometer 176 H 196 H Lactic Acid Calcium 8.9 Magnesium 2.2 Total Bilirubin 0.60 Direct Bilirubin 0.1 AST 19 ALT 19 Alkaline Phosphatase 93 Troponin I 0.034 Serum Total Protein 7.2 Albumin 4.2 Amylase Lipase Urine Color Urine Appearance Urine pH Ur Specific [place] Urine Protein Urine Glucose (UA) Urine Ketones Urine Blood Urine Nitrite Urine Bilirubin Urine Urobilinogen Ur Leukocyte Esterase U Hyaline Cast (Auto) Urine Microscopic RBC Urine Microscopic WBC Ur Epithelial Cells Urine Bacteria Urine Culture Reflexed Urine Opiates Level Ur Methadone Urine Barbiturates Ur Phencyclidine (PCP) Urine Amphetamine U Benzodiazepine Level Urine Cocaine Urine Marijuana (THC) C. difficile Screen C.difficile 027-NAP1-B1 Influenza Type A Ag Influenza Type B Ag RSV (PCR) SARS-CoV-2 (PCR) 10/14/22 10/13/22 10/13/22 00:15 23:16 23:08 WBC RBC Hgb Hct MCV MCH MCHC RDW Plt Count MPV Gran % Immature Gran % (Auto) Nucleat RBC Rel Count Eos # (Auto) Immature Gran # (Auto) Absolute Lymphs (auto) Absolute Monos (auto) Absolute Nucleated RBC Lymphocytes % Monocytes % Eosinophils % Basophils % Absolute Granulocytes Basophils # Sodium Potassium Chloride Carbon Dioxide Anion Gap BUN Creatinine Estimated GFR Glucose POC Glucometer 206 H 281 H Lactic Acid 2.8 H Calcium Magnesium Total Bilirubin Direct Bilirubin AST ALT Alkaline Phosphatase Troponin I Serum Total Protein Albumin Amylase Lipase Urine Color Urine Appearance Urine pH Ur Specific [place] Urine Protein Urine Glucose (UA) Urine Ketones Urine Blood Urine Nitrite Urine Bilirubin Urine Urobilinogen Ur Leukocyte Esterase U Hyaline Cast (Auto) Urine Microscopic RBC Urine Microscopic WBC Ur Epithelial Cells Urine Bacteria Urine Culture Reflexed Urine Opiates Level Ur Methadone Urine Barbiturates Ur Phencyclidine (PCP) Urine Amphetamine U Benzodiazepine Level Urine Cocaine Urine Marijuana (THC) C. difficile Screen C.difficile 027-NAP1-B1 Influenza Type A Ag Influenza Type B Ag RSV (PCR) SARS-CoV-2 (PCR) 10/13/22 10/13/22 10/13/22 21:09 20:45 20:45 WBC RBC Hgb Hct MCV MCH MCHC RDW Plt Count MPV Gran % Immature Gran % (Auto) Nucleat RBC Rel Count Eos # (Auto) Immature Gran # (Auto) Absolute Lymphs (auto) Absolute Monos (auto) Absolute Nucleated RBC Lymphocytes % Monocytes % Eosinophils % Basophils % Absolute Granulocytes Basophils # Sodium Potassium Chloride Carbon Dioxide Anion Gap BUN Creatinine Estimated GFR Glucose POC Glucometer Lactic Acid 4.3 H Calcium Magnesium Total Bilirubin Direct Bilirubin AST ALT Alkaline Phosphatase Troponin I < 0.012 Serum Total Protein Albumin Amylase Lipase Urine Color Urine Appearance Urine pH Ur Specific [place] Urine Protein Urine Glucose (UA) Urine Ketones Urine Blood Urine Nitrite Urine Bilirubin Urine Urobilinogen Ur Leukocyte Esterase U Hyaline Cast (Auto) Urine Microscopic RBC Urine Microscopic WBC Ur Epithelial Cells Urine Bacteria Urine Culture Reflexed Urine Opiates Level Ur Methadone Urine Barbiturates Ur Phencyclidine (PCP) Urine Amphetamine U Benzodiazepine Level Urine Cocaine Urine Marijuana (THC) C. difficile Screen C.difficile 027-NAP1-B1 Influenza Type A Ag NEGATIVE Influenza Type B Ag NEGATIVE RSV (PCR) NEGATIVE SARS-CoV-2 (PCR) NEGATIVE 10/13/22 10/13/22 10/13/22 20:45 20:45 20:42 WBC 10.4 RBC 5.33 Hgb 16.1 Hct 49.4 MCV 92.7 MCH 30.2 MCHC 32.6 RDW 13.3 Plt Count 296 MPV 9.9 Gran % 88.1 H Immature Gran % (Auto) 0.5 H Nucleat RBC Rel Count 0.0 Eos # (Auto) 0.01 Immature Gran # (Auto) 0.05 H Absolute Lymphs (auto) 0.91 L Absolute Monos (auto) 0.24 Absolute Nucleated RBC 0.00 Lymphocytes % 8.8 L Monocytes % 2.3 Eosinophils % 0.1 Basophils % 0.2 Absolute Granulocytes 9.13 H Basophils # 0.02 Sodium 143 Potassium 4.6 Chloride 105 Carbon Dioxide 9 L* Anion Gap 34.1 H BUN 31 H Creatinine 1.24 Estimated GFR > 60.0 Glucose 414 H POC Glucometer Lactic Acid Calcium 9.8 Magnesium Total Bilirubin 0.90 Direct Bilirubin AST 21 ALT 24 Alkaline Phosphatase 136 H Troponin I Serum Total Protein 8.7 H Albumin 5.2 H Amylase 62 Lipase 20 L Urine Color Urine Appearance Urine pH Ur Specific [place] Urine Protein Urine Glucose (UA) Urine Ketones Urine Blood Urine Nitrite Urine Bilirubin Urine Urobilinogen Ur Leukocyte Esterase U Hyaline Cast (Auto) Urine Microscopic RBC Urine Microscopic WBC Ur Epithelial Cells Urine Bacteria Urine Culture Reflexed Urine Opiates Level NEGATIVE Ur Methadone NEGATIVE Urine Barbiturates NEGATIVE Ur Phencyclidine (PCP) NEGATIVE Urine Amphetamine NEGATIVE U Benzodiazepine Level NEGATIVE Urine Cocaine NEGATIVE Urine Marijuana (THC) NEGATIVE C. difficile Screen C.difficile 027-NAP1-B1 Influenza Type A Ag Influenza Type B Ag RSV (PCR) SARS-CoV-2 (PCR) 10/13/22 10/13/22 10/13/22 20:42 20:29 20:04 WBC RBC Hgb Hct MCV MCH MCHC RDW Plt Count MPV Gran % Immature Gran % (Auto) Nucleat RBC Rel Count Eos # (Auto) Immature Gran # (Auto) Absolute Lymphs (auto) Absolute Monos (auto) Absolute Nucleated RBC Lymphocytes % Monocytes % Eosinophils % Basophils % Absolute Granulocytes Basophils # Sodium Potassium Chloride Carbon Dioxide Anion Gap BUN Creatinine Estimated GFR Glucose POC Glucometer 303 H Lactic Acid Calcium Magnesium Total Bilirubin Direct Bilirubin AST ALT Alkaline Phosphatase Troponin I Serum Total Protein Albumin Amylase Lipase Urine Color Yellow Urine Appearance Clear Urine pH 5.0 Ur Specific [place] >=1.030 A Urine Protein 30 Urine Glucose (UA) >=1000 A Urine Ketones >=160 A Urine Blood Negative Urine Nitrite Negative Urine Bilirubin Negative Urine Urobilinogen 0.2 Ur Leukocyte Esterase Negative U Hyaline Cast (Auto) NONE SEEN Urine Microscopic RBC 0-2 Urine Microscopic WBC 0-2 Ur Epithelial Cells None Seen Urine Bacteria None Seen Urine Culture Reflexed NO Urine Opiates Level Ur Methadone Urine Barbiturates Ur Phencyclidine (PCP) Urine Amphetamine U Benzodiazepine Level Urine Cocaine Urine Marijuana (THC) C. difficile Screen NEGATIVE C.difficile 027-NAP1-B1 PRESUMPTIVE NEGATIVE Influenza Type A Ag Influenza Type B Ag RSV (PCR) SARS-CoV-2 (PCR) Orders (Last 24 hours) Category Date Time Status Up With Assistance ROUTINE Activity 10/13/22 23:27 Active Admit as Inpatient ROUTINE Care 10/13/22 23:27 Active Code Status Order ROUTINE Care 10/13/22 23:27 Active IV Insertion STAT Care 10/13/22 20:27 Completed IV Insertion-2nd Peripheral STAT Care 10/13/22 22:03 Completed Intake and Output Q12H Care 10/13/22 23:27 Completed POCT Glucose Check ACHS Care 10/13/22 23:27 Active POCT Glucose Check STAT Care 10/13/22 20:30 Completed Vital Signs Q4H Care 10/14/22 16:00 Active Weight,Daily 0600 Care 10/13/22 23:27 Active Consistent Carbohydrate Diet 2000 Calorie Diet 10/14/22 Breakfast Active ABDOMEN AND PELVIS W CONTRAST [CT] Stat Exams 10/13/22 20:28 Completed AMYLASE Stat Lab 10/13/22 20:45 Completed BMP/HFII Q4H Lab 10/14/22 05:05 Completed BMP/HFII Stat Lab 10/14/22 00:45 Completed BMP/HFII Stat Lab 10/14/22 09:17 Completed C.Difficile by PCR Stat Lab 10/13/22 20:29 Completed CBC AM.LAB Lab 10/15/22 04:00 Ordered CBC W DIFF Stat Lab 10/13/22 20:45 Completed CMP AM.LAB Lab 10/15/22 04:00 Ordered CMP Stat Lab 10/13/22 20:45 Completed COVID/FLU/RSV Panel Stat Lab 10/13/22 20:45 Completed LIPASE Stat Lab 10/13/22 20:45 Completed Lactic Acid Stat Lab 10/13/22 21:09 Completed Lactic Acid Stat Lab 10/13/22 23:16 Completed MAGNESIUM Stat Lab 10/14/22 00:45 Completed O&P+Crypto+Giardia [MR] Stat Lab 10/13/22 20:30 Received POCT GLUCOSE Stat Lab 10/13/22 20:04 Completed POCT GLUCOSE Stat Lab 10/13/22 23:08 Completed POCT GLUCOSE Stat Lab 10/14/22 00:15 Completed POCT GLUCOSE Stat Lab 10/14/22 01:05 Completed POCT GLUCOSE Stat Lab 10/14/22 02:03 Completed POCT GLUCOSE Stat Lab 10/14/22 02:59 Completed POCT GLUCOSE Stat Lab 10/14/22 04:10 Completed POCT GLUCOSE Stat Lab 10/14/22 05:14 Completed POCT GLUCOSE Stat Lab 10/14/22 06:03 Completed POCT GLUCOSE Stat Lab 10/14/22 06:58 Completed POCT GLUCOSE Stat Lab 10/14/22 07:58 Completed POCT GLUCOSE Stat Lab 10/14/22 11:18 Completed Stool Culture, Vibrio [MR] Routine Lab 10/13/22 20:30 Received Stool Culture, Yersinia [MR] Routine Lab 10/13/22 20:30 Received TROPONIN AM.LAB Lab 10/15/22 04:00 Ordered TROPONIN Q4H Lab 10/13/22 20:45 Completed TROPONIN Q4H Lab 10/14/22 00:45 Completed TROPONIN Q4H Lab 10/14/22 05:05 Completed TROPONIN Stat Lab 10/14/22 09:17 Completed UA W/RFX UR CULTURE Stat Lab 10/13/22 20:42 Completed Urine Triage Profile Stat Lab 10/13/22 20:42 Completed Acetaminophen 325 mg [Tylenol 325 mg] Med 10/14/22 00:34 Active 650 mg PO Q6H PRN PRN Albuterol 2.5 mg/3 ml Neb [Proventil 2.5 mg/3 ml Neb Med 10/14/22 08:29 Active ] 2.5 mg IH QID PRN PRN Albuterol Common Canister [Ventolin Common Canister* Med 10/14/22 08:29 Active ] 2 puff IH QIDPRN PRN Amlodipine Besylate 5 mg [Norvasc 5 mg] Med 10/14/22 10:00 Active 10 mg PO BID Benzonatate 100 mg [Tessalon Perles 100 MG] Med 10/14/22 08:32 Active 200 mg PO TIDPRN PRN D5w-0.45NACL W/ 20Meq KCl [D5W/0.45NS W/ 20mEq KCl 1000 Med 10/14/22 00:30 Discontinued ML] 1,000 ml IV 150 mls/hr D5w-0.45NACL W/ 20Meq KCl [D5W/0.45NS W/ 20mEq KCl 1000 Med 10/14/22 00:20 Discontinued ML] 1,000 ml IV UD Diphenoxylate HCl/Atropine [Lomotil] Med 10/14/22 08:29 Active 1 tablet PO QIDPRN PRN Empagliflozin [Jardiance] Med 10/14/22 10:00 Active 25 mg PO DAILY Ergocalciferol (Vitamin D2) [Vitamin D2] Med 10/16/22 10:00 Active 50,000 unit PO MoTh@1000 Gabapentin [Neurontin ] Med 10/14/22 10:00 Active 600 mg PO TID Hydromorphone 1 mg/1Ml Inj [Hydromorphone 1 mg/ml Med 10/13/22 20:44 Discontinued Injection] 1 mg .ROUTE .STK-MED ONE Hydromorphone 1 mg/1Ml Inj [Hydromorphone 1 mg/ml Med 10/13/22 23:27 Active Injection] 1 mg IV Q4H PRN PRN Hydromorphone 1 mg/1Ml Inj [Hydromorphone 1 mg/ml Med 10/13/22 20:27 Discontinued Injection] 1 mg IV STAT ONE Insulin Glargine [Lantus Insulin] Med 10/14/22 10:00 Active 20 unit SQ BID Insulin Lispro [Humalog] Med 10/14/22 06:08 Active See Dose Instructions SQ UD PRN Insulin Regular, Human [Humulin R] Med 10/13/22 21:58 Discontinued 10 unit IV STAT ONE Insulin Regular, Human [Humulin R] Med 10/13/22 22:16 Discontinued 110 unit .ROUTE .STK-MED ONE Metoclopramide HCl 10 mg/2 ml* [Reglan 10 MG/2 ML] Med 10/13/22 20:44 Discontinued 10 mg .ROUTE .STK-MED ONE Metoclopramide HCl 10 mg/2 ml* [Reglan 10 MG/2 ML] Med 10/13/22 20:27 Discontinued 10 mg IV STAT ONE Metoprolol Tartrate 25 mg [Lopressor 25MG Tab] Med 10/14/22 10:00 Active 25 mg PO BID NaCl 0.9% 1000 ml [Sodium Chloride 0.9% 1000 ML] 1,000 Med 10/13/22 20:49 Discontinued ml .ROUTE UD NaCl 0.9% 1000 ml [Sodium Chloride 0.9% 1000 ML] 1,000 Med 10/13/22 22:16 Discontinued ml .ROUTE UD NaCl 0.9% 1000 ml [Sodium Chloride 0.9% 1000 ML] 1,000 Med 10/13/22 23:30 Active ml IV 100 mls/hr NaCl 0.9% 1000 ml [Sodium Chloride 0.9% 1000 ML] 1,000 Med 10/13/22 20:48 Discontinued ml IV 999 mls/hr NaCl 0.9% 1000 ml [Sodium Chloride 0.9% 1000 ML] 1,000 Med 10/13/22 21:58 Discontinued ml IV 999 mls/hr NaCl 0.9% [Sodium Chloride 0.9%] 100 ml Med 10/13/22 21:58 Discontinued Insulin Regular, Human [Humulin R] 100 unit IV 0.1 unit/kg/hr NaCl 0.9% [Sodium Chloride 0.9%] 100 ml Med 10/13/22 22:16 Discontinued .ROUTE UD Ondansetron HCl 4 mg/2 ml [Zofran 4 MG/2 ML VIAL] Med 10/13/22 23:27 Active 4 mg IV Q6H PRN PRN PANTOPRAZOLE 40 mg Tablet [Protonix 40MG Tablet] Med 10/14/22 10:00 Active 40 mg PO BID Torsemide 20 mg [Demadex 20 mg] Med 10/14/22 10:00 Active 20 mg PO DAILY EKG ROUTINE RT 10/14/22 10:06 Completed Respiratory Therapy Assessment DAILY RT 10/14/22 09:25 Active Transfer Order Routine Transfer 10/14/22 Completed Patient Care Notes (Last 24 hours) 10/14/22 10:06 Nursing Note by Mini Caceres Dr called with critical troponin results. New order received. Initialized on 10/14/22 10:06 - END OF NOTE 10/14/22 06:06 Nursing Note by Jennifer Mims This nurse contacted Dr. Trevino and notified him of patient's most recent anion gap 12, CO2 20, blood glucose 155. Order received to discontinue insulin drip and start patient on moderate dose sliding scale and home lantus dose. Pt informed of new POC. Initialized on 10/14/22 06:06 - END OF NOTE Code(s): E11.10 - TYPE 2 DIABETES MELLITUS WITH KETOACIDOSIS WITHOUT COMA
[2022-10-15] MEDS: Sodium Chloride 0.9% 1000 ML 1,000 ML IV SCH (01:00)
[2022-10-15 05:28] LABS: Hematocrit 38.7 % (42-50); Hemoglobin 13.1 g/dL (12.5-18.0); Mean Cell Volume 90.8 fL (78-100); Mean Corpuscular Hemoglobin 30.8 pg (26-32); Mean Corpuscular Hgb Concent. 33.9 g/dL (32-36); Mean Platelet Volume 9.4 fL (7.5-11.0); Platelet Count 209 x10^3/uL (150-450); Red Blood Count 4.26 x10^6/uL (4.1-5.6); Red Cell Distribution Width 13.2 % (11.5-14.0); White Blood Count 7.2 x10^3/uL (4.0-10.5)
[2022-10-15 05:53] LABS: ALBUMIN 3.5 g/dL (3.5-5.0); ALKALINE PHOSPHATASE 79 U/L (38-126); ANION GAP 11.2 MEQ/L (5-15); BLOOD UREA NITROGEN 18 mg/dL (9-20); CHLORIDE 104 mmol/L (98-107); Calcium 8.2 mg/dL (8.4-10.2); Carbon Dioxide 25 mmol/L (22-30); Creatinine 1 0.97 mg/dL (0.66-1.25); EST GLOMERULAR FILTRATION RATE > 60.0 ML/MIN; Glucose 111 mg/dL (74-106); Potassium 3.1 mmol/L (3.5-5.1); SGOT/AST 28 U/L (17-59); SGPT/ALT 18 U/L (0-50); SODIUM 137 mmol/L (137-145); Total Protein 6.1 g/dL (6.3-8.2)
[2022-10-15 07:28] VITALS: BP 129/79; PULSE 58; O2SAT 93
[2022-10-15] MEDS: NORVASC 5 MG PO SCH (09:21)
[2022-10-15] MEDS: Lopressor 25MG Tab PO SCH (09:22)
[2022-10-15] MEDS: DEMADEX 20 MG PO SCH (09:22)
[2022-10-15] MEDS: Protonix 40MG Tablet PO SCH (09:22)
[2022-10-15] MEDS: NEURONTIN PO SCH (09:23)
[2022-10-15] MEDS: JARDIANCE PO SCH (09:24)
--- NOTE | 2022-10-15 13:12 | PCM.DS ---
Discharge Summary Date of Admission: 10/14/22 00:03 Admitting Physician: SHIELA LAW MD Primary Care Provider: HARRISON VENTURA Allergies Allergies lisinopril Allergy (Mild, Verified 10/14/22 00:33) Anaphylactic Reaction naproxen Adverse Reaction (Mild, Verified 10/14/22 00:33) Rash Hospital Summary - Hospital Course Hospital Course: Chief Complaint Diagnosis c/o severe vomiting for 1 day Allergies Allergy/AdvReac Type Severity Reaction Status Date / Time lisinopril Allergy Mild Anaphylactic Verified 10/14/22 00:33 Reaction naproxen AdvReac Mild Rash Verified 10/14/22 00:33 Vital Signs (Last 24 hours) Temp Pulse Resp BP Pulse Ox 10/15/22 07:27 97.5 F 58 L 16 129/79 93 L 10/15/22 04:00 97.7 F 61 16 118/68 97 10/14/22 23:31 98.0 F 63 17 129/73 97 10/14/22 20:00 97.8 F 64 18 113/71 97 10/14/22 19:05 61 18 94 L 10/14/22 16:00 98.2 F 62 19 126/75 95 Home Medications Medication Instructions Recorded Confirmed Last Taken Type Benzonatate 200 mg PO TIDPRN PRN 10/14/22 10/14/22 Unknown History Torsemide 20 mg [Demadex 20 20 mg PO DAILY 10/14/22 10/14/22 Unknown History mg] Current Medications Discontinued Medications Generic Name Dose Route Start Last Admin Trade Name Freq PRN Reason Stop Dose Admin Acetaminophen 650 mg 10/14/22 00:34 10/14/22 00:44 Acetaminophen 325 Mg Tablet PO 11/13/22 00:33 650 mg Q6H PRN PRN Administration PAIN AND/OR FEVER Albuterol Sulfate 2.5 mg 10/14/22 08:29 Albuterol Sulfate 2.5 Mg/3 Ml Neb 11/13/22 08:28 QID PRN PRN sob Albuterol Sulfate 2 puff 10/14/22 08:29 Albuterol Common Canister Inhaler 11/13/22 08:28 QIDPRN PRN sob Amlodipine Besylate 10 mg 10/14/22 10:00 10/15/22 09:21 Amlodipine Besylate 5 Mg Tablet PO 11/13/22 09:59 10 mg BID LEONIE Administration Benzonatate 200 mg 10/14/22 08:32 Benzonatate 100 Mg Capsule PO 11/13/22 08:31 TIDPRN PRN COUGH Diphenoxylate HCl/Atropine 1 tablet 10/14/22 08:29 10/14/22 09:26 Diphenoxylate Hcl/Atropine 1 Tablet PO 11/13/22 08:28 1 tablet QIDPRN PRN Administration DIARRHEA Empagliflozin 25 mg 10/14/22 10:00 10/15/22 09:24 Empagliflozin 10 Mg Tablet PO 11/13/22 09:59 25 mg DAILY LEONIE Administration Ergocalciferol 50,000 unit 10/16/22 10:00 Ergocalciferol (Vitamin D2) 50,000 Unit Capsule PO 11/15/22 09:59 MoTh@1000 LEONIE Gabapentin 600 mg 10/14/22 10:00 10/15/22 09:23 Gabapentin 300 Mg Capsule PO 11/13/22 09:59 600 mg TID LEONIE Administration Hydromorphone HCl 1 mg 10/13/22 20:27 10/13/22 20:48 Hydromorphone 1 Mg/1ml Inj 1 Mg/Ml Syringe IV 10/13/22 20:28 1 mg STAT ONE Administration Hydromorphone HCl Confirm 10/13/22 20:44 Hydromorphone 1 Mg/1ml Inj 1 Mg/Ml Syringe Administered 10/13/22 20:45 Dose 1 mg .ROUTE .STK-MED ONE Hydromorphone HCl 1 mg 10/13/22 23:27 Hydromorphone 1 Mg/1ml Inj 1 Mg/Ml Syringe IV 10/18/22 23:26 Q4H PRN PRN PAIN Sodium Chloride 1,000 mls @ 999 mls/hr 10/13/22 20:48 10/13/22 21:51 Sodium Chloride 0.9% 1000 Ml IV 10/13/22 21:48 Infused .Q1H1M STA Infusion Sodium Chloride Confirm 10/13/22 20:49 Sodium Chloride 0.9% 1000 Ml Administered 10/13/22 20:50 Dose 1,000 mls @ ud .ROUTE .STK-MED ONE Sodium Chloride 1,000 mls @ 999 mls/hr 10/13/22 21:58 10/13/22 22:22 Sodium Chloride 0.9% 1000 Ml IV 10/13/22 22:58 999 mls/hr .Q1H1M STA Administration Insulin Human Regular 100 unit 100 mls @ 7.76 mls/hr 10/13/22 21:58 10/14/22 06:00 / Sodium Chloride IV 11/12/22 21:57 0.04 unit/kg/hr .[id number] PRN 3 mls/hr DKA/HYPERGLYCEMIA Titration Protocol 0.1 UNIT/KG/HR Sodium Chloride Confirm 10/13/22 22:16 Sodium Chloride 0.9% Administered 10/13/22 22:17 Dose 100 mls @ ud .ROUTE .STK-MED ONE Sodium Chloride Confirm 10/13/22 22:16 Sodium Chloride 0.9% 1000 Ml Administered 10/13/22 22:17 Dose 1,000 mls @ ud .ROUTE .STK-MED ONE Sodium Chloride 1,000 mls @ 100 mls/hr 10/13/22 23:30 10/15/22 01:00 Sodium Chloride 0.9% 1000 Ml IV 11/12/22 23:29 150 mls/hr .Q10H LEONIE Administration Potassium Chloride/Dextrose/Sod Cl Confirm 10/14/22 00:20 D5w/0.45ns W/ 20meq Kcl 1000 Ml Administered 10/14/22 00:21 Dose 1,000 mls @ ud IV .STK-MED ONE Potassium Chloride/Dextrose/Sod Cl 1,000 mls @ 150 mls/hr 10/14/22 00:30 10/14/22 00:24 D5w/0.45ns W/ 20meq Kcl 1000 Ml IV 11/13/22 00:29 150 mls/hr .Q6H40M LEONIE Administration Insulin Glargine 20 unit 10/14/22 10:00 10/14/22 22:24 Insulin Glargine 1 Unit SQ 11/13/22 09:59 20 unit BID LEONIE Administration Insulin Human Lispro 0 unit 10/14/22 06:08 Insulin Lispro 1 Unit SQ 11/13/22 06:07 UD PRN HYPERGLYCEMIA Insulin Human Regular 10 unit 10/13/22 21:58 10/13/22 22:23 Insulin Regular, Human 1 Unit IV 10/13/22 21:59 10 unit STAT ONE Administration Insulin Human Regular Confirm 10/13/22 22:16 Insulin Regular, Human 1 Unit Administered 10/13/22 22:17 Dose 110 unit .ROUTE .STK-MED ONE Metoclopramide HCl 10 mg 10/13/22 20:27 10/13/22 20:48 Metoclopramide Hcl 10 Mg/2 Ml Vial IV 10/13/22 20:28 10 mg STAT ONE Administration Metoclopramide HCl Confirm 10/13/22 20:44 Metoclopramide Hcl 10 Mg/2 Ml Vial Administered 10/13/22 20:45 Dose 10 mg .ROUTE .STK-MED ONE Metoprolol Tartrate 25 mg 10/14/22 10:00 10/15/22 09:22 Metoprolol Tartrate 25 Mg Tab PO 11/13/22 09:59 25 mg BID LEONIE Administration Ondansetron HCl 4 mg 10/13/22 23:27 10/14/22 07:51 Ondansetron Hcl 4 Mg/2 Ml Vial IV 11/12/22 23:26 4 mg Q6H PRN PRN Administration NAUSEA/VOMITING Pantoprazole Sodium 40 mg 10/14/22 10:00 10/15/22 09:22 Protonix (Pantoprazole) 40 Mg Tablet PO 11/13/22 09:59 40 mg BID LEONIE Administration Torsemide 20 mg 10/14/22 10:00 10/15/22 09:22 Torsemide 20 Mg Tablet PO 11/13/22 09:59 20 mg DAILY LEONIE Administration Intake & Output (Last 24 hours) 10/13/22 10/14/22 10/15/22 10/16/22 11:59 11:59 11:59 11:59 Intake Total 2339 3246 Output Total 360 3000 Balance 1978 246 Weight 78 kg 80.7 kg Microbiology Results (Last 24 hours) 10/13/22 20:30 Stool Vibrio Culture - Pending 10/13/22 20:30 Stool - Pending 10/13/22 20:30 Stool - Pending 10/13/22 20:30 Stool - Pending 10/13/22 20:30 Stool - Pending 10/13/22 20:30 Stool Stool Culture Organism Suscept - Pending 10/13/22 20:30 Stool [place] Culture - Pending 10/13/22 20:30 Stool - Pending 10/13/22 20:30 Stool - Pending 10/13/22 20:30 Stool - Pending 10/13/22 20:30 Stool - Final Not Reportable 10/13/22 20:30 Stool Stool Culture Organism Suscept - Final Not Reportable 10/13/22 20:30 Stool Ova and Parasite Concentrate Exam - Pending 10/13/22 20:30 Stool Ova and Parasite Result 1 - Final Not Reportable 10/13/22 20:30 Stool Ova and Parasite Result 2 - Final Not Reportable 10/13/22 20:30 Stool Ova and Parasite Result 3 - Final Not Reportable 10/13/22 20:30 Stool Ova and Parasite Result 4 - Final Not Reportable 10/13/22 20:30 Stool Antimicrobic Susceptibility - Final Not Reportable 10/13/22 20:30 Stool Giardia lamblia (PCR) - Pending 10/13/22 20:30 Stool Cryptosporidium Antigen - Pending Laboratory Results (Last 24 hours) 10/15/22 10/15/22 10/15/22 07:10 05:20 05:20 WBC RBC Hgb Hct MCV MCH MCHC RDW Plt Count MPV Sodium 137 Potassium 3.1 L Chloride 104 Carbon Dioxide 25 Anion Gap 11.2 BUN 18 Creatinine 0.97 Estimated GFR > 60.0 Glucose 111 H POC Glucometer 97 Calcium 8.2 L Total Bilirubin 0.60 AST 28 ALT 18 Alkaline Phosphatase 79 Troponin I 0.800 H* Serum Total Protein 6.1 L Albumin 3.5 10/15/22 10/14/22 10/14/22 05:20 21:02 16:10 WBC 7.2 RBC 4.26 Hgb 13.1 Hct 38.7 L MCV 90.8 MCH 30.8 MCHC 33.9 RDW 13.2 Plt Count 209 MPV 9.4 Sodium Potassium Chloride Carbon Dioxide Anion Gap BUN Creatinine Estimated GFR Glucose POC Glucometer 129 H 142 H Calcium Total Bilirubin AST ALT Alkaline Phosphatase Troponin I Serum Total Protein Albumin Orders (Last 24 hours) Category Date Time Status Vital Signs Q4H Care 10/14/22 16:00 Completed Discharge Routine Discharge 10/15/22 Ordered CBC AM.LAB Lab 10/15/22 05:20 Completed CMP AM.LAB Lab 10/15/22 05:20 Completed POCT GLUCOSE Stat Lab 10/14/22 16:10 Completed POCT GLUCOSE Stat Lab 10/14/22 21:02 Completed POCT GLUCOSE Stat Lab 10/15/22 07:10 Completed TROPONIN AM.LAB Lab 10/15/22 05:20 Completed Ergocalciferol (Vitamin D2) [Vitamin D2] Med 10/16/22 10:00 Discontinued 50,000 unit PO MoTh@1000 Patient Care Notes (Last 24 hours) 10/15/22 09:47 Case Management Note by Vita Swartz S/W PATIENT ABOUT PLANS AT ME. HE CONTINUES TO DENY ANY NEW NEEDS. HE PLANS TO RETURN HOME TO HIS [facility]. HE REPORTS HE HAS ALL OF HIS DIABETIC SUPPLIES AT HOME. Initialized on 10/15/22 09:47 - END OF NOTE - Vitals & Intake/Output Vital Signs: Vital Signs Temperature 97.5 F 10/15/22 07:27 Pulse Rate 58 L 10/15/22 07:27 Respiratory Rate 16 10/15/22 07:27 Blood Pressure 129/79 10/15/22 07:27 O2 Sat by Pulse Oximetry 93 L 10/15/22 07:27 Intake & Output: Intake & Output 10/13/22 10/14/22 10/15/22 10/16/22 11:59 11:59 11:59 11:59 Intake Total 2339 3246 Output Total 360 3000 Balance 1979 246 Weight 78 kg 80.7 kg - Lab Result Diagrams: 10/15/22 05:20 10/15/22 05:20 Lab Results-Last 24 Hrs: Lab Results-Last 24 Hours 10/14/22 10/14/22 10/15/22 Range/Units 16:10 21:02 05:20 WBC 7.2 (4.0-10.5) x10^3/uL RBC 4.26 (4.1-5.6) x10^6/uL Hgb 13.1 (12.5-18.0) g/dL Hct 38.7 L (42-50) % MCV 90.8 (78-100) fL MCH 30.8 (26-32) pg MCHC 33.9 (32-36) g/dL RDW 13.2 (11.5-14.0) % Plt Count 209 (150-450) x10^3/uL MPV 9.4 (7.5-11.0) fL Sodium (137-145) mmol/L Potassium (3.5-5.1) mmol/L Chloride (98-107) mmol/L Carbon Dioxide (22-30) mmol/L Anion Gap (5-15) MEQ/L BUN (9-20) mg/dL Creatinine (0.66-1.25) mg/dL Estimated GFR ML/MIN Glucose (74-106) mg/dL POC Glucometer 142 H 129 H (74 to 106) mg/dL Calcium (8.4-10.2) mg/dL Total Bilirubin (0.2-1.3) mg/dL AST (17-59) U/L ALT (0-50) U/L Alkaline Phosphatase (38-126) U/L Troponin I (0.000-0.034) ng/mL Serum Total Protein (6.3-8.2) g/dL Albumin (3.5-5.0) g/dL 10/15/22 10/15/22 10/15/22 Range/Units 05:20 05:20 07:10 WBC (4.0-10.5) x10^3/uL RBC (4.1-5.6) x10^6/uL Hgb (12.5-18.0) g/dL Hct (42-50) % MCV (78-100) fL MCH (26-32) pg MCHC (32-36) g/dL RDW (11.5-14.0) % Plt Count (150-450) x10^3/uL MPV (7.5-11.0) fL Sodium 137 (137-145) mmol/L Potassium 3.1 L (3.5-5.1) mmol/L Chloride 104 (98-107) mmol/L Carbon Dioxide 25 (22-30) mmol/L Anion Gap 11.2 (5-15) MEQ/L BUN 18 (9-20) mg/dL Creatinine 0.97 (0.66-1.25) mg/dL Estimated GFR > 60.0 ML/MIN Glucose 111 H (74-106) mg/dL POC Glucometer 97 (74 to 106) mg/dL Calcium 8.2 L (8.4-10.2) mg/dL Total Bilirubin 0.60 (0.2-1.3) mg/dL AST 28 (17-59) U/L ALT 18 (0-50) U/L Alkaline Phosphatase 79 (38-126) U/L Troponin I 0.800 H* (0.000-0.034) ng/mL Serum Total Protein 6.1 L (6.3-8.2) g/dL Albumin 3.5 (3.5-5.0) g/dL Micro Results-Entire Visit: Microbiology 10/13/22 20:30 - Final Stool Not Reportable Stool Culture Organism Suscept - Final Not Reportable 10/13/22 20:30 Ova and Parasite Result 1 - Final Stool Not Reportable Ova and Parasite Result 2 - Final Not Reportable Ova and Parasite Result 3 - Final Not Reportable Ova and Parasite Result 4 - Final Not Reportable Antimicrobic Susceptibility - Final Not Reportable Accuchecks Date 10/15/22 Date 10/14/22 Time 16:26 - Radiology Exams Ordered Rad Exams-Entire Visit: Radiology Procedures Category Date Time Status ABDOMEN AND PELVIS W CONTRAST [CT] Stat Exams 10/13/22 20:28 Completed - Procedures and Test Procedures and Tests throughout Hospitalization: Therapy Orders & Screens 10/14/22 09:25 Respiratory Therapy Assessment DAILY Comment: Diagnosis: DKA 10/14/22 10:06 EKG ROUTINE Comment: Diagnosis: DKA Discharge Exam General Appearance: no apparent distress, alert Neurologic Exam: alert, oriented x 3, cooperative, normal mood/affect, nml cerebellar function, sensation nml, No motor deficits Eye Exam: PERRL, EOMI, eyes nml inspection Ears, Nose, Throat Exam: normal ENT inspection, pharynx normal, moist mucous membranes Neck Exam: normal inspection, non-tender, supple, full range of motion Respiratory Exam: normal breath sounds, lungs clear, No respiratory distress Cardiovascular Exam: regular rate/rhythm, normal heart sounds Gastrointestinal/Abdomen Exam: soft, No tenderness, No mass Male Genitalia Exam: deferred Rectal Exam: deferred Back Exam: normal inspection, normal range of motion, No CVA tenderness, No vertebral tenderness Extremity Exam: normal inspection, normal range of motion Skin Exam: normal color, warm, dry Final Diagnosis/Problem List - Final Discharge Diagnosis/Problem (1) Diabetic ketoacidosis Status: Resolved Code(s): E11.10 - TYPE 2 DIABETES MELLITUS WITH KETOACIDOSIS WITHOUT COMA - Discharge Discharge Date: 10/15/22 Disposition: Home, Self-Care Condition: Stable Prescriptions: Continue Albuterol Sulfate [Proair Hfa] 2 puffs IH QIDPRN PRN PRN Reason: sob Albuterol 2.5 mg/3 ml Neb [Proventil 2.5 mg/3 ml Neb] 1 neb IH QID PRN PRN PRN Reason: sob Amlodipine Besylate 5 mg [Norvasc 5 mg] 10 mg PO BID Insulin Glargine,Hum.rec.anlog [Basaglar Kwikpen U-100] 20 unit SQ BID Gabapentin [Neurontin ] 600 mg PO TID Sildenafil Citrate [Viagra] 100 mg PO DAILY PRN PRN PRN Reason: erectile dysfuction Esomeprazole Magnesium [Nexium] 40 mg PO BID Metoprolol Tartrate 25 mg [Lopressor 25MG Tab] 25 mg PO BID Ergocalciferol (Vitamin D2) [Vitamin D2] 50,000 unit PO UD Testosterone 1 pump TOP DAILY Empagliflozin [Jardiance] 25 mg PO DAILY Diphenoxylate HCl/Atropine [Lomotil] 1 tab PO QIDPRN PRN PRN Reason: Diarrhea Torsemide 20 mg [Demadex 20 mg] 20 mg PO DAILY Benzonatate 200 mg PO TIDPRN PRN PRN Reason: Cough Instructions: Diabetic Ketoacidosis (DC) Additional Instructions: POTASSIUM CHLORIDE 10 MEQ PO BID CALLED INTO [facility] AFTER PT LEFT PER DR. VENTURA. PT CALLED AND MADE AWARE OF NEW SCRIPT. Follow up with: ALICE STONE [NON-STAFF PHY W/O PRIVILEGES] - Call for Appointment HARRISON VENTURA MD [Primary Care Provider] - 10/23/22 3:00 pm ([facility]) Forms: Discharge Instructions
[2022-10-16] MEDS ORDERED: VITAMIN D2 PO SCH (10:00)
== END 2022-10-15 10:05 | disposition home or self-care (01) ==
LOC: ED 19:41 → INTOOBSV 10-14 00:03 → ICU 10-14 00:03
PROVIDERS: ADMIT Internal Medicine; ATTEND General Practice
DX: E11.10 Type 2 diabetes mellitus with ketoacidosis without coma (principal); J44.9 Chronic obstructive pulmonary disease, unspecified; I10 Essential (primary) hypertension; Z85.118 Personal history of other malignant neoplasm of bronchus and lung; Z79.899 Other long term (current) drug therapy; Z20.828 Contact with and (suspected) exposure to other viral communicable diseases
CPT/HCPCS: 0241U; 36000; 36415; 74177; 80048; 80053; 80076; 80307; 81001; 82150; 82947; 83605; 83690; 83735; 84484; 85025; 85027; 87046; 87328; 87329; 87493; 93005; 96360; 96361; 96365; 96366; 96374; 96375; 99285; 99291; 93268; J1170; J1815; J2405; A9270-GY; G0378

== ENCOUNTER 2023-01-01 21:01 | Emergency (ER) | payer BC ==
[2023-01-01 21:08] VITALS: O2SAT 96
[2023-01-01] MEDS ORDERED: MORPHINE SULFATE 4 MG INJ IM ONE (21:37)
[2023-01-01] MEDS ORDERED: MORPHINE SULFATE 4 MG INJ ONE (21:40)
--- NOTE | 2023-01-01 21:56 | ERPHSYRPT ---
- History of Present Illness Source: patient Exam Limitations: no limitations Patient Subjective Stated Complaint: R ankle/foot pain Triage Nursing Assessment: pt ambulatory to bed by self, pt alert and oriented x3, pt c/o r ankle/foot pain after twisting ankle getting out of car, R ankle swollen, cap refill less than 2 secs, +2 pedal pulses Physician History: Is a 57-year-old male presents to the ER concerns of rolling his right ankle. Reports earlier today he was getting out of his vehicle and stepped out ended up rolling his ankle medially. Reports having pain 8 out of 10 without any radiation located on the lateral aspect of his distal fibula. Patient reports he is a able to have full range of motion with pain of his ankle, is able to move all his toes and reports sensations are intact. Patient denies having any other concerns. Timing/Duration: today Severity: moderate Allergies/Adverse Reactions: lisinopril Allergy (Mild, Verified 01/01/23 21:05) Anaphylactic Reaction naproxen Adverse Reaction (Mild, Verified 01/01/23 21:05) Rash Home Medications: Albuterol 2.5 mg/3 ml Neb [Proventil 2.5 mg/3 ml Neb] 1 neb IH QID PRN PRN 10/15/16 [History] Albuterol Sulfate [Proair Hfa] 2 puffs IH QIDPRN PRN 10/15/16 [History] Amlodipine Besylate 5 mg [Norvasc 5 mg] 10 mg PO BID 11/12/20 [History] Insulin Glargine,Hum.rec.anlog [Basaglar Kwikpen U-100] 20 unit SQ BID 11/13/20 [History] Gabapentin [Neurontin ] 600 mg PO TID 02/17/21 [History] Esomeprazole Magnesium [Nexium] 40 mg PO BID 12/26/21 [History] Sildenafil Citrate [Viagra] 100 mg PO DAILY PRN PRN 12/26/21 [History] Empagliflozin [Jardiance] 25 mg PO DAILY 03/30/22 [History] Ergocalciferol (Vitamin D2) [Vitamin D2] 50,000 unit PO UD 03/30/22 [History] Metoprolol Tartrate 25 mg [Lopressor 25MG Tab] 1.5 tab PO BID 03/30/22 [History] Diphenoxylate HCl/Atropine [Lomotil] 1 tab PO QIDPRN PRN 07/28/22 [History] Torsemide 20 mg [Demadex 20 mg] 20 mg PO DAILY 10/14/22 [History] Doxycycline Hyclate 100 mg [Vibramycin 100 MG] 100 mg PO BID 01/01/23 [History] Hx Tetanus, Diphtheria Vaccination/Date Given: Yes Hx Influenza Vaccination/Date Given: Yes Hx Pneumococcal Vaccination/Date Given: Yes Immunizations Up to Date: Yes Travel Risk - International Travel Have you traveled outside of the country in past 3 weeks: No - Coronavirus Screening Are you exhibiting any of the following symptoms?: No Close contact with a COVID-19 positive Pt in past 14-21 Days: No - Vaccine Status Have you recieved a Covid-19 vaccination: Yes 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: [email or web address] - Vaccination Dates Date of 2cond Vaccination (if applicable): 2020 - Review of Systems Constitutional: No Fever, No Chills Eyes: No Symptoms Ears, Nose, & Throat: No Symptoms Respiratory: No Cough, No Dyspnea Cardiac: No Chest Pain, No Edema, No Syncope Abdominal/Gastrointestinal: No Abdominal Pain, No Nausea, No Vomiting, No Diarrhea Genitourinary Symptoms: No Dysuria Musculoskeletal: Injury (Rolling of right ankle), No Back Pain, No Neck Pain Skin: No Rash Neurological: No Dizziness, No Focal Weakness, No Sensory Changes Psychological: No Symptoms Endocrine: No Symptoms All Other Systems: Reviewed and Negative - Past Medical History Pertinent Past Medical History: Yes Neurological History: Peripheral Neuropathy ENT History: Cataracts Cardiac History: Hypertension Respiratory History: Asthma, COPD, Lung Cancer, Pneumonia, Other Endocrine Medical History: Diabetes Type II Musculoskeletal History: Fractures GI Medical History: GERD, Gallbladder Disease, Irritable Bowel, Other History: No Pertinent History Psycho-Social History: No Pertinent History Male Reproductive Disorders: No Pertinent History Other Medical History: HAS BEEN IN REMISSION FOR LUNG CANCER X 10 YEARS. HX FRACTURE RIBS AND T6, T7 6 YEARS AGO AFTER FALL FROM LADDER. 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 both cataracts removed- suboptical implant in;. rt middle lobe lung remove - Social History Smoking Status: Never smoker Exposure to second hand smoke: No Drug Use: none Patient Lives Alone: No Significant Family History: no pertinent family hx - Nursing Vital Signs Nursing Vital Signs: Initial Vital Signs Temperature 98.4 F 01/01/23 21:06 Pulse Rate 68 01/01/23 21:06 Respiratory Rate 18 01/01/23 21:06 Blood Pressure 176/91 01/01/23 21:06 O2 Sat by Pulse Oximetry 96 01/01/23 21:06 Pain Scale Pain Intensity 6 - Physical Exam General Appearance: no apparent distress, alert Eye Exam: PERRL/EOMI, eyes nml inspection Ears, Nose, Throat Exam: normal ENT inspection, TMs normal, moist mucous membranes Neck Exam: normal inspection, non-tender, supple, full range of motion Respiratory Exam: normal breath sounds, lungs clear, No respiratory distress Cardiovascular Exam: regular rate/rhythm, normal heart sounds, normal peripheral pulses Gastrointestinal/Abdomen Exam: soft, normal bowel sounds, No tenderness, No mass Back Exam: normal inspection, No CVA tenderness, No vertebral tenderness Extremity Exam: normal inspection, joint swelling (Right ankle), limited range of motion (Right ankle), tenderness (Over lateral aspect of the distal fibula) Neurologic Exam: alert, oriented x 3, cooperative, normal mood/affect, nml cerebellar function, nml station & gait, sensation nml, No motor deficits Skin Exam: normal color, warm, dry, No rash Lymphatic Exam: No adenopathy SpO2: 96 Ordered Tests: Active Orders 24 hr Category Date Time Status ANKLE (3 VIEWS) Stat Exams 01/01/23 21:22 Taken FOOT (MINIMUM 3 VIEWS) Stat Exams 01/01/23 21:22 Taken Medication Summary Discontinued Medications Generic Name Dose Route Start Last Admin Trade Name Freq PRN Reason Stop Dose Admin Morphine Sulfate 4 mg 01/01/23 21:37 01/01/23 21:42 Morphine Sulfate 4 Mg/Ml Injection IM 01/01/23 21:38 4 mg STAT ONE Administration Morphine Sulfate Confirm 01/01/23 21:40 Morphine Sulfate 4 Mg/Ml Injection Administered 01/01/23 21:41 Dose 4 mg .ROUTE .STK-MED ONE - Progress Progress: improved Progress Note: 01/01/23 21:56 Right ankle and foot x-rays reveal no acute fractures. Possibly has ankle sprain and was given morphine for pain. With full range of motion and no significant loss of strength or sensation I feel it would be appropriate for patient to put on his regular shoes and bear weight on extremity. Patient to follow-up with his PCP. Advised patient to do RICE therapy and use ibuprofen to decrease inflammation and manage pain. Will see patient in: office Counseled pt/family regarding: diagnosis, need for follow-up, rad results - Departure Departure Disposition: Home Clinical Impression: Sprain of right ankle Condition: Stable Critical Care Time: No Referrals: HARRISON VENTURA MD [Primary Care Provider] - Follow up/PCP as directed
[2023-01-01 22:02] VITALS: BP 156/79; PULSE 60
--- NOTE | 2023-01-02 08:51 | XRAY ---
Indication: Pain and swelling following twisting injury. Comparison: None 3 view right ankle demonstrates osteopenia, 2 mm round ossification in plantar soft tissues adjacent to shaft 2nd metatarsal, mild tarsometatarsal degenerative changes, tiny heel spurs, and mild soft tissue swelling. No other bony, articular, or soft tissue abnormalities.
--- NOTE | 2023-01-02 08:53 | XRAY ---
Indication: Pain and swelling following twisting injury. Comparison: None 3 nonweightbearing views right foot demonstrates healing fracture head 5th proximal phalanx with soft tissue swelling, osteopenia, 2 mm round calcification in plantar soft tissues adjacent to shaft 2nd metatarsal, mild tarsometatarsal degenerative changes, and tiny heel spurs. No other bony, articular, or soft tissue abnormalities.
== END 2023-01-01 22:05 | disposition home or self-care (01) ==
LOC: ED 21:01
DX: S93.401A Sprain of unspecified ligament of right ankle, initial encounter (principal); X50.0XXA Overexertion from strenuous movement or load, initial encounter; I10 Essential (primary) hypertension; E11.42 Type 2 diabetes mellitus with diabetic polyneuropathy; Z79.4 Long term (current) use of insulin; Z79.84 Long term (current) use of oral hypoglycemic drugs; Z79.899 Other long term (current) drug therapy; Z86.16 Personal history of COVID-19
CPT/HCPCS: 73610; 73630; 96372; 99283; J2270

== ENCOUNTER 2023-02-26 15:54 | Emergency (ER) | payer BC ==
[2023-02-26] MEDS ORDERED: DUONEB 0.5-3 MG/3 ml Neb IH ONE ×2 (16:26→16:32)
[2023-02-26 16:28] VITALS: TEMP 99.3
[2023-02-26] MEDS ORDERED: HYDROCODONE-ACETAMIN 2.5-108/5 ML SOLUTION PO STA (16:28)
[2023-02-26] MEDS ORDERED: HYDROCODONE-ACETAMIN 2.5-108/5 ML SOLUTION ONE (16:30)
--- NOTE | 2023-02-26 16:55 | XRAY ---
Indication: Cough. Comparison: July 28, 2022 Portable chest again demonstrates right perihilar postsurgical changes and tiny right midlung calcified granuloma. Remaining heart and lungs unremarkable. Bony thorax intact again with osteopenia, degenerative changes, and mild dextroscoliosis. No new/acute findings.
[2023-02-26 16:57] LABS: Absolute Neutrophil Ct (ANC) 6.97 x10^3/uL (1.4-6.9); BASOPHIL % 0.5 % (0.0-0.4); Basophil (Absolute #) 0.05 x10^3/uL (0-0.4); Eosinophil % 1.7 % (0.00-5.0); Eosinophil (Absolute #) 0.17 x10^3/uL (0-0.5); Hematocrit 41.6 % (42-50); Hemoglobin 13.9 g/dL (12.5-18.0); IMMATURE GRAN # 0.03 x10^3u/L (0.00-0.03); IMMATURE GRAN % 0.3 % (0.00-0.4); Lymphocyte (Absolute #) 1.61 x10^3/uL (1.0-4.6); Lymphocytes % 16.3 % (24.0-44.0); Mean Cell Volume 89.8 fL (78-100); Mean Corpuscular Hgb Concent. 33.4 g/dL (32-36); Mean Platelet Volume 9.5 fL (7.5-11.0); Monocyte (Absolute #) 1.07 x10^3/uL (0.0-1.3); Monocytes % 10.8 % (0.0-12.0); Neutrophil % 70.4 % (36.0-66.0); Platelet Count 239 x10^3/uL (150-450); Red Blood Count 4.63 x10^6/uL (4.1-5.6); Red Cell Distribution Width 13.3 % (11.5-14.0); White Blood Count 9.9 x10^3/uL (4.0-10.5)
[2023-02-26 17:11] LABS: ALBUMIN 4.5 g/dL (3.5-5.0); ALKALINE PHOSPHATASE 82 U/L (38-126); ANION GAP 15.9 MEQ/L (5-15); BLOOD UREA NITROGEN 28 mg/dL (9-20); CHLORIDE 104 mmol/L (98-107); Calcium 9.1 mg/dL (8.4-10.2); Carbon Dioxide 23 mmol/L (22-30); Creatinine 1 1.19 mg/dL (0.66-1.25); EST GLOMERULAR FILTRATION RATE > 60.0 ML/MIN; Glucose 101 mg/dL (74-106); MAGNESIUM 2.2 mg/dL (1.6-2.3); Potassium 3.4 mmol/L (3.5-5.1); SGOT/AST 32 U/L (17-59); SGPT/ALT 21 U/L (0-50); SODIUM 139 mmol/L (137-145)
[2023-02-26 17:27] LABS: PROCALCITONIN 0.223 ng/mL (0.030-0.080)
[2023-02-26] MEDS ORDERED: Zofran 4 MG/2 ML VIAL ONE (18:27)
[2023-02-26] MEDS ORDERED: Zofran 4 MG/2 ML VIAL IV ONE (18:27)
[2023-02-26] MEDS ORDERED: VIBRAMYCIN 100 MG IV ONE (18:41)
[2023-02-26] MEDS ORDERED: D5w 100ML Mini Bag 100 ML 100 ML IV ONE (18:42)
[2023-02-26 19:26] VITALS: O2SAT 96
--- NOTE | 2023-02-26 19:26 | ERPHSYRPT ---
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 Patient reports dry hacking cough. During the interview patient was constantly coughing. Denies fever or chills. Does have history of COPD asthma as well. Patient denies any chest pain or palpitations. Patient also having right foot swelling for the last 3 to 4 days with progressive worsening. Does have neuropathy and does not feel much pain. Denies any fall or trauma. Patient reported initially it started in the distal foot and now involve the whole foot and approaching towards the ankle. Timing/Duration: today, sudden, improved Activities at Onset: rest Severity of Dyspnea-Max: moderate Severity of Dyspnea-Current: moderate Modifying Factors: Worsens With: coughing Associated Symptoms: cough, No productive cough Allergies/Adverse Reactions: lisinopril Allergy (Mild, Verified 02/26/23 16:10) Anaphylactic Reaction naproxen Adverse Reaction (Mild, Verified 02/26/23 16:10) Rash Home Medications: Albuterol 2.5 mg/3 ml Neb [Proventil 2.5 mg/3 ml Neb] 1 neb IH QID PRN PRN 10/15/16 [History] Albuterol Sulfate [Proair Hfa] 2 puffs IH QIDPRN PRN 10/15/16 [History] Amlodipine Besylate 5 mg [Norvasc 5 mg] 10 mg PO BID 11/12/20 [History] Insulin Glargine,Hum.rec.anlog [Basaglar Kwikpen U-100] 20 unit SQ BID 11/13/20 [History] Gabapentin [Neurontin ] 600 mg PO TID 02/17/21 [History] Esomeprazole Magnesium [Nexium] 40 mg PO BID 12/26/21 [History] Sildenafil Citrate [Viagra] 100 mg PO DAILY PRN PRN 12/26/21 [History] Empagliflozin [Jardiance] 25 mg PO DAILY 03/30/22 [History] Ergocalciferol (Vitamin D2) [Vitamin D2] 50,000 unit PO UD 03/30/22 [History] Metoprolol Tartrate 25 mg [Lopressor 25MG Tab] 1.5 tab PO BID 03/30/22 [History] Diphenoxylate HCl/Atropine [Lomotil] 1 tab PO QIDPRN PRN 07/28/22 [History] Torsemide 20 mg [Demadex 20 mg] 20 mg PO DAILY 10/14/22 [History] Hx Tetanus, Diphtheria Vaccination/Date Given: Yes Hx Influenza Vaccination/Date Given: Yes Hx Pneumococcal Vaccination/Date Given: Yes Travel Risk - International Travel Have you traveled outside of the country in past 3 weeks: No - Coronavirus Screening Are you exhibiting any of the following symptoms?: Yes Symptoms: Cough: New Onset, Shortness of Breath Close contact with a COVID-19 positive Pt in past 14-21 Days: No - Vaccine Status Have you recieved a Covid-19 vaccination: Yes 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[employer] - Vaccination Dates Date of 2cond Vaccination (if applicable): 2020 - Review of Systems Constitutional: No Symptoms Eyes: No Symptoms Ears, Nose, & Throat: No Symptoms Respiratory: Cough, Dyspnea Cardiac: No Symptoms Abdominal/Gastrointestinal: No Symptoms Genitourinary Symptoms: No Symptoms Musculoskeletal: Joint Redness, Joint Pain, Joint Swelling Skin: Induration Neurological: No Symptoms Psychological: No Symptoms Endocrine: No Symptoms Hematologic/Lymphatic: No Symptoms - Past Medical History Pertinent Past Medical History: Yes Neurological History: Peripheral Neuropathy ENT History: Cataracts Cardiac History: Hypertension Respiratory History: Asthma, COPD, Lung Cancer, Pneumonia, Other Endocrine Medical History: Diabetes Type II Musculoskeletal History: Fractures GI Medical History: GERD, Gallbladder Disease, Irritable Bowel, Other History: No Pertinent History Psycho-Social History: No Pertinent History Male Reproductive Disorders: No Pertinent History Other Medical History: HAS BEEN IN REMISSION FOR LUNG CANCER X 10 YEARS. HX FRACTURE RIBS AND T6, T7 6 YEARS AGO AFTER FALL FROM LADDER. 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 both cataracts removed- suboptical implant in;. rt middle lobe lung remove - Social History Smoking Status: Never smoker Exposure to second hand smoke: No Drug Use: none Patient Lives Alone: No Significant Family History: no pertinent family hx - Nursing Vital Signs Nursing Vital Signs: Initial Vital Signs Temperature 99.3 F 02/26/23 15:54 Pulse Rate 75 02/26/23 15:54 Respiratory Rate 22 02/26/23 15:54 Blood Pressure 165/108 02/26/23 15:54 O2 Sat by Pulse Oximetry 97 02/26/23 15:54 Pain Scale Pain Intensity 7 - Physical Exam General Appearance: no apparent distress, alert Eye Exam: PERRL/EOMI, eyes nml inspection Ears, Nose, Throat Exam: hearing grossly normal, pharyngeal erythema Neck Exam: normal inspection, non-tender, supple, full range of motion Respiratory Exam: diminished breath sounds, wheezing Cardiovascular/Chest Exam: normal heart sounds, regular rate/rhythm Abdominal/Gastrointestinal Exam: soft, normal bowel sounds, No tenderness Extremity Exam: normal range of motion, swelling (Swelling right foot with bruising. Mild increased temperature, tender. Painful movements at the toes. Distal neurovascular intact.), joint swelling Neurologic Exam: alert, oriented x 3, cooperative Skin Exam: normal color SpO2 Interpretation: normal SpO2: 96 O2 Delivery: Room Air - Course EKG Interpreted by Me: RATE (75), Right Bundle Branch Block, Q-wave, Non- specific ST Changes Ordered Tests: Active Orders 24 hr Category Date Time Status Instrumentation And Controls Designer STAT Care 02/26/23 16:27 Active EKG-ER Only STAT Care 02/26/23 16:26 Active IV Insertion STAT Care 02/26/23 16:26 Active CHEST 1 VIEW (PORTABLE) Stat Exams 02/26/23 16:27 Completed CHEST WITH CONTRAST [CT] Stat Exams 02/26/23 19:09 Taken FOOT (MINIMUM 3 VIEWS) Stat Exams 02/26/23 17:40 Taken BLOOD CULTURE Stat Lab 02/26/23 16:54 Received CBC W DIFF Stat Lab 02/26/23 16:54 Completed CMP Stat Lab 02/26/23 16:54 Completed D-DIMER QUANTITATIVE Stat Lab 02/26/23 16:55 Completed Lactic Acid Stat Lab 02/26/23 16:26 Completed MAGNESIUM Stat Lab 02/26/23 16:54 Completed NT PRO BNPII Stat Lab 02/26/23 16:55 Completed PROCALCITONIN Stat Lab 02/26/23 16:55 Completed TROPONIN Q4H Lab 02/26/23 16:30 Completed TROPONIN Q4H Lab 02/26/23 20:30 Ordered TROPONIN Q4H Lab 02/27/23 00:30 Ordered Respiratory Therapy Assessment DAILY RT 02/26/23 16:36 Active Medication Summary Generic Name Dose Route Start Last Admin Trade Name Freq PRN Reason Stop Dose Admin Doxycycline Hyclate 100 mg/ 100 mls @ 100 mls/hr 02/26/23 22:00 02/26/23 18:46 Dextrose IV 03/28/23 21:59 100 mls/hr Q12HT LEONIE Administration Discontinued Medications Generic Name Dose Route Start Last Admin Trade Name Freq PRN Reason Stop Dose Admin Hydrocodone Bitart/Acetaminophen 15 ml 02/26/23 16:28 02/26/23 16:31 Hydrocodone/Acetaminophen 5 Ml Udcup PO 02/26/23 16:29 15 ml STAT STA Administration Hydrocodone Bitart/Acetaminophen Confirm 02/26/23 16:30 Hydrocodone/Acetaminophen 5 Ml Udcup Administered 02/26/23 16:31 Dose 15 ml .ROUTE .STK-MED ONE Albuterol/Ipratropium 3 ml 02/26/23 16:26 02/26/23 16:34 Ipratropium/Albuterol Sulfate 3 Ml Ampul.Neb IH 02/26/23 16:27 3 ml STAT ONE Administration Albuterol/Ipratropium Confirm 02/26/23 16:32 Ipratropium/Albuterol Sulfate 3 Ml Ampul.Neb Administered 02/26/23 16:33 Dose 3 ml IH .STK-MED ONE Doxycycline Hyclate Confirm 02/26/23 18:41 Doxycycline Hyclate 100 Mg/Vial Injection Administered 02/26/23 18:42 Dose 100 mg IV .STK-MED ONE Dextrose Confirm 02/26/23 18:42 D5w 100ml Mini Bag 100 Ml Administered 02/26/23 18:43 Dose 100 mls @ ud IV .STK-MED ONE Ondansetron HCl 4 mg 02/26/23 18:27 02/26/23 18:30 Ondansetron Hcl 4 Mg/2 Ml Vial IV 02/26/23 18:28 4 mg STAT ONE Administration Ondansetron HCl Confirm 02/26/23 18:27 Ondansetron Hcl 4 Mg/2 Ml Vial Administered 02/26/23 18:28 Dose 4 mg .ROUTE .STK-MED ONE Lab/Rad Data: Laboratory Result Diagrams 02/26/23 16:54 02/26/23 16:54 Laboratory Results 02/26/23 02/26/23 02/26/23 Range/Units 16:55 16:55 16:54 WBC (4.0-10.5) x10^3/uL RBC (4.1-5.6) x10^6/uL Hgb (12.5-18.0) g/dL Hct (42-50) % MCV (78-100) fL MCH (26-32) pg MCHC (32-36) g/dL RDW (11.5-14.0) % Plt Count (150-450) x10^3/uL MPV (7.5-11.0) fL Gran % (36.0-66.0) % Immature Gran % (Auto) (0.00-0.4) % Nucleat RBC Rel Count (0.00-0.1) % Eos # (Auto) (0-0.5) x10^3/uL Immature Gran # (Auto) (0.00-0.03) x10^3u/L Absolute Lymphs (auto) (1.0-4.6) x10^3/uL Absolute Monos (auto) (0.0-1.3) x10^3/uL Absolute Nucleated RBC (0.00-0.01) x10^3u/L Lymphocytes % (24.0-44.0) % Monocytes % (0.0-12.0) % Eosinophils % (0.00-5.0) % Basophils % (0.0-0.4) % Absolute Granulocytes (1.4-6.9) x10^3/uL Basophils # (0-0.4) x10^3/uL D-Dimer 1.10 H* (0.0-0.50) mg/L Sodium 139 (137-145) mmol/L Potassium 3.4 L (3.5-5.1) mmol/L Chloride 104 (98-107) mmol/L Carbon Dioxide 23 (22-30) mmol/L Anion Gap 15.9 H (5-15) MEQ/L BUN 28 H (9-20) mg/dL Creatinine 1.19 (0.66-1.25) mg/dL Estimated GFR > 60.0 ML/MIN Glucose 101 (74-106) mg/dL Lactic Acid (0.4-2.0) Calcium 9.1 (8.4-10.2) mg/dL Magnesium 2.2 (1.6-2.3) mg/dL Total Bilirubin 1.20 (0.2-1.3) mg/dL AST 32 (17-59) U/L ALT 21 (0-50) U/L Alkaline Phosphatase 82 (38-126) U/L Troponin I (0.000-0.034) ng/mL NT-Pro-B Natriuret Pep 417 (<300) pg/mL Serum Total Protein 8.0 (6.3-8.2) g/dL Albumin 4.5 (3.5-5.0) g/dL Procalcitonin 0.223 H (0.030-0.080) ng/mL 02/26/23 02/26/23 02/26/23 Range/Units 16:54 16:30 16:26 WBC 9.9 (4.0-10.5) x10^3/uL RBC 4.63 (4.1-5.6) x10^6/uL Hgb 13.9 (12.5-18.0) g/dL Hct 41.6 L (42-50) % MCV 89.8 (78-100) fL MCH 30.0 (26-32) pg MCHC 33.4 (32-36) g/dL RDW 13.3 (11.5-14.0) % Plt Count 239 (150-450) x10^3/uL MPV 9.5 (7.5-11.0) fL Gran % 70.4 H (36.0-66.0) % Immature Gran % (Auto) 0.3 (0.00-0.4) % Nucleat RBC Rel Count 0.0 (0.00-0.1) % Eos # (Auto) 0.17 (0-0.5) x10^3/uL Immature Gran # (Auto) 0.03 (0.00-0.03) x10^3u/L Absolute Lymphs (auto) 1.61 (1.0-4.6) x10^3/uL Absolute Monos (auto) 1.07 (0.0-1.3) x10^3/uL Absolute Nucleated RBC 0.00 (0.00-0.01) x10^3u/L Lymphocytes % 16.3 L (24.0-44.0) % Monocytes % 10.8 (0.0-12.0) % Eosinophils % 1.7 (0.00-5.0) % Basophils % 0.5 (0.0-0.4) % Absolute Granulocytes 6.97 H (1.4-6.9) x10^3/uL Basophils # 0.05 (0-0.4) x10^3/uL D-Dimer (0.0-0.50) mg/L Sodium (137-145) mmol/L Potassium (3.5-5.1) mmol/L Chloride (98-107) mmol/L Carbon Dioxide (22-30) mmol/L Anion Gap (5-15) MEQ/L BUN (9-20) mg/dL Creatinine (0.66-1.25) mg/dL Estimated GFR ML/MIN Glucose (74-106) mg/dL Lactic Acid 1.4 (0.4-2.0) Calcium (8.4-10.2) mg/dL Magnesium (1.6-2.3) mg/dL Total Bilirubin (0.2-1.3) mg/dL AST (17-59) U/L ALT (0-50) U/L Alkaline Phosphatase (38-126) U/L Troponin I < 0.012 (0.000-0.034) ng/mL NT-Pro-B Natriuret Pep (<300) pg/mL Serum Total Protein (6.3-8.2) g/dL Albumin (3.5-5.0) g/dL Procalcitonin (0.030-0.080) ng/mL - Progress Progress: improved, re-examined Air Movement: good Progress Note: 02/26/23 19:25 57-year-old male with 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 Patient reports dry hacking cough. During the interview patient was constantly coughing. Denies fever or chills. Does have history of COPD asthma as well. Patient denies any chest pain or palpitations. Patient also having right foot swelling for the last 3 to 4 days with pr ogressive worsening. Does have neuropathy and does not feel much pain. Denies any fall or trauma. Patient reported initially it started in the distal foot and now involve the whole foot and approaching towards the ankle. He is given liquid Dupont along with breathing treatment, on reevaluation he is feeling much better. Chest x-ray negative for any acute cardiopulmonary findings. Normal white count, lactate, mildly elevated procalcitonin. 02/26/23 20:19 X-rays right foot showed fracture fourth and fifth metatarsal with some displacement. Patient discussed with Dr. Rodriges who has reviewed the x-rays, recommended posterior splint which patient would be placed in, nonweightbearing and he will follow-up with orthopedics tomorrow. Patient has elevated D-dimer and CTA is negative for PE or any other acute findings. I believe patient has bronchitis, will continue with doxycycline and given 1 dose IV in the ER. Discussed signs symptoms of worsening needing return to ER which patient seems understanding. Blood Culture(s) Obtained: No Antibiotics given: No Discussed with DrOzzy: Other ( Dr. Rodriges at 6:30 PM) Counseled pt/family regarding: lab results, diagnosis, need for follow-up, rad results Medical Desision Making - Discussion of managment Care discussed with:: specialist (Binding Cementer French Cord Dr. Rodriges at 6:30 PM) Reviewed:: Test results, Need for additional workup Agreed on:: Treatment plan Will see patient: In office - Risk of complications The pt has a mod risk of morbidity or mortality based on: Need for prescription drug management - Departure Departure Disposition: Home Clinical Impression: Acute bronchitis, Foot fracture, right Condition: Stable Critical Care Time: No Referrals: HARRISON VENTURA MD [Primary Care Provider] - Follow up with PCP 1 day BRYN HERRERA DPM [ACTIVE STAFF] - Follow up/PCP as directed (Tomorrow for reevaluation) Instructions: Acute bronchitis, Foot Fracture (DC) Additional Instructions: Nonweightbearing. Intermittent ice application. Follow-up with orthopedics for reevaluation in the morning. Use inhaler which you have at home for cough and shortness of breath. Continue with antibiotics. Return to ER for worsening cough or difficulty breathing etc. Prescriptions: Hydrocodone/Acetaminophen [Hydrocodone-Acetamin 5-325 mg] 1 tab PO Q6HPRN PRN 3 Days #12 tablet MDD 4 PRN Reason: Pain Doxycycline Hyclate 100 mg [Vibramycin 100 MG] 100 mg PO BID #14 tab
[2023-02-26 20:52] VITALS: BP 139/77; PULSE 62; RESP 21
[2023-02-26] MEDS ORDERED: VIBRAMYCIN 100 MG*** 100 MG in Dextrose 5%/Water IV Soln. 100ML PLUS BAG 100 ML IV SCH (22:00)
--- NOTE | 2023-02-27 08:46 | XRAY ---
Indication: Short of breath. Elevated d-dimer. Pulmonary embolus. Multiple contiguous axial images obtained through the chest using 80 cc Isovue 370 contrast and PE protocol. Comparison: December 26, 2021 Good opacification of the pulmonary arteries to include the lobar and segmental branches. No pulmonary embolus. Heart borderline enlarged again with scattered coronary calcifications. Aorta minimally atherosclerotic without aneurysm/dissection. No pathologic mediastinal/hilar lymphadenopathy. Lungs demonstrates stable right midlung pleural parenchymal fibrosis/scarring with suture material and small right mid lung calcified granuloma. Minimal bibasilar subcentimeter atelectasis/scarring. No suspicious pulmonary mass/nodule, infiltrate, or effusion. Bony thorax intact again with mild degenerative changes throughout the spine. Limited upper abdomen again demonstrates cholecystectomy clips. Impression: 1. Continued negative pulmonary embolus. No new/acute cardiopulmonary abnormalities. 2. Again chronic findings including right lung postsurgical changes, arteriosclerotic disease, chronic bony findings, and old granulomatous disease.
--- NOTE | 2023-02-27 08:48 | XRAY ---
Indication: Pain and swelling. No known injury. Comparison: January 01, 2023 3 nonweightbearing views right foot demonstrates new mildly displaced 4th metatarsal and nondisplaced 5th metatarsal shaft fractures with soft tissue swelling. Remaining foot unchanged again with osteopenia, old 5th proximal phalanx fracture, mild tarsometatarsal degenerative changes, tiny heel spurs, and punctate plantar heterotopic ossification.
== END 2023-02-26 21:28 | disposition home or self-care (01) ==
LOC: ED 15:54
DX: J20.9 Acute bronchitis, unspecified (principal); S92.341A Displaced fracture of fourth metatarsal bone, right foot, initial encounter for closed fracture; S92.351A Displaced fracture of fifth metatarsal bone, right foot, initial encounter for closed fracture; R05.9 Cough, unspecified; R06.02 Shortness of breath; E11.42 Type 2 diabetes mellitus with diabetic polyneuropathy; I10 Essential (primary) hypertension; Z79.891 Long term (current) use of opiate analgesic; Z79.4 Long term (current) use of insulin; Z79.84 Long term (current) use of oral hypoglycemic drugs; Z79.899 Other long term (current) drug therapy; Z86.16 Personal history of COVID-19
CPT/HCPCS: 29515; 36000; 36415; 71045; 71260; 73630; 80053; 83605; 83735; 83880; 84145; 84484; 85025; 85379; 87040; 93005; 93041; 94640; 96374; 99284; J2405; A9270-GY

== ENCOUNTER 2023-04-18 12:48 | Emergency (ER) | payer BC ==
[2023-04-18] MEDS ORDERED: XYLOCAINE 1% HCL 20 ML MDV IJ ONE (12:49)
[2023-04-18 12:58] VITALS: RESP 18; TEMP 97.7
[2023-04-18] MEDS ORDERED: Rocephin 1000 MG INJ IM ONE (13:03)
[2023-04-18 13:27] LABS: Absolute Neutrophil Ct (ANC) 5.08 x10^3/uL (1.4-6.9); BASOPHIL % 0.5 % (0.0-0.4); Basophil (Absolute #) 0.04 x10^3/uL (0-0.4); Eosinophil % 2.4 % (0.00-5.0); Eosinophil (Absolute #) 0.19 x10^3/uL (0-0.5); Hematocrit 42.3 % (42-50); Hemoglobin 14.1 g/dL (12.5-18.0); IMMATURE GRAN # 0.02 x10^3u/L (0.00-0.03); IMMATURE GRAN % 0.3 % (0.00-0.4); Lymphocytes % 25.3 % (24.0-44.0); Mean Cell Volume 89.6 fL (78-100); Mean Corpuscular Hemoglobin 29.9 pg (26-32); Mean Corpuscular Hgb Concent. 33.3 g/dL (32-36); Mean Platelet Volume 9.4 fL (7.5-11.0); Monocyte (Absolute #) 0.58 x10^3/uL (0.0-1.3); Monocytes % 7.3 % (0.0-12.0); Neutrophil % 64.2 % (36.0-66.0); Platelet Count 213 x10^3/uL (150-450); Red Blood Count 4.72 x10^6/uL (4.1-5.6); Red Cell Distribution Width 13.2 % (11.5-14.0); White Blood Count 7.9 x10^3/uL (4.0-10.5)
[2023-04-18] MEDS ORDERED: Rocephin 1000 MG INJ ONE (13:27)
--- NOTE | 2023-04-18 13:30 | ERPHSYRPT ---
- History of Present Illness Time Seen by Provider: 04/18/23 13:27 Source: patient, family Exam Limitations: no limitations Patient Subjective Stated Complaint: pt here for possible infection to surgical site. pt had surgery on 03/17/23 for a fracture, Triage Nursing Assessment: pt arrived per scooter, alert, resp easy, skin w/d/p. has drainage from surgical site. no redness or swelling Physician History: Patient is 57-year-old male with significant past medical history of type 2 diabetes insulin requiring history of carcinoid syndrome history of COPD hypertension diabetic nephropathy recently 6 weeks ago he was having have some foot injury and diagnosed having mildly displaced fourth metatarsal fracture as well as nondisplaced fifth metatarsal fracture on the right foot for which patient underwent surgery patient was doing better and patient was in boot but today the wound scab came out and having some purulent discharge from the surgical wound so patient came to the emergency room. Patient is also compla ining of redness around the wound area as well as some redness in the calf area. Patient denies any fever chills nausea vomiting. He has aapt with Podiatry surgeon on 04/23/2023 Severity of Pain-Max: none Severity of Pain-Current: none Lower Extremities Pain: foot: right Modifying Factors: Improves With: nothing Associated Symptoms: none Allergies/Adverse Reactions: lisinopril Allergy (Mild, Verified 04/18/23 12:54) Anaphylactic Reaction doxycycline Allergy (Verified 04/18/23 12:54) naproxen Adverse Reaction (Mild, Verified 04/18/23 12:54) Rash Home Medications: Albuterol 2.5 mg/3 ml Neb [Proventil 2.5 mg/3 ml Neb] 1 neb IH QID PRN PRN 10/15/16 [History] Albuterol Sulfate [Proair Hfa] 2 puffs IH QIDPRN PRN 10/15/16 [History] Amlodipine Besylate 5 mg [Norvasc 5 mg] 10 mg PO BID 11/12/20 [History] Insulin Glargine,Hum.rec.anlog [Basaglar Kwikpen U-100] 20 unit SQ BID 11/13/20 [History] Gabapentin [Neurontin ] 600 mg PO TID 02/17/21 [History] Esomeprazole Magnesium [Nexium] 40 mg PO BID 12/26/21 [History] Sildenafil Citrate [Viagra] 100 mg PO DAILY PRN PRN 12/26/21 [History] Empagliflozin [Jardiance] 25 mg PO DAILY 03/30/22 [History] Ergocalciferol (Vitamin D2) [Vitamin D2] 50,000 unit PO UD 03/30/22 [History] Metoprolol Tartrate 25 mg [Lopressor 25MG Tab] 1.5 tab PO BID 03/30/22 [History] Diphenoxylate HCl/Atropine [Lomotil] 1 tab PO QIDPRN PRN 07/28/22 [History] Torsemide 20 mg [Demadex 20 mg] 20 mg PO DAILY 10/14/22 [History] Nortriptyline HCl 1 ea DAILY 04/18/23 [History] Hx Tetanus, Diphtheria Vaccination/Date Given: Yes Hx Influenza Vaccination/Date Given: Yes Hx Pneumococcal Vaccination/Date Given: Yes Immunizations Up to Date: Yes Travel Risk - International Travel Have you traveled outside of the country in past 3 weeks: No - Coronavirus Screening Are you exhibiting any of the following symptoms?: No Close contact with a COVID-19 positive Pt in past 14-21 Days: No - Vaccine Status Have you recieved a Covid-19 vaccination: Yes [employer]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 - Vaccination Dates Date of 2cond Vaccination (if applicable): 2020 - Review of Systems Constitutional: No Fever, No Chills Eyes: No Symptoms Ears, Nose, & Throat: No Symptoms Respiratory: No Cough, No Dyspnea Cardiac: No Chest Pain, No Edema, No Syncope Abdominal/Gastrointestinal: No Abdominal Pain, No Nausea, No Vomiting, No Diarrhea Genitourinary Symptoms: No Dysuria Musculoskeletal: No Back Pain, No Neck Pain Skin: Cellulitis (right foot of surgical wound), No Rash Neurological: No Dizziness, No Focal Weakness, No Sensory Changes Psychological: No Symptoms Endocrine: No Symptoms All Other Systems: Reviewed and Negative - Past Medical History Pertinent Past Medical History: Yes Neurological History: Peripheral Neuropathy ENT History: Cataracts Cardiac History: Hypertension Respiratory History: Asthma, COPD, Lung Cancer, Pneumonia, Other Endocrine Medical History: Diabetes Type II Musculoskeletal History: Fractures GI Medical History: GERD, Gallbladder Disease, Irritable Bowel, Other History: No Pertinent History Psycho-Social History: No Pertinent History Male Reproductive Disorders: No Pertinent History Other Medical History: HAS BEEN IN REMISSION FOR LUNG CANCER X 10 YEARS. HX FRACTURE RIBS AND T6, T7 6 YEARS AGO AFTER FALL FROM LADDER. 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 both cataracts removed- suboptical implant in;. rt middle lobe lung remove. right foot 03/17/2023 - Social History Smoking Status: Never smoker Exposure to second hand smoke: No Drug Use: none Patient Lives Alone: No Significant Family History: no pertinent family hx - Nursing Vital Signs Nursing Vital Signs: Initial Vital Signs Temperature 97.7 F 04/18/23 12:57 Pulse Rate 69 04/18/23 12:57 Respiratory Rate 18 04/18/23 12:57 Blood Pressure 179/104 04/18/23 12:57 O2 Sat by Pulse Oximetry 96 04/18/23 12:57 Pain Scale Pain Intensity 4 - Physical Exam General Appearance: alert Eyes, Ears, Nose, Throat Exam: moist mucous membranes Neck Exam: non-tender, supple Cardiovascular/Respiratory Exam: chest non-tender, normal breath sounds, regular rate/rhythm, no respiratory distress Gastrointestinal/Abdominal Exam: non-tender, guarding Back Exam: normal inspection, No vertebral tenderness Foot Exam: right foot: soft tissue tenderness, swelling Neuro/Tendon Exam: normal sensation, normal motor functions Mental Status Exam: alert, oriented x 3, cooperative Skin Exam: normal color, warm, dry SpO2: 96 - Course Nursing assessment & vital signs reviewed: Yes Ordered Tests: Active Orders 24 hr Category Date Time Status Wound Care STAT Care 04/18/23 13:03 Active CBC W DIFF Stat Lab 04/18/23 13:23 Completed CMP Stat Lab 04/18/23 13:23 Completed Medication Summary Discontinued Medications Generic Name Dose Route Start Last Admin Trade Name Freq PRN Reason Stop Dose Admin Ceftriaxone Sodium 1,000 mg 04/18/23 13:03 04/18/23 13:33 Ceftriaxone Sodium 1000 Mg Inj Vial IM 04/18/23 13:04 1,000 mg STAT ONE Administration Ceftriaxone Sodium Confirm 04/18/23 13:27 Ceftriaxone Sodium 1000 Mg Inj Vial Administered 04/18/23 13:28 Dose 1,000 mg .ROUTE .[facility] Lab/Rad Data: Laboratory Result Diagrams 04/18/23 13:23 04/18/23 13:23 Laboratory Results 04/18/23 04/18/23 Range/Units 13: 13:23 WBC 7.9 (4.0-10.5) x10^3/uL RBC 4.72 (4.1-5.6) x10^6/uL Hgb 14.1 (12.5-18.0) g/dL Hct 42.3 (42-50) % MCV 89.6 (78-100) fL MCH 29.9 (26-32) pg MCHC 33.3 (32-36) g/dL RDW 13.2 (11.5-14.0) % Plt Count 213 (150-450) x10^3/uL MPV 9.4 (7.5-11.0) fL Gran % 64.2 (36.0-66.0) % Immature Gran % (Auto) 0.3 (0.00-0.4) % Nucleat RBC Rel Count 0.0 (0.00-0.1) % Eos # (Auto) 0.19 (0-0.5) x10^3/uL Immature Gran # (Auto) 0.02 (0.00-0.03) x10^3u/L Absolute Lymphs (auto) 2.00 (1.0-4.6) x10^3/uL Absolute Monos (auto) 0.58 (0.0-1.3) x10^3/uL Absolute Nucleated RBC 0.00 (0.00-0.01) x10^3u/L Lymphocytes % 25.3 (24.0-44.0) % Monocytes % 7.3 (0.0-12.0) % Eosinophils % 2.4 (0.00-5.0) % Basophils % 0.5 (0.0-0.4) % Absolute Granulocytes 5.08 (1.4-6.9) x10^3/uL Basophils # 0.04 (0-0.4) x10^3/uL Sodium 139 (137-145) mmol/L Potassium 3.6 (3.5-5.1) mmol/L Chloride 105 (98-107) mmol/L Carbon Dioxide 23 (22-30) mmol/L Anion Gap 14.1 (5-15) MEQ/L BUN 17 (9-20) mg/dL Creatinine 0.86 (0.66-1.25) mg/dL Estimated GFR > 60.0 ML/MIN Glucose 143 H (74-106) mg/dL Calcium 9.1 (8.4-10.2) mg/dL Total Bilirubin 0.60 (0.2-1.3) mg/dL AST 23 (17-59) U/L ALT 23 (0-50) U/L Alkaline Phosphatase 81 (38-126) U/L Serum Total Protein 7.0 (6.3-8.2) g/dL Albumin 4.3 (3.5-5.0) g/dL RAD/FOOT (MINIMUM 3 VIEWS) Indication: Pain and swelling. No known injury. Comparison: January 01, 2023 3 nonweightbearing views right foot demonstrates new mildly displaced 4th metatarsal and nondisplaced 5th metatarsal shaft fractures with soft tissue swelling. Remaining foot unchanged again with osteopenia, old 5th proximal phalanx fracture, mild tarsometatarsal degenerative changes, tiny heel spurs, and punctate plantar heterotopic ossification. - Progress Progress: unchanged Counseled pt/family regarding: diagnosis, need for follow-up Medical Desision Making - Independent Historian Additional History obtained from: Spouse - Diagnostic Testing Diagnostic test were ordered, analyzed, and reviewed by me: No - Departure Departure Disposition: Home Clinical Impression: Unspecified open wound, right foot, initial encounter Surgical wound breakdown Qualifiers: Encounter type: initial encounter Qualified Code(s): T81.31XA - Disruption of external operation (surgical) wound, not elsewhere classified, initial encounter Condition: Stable Critical Care Time: No Referrals: HARRISON VENTURA MD [Primary Care Provider] - Follow up/PCP as directed Instructions: Surgical Wound (DC), Wound Care (DC), Wound Care Additional Instructions: Discharge/Care Plan NILAY MOREJON was seen on 04/18/23 in the Emergency Room. The patient was counseled regarding Diagnosis,Lab results, Imaging studies, need for follow up and when to return to the Emergency Room. Prescriptions given: Discharge Note I have spoken with the patient and/or caregivers. I have explained the patient's condition, diagnosis and treatment plan based on the information available to me at this time. I have answered the patient's and/or caregiver's questions and addressed any concerns. The patient and/or caregivers have as good understanding of the patient's diagnosis, condition and treatment plan as can be expected at this point. The vital signs have been stable. The patient's condition is stable and appropriate for discharge from the emergency department. The patient will pursue further outpatient evaluation with the primary care physician or other designated or consulting physician as outlined in the discharge instructions. The patient and/or caregivers are agreeable to this plan of care and follow-up instructions have been explained in detail. The patient and/or caregivers have received these instruction. The patient/and or caregivers are aware that any significant change in condition or worsening of symptoms should prompt an immediate return to this or the closest emergency department or call 911. NILAY MOREJON was seen on 04/18/23 n the Emergency Room. At that time you were treated for an emergent condition, during your visit Laboratory, Radiology and/or other procedures may have been ordered. It is very important that you follow-up with your Primary Care Physician HARRISON VENTURA within the next 24-48 hours to review your Emergency Room visit and the final results of testing that was ordered. Some test results such as Urine Cultures, Blood Cultures, and other cultures if ordered will not be finalized for 24-48 hours. If you do not have a Primary Care Provider please call the medical records department at [phone] ext [phone] to obtain a copy of your results or you may sign into our patient portal to obtain these results by visiting us @ [email or web address] and completing the following steps: 1. Click on the Patient Portal link 2. Click the Patient Self Enrollment Link to complete the enrollment form and entering your 3. Once the enrollment form is completed you will receive an email with a temporary ID and password at the email address you provided. 4. Next choose a user name and password. Your user name must be at least 4 characters long and your password must be at least 4 characters long. 5. Choose a security question from the list and provide your answer to the question. If you already have signed into the Health Portal you may access your Health Care Information 23/02 by the following steps: 1. Login to our website @ [email or web address] 2. Enter your original user name and password. FAQS The [facility] Health Portal is an online tool that contains your Lab Results, Radiology Reports, Visit History, Discharge Instructions and Health Summary Lab and Radiology Results will not be available for 72 hours on the portal. The Portal is a secure site, passwords are encryted and URLs are re-written so they cannot be copied and pasted. You and authorized family members are the only ones who can access your Portal. Also there is a timeout feature that protects your information if you leave the Portal page open. If you have technical difficulty please use the Contact Us link on the page this will allow you to submit any questions you have regarding the Portal or you may contact the Medical Record Department at [phone] ext [phone]. Prescriptions: Levofloxacin [Levaquin 500 MG Tablet] 500 mg PO QAM #10 tablet
[2023-04-18 13:40] LABS: ALBUMIN 4.3 g/dL (3.5-5.0); ALKALINE PHOSPHATASE 81 U/L (38-126); ANION GAP 14.1 MEQ/L (5-15); BLOOD UREA NITROGEN 17 mg/dL (9-20); CHLORIDE 105 mmol/L (98-107); Calcium 9.1 mg/dL (8.4-10.2); Carbon Dioxide 23 mmol/L (22-30); Creatinine 1 0.86 mg/dL (0.66-1.25); EST GLOMERULAR FILTRATION RATE > 60.0 ML/MIN; Glucose 143 mg/dL (74-106); Potassium 3.6 mmol/L (3.5-5.1); SGOT/AST 23 U/L (17-59); SGPT/ALT 23 U/L (0-50); SODIUM 139 mmol/L (137-145)
[2023-04-18] MEDS ORDERED: BACIGUENT PACKET TP ONE (13:47)
[2023-04-18] MEDS ORDERED: BACIGUENT PACKET ONE (13:48)
[2023-04-18 13:56] VITALS: BP 158/87; PULSE 55; O2SAT 95
== END 2023-04-18 13:57 | disposition home or self-care (01) ==
LOC: ED 12:48
DX: T81.31XA Disruption of external operation (surgical) wound, not elsewhere classified, initial encounter (principal); E11.42 Type 2 diabetes mellitus with diabetic polyneuropathy; I10 Essential (primary) hypertension; Z79.4 Long term (current) use of insulin; Z79.84 Long term (current) use of oral hypoglycemic drugs; Z79.899 Other long term (current) drug therapy; Z86.16 Personal history of COVID-19
CPT/HCPCS: 36415; 80053; 85025; 96372; 99283; J0696; A9270-GY

== ENCOUNTER 2024-07-23 16:08 | Inpatient (IN) | payer BC ==
--- NOTE | 2024-07-23 16:51 | ERPHSYRPT ---
- History of Present Illness Time Seen by Provider: 07/23/24 16:26 Source: patient, family Exam Limitations: no limitations Patient Subjective Stated Complaint: Pt states that his left foot may be broken, he broke his right foot last year and didn't know it due to neuropathy, left foot is swollen and has a badly infected middle toe Triage Nursing Assessment: Pt brought to the ER by his , hypertensive, rates pain as 2/10, left foot swollen on the lateral side, denies injury, left third toe is swollen and has an open wound, pulses normal, skin n/w/d, no difficulty breathing, walked into the ER Physician History: 58 years old male with history of diabetes mellitus, peripheral neuropathy presented in the ER with 2 weeks history of left third toe swelling. Patient reports crunchy sensation/sounds with ambulation and is worried about this being broken. Patient reports he had similar symptoms in the right toes which later on was found patient has broken. Patient denies any fever or chills. Reports more swelling towards the end of the day and gets better in the morning. Thinks he possibly stepped on something. No fever or chills reported. No discharge. Allergies/Adverse Reactions: lisinopril Allergy (Mild, Verified 07/23/24 16:23) Anaphylactic Reaction doxycycline Allergy (Verified 07/23/24 16:23) naproxen Adverse Reaction (Mild, Verified 07/23/24 16:23) Rash Home Medications: Albuterol 2.5 mg/3 ml Neb [Proventil 2.5 mg/3 ml Neb] 1 neb IH QID PRN PRN 10/15/16 [History] Albuterol Sulfate [Proair Hfa] 2 puffs IH QIDPRN PRN 10/15/16 [History] Amlodipine Besylate 5 mg [Norvasc 5 mg] 10 mg PO BID 11/12/20 [History] Insulin Glargine,Hum.rec.anlog [Basaglar Kwikpen U-100] 30 unit SQ BID 11/13/20 [History] Gabapentin [Neurontin ] 600 mg PO TID 02/17/21 [History] Esomeprazole Magnesium [Nexium] 40 mg PO BID 12/26/21 [History] Sildenafil Citrate [Viagra] 100 mg PO DAILY PRN PRN 12/26/21 [History] Empagliflozin [Jardiance] 25 mg PO DAILY 03/30/22 [History] Ergocalciferol (Vitamin D2) [Vitamin D2] 50,000 unit PO UD 03/30/22 [History] Metoprolol Tartrate 25 mg [Lopressor 25MG Tab] 1.5 tab PO BID 03/30/22 [Hi story] Torsemide 20 mg [Demadex 20 mg] 20 mg PO DAILY 10/14/22 [History] Nortriptyline HCl 25 mg PO DAILY 04/18/23 [History] Loperamide HCl 2 mg [Imodium 2 mg] 4 mg PO BID 07/23/24 [History] Hx Tetanus, Diphtheria Vaccination/Date Given: Yes Hx Influenza Vaccination/Date Given: Yes Hx Pneumococcal Vaccination/Date Given: Yes Travel Risk - International Travel Have you traveled outside of the country in past 3 weeks: No - Emerging Infectious Disease Are you exhibiting symptoms associated with any current EIDs: No - Review of Systems Constitutional: No Symptoms Ears, Nose, & Throat: No Symptoms Respiratory: No Symptoms Cardiac: No Symptoms Abdominal/Gastrointestinal: No Symptoms Musculoskeletal: Injury, Joint Pain, Joint Swelling Skin: Cellulitis, Skin Lesions Neurological: No Symptoms Endocrine: No Symptoms Hematologic/Lymphatic: No Symptoms - Past Medical History Pertinent Past Medical History: Yes Neurological History: Peripheral Neuropathy ENT History: Cataracts Cardiac History: Hypertension Respiratory History: Asthma, COPD, Lung Cancer, Pneumonia, Other Endocrine Medical History: Diabetes Type II Musculoskeletal History: Fractures GI Medical History: GERD, Gallbladder Disease, Irritable Bowel, Other History: No Pertinent History Psycho-Social History: No Pertinent History Male Reproductive Disorders: No Pertinent History Other Medical History: HAS BEEN IN REMISSION FOR LUNG CANCER X 10 YEARS. HX FR ACTURE RIBS AND T6, T7 6 YEARS AGO AFTER FALL FROM LADDER. 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 both cataracts removed- suboptical implant in;. rt middle lobe lung remove. right foot 03/17/2023 Significant Family History: no pertinent family hx - Social History Smoking Status: Never smoker Exposure to second hand smoke: No Drug Use: none Patient Lives Alone: No - Social Determinants of Health Will the patient participate in the screening: Yes Do you worry about a steady place to live?: No Do you have any problems with any of the following?: No known problems In the past 12 months,have you had to go without utilities?: No Transportation Issues: No Has anyone in your support network made you feel unsafe?: No Have you or anyone in your house had to go without enough: No - Nursing Vital Signs Nursing Vital Signs: Initial Vital Signs Temperature 97.3 F 07/23/24 16:13 Pulse Rate 71 07/23/24 16:13 Blood Pressure 179/98 07/23/24 16:13 O2 Sat by Pulse Oximetry 98 07/23/24 16:13 Pain Scale Pain Intensity 2 - Physical Exam General Appearance: no apparent distress Ears, Nose, Throat Exam: normal ENT inspection Neck Exam: normal inspection, full range of motion Respiratory Exam: normal breath sounds, lungs clear Cardiovascular Exam: regular rate/rhythm, normal heart sounds Back Exam: normal inspection Extremity Exam: inflammation (Left third toe with diffuse swelling extending proximally into dorsum of foot. Eroded skin at the total hip area.), joint swelling, swelling Neurologic Exam: alert, oriented x 3, cooperative, normal mood/affect Skin Exam: normal color SpO2 Interpretation: normal SpO2: 98 O2 Delivery: Room Air Ordered Tests: Active Orders 24 hr Category Date Time Status Bedrest ROUTINE Activity 07/23/24 21:05 Completed Up With Assistance ROUTINE Activity 07/23/24 21:05 Active Call Admit Doctor for Orders ON ADMISSION Care 07/23/24 21:05 Active Code Status Order ROUTINE Care 07/23/24 21:05 Active Fall Protocol Q1H Care 07/23/24 21:05 Active POCT Glucose Check ACHS Care 07/23/24 21:[address] in Observation ROUTINE Care 07/23/24 21:05 Active Consistent Carbohydrate Diet 1800 Calorie Diet 07/24/24 Breakfast Active FOOT (MINIMUM 3 VIEWS) Stat Exams 07/23/24 16:47 Completed BLOOD CULTURE Stat Lab 07/23/24 17:16 Received CBC W DIFF Stat Lab 07/23/24 17:16 Completed CMP Stat Lab 07/23/24 17:16 Completed Lactic Acid Stat Lab 07/23/24 17:05 Completed Pulse Oximetry CONTINUOUS RT 07/23/24 21:05 Completed Transfer Order Routine Transfer 07/23/24 Completed Medication Summary Generic Name Dose Route Start Last Admin Trade Name Freq PRN Reason Stop Dose Admin Acetaminophen 325 mg 07/23/24 21:28 Acetaminophen 325 Mg Tablet PO 08/22/24 21:27 Q4H PRN PRN PAIN, FEVER, HEADACHE Albuterol/Ipratropium 3 ml 07/24/24 01:00 Ipratropium/Albuterol Sulfate 3 Ml Ampul.Neb IH 08/23/24 00:59 Q6HRT LEONIE Amlodipine Besylate 5 mg 07/23/24 22:00 07/23/24 22:31 Amlodipine Besylate 5 Mg Tablet PO 08/22/24 21:59 5 mg BID LEONIE Administration Empagliflozin 25 mg 07/24/24 10:00 Empagliflozin 10 Mg Tablet PO 08/23/24 09:59 DAILY LEONIE Gabapentin 600 mg 07/23/24 22:00 07/23/24 22:31 Gabapentin 300 Mg Capsule PO 08/22/24 21:59 600 mg TID LEONIE Administration Heparin Sodium (Beef Lung) 5,000 unit 07/23/24 22:00 07/23/24 22:30 Heparin 5000 Units/0.5 Ml 5,000 Unit/0.5 Ml Syr SQ 08/22/24 21:59 5,000 unit BID LEONIE Administration Sodium Chloride 1,000 mls @ 100 mls/hr 07/23/24 21:30 07/23/24 22:41 Sodium Chloride 0.9% 1000 Ml IV 08/22/24 21:29 100 mls/hr .Q10H LEONIE Administration Piperacillin Sod/Tazobactam 100 mls @ 200 mls/hr 07/23/24 23:00 07/23/24 22:31 Sod 3.375 gm/ Sodium Chloride IV 07/26/24 22:59 200 mls/hr Q8HRT LEONIE Administration Vancomycin HCl 1 gm in 200 mls @ 125 mls/hr 07/23/24 21:45 07/23/24 22:08 Vancomycin 1 Gram/200 Ml Bag IV 08/22/24 21:44 Not Given Q24H LEONIE Insulin Glargine 30 unit 07/23/24 22:22 07/23/24 22:31 Insulin Glargine 1 Unit SQ 08/22/24 22:21 15 unit BID LEONIE Administration Insulin Human Lispro 0 unit 07/23/24 21:28 Insulin Lispro 1 Unit SQ 08/22/24 21:27 UD PRN HYPERGLYCEMIA Metoprolol Tartrate 37.5 mg 07/23/24 22:17 07/23/24 22:31 Metoprolol Tartrate 25 Mg Tab PO 08/22/24 21:59 37.5 mg BID LEONIE Administration Ondansetron HCl 4 mg 07/23/24 21:28 Ondansetron Hcl 4 Mg/2 Ml Vial IV 08/22/24 21:27 Q6H PRN PRN NAUSEA/VOMITING Discontinued Medications Generic Name Dose Route Start Last Admin Trade Name Freq PRN Reason Stop Dose Admin Piperacillin Sod/Tazobactam 100 mls @ 200 mls/hr 07/23/24 18:25 07/23/24 19:23 Sod 3.375 gm/ Sodium Chloride IV 07/23/24 18:54 200 mls/hr STAT ONE Administration Vancomycin HCl 2 gm in 400 mls @ 133.333 mls/hr 07/23/24 18:26 07/23/24 20:10 Vancomycin 2 Gram/400 Ml Bag IV 07/23/24 21:25 133.333 mls/hr STAT ONE 133.33 mls/hr Administration Sodium Chloride Confirm 07/23/24 19:20 Sodium Chloride 100ml Mini-Bag Plus Administered 07/23/24 19:21 Dose 100 mls @ ud IV .STK-MED ONE Vancomycin HCl Confirm 07/23/24 20:08 Vancomycin 2 Gram/400 Ml Bag Administered 07/23/24 20:09 Dose 2 gm in 400 mls @ ud IV .STK-MED ONE Sodium Chloride Confirm 07/23/24 22:26 Sodium Chloride 100ml Mini-Bag Plus Administered 07/23/24 22:27 Dose 100 mls @ ud IV .STK-MED ONE Metoprolol Tartrate mg 07/23/24 22:00 Metoprolol Tartrate 25 Mg Tab PO 08/22/24 21:59 BID [facility] Non-Formulary Medication 20 unit 07/23/24 22:00 07/23/24 22:39 Insulin Glargine,Hum.Rec.Anlog [Basaglar Kwikpen U-100] SQ 08/22/24 21:59 Not Given BID LEONIE Non-Formulary Medication 30 unit 07/23/24 22:19 Insulin Glargine,Hum.Rec.Anlog [Basaglar Kwikpen U-100] SQ 08/22/24 21:59 BID LEONIE Piperacillin Sod/Tazobactam Sod Confirm 07/23/24 19:19 Piperacillin/Tazobactam Sodium 3.375 Gm Vial Administered 07/23/24 19:20 Dose 3.375 gm IV .STK-MED ONE Piperacillin Sod/Tazobactam Sod Confirm 07/23/24 19:20 Piperacillin/Tazobactam Sodium 3.375 Gm Vial Administered 07/23/24 19:21 Dose 3.375 gm IV .STK-MED ONE Piperacillin Sod/Tazobactam Sod Confirm 07/23/24 22:25 Piperacillin/Tazobactam Sodium 3.375 Gm Vial Administered 07/23/24 22:26 Dose 3.375 gm IV .STK-MED ONE Lab/Rad Data: Laboratory Result Diagrams 07/23/24 17:16 07/23/24 17:16 Laboratory Results 07/23/24 07/23/24 07/23/24 Range/Units 17:16 17:16 17:05 WBC 8.7 (4.23-9.07) x10^3/uL RBC 4.77 (4.63-6.08) x10^6/uL Hgb 14.2 (13.7-17.5) g/dL Hct 42.0 (40.1-51.0) % MCV 88.1 (79.0-92.2) fL MCH 29.8 (25.7-32.2) pg MCHC 33.8 (32.3-36.5) g/dL RDW 13.1 (11.6-14.4) % Plt Count 283 (163-337) x10^3/uL MPV 9.3 L (9.4-12.4) fL Gran % 57.8 (34.0-67.9) % Immature Gran % (Auto) 0.2 (0.001-0.429) % Nucleat RBC Rel Count 0.0 (0.00-0.2) % Eos # (Auto) 0.30 (0.04-0.54) x10^3/uL Immature Gran # (Auto) 0.02 (0.001-0.031) x10^3u/L Absolute Lymphs (auto) 2.51 (1.32-3.57) x10^3/uL Absolute Monos (auto) 0.79 (0.30-0.82) x10^3/uL Absolute Nucleated RBC 0.00 (0.00-0.012) x10^3u/L Lymphocytes % 28.9 (21.8-53.1) % Monocytes % 9.1 (5.3-12.2) % Eosinophils % 3.5 (0.8-7.0) % Basophils % 0.5 (0.2-1.2) % Absolute Granulocytes 5.03 (1.78-5.38) x10^3/uL Basophils # 0.04 (0.01-0.08) x10^3/uL Sodium 138 (135-145) mmol/L Potassium 3.4 L (3.5-5.1) mmol/L Chloride 101 (98-107) mmol/L Carbon Dioxide 29 (22-30) mmol/L Anion Gap 11.5 (5-15) MEQ/L BUN 21 H (9-20) mg/dL Creatinine 1.29 H (0.66-1.25) mg/dL Estimated GFR 63.5 ML/MIN Glucose 135 H (74-106) mg/dL Lactic Acid 1.2 (0.4-2.0) Calcium 9.5 (8.4-10.2) mg/dL Total Bilirubin 0.50 (0.2-1.3) mg/dL AST 34 (17-59) U/L ALT 25 (0-50) U/L Alkaline Phosphatase 143 H (38-126) U/L Serum Total Protein 7.5 (6.3-8.2) g/dL Albumin 4.5 (3.5-5.0) g/dL - Progress Progress: unchanged Progress Note: 07/23/24 20:34 58 years old is evaluated in the ER for left third toe swelling and questionable fracture. Patient has peripheral neuropathy. X-rays showed fracture of the fourth and fifth metatarsal with some displacement. Questionable changes in the third toe distal phalanx reviewed by me, official report is pending. Has normal white count, chemistries fairly unremarkable with stable CKD. I have shared the x-rays imaging and workup with Dr. Cardenas voip technician on-call, recommended broad- spectrum antibiotics Zosyn and vancomycin, admission to hospitalist service and podiatry would be a consult. I have discussed with Dr. Johnson and patient is being admitted. I have shared the results of workup with patient and family and plan of admission which they understand and agree. Discussed with Dr.: Estefanía, Other (Dr. Johnson hospitalist) Will see patient in: hospital (observation) Counseled pt/family regarding: lab results, diagnosis, need for follow-up, rad results Medical Desision Making - Independent Historian Additional History obtained from: Spouse - Discussion of managment Care discussed with:: hospitalist Reviewed:: Test results Agreed on:: Treatment plan, place in obs Will see patient: in hospital (Dr. Johnson hospitalist and Dr. Rodriges voip technician) - Diagnostic Testing Diagnostic test were ordered, analyzed, and reviewed by me: Yes Radiological Interpretation: Interpreted by me, Reviewed by me - Risk of complications The pt has a mod risk of morbidity or mortality based on: Need for prescription drug management The pt has a high risk of morbidity or mortality based on: Need for major surgery in patient with known risk factors, Decision regarding hospitilization or escalation of hosp level of care - Departure Departure Disposition: Observation Clinical Impression: Foot infection Foot fracture, left Qualifiers: Encounter type: initial encounter Fracture type: closed Qualified Code(s): S92.902A - Unspecified fracture of left foot, initial encounter for closed fracture Condition: Stable Critical Care Time: No
[2024-07-23 17:18] LABS: Absolute Neutrophil Ct (ANC) 5.03 x10^3/uL (1.78-5.38); BASOPHIL % 0.5 % (0.2-1.2); Basophil (Absolute #) 0.04 x10^3/uL (0.01-0.08); Eosinophil % 3.5 % (0.8-7.0); Hemoglobin 14.2 g/dL (13.7-17.5); IMMATURE GRAN # 0.02 x10^3u/L (0.001-0.031); IMMATURE GRAN % 0.2 % (0.001-0.429); Lymphocyte (Absolute #) 2.51 x10^3/uL (1.32-3.57); Lymphocytes % 28.9 % (21.8-53.1); Mean Cell Volume 88.1 fL (79.0-92.2); Mean Corpuscular Hemoglobin 29.8 pg (25.7-32.2); Mean Corpuscular Hgb Concent. 33.8 g/dL (32.3-36.5); Mean Platelet Volume 9.3 fL (9.4-12.4); Monocyte (Absolute #) 0.79 x10^3/uL (0.30-0.82); Monocytes % 9.1 % (5.3-12.2); Neutrophil % 57.8 % (34.0-67.9); Platelet Count 283 x10^3/uL (163-337); Red Blood Count 4.77 x10^6/uL (4.63-6.08); Red Cell Distribution Width 13.1 % (11.6-14.4); White Blood Count 8.7 x10^3/uL (4.23-9.07)
[2024-07-23 17:31] LABS: ALBUMIN 4.5 g/dL (3.5-5.0); ANION GAP 11.5 MEQ/L (5-15); BILIRUBIN,TOTAL 0.5 mg/dL (0.2-1.3); Calcium 9.5 mg/dL (8.4-10.2); Creatinine 1 1.29 mg/dL (0.66-1.25); EST GLOMERULAR FILTRATION RATE 63.5 ML/MIN; Potassium 3.4 mmol/L (3.5-5.1); Total Protein 7.5 g/dL (6.3-8.2)
[2024-07-23] MEDS ORDERED: PIPERACILLIN/TAZOBACTAM IV ONE ×3 (19:19→22:25)
[2024-07-23] MEDS ORDERED: Sodium Chloride 100ML MINI-BAG PLUS 100 ML IV ONE ×2 (19:20→22:26)
[2024-07-23] MEDS: PIPERACILLIN/TAZOBACTAM 3.375 GM in Sodium Chloride 100ML MINI-BAG PLUS 100 ML IV ONE (19:23)
[2024-07-23] MEDS ORDERED: VANCOMYCIN 2 GRAM/400 ML BAG 2 GM/400 ML PIGGYBACK IV ONE (20:08)
[2024-07-23] MEDS: VANCOMYCIN 2 GRAM/400 ML BAG 2 GM/400 ML PIGGYBACK IV ONE (20:10)
--- NOTE | 2024-07-23 21:24 | PCM.HP ---
History of Present Illness - Chief Complaint Chief Complaint: Left foot infection/fracture Date: 07/23/24 History of Present Illness: Mr. MOREJON is a 58 year old male with a past medical history significant for hypertension, diabetes with neuropathy, lung cancer, and previous diabetic R foot infection who presents to the hospital with concern that he may have stepped on something with his L foot and now doesn't feel/sound right when he walks. This happened last year with his R foot as he cannot feel much due to his neuropathy. X-ray L foot appears to show fractures of the fourth/fifth toes with displacement and possible third toe fracture too. ER physician discussed with podiatry, who has recommended admission for IV antibiotics. He is seen via telehealth, awake/alert. No fever/chills. No chest pain or shortness of breath. No nausea, vomiting or diarrhea. No dysuria, hematuria or urgency. - Review of Systems Constitutional: No Fever, No Chills Eyes: No Discharge, No Eye Pain Respiratory: No Cough, No Orthopnea, No Short Of Breath Cardiac: No Chest Pain, No Palpitations Abdominal/Gastrointestinal: No Abdominal Pain, No Nausea, No Vomiting Genitourinary Symptoms: No Dysuria, No Frequency, No Hematuria Musculoskeletal: Deformity, Injury Skin: No Rash Neurological: No Dizziness, No Focal Weakness Psychological: No Suicidal Ideations Endocrine: No Polyuria, No Polydipsia Hematologic/Lymphatic: No Blood Clots Medications & Allergies Home Medications: Home Medication List Albuterol 2.5 mg/3 ml Neb [Proventil 2.5 mg/3 ml Neb] 1 neb IH QID PRN PRN 10/15/16 [History Confirmed 04/18/23] Albuterol Sulfate [Proair Hfa] 2 puffs IH QIDPRN PRN 10/15/16 [History Confirmed 04/18/23] Amlodipine Besylate 5 mg [Norvasc 5 mg] 10 mg PO BID 11/12/20 [History Confirmed 04/18/23] Insulin Glargine,Hum.rec.anlog [Basaglar Kwikpen U-100] 20 unit SQ BID 11/13/20 [History Confirmed 04/18/23] Gabapentin [Neurontin ] 600 mg PO TID 02/17/21 [History Confirmed 04/18/23] Esomeprazole Magnesium [Nexium] 40 mg PO BID 12/26/21 [History Confirmed 04/18/23] Sildenafil Citrate [Viagra] 100 mg PO DAILY PRN PRN 12/26/21 [History Confirmed 04/18/23] Empagliflozin [Jardiance] 25 mg PO DAILY 03/30/22 [History Confirmed 04/18/23] Ergocalciferol (Vitamin D2) [Vitamin D2] 50,000 unit PO UD 03/30/22 [History Confirmed 04/18/23] Metoprolol Tartrate 25 mg [Lopressor 25MG Tab] 1.5 tab PO BID 03/30/22 [History Confirmed 04/18/23] Diphenoxylate HCl/Atropine [Lomotil] 1 tab PO QIDPRN PRN 07/28/22 [History Confirmed 04/18/23] Torsemide 20 mg [Demadex 20 mg] 20 mg PO DAILY 10/14/22 [History Confirmed 04/18/23] Hydrocodone/Acetaminophen [Hydrocodone-Acetamin 5-325 mg] 1 tab PO Q6HPRN PRN 3 Days #12 tablet MDD 4 02/26/23 [Rx Confirmed 04/18/23] Levofloxacin [Levaquin 500 MG Tablet] 500 mg PO QAM #10 tablet 04/18/23 [Rx] Nortriptyline HCl 1 ea DAILY 04/18/23 [History Confirmed 04/18/23] Allergies/Adverse Reactions: Allergies Allergy/AdvReac Type Severity Reaction Status Date / Time lisinopril Allergy Mild Anaphylactic Verified 07/23/24 16:23 Reaction doxycycline Allergy Verified 07/23/24 16:23 naproxen AdvReac Mild Rash Verified 07/23/24 16:23 - Past Medical History Past Medical History: Yes Neurological History: Peripheral Neuropathy ENT History: Cataracts Cardiac History: Hypertension Respiratory History: Asthma, COPD, Lung Cancer, Pneumonia, Other Endocrine Medical History: Diabetes Type II Musculoskelatal History: Fractures GI Medical History: GERD, Gallbladder Disease, Irritable Bowel, Other History: No Pertinent History Pyscho-Social History: No Pertinent History Male Reproductive Disorders: No Pertinent History Comment: HAS BEEN IN REMISSION FOR LUNG CANCER X 10 YEARS. HX FRACTURE RIBS AND T6, T7 6 YEARS AGO AFTER FALL FROM LADDER. 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 both cataracts removed- suboptical implant in;. rt middle lobe lung remove. right foot 03/17/2023 Significant Family History: no pertinent family hx - Social History Smoking Status: Never smoker Exposure to second hand smoke: No Alcohol: None Drug Use: none - Social Determinants of Health Will the patient participate in the screening: Yes Do you worry about a steady place to live?: No Do you have any problems with any of the following?: No known problems In the past 12 months,have you had to go without utilities?: No Have you or anyone in your house had to go without enough: No Transportation Issues: No Has anyone in your support network made you feel unsafe?: No - Physical Exam Vital Signs: Vital Signs - 24 hr Temp Pulse BP BP Pulse Ox 07/23/24 20:36 98 07/23/24 20:30 70 170/97 97 07/23/24 20:00 71 188/112 99 07/23/24 19:30 68 191/113 99 07/23/24 19:00 164/101 97 07/23/24 18:30 170/106 07/23/24 18:00 161/95 94 L 07/23/24 17:30 177/104 07/23/24 17:00 183/108 97 07/23/24 16:30 166/97 98 07/23/24 16:19 179/98 07/23/24 16:13 97.3 F 71 179/98 98 General Appearance: no apparent distress Neurologic Exam: alert, oriented x 3 Ears, Nose, Throat Exam: dry mucous membranes Neck Exam: supple Respiratory Exam: No respiratory distress Cardiovascular Exam: regular rate/rhythm Gastrointestinal/Abdomen Exam: soft Extremity Exam: parasthesia, No pedal edema Skin Exam: normal color, No rash Results - Labs Lab/Micro Results: Lab Results-Last 24 Hours 07/23/24 07/23/24 07/23/24 Range/Units 17:05 17:16 17:16 WBC 8.7 (4.23-9.07) x10^3/uL RBC 4.77 (4.63-6.08) x10^6/uL Hgb 14.2 (13.7-17.5) g/dL Hct 42.0 (40.1-51.0) % MCV 88.1 (79.0-92.2) fL MCH 29.8 (25.7-32.2) pg MCHC 33.8 (32.3-36.5) g/dL RDW 13.1 (11.6-14.4) % Plt Count 283 (163-337) x10^3/uL MPV 9.3 L (9.4-12.4) fL Gran % 57.8 (34.0-67.9) % Immature Gran % (Auto) 0.2 (0.001-0.429) % Nucleat RBC Rel Count 0.0 (0.00-0.2) % Eos # (Auto) 0.30 (0.04-0.54) x10^3/uL Immature Gran # (Auto) 0.02 (0.001-0.031) x10^3u/L Absolute Lymphs (auto) 2.51 (1.32-3.57) x10^3/uL Absolute Monos (auto) 0.79 (0.30-0.82) x10^3/uL Absolute Nucleated RBC 0.00 (0.00-0.012) x10^3u/L Lymphocytes % 28.9 (21.8-53.1) % Monocytes % 9.1 (5.3-12.2) % Eosinophils % 3.5 (0.8-7.0) % Basophils % 0.5 (0.2-1.2) % Absolute Granulocytes 5.03 (1.78-5.38) x10^3/uL Basophils # 0.04 (0.01-0.08) x10^3/uL Sodium 138 (135-145) mmol/L Potassium 3.4 L (3.5-5.1) mmol/L Chloride 101 (98-107) mmol/L Carbon Dioxide 29 (22-30) mmol/L Anion Gap 11.5 (5-15) MEQ/L BUN 21 H (9-20) mg/dL Creatinine 1.29 H (0.66-1.25) mg/dL Estimated GFR 63.5 ML/MIN Glucose 135 H (74-106) mg/dL Lactic Acid 1.2 (0.4-2.0) Calcium 9.5 (8.4-10.2) mg/dL Total Bilirubin 0.50 (0.2-1.3) mg/dL AST 34 (17-59) U/L ALT 25 (0-50) U/L Alkaline Phosphatase 143 H (38-126) U/L Serum Total Protein 7.5 (6.3-8.2) g/dL Albumin 4.5 (3.5-5.0) g/dL - Radiology Impressions Radiology Exams & Impressions: Radiology Procedures Category Date Time Status FOOT (MINIMUM 3 VIEWS) Stat Exams 07/23/24 16:47 Taken Assessment/Plan (1) Foot fracture, left Current Visit: Yes Status: Acute Qualifiers: Encounter type: initial encounter Fracture type: closed Qualified Code(s): S92.902A - Unspecified fracture of left foot, initial encounter for closed fracture Assessment & Plan: Multiple toe fractures likely from diabetic neuropathy with infection 1. Admit to hospital 2. Broad spectrum antibiotics 3. Podiatry consult - ? need for amputations 4. Follow up cultures 5. Pain control Code(s): S92.902A - UNSP FRACTURE OF LEFT FOOT, INIT ENCNTR FOR CLOSED FRACTURE (2) Acute kidney injury Current Visit: Yes Status: Acute Assessment & Plan: Likely from prerenal azotemia in setting of infection while on diuretics 1. Trial of IVFs 2. Hold diuretics 3. Check UPC, FENa 4. Follow I/Os 5. Watch electrolytes, creatinine closely Code(s): N17.9 - ACUTE KIDNEY FAILURE, UNSPECIFIED (3) Diabetes mellitus with neuropathy Current Visit: Yes Status: Acute Qualifiers: Diabetes mellitus type: type 2 Diabetes mellitus long term care phlebotomist insulin use: with [facility] use Qualified Code(s): E11.40 - Type 2 diabetes mellitus with diabetic neuropathy, unspecified; Z79.4 - joint terminal attack controller (current) use of insulin Assessment & Plan: Diabetes with neuropathy contributing to foot fractures/infection 1. ADA diet 2. FSBS qACHS with SSI 3. Continue long acting insulin 4. Monitor HbA1c Code(s): E11.40 - TYPE 2 DIABETES MELLITUS WITH DIABETIC NEUROPATHY, UNSP (4) History of COPD Current Visit: No Status: Acute Assessment & Plan: Appears to be stable from a respiratory standpoint 1. Duonebs 2. Supplemental oxygen 3. Monitor O2 sats Code(s): Z87.09 - PERSONAL HISTORY OF OTHER DISEASES OF THE RESPIRATORY SYSTEM Telemedicine Encounter - Telemedicine Encounter Telemedicine Encounter: "The entirety of this encounter was performed via Telemedicine" This visit was performed using real-time audio and video connection between my location and thepatients locationwith the assistance of a surrogateat the patients location. Written or verbal consent was obtained from the patient/guardian to perform this visit [facility] technology. Any patient questions regarding the telemedicine interaction were answered.
[2024-07-23] MEDS ORDERED: Zofran 4 MG/2 ML VIAL IV PRN (21:28)
[2024-07-23] MEDS ORDERED: TYLENOL 325 MG PO PRN (21:28)
[2024-07-23] MEDS ORDERED: HUMALOG SQ PRN (21:28)
[2024-07-23] MEDS ORDERED: Lopressor 25MG Tab PO SCH (22:00)
[2024-07-23] MEDS: VANCOMYCIN 1 GRAM/200 ML BAG 1 GM/200 ML PIGGYBACK IV SCH (22:08)
[2024-07-23] MEDS ORDERED: NON-FORMULARY ITEM (Insulin Glargine,Hum.Rec.Anlog [Basaglar Kwikpen U-100] 30 UNIT) SQ SCH (22:19)
[2024-07-23] MEDS: HEPARIN 5000 UNITS/0.5 ML (HIGH RISK MED) SQ SCH (22:30)
[2024-07-23] MEDS: NEURONTIN PO SCH (22:31)
[2024-07-23] MEDS: Lopressor 25MG Tab PO SCH (22:31)
[2024-07-23] MEDS: Lantus Insulin SQ SCH (22:31)
[2024-07-23] MEDS: PIPERACILLIN/TAZOBACTAM 3.375 GM in Sodium Chloride 100ML MINI-BAG PLUS 100 ML IV SCH (22:31)
[2024-07-23] MEDS: NORVASC 5 MG PO SCH (22:31)
[2024-07-23] MEDS: NON-FORMULARY ITEM (Insulin Glargine,Hum.Rec.Anlog [Basaglar Kwikpen U-100] 100 UNIT/ML In SQ SCH (22:39)
[2024-07-23] MEDS: Sodium Chloride 0.9% 1000 ML 1,000 ML IV SCH (22:41)
--- NOTE | 2024-07-23 23:15 | XRAY ---
Indication: Pain. No known injury. Osteomyelitis. Comparison: None 3 nonweightbearing views left foot demonstrates mild varus angulated acute fractures mid to distal shafts 4th/5th metatarsals with soft tissue swelling. 4th metatarsal fracture appears mildly displaced and comminuted. Elsewhere osteopenia, old 2nd metatarsal fracture, mild 1st MTP degenerative changes, and tiny plantar heel spur.
[2024-07-24] MEDS ORDERED: DUONEB 0.5-3 MG/3 ml Neb IH ONE ×2 (00:14→05:36)
[2024-07-24] MEDS: DUONEB 0.5-3 MG/3 ml Neb IH SCH (00:15)
[2024-07-24] MEDS ORDERED: PIPERACILLIN/TAZOBACTAM IV ONE (04:56)
[2024-07-24] MEDS ORDERED: Sodium Chloride 100ML MINI-BAG PLUS 100 ML IV ONE (04:57)
[2024-07-24] MEDS ORDERED: DUONEB 0.5-3 MG/3 ml Neb IH PRN (05:57)
[2024-07-24 06:24] LABS: Absolute Neutrophil Ct (ANC) 4.17 x10^3/uL (1.78-5.38); BASOPHIL % 0.8 % (0.2-1.2); Basophil (Absolute #) 0.06 x10^3/uL (0.01-0.08); Eosinophil % 3.2 % (0.8-7.0); Eosinophil (Absolute #) 0.25 x10^3/uL (0.04-0.54); Hematocrit 39.3 % (40.1-51.0); IMMATURE GRAN # 0.02 x10^3u/L (0.001-0.031); IMMATURE GRAN % 0.3 % (0.001-0.429); Lymphocyte (Absolute #) 2.53 x10^3/uL (1.32-3.57); Lymphocytes % 32.7 % (21.8-53.1); Mean Cell Volume 88.3 fL (79.0-92.2); Mean Corpuscular Hemoglobin 29.2 pg (25.7-32.2); Mean Corpuscular Hgb Concent. 33.1 g/dL (32.3-36.5); Mean Platelet Volume 9.6 fL (9.4-12.4); Monocyte (Absolute #) 0.71 x10^3/uL (0.30-0.82); Monocytes % 9.2 % (5.3-12.2); Neutrophil % 53.8 % (34.0-67.9); Platelet Count 272 x10^3/uL (163-337); Red Blood Count 4.45 x10^6/uL (4.63-6.08); Red Cell Distribution Width 13.3 % (11.6-14.4); White Blood Count 7.7 x10^3/uL (4.23-9.07)
[2024-07-24 06:52] LABS: ALBUMIN 3.7 g/dL (3.5-5.0); ANION GAP 10.4 MEQ/L (5-15); BILIRUBIN,TOTAL 0.6 mg/dL (0.2-1.3); Calcium 8.6 mg/dL (8.4-10.2); Creatinine 1 1.2 mg/dL (0.66-1.25); EST GLOMERULAR FILTRATION RATE 69.2 ML/MIN; PREALBUMIN 13.69 mg/dL (17.6-36.0); Potassium 3.1 mmol/L (3.5-5.1); Total Protein 6.4 g/dL (6.3-8.2)
[2024-07-24] MEDS ORDERED: MORPHINE SULFATE 2 MG INJ IV PRN (08:27)
[2024-07-24] MEDS: POTASSIUM CHLORIDE 20 mEq IN WATER 100ML 100 ML IV SCH (09:45)
[2024-07-24] MEDS: JARDIANCE PO SCH (09:48)
[2024-07-24] MEDS: VANCOMYCIN 1.25 GM/250 ML BAG 1.25 GM/250 ML PIGGYBACK IV SCH (09:51)
--- NOTE | 2024-07-24 12:59 | PCM.NOTE ---
Date and Time: 07/24/24 1254 Subjective Assessment: 07/24/24 Mr. MOREJON is a 58 year old male with a past medical history significant for hypertension, diabetes with neuropathy, lung cancer, and previous diabetic R foot infection. He presented to the hospital on 07/23/24 with concern that he may have stepped on something with his L foot and now doesn't feel/sound right when he walks. This happened last year with his R foot as he cannot feel much due to his neuropathy. X-ray L foot appears to show fractures of the fourth/fifth toes with displacement and possible third toe fracture too. ER physician discussed with podiatry, who has recommended admission for IV antibiotics. He is seen via telehealth, awake/alert. Left lower extremity wrapped. Podiatry wants MRI tomorrow. Heparin held for possible surgery. Will make pt NPO at midnight. K+ 3.1 and replaced. Continue Zosyn and IVF. He denies CP, SOB, abd. pain, N/V/D, fever, chills. - Review of Systems Constitutional: No Fever, No Chills Eyes: No Symptoms Ears, Nose, & Throat: No Symptoms Respiratory: No Cough, No Short Of Breath Cardiac: No Chest Pain, No Edema, No Syncope Abdominal/Gastrointestinal: No Abdominal Pain, No Nausea, No Vomiting, No Diarrhea Genitourinary Symptoms: No Dysuria Musculoskeletal: No Back Pain, No Neck Pain Skin: Cellulitis, Skin Lesions (LLE), Other, No Rash Neurological: No Dizziness, No Focal Weakness, No Sensory Changes Psychological: No Symptoms Endocrine: No Symptoms Hematologic/Lymphatic: No Symptoms Immunological/Allergic: No Symptoms Objective Exam General Appearance: no apparent distress, alert Neurologic Exam: alert, oriented x 3, cooperative, normal mood/affect, nml cerebellar function, sensation nml, No motor deficits Skin Exam: normal color, warm, dry Wound Assessment: Skin/Wound Assessment Wound/Incision Assessment Start: 07/23/24 21:53 Text: Status: Active Freq: Q6H Protocol: Document 07/24/24 08:00 RB (Rec: 07/24/24 08:56 RB [id number]) Wound/Incision Assessment Left Foot Wound Assessment Admission Wound Stage Non Pressure Wound Dressing Status Dry & Intact Comment splint intact to left lower leg- REMAINS TRUE Wound Photo Photo Taken No Eye Exam: PERRL, EOMI, eyes nml inspection Ears, Nose, Throat Exam: normal ENT inspection, pharynx normal, moist mucous membranes Neck Exam: normal inspection, non-tender, supple, full range of motion Respiratory Exam: normal breath sounds, lungs clear, No respiratory distress Cardiovascular Exam: regular rate/rhythm, normal heart sounds Gastrointestinal/Abdomen Exam: soft, No tenderness, No mass Extremity Exam: normal inspection, normal range of motion, inflammation (LLE- wrapped- see pics in chart), swelling, tenderness Back Exam: normal inspection, normal range of motion, No CVA tenderness, No vertebral tenderness Male Genitalia Exam: deferred Rectal Exam: deferred Objective Data Vital Signs: Vital Signs - 24 hr Temp Pulse Resp BP BP Pulse Ox 07/24/24 11:53 97.8 F 54 L 16 154/82 96 07/24/24 07:07 97.7 F 65 16 165/91 97 07/24/24 05:10 55 L 16 97 07/24/24 04:00 97.0 F 55 L 18 125/77 96 07/24/24 00:15 55 L 16 96 07/24/24 00:12 98 07/23/24 21:27 97.5 F 98 H 18 199/106 98 07/23/24 20:30 70 170/97 97 07/23/24 20:00 71 188/112 99 07/23/24 19:30 68 191/113 99 07/23/24 19:00 164/101 97 07/23/24 18:30 170/106 07/23/24 18:00 161/95 94 L 07/23/24 17:30 177/104 07/23/24 17:00 183/108 97 07/23/24 16:30 166/97 98 07/23/24 16:19 179/98 07/23/24 16:13 97.3 F 71 179/98 98 Pain Assessment - Last Documented Pain Intensity 0 Intake and Output: Intake & Output 07/22/24 07/23/24 07/24/24 07/25/24 11:59 11:59 11:59 11:59 Intake Total 1813 Output Total 750 Balance 1063 Weight 91.8 kg Lab Results: Lab Results-Last 24 Hours 07/23/24 07/23/24 07/23/24 Range/Units 17:05 17:16 17:16 WBC 8.7 (4.23-9.07) x10^3/uL RBC 4.77 (4.63-6.08) x10^6/uL Hgb 14.2 (13.7-17.5) g/dL Hct 42.0 (40.1-51.0) % MCV 88.1 (79.0-92.2) fL MCH 29.8 (25.7-32.2) pg MCHC 33.8 (32.3-36.5) g/dL RDW 13.1 (11.6-14.4) % Plt Count 283 (163-337) x10^3/uL MPV 9.3 L (9.4-12.4) fL Gran % 57.8 (34.0-67.9) % Immature Gran % (Auto) 0.2 (0.001-0.429) % Nucleat RBC Rel Count 0.0 (0.00-0.2) % Eos # (Auto) 0.30 (0.04-0.54) x10^3/uL Immature Gran # (Auto) 0.02 (0.001-0.031) x10^3u/L Absolute Lymphs (auto) 2.51 (1.32-3.57) x10^3/uL Absolute Monos (auto) 0.79 (0.30-0.82) x10^3/uL Absolute Nucleated RBC 0.00 (0.00-0.012) x10^3u/L Lymphocytes % 28.9 (21.8-53.1) % Monocytes % 9.1 (5.3-12.2) % Eosinophils % 3.5 (0.8-7.0) % Basophils % 0.5 (0.2-1.2) % Absolute Granulocytes 5.03 (1.78-5.38) x10^3/uL Basophils # 0.04 (0.01-0.08) x10^3/uL Sodium 138 (135-145) mmol/L Potassium 3.4 L (3.5-5.1) mmol/L Chloride 101 (98-107) mmol/L Carbon Dioxide 29 (22-30) mmol/L Anion Gap 11.5 (5-15) MEQ/L BUN 21 H (9-20) mg/dL Creatinine 1.29 H (0.66-1.25) mg/dL Estimated GFR 63.5 ML/MIN Glucose 135 H (74-106) mg/dL POC Glucometer (74 to 106) mg/dL Hemoglobin A1c (4.5-6.0) % Lactic Acid 1.2 (0.4-2.0) Calcium 9.5 (8.4-10.2) mg/dL Total Bilirubin 0.50 (0.2-1.3) mg/dL AST 34 (17-59) U/L ALT 25 (0-50) U/L Alkaline Phosphatase 143 H (38-126) U/L Serum Total Protein 7.5 (6.3-8.2) g/dL Albumin 4.5 (3.5-5.0) g/dL Prealbumin (17.6-36.0) mg/dL 07/23/24 07/24/24 07/24/24 Range/Units 22:09 06:24 06:24 WBC 7.7 (4.23-9.07) x10^3/uL RBC 4.45 L (4.63-6.08) x10^6/uL Hgb 13.0 L (13.7-17.5) g/dL Hct 39.3 L (40.1-51.0) % MCV 88.3 (79.0-92.2) fL MCH 29.2 (25.7-32.2) pg MCHC 33.1 (32.3-36.5) g/dL RDW 13.3 (11.6-14.4) % Plt Count 272 (163-337) x10^3/uL MPV 9.6 (9.4-12.4) fL Gran % 53.8 (34.0-67.9) % Immature Gran % (Auto) 0.3 (0.001-0.429) % Nucleat RBC Rel Count 0.0 (0.00-0.2) % Eos # (Auto) 0.25 (0.04-0.54) x10^3/uL Immature Gran # (Auto) 0.02 (0.001-0.031) x10^3u/L Absolute Lymphs (auto) 2.53 (1.32-3.57) x10^3/uL Absolute Monos (auto) 0.71 (0.30-0.82) x10^3/uL Absolute Nucleated RBC 0.00 (0.00-0.012) x10^3u/L Lymphocytes % 32.7 (21.8-53.1) % Monocytes % 9.2 (5.3-12.2) % Eosinophils % 3.2 (0.8-7.0) % Basophils % 0.8 (0.2-1.2) % Absolute Granulocytes 4.17 (1.78-5.38) x10^3/uL Basophils # 0.06 (0.01-0.08) x10^3/uL Sodium 140 (135-145) mmol/L Potassium 3.1 L (3.5-5.1) mmol/L Chloride 107 (98-107) mmol/L Carbon Dioxide 25 (22-30) mmol/L Anion Gap 10.4 (5-15) MEQ/L BUN 18 (9-20) mg/dL Creatinine 1.20 (0.66-1.25) mg/dL Estimated GFR 69.2 ML/MIN Glucose 111 H (74-106) mg/dL POC Glucometer 102 (74 to 106) mg/dL Hemoglobin A1c (4.5-6.0) % Lactic Acid (0.4-2.0) Calcium 8.6 (8.4-10.2) mg/dL Total Bilirubin 0.60 (0.2-1.3) mg/dL AST 43 (17-59) U/L ALT 26 (0-50) U/L Alkaline Phosphatase 127 H (38-126) U/L Serum Total Protein 6.4 (6.3-8.2) g/dL Albumin 3.7 (3.5-5.0) g/dL Prealbumin 13.69 L (17.6-36.0) mg/dL 07/24/24 07/24/24 07/24/24 Range/Units 06:24 07:14 11:44 WBC (4.23-9.07) x10^3/uL RBC (4.63-6.08) x10^6/uL Hgb (13.7-17.5) g/dL Hct (40.1-51.0) % MCV (79.0-92.2) fL MCH (25.7-32.2) pg MCHC (32.3-36.5) g/dL RDW (11.6-14.4) % Plt Count (163-337) x10^3/uL MPV (9.4-12.4) fL Gran % (34.0-67.9) % Immature Gran % (Auto) (0.001-0.429) % Nucleat RBC Rel Count (0.00-0.2) % Eos # (Auto) (0.04-0.54) x10^3/uL Immature Gran # (Auto) (0.001-0.031) x10^3u/L Absolute Lymphs (auto) (1.32-3.57) x10^3/uL Absolute Monos (auto) (0.30-0.82) x10^3/uL Absolute Nucleated RBC (0.00-0.012) x10^3u/L Lymphocytes % (21.8-53.1) % Monocytes % (5.3-12.2) % Eosinophils % (0.8-7.0) % Basophils % (0.2-1.2) % Absolute Granulocytes (1.78-5.38) x10^3/uL Basophils # (0.01-0.08) x10^3/uL Sodium (135-145) mmol/L Potassium (3.5-5.1) mmol/L Chloride (98-107) mmol/L Carbon Dioxide (22-30) mmol/L Anion Gap (5-15) MEQ/L BUN (9-20) mg/dL Creatinine (0.66-1.25) mg/dL Estimated GFR ML/MIN Glucose (74-106) mg/dL POC Glucometer 99 96 (74 to 106) mg/dL Hemoglobin A1c 7.27 H (4.5-6.0) % Lactic Acid (0.4-2.0) Calcium (8.4-10.2) mg/dL Total Bilirubin (0.2-1.3) mg/dL AST (17-59) U/L ALT (0-50) U/L Alkaline Phosphatase (38-126) U/L Serum Total Protein (6.3-8.2) g/dL Albumin (3.5-5.0) g/dL Prealbumin (17.6-36.0) mg/dL Radiology Exams: Radiology Procedures Category Date Time Status FOOT (MINIMUM 3 VIEWS) Stat Exams 07/23/24 16:47 Completed MRI LOWER EXT W/O CONTRAST [MRI] Routine Exams 07/25/24 08:50 Ordered Assessment/Plan (1) Foot fracture, left Current Visit: Yes Status: Acute Qualifiers: Encounter type: initial encounter Fracture type: closed Qualified Code(s): S92.902A - Unspecified fracture of left foot, initial encounter for closed fracture Assessment & Plan: - podiatry consult - XR left foot: 3 nonweightbearing views left foot demonstrates mild varus angulated acute fractures mid to distal shafts 4th/5th metatarsals with soft tissue swelling. 4th metatarsal fracture appears mildly displaced and comminuted. Elsewhere osteopenia, old 2nd metatarsal fracture, mild 1st MTP degenerative changes, and tiny plantar heel spur. - Foot wrapped - Zosyn - IVF - CBC, CMP reviewed - MRI in AM - npo at midnight - Heparin held - Morphine PRN pain Code(s): S92.902A - UNSP FRACTURE OF LEFT FOOT, INIT ENCNTR FOR CLOSED FRACTURE (2) Foot infection Current Visit: Yes Status: Acute Assessment & Plan: - Zosyn - IVF - CBC, CMP reviewed - MRI in AM Code(s): L08.9 - LOCAL INFECTION OF THE SKIN AND SUBCUTANEOUS TISSUE, UNSP (3) Hypokalemia Current Visit: Yes Status: Acute Assessment & Plan: - K+ 3.1 replaced- trend - Tele Code(s): E87.6 - HYPOKALEMIA (4) Diabetes mellitus with neuropathy Current Visit: Yes Status: Chronic Qualifiers: Diabetes mellitus type: type 2 Diabetes mellitus residential insulin use: with residential use Qualified Code(s): E11.40 - Type 2 diabetes mellitus with diabetic neuropathy, unspecified; Z79.4 - skilled nursing (current) use of insulin Assessment & Plan: - accuchecks ac/hs - Continue home dosing of insulin - S/S humalog - A1C 7.27- uncontrolled - Continue gabapentin for neuropathy - Carb consistent diet Code(s): E11.40 - TYPE 2 DIABETES MELLITUS WITH DIABETIC NEUROPATHY, UNSP (5) History of COPD Current Visit: No Status: Chronic Assessment & Plan: - Continue home meds - In in acute exacerbation - room air 96% Code(s): Z87.09 - PERSONAL HISTORY OF OTHER DISEASES OF THE RESPIRATORY SYSTEM (6) Hypertension Current Visit: No Status: Chronic Qualifiers: Hypertension type: primary hypertension Qualified Code(s): I10 - Essential (primary) hypertension Assessment & Plan: -BP controlled - Continue home meds Code(s): I10 - ESSENTIAL (PRIMARY) HYPERTENSION (7) Acute kidney injury Current Visit: Yes Status: Resolved Assessment & Plan: - resolved with IVF VTE: Heparin- held PPI: Protonix Next of KIN: Spouse Pari Morejon, D/C plan: 2-3 days Code status: Full Code(s): N17.9 - ACUTE KIDNEY FAILURE, UNSPECIFIED
[2024-07-24] MEDS ORDERED: PROVENTIL 2.5 MG/3 ML NEB IH PRN (13:01)
[2024-07-24] MEDS ORDERED: VENTOLIN COMMON CANISTER IH PRN (13:01)
[2024-07-24] MEDS ORDERED: MEDICATION INTERVENTION MC SCH (13:30)
[2024-07-24 18:40] LABS: CREATININE,URINE RANDOM 32.2 MG/DL
[2024-07-24] MEDS: NORVASC 5 MG PO SCH (21:18)
[2024-07-24] MEDS: IMODIUM 2 MG PO SCH (21:18)
[2024-07-24] MEDS: Protonix 40MG Tablet PO SCH (21:19)
[2024-07-24] MEDS ORDERED: NON-FORMULARY ITEM (Esomeprazole Magnesium [Nexium] 40 MG Suspdr.Pkt) PO SCH (22:00)
[2024-07-25 04:55] LABS: Hematocrit 41.2 % (40.1-51.0); Hemoglobin 13.6 g/dL (13.7-17.5); Mean Cell Volume 89.4 fL (79.0-92.2); Mean Corpuscular Hemoglobin 29.5 pg (25.7-32.2); Mean Platelet Volume 9.1 fL (9.4-12.4); Platelet Count 264 x10^3/uL (163-337); Red Blood Count 4.61 x10^6/uL (4.63-6.08); Red Cell Distribution Width 13.4 % (11.6-14.4); White Blood Count 8.1 x10^3/uL (4.23-9.07)
[2024-07-25 05:26] LABS: ALBUMIN 3.7 g/dL (3.5-5.0); ANION GAP 8.4 MEQ/L (5-15); BILIRUBIN,TOTAL 0.4 mg/dL (0.2-1.3); Calcium 8.9 mg/dL (8.4-10.2); Creatinine 1 1.42 mg/dL (0.66-1.25); EST GLOMERULAR FILTRATION RATE 56.6 ML/MIN; MAGNESIUM 2.2 mg/dL (1.6-2.3); Potassium 3.7 mmol/L (3.5-5.1); Total Protein 6.3 g/dL (6.3-8.2)
--- NOTE | 2024-07-25 05:28 | PCM.NOTE ---
Date and Time: 07/25/24 0525 Subjective Assessment: HPI: Mr. MOREJON is a 58 year old male with a past medical history significant for hypertension, diabetes with neuropathy, lung cancer, and previous diabetic R foot infection admitted 07/24/24 with left diabetic foot infection and fractures of the left 4th and 5th metatarsals. Initial lab findings with FARHAD and hypokalemia. Podiatry consulted. Plan for MRI 07/25/24 with possible surgical intervention pending results. IP treatment with Zosyn. Left lower extremity wrapped. 07/25: Met with patient bedside. Denies pain due to neuropathy. No complaints this morning. Plan for MRI today and surgical intervention (possible amputation of the third digit - open) pending results. Patient will need antiobiotics following per podiatry for at least two weeks. Denies fever,cough, sob, cp, abdominal pain, LA, dizziness, N/V/D. - Review of Systems Constitutional: No Symptoms Eyes: No Symptoms Ears, Nose, & Throat: No Symptoms Respiratory: No Symptoms Cardiac: No Symptoms Abdominal/Gastrointestinal: No Symptoms Genitourinary Symptoms: No Symptoms Musculoskeletal: No Symptoms Skin: No Symptoms Neurological: No Symptoms Psychological: No Symptoms Endocrine: No Symptoms Hematologic/Lymphatic: No Symptoms Immunological/Allergic: No Symptoms Objective Exam General Appearance: no apparent distress Neurologic Exam: alert, oriented x 3, cooperative Skin Exam: normal color, other (open wound to left third digit) Wound Assessment: Skin/Wound Assessment Wound/Incision Assessment Start: 07/23/24 21:53 Text: Status: Active Freq: Q6H Protocol: Document 07/25/24 02:00 CECILIA (Rec: 07/25/24 02:44 MS [id number]) Wound/Incision Assessment Left Foot Wound Assessment Shift Assessment Wound Stage Non Pressure Wound Dressing Status Dry & Intact Comment wound to left third toe - splint in place - HARMONY wound - remains true Wound Photo Photo Taken No Eye Exam: PERRL Ears, Nose, Throat Exam: normal ENT inspection Neck Exam: normal inspection Respiratory Exam: normal breath sounds, lungs clear Cardiovascular Exam: regular rate/rhythm, normal heart sounds Gastrointestinal/Abdomen Exam: soft, normal bowel sounds Extremity Exam: normal inspection Back Exam: normal inspection Male Genitalia Exam: deferred Rectal Exam: deferred Objective Data Vital Signs: Vital Signs - 24 hr Temp Pulse Resp BP Pulse Ox 07/25/24 03:42 98.2 F 51 L 18 114/67 97 07/25/24 00:00 96.9 F 54 L 16 156/84 95 07/24/24 19:30 97.2 F 67 17 166/91 96 07/24/24 19:09 81 16 96 07/24/24 16:00 97.8 F 58 L 16 156/85 96 07/24/24 11:53 97.8 F 54 L 16 154/82 96 07/24/24 07:07 97.7 F 65 16 165/91 97 Pain Assessment - Last Documented Pain Intensity 0 Intake and Output: Intake & Output 07/22/24 07/23/24 07/24/24 07/25/24 11:59 11:59 11:59 11:59 Intake Total 1813 4041 Output Total 750 3850 Balance 1063 191 Weight 91.8 kg Lab Results: Lab Results-Last 24 Hours 07/23/24 07/24/24 07/24/24 Range/Units 18:24 06:24 06:24 WBC 7.7 (4.23-9.07) x10^3/uL RBC 4.45 L (4.63-6.08) x10^6/uL Hgb 13.0 L (13.7-17.5) g/dL Hct 39.3 L (40.1-51.0) % MCV 88.3 (79.0-92.2) fL MCH 29.2 (25.7-32.2) pg MCHC 33.1 (32.3-36.5) g/dL RDW 13.3 (11.6-14.4) % Plt Count 272 (163-337) x10^3/uL MPV 9.6 (9.4-12.4) fL Gran % 53.8 (34.0-67.9) % Immature Gran % (Auto) 0.3 (0.001-0.429) % Nucleat RBC Rel Count 0.0 (0.00-0.2) % Eos # (Auto) 0.25 (0.04-0.54) x10^3/uL Immature Gran # (Auto) 0.02 (0.001-0.031) x10^3u/L Absolute Lymphs (auto) 2.53 (1.32-3.57) x10^3/uL Absolute Monos (auto) 0.71 (0.30-0.82) x10^3/uL Absolute Nucleated RBC 0.00 (0.00-0.012) x10^3u/L Lymphocytes % 32.7 (21.8-53.1) % Monocytes % 9.2 (5.3-12.2) % Eosinophils % 3.2 (0.8-7.0) % Basophils % 0.8 (0.2-1.2) % Absolute Granulocytes 4.17 (1.78-5.38) x10^3/uL Basophils # 0.06 (0.01-0.08) x10^3/uL Sodium 140 (135-145) mmol/L Potassium 3.1 L (3.5-5.1) mmol/L Chloride 107 (98-107) mmol/L Carbon Dioxide 25 (22-30) mmol/L Anion Gap 10.4 (5-15) MEQ/L BUN 18 (9-20) mg/dL Creatinine 1.20 (0.66-1.25) mg/dL Estimated GFR 69.2 ML/MIN Glucose 111 H (74-106) mg/dL POC Glucometer (74 to 106) mg/dL Hemoglobin A1c (4.5-6.0) % Calcium 8.6 (8.4-10.2) mg/dL Total Bilirubin 0.60 (0.2-1.3) mg/dL AST 43 (17-59) U/L ALT 26 (0-50) U/L Alkaline Phosphatase 127 H (38-126) U/L Serum Total Protein 6.4 (6.3-8.2) g/dL Albumin 3.7 (3.5-5.0) g/dL Prealbumin 13.69 L (17.6-36.0) mg/dL Ur Random Creatinine 32.2 MG/DL U Random Total Protein 13 H (0-12) mg/dL Urine Sodium 152 H (30-90) mmol/L 07/24/24 07/24/24 07/24/24 Range/Units 06:24 07:14 11:44 WBC (4.23-9.07) x10^3/uL RBC (4.63-6.08) x10^6/uL Hgb (13.7-17.5) g/dL Hct (40.1-51.0) % MCV (79.0-92.2) fL MCH (25.7-32.2) pg MCHC (32.3-36.5) g/dL RDW (11.6-14.4) % Plt Count (163-337) x10^3/uL MPV (9.4-12.4) fL Gran % (34.0-67.9) % Immature Gran % (Auto) (0.001-0.429) % Nucleat RBC Rel Count (0.00-0.2) % Eos # (Auto) (0.04-0.54) x10^3/uL Immature Gran # (Auto) (0.001-0.031) x10^3u/L Absolute Lymphs (auto) (1.32-3.57) x10^3/uL Absolute Monos (auto) (0.30-0.82) x10^3/uL Absolute Nucleated RBC (0.00-0.012) x10^3u/L Lymphocytes % (21.8-53.1) % Monocytes % (5.3-12.2) % Eosinophils % (0.8-7.0) % Basophils % (0.2-1.2) % Absolute Granulocytes (1.78-5.38) x10^3/uL Basophils # (0.01-0.08) x10^3/uL Sodium (135-145) mmol/L Potassium (3.5-5.1) mmol/L Chloride (98-107) mmol/L Carbon Dioxide (22-30) mmol/L Anion Gap (5-15) MEQ/L BUN (9-20) mg/dL Creatinine (0.66-1.25) mg/dL Estimated GFR ML/MIN Glucose (74-106) mg/dL POC Glucometer 99 96 (74 to 106) mg/dL Hemoglobin A1c 7.27 H (4.5-6.0) % Calcium (8.4-10.2) mg/dL Total Bilirubin (0.2-1.3) mg/dL AST (17-59) U/L ALT (0-50) U/L Alkaline Phosphatase (38-126) U/L Serum Total Protein (6.3-8.2) g/dL Albumin (3.5-5.0) g/dL Prealbumin (17.6-36.0) mg/dL Ur Random Creatinine MG/DL U Random Total Protein (0-12) mg/dL Urine Sodium (30-90) mmol/L 07/24/24 07/24/24 07/24/24 Range/Units 14:20 16:31 21:05 WBC (4.23-9.07) x10^3/uL RBC (4.63-6.08) x10^6/uL Hgb (13.7-17.5) g/dL Hct (40.1-51.0) % MCV (79.0-92.2) fL MCH (25.7-32.2) pg MCHC (32.3-36.5) g/dL RDW (11.6-14.4) % Plt Count (163-337) x10^3/uL MPV (9.4-12.4) fL Gran % (34.0-67.9) % Immature Gran % (Auto) (0.001-0.429) % Nucleat RBC Rel Count (0.00-0.2) % Eos # (Auto) (0.04-0.54) x10^3/uL Immature Gran # (Auto) (0.001-0.031) x10^3u/L Absolute Lymphs (auto) (1.32-3.57) x10^3/uL Absolute Monos (auto) (0.30-0.82) x10^3/uL Absolute Nucleated RBC (0.00-0.012) x10^3u/L Lymphocytes % (21.8-53.1) % Monocytes % (5.3-12.2) % Eosinophils % (0.8-7.0) % Basophils % (0.2-1.2) % Absolute Granulocytes (1.78-5.38) x10^3/uL Basophils # (0.01-0.08) x10^3/uL Sodium (135-145) mmol/L Potassium 4.1 D (3.5-5.1) mmol/L Chloride (98-107) mmol/L Carbon Dioxide (22-30) mmol/L Anion Gap (5-15) MEQ/L BUN (9-20) mg/dL Creatinine (0.66-1.25) mg/dL Estimated GFR ML/MIN Glucose (74-106) mg/dL POC Glucometer 102 206 H (74 to 106) mg/dL Hemoglobin A1c (4.5-6.0) % Calcium (8.4-10.2) mg/dL Total Bilirubin (0.2-1.3) mg/dL AST (17-59) U/L ALT (0-50) U/L Alkaline Phosphatase (38-126) U/L Serum Total Protein (6.3-8.2) g/dL Albumin (3.5-5.0) g/dL Prealbumin (17.6-36.0) mg/dL Ur Random Creatinine MG/DL U Random Total Protein (0-12) mg/dL Urine Sodium (30-90) mmol/L 07/25/24 Range/Units 04:52 WBC 8.1 (4.23-9.07) x10^3/uL RBC 4.61 L (4.63-6.08) x10^6/uL Hgb 13.6 L (13.7-17.5) g/dL Hct 41.2 (40.1-51.0) % MCV 89.4 (79.0-92.2) fL MCH 29.5 (25.7-32.2) pg MCHC 33.0 (32.3-36.5) g/dL RDW 13.4 (11.6-14.4) % Plt Count 264 (163-337) x10^3/uL MPV 9.1 L (9.4-12.4) fL Gran % (34.0-67.9) % Immature Gran % (Auto) (0.001-0.429) % Nucleat RBC Rel Count (0.00-0.2) % Eos # (Auto) (0.04-0.54) x10^3/uL Immature Gran # (Auto) (0.001-0.031) x10^3u/L Absolute Lymphs (auto) (1.32-3.57) x10^3/uL Absolute Monos (auto) (0.30-0.82) x10^3/uL Absolute Nucleated RBC (0.00-0.012) x10^3u/L Lymphocytes % (21.8-53.1) % Monocytes % (5.3-12.2) % Eosinophils % (0.8-7.0) % Basophils % (0.2-1.2) % Absolute Granulocytes (1.78-5.38) x10^3/uL Basophils # (0.01-0.08) x10^3/uL Sodium (135-145) mmol/L Potassium (3.5-5.1) mmol/L Chloride (98-107) mmol/L Carbon Dioxide (22-30) mmol/L Anion Gap (5-15) MEQ/L BUN (9-20) mg/dL Creatinine (0.66-1.25) mg/dL Estimated GFR ML/MIN Glucose (74-106) mg/dL POC Glucometer (74 to 106) mg/dL Hemoglobin A1c (4.5-6.0) % Calcium (8.4-10.2) mg/dL Total Bilirubin (0.2-1.3) mg/dL AST (17-59) U/L ALT (0-50) U/L Alkaline Phosphatase (38-126) U/L Serum Total Protein (6.3-8.2) g/dL Albumin (3.5-5.0) g/dL Prealbumin (17.6-36.0) mg/dL Ur Random Creatinine MG/DL U Random Total Protein (0-12) mg/dL Urine Sodium (30-90) mmol/L Radiology Exams: Radiology Procedures Category Date Time Status FOOT (MINIMUM 3 VIEWS) Stat Exams 07/23/24 16:47 Completed MRI LOWER EXT W/O CONTRAST [MRI] Routine Exams 07/25/24 08:50 Ordered Assessment/Plan (1) Foot fracture, left Current Visit: Yes Status: Acute Qualifiers: Encounter type: initial encounter Fracture type: closed Qualified Code(s): S92.902A - Unspecified fracture of left foot, initial encounter for closed fracture Assessment & Plan: -Xray left foot reviewed demonstrating mild varus angulated acute fractures mid to distal shafts 4th/5th metatarsals with soft tissue swelling. 4th metatarsal fracture appears mildly displaced and comminuted -Podiatry consulted - agree with plan for percutaneous pinning of the fourth and fifth metatarsals and possible amputation of the third digit which will be left open and closed at a later date with at minimum 2 weeks of IV antibiotics pending MRI results -Continue zosyn -Left foot wrapped Code(s): S92.902A - UNSP FRACTURE OF LEFT FOOT, INIT ENCNTR FOR CLOSED FRACTURE (2) Osteomyelitis Current Visit: Yes Status: Acute Assessment & Plan: -Podiatry consult note reviewed - wound debrided 07/25/24 -agree with plan of possibility of amputation of the third digit -left open and 2 weeks of abx pending MRI results -MRI pending -NWB with knee scooter -culture of third digit pending -continue vanc/zosyn -CBC reviewed - WBC WNL at 8.1 - trend Code(s): M86.9 - OSTEOMYELITIS, UNSPECIFIED (3) Foot infection Current Visit: Yes Status: Acute Assessment & Plan: - Continue Zosyn - IVF -Podiatry following - agree with plan for MRI and treatment plan pending results - CBC, CMP reviewed -WBC WNL Code(s): L08.9 - LOCAL INFECTION OF THE SKIN AND SUBCUTANEOUS TISSUE, UNSP (4) Hypokalemia Current Visit: Yes Status: Acute Assessment & Plan: -Monitor on tele -replenish as needed on potassium protocol -CMP reviewed with potassium at 3.7 -resolved -monitor lytes daily Code(s): E87.6 - HYPOKALEMIA (5) Diabetes mellitus with neuropathy Current Visit: Yes Status: Chronic Qualifiers: Diabetes mellitus type: type 2 Diabetes mellitus snf insulin use: with exterminator helper use Qualified Code(s): E11.40 - Type 2 diabetes mellitus with diabetic neuropathy, unspecified; Z79.4 - USP (current) use of insulin Assessment & Plan: -ADA diet -accuchecks ACHS -A1C at 7.27 - advised good glycemic control for optimal wound healing -Continue gabapentin for neuropathy Code(s): E11.40 - TYPE 2 DIABETES MELLITUS WITH DIABETIC NEUROPATHY, UNSP (6) Acute kidney injury Current Visit: Yes Status: Resolved Assessment & Plan: -CMP reviewed, creat at 1.42> 1.20 baseline around 1.2 -Avoid nephrotoxic medications -Monitor renal/lytes daily -Hold Jardiance/torsemide -continue IVF Code(s): N17.9 - ACUTE KIDNEY FAILURE, UNSPECIFIED (7) History of COPD Current Visit: No Status: Chronic Assessment & Plan: - Continue home meds -at baseline RA Code(s): Z87.09 - PERSONAL HISTORY OF OTHER DISEASES OF THE RESPIRATORY SYSTEM (8) Hypertension Current Visit: No Status: Chronic Qualifiers: Hypertension type: primary hypertension Qualified Code(s): I10 - Essential (primary) hypertension Assessment & Plan: -BP controlled - Continue home meds VTE: Heparin- held PPI: Protonix Next of KIN: Spouse Pari Morejon, D/C plan: 2-3 days Code status: Full Code(s): I10 - ESSENTIAL (PRIMARY) HYPERTENSION
--- NOTE | 2024-07-25 07:56 | PCM.CONS ---
Podiatry HPI - Consult Date of Consultation Date: 07/25/24 Reason for Consult: Osteomyelitis left third digit, fracture fourth and fifth metatarsal, neuropathy Consulting Provider: BRYN HERRERA DPM - [facility] History of Present Illness: Albert is a very pleasant 58-year-old male with a significant past medical history of hypertension hyperlipidemia, diabetes mellitus uncontrolled to diabetic peripheral neuropathy and osteopenia. Patient had a very similar history to the right lower extremity approximately 1 year ago that was dealt with by Dr. Dave Singh where he fractured metatarsals on the right foot that required surgical intervention there was subsequent infection and the hardware needed to be removed as well as 6 weeks of IV antibiotics following the intervention with Dr. Alexander. At this time patient indicates he has a 2-1/2-week history of discomfort to the left foot secondary to suspected trauma however patient's neuropathy is extreme. He indicates that he stubbed this toe of the third digit while moving furniture and since then it has been red swollen with some appreciable drainage. Following this he noticed a crunching as he was walking to the left foot. Patient does have a significant history of osteopenia for which she is taking 400 mg of vitamin D daily. He currently denies any constitutional symptoms of infection. He denies any other pedal complaints at this time Medications & Allergies Home Medications: Home Medication List Albuterol 2.5 mg/3 ml Neb [Proventil 2.5 mg/3 ml Neb] 1 neb IH QID PRN PRN 10/15/16 [History Confirmed 07/23/24] Albuterol Sulfate [Proair Hfa] 2 puffs IH QIDPRN PRN 10/15/16 [History Confirmed 07/23/24] Amlodipine Besylate 5 mg [Norvasc 5 mg] 10 mg PO BID 11/12/20 [History Confirmed 07/23/24] Insulin Glargine,Hum.rec.anlog [Basaglar Kwikpen U-100] 30 unit SQ BID 11/13/20 [History Confirmed 07/23/24] Gabapentin [Neurontin ] 600 mg PO TID 02/17/21 [History Confirmed 07/23/24] Esomeprazole Magnesium [Nexium] 40 mg PO BID 12/26/21 [History Confirmed 07/23/24] Sildenafil Citrate [Viagra] 100 mg PO DAILY PRN PRN 12/26/21 [History Confirmed 07/23/24] Empagliflozin [Jardiance] 25 mg PO DAILY 03/30/22 [History Confirmed 07/23/24] Ergocalciferol (Vitamin D2) [Vitamin D2] 50,000 unit PO UD 03/30/22 [History Confirmed 07/23/24] Metoprolol Tartrate 25 mg [Lopressor 25MG Tab] 1.5 tab PO BID 03/30/22 [History Confirmed 07/23/24] Torsemide 20 mg [Demadex 20 mg] 20 mg PO DAILY 10/14/22 [History Confirmed 07/23/24] Nortriptyline HCl 25 mg PO DAILY 04/18/23 [History Confirmed 07/23/24] Loperamide HCl 2 mg [Imodium 2 mg] 4 mg PO BID 07/23/24 [History Confirmed 07/23/24] Allergies/Adverse Reactions: Allergies Allergy/AdvReac Type Severity Reaction Status Date / Time lisinopril Allergy Mild Anaphylactic Verified 07/23/24 16:23 Reaction doxycycline Allergy Verified 07/23/24 16:23 naproxen AdvReac Mild Rash Verified 07/23/24 16:23 - Past Medical History Past Medical History: Yes Neurological History: Peripheral Neuropathy ENT History: Cataracts Cardiac History: Hypertension Respiratory History: Asthma, COPD, Lung Cancer, Pneumonia, Other Endocrine Medical History: Diabetes Type II Musculoskelatal History: Fractures GI Medical History: GERD, Gallbladder Disease, Irritable Bowel, Other History: No Pertinent History Pyscho-Social History: No Pertinent History Male Reproductive Disorders: No Pertinent History Comment: HAS BEEN IN REMISSION FOR LUNG CANCER X 10 YEARS. HX FRACTURE RIBS AND T6, T7 6 YEARS AGO AFTER FALL FROM LADDER. 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 both cataracts removed- suboptical implant in;. rt middle lobe lung remove. right foot 03/17/2023 Significant Family History: no pertinent family hx - Social History Smoking Status: Never smoker Exposure to second hand smoke: No Alcohol: None Drug Use: none - Social Determinants of Health Will the patient participate in the screening: Yes Do you worry about a steady place to live?: No Do you have any problems with any of the following?: No known problems In the past 12 months,have you had to go without utilities?: No Have you or anyone in your house had to go without enough: No Transportation Issues: No Has anyone in your support network made you feel unsafe?: No Does the patient want assistance with any of the above?: No Physical Exam - General General Appearance: no apparent distress - Vascular Peripheral Pulses: Posterior tibialis: 2+, Dorsalis-Pedis: 2+ Capillary Refill Time: Immediate Hair Growth: Symmetrical and Bilateral Varicosities: Negtive Edema: None Edema Degree: 1+ Skin: Supple, not atrophic Skin Temperature: Warm to touch - Narrative Narrative Physical Exam: hypermobility to the lateral column of the left foot secondary to suspected fractures. There is a wound measuring 0.9 x 0.8 at the distal tip of the third digit secondary to contracture at the distal clavus. Wound debridement took place demonstrating a significant amount of purulent drainage and a positive probe to bone. Results - Labs Lab/Micro Results: Lab Results-Last 24 Hours 07/23/24 07/24/24 07/24/24 Range/Units 18:24 11:44 14:20 WBC (4.23-9.07) x10^3/uL RBC (4.63-6.08) x10^6/uL Hgb (13.7-17.5) g/dL Hct (40.1-51.0) % MCV (79.0-92.2) fL MCH (25.7-32.2) pg MCHC (32.3-36.5) g/dL RDW (11.6-14.4) % Plt Count (163-337) x10^3/uL MPV (9.4-12.4) fL Sodium (135-145) mmol/L Potassium 4.1 D (3.5-5.1) mmol/L Chloride (98-107) mmol/L Carbon Dioxide (22-30) mmol/L Anion Gap (5-15) MEQ/L BUN (9-20) mg/dL Creatinine (0.66-1.25) mg/dL Estimated GFR ML/MIN Glucose (74-106) mg/dL POC Glucometer 96 (74 to 106) mg/dL Calcium (8.4-10.2) mg/dL Magnesium (1.6-2.3) mg/dL Total Bilirubin (0.2-1.3) mg/dL AST (17-59) U/L ALT (0-50) U/L Alkaline Phosphatase (38-126) U/L Serum Total Protein (6.3-8.2) g/dL Albumin (3.5-5.0) g/dL Ur Random Creatinine 32.2 MG/DL U Random Total Protein 13 H (0-12) mg/dL Urine Sodium 152 H (30-90) mmol/L 07/24/24 07/24/24 07/25/24 Range/Units 16:31 21:05 04:52 WBC 8.1 (4.23-9.07) x10^3/uL RBC 4.61 L (4.63-6.08) x10^6/uL Hgb 13.6 L (13.7-17.5) g/dL Hct 41.2 (40.1-51.0) % MCV 89.4 (79.0-92.2) fL MCH 29.5 (25.7-32.2) pg MCHC 33.0 (32.3-36.5) g/dL RDW 13.4 (11.6-14.4) % Plt Count 264 (163-337) x10^3/uL MPV 9.1 L (9.4-12.4) fL Sodium (135-145) mmol/L Potassium (3.5-5.1) mmol/L Chloride (98-107) mmol/L Carbon Dioxide (22-30) mmol/L Anion Gap (5-15) MEQ/L BUN (9-20) mg/dL Creatinine (0.66-1.25) mg/dL Estimated GFR ML/MIN Glucose (74-106) mg/dL POC Glucometer 102 206 H (74 to 106) mg/dL Calcium (8.4-10.2) mg/dL Magnesium (1.6-2.3) mg/dL Total Bilirubin (0.2-1.3) mg/dL AST (17-59) U/L ALT (0-50) U/L Alkaline Phosphatase (38-126) U/L Serum Total Protein (6.3-8.2) g/dL Albumin (3.5-5.0) g/dL Ur Random Creatinine MG/DL U Random Total Protein (0-12) mg/dL Urine Sodium (30-90) mmol/L 07/25/24 07/25/24 Range/Units 04:52 07:22 WBC (4.23-9.07) x10^3/uL RBC (4.63-6.08) x10^6/uL Hgb (13.7-17.5) g/dL Hct (40.1-51.0) % MCV (79.0-92.2) fL MCH (25.7-32.2) pg MCHC (32.3-36.5) g/dL RDW (11.6-14.4) % Plt Count (163-337) x10^3/uL MPV (9.4-12.4) fL Sodium 139 (135-145) mmol/L Potassium 3.7 (3.5-5.1) mmol/L Chloride 107 (98-107) mmol/L Carbon Dioxide 28 (22-30) mmol/L Anion Gap 8.4 (5-15) MEQ/L BUN 20 (9-20) mg/dL Creatinine 1.42 H (0.66-1.25) mg/dL Estimated GFR 56.6 ML/MIN Glucose 114 H (74-106) mg/dL POC Glucometer 98 (74 to 106) mg/dL Calcium 8.9 (8.4-10.2) mg/dL Magnesium 2.2 (1.6-2.3) mg/dL Total Bilirubin 0.40 (0.2-1.3) mg/dL AST 42 (17-59) U/L ALT 29 (0-50) U/L Alkaline Phosphatase 122 (38-126) U/L Serum Total Protein 6.3 (6.3-8.2) g/dL Albumin 3.7 (3.5-5.0) g/dL Ur Random Creatinine MG/DL U Random Total Protein (0-12) mg/dL Urine Sodium (30-90) mmol/L Microbiology 07/23/24 17:16 Blood Culture - Preliminary Blood 07/23/24 17:16 Blood Culture - Preliminary Blood Accuchecks Date 07/25/24 Date 07/24/24 Date 07/24/24 Date 07/24/24 Time 07:25 Time 21:00 Time 16:39 Time 11:55 - Radiology Impressions Radiology Exams & Impressions: Radiology Procedures Category Date Time Status FOOT (MINIMUM 3 VIEWS) Stat Exams 07/23/24 16:47 Completed MRI LOWER EXT W/O CONTRAST [MRI] Routine Exams 07/25/24 08:50 Ordered Assessment/Plan (1) Fracture of metatarsal of left foot, closed Current Visit: Yes Status: Acute Assessment & Plan: Given patient's extreme neuropathy and possibility for breakdown into Charcot at the level of the midfoot in conjunction with subsequent infection of the third digit stabilization is recommended however we will try and the minimally invasive with percutaneous pinning of the fourth and fifth metatarsals Code(s): S92.302A - FRACTURE OF UNSP METATARSAL BONE(S), LEFT FOOT, INIT (2) Leukocytosis Current Visit: No Status: Resolved Qualifiers: Leukocytosis type: unspecified Qualified Code(s): D72.829 - Elevated white blood cell count, unspecified Assessment & Plan: resolving with IV antibiotics, medicine team managing Code(s): D72.829 - ELEVATED WHITE BLOOD CELL COUNT, UNSPECIFIED (3) Foot fracture, left Current Visit: Yes Status: Acute Qualifiers: Encounter type: initial encounter Fracture type: closed Qualified Code(s): S92.902A - Unspecified fracture of left foot, initial encounter for closed fracture Code(s): S92.902A - UNSP FRACTURE OF LEFT FOOT, INIT ENCNTR FOR CLOSED FRACTURE (4) Diabetes mellitus with neuropathy Current Visit: Yes Status: Chronic Qualifiers: Diabetes mellitus type: type 2 Diabetes mellitus technician terminal and repeater insulin use: with technician terminal and repeater use Qualified Code(s): E11.40 - Type 2 diabetes mellitus with diabetic neuropathy, unspecified; Z79.4 - terminal clerk (current) use of insulin Code(s): E11.40 - TYPE 2 DIABETES MELLITUS WITH DIABETIC NEUROPATHY, UNSP (5) Osteomyelitis Current Visit: Yes Status: Acute Assessment & Plan: wound debrided at bedside this a.m. demonstrating a wound measuring 0.8 x 0.9 with a positive probe to bone and purulent drainage. At this time given patient history and MRI will be obtained to make the final determination however have discussed high probability of amputation of the third digit which will be left open and closed at a later date with at minimum 2 weeks of IV antibiotics. Nonweightbearing recommended to the left lower extremity Recommend knee scooter for ambulation Pain control per medicine team Obtain culture to the distal tip of third digit Code(s): M86.9 - OSTEOMYELITIS, UNSPECIFIED
[2024-07-25] MEDS: VITAMIN D2 PO SCH (09:17)
[2024-07-25] MEDS ORDERED: NON-FORMULARY ITEM (Nortriptyline Hcl [Nortriptyline Hcl] 25 MG Capsule) PO SCH (10:00)
[2024-07-25] MEDS ORDERED: DEMADEX 20 MG PO SCH (10:00)
[2024-07-25] MEDS ORDERED: Marcaine Mpf 0.5% Vial 30 Ml ONE (11:11)
[2024-07-25] MEDS ORDERED: XYLOCAINE 1% HCL 20 ML MDV ONE (11:12)
[2024-07-25] MEDS ORDERED: Sodium Chloride 0.9% 1000 ML 1,000 ML ONE (11:20)
--- NOTE | 2024-07-25 13:44 | XRAY ---
Indication: 3rd toe infection. Sagittal, coronal, and axial MRI left mid to forefoot performed using T1, T2, and STIR sequences. Comparison: None Several images/sequences slightly degraded by motion artifact. Acute fractures mid to distal shafts 4th/5th metatarsals as reported on radiograph July 23, 2024. Visualized foot demonstrates diffuse deep and superficial soft tissue swelling/edema signal including all toes without focal solid/cystic soft tissue mass or abnormal fluid collection. Visualized flexor and extensor mechanism grossly unremarkable. There is diffuse bone edema signal of all visualized tarsal bones and 2nd-5th metatarsals either posttraumatic versus infectious. Additional bone edema signal 3rd distal phalanges. Lack of IV contrast precludes further characterization. Incidental 1 cm bone cyst base 1st metatarsal, mild/moderate degenerative changes 1st-2nd cuneiform/navicular articulation, and mild degenerative changes 1st MTP. Impression: 1. Motion artifact. 2. Acute fractures shafts 4th/5th metatarsals. 3. Diffuse soft tissue swelling/edema presumed related to fractures. Infectious process not completely excluded in right clinical setting. 4. Diffuse bone edema signal all visualized tarsal bones, 2nd-5th metatarsals, and distal 3rd phalanx Doubt findings related to fracture given diffuse appearance. Rule out infection/osteomyelitis. 5. Incidental degenerative changes 1st MTP and cuneiform/navicular articulation. Also incidental small bone cyst base 1st metatarsal.
[2024-07-25] MEDS ORDERED: GlucaGen 1 MG IM PRN (15:55)
[2024-07-25] MEDS ORDERED: D50W 50 ml Abboject IV PRN (15:55)
[2024-07-25] MEDS ORDERED: Glutose 15 GM ORAL GEL PO PRN (15:55)
[2024-07-25] MEDS: D50W 50 ml Abboject IV ONE (16:04)
[2024-07-25] MEDS ORDERED: Versed 2 MG/2 ML Injection ONE (17:26)
[2024-07-25] MEDS ORDERED: SUBLIMAZE 100 MCG/2 ML ONE (17:26)
[2024-07-25] MEDS ORDERED: Xylocaine-Mpf 2% 5 Ml Vial ONE (17:27)
[2024-07-25] MEDS ORDERED: ROBINUL ONE (17:48)
[2024-07-25] MEDS ORDERED: Ephedrine Sulfate 50 MG/ML ONE (18:33)
[2024-07-25] MEDS: TROUGH DRUG LEVELS IJ ONE ×2 (19:17→22:12)
[2024-07-25] MEDS ORDERED: NORCO 5/325 MG PO PRN (19:50)
[2024-07-26 05:29] LABS: Absolute Neutrophil Ct (ANC) 6.71 x10^3/uL (1.78-5.38); BASOPHIL % 0.6 % (0.2-1.2); Basophil (Absolute #) 0.06 x10^3/uL (0.01-0.08); Eosinophil % 2.2 % (0.8-7.0); Eosinophil (Absolute #) 0.22 x10^3/uL (0.04-0.54); Hematocrit 40.6 % (40.1-51.0); Hemoglobin 13.4 g/dL (13.7-17.5); IMMATURE GRAN # 0.03 x10^3u/L (0.001-0.031); IMMATURE GRAN % 0.3 % (0.001-0.429); Lymphocyte (Absolute #) 2.29 x10^3/uL (1.32-3.57); Lymphocytes % 22.7 % (21.8-53.1); Mean Corpuscular Hemoglobin 29.4 pg (25.7-32.2); Mean Platelet Volume 9.6 fL (9.4-12.4); Monocyte (Absolute #) 0.78 x10^3/uL (0.30-0.82); Monocytes % 7.7 % (5.3-12.2); Neutrophil % 66.5 % (34.0-67.9); Platelet Count 274 x10^3/uL (163-337); Red Blood Count 4.56 x10^6/uL (4.63-6.08); Red Cell Distribution Width 13.2 % (11.6-14.4); White Blood Count 10.1 x10^3/uL (4.23-9.07)
[2024-07-26 05:49] LABS: ALBUMIN 3.6 g/dL (3.5-5.0); ANION GAP 11.3 MEQ/L (5-15); BILIRUBIN,TOTAL 0.4 mg/dL (0.2-1.3); Calcium 8.7 mg/dL (8.4-10.2); Creatinine 1 1.24 mg/dL (0.66-1.25); EST GLOMERULAR FILTRATION RATE 66.6 ML/MIN; Potassium 3.5 mmol/L (3.5-5.1); Total Protein 6.3 g/dL (6.3-8.2)
[2024-07-26 08:19] VITALS: PULSE 58
--- NOTE | 2024-07-26 08:22 | XRAY ---
Indication: Left 3rd toe amputation. Pinning 4th/5th metatarsals. Intraoperative fluoroscopy provided for 3 minute 2 seconds. 17 digital spot images submitted for interpretation demonstrates orthopedic K wires fixating 4th/5th metatarsal shaft fractures in good apposition/alignment. Total amputation 3rd toe. Correlate with intraoperative findings/report.
[2024-07-26 08:50] VITALS: TEMP 97.7
--- NOTE | 2024-07-26 09:30 | XRAY ---
3 minutes 2 seconds of fluoroscopy used in surgery for a left 3rd toe amputation and pinning 4th/5th metatarsals.
--- NOTE | 2024-07-26 09:48 | OP ---
SURGERY DATE/TIME: 07/25/2024 [id number] PREOPERATIVE DIAGNOSES: 1) Osteomyelitis left third digit, confirmed with MRI. 2) Metatarsal fractures 4 and 5, unstable. 3) Diabetic peripheral neuropathy. 4) Diabetic foot ulcer. 5) Difficulty with ambulation. 6) Osteopenia. 7) Instability with gait. POSTOPERATIVE DIAGNOSES: 1) Osteomyelitis left third digit, confirmed with MRI. 2) Metatarsal fractures 4 and 5, unstable. 3) Diabetic peripheral neuropathy. 4) Diabetic foot ulcer. 5) Difficulty with ambulation. 6) Osteopenia. 7) Instability with gait. PROCEDURE: 1) Amputation third digit, open, third digit left foot. 2) Open reduction percutaneous pinning, left foot fourth metatarsal and fifth metatarsal. SURGEON: Antelmo Lopez DPM. WILL CALL CLERK: None. ANESTHESIA: Monitored anesthesia care with a local block consisting of 20 mL of 1:1 mixture of 1% lidocaine plain and 0.5% bupivacaine plain injected in an ankle block type fashion. HEMOSTASIS: A pressure dressing. ESTIMATED BLOOD LOSS: Approximately 20 mL. MATERIALS: 3-0 nylon, two 0.062 K-wires, 1/4-inch Iodoform packing. INJECTABLES: 20 mL of a 1:1 mixture of 1% lidocaine plain and 0.5% bupivacaine plain. INDICATIONS: The patient is a very pleasant 58-year-old male who was met on the floor this morning. He was here in the hospital for concerns of infected toe and metatarsal fractures to the left lower extremity. Per patient, subjective examination, patient indicates that the injury started approximately 2-1/2 weeks ago while moving furniture. Feels as though he stubbed his third toe and this started the swelling and pain to the left third digit. From that standpoint, the patient had noticed as he was ambulating a crunching sensation in the left foot which urged him to proceed to the emergency department as he has had a history of to the right lower extremity with a very similar finding. From that standpoint, decision was made to proceed with an MRI to better assess the third digit which demonstrated indications of osteomyelitis as well as a clinical examination which demonstrated a wound with a positive probe to bone. Discussion was held in regards to options at this time. 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 Given these findings, percutaneous pinning with attempted closed reduction which transitioned to an open reduction was suggested for the metatarsal fractures to minimize risk of infection as well as minimize soft tissue insult. From that standpoint, decision was made to proceed with an amputation after the MRI was obtained demonstrating osteomyelitis of the third digit at the distal phalanx and, to a lesser degree, the middle phalanx of the third digit. The patient has been made aware of all risks, complications and benefits of surgical intervention at this time including but not limited to infection, hematoma, seroma, possibility of delayed wound healing, non-wound healing, possibility of failure of surgical intervention, possible need for further surgical intervention at a later date. It is noted that at this time we plan to stage this procedure with a delayed primary closure sometime next week if it confirmed that we have eradicated the infection. We will likely remain non-weightbearing for approximately 6 to 8 weeks following surgical intervention. At this time, the patient is aware of all this and wishes to proceed. No guarantees have been provided as to the outcome. Plenty of time was allowed for the patient to ask questions which were answered to his apparent satisfaction. It is at this time we decided to proceed. DESCRIPTION OF PROCEDURE AND FINDINGS: Patient was brought into the operating room and placed on the operating room table in the supine position. At this time, monitored anesthesia care was administered until the patient was adequately sedated. The left lower extremity was prepped and draped in the typical sterile fashion and lowered onto the surgical field. At this time, utilizing a 15 blade, surgical incision was made in a dorsal and plantar racquet-type incision to the third distal phalanx. This was carried down to the level of bone, disarticulating at the level of the metatarsophalangeal joint. Once this was disarticulated, any tendons that were exposed were resected, any bleeders were cauterized or hand-tied. This was cleansed with 1000 mL of Bactisure and then 500 mL of sodium chloride. Following this, 1/4-inch Iodoform packing soaked in iodine was then packed into the wound. 3-0 nylon was utilized to coapt the dorsal and plantar aspects of the incision site. From that standpoint, under fluoroscopic guidance, a 0.062 K-wire was utilized in the fifth metatarsal head, fixating the metatarsal head through the base of the fracture through the fifth metatarsal entirely. Once this was performed, the fourth metatarsal was performed. However, reduction in the sagittal plain was difficult to achieve so decision was made to go open where a 2 cm incision was opened up on the dorsal aspect of the foot. Combination of lobster claws, osteotomes, and curved hemostats to distract the fracture site from its comminuted state to its original position and then pinned into the base of the fourth metatarsal. This was checked under multiple views and deemed to be in an adequate position. From that standpoint, copious amounts of sterile saline were utilized to flush the dorsal 2 cm wound which was coapted utilizing 2-0 Vicryl and 3-0 nylon in a simple interrupted buried-type fashion and a horizontal mattress-type fashion. Following this, a multilayer compression dressing consisting of Betadine, Adaptic, 4 x 4, ABD and a well-padded posterior splint was applied to the patient's left lower extremity with the foot orthogonal relative to longitudinal axis of the leg. The patient was then reversed from anesthesia and returned to the postoperative anesthesia care unit with vital signs stable and vascular status intact. Patient handled the anesthesia as well as the procedure without significant complication. Postoperative orders as indicated in the patient's discharge chart.
[2024-07-26] MEDS: Ecotrin 325 MG PO SCH (10:50)
--- NOTE | 2024-07-26 10:54 | PCM.NOTE ---
Date and Time: 07/26/24 1051 - Review of Systems Constitutional: No Symptoms, No Fever, No Chills Eyes: No Symptoms Ears, Nose, & Throat: No Symptoms Respiratory: No Symptoms, No Cough Cardiac: No Symptoms, No Chest Pain, No Edema Abdominal/Gastrointestinal: No Symptoms, No Abdominal Pain, No Nausea, No Vomiting, No Diarrhea Genitourinary Symptoms: No Symptoms, No Dysuria, No Frequency Musculoskeletal: Other (Foot pain) Skin: No Symptoms Neurological: No Symptoms Psychological: No Symptoms Objective Exam General Appearance: mild distress Neurologic Exam: alert, oriented x 3, cooperative Skin Exam: normal color, warm, dry Wound Assessment: Skin/Wound Assessment Wound/Incision Assessment Start: 07/23/24 21:53 Text: Status: Active Freq: Q6H Protocol: Document 07/26/24 08:00 EK (Rec: 07/26/24 09:11 EK [id number]) Wound/Incision Assessment Left Foot Wound Assessment Shift Assessment Wound Type Incision Wound Stage Non Pressure Wound Dressing Status Dry & Intact Drainage Amount Moderate Drainage Odor None/Absent Comment 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 - plaster cast in place - some serosanguinous drainage present on dressing - Eye Exam: PERRL, EOMI Ears, Nose, Throat Exam: normal ENT inspection Neck Exam: normal inspection Lymphatic Exam: No adenopathy Respiratory Exam: normal breath sounds, lungs clear Cardiovascular Exam: regular rate/rhythm, normal heart sounds Gastrointestinal/Abdomen Exam: soft, normal bowel sounds, No tenderness Extremity Exam: normal inspection, normal range of motion Back Exam: normal inspection Male Genitalia Exam: deferred Rectal Exam: deferred Objective Data Vital Signs: Vital Signs - 24 hr Temp Pulse Resp BP Pulse Ox 07/26/24 08:18 58 L 16 95 07/26/24 07:00 97.7 F 56 L 18 149/74 96 07/26/24 03:00 96.5 F 62 16 147/83 94 L 07/25/24 23:15 96.9 F 56 L 16 154/80 95 07/25/24 22:15 58 L 140/66 07/25/24 21:45 58 L 153/72 07/25/24 20:15 60 147/61 07/25/24 20:00 62 152/85 07/25/24 19:45 96.1 F 59 L 16 148/93 95 07/25/24 16:00 97.1 F 55 L 16 144/77 95 07/25/24 12:00 97.3 F 53 L 16 149/83 94 L Pain Assessment - Last Documented Pain Intensity 0 Intake and Output: Intake & Output 07/23/24 07/24/24 07/25/24 07/26/24 11:59 11:59 11:59 11:59 Intake Total 1813 4041 600 Output Total 750 4200 1850 Balance 1063 -159 -1250 Weight 91.8 kg 91.8 kg Lab Results: Lab Results-Last 24 Hours 07/25/24 07/25/24 07/25/24 Range/Units 11:53 15:47 15:50 WBC (4.23-9.07) x10^3/uL RBC (4.63-6.08) x10^6/uL Hgb (13.7-17.5) g/dL Hct (40.1-51.0) % MCV (79.0-92.2) fL MCH (25.7-32.2) pg MCHC (32.3-36.5) g/dL RDW (11.6-14.4) % Plt Count (163-337) x10^3/uL MPV (9.4-12.4) fL Gran % (34.0-67.9) % Immature Gran % (Auto) (0.001-0.429) % Nucleat RBC Rel Count (0.00-0.2) % Eos # (Auto) (0.04-0.54) x10^3/uL Immature Gran # (Auto) (0.001-0.031) x10^3u/L Absolute Lymphs (auto) (1.32-3.57) x10^3/uL Absolute Monos (auto) (0.30-0.82) x10^3/uL Absolute Nucleated RBC (0.00-0.012) x10^3u/L Lymphocytes % (21.8-53.1) % Monocytes % (5.3-12.2) % Eosinophils % (0.8-7.0) % Basophils % (0.2-1.2) % Absolute Granulocytes (1.78-5.38) x10^3/uL Basophils # (0.01-0.08) x10^3/uL Sodium (135-145) mmol/L Potassium (3.5-5.1) mmol/L Chloride (98-107) mmol/L Carbon Dioxide (22-30) mmol/L Anion Gap (5-15) MEQ/L BUN (9-20) mg/dL Creatinine (0.66-1.25) mg/dL Estimated GFR ML/MIN Glucose (74-106) mg/dL POC Glucometer 72 L 46 L* 42 L* (74 to 106) mg/dL Calcium (8.4-10.2) mg/dL Total Bilirubin (0.2-1.3) mg/dL AST (17-59) U/L ALT (0-50) U/L Alkaline Phosphatase (38-126) U/L Serum Total Protein (6.3-8.2) g/dL Albumin (3.5-5.0) g/dL Vancomycin Trough (10-20) ug/mL 07/25/24 07/25/24 07/25/24 Range/Units 16:10 16:25 17:28 WBC (4.23-9.07) x10^3/uL RBC (4.63-6.08) x10^6/uL Hgb (13.7-17.5) g/dL Hct (40.1-51.0) % MCV (79.0-92.2) fL MCH (25.7-32.2) pg MCHC (32.3-36.5) g/dL RDW (11.6-14.4) % Plt Count (163-337) x10^3/uL MPV (9.4-12.4) fL Gran % (34.0-67.9) % Immature Gran % (Auto) (0.001-0.429) % Nucleat RBC Rel Count (0.00-0.2) % Eos # (Auto) (0.04-0.54) x10^3/uL Immature Gran # (Auto) (0.001-0.031) x10^3u/L Absolute Lymphs (auto) (1.32-3.57) x10^3/uL Absolute Monos (auto) (0.30-0.82) x10^3/uL Absolute Nucleated RBC (0.00-0.012) x10^3u/L Lymphocytes % (21.8-53.1) % Monocytes % (5.3-12.2) % Eosinophils % (0.8-7.0) % Basophils % (0.2-1.2) % Absolute Granulocytes (1.78-5.38) x10^3/uL Basophils # (0.01-0.08) x10^3/uL Sodium (135-145) mmol/L Potassium (3.5-5.1) mmol/L Chloride (98-107) mmol/L Carbon Dioxide (22-30) mmol/L Anion Gap (5-15) MEQ/L BUN (9-20) mg/dL Creatinine (0.66-1.25) mg/dL Estimated GFR ML/MIN Glucose 181 H (74-106) mg/dL POC Glucometer 131 H 100 (74 to 106) mg/dL Calcium (8.4-10.2) mg/dL Total Bilirubin (0.2-1.3) mg/dL AST (17-59) U/L ALT (0-50) U/L Alkaline Phosphatase (38-126) U/L Serum Total Protein (6.3-8.2) g/dL Albumin (3.5-5.0) g/dL Vancomycin Trough (10-20) ug/mL 07/25/24 07/25/24 07/25/24 Range/Units 19:18 21:20 21:23 WBC (4.23-9.07) x10^3/uL RBC (4.63-6.08) x10^6/uL Hgb (13.7-17.5) g/dL Hct (40.1-51.0) % MCV (79.0-92.2) fL MCH (25.7-32.2) pg MCHC (32.3-36.5) g/dL RDW (11.6-14.4) % Plt Count (163-337) x10^3/uL MPV (9.4-12.4) fL Gran % (34.0-67.9) % Immature Gran % (Auto) (0.001-0.429) % Nucleat RBC Rel Count (0.00-0.2) % Eos # (Auto) (0.04-0.54) x10^3/uL Immature Gran # (Auto) (0.001-0.031) x10^3u/L Absolute Lymphs (auto) (1.32-3.57) x10^3/uL Absolute Monos (auto) (0.30-0.82) x10^3/uL Absolute Nucleated RBC (0.00-0.012) x10^3u/L Lymphocytes % (21.8-53.1) % Monocytes % (5.3-12.2) % Eosinophils % (0.8-7.0) % Basophils % (0.2-1.2) % Absolute Granulocytes (1.78-5.38) x10^3/uL Basophils # (0.01-0.08) x10^3/uL Sodium (135-145) mmol/L Potassium (3.5-5.1) mmol/L Chloride (98-107) mmol/L Carbon Dioxide (22-30) mmol/L Anion Gap (5-15) MEQ/L BUN (9-20) mg/dL Creatinine (0.66-1.25) mg/dL Estimated GFR ML/MIN Glucose (74-106) mg/dL POC Glucometer 79 146 H (74 to 106) mg/dL Calcium (8.4-10.2) mg/dL Total Bilirubin (0.2-1.3) mg/dL AST (17-59) U/L ALT (0-50) U/L Alkaline Phosphatase (38-126) U/L Serum Total Protein (6.3-8.2) g/dL Albumin (3.5-5.0) g/dL Vancomycin Trough 15.31 (10-20) ug/mL 07/26/24 07/26/24 07/26/24 Range/Units 05:20 05:20 07:33 WBC 10.1 H (4.23-9.07) x10^3/uL RBC 4.56 L (4.63-6.08) x10^6/uL Hgb 13.4 L (13.7-17.5) g/dL Hct 40.6 (40.1-51.0) % MCV 89.0 (79.0-92.2) fL MCH 29.4 (25.7-32.2) pg MCHC 33.0 (32.3-36.5) g/dL RDW 13.2 (11.6-14.4) % Plt Count 274 (163-337) x10^3/uL MPV 9.6 (9.4-12.4) fL Gran % 66.5 (34.0-67.9) % Immature Gran % (Auto) 0.3 (0.001-0.429) % Nucleat RBC Rel Count 0.0 (0.00-0.2) % Eos # (Auto) 0.22 (0.04-0.54) x10^3/uL Immature Gran # (Auto) 0.03 (0.001-0.031) x10^3u/L Absolute Lymphs (auto) 2.29 (1.32-3.57) x10^3/uL Absolute Monos (auto) 0.78 (0.30-0.82) x10^3/uL Absolute Nucleated RBC 0.00 (0.00-0.012) x10^3u/L Lymphocytes % 22.7 (21.8-53.1) % Monocytes % 7.7 (5.3-12.2) % Eosinophils % 2.2 (0.8-7.0) % Basophils % 0.6 (0.2-1.2) % Absolute Granulocytes 6.71 H (1.78-5.38) x10^3/uL Basophils # 0.06 (0.01-0.08) x10^3/uL Sodium 138 (135-145) mmol/L Potassium 3.5 (3.5-5.1) mmol/L Chloride 109 H (98-107) mmol/L Carbon Dioxide 22 (22-30) mmol/L Anion Gap 11.3 (5-15) MEQ/L BUN 17 (9-20) mg/dL Creatinine 1.24 (0.66-1.25) mg/dL Estimated GFR 66.6 ML/MIN Glucose 125 H (74-106) mg/dL POC Glucometer 93 (74 to 106) mg/dL Calcium 8.7 (8.4-10.2) mg/dL Total Bilirubin 0.40 (0.2-1.3) mg/dL AST 36 (17-59) U/L ALT 28 (0-50) U/L Alkaline Phosphatase 121 (38-126) U/L Serum Total Protein 6.3 (6.3-8.2) g/dL Albumin 3.6 (3.5-5.0) g/dL Vancomycin Trough (10-20) ug/mL Radiology Exams: Radiology Procedures Category Date Time Status FLUOROSCOPY UP TO 1 HR Routine Exams 07/25/24 09:04 Completed FOOT (MINIMUM 3 VIEWS) Routine Exams 07/25/24 09:03 Completed MRI LOWER EXT W/O CONTRAST [MRI] Routine Exams 07/25/24 08:50 Completed Multi-Disciplinary Progress Notes: Multi-Disciplinary Progress Notes 07/25/24 11:31 Pharmacy Note by Adriel Moreno Vancomycin trough of 23.2 is not accurate due to dose infusing while lab drawn was done. Will recheck trough tonight. Initialized on 07/25/24 11:31 - END OF NOTE Assessment/Plan (1) Foot fracture, left Current Visit: Yes Status: Acute Qualifiers: Encounter type: initial encounter Fracture type: closed Qualified Code(s) : S92.902A - Unspecified fracture of left foot, initial encounter for closed fracture Code(s): S92.902A - UNSP FRACTURE OF LEFT FOOT, INIT ENCNTR FOR CLOSED FRACTURE (2) Diabetes mellitus with neuropathy Current Visit: Yes Status: Chronic Qualifiers: Diabetes mellitus type: type 2 Diabetes mellitus roasterman insulin use: with mcfp use Qualified Code(s): E11.40 - Type 2 diabetes mellitus with diabetic neuropathy, unspecified; Z79.4 - long term acute care registered nurse (current) use of insulin Code(s): E11.40 - TYPE 2 DIABETES MELLITUS WITH DIABETIC NEUROPATHY, UNSP Telemedicine Encounter - Telemedicine Encounter Telemedicine Encounter: "The entirety of this encounter was performed via Telemedicine" This visit was performed using real-time audio and video connection between my location and thepatients locationwith the assistance of a surrogateat the patients location. Written or verbal consent was obtained from the patient/guardian to perform this visit [facility]. Any patient questions regarding the telemedicine interaction were answered.
--- NOTE | 2024-07-26 12:30 | PCM.DS ---
Discharge Summary Date of Admission: 07/25/24 07:50 Date of Discharge: 07/26/24 Admitting Physician: PAYAL SHARP MD Consults: Consults on Case 07/24/24 08:23 Consult Podiatry ROUTINE 07/25/24 15:55 Notify Physician ROUTINE Primary Care Provider: AUDREY,HARRISON Allergies Allergies lisinopril Allergy (Mild, Verified 07/23/24 16:23) Anaphylactic Reaction doxycycline Allergy (Verified 07/23/24 16:23) naproxen Adverse Reaction (Mild, Verified 07/23/24 16:23) Rash Hospital Summary - Hospital Course Hospital Course: This patient was admitted with fracture of foot. He has diabetes with diabetic neuropathy and did not have pain in foot. MRI showed fractures of 4th and 5th metatarsals. In addition, there was evidence suggesting osteomyelitis. He was seen by podiatry and had surgery on 07/25. He does have diabetes which is controlled. He has COPD which is managed well with current meds. He was cleared by Podiatry for discharge. PICC line will be placed and he will continue IV antibiotics outpatient. Follow up with Podiatry. - Vitals & Intake/Output Vital Signs: Vital Signs Temperature 97.7 F 07/26/24 07:00 Pulse Rate 58 L 07/26/24 08:18 Respiratory Rate 16 07/26/24 08:18 Blood Pressure 149/74 07/26/24 07:00 O2 Sat by Pulse Oximetry 95 07/26/24 08:18 Intake & Output: Intake & Output 07/24/24 07/25/24 07/26/24 07/27/24 11:59 11:59 11:59 11:59 Intake Total 1813 4041 600 Output Total 750 4200 1850 Balance 1063 -159 -1250 Weight 91.8 kg 91.8 kg - Lab Result Diagrams: 07/26/24 05:20 07/26/24 05:20 Lab Results-Last 24 Hrs: Lab Results-Last 24 Hours 07/25/24 07/25/24 07/25/24 Range/Units 15:47 15:50 16:10 WBC (4.23-9.07) x10^3/uL RBC (4.63-6.08) x10^6/uL Hgb (13.7-17.5) g/dL Hct (40.1-51.0) % MCV (79.0-92.2) fL MCH (25.7-32.2) pg MCHC (32.3-36.5) g/dL RDW (11.6-14.4) % Plt Count (163-337) x10^3/uL MPV (9.4-12.4) fL Gran % (34.0-67.9) % Immature Gran % (Auto) (0.001-0.429) % Nucleat RBC Rel Count (0.00-0.2) % Eos # (Auto) (0.04-0.54) x10^3/uL Immature Gran # (Auto) (0.001-0.031) x10^3u/L Absolute Lymphs (auto) (1.32-3.57) x10^3/uL Absolute Monos (auto) (0.30-0.82) x10^3/uL Absolute Nucleated RBC (0.00-0.012) x10^3u/L Lymphocytes % (21.8-53.1) % Monocytes % (5.3-12.2) % Eosinophils % (0.8-7.0) % Basophils % (0.2-1.2) % Absolute Granulocytes (1.78-5.38) x10^3/uL Basophils # (0.01-0.08) x10^3/uL Sodium (135-145) mmol/L Potassium (3.5-5.1) mmol/L Chloride (98-107) mmol/L Carbon Dioxide (22-30) mmol/L Anion Gap (5-15) MEQ/L BUN (9-20) mg/dL Creatinine (0.66-1.25) mg/dL Estimated GFR ML/MIN Glucose 181 H (74-106) mg/dL POC Glucometer 46 L* 42 L* (50 to 500) mg/dL Calcium (8.4-10.2) mg/dL Total Bilirubin (0.2-1.3) mg/dL AST (17-59) U/L ALT (0-50) U/L Alkaline Phosphatase (38-126) U/L Serum Total Protein (6.3-8.2) g/dL Albumin (3.5-5.0) g/dL Vancomycin Trough (10-20) ug/mL 12/23/24 12/23/24 12/23/24 Range/Units 16:25 17:28 19:18 WBC (4.23-9.07) x10^3/uL RBC (4.63-6.08) x10^6/uL Hgb (13.7-17.5) g/dL Hct (40.1-51.0) % MCV (79.0-92.2) fL MCH (25.7-32.2) pg MCHC (32.3-36.5) g/dL RDW (11.6-14.4) % Plt Count (163-337) x10^3/uL MPV (9.4-12.4) fL Gran % (34.0-67.9) % Immature Gran % (Auto) (0.001-0.429) % Nucleat RBC Rel Count (0.00-0.2) % Eos # (Auto) (0.04-0.54) x10^3/uL Immature Gran # (Auto) (0.001-0.031) x10^3u/L Absolute Lymphs (auto) (1.32-3.57) x10^3/uL Absolute Monos (auto) (0.30-0.82) x10^3/uL Absolute Nucleated RBC (0.00-0.012) x10^3u/L Lymphocytes % (21.8-53.1) % Monocytes % (5.3-12.2) % Eosinophils % (0.8-7.0) % Basophils % (0.2-1.2) % Absolute Granulocytes (1.78-5.38) x10^3/uL Basophils # (0.01-0.08) x10^3/uL Sodium (135-145) mmol/L Potassium (3.5-5.1) mmol/L Chloride (98-107) mmol/L Carbon Dioxide (22-30) mmol/L Anion Gap (5-15) MEQ/L BUN (9-20) mg/dL Creatinine (0.66-1.25) mg/dL Estimated GFR ML/MIN Glucose (74-106) mg/dL POC Glucometer 131 H 100 79 (50 to 500) mg/dL Calcium (8.4-10.2) mg/dL Total Bilirubin (0.2-1.3) mg/dL AST (17-59) U/L ALT (0-50) U/L Alkaline Phosphatase (38-126) U/L Serum Total Protein (6.3-8.2) g/dL Albumin (3.5-5.0) g/dL Vancomycin Trough (10-20) ug/mL 07/25/24 07/25/24 07/26/24 Range/Units 21:20 21:23 05:20 WBC 10.1 H (4.23-9.07) x10^3/uL RBC 4.56 L (4.63-6.08) x10^6/uL Hgb 13.4 L (13.7-17.5) g/dL Hct 40.6 (40.1-51.0) % MCV 89.0 (79.0-92.2) fL MCH 29.4 (25.7-32.2) pg MCHC 33.0 (32.3-36.5) g/dL RDW 13.2 (11.6-14.4) % Plt Count 274 (163-337) x10^3/uL MPV 9.6 (9.4-12.4) fL Gran % 66.5 (34.0-67.9) % Immature Gran % (Auto) 0.3 (0.001-0.429) % Nucleat RBC Rel Count 0.0 (0.00-0.2) % Eos # (Auto) 0.22 (0.04-0.54) x10^3/uL Immature Gran # (Auto) 0.03 (0.001-0.031) x10^3u/L Absolute Lymphs (auto) 2.29 (1.32-3.57) x10^3/uL Absolute Monos (auto) 0.78 (0.30-0.82) x10^3/uL Absolute Nucleated RBC 0.00 (0.00-0.012) x10^3u/L Lymphocytes % 22.7 (21.8-53.1) % Monocytes % 7.7 (5.3-12.2) % Eosinophils % 2.2 (0.8-7.0) % Basophils % 0.6 (0.2-1.2) % Absolute Granulocytes 6.71 H (1.78-5.38) x10^3/uL Basophils # 0.06 (0.01-0.08) x10^3/uL Sodium (135-145) mmol/L Potassium (3.5-5.1) mmol/L Chloride (98-107) mmol/L Carbon Dioxide (22-30) mmol/L Anion Gap (5-15) MEQ/L BUN (9-20) mg/dL Creatinine (0.66-1.25) mg/dL Estimated GFR ML/MIN Glucose (74-106) mg/dL POC Glucometer 146 H (50 to 500) mg/dL Calcium (8.4-10.2) mg/dL Total Bilirubin (0.2-1.3) mg/dL AST (17-59) U/L ALT (0-50) U/L Alkaline Phosphatase (38-126) U/L Serum Total Protein (6.3-8.2) g/dL Albumin (3.5-5.0) g/dL Vancomycin Trough 15.31 (10-20) ug/mL 07/26/24 07/26/24 07/26/24 Range/Units 05:20 07:33 11:26 WBC (4.23-9.07) x10^3/uL RBC (4.63-6.08) x10^6/uL Hgb (13.7-17.5) g/dL Hct (40.1-51.0) % MCV (79.0-92.2) fL MCH (25.7-32.2) pg MCHC (32.3-36.5) g/dL RDW (11.6-14.4) % Plt Count (163-337) x10^3/uL MPV (9.4-12.4) fL Gran % (34.0-67.9) % Immature Gran % (Auto) (0.001-0.429) % Nucleat RBC Rel Count (0.00-0.2) % Eos # (Auto) (0.04-0.54) x10^3/uL Immature Gran # (Auto) (0.001-0.031) x10^3u/L Absolute Lymphs (auto) (1.32-3.57) x10^3/uL Absolute Monos (auto) (0.30-0.82) x10^3/uL Absolute Nucleated RBC (0.00-0.012) x10^3u/L Lymphocytes % (21.8-53.1) % Monocytes % (5.3-12.2) % Eosinophils % (0.8-7.0) % Basophils % (0.2-1.2) % Absolute Granulocytes (1.78-5.38) x10^3/uL Basophils # (0.01-0.08) x10^3/uL Sodium 138 (135-145) mmol/L Potassium 3.5 (3.5-5.1) mmol/L Chloride 109 H (98-107) mmol/L Carbon Dioxide 22 (22-30) mmol/L Anion Gap 11.3 (5-15) MEQ/L BUN 17 (9-20) mg/dL Creatinine 1.24 (0.66-1.25) mg/dL Estimated GFR 66.6 ML/MIN Glucose 125 H (74-106) mg/dL POC Glucometer 93 137 H (50 to 500) mg/dL Calcium 8.7 (8.4-10.2) mg/dL Total Bilirubin 0.40 (0.2-1.3) mg/dL AST 36 (17-59) U/L ALT 28 (0-50) U/L Alkaline Phosphatase 121 (38-126) U/L Serum Total Protein 6.3 (6.3-8.2) g/dL Albumin 3.6 (3.5-5.0) g/dL Vancomycin Trough (10-20) ug/mL Micro Results-Entire Visit: Microbiology 07/23/24 17:16 Blood Culture - Preliminary Blood 07/23/24 17:16 Blood Culture - Preliminary Blood Accuchecks Date 07/26/24 Date 07/25/24 Date 07/25/24 Time 16:05 - Radiology Exams Ordered Rad Exams-Entire Visit: Radiology Procedures Category Date Time Status FLUOROSCOPY UP TO 1 HR Routine Exams 07/25/24 09:04 Completed FOOT (MINIMUM 3 VIEWS) Routine Exams 07/25/24 09:03 Completed MRI LOWER EXT W/O CONTRAST [MRI] Routine Exams 07/25/24 08:50 Completed - Procedures and Test Procedures and Tests throughout Hospitalization: Therapy Orders & Screens 07/23/24 21:28 Respiratory Therapy Consult ONCE Comment: Reason For Exam: Diagnosis: Left foot infection/fracture 07/24/24 01:03 Respiratory Therapy Assessment DAILY Comment: Diagnosis: Left foot infection/fracture 07/25/24 09:25 EKG ONCE Comment: Diagnosis: Left foot infection/fracture Discharge Exam General Appearance: no apparent distress Neurologic Exam: alert, oriented x 3, cooperative Eye Exam: PERRL, EOMI Ears, Nose, Throat Exam: normal ENT inspection Neck Exam: normal inspection Respiratory Exam: normal breath sounds, lungs clear Cardiovascular Exam: regular rate/rhythm, normal heart sounds Gastrointestinal/Abdomen Exam: soft, normal bowel sounds, No tenderness Male Genitalia Exam: deferred Rectal Exam: deferred Back Exam: normal inspection Extremity Exam: normal inspection Skin Exam: normal color Wound Assessment: Skin/Wound Assessment Wound/Incision Assessment Start: 07/23/24 21:53 Text: Status: Active Freq: Q6H Protocol: Document 07/26/24 08:00 EK (Rec: 07/26/24 09:11 EK [id number]) Wound/Incision Assessment Left Foot Wound Assessment Shift Assessment Wound Type Incision Wound Stage Non Pressure Wound Dressing Status Dry & Intact Drainage Amount Moderate Drainage Odor None/Absent Comment 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 - plaster cast in place - some serosanguinous drainage present on dressing - Lymphatic Exam: No adenopathy Final Diagnosis/Problem List - Final Discharge Diagnosis/Problem (1) Foot fracture, left Current Visit: Yes Status: Acute Assessment & Plan: Continue IV antibiotics outpatient Code(s): S92.902A - UNSP FRACTURE OF LEFT FOOT, INIT ENCNTR FOR CLOSED FRACTURE (2) Diabetes mellitus with neuropathy Current Visit: Yes Status: Chronic Code(s): E11.40 - TYPE 2 DIABETES MELLITUS WITH DIABETIC NEUROPATHY, UNSP Telemedicine Encounter - Telemedicine Encounter Telemedicine Encounter: "The entirety of this encounter was performed via Telemedicine" This visit was performed using real-time audio and video connection between my location and thepatients locationwith the assistance of a surrogateat the patients location. Written or verbal consent was obtained from the patient/guardian to perform this visit usingnchrindicolemedicine technology. Any patient questions regarding the telemedicine interaction were answered. - Discharge Disposition: Home, Self-Care Condition: Stable Prescriptions: No Action Albuterol Sulfate [Proair Hfa] 2 puffs IH QIDPRN PRN PRN Reason: sob Albuterol 2.5 mg/3 ml Neb [Proventil 2.5 mg/3 ml Neb] 1 neb IH QID PRN PRN PRN Reason: sob Amlodipine Besylate 5 mg [Norvasc 5 mg] 10 mg PO BID Insulin Glargine,Hum.rec.anlog [Basaglar Kwikpen U-100] 30 unit SQ BID Gabapentin [Neurontin ] 600 mg PO TID Sildenafil Citrate [Viagra] 100 mg PO DAILY PRN PRN PRN Reason: erectile dysfuction Esomeprazole Magnesium [Nexium] 40 mg PO BID Metoprolol Tartrate 25 mg [Lopressor 25MG Tab] 1.5 tab PO BID Ergocalciferol (Vitamin D2) [Vitamin D2] 50,000 unit PO UD Empagliflozin [Jardiance] 25 mg PO DAILY Torsemide 20 mg [Demadex 20 mg] 20 mg PO DAILY Nortriptyline HCl 25 mg PO DAILY Loperamide HCl 2 mg [Imodium 2 mg] 4 mg PO BID Follow up with: HARRISON VENTURA MD [Primary Care Provider] -
[2024-07-26] MEDS ORDERED: SILDENAFIL CITRATE 100 MG PO PRN (12:31)
[2024-07-26 12:39] VITALS: BP 147/74; RESP 18; O2SAT 96
[2024-07-26] MEDS: PHARMACY DOSING REQUEST MC ONE (14:34)
--- NOTE | 2024-07-26 14:52 | XRAY ---
Indication: PICC line placement. Comparison: February 26, 2023 Portable chest demonstrates new right arm PICC line with tip projecting over right atrium. Remaining chest unchanged again with right perihilar postsurgical changes and right lung calcified granulomas. Remaining heart and left lung unremarkable. Bony thorax intact again with osteopenia and degenerative changes.
--- NOTE | 2024-07-26 14:52 | XRAY ---
Indication: PICC line adjustment. Comparison: Taken earlier in the day. Portable chest demonstrates withdrawal right arm PICC line with tip now at cavoatrial junction. Remaining heart and lungs unchanged. No new/acute cardiopulmonary abnormalities.
== END 2024-07-26 15:53 | disposition home or self-care (01) | DRG 504 ==
LOC: ED 16:08 → MED SURG 20:51 → OBSVTOIN 07-25 07:50 → ED 07-25 16:08 → MED SURG 07-25 20:51
PROVIDERS: ADMIT Internal Medicine Nephrology; ATTEND Internal Medicine Nephrology
PROC: 0Y6U0Z0 Detachment at Left 3rd Toe, Complete, Open Approach (ICD-10-PCS; principal; 2024-07-25)
PROC: 0QSP04Z Reposition Left Metatarsal with Internal Fixation Device, Open Approach (ICD-10-PCS; 2024-07-25)
PROC: 0QSP04Z Reposition Left Metatarsal with Internal Fixation Device, Open Approach (ICD-10-PCS; 2024-07-25)
DX: S92.302A Fracture of unspecified metatarsal bone(s), left foot, initial encounter for closed fracture (principal); M86.9 Osteomyelitis, unspecified; N17.9 Acute kidney failure, unspecified; D72.829 Elevated white blood cell count, unspecified; E11.40 Type 2 diabetes mellitus with diabetic neuropathy, unspecified; Z79.4 Long term (current) use of insulin; Z79.899 Other long term (current) drug therapy; I10 Essential (primary) hypertension; Z85.118 Personal history of other malignant neoplasm of bronchus and lung; Z87.09 Personal history of other diseases of the respiratory system; E11.621 Type 2 diabetes mellitus with foot ulcer; M85.872 Other specified disorders of bone density and structure, left ankle and foot; R26.89 Other abnormalities of gait and mobility
CPT/HCPCS: 11044; 28485; 28810; 36415; 71045; 73630; 73718; 76000; 80053; 80202; 82570; 82947; 83036; 83605; 83735; 84132; 84134; 84156; 84300; 85025; 85027; 87040; 87070; 87077; 87186; 93005; 93268; 94640; 94760; 96374; 96375; 99223; 99283; A6260; J1644; J2250; J2704; J3010; J3480; Q3014; A9270-GY; G0378; J3370

== ENCOUNTER 2024-08-04 10:34 | Day surgery (SDC) | payer BC ==
[~2024-08-04 10:34] MED LIST: Marcaine Mpf 0.5% Vial 30 Ml ONE; Xylocaine 1% Vial 30 ML PF IJ ONE
[2024-08-04] MEDS ORDERED: Lactated Ringers 1,000 ML IV ONE (10:44)
[2024-08-04 10:51] VITALS: RESP 18; TEMP 97.6
[2024-08-04 11:02] LABS: Hematocrit 42.9 % (40.1-51.0); Hemoglobin 14.4 g/dL (13.7-17.5); Mean Cell Volume 87.9 fL (79.0-92.2); Mean Corpuscular Hemoglobin 29.5 pg (25.7-32.2); Mean Corpuscular Hgb Concent. 33.6 g/dL (32.3-36.5); Mean Platelet Volume 9.1 fL (9.4-12.4); Platelet Count 366 x10^3/uL (163-337); Red Blood Count 4.88 x10^6/uL (4.63-6.08); Red Cell Distribution Width 13.4 % (11.6-14.4); White Blood Count 9.3 x10^3/uL (4.23-9.07)
[2024-08-04] MEDS: Lactated Ringers 1,000 ML IV SCH (11:07)
[2024-08-04 11:27] LABS: ALBUMIN 4.7 g/dL (3.5-5.0); ANION GAP 11.7 MEQ/L (5-15); BILIRUBIN,TOTAL 0.5 mg/dL (0.2-1.3); Calcium 9.8 mg/dL (8.4-10.2); Creatinine 1 1.23 mg/dL (0.66-1.25); EST GLOMERULAR FILTRATION RATE 67.2 ML/MIN; Potassium 4.2 mmol/L (3.5-5.1); Total Protein 8.2 g/dL (6.3-8.2)
[2024-08-04] MEDS ORDERED: SUBLIMAZE 100 MCG/2 ML ONE (12:33)
[2024-08-04] MEDS ORDERED: Versed 2 MG/2 ML Injection ONE (12:33)
[2024-08-04] MEDS ORDERED: propofoL IV ONE (12:33)
[2024-08-04 13:59] VITALS: O2SAT 94
[2024-08-04 14:07] VITALS: BP 131/86; PULSE 57
--- NOTE | 2024-08-05 12:18 | OP ---
SURGERY DATE/TIME: 08/04/2024 [id number] PREOPERATIVE DIAGNOSES: 1) Osteomyelitis. 2) Diabetic foot ulcer. 3) Diabetic peripheral neuropathy. 4) Fractures of 4th and 5th metatarsals, closed, left foot. POSTOPERATIVE DIAGNOSES: 1) Osteomyelitis. 2) Diabetic foot ulcer. 3) Diabetic peripheral neuropathy. 4) Fractures of 4th and 5th metatarsals, closed, left foot. 5) Hematoma. PROCEDURE: 1) Incision and drainage to the level of bone, left foot, 3rd metatarsal. 2) Delayed primary closure, left foot. 3) Hematoma evacuation, incision and drainage. 4) Pin adjustment, 5th metatarsal fracture. SURGEON: Antelmo Lopez DPM. LAST INSERTER: None. ANESTHESIA: Monitored anesthesia care. HEMOSTASIS: Pressure dressing. ESTIMATED BLOOD LOSS: Approximately 15 mL. MATERIALS: 4-0 Monocryl, 3-0 nylon. INJECTABLES: See anesthesia report for details. INDICATIONS FOR PROCEDURE: The patient is a very pleasant 58-year-old male known to my service for metatarsal fractures to the left lower extremity as well as osteomyelitis to the 3rd digit of the left foot. Patient has undergone amputation of the 3rd digit as well as pin placement with open reduction of the 4th and 5th metatarsal fractures and is progressing without significant complication. We have obtained biopsy of the bone that demonstrate osteomyelitis of the 3rd digit. Today's purpose is to repeat the I and D and obtain an additional bone biopsy just proximal to the amputation site to ensure closure of the wound as well as adjust the position of the 5th metatarsal pin that appears to be becoming buried from that. Patient has been made aware of all risks, complications, and benefits of surgical intervention at this time including, but not limited to, infection, hematoma, seroma, possibility of delayed wound healing, non-wound healing, possibility of failure of surgical intervention, and possible need for further surgical intervention at a later date. No guarantees were provided as to the outcome of surgical intervention. Plenty of time was allowed for the patient to ask questions which were answered to his apparent satisfaction. It is at this time we decided to proceed. DESCRIPTION OF PROCEDURE AND FINDINGS: Patient was brought into the operating room and placed on the operating room table in the supine position. At this time, monitored anesthesia care was administered until the patient was adequately sedated. The left lower extremity was prepped and draped in the typical sterile fashion and lowered onto the surgical field. At this time, inspection of the wound demonstrated a significant amount of necrotic tissue and devitalized tissue at the opening of the 3rd digit amputation. A 15 blade was utilized to clean the wound edges of any nonviable tissue. Once this was performed, a rongeur was utilized to perform a bone debridement as well as perform a bone biopsy of the 3rd metatarsal head. Once this was performed, copious amounts of sodium chloride were utilized to irrigate the surgical field, 4-0 Monocryl and 4-0 nylon were utilized to coapt the subcutaneous skin edges in a simple interrupted buried-type fashion in a horizontal mattress-type fashion respectively. Once this was performed, a hematoma evacuation was performed at the dorsal aspect of the left foot over the dorsal incision where the open reduction took place, evacuating approximately 10 mL of hematoma. It does appear that there was some active bleeding so the decision was made to proceed with a moderate compression dressing. From that standpoint, the pin was then adjusted at the 5th metatarsal, pulling it out approximately 1 cm, and replacing the pin cover. Once this was performed, a dressing consisting of Betadine, Adaptic, 4 x 4, Kerlix, and Coban was applied to the patient's left lower extremity, then a well-padded posterior splint to the left lower extremity. Patient was then reversed from anesthesia and returned to the postoperative anesthesia care unit with vital signs stable and vascular status intact. Patient handled the anesthesia as well as the procedure without significant complication. Postoperative orders as indicated in the patient's discharge chart.
== END 2024-08-04 14:12 | disposition home or self-care (01) ==
LOC: SDC 10:34
PROVIDERS: ATTEND Podiatrist Foot & Ankle Surgery
DX: M86.9 Osteomyelitis, unspecified (principal); E11.621 Type 2 diabetes mellitus with foot ulcer; E11.42 Type 2 diabetes mellitus with diabetic polyneuropathy; S92.342A Displaced fracture of fourth metatarsal bone, left foot, initial encounter for closed fracture; S92.352A Displaced fracture of fifth metatarsal bone, left foot, initial encounter for closed fracture
CPT/HCPCS: 10140; 13160; 28005; 36415; 80053; 85027; J2250; J2704; J3010

== ENCOUNTER 2025-04-30 15:20 | Observation (INO) | payer BC ==
[2025-04-30 16:15] LABS: BASOPHIL % 0.5 % (0.2-1.2); Basophil (Absolute #) 0.06 x10^3/uL (0.01-0.08); Eosinophil (Absolute #) 0.09 x10^3/uL (0.04-0.54); Hematocrit 45.9 % (40.1-51.0); Hemoglobin 15.0 g/dL (13.7-17.5); IMMATURE GRAN # 0.05 x10^3u/L (0.001-0.031); IMMATURE GRAN % 0.4 % (0.001-0.429); Lymphocyte (Absolute #) 1.44 x10^3/uL (1.32-3.57); Mean Corpuscular Hemoglobin 29.9 pg (25.7-32.2); Mean Corpuscular Hgb Concent. 32.7 g/dL (32.3-36.5); Monocyte (Absolute #) 0.74 x10^3/uL (0.30-0.82); NUCLEATED RBC # 0.00 x10^3u/L (0.00-0.012); NUCLEATED RBC % 0.0 % (0.00-0.2); Platelet Count 254 x10^3/uL (163-337); Red Blood Count 5.01 x10^6/uL (4.63-6.08); White Blood Count 11.5 x10^3/uL (4.23-9.07)
[2025-04-30] MEDS ORDERED: APRESOLINE 20 MG/ML INJ ONE (16:35)
[2025-04-30] MEDS: APRESOLINE 20 MG/ML INJ IV ONE (16:39)
[2025-04-30 16:43] LABS: Calcium 9.3 mg/dL (8.4-10.2); Carbon Dioxide 28.0 mmol/L (22-30); Creatinine 1 1.09 mg/dL (0.66-1.25); EST GLOMERULAR FILTRATION RATE 77.2 ML/MIN; Glucose 160.0 mg/dL (74-106); NT PRO BNPII 342.0 pg/mL (<300); Potassium 4.0 mmol/L (3.5-5.1); SGOT/AST 27.0 U/L (17-59); SGPT/ALT 21.0 U/L (0-50); Total Protein 6.9 g/dL (6.3-8.2)
--- NOTE | 2025-04-30 17:49 | XRAY ---
CLINICAL HISTORY: HTN, generalized weakness COMPARISON: None. TECHNIQUE: Axial non-contrast CT scan of the brain was performed from the skull base to the high parietal region. One of the following dose-reduction techniques was utilized for this exam: automated exposure control, adjustment of the mA and/or kV according to patient size, or use of iterative reconstruction. FINDINGS: Brain Parenchyma: A few tiny, ill-defined iso- to hypodense areas are noted bilaterally in the subcortical and deep white matter, suggesting microvascular ischemic changes. There is no evidence of acute infarct, hemorrhage, or mass effect. Ventricular System: Prominent extra-axial CSF spaces are noted, suggesting senile changes. There is no evidence of subarachnoid hemorrhage or extra-axial fluid collections. Subarachnoid Spaces: The sulci and cisterns are normal. There is no evidence of subarachnoid hemorrhage or extra-axial fluid collections. Cerebellum and Brainstem: There are no masses, lesions, or areas of abnormal density. Orbits: The globes, optic nerves, and extraocular muscles appear normal. There is no evidence of orbital masses or abnormal density. Sinuses: Minimal to mild mucosal thickening involves the right maxillary sinus and bilateral ethmoid air cells. The remainder of the visualized sinuses is within normal limits. There is minimal deviation of the nasal septum, with a bony spur towards the left side. Mastoid Air Cells: The mastoid air cells are clear. There is no evidence of mastoiditis. Skull: Skull morphology is normal. IMPRESSION: 1. There are no intra- or extra-axial hematomas or parenchymal territorial hypodense areas to suggest an acute ischemic insult. 2. Microvascular white matter ischemic and senile changes are present. 3. Minimal to mild mucosal thickening involving the right maxillary sinus and bilateral ethmoid air cells is indicative of sinusitis. 4. Early changes of stroke may not be detected on a CT scan. If there is a strong clinical suspicion of stroke, then an MRI with diffusion-weighted imaging is suggested. Electronically Signed by: Rajeev Byrnes MD. (04/30/2025 17:47:40 EDT)
--- NOTE | 2025-04-30 19:47 | XRAY ---
Indication: Short of breath. Comparison: July 26, 2024 Portable apical lordotic chest demonstrates stable right perihilar postsurgical changes and a few tiny calcified granulomas. Remaining heart and lungs unremarkable. Bony thorax intact again with osteopenia and degenerative changes. No acute findings.
--- NOTE | 2025-04-30 20:04 | ERPHSYRPT ---
- History of Present Illness Time Seen by Provider: 04/30/25 15:21 Source: patient, family Patient Subjective Stated Complaint: pt here for high blood pressure today, he aslo states he has not felt well with cough and cold Triage Nursing Assessment: pt alert, walked in, resp easy, skin w/d/p. has swelling to lower legs, moves all ext well, occ cough,mask in place Physician History: HISTORY OF PRESENT ILLNESS 59-year-old male with a history of hypertension, asthma, COPD, and lung malignancy presented today for evaluation of high blood pressure after reporting feeling unwell, upper respiratory symptoms, and chest pain. He was found to be very hypertensive in the Emergency Department and received IV labetalol with improvement in blood pressure. BNP was elevated, troponin was normal, and chest x-ray showed concern for possible right lower lobe effusion. HEALTHCARE PROVIDERS - Dr. Kennedy (accepted for admission) PAST MEDICAL HISTORY - Hypertension - Asthma - Chronic obstructive pulmonary disease - Lung malignancy Allergies/Adverse Reactions: lisinopril Allergy (Mild, Verified 04/30/25 15:44) Anaphylactic Reaction doxycycline Allergy (Verified 04/30/25 15:44) naproxen Adverse Reaction (Mild, Verified 04/30/25 15:44) Rash Home Medications: Albuterol 2.5 mg/3 ml Neb [Proventil 2.5 mg/3 ml Neb] 1 neb IH QID PRN PRN 10/15/16 [History] Albuterol Sulfate [Proair Hfa] 2 puffs IH QIDPRN PRN 10/15/16 [History] Empagliflozin [Jardiance] 25 mg PO DAILY 03/30/22 [History] Metoprolol Tartrate 25 mg [Lopressor 25MG Tab] 25 mg PO BID 03/30/22 [History] Torsemide 20 mg [Demadex 20 mg] 10 mg PO DAILY 10/14/22 [History] Nortriptyline HCl 25 mg PO DAILY 04/18/23 [History] Famotidine 40 mg PO UD 08/02/24 [History] HydrALAzine HCL 25 MG TAB [Apresoline 25 MG TABLET] 25 mg PO UD 08/02/24 [History] Oxycodone / APAP 10/325 mg [Oxycodone-Acetaminophen 10-325] 1 tab PO UD 08/02/24 [History] Insulin Glargine [Lantus Insulin] 80 units SQ DAILY 01/20/25 [History] Ipratropium [place] 0.5 mg [Atrovent 0.5MG NEBULE] 1 vial IH QID 01/20/25 [History] Metoclopramide HCl 10 mg [Reglan 10 MG] 1 tab PO QID 01/20/25 [History] Pregabalin 50 mg [Lyrica 50MG] 50 mg PO DAILY 04/30/25 [History] Hx Tetanus, Diphtheria Vaccination/Date Given: Yes Hx Influenza Vaccination/Date Given: No Hx Pneumococcal Vaccination/Date Given: No Immunizations Up to Date: Yes Travel Risk - International Travel Have you traveled outside of the country in past 3 weeks: No - Emerging Infectious Disease Are you exhibiting symptoms associated with any current EIDs: Yes Symptoms: Cough: New Onset - Past Medical History Pertinent Past Medical History: Yes Neurological History: Peripheral Neuropathy ENT History: Cataracts Cardiac History: Hypertension Respiratory History: Asthma, COPD, Lung Cancer, Pneumonia, Other Endocrine Medical History: Diabetes Type II Musculoskeletal History: Fractures GI Medical History: GERD, Gallbladder Disease, Irritable Bowel, Other History: No Pertinent History Psycho-Social History: No Pertinent History Male Reproductive Disorders: No Pertinent History Other Medical History: HAS BEEN IN REMISSION FOR LUNG CANCER X 10 YEARS. HX FRACTURE RIBS AND T6, T7 6 YEARS AGO AFTER FALL FROM LADDER. 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 both cataracts removed- suboptical implant in;. rt middle lobe lung remove. right foot 03/17/2023. left foot 2024 Significant Family History: no pertinent family hx - Social History Smoking Status: Never smoker Exposure to second hand smoke: No Drug Use: none - Social Determinants of Health Will the patient participate in the screening: Yes Do you worry about a steady place to live?: No Do you have any problems with any of the following?: No known problems In the past 12 months,have you had to go without utilities?: No Transportation Issues: No Has anyone in your support network made you feel unsafe?: No Have you or anyone in your house had to go w/o enough food: No - Nursing Vital Signs Nursing Vital Signs: Initial Vital Signs Pulse Rate 72 04/30/25 15:43 Respiratory Rate 13 04/30/25 15:43 Blood Pressure 210/117 04/30/25 15:43 O2 Sat by Pulse Oximetry 98 04/30/25 15:43 Pain Scale Pain Intensity 4 - Physical Exam SpO2: 99 Comments: 04/30/25 20:28 PHYSICAL EXAM Vitals: Very hypertensive. General: Alert and oriented; moving all extremities; no acute distress. HEENT: Normocephalic. Respiratory: Lungs clear to auscultation bilaterally; no wheezing, rales, or crackles. Cardiovascular: Normal peripheral perfusion, 2+ RP. normal rate. GI: Non-tender. Integumentary: Warm. Musculoskeletal: Moving all extremities; trace peripheral edema. Neurologic: Alert; normal speech. Psychiatric: Appropriate. Ordered Tests: Active Orders 24 hr Category Date Time Status Projection Camera Operator STAT Care 04/30/25 15:57 Active EKG-ER Only STAT Care 04/30/25 15:55 Active IV Insertion STAT Care 04/30/25 15:55 Active Pulse Oximetry (ED) STAT Care 04/30/25 15:55 Active Re-Check Vital Signs STAT Care 04/30/25 15:55 Active CHEST 1 VIEW (PORTABLE) Stat Exams 04/30/25 16:59 Completed HEAD WITHOUT CONTRAST [CT] Stat Exams 04/30/25 16:59 Completed CBC W DIFF Stat Lab 04/30/25 16:10 Completed CMP Stat Lab 04/30/25 16:10 Completed NT PRO BNPII Stat Lab 04/30/25 16:10 Completed TROPONIN Q4H Lab 04/30/25 16:10 Completed TROPONIN Q4H Lab 04/30/25 20:15 Received TROPONIN Q4H Lab 05/01/25 00:00 Ordered Transfer Order Routine Transfer 04/30/25 Ordered Medication Summary Discontinued Medications Generic Name Dose Route Start Last Admin Trade Name Freq PRN Reason Stop Dose Admin Acetaminophen 975 mg 04/30/25 20:13 04/30/25 20:17 Acetaminophen 325 Mg Tablet PO 04/30/25 20:14 975 mg STAT STA Administration Acetaminophen Confirm 04/30/25 20:17 Acetaminophen 325 Mg Tablet Administered 04/30/25 20:18 Dose 975 mg .ROUTE .STK-MED ONE Hydralazine HCl 20 mg 04/30/25 15:58 04/30/25 16:39 Hydralazine Hcl 20 Mg/Ml Vial IV 04/30/25 15:59 20 mg STAT ONE Administration Hydralazine HCl Confirm 04/30/25 16:35 Hydralazine Hcl 20 Mg/Ml Vial Administered 04/30/25 16:36 Dose 20 mg .ROUTE .My Study RewardsK-MED ONE Lab/Rad Data: Laboratory Result Diagrams 04/30/25 16:10 04/30/25 16:10 Laboratory Results 04/30/25 04/30/25 04/30/25 Range/Units 16:10 16:10 16:10 WBC 11.5 H (4.23-9.07) x10^3/uL RBC 5.01 (4.63-6.08) x10^6/uL Hgb 15.0 (13.7-17.5) g/dL Hct 45.9 (40.1-51.0) % MCV 91.6 (79.0-92.2) fL MCH 29.9 (25.7-32.2) pg MCHC 32.7 (32.3-36.5) g/dL RDW 14.4 (11.6-14.4) % Plt Count 254 (163-337) x10^3/uL MPV 9.4 (9.4-12.4) fL Gran % 79.4 H (34.0-67.9) % Immature Gran % (Auto) 0.4 (0.001-0.429) % Nucleat RBC Rel Count 0.0 (0.00-0.2) % Eos # (Auto) 0.09 (0.04-0.54) x10^3/uL Immature Gran # (Auto) 0.05 H (0.001-0.031) x10^3u/L Absolute Lymphs (auto) 1.44 (1.32-3.57) x10^3/uL Absolute Monos (auto) 0.74 (0.30-0.82) x10^3/uL Absolute Nucleated RBC 0.00 (0.00-0.012) x10^3u/L Lymphocytes % 12.5 L (21.8-53.1) % Monocytes % 6.4 (5.3-12.2) % Eosinophils % 0.8 (0.8-7.0) % Basophils % 0.5 (0.2-1.2) % Absolute Granulocytes 9.15 H (1.78-5.38) x10^3/uL Basophils # 0.06 (0.01-0.08) x10^3/uL Sodium 139 (135-145) mmol/L Potassium 4.0 (3.5-5.1) mmol/L Chloride 105 (98-107) mmol/L Carbon Dioxide 28 (22-30) mmol/L Anion Gap 10.6 (5-15) MEQ/L BUN 21 H (9-20) mg/dL Creatinine 1.09 (0.66-1.25) mg/dL Estimated GFR 77.2 ML/MIN Glucose 160 H (74-106) mg/dL Calcium 9.3 (8.4-10.2) mg/dL Total Bilirubin 0.30 (0.2-1.3) mg/dL AST 27 (17-59) U/L ALT 21 (0-50) U/L Alkaline Phosphatase 121 (38-126) U/L Troponin I < 0.012 (0.000-0.033) ng/mL NT-Pro-B Natriuret Pep 342 (<300) pg/mL Serum Total Protein 6.9 (6.3-8.2) g/dL Albumin 4.2 (3.5-5.0) g/dL - Progress Progress Note: 04/30/25 20:29 SUMMARY 59-year-old male with hypertension, asthma, COPD, and lung malignancy presented with hypertensive urgency, upper respiratory symptoms, and chest pain. Exam showed alertness, clear lungs, and trace peripheral edema. BNP was elevated; EKG revealed sinus rhythm with right bundle branch block and prolonged QTc. Chest x-ray raised concern for possible right lower lobe effusion. No leukocytosis, anemia, or electrolyte derangements. After therapy, blood pressure improved. Case discussed with Dr. Kennedy, who accepted for admission. Diagnosis: hypertensive urgency, elevated BNP, right bundle branch block, possible effusion. Results and plan reviewed with patient. EKG A 12-lead EKG was performed at 16:42, and I independently interpret it as demonstrating sinus rhythm, right bundle branch block, no significant ST segment elevation or depression. No stemi. Additional findings: QRS borderline, prolonged QTc. IMAGING CXR: A one view portable CXR was obtained to evaluate for cardiopulmonary pathology. On my limited evaluation and independent interpretation of the images, possible right lower lobe effusion This imaging was independently interpreted by me. We do not have Radiology over- reads available today for x-ray imaging, and the final report of this image will be read by radiology at a later date. If there is discrepancy, radiology to inform the staff or patient of any abnormality or incidental finding. Patient/family informed of this and agreeable with evaluation and management. LABS The following laboratory tests were performed and independently reviewed with results being unremarkable: troponin, complete blood count (CBC) without leukocytosis or anemia, and basic metabolic panel (BMP) without significant electrolyte derangements. Notable laboratory findings included: BNP elevated. MEDICATION/FLUID ADMINISTRATION - Patient was administered IV labetalol in the ED for hypertension, with improvement in blood pressure. PATIENT DISCUSSION I discussed available results and the plan of care with the patient. BUSSER DISCUSSION I spoke with Dr. Kennedy, the admitting physician, and we discussed the patient's management, including history, exam, and work up. Dr. Kennedy graciously agreed to accept the patient for admission and will manage their further in-hospital care. MEDICAL DECISION MAKING This 59-year-old male with a history of hypertension, asthma, COPD, and lung malignancy presented with hypertensive urgency, upper respiratory symptoms, and chest pain. On examination, he was alert and oriented, with clear lungs and trace peripheral edema. Objective data included very elevated blood pressure, elevated BNP, normal troponin, and EKG showing sinus rhythm with right bundle branch block and prolonged QTc. Chest x-ray raised concern for a possible right lower lobe effusion. IV labetalol was administered in the ED, resulting in improvement of his blood pressure. No leukocytosis, anemia, or significant electrolyte derangements were noted. The elevated BNP and peripheral edema suggest possible underlying cardiac dysfunction, and the chest x-ray finding warrants further inpatient evaluation. Repeat assessment after antihypertensive therapy confirmed clinical stability. Given the combination of hypertensive urgency, elevated BNP, possible pleural effusion, and cardiac conduction abnormalities, admission is required for ongoing monitoring and management. The case was discussed with Dr. Kennedy, who accepted the patient for admission. Results and plan were reviewed with the patient. DISPOSITION Inpatient: Medicine Patient now meets inpatient-level severity due to hypertensive urgency with very elevated blood pressure, elevated BNP, and possible right lower lobe effusion on chest x-ray. EKG revealed right bundle branch block and prolonged QTc; trace peripheral edema noted on exam. Continuous cardiac monitoring and serial assessment of volume status require admission to a monitored medical unit. Condition: Stable - Departure Departure Disposition: Observation Clinical Impression: Hypertension, Chest pain, rule out acute myocardial infarction, Lightheadedness Condition: Stable Critical Care Time: No Referrals: HARRISON VENTURA MD [Primary Care Provider, INTERNAL MEDICINE] - Follow up/PCP as directed
[2025-04-30] MEDS: TYLENOL 325 MG PO STA (20:17)
[2025-04-30] MEDS ORDERED: TYLENOL 325 MG ONE (20:17)
[2025-04-30] MEDS: Imdur 60MG PO STA (21:56)
[2025-04-30] MEDS: Trandate 100 MG PO SCH (21:56)
--- NOTE | 2025-05-01 00:10 | PCM.HP ---
History of Present Illness - Chief Complaint Chief Complaint: chest pain rule out Date: 04/30/25 History of Present Illness: The patient is a 59-year-old male with a PMH of hypertension, asthma, type II DM, and peripheral neuropathy who presents to the emergency room with complaints of feeling unwell and elevated blood pressure. The patient reports that he initially had cold-like symptoms over the past 2 to 3 days with a nonproductive cough and nasal congestion. He reports that his symptoms were gradually improving but that earlier today he began to feel generally unwell and experienced some lightheadedness. He proceeded to check his blood pressure and noticed that his systolic was in the 190-200 range. He reports compliance with his medications at home. He denied experiencing chest pain or shortness of breath. Also denies nausea, vomiting, abdominal pain, or diarrhea. He also denied fever, chills, or headache. The patient underwent an extensive evaluation in the emergency department with chest x-ray showing chronic changes with no acute abnormalities noted. CT head was unremarkable. Laboratory evaluation revealed leukocytosis of 11.5, with troponin less than 0.012 and proBNP 342. The patient's blood pressure upon arrival in the ED was 210/117 with pulse 72, respiratory rate 13, and SpO2 98% on room air. The case was discussed with the ER provider in detail and chart was reviewed. Review of Systems: A complete and thorough review of system was performed and was negative except as stated in the HPI. Physical Examination: General: Well-nourished, in no acute distress. Overweight HEENT: Head atruamatic normocephaic, PERRL, no scleral icterus, no oral lesions Cardiovascular: Regular rate and rhythm, S1S2 normal, no murmurs appreciated Respiratory: Clear to auscultation bilaterally, no wheezes, rales, rhonchi Abdomen: Soft, nontender, nondistended, normoactive bowel sounds, no guarding Musculoskeletal: Full range of motion. No obvious swelling or tenderness noted Neurological: Alert and oriented x 3. Strength 5/5 in all extremities grossly, no obvious focal deficits noted Psychiatric: Normal mood, affect, with cohesive thought process Assessment & Plan Hypertensive urgency - Status post hydralazine 20 mg IV push in the emergency department along with labetalol 200 mg p.o. once and Imdur 60 mg p.o. once - Initiate Norvasc 10 mg po qd - Resume patient's home medications of hydralazine 25 mg 4 times daily Chronic conditions: Type II DM, asthma - Patient reports taking Lantus 40 units SQ twice daily - Resume Lantus 25 units twice daily for now with insulin sliding scale and blood glucose monitoring - Continue with albuterol inhaler as needed DVT prophylaxis: Lovenox subcu CODE STATUS: Full code Medications & Allergies Home Medications: Home Medication List Albuterol 2.5 mg/3 ml Neb [Proventil 2.5 mg/3 ml Neb] 1 neb IH QID PRN PRN 10/15/16 [History Confirmed 04/30/25] Albuterol Sulfate [Proair Hfa] 2 puffs IH QIDPRN PRN 10/15/16 [History Confirmed 04/30/25] Empagliflozin [Jardiance] 25 mg PO DAILY 03/30/22 [History Confirmed 04/30/25] Metoprolol Tartrate 25 mg [Lopressor 25MG Tab] 25 mg PO BID 03/30/22 [History Confirmed 04/30/25] Torsemide 20 mg [Demadex 20 mg] 10 mg PO DAILY 10/14/22 [History Confirmed 04/30/25] Nortriptyline HCl 25 mg PO DAILY 04/18/23 [History Confirmed 04/30/25] Famotidine 40 mg PO UD 08/02/24 [History Confirmed 04/30/25] HydrALAzine HCL 25 MG TAB [Apresoline 25 MG TABLET] 25 mg PO UD 08/02/24 [History Confirmed 04/30/25] Oxycodone / APAP 10/325 mg [Oxycodone-Acetaminophen 10-325] 1 tab PO UD [History Confirmed 04/30/25] Insulin Glargine [Lantus Insulin] 40 units SQ BID 01/20/25 [History Confirmed 04/30/25] Ipratropium Wylie 0.5 mg [Atrovent 0.5MG NEBULE] 1 vial IH QID 01/20/25 [History Confirmed 04/30/25] Metoclopramide HCl 10 mg [Reglan 10 MG] 1 tab PO QID 01/20/25 [History Confirmed 04/30/25] Pregabalin 50 mg [Lyrica 50MG] 50 mg PO DAILY 04/30/25 [History Confirmed 04/30/25] Allergies/Adverse Reactions: Allergies Allergy/AdvReac Type Severity Reaction Status Date / Time lisinopril Allergy Mild Anaphylactic Verified 04/30/25 15:44 Reaction doxycycline Allergy Verified 04/30/25 15:44 naproxen AdvReac Mild Rash Verified 04/30/25 15:44 - Past Medical History Past Medical History: Yes Neurological History: Peripheral Neuropathy ENT History: Cataracts Cardiac History: Hypertension Respiratory History: Asthma, COPD, Lung Cancer, Pneumonia, Other Endocrine Medical History: Diabetes Type II Musculoskelatal History: Fractures GI Medical History: GERD, Irritable Bowel, Other History: No Pertinent History Pyscho-Social History: No Pertinent History Male Reproductive Disorders: No Pertinent History Comment: HAS BEEN IN REMISSION FOR LUNG CANCER X 10 YEARS. HX FRACTURE RIBS AND T6, T7 6 YEARS AGO AFTER FALL FROM LADDER. 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 both cataracts removed-suboptical implant in;. rt middle lobe lung remove. right foot 03/17/2023. left foot 2024 Significant Family History: no pertinent family hx - Social History Smoking Status: Never smoker Exposure to second hand smoke: No Alcohol: None Drug Use: none - Social Determinants of Health Will the patient participate in the screening: Yes Do you worry about a steady place to live?: No Do you have any problems with any of the following?: No known problems In the past 12 months,have you had to go without utilities?: Yes Have you or anyone in your house had to go without enough: No Transportation Issues: No Has anyone in your support network made you feel unsafe?: No Does the patient want assistance with any of the above?: No - Physical Exam Vital Signs: Vital Signs - 24 hr Temp Pulse Resp BP BP Pulse Ox 04/30/25 21:09 97.4 F 95 H 18 203/110 95 04/30/25 20:31 99 04/30/25 20:00 94 H 18 178/102 97 04/30/25 19:45 92 H 16 182/106 99 04/30/25 19:30 93 H 22 169/109 98 04/30/25 19:18 95 H 19 196/97 98 04/30/25 19:17 103 H 15 98 04/30/25 19:00 91 H 18 170/96 97 04/30/25 18:45 92 H 19 154/90 97 04/30/25 18:30 90 18 147/86 97 04/30/25 18:15 91 H 15 163/86 97 04/30/25 18:00 89 18 159/85 97 04/30/25 17:49 90 19 167/86 97 04/30/25 17:45 91 H 19 175/91 97 04/30/25 17:40 93 H 19 98 04/30/25 17:34 99 H 26 H 99 04/30/25 17:11 100 H 23 158/85 97 04/30/25 17:04 92 H 21 98 04/30/25 16:45 76 19 195/109 97 04/30/25 16:43 76 18 197/114 96 04/30/25 16:41 74 21 191/104 97 04/30/25 16:40 74 17 98 04/30/25 16:32 72 18 97 04/30/25 16:14 72 20 181/98 97 04/30/25 16:12 73 16 189/129 97 04/30/25 15:51 72 20 199/109 04/30/25 15:43 72 13 210/117 98 Results - Labs Lab/Micro Results: Lab Results-Last 24 Hours 04/30/25 04/30/25 04/30/25 Range/Units 16:10 16:10 16:10 WBC 11.5 H (4.23-9.07) x10^3/uL RBC 5.01 (4.63-6.08) x10^6/uL Hgb 15.0 (13.7-17.5) g/dL Hct 45.9 (40.1-51.0) % MCV 91.6 (79.0-92.2) fL MCH 29.9 (25.7-32.2) pg MCHC 32.7 (32.3-36.5) g/dL RDW 14.4 (11.6-14.4) % Plt Count 254 (163-337) x10^3/uL MPV 9.4 (9.4-12.4) fL Gran % 79.4 H (34.0-67.9) % Immature Gran % (Auto) 0.4 (0.001-0.429) % Nucleat RBC Rel Count 0.0 (0.00-0.2) % Eos # (Auto) 0.09 (0.04-0.54) x10^3/uL Immature Gran # (Auto) 0.05 H (0.001-0.031) x10^3u/L Absolute Lymphs (auto) 1.44 (1.32-3.57) x10^3/uL Absolute Monos (auto) 0.74 (0.30-0.82) x10^3/uL Absolute Nucleated RBC 0.00 (0.00-0.012) x10^3u/L Lymphocytes % 12.5 L (21.8-53.1) % Monocytes % 6.4 (5.3-12.2) % Eosinophils % 0.8 (0.8-7.0) % Basophils % 0.5 (0.2-1.2) % Absolute Granulocytes 9.15 H (1.78-5.38) x10^3/uL Basophils # 0.06 (0.01-0.08) x10^3/uL Sodium 139 (135-145) mmol/L Potassium 4.0 (3.5-5.1) mmol/L Chloride 105 (98-107) mmol/L Carbon Dioxide 28 (22-30) mmol/L Anion Gap 10.6 (5-15) MEQ/L BUN 21 H (9-20) mg/dL Creatinine 1.09 (0.66-1.25) mg/dL Estimated GFR 77.2 ML/MIN Glucose 160 H (74-106) mg/dL POC Glucometer (74 to 106) mg/dL Calcium 9.3 (8.4-10.2) mg/dL Total Bilirubin 0.30 (0.2-1.3) mg/dL AST 27 (17-59) U/L ALT 21 (0-50) U/L Alkaline Phosphatase 121 (38-126) U/L Troponin I < 0.012 (0.000-0.033) ng/mL NT-Pro-B Natriuret Pep 342 (<300) pg/mL Serum Total Protein 6.9 (6.3-8.2) g/dL Albumin 4.2 (3.5-5.0) g/dL 04/30/25 04/30/25 Range/Units 20:15 22:00 WBC (4.23-9.07) x10^3/uL RBC (4.63-6.08) x10^6/uL Hgb (13.7-17.5) g/dL Hct (40.1-51.0) % MCV (79.0-92.2) fL MCH (25.7-32.2) pg MCHC (32.3-36.5) g/dL RDW (11.6-14.4) % Plt Count (163-337) x10^3/uL MPV (9.4-12.4) fL Gran % (34.0-67.9) % Immature Gran % (Auto) (0.001-0.429) % Nucleat RBC Rel Count (0.00-0.2) % Eos # (Auto) (0.04-0.54) x10^3/uL Immature Gran # (Auto) (0.001-0.031) x10^3u/L Absolute Lymphs (auto) (1.32-3.57) x10^3/uL Absolute Monos (auto) (0.30-0.82) x10^3/uL Absolute Nucleated RBC (0.00-0.012) x10^3u/L Lymphocytes % (21.8-53.1) % Monocytes % (5.3-12.2) % Eosinophils % (0.8-7.0) % Basophils % (0.2-1.2) % Absolute Granulocytes (1.78-5.38) x10^3/uL Basophils # (0.01-0.08) x10^3/uL Sodium (135-145) mmol/L Potassium (3.5-5.1) mmol/L Chloride (98-107) mmol/L Carbon Dioxide (22-30) mmol/L Anion Gap (5-15) MEQ/L BUN (9-20) mg/dL Creatinine (0.66-1.25) mg/dL Estimated GFR ML/MIN Glucose (74-106) mg/dL POC Glucometer 107 H (74 to 106) mg/dL Calcium (8.4-10.2) mg/dL Total Bilirubin (0.2-1.3) mg/dL AST (17-59) U/L ALT (0-50) U/L Alkaline Phosphatase (38-126) U/L Troponin I < 0.012 (0.000-0.033) ng/mL NT-Pro-B Natriuret Pep (<300) pg/mL Serum Total Protein (6.3-8.2) g/dL Albumin (3.5-5.0) g/dL - Radiology Impressions Radiology Exams & Impressions: Radiology Procedures Category Date Time Status CHEST 1 VIEW (PORTABLE) Stat Exams 04/30/25 16:59 Completed HEAD WITHOUT CONTRAST [CT] Stat Exams 04/30/25 16:59 Completed Telemedicine Encounter - Telemedicine Encounter Telemedicine Encounter: "The entirety of this encounter was performed via Telemedicine" This visit was performed using real-time audio and video connection between my location and thepatients locationwith the assistance of a surrogateat the patients location. Written or verbal consent was obtained from the patient/guardian to perform this visit [email or web address] technology. Any patient questions regarding the telemedicine interaction were answered.
[2025-05-01] MEDS ORDERED: PROVENTIL 2.5 MG/3 ML NEB IH PRN (00:36)
[2025-05-01] MEDS ORDERED: Apresoline 25 MG TABLET PO SCH (00:45)
[2025-05-01] MEDS: IMODIUM 2 MG PO ONE (04:30)
[2025-05-01 05:18] LABS: Hematocrit 42.9 % (40.1-51.0); Hemoglobin 14.0 g/dL (13.7-17.5); Mean Corpuscular Hemoglobin 30.0 pg (25.7-32.2); Mean Corpuscular Hgb Concent. 32.6 g/dL (32.3-36.5); Platelet Count 271 x10^3/uL (163-337); Red Blood Count 4.67 x10^6/uL (4.63-6.08); White Blood Count 10.7 x10^3/uL (4.23-9.07)
[2025-05-01] MEDS ORDERED: MEDICATION INTERVENTION MC SCH (07:30)
[2025-05-01] MEDS: HUMALOG SQ PRN (08:15)
[2025-05-01 09:27] LABS: INFLUENZA A NEGATIVE (NEGATIVE); INFLUENZA B NEGATIVE (NEGATIVE); RESPIRATORY SYNCTIAL VIRUS NEGATIVE (NEGATIVE); SARS-CoV-2 Xpert Express NEGATIVE (NEGATIVE)
[2025-05-01] MEDS: Lopressor 25MG Tab PO SCH (10:54)
[2025-05-01] MEDS: Apresoline 25 MG TABLET PO SCH ×2 (10:54→11:06)
[2025-05-01] MEDS: Lyrica 50MG PO SCH (10:57)
[2025-05-01] MEDS: DEMADEX 20 MG PO SCH (10:57)
[2025-05-01] MEDS: NORVASC 5 MG PO SCH (10:58)
[2025-05-01] MEDS: Lantus Insulin SQ SCH (10:58)
[2025-05-01] MEDS: ENOXAPARIN SODIUM SQ SCH (10:59)
[2025-05-01 12:10] VITALS: PULSE 71; RESP 22
[2025-05-01 12:11] VITALS: BP 150/75; TEMP 98.3; O2SAT 92
--- NOTE | 2025-05-01 12:21 | PCM.DS ---
Discharge Summary Date of Admission: 04/30/25 20:46 Date of Discharge: 05/01/25 Admitting Physician: PATRIC VAUGHN MD Primary Care Provider: HARRISON VENTURA Allergies Allergies lisinopril Allergy (Mild, Verified 04/30/25 15:44) Anaphylactic Reaction doxycycline Allergy (Verified 04/30/25 15:44) naproxen Adverse Reaction (Mild, Verified 04/30/25 15:44) Rash Hospital Summary - Hospital Course Hospital Course: Mr. Benítez is a 59-year-old male with a history of hypertension, asthma, type II diabetes mellitus, and peripheral neuropathy who presented to the emergency department with complaints of feeling unwell, lightheadedness, and markedly elevated blood pressure. He noted preceding upper respiratory symptoms with cough and congestion that were improving, but on the day of presentation his systolic blood pressure was measured in the [id number]. He denied chest pain, shortness of breath, fever, chills, headache, or gastrointestinal symptoms. On evaluation, initial blood pressure was 210/117 mmHg with otherwise stable vital signs. Chest x-ray showed chronic changes without acute pathology, and CT head was unremarkable. Laboratory evaluation was notable for mild leukocytosis (WBC 11.5), proBNP 342, and negative troponin (<0.012). His blood pressure improved after receiving IV hydralazine, oral labetalol, and isosorbide mononitrate in the emergency department. The patient has remained clinically stable with blood pressure returned to baseline. He is requesting discharge today. He will be discharged home with adjustments to his antihypertensive regimen and close outpatient follow-up. Discharge Note New Diagnosis: Hyptensive urgency New Medications: Amlodipine 10mg daily - change hydralazine to 50mg bid Follow Up: PCP- keep BP log I spent 35 minutes [id number] with the patient on the day of discharge performing discharge exam, discussing hospital stay and discharge instructions with patient and caregivers, preparation of discharge records, prescriptions & referral forms and addressing any questions/concerns the patient had as documented above. - Vitals & Intake/Output Vital Signs: Vital Signs Temperature 98.3 F 05/01/25 12:00 Pulse Rate 71 05/01/25 12:00 Respiratory Rate 22 05/01/25 12:00 Blood Pressure 150/75 05/01/25 12:00 O2 Sat by Pulse Oximetry 92 L 05/01/25 12:00 Intake & Output: Intake & Output 04/29/25 04/30/25 05/01/25 05/02/25 11:59 11:59 11:59 11:59 Intake Total 720 Balance 720 Weight 95.3 kg - Lab Result Diagrams: 05/01/25 03:00 04/30/25 16:10 Lab Results-Last 24 Hrs: Lab Results-Last 24 Hours 04/30/25 04/30/25 04/30/25 Range/Units 16:10 16:10 16:10 WBC 11.5 H (4.23-9.07) x10^3/uL RBC 5.01 (4.63-6.08) x10^6/uL Hgb 15.0 (13.7-17.5) g/dL Hct 45.9 (40.1-51.0) % MCV 91.6 (79.0-92.2) fL MCH 29.9 (25.7-32.2) pg MCHC 32.7 (32.3-36.5) g/dL RDW 14.4 (11.6-14.4) % Plt Count 254 (163-337) x10^3/uL MPV 9.4 (9.4-12.4) fL Gran % 79.4 H (34.0-67.9) % Immature Gran % (Auto) 0.4 (0.001-0.429) % Nucleat RBC Rel Count 0.0 (0.00-0.2) % Eos # (Auto) 0.09 (0.04-0.54) x10^3/uL Immature Gran # (Auto) 0.05 H (0.001-0.031) x10^3u/L Absolute Lymphs (auto) 1.44 (1.32-3.57) x10^3/uL Absolute Monos (auto) 0.74 (0.30-0.82) x10^3/uL Absolute Nucleated RBC 0.00 (0.00-0.012) x10^3u/L Lymphocytes % 12.5 L (21.8-53.1) % Monocytes % 6.4 (5.3-12.2) % Eosinophils % 0.8 (0.8-7.0) % Basophils % 0.5 (0.2-1.2) % Absolute Granulocytes 9.15 H (1.78-5.38) x10^3/uL Basophils # 0.06 (0.01-0.08) x10^3/uL Sodium 139 (135-145) mmol/L Potassium 4.0 (3.5-5.1) mmol/L Chloride 105 (98-107) mmol/L Carbon Dioxide 28 (22-30) mmol/L Anion Gap 10.6 (5-15) MEQ/L BUN 21 H (9-20) mg/dL Creatinine 1.09 (0.66-1.25) mg/dL Estimated GFR 77.2 ML/MIN Glucose 160 H (74-106) mg/dL POC Glucometer (74 to 106) mg/dL Calcium 9.3 (8.4-10.2) mg/dL Total Bilirubin 0.30 (0.2-1.3) mg/dL AST 27 (17-59) U/L ALT 21 (0-50) U/L Alkaline Phosphatase 121 (38-126) U/L Troponin I < 0.012 (0.000-0.033) ng/mL NT-Pro-B Natriuret Pep 342 (<300) pg/mL Serum Total Protein 6.9 (6.3-8.2) g/dL Albumin 4.2 (3.5-5.0) g/dL Influenza Type A Ag (NEGATIVE) Influenza Type B Ag (NEGATIVE) RSV (PCR) (NEGATIVE) SARS-CoV-2 (PCR) (NEGATIVE) 04/30/25 04/30/25 05/01/25 Range/Units 20:15 22:00 00:49 WBC (4.23-9.07) x10^3/uL RBC (4.63-6.08) x10^6/uL Hgb (13.7-17.5) g/dL Hct (40.1-51.0) % MCV (79.0-92.2) fL MCH (25.7-32.2) pg MCHC (32.3-36.5) g/dL RDW (11.6-14.4) % Plt Count (163-337) x10^3/uL MPV (9.4-12.4) fL Gran % (34.0-67.9) % Immature Gran % (Auto) (0.001-0.429) % Nucleat RBC Rel Count (0.00-0.2) % Eos # (Auto) (0.04-0.54) x10^3/uL Immature Gran # (Auto) (0.001-0.031) x10^3u/L Absolute Lymphs (auto) (1.32-3.57) x10^3/uL Absolute Monos (auto) (0.30-0.82) x10^3/uL Absolute Nucleated RBC (0.00-0.012) x10^3u/L Lymphocytes % (21.8-53.1) % Monocytes % (5.3-12.2) % Eosinophils % (0.8-7.0) % Basophils % (0.2-1.2) % Absolute Granulocytes (1.78-5.38) x10^3/uL Basophils # (0.01-0.08) x10^3/uL Sodium (135-145) mmol/L Potassium (3.5-5.1) mmol/L Chloride (98-107) mmol/L Carbon Dioxide (22-30) mmol/L Anion Gap (5-15) MEQ/L BUN (9-20) mg/dL Creatinine (0.66-1.25) mg/dL Estimated GFR ML/MIN Glucose (74-106) mg/dL POC Glucometer 107 H 186 H (74 to 106) mg/dL Calcium (8.4-10.2) mg/dL Total Bilirubin (0.2-1.3) mg/dL AST (17-59) U/L ALT (0-50) U/L Alkaline Phosphatase (38-126) U/L Troponin I < 0.012 (0.000-0.033) ng/mL NT-Pro-B Natriuret Pep (<300) pg/mL Serum Total Protein (6.3-8.2) g/dL Albumin (3.5-5.0) g/dL Influenza Type A Ag (NEGATIVE) Influenza Type B Ag (NEGATIVE) RSV (PCR) (NEGATIVE) SARS-CoV-2 (PCR) (NEGATIVE) 05/01/25 05/01/25 05/01/25 Range/Units 03:00 03:08 07:13 WBC 10.7 H (4.23-9.07) x10^3/uL RBC 4.67 (4.63-6.08) x10^6/uL Hgb 14.0 (13.7-17.5) g/dL Hct 42.9 (40.1-51.0) % MCV 91.9 (79.0-92.2) fL MCH 30.0 (25.7-32.2) pg MCHC 32.6 (32.3-36.5) g/dL RDW 15.0 H (11.6-14.4) % Plt Count 271 (163-337) x10^3/uL MPV 10.2 (9.4-12.4) fL Gran % (34.0-67.9) % Immature Gran % (Auto) (0.001-0.429) % Nucleat RBC Rel Count (0.00-0.2) % Eos # (Auto) (0.04-0.54) x10^3/uL Immature Gran # (Auto) (0.001-0.031) x10^3u/L Absolute Lymphs (auto) (1.32-3.57) x10^3/uL Absolute Monos (auto) (0.30-0.82) x10^3/uL Absolute Nucleated RBC (0.00-0.012) x10^3u/L Lymphocytes % (21.8-53.1) % Monocytes % (5.3-12.2) % Eosinophils % (0.8-7.0) % Basophils % (0.2-1.2) % Absolute Granulocytes (1.78-5.38) x10^3/uL Basophils # (0.01-0.08) x10^3/uL Sodium (135-145) mmol/L Potassium (3.5-5.1) mmol/L Chloride (98-107) mmol/L Carbon Dioxide (22-30) mmol/L Anion Gap (5-15) MEQ/L BUN (9-20) mg/dL Creatinine (0.66-1.25) mg/dL Estimated GFR ML/MIN Glucose (74-106) mg/dL POC Glucometer 157 H (74 to 106) mg/dL Calcium (8.4-10.2) mg/dL Total Bilirubin (0.2-1.3) mg/dL AST (17-59) U/L ALT (0-50) U/L Alkaline Phosphatase (38-126) U/L Troponin I < 0.012 (0.000-0.033) ng/mL NT-Pro-B Natriuret Pep (<300) pg/mL Serum Total Protein (6.3-8.2) g/dL Albumin (3.5-5.0) g/dL Influenza Type A Ag (NEGATIVE) Influenza Type B Ag (NEGATIVE) RSV (PCR) (NEGATIVE) SARS-CoV-2 (PCR) (NEGATIVE) 05/01/25 05/01/25 Range/Units 08:49 11:06 WBC (4.23-9.07) x10^3/uL RBC (4.63-6.08) x10^6/uL Hgb (13.7-17.5) g/dL Hct (40.1-51.0) % MCV (79.0-92.2) fL MCH (25.7-32.2) pg MCHC (32.3-36.5) g/dL RDW (11.6-14.4) % Plt Count (163-337) x10^3/uL MPV (9.4-12.4) fL Gran % (34.0-67.9) % Immature Gran % (Auto) (0.001-0.429) % Nucleat RBC Rel Count (0.00-0.2) % Eos # (Auto) (0.04-0.54) x10^3/uL Immature Gran # (Auto) (0.001-0.031) x10^3u/L Absolute Lymphs (auto) (1.32-3.57) x10^3/uL Absolute Monos (auto) (0.30-0.82) x10^3/uL Absolute Nucleated RBC (0.00-0.012) x10^3u/L Lymphocytes % (21.8-53.1) % Monocytes % (5.3-12.2) % Eosinophils % (0.8-7.0) % Basophils % (0.2-1.2) % Absolute Granulocytes (1.78-5.38) x10^3/uL Basophils # (0.01-0.08) x10^3/uL Sodium (135-145) mmol/L Potassium (3.5-5.1) mmol/L Chloride (98-107) mmol/L Carbon Dioxide (22-30) mmol/L Anion Gap (5-15) MEQ/L BUN (9-20) mg/dL Creatinine (0.66-1.25) mg/dL Estimated GFR ML/MIN Glucose (74-106) mg/dL POC Glucometer 169 H (74 to 106) mg/dL Calcium (8.4-10.2) mg/dL Total Bilirubin (0.2-1.3) mg/dL AST (17-59) U/L ALT (0-50) U/L Alkaline Phosphatase (38-126) U/L Troponin I (0.000-0.033) ng/mL NT-Pro-B Natriuret Pep (<300) pg/mL Serum Total Protein (6.3-8.2) g/dL Albumin (3.5-5.0) g/dL Influenza Type A Ag NEGATIVE (NEGATIVE) Influenza Type B Ag NEGATIVE (NEGATIVE) RSV (PCR) NEGATIVE (NEGATIVE) SARS-CoV-2 (PCR) NEGATIVE (NEGATIVE) Micro Results-Entire Visit: Accuchecks Date 05/01/25 - Radiology Exams Ordered Rad Exams-Entire Visit: Radiology Procedures Category Date Time Status CHEST 1 VIEW (PORTABLE) Stat Exams 04/30/25 16:59 Completed HEAD WITHOUT CONTRAST [CT] Stat Exams 04/30/25 16:59 Completed - Procedures and Test Procedures and Tests throughout Hospitalization: Therapy Orders & Screens 05/01/25 01:09 Respiratory Therapy Assessment DAILY Comment: Diagnosis: chest pain rule out Discharge Exam General Appearance: no apparent distress Neurologic Exam: alert, oriented x 3, cooperative Eye Exam: PERRL Ears, Nose, Throat Exam: normal ENT inspection Neck Exam: normal inspection Respiratory Exam: normal breath sounds, lungs clear Cardiovascular Exam: regular rate/rhythm, normal heart sounds Gastrointestinal/Abdomen Exam: soft, normal bowel sounds Male Genitalia Exam: deferred Rectal Exam: deferred Back Exam: normal inspection Extremity Exam: normal inspection Skin Exam: normal color Final Diagnosis/Problem List - Final Discharge Diagnosis/Problem (1) Hypertensive urgency Current Visit: Yes Status: Acute Assessment & Plan: Status post IV hydralazine, oral labetalol, and isosorbide mononitrate in the ED. Discharge regimen: hydralazine 50 mg PO BID, amlodipine 10 mg PO daily, and continuation of metoprolol tartrate 25 mg PO BID. Patient instructed to keep a daily blood pressure log. Follow-up with primary care provider scheduled for 05/02/25. Code(s): I16.0 - HYPERTENSIVE URGENCY (2) DMII (diabetes mellitus, type 2) Current Visit: Yes Status: Acute Assessment & Plan: Resume insulin glargine 25 units SQ BID with sliding scale insulin coverage. Blood glucose monitoring before meals and at bedtime. Continue outpatient diabetes management under PCP. (3) Asthma Current Visit: Yes Status: Acute Assessment & Plan: Continue albuterol inhaler as needed for wheezing or dyspnea. No acute exacerbation noted during this admission. Code(s): J45.909 - UNSPECIFIED ASTHMA, UNCOMPLICATED (4) Peripheral neuropathy Current Visit: Yes Status: Acute Assessment & Plan: Continue home regimen for neuropathic pain management. Reinforce daily foot care and ongoing monitoring for complications. Code(s): G62.9 - POLYNEUROPATHY, UNSPECIFIED - Discharge Discharge Date: 05/01/25 Disposition: Home, Self-Care Condition: Stable Prescriptions: New Hydralazine HCl 50 mg PO BID 30 Days #60 tablet Amlodipine Besylate 5 mg [Norvasc 5 mg] 10 mg PO QAM 30 Days #30 tablet Continue Albuterol Sulfate [Proair Hfa] 2 puffs IH QIDPRN PRN PRN Reason: sob Albuterol 2.5 mg/3 ml Neb [Proventil 2.5 mg/3 ml Neb] 1 neb IH QID PRN PRN PRN Reason: sob Metoprolol Tartrate 25 mg [Lopressor 25MG Tab] 25 mg PO BID Empagliflozin [Jardiance] 25 mg PO DAILY Torsemide 20 mg [Demadex 20 mg] 10 mg PO DAILY Nortriptyline HCl 25 mg PO DAILY Oxycodone / APAP 10/325 mg [Oxycodone-Acetaminophen 10-325] 1 tab PO UD Famotidine 40 mg PO UD Insulin Glargine [Lantus Insulin] 40 units SQ BID Ipratropium [place] 0.5 mg [Atrovent 0.5MG NEBULE] 1 vial IH QID Metoclopramide HCl 10 mg [Reglan 10 MG] 1 tab PO QID Pregabalin 50 mg [Lyrica 50MG] 50 mg PO DAILY Discontinued HydrALAzine HCL 25 MG TAB [Apresoline 25 MG TABLET] 25 mg PO QID Follow up with: HARRISON VENTURA MD [Primary Care Provider, INTERNAL MEDICINE] - 05/02/25
== END 2025-05-01 14:07 | disposition home or self-care (01) ==
LOC: ED 15:20 → MED SURG 20:46
PROVIDERS: ADMIT Internal Medicine; ATTEND Internal Medicine
DX: I16.0 Hypertensive urgency (principal); E11.9 Type 2 diabetes mellitus without complications; J45.909 Unspecified asthma, uncomplicated; G62.9 Polyneuropathy, unspecified; I10 Essential (primary) hypertension; Z79.899 Other long term (current) drug therapy; Z85.118 Personal history of other malignant neoplasm of bronchus and lung
CPT/HCPCS: 36415; 70450; 71045; 80053; 82947; 83880; 84484; 85025; 85027; 87637; 93005; 93041; 93268; 94760; 96374; 99285; G0378; Q3014